=== PATIENT | female | born 1990 | race Caucasian/White ===

== ENCOUNTER 2016-07-27 17:57 | Emergency (ER) | payer MEDICARE, OTHER ==
[2016-07-27] MEDS ORDERED: SODIUM CHLORIDE 0.9% 1,000 ML IV STA (18:31)
[2016-07-27] MEDS ORDERED: ONDANSETRON 4 MG/2 ML VIAL IVP STA (18:31)
--- NOTE | 2016-07-27 18:39 | ED ---
General Adult HPI - General Chief complaint: Nausea/Vomiting/Diarrhea Stated complaint: CHEST CONGESTION, VOMITING, POSS UTI Time Seen by Provider: 07/27/16 18:16 Source: patient, RN notes reviewed Mode of arrival: wheelchair Limitations: physical limitation - History of Present Illness Initial comments: Patient is a 25 [place] presenting to emergency Department with chief complaint of chest congestion for the past 3 days, one episode of vomiting earlier this evening as well as urinary tract infection symptoms including frequency and foul odor for the past 2 days. Patient has a past medical history significant for spina bifida, renal stones and ovarian problems. She denies any vaginal discharge or specific abdominal pain or back pain. She reports that she does have a chest pain that is worse with cough, and she notices that she has chest pain while laying down. She reports it is mainly in the anterior chest towards the right side of her chest. She states that she does have a history of tachycardia states that that is normal for her. Patient reports that she's felt slightly chilled, but denies specific fever. Patient denies any lower extremity swelling, she does report that she has extremely limited movement of the lower extremities due to spina bifida. Denies any recent fever, back pain, abdominal pain, nausea vomiting, numbness or tingling , dysuria or hematuria, constipation or diarrhea, headaches or visual changes, or any other current symptoms. - Related Data Home Medications Medication Instructions Recorded Confirmed D-Methorphan/Acetamin/Doxylamn 10 ml PO Q6H PRN 07/27/16 07/27/16 [Vicks Nyquil Cold & Flu Liquid] Previous Rx's Medication Instructions Recorded Levofloxacin [Levaquin] 750 mg PO DAILY #5 tab 07/27/16 methylPREDNISolone Dose Pack 4 mg PO DIRECTED #21 package 07/27/16 [Medrol Dose Pack] Allergies Allergy/AdvReac Type Severity Reaction Status Date / Time Latex, Natural Rubber Allergy FEVER Verified 07/27/16 18:38 Review of Systems ROS Statement: Those systems with pertinent positive or pertinent negative responses have been documented in the HPI. ROS Other: All systems not noted in ROS Statement are negative. 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 LEAD RECREATION ASSISTANT shunt. Past Anesthesia/Blood Transfusion Reactions: No Reported Reaction Past Psychological History: No Psychological Hx Reported Additional Psychological History / Comment(s): Single has a boyfriend who helps her in the home setting. Relates her she's living right now there is no running water and she understands that is a significant problem. Currently trying to move into a new situation with her fianc so he can have a safer setting. Knows to use alcohol based hand hall cleaner. She of course does straight cath and hand hygiene is very important. no travel history. No animal exposures. No experience no current work history Smoking Status: Never smoker Past Alcohol Use History: None Reported Past Drug Use History: None Reported - Past Family History Mother Family Medical History: Cancer Additional Family Medical History / Comment(s): grandparents - lung General Exam - General Exam Comments Initial Comments: Patient is a pleasant 25-year-old female. She does not appear to be in any specific distress at this time. Limitations: physical limitation (Patient has history of spina bifida, she is unable to ambulate.) General appearance: alert, in no apparent distress Head exam: Present: atraumatic, normocephalic, normal inspection Eye exam: Present: normal appearance, PERRL, EOMI. Absent: scleral icterus, conjunctival injection, periorbital swelling ENT exam: Present: normal exam, normal oropharynx (Mildly erythematous oropharynx), mucous membranes moist, TM's normal bilaterally Neck exam: Present: normal inspection. Absent: tenderness, meningismus, lymphadenopathy Respiratory exam: Present: normal lung sounds bilaterally. Absent: respiratory distress, wheezes, rales, rhonchi, stridor Cardiovascular Exam: Present: regular rate, normal rhythm, normal heart sounds. Absent: systolic murmur, diastolic murmur, rubs, gallop, clicks GI/Abdominal exam: Present: soft, normal bowel sounds. Absent: distended, tenderness, guarding, rebound, rigid Extremities exam: Present: normal inspection, normal capillary refill, other ( Patient has limited range of motion of the bilateral lower extremities due to spina bifida.). Absent: tenderness, pedal edema, joint swelling, calf tenderness Back exam: Present: normal inspection Neurological exam: Present: alert, oriented X3, CN II-XII intact Psychiatric exam: Present: normal affect, normal mood Skin exam: Present: warm, dry, intact, normal color. Absent: rash Course Vital Signs 07/27/16 07/27/16 07/27/16 18:07 19:43 21:48 Temperature 97.5 F L 98.8 F 98.2 F Pulse Rate 120 H 133 H 122 H Respiratory 20 18 20 Rate Blood Pressure 129/87 143/72 132/78 O2 Sat by Pulse 100 98 98 Oximetry Medical Decision Making - Medical Decision Making She was 25-year-old female with chief complaint of chest congestion for the past 3 days urinary tract infection symptoms and one episode of nausea. She denies a specific abdominal or back pain. Initial labs were obtained and EKG was obtained due to patient's tachycardia. Patient's urinalysis is consistent with a urinary tract infection. Patient was given chest x-ray and KUB x-ray, which were negative for any acute process. Patient had an elevated D dimer of 3.4. At that point patient is given a CT angios the chest. CT MEIER was read to have no evidence of acute pulmonary embolism. There is evidence of infiltrates over the lingula consistent with a infectious process. Patient will be started on antibiotics to cover urinary tract as well as a upper respirator infection. Patient also be given a course of steroids due to her coughing and lung inflammation. Patient understands treatment plan and will comply. Return parameters were discussed. - Lab Data Result diagrams: 07/27/16 18:47 07/27/16 18:47 Lab Results 07/27/16 07/27/16 07/27/16 Range/Units 18:47 18:47 18:47 WBC 12.5 H (3.8-10.6) k/uL RBC 4.68 (3.80-5.40) m/uL Hgb 11.6 (11.4-16.0) gm/dL Hct 37.0 (34.0-46.0) % MCV 79.1 L (80.0-100.0) fL MCH 24.8 L (25.0-35.0) pg MCHC 31.3 (31.0-37.0) g/dL RDW 13.9 (11.5-15.5) % Plt Count 370 (150-450) k/uL Neutrophils % 74 % Lymphocytes % 20 % Monocytes % 4 % Eosinophils % 0 % Basophils % 0 % Neutrophils # 9.3 H (1.3-7.7) k/uL Lymphocytes # 2.5 (1.0-4.8) k/uL Monocytes # 0.5 (0-1.0) k/uL Eosinophils # 0.0 (0-0.7) k/uL Basophils # 0.0 (0-0.2) k/uL Hypochromasia Slight PT (9.0-12.0) sec INR (<1.1) APTT (22.0-30.0) sec D-Dimer (<0.60) mg/L FEU Sodium 139 (137-145) mmol/L Potassium 3.7 (3.5-5.1) mmol/L Chloride 102 (98-107) mmol/L Carbon Dioxide 25 (22-30) mmol/L Anion Gap 12 mmol/L BUN 18 H (7-17) mg/dL Creatinine 0.70 (0.52-1.04) mg/dL Est GFR (MDRD) Af Amer >60 (>60 ml/min/1.73 sqM) Est GFR (MDRD) Non-Af >60 (>60 ml/min/1.73 sqM) Glucose 90 (74-99) mg/dL Calcium 9.7 (8.4-10.2) mg/dL Magnesium 1.8 (1.6-2.3) mg/dL Total Bilirubin 0.4 (0.2-1.3) mg/dL AST 20 (14-36) U/L ALT 29 (9-52) U/L Alkaline Phosphatase 71 (38-126) U/L Total Creatine Kinase (30-135) U/L CK-MB (CK-2) (0.0-2.4) ng/mL CK-MB (CK-2) Rel Index Troponin I (0.000-0.034) ng/mL Total Protein 8.1 (6.3-8.2) g/dL Albumin 4.6 (3.5-5.0) g/dL Urine Color Yellow Urine Appearance Turbid H (Clear) Urine pH 5.5 (5.0-8.0) Ur Specific [place] 1.014 (1.001-1.035) Urine Protein 1+ H (Negative) Urine Glucose (UA) Negative (Negative) Urine Ketones Negative (Negative) Urine Blood Negative (Negative) Urine Nitrate Negative (Negative) Urine Bilirubin Negative (Negative) Urine Urobilinogen <2.0 (<2.0) mg/dL Ur Leukocyte Esterase Small H (Negative) Urine RBC 15 H (0-5) /hpf Urine WBC 86 H (0-5) /hpf Urine WBC Clumps Few H (None) /hpf Ur Squamous Epith Cells 9 H (0-4) /hpf Urine Bacteria Many H (None) /hpf Urine Mucus Occasional H (None) /hpf Urine HCG, Qual (Not Detectd) Group A Strep Rapid (Negative) 07/27/16 07/27/16 07/27/16 Range/Units 18:47 18:47 18:47 WBC (3.8-10.6) k/uL RBC (3.80-5.40) m/uL Hgb (11.4-16.0) gm/dL Hct (34.0-46.0) % MCV (80.0-100.0) fL MCH (25.0-35.0) pg MCHC (31.0-37.0) g/dL RDW (11.5-15.5) % Plt Count (150-450) k/uL Neutrophils % % Lymphocytes % % Monocytes % % Eosinophils % % Basophils % % Neutrophils # (1.3-7.7) k/uL Lymphocytes # (1.0-4.8) k/uL Monocytes # (0-1.0) k/uL Eosinophils # (0-0.7) k/uL Basophils # (0-0.2) k/uL Hypochromasia PT 10.5 (9.0-12.0) sec INR 1.0 (<1.1) APTT 24.3 (22.0-30.0) sec D-Dimer 3.40 H (<0.60) mg/L FEU Sodium (137-145) mmol/L Potassium (3.5-5.1) mmol/L Chloride (98-107) mmol/L Carbon Dioxide (22-30) mmol/L Anion Gap mmol/L BUN (7-17) mg/dL Creatinine (0.52-1.04) mg/dL Est GFR (MDRD) Af Amer (>60 ml/min/1.73 sqM) Est GFR (MDRD) Non-Af (>60 ml/min/1.73 sqM) Glucose (74-99) mg/dL Calcium (8.4-10.2) mg/dL Magnesium (1.6-2.3) mg/dL Total Bilirubin (0.2-1.3) mg/dL AST (14-36) U/L ALT (9-52) U/L Alkaline Phosphatase (38-126) U/L Total Creatine Kinase 167 H (30-135) U/L CK-MB (CK-2) 0.6 (0.0-2.4) ng/mL CK-MB (CK-2) Rel Index 0.4 Troponin I <0.012 (0.000-0.034) ng/mL Total Protein (6.3-8.2) g/dL Albumin (3.5-5.0) g/dL Urine Color Urine Appearance (Clear) Urine pH (5.0-8.0) Ur Specific [place] (1.001-1.035) Urine Protein (Negative) Urine Glucose (UA) (Negative) Urine Ketones (Negative) Urine Blood (Negative) Urine Nitrate (Negative) Urine Bilirubin (Negative) Urine Urobilinogen (<2.0) mg/dL Ur Leukocyte Esterase (Negative) Urine RBC (0-5) /hpf Urine WBC (0-5) /hpf Urine WBC Clumps (None) /hpf Ur Squamous Epith Cells (0-4) /hpf Urine Bacteria (None) /hpf Urine Mucus (None) /hpf Urine HCG, Qual (Not Detectd) Group A Strep Rapid Negative (Negative) 07/27/16 Range/Units 18:47 WBC (3.8-10.6) k/uL RBC (3.80-5.40) m/uL Hgb (11.4-16.0) gm/dL Hct (34.0-46.0) % MCV (80.0-100.0) fL MCH (25.0-35.0) pg MCHC (31.0-37.0) g/dL RDW (11.5-15.5) % Plt Count (150-450) k/uL Neutrophils % % Lymphocytes % % Monocytes % % Eosinophils % % Basophils % % Neutrophils # (1.3-7.7) k/uL Lymphocytes # (1.0-4.8) k/uL Monocytes # (0-1.0) k/uL Eosinophils # (0-0.7) k/uL Basophils # (0-0.2) k/uL Hypochromasia PT (9.0-12.0) sec INR (<1.1) APTT (22.0-30.0) sec D-Dimer (<0.60) mg/L FEU Sodium (137-145) mmol/L Potassium (3.5-5.1) mmol/L Chloride (98-107) mmol/L Carbon Dioxide (22-30) mmol/L Anion Gap mmol/L BUN (7-17) mg/dL Creatinine (0.52-1.04) mg/dL Est GFR (MDRD) Af Amer (>60 ml/min/1.73 sqM) Est GFR (MDRD) Non-Af (>60 ml/min/1.73 sqM) Glucose (74-99) mg/dL Calcium (8.4-10.2) mg/dL Magnesium (1.6-2.3) mg/dL Total Bilirubin (0.2-1.3) mg/dL AST (14-36) U/L ALT (9-52) U/L Alkaline Phosphatase (38-126) U/L Total Creatine Kinase (30-135) U/L CK-MB (CK-2) (0.0-2.4) ng/mL CK-MB (CK-2) Rel Index Troponin I (0.000-0.034) ng/mL Total Protein (6.3-8.2) g/dL Albumin (3.5-5.0) g/dL Urine Color Urine Appearance (Clear) Urine pH (5.0-8.0) Ur Specific [place] (1.001-1.035) Urine Protein (Negative) Urine Glucose (UA) (Negative) Urine Ketones (Negative) Urine Blood (Negative) Urine Nitrate (Negative) Urine Bilirubin (Negative) Urine Urobilinogen (<2.0) mg/dL Ur Leukocyte Esterase (Negative) Urine RBC (0-5) /hpf Urine WBC (0-5) /hpf Urine WBC Clumps (None) /hpf Ur Squamous Epith Cells (0-4) /hpf Urine Bacteria (None) /hpf Urine Mucus (None) /hpf Urine HCG, Qual Not Detected (Not Detectd) Group A Strep Rapid (Negative) 07/27/16 19:06 EKG shows sinus tachycardia with a ventricular rate of 107 beats per minute. SC interval 140 ms. QRS duration 70 ms. QT/QTc is 318/424 ms. No evidence of ST elevation or T-wave inversion. Patient reports that sinus tachycardia is a normal variant for her. - Radiology Data Radiology results: report reviewed CT angiogram chest reveals no evidence of acute pulmonary embolism. Patchy traits in the lingula and left upper lobe which indicates multifocal acute infectious process cannot be excluded. This was read by Dr. Clarke. KUB reveals no overall nonspecific bowel gas pattern. There is some possibility of bowel gas visualized and nondistended bowel loops. Gas and fecal matter is noticed in the nondistended colon. Rotary scoliosis 10 instructed. Surgical change of the left lower thoracic spine. 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 Surgical clips left and left upper pelvis area. No pneumoperitoneum. No suspicious constipation present. There is a right DP catheter terminates at the level of the liver margin. This is external to the intraoral pericardial cavity on prior CT. Chest x-ray shows no acute process. No significant change from prior. Disposition Clinical Impression: Urinary tract infection, Pneumonia, Cough Disposition: HOME SELF-CARE Condition: Good Instructions: Pneumonia (ED), Urinary Tract Infection in Women (ED) Additional Instructions: Patient started to rest, increase fluids and completely antibiotic and steroid prescription. Follow-up with primary care provider within the next 2-3 days. Return to the EC if any alarming signs or symptoms occur. Continue use over-the -counter remedies such as NyQuil, Motrin Tylenol for pain fevers. Prescriptions: Levofloxacin [Levaquin] 750 mg PO DAILY #5 tab methylPREDNISolone Dose Pack [Medrol Dose Pack] 4 mg PO DIRECTED #21 package Referrals: Erasmo Edward DO [Primary Care Provider] - 1-2 days Time of Disposition: 21:11
[2016-07-27 19:03] LABS: Basophils % (A) 0 %; CH 24.9; CHCM 31.5; Eosinophils % (A) 0 %; HDW 2.61; HGB 11.6 gm/dL (11.4-16.0); Hypochromasia Slight; Luc # (Auto) 0.17; Luc % (Auto) 1; Lymphocytes # (A) 2.5 k/uL (1.0-4.8); Lymphocytes % (A) 20 %; MCH 24.8 pg (25.0-35.0); MCHC 31.3 g/dL (31.0-37.0); MCV 79.1 fL (80.0-100.0); Mean Platelet Volume 5.9; Monocytes # (A) 0.5 k/uL (0-1.0); Monocytes % (A) 4 %; Neutrophils # (A) 9.3 k/uL (1.3-7.7); Neutrophils % (A) 74 %; RBC 4.68 m/uL (3.80-5.40); RDW 13.9 % (11.5-15.5); WBC 12.5 k/uL (3.8-10.6); WBC (Perox) 13.11
[2016-07-27 19:08] LABS: Appearance,Urine Turbid (Clear); Bacteria,Urine Many /hpf; Bilirubin,Urine Negative (Negative); Glucose,Urine (UA) Negative (Negative); Ketones,Urine Negative (Negative); Leukocyte Esterase,Urine Small (Negative); Mucus,Urine Occasional /hpf; Nitrite,Urine Negative (Negative); PH, Urine 5.5 (5.0-8.0); Particle Count 15413; Protein,Urine 1+ (Negative); RBC,Urine 15 /hpf (0-5); Specific Gravity,Urine 1.014 (1.001-1.035); Squamous Epithelial Cell,Urine 9 /hpf (0-4); UA Billing (MACRO vs. MICRO) MICRO; Urobilinogen,Urine <2.0 mg/dL (<2.0); WBC,Urine 86 /hpf (0-5)
[2016-07-27 19:17] LABS: ALT 29 U/L (9-52); AST 20 U/L (14-36); Alkaline Phosphatase 71 U/L (38-126); Anion Gap 12 mmol/L; Blood Urea Nitrogen 18 mg/dL (7-17); Calcium 9.7 mg/dL (8.4-10.2); Carbon Dioxide 25 mmol/L (22-30); Chloride 102 mmol/L (98-107); Glucose 90 mg/dL (74-99); Magnesium 1.8 mg/dL (1.6-2.3); Non-African American GFR(MDRD) >60 (>60 ml/min/1.73 sqM); Potassium 3.7 mmol/L (3.5-5.1); Sodium 139 mmol/L (137-145); Total Bilirubin 0.4 mg/dL (0.2-1.3); Total Protein 8.1 g/dL (6.3-8.2)
[2016-07-27 19:26] LABS: Creatine Kinase 167 U/L (30-135)
[2016-07-27 19:28] LABS: Partial Thromboplastin Time 24.3 sec (22.0-30.0); Prothrombin Time 10.5 sec (9.0-12.0)
[2016-07-27 19:39] LABS: Creatine Kinase MB 0.6 ng/mL (0.0-2.4); Troponin I <0.012 ng/mL (0.000-0.034)
[2016-07-27] MEDS ORDERED: RX INFO: IV CONTRAST WAS GIVEN 1 EACH MISC MISCELLANE PRN ×2 (19:41→19:51)
--- NOTE | 2016-07-27 19:46 | XR ---
EXAMINATION TYPE: XR chest 2V DATE OF EXAM: 07/27/2016 7:32 PM COMPARISON: Prior chest x-ray March 25, 2016. HISTORY: Vomiting and chest pain. History of paraplegia. TECHNIQUE: Frontal and lateral views of the chest are obtained. FINDINGS: Overlying right-sided BEHAVIOR CLINICIAN shunt catheter is redemonstrated. Low lung volumes are again seen . There is no focal air space opacity, pleural effusion, or pneumothorax seen. The cardiac silhouett e size is stable and within normal limits. Surgical change in lumbar spine is redemonstrated. Underly ing scoliosis is redemonstrated. IMPRESSION: No suspicious acute process. No significant change from prior.
--- NOTE | 2016-07-27 19:49 | XR ---
EXAMINATION TYPE: XR abdomen 2V DATE OF EXAM: 07/27/2016 7:33 PM CLINICAL HISTORY: Abdominal pain and vomiting. TECHNIQUE: Supine and upright views of the abdomen are obtained. COMPARISON: Abdominal x-ray series March 25, 2016. CT abdomen pelvis April 14, 2016. FINDINGS: Scattered gas is seen in non-distended stomach small. There is some paucity of small bowel gas with visualized gas noted in nondistended small bowel loops. Gas and fecal material is seen in n on-distended colon. There is marked rotary scoliosis redemonstrated. Surgical change left lateral low er thoracic spine is redemonstrated. There is chronic dysplasia and dislocation left hip. Surgical cl ips left upper pelvis are redemonstrated. No pneumoperitoneum or suspicious calcification is present. Right-sided CORE STRIPPER shunt catheter terminates at level of liver margin. This is external to interpericard ial cavity on prior CT. IMPRESSION: Overall nonspecific felt to be nonobstructive bowel gas pattern.
--- NOTE | 2016-07-27 20:37 | CT ---
EXAMINATION TYPE: CT angio chest DATE OF EXAM: 07/27/2016 8:23 PM COMPARISON: NONE HISTORY: Patient complains of chest congestion and cough. CT DLP: 422 mGycm Automated exposure control for dose reduction was used. CONTRAST: CTA scan of the thorax is performed with IV Contrast, patient injected with 100 mL of Omnipaque 350, pulmonary embolism protocol. MIP images are created and reviewed. FINDINGS: LUNGS: Low lung volumes are noted. Exam is slightly suboptimal due to motion artifact. There is some patchy infiltrate in the lingula near left heart border. There is some additional patchy groundglass opacity in the left upper lobe. There is no pleural effusion or pneumothorax seen bilaterally. The tracheobronchial tree is patent. MEDIASTINUM: There is satisfactory enhancement of the pulmonary artery and its branches, there is no CT evidence for pulmonary embolism. There are no greater than 1 cm hilar or mediastinal lymph nodes. No cardiomegaly or pericardial effusion is seen. Soft tissue density anterior superior mediastinum is felt to reflect residual normal thymus tissue OTHER: Right-sided PATENT LAWYER shunt catheter in the anterior thoracic wall is redemonstrated. There is under lying marked rotary scoliosis redemonstrated. IMPRESSION: 1. NO CT EVIDENCE FOR PULMONARY EMBOLISM. 2. PATCHY INFILTRATES IN THE [place]A AND LEFT UPPER LOBE IN WHICH MULTIFOCAL ACUTE INFECTIOUS PROCESS CANNOT BE EXCLUDED.
[2016-07-27 21:50] VITALS: BP 132/78; PULSE 122; RESP 20; TEMP 98.2
== END 2016-07-27 21:48 | disposition home or self-care (01) ==
LOC: EC 17:57
DX: J18.9 Pneumonia, unspecified organism (principal); N39.0 Urinary tract infection, site not specified; Q05.9 Spina bifida, unspecified; Z98.2 Presence of cerebrospinal fluid drainage device; Z91.040 Latex allergy status
CPT/HCPCS: 36415; 93005; 85379; 80053; 82550; 82553; 83735; 84484; 85025; 85610; 85730; 81001; 81025; 87086; 87081; 87430; 87077; 87186; 71020; 74020; 71275; 99284; 96374; 96361 ×3; Q9967; J2405

== ENCOUNTER 2016-07-31 15:42 | Emergency (ER) | payer MEDICARE, OTHER ==
[2016-07-31] MEDS ORDERED: ONDANSETRON 4 MG/2 ML VIAL IVP STA (16:46)
[2016-07-31] MEDS ORDERED: SODIUM CHLORIDE 0.9% 1,000 ML IV STA ×2 (16:46)
--- NOTE | 2016-07-31 16:48 | ED ---
General Adult HPI - General Chief complaint: Dizziness Stated complaint: Dizzy Time Seen by Provider: 07/31/16 16:39 Source: patient, RN notes reviewed, old records reviewed Mode of arrival: wheelchair Limitations: no limitations - History of Present Illness Initial comments: Patient is a 25-year-old female who presents emergency room today with a chief complaint of feeling lightheaded and dizzy. Patient does admit that she was seen here in the emergency room diagnosed recently with urinary tract infection and pneumonia. Patient has been on antibiotics of Levaquin over the last 3 days. She states she does not seem to be feeling much better. She states she still having some dysuria with burning on urination. Admits to a cough and congestion. Patient denies any other complaints or symptoms currently. Patient denies any recent fever, chills, shortness of breath, chest pain, back pain, vomiting, numbness or tingling, constipation or diarrhea, headaches or visual changes, or any other complaints. - Related Data Home Medications Medication Instructions Recorded Confirmed Levofloxacin [Levaquin] 750 mg PO DAILY 07/31/16 07/31/16 methylPREDNISolone Dose Pack See Taper PO DAILY 07/31/16 07/31/16 [Medrol Dose Pack] Previous Rx's Medication Instructions Recorded Metoclopramide HCl [Reglan] 10 mg PO Q6HR PRN #5 day 07/31/16 Allergies Allergy/AdvReac Type Severity Reaction Status Date / Time Latex, Natural Rubber Allergy FEVER Verified 07/31/16 17:03 Review of Systems ROS Statement: Those systems with pertinent positive or pertinent negative responses have been documented in the HPI. ROS Other: All systems not noted in ROS Statement are negative. 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 Past Anesthesia/Blood Transfusion Reactions: No Reported Reaction Past Psychological History: No Psychological Hx Reported Additional Psychological History / Comment(s): Single has a boyfriend who helps her in the home setting. Relates her she's living right now there is no running water and she understands that is a significant problem. Currently trying to move into a new situation with her fianc so he can have a safer setting. Knows to use alcohol based hand boat cleaner. She of course does straight cath and hand hygiene is very important. no travel history. No animal exposures. No experience no current work history Smoking Status: Never smoker Past Alcohol Use History: None Reported Past Drug Use History: None Reported - Past Family History Mother Family Medical History: Cancer Additional Family Medical History / Comment(s): grandparents - lung General Exam - General Exam Comments Initial Comments: General: The patient is awake and alert, in no distress, and does not appear acutely ill. Eye: Pupils are equal, round and reactive to light, extra-ocular movements are intact. No nystagmus. There is normal conjunctiva bilaterally. No signs of icterus. Ears, nose, mouth and throat: There are moist mucous membranes and no oral lesions. Neck: The neck is supple, there is no tenderness or JVD. Cardiovascular: There is a regular rate and rhythm. No murmur, rub or gallop is appreciated. Respiratory: Lungs are clear to auscultation, respirations are non-labored, breath sounds are equal. No wheezes, stridor, rales, or rhonchi. Gastrointestinal: Soft, non-distended, non-tender abdomen without masses or organomegaly noted. There is no rebound or guarding present. No CVA tenderness. Bowel sounds are unremarkable. Musculoskeletal: Normal ROM, no tenderness. Strength 5/5. Sensation intact. Pulses equal bilaterally 2+. Neurological: A&O x 3. CN II-XII intact, There are no obvious motor or sensory deficits. Coordination appears grossly intact. Speech is normal. Skin: Skin is warm and dry and no rashes or lesions are noted. Psychiatric: Cooperative, appropriate mood & affect, normal judgment. Limitations: no limitations Course Vital Signs 07/31/16 07/31/16 07/31/16 15:57 16:40 17:46 Temperature 98.3 F 98.1 F Pulse Rate 129 H 125 H 117 H Respiratory 20 16 16 Rate Blood Pressure 146/99 140/86 O2 Sat by Pulse 98 99 100 Oximetry 07/31/16 18:28 Temperature Pulse Rate 92 Respiratory 16 Rate Blood Pressure 126/73 O2 Sat by Pulse 100 Oximetry Medical Decision Making - Medical Decision Making The patient reexamined at this time shows no signs of distress. Patient's patient labs been reviewed. White count improved. Patient's urinalysis improving. Patient's chest x-ray shows no pneumonia today. Patient has been on Levaquin for 3 days. States she's been feeling lightheaded and dizzy. She is feeling better after fluids. Does admit that her appetite spelled decreased at home. Patient feeling better at this time. Was discussed about getting meclizine and Valium. She states that this time she does need to leave to go home because her ride needs to go to work. Patient advised follow family doctor return if symptoms increase worsen. Patient states understanding and is in agreement. - Lab Data Result diagrams: 07/31/16 18:00 07/31/16 18:00 Lab Results 07/31/16 07/31/16 07/31/16 Range/Units 18:00 18:00 18:30 WBC 9.9 (3.8-10.6) k/uL RBC 4.87 (3.80-5.40) m/uL Hgb 12.2 (11.4-16.0) gm/dL Hct 38.2 (34.0-46.0) % MCV 78.4 L (80.0-100.0) fL MCH 25.1 (25.0-35.0) pg MCHC 32.0 (31.0-37.0) g/dL RDW 14.3 (11.5-15.5) % Plt Count 416 (150-450) k/uL Neutrophils % 74 % Lymphocytes % 19 % Monocytes % 5 % Eosinophils % 0 % Basophils % 0 % Neutrophils # 7.3 (1.3-7.7) k/uL Lymphocytes # 1.9 (1.0-4.8) k/uL Monocytes # 0.5 (0-1.0) k/uL Eosinophils # 0.0 (0-0.7) k/uL Basophils # 0.0 (0-0.2) k/uL Sodium 143 (137-145) mmol/L Potassium 3.8 (3.5-5.1) mmol/L Chloride 104 (98-107) mmol/L Carbon Dioxide 23 (22-30) mmol/L Anion Gap 16 mmol/L BUN 18 H (7-17) mg/dL Creatinine 0.57 (0.52-1.04) mg/dL Est GFR (MDRD) Af Amer >60 (>60 ml/min/1.73 sqM) Est GFR (MDRD) Non-Af >60 (>60 ml/min/1.73 sqM) Glucose 101 H (74-99) mg/dL Calcium 10.1 (8.4-10.2) mg/dL Total Bilirubin 0.5 (0.2-1.3) mg/dL AST 16 (14-36) U/L ALT 26 (9-52) U/L Alkaline Phosphatase 71 (38-126) U/L Total Protein 8.7 H (6.3-8.2) g/dL Albumin 5.0 (3.5-5.0) g/dL Urine Color Urine Appearance (Clear) Urine pH (5.0-8.0) Ur Specific [place] (1.001-1.035) Urine Protein (Negative) Urine Glucose (UA) (Negative) Urine Ketones (Negative) Urine Blood (Negative) Urine Nitrate (Negative) Urine Bilirubin (Negative) Urine Urobilinogen (<2.0) mg/dL Ur Leukocyte Esterase (Negative) Urine RBC (0-5) /hpf Urine WBC (0-5) /hpf Ur Squamous Epith Cells (0-4) /hpf Urine Bacteria (None) /hpf Urine Mucus (None) /hpf Urine HCG, Qual Not Detected (Not Detectd) 07/31/16 Range/Units 18:30 WBC (3.8-10.6) k/uL RBC (3.80-5.40) m/uL Hgb (11.4-16.0) gm/dL Hct (34.0-46.0) % MCV (80.0-100.0) fL MCH (25.0-35.0) pg MCHC (31.0-37.0) g/dL RDW (11.5-15.5) % Plt Count (150-450) k/uL Neutrophils % % Lymphocytes % % Monocytes % % Eosinophils % % Basophils % % Neutrophils # (1.3-7.7) k/uL Lymphocytes # (1.0-4.8) k/uL Monocytes # (0-1.0) k/uL Eosinophils # (0-0.7) k/uL Basophils # (0-0.2) k/uL Sodium (137-145) mmol/L Potassium (3.5-5.1) mmol/L Chloride (98-107) mmol/L Carbon Dioxide (22-30) mmol/L Anion Gap mmol/L BUN (7-17) mg/dL Creatinine (0.52-1.04) mg/dL Est GFR (MDRD) Af Amer (>60 ml/min/1.73 sqM) Est GFR (MDRD) Non-Af (>60 ml/min/1.73 sqM) Glucose (74-99) mg/dL Calcium (8.4-10.2) mg/dL Total Bilirubin (0.2-1.3) mg/dL AST (14-36) U/L ALT (9-52) U/L Alkaline Phosphatase (38-126) U/L Total Protein (6.3-8.2) g/dL Albumin (3.5-5.0) g/dL Urine Color Yellow Urine Appearance Cloudy H (Clear) Urine pH 5.5 (5.0-8.0) Ur Specific [place] 1.016 (1.001-1.035) Urine Protein 1+ H (Negative) Urine Glucose (UA) Negative (Negative) Urine Ketones Negative (Negative) Urine Blood Trace H (Negative) Urine Nitrate Negative (Negative) Urine Bilirubin Negative (Negative) Urine Urobilinogen <2.0 (<2.0) mg/dL Ur Leukocyte Esterase Trace H (Negative) Urine RBC 13 H (0-5) /hpf Urine WBC 40 H (0-5) /hpf Ur Squamous Epith Cells 3 (0-4) /hpf Urine Bacteria Rare H (None) /hpf Urine Mucus Rare H (None) /hpf Urine HCG, Qual (Not Detectd) Disposition Clinical Impression: Community acquired pneumonia, UTI (urinary tract infection) Disposition: HOME SELF-CARE Condition: Good Instructions: Dizziness (ED) Additional Instructions: Please use medication as discussed. Please follow-up with family doctor in the next 2 days of symptoms have not improved. Please return to emergency room if the symptoms increase or worsen or for any other concerns. Prescriptions: Metoclopramide HCl [Reglan] 10 mg PO Q6HR PRN #5 day PRN Reason: Nausea Time of Disposition: 19:37
[2016-07-31 18:13] LABS: Basophils % (A) 0 %; CH 25.4; CHCM 32.5; Eosinophils % (A) 0 %; HCT 38.2 % (34.0-46.0); HGB 12.2 gm/dL (11.4-16.0); Luc # (Auto) 0.11; Luc % (Auto) 1; Lymphocytes # (A) 1.9 k/uL (1.0-4.8); Lymphocytes % (A) 19 %; MCH 25.1 pg (25.0-35.0); MCV 78.4 fL (80.0-100.0); Mean Platelet Volume 6.7; Monocytes # (A) 0.5 k/uL (0-1.0); Monocytes % (A) 5 %; Neutrophils # (A) 7.3 k/uL (1.3-7.7); Neutrophils % (A) 74 %; RBC 4.87 m/uL (3.80-5.40); RDW 14.3 % (11.5-15.5); WBC 9.9 k/uL (3.8-10.6); WBC (Perox) 9.97
[2016-07-31 18:27] LABS: ALT 26 U/L (9-52); AST 16 U/L (14-36); Alkaline Phosphatase 71 U/L (38-126); Anion Gap 16 mmol/L; Blood Urea Nitrogen 18 mg/dL (7-17); Calcium 10.1 mg/dL (8.4-10.2); Carbon Dioxide 23 mmol/L (22-30); Chloride 104 mmol/L (98-107); Glucose 101 mg/dL (74-99); Non-African American GFR(MDRD) >60 (>60 ml/min/1.73 sqM); Potassium 3.8 mmol/L (3.5-5.1); Sodium 143 mmol/L (137-145); Total Bilirubin 0.5 mg/dL (0.2-1.3); Total Protein 8.7 g/dL (6.3-8.2)
[2016-07-31 18:47] LABS: Appearance,Urine Cloudy (Clear); Bacteria,Urine Rare /hpf; Bilirubin,Urine Negative (Negative); Glucose,Urine (UA) Negative (Negative); Ketones,Urine Negative (Negative); Leukocyte Esterase,Urine Trace (Negative); Mucus,Urine Rare /hpf; Nitrite,Urine Negative (Negative); PH, Urine 5.5 (5.0-8.0); Particle Count 4191; Protein,Urine 1+ (Negative); RBC,Urine 13 /hpf (0-5); Specific Gravity,Urine 1.016 (1.001-1.035); Squamous Epithelial Cell,Urine 3 /hpf (0-4); UA Billing (MACRO vs. MICRO) MICRO; Urobilinogen,Urine <2.0 mg/dL (<2.0); WBC,Urine 40 /hpf (0-5)
--- NOTE | 2016-07-31 19:16 | XR ---
EXAMINATION TYPE: XR chest 2V DATE OF EXAM: 07/31/2016 7:02 PM COMPARISON: Prior chest x-ray 27 July 2016 HISTORY: Cough, chest pain TECHNIQUE: Frontal and lateral views of the chest are obtained. FINDINGS: There is no focal air space opacity, pleural effusion, or pneumothorax seen. The cardiac silhouette size is within normal limits. Scoliotic curvature is present with side fixation at the upp er lumbar region. There is a ventriculoperitoneal shunt tubing as on prior exam, there are overlying cardiac leads. The osseous structures are intact. IMPRESSION: No acute cardiopulmonary process.
[2016-07-31 19:56] VITALS: BP 152/91; PULSE 91; RESP 18; TEMP 98.5
== END 2016-07-31 19:56 | disposition home or self-care (01) ==
LOC: EC 15:42
DX: J18.9 Pneumonia, unspecified organism (principal); N39.0 Urinary tract infection, site not specified; R05 Cough
CPT/HCPCS: 99284; 96374; 96361; 36415; 93005; 80053; 85025; 81001; 81025; 87086; 71020; J2405

== ENCOUNTER 2016-09-10 13:10 | Emergency (ER) | payer MEDICARE, OTHER ==
--- NOTE | 2016-09-10 14:23 | ED ---
General Adult HPI - General Chief complaint: Recheck/Abnormal Lab/Rx Stated complaint: Difficulty lifting head, chest pain Time Seen by Provider: 09/10/16 13:15 Source: patient, RN notes reviewed Mode of arrival: ambulatory Limitations: physical limitation - History of Present Illness Initial comments: This is a 25-year-old female who presents to the emergency department complaining of some sharp chest pain. Patient states she had pneumonia about a month ago and she stopped taking the antibiotics a few weeks ago and now she is having some sharp chest pain and she is wondering if the pneumonia is back. Patient states she's not had any shortness of breath or difficulty breathing. Patient states she has felt warm she did take Tylenol couple hours prior to arrival. Patient denies any abdominal pain which she states she often gets urinary tract infections and occasionally with urinary tract infection she does get a little bit of sharp chest pain and she doesn't know why. Patient currently does not have any chest pain. Patient denies any vomiting or diarrhea. Patient denies any recent injury or trauma. - Related Data Home Medications Medication Instructions Recorded Confirmed Acetaminophen [Tylenol] 500 mg PO ONCE 09/10/16 09/10/16 Previous Rx's Medication Instructions Recorded Nitrofurantoin Monohyd/M-Cryst 100 mg PO Q12HR #14 cap 09/10/16 [Macrobid] Allergies Allergy/AdvReac Type Severity Reaction Status Date / Time Latex, Natural Rubber Allergy FEVER Verified 09/10/16 14:40 Review of Systems ROS Statement: Those systems with pertinent positive or pertinent negative responses have been documented in the HPI. ROS Other: All systems not noted in ROS Statement are negative. 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 Past Anesthesia/Blood Transfusion Reactions: No Reported Reaction Past Psychological History: No Psychological Hx Reported Additional Psychological History / Comment(s): Single has a boyfriend who helps her in the home setting. Relates her she's living right now there is no running water and she understands that is a significant problem. Currently trying to move into a new situation with her fianc so he can have a safer setting. Knows to use alcohol based hand assembly cleaner. She of course does straight cath and hand hygiene is very important. no travel history. No animal exposures. No experience no current work history Smoking Status: Never smoker Past Alcohol Use History: None Reported Past Drug Use History: None Reported - Past Family History Mother Family Medical History: Cancer Additional Family Medical History / Comment(s): grandparents - lung General Exam - General Exam Comments Initial Comments: GENERAL: Patient is well-developed and well-nourished. Patient is nontoxic and well- hydrated and is in mild distress. ENT: Neck is soft and supple. No significant lymphadenopathy is noted. Oropharynx is clear. Moist mucous membranes. Neck has full range of motion without eliciting any pain. EYES: The sclera were anicteric and conjunctiva were pink and moist. Extraocular movements were intact and pupils were equal round and reactive to light. Eyelids were unremarkable. PULMONARY: Unlabored respirations. Good breath sounds bilaterally. No audible rales rhonchi or wheezing was noted. CARDIOVASCULAR: There is a regular rate and rhythm without any murmurs gallops or rubs. ABDOMEN: Soft and nontender with normal bowel sounds. No palpable organomegaly was noted. There is no palpable pulsatile mass. SKIN: Skin is clear with no lesions or rashes and otherwise unremarkable. NEUROLOGIC: Patient is alert and oriented x3. Cranial nerves II through XII are grossly intact. Motor and sensory are also intact. Normal speech, volume and content. Symmetrical smile. MUSCULOSKELETAL: Normal extremities with adequate strength and full range of motion. No lower extremity swelling or edema. No calf tenderness. LYMPHATICS: No significant lymphadenopathy is noted PSYCHIATRIC: Normal psychiatric evaluation. Normal interpersonal interactions appears functionally intact in deals appropriately with others. No signs of depression. No signs of anxiety. Limitations: physical limitation Course Vital Signs 09/10/16 09/10/16 13:14 14:10 Temperature 98.8 F Pulse Rate 140 H 121 H Respiratory 20 22 Rate Blood Pressure 126/77 116/72 O2 Sat by Pulse 100 100 Oximetry Medical Decision Making - Medical Decision Making Chest x-ray shows no acute abnormality Patient has a urinary tract infection I gave him Rocephin - Lab Data Lab Results 09/10/16 09/10/16 Range/Units 14:39 14:39 Urine Color Yellow Urine Appearance Cloudy H (Clear) Urine pH 5.5 (5.0-8.0) Ur Specific [place] 1.011 (1.001-1.035) Urine Protein 1+ H (Negative) Urine Glucose (UA) Negative (Negative) Urine Ketones Negative (Negative) Urine Blood Trace H (Negative) Urine Nitrate Negative (Negative) Urine Bilirubin Negative (Negative) Urine Urobilinogen <2.0 (<2.0) mg/dL Ur Leukocyte Esterase Trace H (Negative) Urine RBC 8 H (0-5) /hpf Urine WBC 78 H (0-5) /hpf Urine WBC Clumps Few H (None) /hpf Ur Squamous Epith Cells 5 H (0-4) /hpf Urine Bacteria Occasional H (None) /hpf Urine Mucus Few H (None) /hpf Urine HCG, Qual Not Detected (Not Detectd) Disposition Clinical Impression: Urinary tract infection Disposition: HOME SELF-CARE Instructions: Urinary Tract Infection in Women (ED) Prescriptions: Nitrofurantoin Monohyd/M-Cryst [Macrobid] 100 mg PO Q12HR #14 cap Referrals: Erasmo Edward DO [Primary Care Provider] - 1-2 days Time of Disposition: 16:33
[2016-09-10 15:00] LABS: Appearance,Urine Cloudy (Clear); Bacteria,Urine Occasional /hpf; Bilirubin,Urine Negative (Negative); Glucose,Urine (UA) Negative (Negative); Ketones,Urine Negative (Negative); Leukocyte Esterase,Urine Trace (Negative); Mucus,Urine Few /hpf; Nitrite,Urine Negative (Negative); PH, Urine 5.5 (5.0-8.0); Particle Count 24014; Protein,Urine 1+ (Negative); RBC,Urine 8 /hpf (0-5); Specific Gravity,Urine 1.011 (1.001-1.035); Squamous Epithelial Cell,Urine 5 /hpf (0-4); UA Billing (MACRO vs. MICRO) MICRO; Urobilinogen,Urine <2.0 mg/dL (<2.0); WBC,Urine 78 /hpf (0-5)
[2016-09-10] MEDS ORDERED: cefTRIAXone 1,000 MG VIAL (IM USE) IM ONE (15:15)
--- NOTE | 2016-09-10 16:31 | XR ---
EXAMINATION TYPE: XR chest 2V DATE OF EXAM: 09/10/2016 4:18 PM COMPARISON: 07/31/2016 HISTORY: 25-year-old female difficulty breathing TECHNIQUE: Frontal and lateral views FINDINGS: Accentuated lordotic positioning and low lung volumes limits evaluation. Heart appears normal size. N o consolidation or pleural effusion seen. There is some left lateral fusion hardware at the thoracolu mbar junction and S-shaped scoliosis. DIRECTOR OF APPLICATION DEVELOPMENT shunt catheter courses along the right side of the anterior chest. IMPRESSION: Hypoventilatory changes. No acute process seen. There is prominent S-shaped scoliosis and retained DIRECTOR OF APPLICATION DEVELOPMENT shunt catheter tubing.
[2016-09-10] MEDS ORDERED: LIDOCAINE 1% INJ 10MG/ML (20 ML MDV) SQ ONE (16:44)
[2016-09-10 16:49] VITALS: BP 126/85; PULSE 122; RESP 20; TEMP 98
== END 2016-09-10 16:57 | disposition home or self-care (01) ==
LOC: EC 13:10
DX: N39.0 Urinary tract infection, site not specified (principal); R07.9 Chest pain, unspecified; R29.898 Other symptoms and signs involving the musculoskeletal system; Z87.442 Personal history of urinary calculi; Z79.891 Long term (current) use of opiate analgesic; Z91.040 Latex allergy status; Z87.01 Personal history of pneumonia (recurrent); Z98.2 Presence of cerebrospinal fluid drainage device
CPT/HCPCS: 81001; 81025; 71020; 99285; 96372; J2001; J0696

== ENCOUNTER 2016-10-08 13:26 | Emergency (ER) | payer MEDICARE, OTHER ==
[2016-10-08 13:32] VITALS: BP 131/69; PULSE 84; RESP 20; TEMP 98.4
--- NOTE | 2016-10-08 13:45 | ED ---
Skin/Abscess/FB HPI - General Chief complaint: Skin/Abscess/Foreign Body Stated complaint: back redness Time Seen by Provider: 10/08/16 13:32 Source: patient, RN notes reviewed Mode of arrival: wheelchair Limitations: no limitations - History of Present Illness Initial comments: 25-year-old female presents emergency Department chief complaint of left shoulder pain that wraps around the left back. Patient states at home she started having this burning type sensation to the left shoulder. It is little bit of redness that is now resolved. She states even sensitive to the lightest touch across the back. There is no streaking to the area. They deny any fever chills with this 90 cough cold runny. Concerned due to the pain. They should be evaluated. Patient denies any recent fever, chills, shortness of breath, chest pain, abdominal pain, nausea vomiting, numbness or tingling, dysuria or hematuria, constipation or diarrhea, headaches or visual changes, or any other current symptoms. - Related Data Home Medications Medication Instructions Recorded Confirmed Metoprolol Tartrate [Lopressor] 1 tab PO BID 10/08/16 10/08/16 Previous Rx's Medication Instructions Recorded Acyclovir [Zovirax] 800 mg PO QID 7 Days 10/08/16 Hydrocodone/Acetaminophen [[place] 1 each PO Q6HR PRN #20 tab 10/08/16 5-325] Allergies Allergy/AdvReac Type Severity Reaction Status Date / Time Latex, Natural Rubber Allergy FEVER Verified 10/08/16 13:29 Review of Systems ROS Statement: Those systems with pertinent positive or pertinent negative responses have been documented in the HPI. ROS Other: All systems not noted in ROS Statement are negative. 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 Past Anesthesia/Blood Transfusion Reactions: No Reported Reaction Past Psychological History: No Psychological Hx Reported Additional Psychological History / Comment(s): Single has a boyfriend who helps her in the home setting. Relates her she's living right now there is no running water and she understands that is a significant problem. Currently trying to move into a new situation with her fianc so he can have a safer setting. Knows to use alcohol based hand truck cleaner. She of course does straight cath and hand hygiene is very important. no travel history. No animal exposures. No experience no current work history Smoking Status: Never smoker Past Alcohol Use History: None Reported Past Drug Use History: None Reported - Past Family History Mother Family Medical History: Cancer Additional Family Medical History / Comment(s): grandparents - lung General Exam Limitations: no limitations General appearance: alert, in no apparent distress Head exam: Present: atraumatic, normocephalic, normal inspection ENT exam: Present: normal exam, mucous membranes moist Neck exam: Present: normal inspection. Absent: tenderness, meningismus, lymphadenopathy Respiratory exam: Present: normal lung sounds bilaterally. Absent: respiratory distress, wheezes, rales, rhonchi, stridor Cardiovascular Exam: Present: regular rate, normal rhythm, normal heart sounds. Absent: systolic murmur, diastolic murmur, rubs, gallop, clicks Extremities exam: Present: normal inspection, full ROM, normal capillary refill. Absent: tenderness, pedal edema, joint swelling, calf tenderness Back exam: Present: normal inspection, full ROM, tenderness (To the left upper shoulder to light,). Absent: CVA tenderness (R), CVA tenderness (L), muscle spasm, paraspinal tenderness, vertebral tenderness, rash noted Neurological exam: Present: alert, oriented X3, CN II-XII intact Psychiatric exam: Present: normal affect, normal mood Skin exam: Present: warm, dry, intact, normal color. Absent: rash Course Vital Signs 10/08/16 13:30 Temperature 98.4 F Pulse Rate 84 Respiratory 20 Rate Blood Pressure 131/69 O2 Sat by Pulse 97 Oximetry Medical Decision Making - Medical Decision Making 25-year-old female presents emergency Department chief complaint of left shoulder pain however it is more to the skin of the shoulder along the back. There is suspicion that it could possibly be herpes zoster. The patient pain medication we did give her prescription for antivirals if she develops blisters be informed her that she should start taking them. We discussed close follow- up with her doctor and return parameters. We discussed all the patient's questions. She stated that she understood the plan. Patient discharged home. Disposition Clinical Impression: Skin sensitivity Disposition: HOME SELF-CARE Condition: Stable Instructions: Shingles (ED) Additional Instructions: Please use medication as discussed. Please follow up with family doctor if symptoms have not improved over the next two days. Please return to the emergency room if your symptoms increase or worsen or for any other concerns. Take antiviral immediately if he develops any blistering. Prescriptions: Acyclovir [Zovirax] 800 mg PO QID 7 Days Hydrocodone/Acetaminophen [[place] 5-325] 1 each PO Q6HR PRN #20 tab PRN Reason: Pain Referrals: Erasmo Edward DO [Primary Care Provider] - 1-2 days Time of Disposition: 13:45
== END 2016-10-08 13:50 | disposition home or self-care (01) ==
LOC: EC 13:26
DX: M25.512 Pain in left shoulder (principal); R20.8 Other disturbances of skin sensation; Z79.899 Other long term (current) drug therapy; Z91.040 Latex allergy status; Z98.890 Other specified postprocedural states
CPT/HCPCS: 99283

== ENCOUNTER 2016-10-29 22:02 | Emergency (ER) | payer MEDICARE, OTHER ==
[2016-10-29 22:08] VITALS: RESP 18
--- NOTE | 2016-10-29 23:16 | ED ---
Chest Pain HPI - General Chief Complaint: Chest Pain Stated Complaint: Sinus/Chest Pain (Cardiac Pt) Time Seen by Provider: 10/29/16 22:42 Source: patient Mode of arrival: wheelchair Limitations: no limitations - History of Present Illness Initial Comments: This patient is 26-year-old woman with history of spina bifida, who presents here to be evaluated for substernal, burning type pain. Contra to the nurse's notes the pain has been going on for a couple of days but was mild she presents to be evaluated because it's more notable tonight and she was concerned that she may be coming down with pneumonia. She has had this a few times in the past. The patient states that the pain seemed to develop after she had had a day or 2 of congestion and a bit of coughing. The cough is nonproductive. She states feels like it's drainage from sinuses. Patient does not have dyspnea. The patient also complains of some burning perineal pain and states she has previously had this with urinary tract infection. She was concerned she may be developing UTI. The patient does perform intermittent self cath to urinate. The patient has not had fevers. She is not having any abdominal pain. No diaphoresis, vomiting or change in bowel movements. MD Complaint: chest pain -: days(s) Onset: during rest Pain Location: substernal Severity: mild Quality: other (Burning) Consistency: constant Improves With: nothing Worsens With: other (Cough) - Related Data Home Medications Medication Instructions Recorded Confirmed Metoprolol Tartrate [Lopressor] 12.5 mg PO BID 10/08/16 10/29/16 Acetaminophen [Tylenol] 325 mg PO Q4H PRN 10/29/16 10/29/16 Previous Rx's Medication Instructions Recorded Pseudoephedrine 12Hr [Sudafed 12 120 mg PO Q12H #14 tablet.er 10/30/16 Hour] Sulfamethox-Tmp 800-160Mg [Bactrim 1 each PO Q12HR #14 tab 10/30/16 Ds] Allergies Allergy/AdvReac Type Severity Reaction Status Date / Time Latex, Natural Rubber Allergy FEVER Verified 10/29/16 22:26 Review of Systems ROS Statement: Those systems with pertinent positive or pertinent negative responses have been documented in the HPI. ROS Other: All systems not noted in ROS Statement are negative. Constitutional: Denies: fever, chills ENT: Reports: congestion. Denies: ear pain, throat pain Respiratory: Reports: cough. Denies: dyspnea, wheezes, hemoptysis Cardiovascular: Reports: as per HPI, chest pain, other (Patient has history of tachycardia and takes metoprolol). Denies: orthopnea, edema Gastrointestinal: Denies: abdominal pain, nausea, vomiting, diarrhea, constipation Genitourinary: Reports: as per HPI. 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 [employer] shunt. Past Anesthesia/Blood Transfusion Reactions: No Reported Reaction Past Psychological History: No Psychological Hx Reported Additional Psychological History / Comment(s): Single has a boyfriend who helps her in the home setting. Relates her she's living right now there is no running water and she understands that is a significant problem. Currently trying to move into a new situation with her fianc so he can have a safer setting. Knows to use alcohol based hand cell cleaner. She of course does straight cath and hand hygiene is very important. no travel history. No animal exposures. No experience no current work history Smoking Status: Never smoker Past Alcohol Use History: None Reported Past Drug Use History: None Reported - Past Family History Mother Family Medical History: Cancer Additional Family Medical History / Comment(s): grandparents - lung General Exam Limitations: no limitations General appearance: alert, in no apparent distress, other (This patient is a pleasant young woman who is nontoxic and in no distress.) Head exam: Present: atraumatic, normocephalic Eye exam: Present: normal appearance ENT exam: Present: normal oropharynx Neck exam: Present: normal inspection, full ROM Respiratory exam: Present: normal lung sounds bilaterally. Absent: respiratory distress, wheezes, rales, rhonchi, stridor, chest wall tenderness Cardiovascular Exam: Present: regular rate, normal rhythm, normal heart sounds. Absent: systolic murmur, diastolic murmur, rubs, gallop GI/Abdominal exam: Present: soft. Absent: distended, tenderness, guarding, rebound, mass Extremities exam: Present: normal capillary refill. Absent: pedal edema, calf tenderness Back exam: Present: other (Healed surgical scar lumbar spine.) Neurological exam: Present: alert Skin exam: Present: warm, dry, intact, normal color. Absent: rash Course Vital Signs 10/29/16 10/30/16 22:07 00:53 Temperature 98.5 F 98.6 F Pulse Rate 74 85 Respiratory 18 18 Rate Blood Pressure 132/92 112/58 O2 Sat by Pulse 97 100 Oximetry Disposition Clinical Impression: UTI (urinary tract infection), Bronchitis Disposition: HOME SELF-CARE Condition: Good Instructions: Urinary Tract Infection in Women (ED) Prescriptions: Pseudoephedrine 12Hr [Sudafed 12 Hour] 120 mg PO Q12H #14 tablet.er Sulfamethox-Tmp 800-160Mg [Bactrim Ds] 1 each PO Q12HR #14 tab Referrals: Erasmo Edward DO [Primary Care Provider] - 1-2 days
[2016-10-29 23:50] LABS: Appearance,Urine Cloudy (Clear); Bacteria,Urine Rare /hpf; Bilirubin,Urine Negative (Negative); Glucose,Urine (UA) Negative (Negative); Ketones,Urine Negative (Negative); Leukocyte Esterase,Urine Large (Negative); Mucus,Urine Rare /hpf; Nitrite,Urine Positive (Negative); Particle Count 51423; Protein,Urine 1+ (Negative); RBC,Urine 7 /hpf (0-5); Specific Gravity,Urine 1.011 (1.001-1.035); Squamous Epithelial Cell,Urine 5 /hpf (0-4); UA Billing (MACRO vs. MICRO) MICRO; Urobilinogen,Urine <2.0 mg/dL (<2.0); WBC,Urine 160 /hpf (0-5)
--- NOTE | 2016-10-30 00:12 | XR ---
EXAM: XR Chest, 2 Views. CLINICAL HISTORY: Reason: Pain TECHNIQUE: Frontal and lateral views of the chest. COMPARISON: CXR 09/10/16 FINDINGS: Lungs: Unremarkable. No consolidation. Pleural space: Unremarkable. No pneumothorax. Heart: Unremarkable. No cardiomegaly. Mediastinum: Unremarkable. Bones/joints: S-shaped scoliosis is once again seen with fusion within the upper lumbar spine. Tubes, lines and devices: Partial visualization of the ventricular peritoneal catheter. IMPRESSION: No acute findings.
[2016-10-30] MEDS ORDERED: SULFAMETHOX-TMP 800-160MG 1 EACH TAB PO STA (01:17)
[2016-10-30 01:54] VITALS: BP 103/67; PULSE 96; TEMP 98.3
== END 2016-10-30 01:57 | disposition home or self-care (01) ==
LOC: EC 22:02
DX: N39.0 Urinary tract infection, site not specified (principal); J40 Bronchitis, not specified as acute or chronic; Z91.040 Latex allergy status; Z79.899 Other long term (current) drug therapy
CPT/HCPCS: 71020; 81001; 81025; 93005; 99285

== ENCOUNTER 2016-12-20 17:00 | Emergency (ER) | payer MEDICARE, OTHER ==
[2016-12-20] MEDS ORDERED: ONDANSETRON 4 MG/2 ML VIAL IVP STA (18:17)
[2016-12-20] MEDS ORDERED: HYDROmorphone 1 MG/ML 1 ML SYRINGE IVP STA ×2 (18:17→21:29)
[2016-12-20] MEDS ORDERED: SODIUM CHLORIDE 0.9% 1,000 ML IV STA (18:17)
--- NOTE | 2016-12-20 18:18 | ED ---
Abdominal Pain HPI - General Chief Complaint: Abdominal Pain Stated Complaint: Abd Pain, lower back pain Time Seen by Provider: 12/20/16 17:54 Source: patient, RN notes reviewed Mode of arrival: wheelchair Limitations: no limitations - History of Present Illness Initial Comments: 26-year-old female presents to the emergency department with a chief complaint of concern for UTI. Patient suffers from spina bifida and she gets frequent UTIs. Patient states she started noticing some burning today so she was concerned. Patient has CHRONIC hip pain and states that her pain is WELL. Patient states had nausea this is more abdominal pain. Patient denies any fever or chills. Patient denies any cough cold like symptoms. Patient was concerned due to her continued symptoms so she thought that she should be evaluated.Patient denies any recent fever, chills, shortness of breath, chest pain, back pain, vomiting, numbness or tingling, hematuria, constipation or diarrhea, headaches or visual changes, or any other current symptoms. - Related Data Home Medications Medication Instructions Recorded Confirmed Metoprolol Tartrate [Lopressor] 12.5 mg PO BID 12/20/16 12/20/16 Previous Rx's Medication Instructions Recorded Cephalexin [Keflex] 500 mg PO Q6HR #40 cap 12/20/16 Allergies Allergy/AdvReac Type Severity Reaction Status Date / Time latex Allergy Fever from Verified 12/20/16 18:27 cath Review of Systems ROS Statement: Those systems with pertinent positive or pertinent negative responses have been documented in the HPI. ROS Other: All systems not noted in ROS Statement are negative. 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 [employer] shunt. Past Anesthesia/Blood Transfusion Reactions: No Reported Reaction Past Psychological History: No Psychological Hx Reported Additional Psychological History / Comment(s): Single has a boyfriend who helps her in the home setting. Relates her she's living right now there is no running water and she understands that is a significant problem. Currently trying to move into a new situation with her fianc so he can have a safer setting. Knows to use alcohol based hand cleaners. She of course does straight cath and hand hygiene is very important. no travel history. No animal exposures. No experience no current work history Smoking Status: Never smoker Past Alcohol Use History: None Reported Past Drug Use History: None Reported - Past Family History Mother Family Medical History: Cancer Additional Family Medical History / Comment(s): grandparents - lung General Exam Limitations: no limitations General appearance: alert, in no apparent distress ENT exam: Present: normal exam, mucous membranes moist Neck exam: Present: normal inspection. Absent: tenderness, meningismus, lymphadenopathy Respiratory exam: Present: normal lung sounds bilaterally. Absent: respiratory distress, wheezes, rales, rhonchi, stridor Cardiovascular Exam: Present: regular rate, normal rhythm, normal heart sounds. Absent: systolic murmur, diastolic murmur, rubs, gallop, clicks GI/Abdominal exam: Present: soft, normal bowel sounds. Absent: distended, tenderness, guarding, rebound, rigid Neurological exam: Present: alert, oriented X3 Psychiatric exam: Present: normal affect, normal mood Skin exam: Present: warm, dry, intact, normal color. Absent: rash Course Vital Signs 12/20/16 17:23 Temperature 97.4 F L Pulse Rate 118 H Respiratory 16 Rate Blood Pressure 115/74 O2 Sat by Pulse 100 Oximetry Medical Decision Making - Medical Decision Making 26-year-old female presents for lower abdominal pain and burning with urination. This time patient does appear to have UTI. We'll start patient on Keflex for home. We discussed Motrin Tylenol for pain control. Discussed follow-up return parameters. Patient stated that she understood all questions were answered. She'll discharge. - Lab Data Result diagrams: 12/20/16 19:09 12/20/16 19:09 Lab Results 12/20/16 12/20/16 12/20/16 Range/Units 19:09 19:09 19:09 WBC 9.8 (3.8-10.6) k/uL RBC 4.64 (3.80-5.40) m/uL Hgb 11.8 (11.4-16.0) gm/dL Hct 37.6 (34.0-46.0) % MCV 81.2 (80.0-100.0) fL MCH 25.4 (25.0-35.0) pg MCHC 31.3 (31.0-37.0) g/dL RDW 14.3 (11.5-15.5) % Plt Count 382 (150-450) k/uL Neutrophils % 54 % Lymphocytes % 38 % Monocytes % 5 % Eosinophils % 0 % Basophils % 1 % Neutrophils # 5.3 (1.3-7.7) k/uL Lymphocytes # 3.7 (1.0-4.8) k/uL Monocytes # 0.5 (0-1.0) k/uL Eosinophils # 0.0 (0-0.7) k/uL Basophils # 0.1 (0-0.2) k/uL Hypochromasia Slight Sodium 143 (137-145) mmol/L Potassium 4.0 (3.5-5.1) mmol/L Chloride 105 (98-107) mmol/L Carbon Dioxide 26 (22-30) mmol/L Anion Gap 12 mmol/L BUN 18 H (7-17) mg/dL Creatinine 0.70 (0.52-1.04) mg/dL Est GFR (MDRD) Af Amer >60 (>60 ml/min/1.73 sqM) Est GFR (MDRD) Non-Af >60 (>60 ml/min/1.73 sqM) Glucose 93 (74-99) mg/dL Calcium 10.1 (8.4-10.2) mg/dL Total Bilirubin 0.4 (0.2-1.3) mg/dL AST 21 (14-36) U/L ALT 25 (9-52) U/L Alkaline Phosphatase 72 (38-126) U/L Total Protein 7.8 (6.3-8.2) g/dL Albumin 4.6 (3.5-5.0) g/dL Urine Color Yellow Urine Appearance Cloudy H (Clear) Urine pH 5.5 (5.0-8.0) Ur Specific [place] 1.015 (1.001-1.035) Urine Protein Trace H (Negative) Urine Glucose (UA) Negative (Negative) Urine Ketones Negative (Negative) Urine Blood Negative (Negative) Urine Nitrite Negative (Negative) Urine Bilirubin Negative (Negative) Urine Urobilinogen <2.0 (<2.0) mg/dL Ur Leukocyte Esterase Moderate H (Negative) Urine RBC 6 H (0-5) /hpf Urine WBC 55 H (0-5) /hpf Ur Squamous Epith Cells 1 (0-4) /hpf Urine Bacteria Moderate H (None) /hpf Urine Mucus Rare H (None) /hpf Disposition Clinical Impression: UTI (urinary tract infection) Disposition: TRANSFER TO PSYCH HOSP/UNIT Condition: Stable Instructions: Urinary Tract Infection in Women (ED) Additional Instructions: Please use medication as discussed. Please follow up with family doctor if symptoms have not improved over the next two days. Please return to the emergency room if your symptoms increase or worsen or for any other concerns. Prescriptions: Cephalexin [Keflex] 500 mg PO Q6HR #40 cap Referrals: Erasmo Edward DO [Primary Care Provider] - 1-2 days Time of Disposition: 19:59
[2016-12-20 19:22] LABS: Basophils # (A) 0.1 k/uL (0-0.2); Basophils % (A) 1 %; CH 25.2; CHCM 31.1; Eosinophils % (A) 0 %; HCT 37.6 % (34.0-46.0); HDW 2.58; HGB 11.8 gm/dL (11.4-16.0); Hypochromasia Slight; Luc # (Auto) 0.22; Luc % (Auto) 2; Lymphocytes # (A) 3.7 k/uL (1.0-4.8); Lymphocytes % (A) 38 %; MCH 25.4 pg (25.0-35.0); MCHC 31.3 g/dL (31.0-37.0); MCV 81.2 fL (80.0-100.0); Mean Platelet Volume 6.5; Monocytes # (A) 0.5 k/uL (0-1.0); Monocytes % (A) 5 %; Neutrophils # (A) 5.3 k/uL (1.3-7.7); Neutrophils % (A) 54 %; RBC 4.64 m/uL (3.80-5.40); RDW 14.3 % (11.5-15.5); WBC 9.8 k/uL (3.8-10.6); WBC (Perox) 10.36
[2016-12-20 19:25] LABS: Appearance,Urine Cloudy (Clear); Bacteria,Urine Moderate /hpf; Bilirubin,Urine Negative (Negative); Glucose,Urine (UA) Negative (Negative); Ketones,Urine Negative (Negative); Leukocyte Esterase,Urine Moderate (Negative); Mucus,Urine Rare /hpf; Nitrite,Urine Negative (Negative); PH, Urine 5.5 (5.0-8.0); Particle Count 5272; Protein,Urine Trace (Negative); RBC,Urine 6 /hpf (0-5); Specific Gravity,Urine 1.015 (1.001-1.035); Squamous Epithelial Cell,Urine 1 /hpf (0-4); UA Billing (MACRO vs. MICRO) MICRO; Urobilinogen,Urine <2.0 mg/dL (<2.0); WBC,Urine 55 /hpf (0-5)
[2016-12-20 19:34] LABS: ALT 25 U/L (9-52); AST 21 U/L (14-36); Alkaline Phosphatase 72 U/L (38-126); Anion Gap 12 mmol/L; Blood Urea Nitrogen 18 mg/dL (7-17); Calcium 10.1 mg/dL (8.4-10.2); Carbon Dioxide 26 mmol/L (22-30); Chloride 105 mmol/L (98-107); Glucose 93 mg/dL (74-99); Non-African American GFR(MDRD) >60 (>60 ml/min/1.73 sqM); Sodium 143 mmol/L (137-145); Total Bilirubin 0.4 mg/dL (0.2-1.3); Total Protein 7.8 g/dL (6.3-8.2)
[2016-12-20] MEDS ORDERED: METOCLOPRAMIDE 5 MG/ML 2 ML VIAL IVP STA (21:29)
[2016-12-20 21:55] VITALS: BP 100/56; PULSE 104; RESP 18; TEMP 97.9
== END 2016-12-20 21:55 ==
LOC: EC 17:00
DX: N39.0 Urinary tract infection, site not specified (principal); R11.0 Nausea; Z79.899 Other long term (current) drug therapy; Z91.040 Latex allergy status; Z98.890 Other specified postprocedural states
CPT/HCPCS: 99285; 96365; 96375 ×4; 96361 ×2; 36415; 80053; 83605; 85025; 81001; 87040; 87086; J2765; J2405; J0696; J1170

== ENCOUNTER 2016-12-28 15:27 | Emergency (ER) | payer MEDICARE, OTHER ==
[2016-12-28] MEDS ORDERED: ACETAMINOPHEN TAB 325 MG TAB PO STA (15:59)
[2016-12-28] MEDS ORDERED: SODIUM CHLORIDE 0.9% 500 ML IV STA (15:59)
[2016-12-28 16:18] LABS: Basophils % (A) 0 %; CH 25.2; CHCM 31.3; Eosinophils # (A) 0.1 k/uL (0-0.7); Eosinophils % (A) 1 %; HCT 36.6 % (34.0-46.0); HGB 11.6 gm/dL (11.4-16.0); Hypochromasia Slight; Luc # (Auto) 0.11; Luc % (Auto) 1; Lymphocytes # (A) 2.9 k/uL (1.0-4.8); Lymphocytes % (A) 32 %; MCH 25.4 pg (25.0-35.0); MCHC 31.6 g/dL (31.0-37.0); MCV 80.5 fL (80.0-100.0); Mean Platelet Volume 6.9; Monocytes # (A) 0.3 k/uL (0-1.0); Monocytes % (A) 4 %; Neutrophils # (A) 5.8 k/uL (1.3-7.7); Neutrophils % (A) 63 %; RBC 4.55 m/uL (3.80-5.40); RDW 14.2 % (11.5-15.5); WBC 9.2 k/uL (3.8-10.6); WBC (Perox) 9.81
[2016-12-28] MEDS ORDERED: ONDANSETRON 4 MG/2 ML VIAL IVP STA (16:24)
[2016-12-28 16:33] LABS: ALT 30 U/L (9-52); AST 19 U/L (14-36); Alkaline Phosphatase 61 U/L (38-126); Anion Gap 14 mmol/L; Blood Urea Nitrogen 16 mg/dL (7-17); Carbon Dioxide 19 mmol/L (22-30); Chloride 107 mmol/L (98-107); Glucose 107 mg/dL (74-99); Non-African American GFR(MDRD) >60 (>60 ml/min/1.73 sqM); Potassium 4.3 mmol/L (3.5-5.1); Sodium 140 mmol/L (137-145); Total Bilirubin 0.3 mg/dL (0.2-1.3); Total Protein 7.8 g/dL (6.3-8.2)
[2016-12-28 16:39] LABS: Appearance,Urine Cloudy (Clear); Bacteria,Urine Rare /hpf; Bilirubin,Urine Negative (Negative); Glucose,Urine (UA) Negative (Negative); Ketones,Urine Negative (Negative); Leukocyte Esterase,Urine Trace (Negative); Mucus,Urine Rare /hpf; Nitrite,Urine Negative (Negative); Particle Count 4644; Protein,Urine 1+ (Negative); Specific Gravity,Urine 1.014 (1.001-1.035); Squamous Epithelial Cell,Urine 2 /hpf (0-4); UA Billing (MACRO vs. MICRO) MICRO; Urobilinogen,Urine <2.0 mg/dL (<2.0); WBC,Urine 60 /hpf (0-5)
--- NOTE | 2016-12-28 17:28 | XR ---
EXAMINATION TYPE: XR chest 1V portable DATE OF EXAM: 12/28/2016 COMPARISON: Chest x-ray October 29, 2016. HISTORY: Fever. TECHNIQUE: Single AP portable frontal upright view of the chest is obtained. FINDINGS: Low lung volumes are redemonstrated. There is no focal air space opacity, pleural effusion, or pneumothorax seen. The cardiac silhouette size is within normal limits. Underlying scoliosis red emonstrated. Surgical change upper lumbar spine is again seen. Overlying right-sided HEMATOLOGY NURSE shunt cathete r redemonstrated. IMPRESSION: No suspicious acute pulmonary process. No significant change from prior.
[2016-12-28] MEDS ORDERED: LEVOFLOXACIN 750 MG TAB PO STA (17:30)
[2016-12-28] MEDS ORDERED: HYDROcodone/APAP 5-325MG 1 EACH TAB PO STA (17:33)
[2016-12-28 17:55] VITALS: RESP 16
--- NOTE | 2016-12-28 18:14 | ED ---
Abdominal Pain HPI - General Chief Complaint: Abdominal Pain Stated Complaint: Fever 102/Poss bladder infection Time Seen by Provider: 12/28/16 15:49 Source: patient Mode of arrival: wheelchair Limitations: physical limitation - History of Present Illness Initial Comments: This patient is a 26-year-old woman with history of spina bifida, who presents with complaint that she feels like her urinary tract infection is not improving. She states she was diagnosed with one and has been taking medication. She does continue to have some suprapubic discomfort and also a little bit of low back pain. She is denying change in bowel movements, nausea or vomiting. She does perform intermittent catheterization for urination. She notes that her urine smells different than it usually does MD Complaint: abdominal pain, flank pain -: days(s) Location: suprapubic, bilateral flank Radiation: none Migration to: no migration Severity: moderate Quality: fullness, burning Consistency: constant Improves With: nothing Worsens With: nothing Associated Symptoms: denies other symptoms - Related Data Home Medications Medication Instructions Recorded Confirmed Metoprolol Tartrate [Lopressor] 12.5 mg PO BID 01/02/17 01/02/17 Previous Rx's Medication Instructions Recorded Ciprofloxacin HCl [Cipro] 500 mg PO Q12HR #14 tablet 12/28/16 Sucralfate [Carafate] 1 gm PO BID #20 tablet 01/03/17 Allergies Allergy/AdvReac Type Severity Reaction Status Date / Time latex Allergy Fever from Verified 01/02/17 19:58 cath Review of Systems ROS Statement: Those systems with pertinent positive or pertinent negative responses have been documented in the HPI. ROS Other: All systems not noted in ROS Statement are negative. Constitutional: Denies: chills, weakness Respiratory: Denies: cough, dyspnea Cardiovascular: Denies: chest pain, palpitations, edema Gastrointestinal: Reports: as per HPI, abdominal pain. Denies: vomiting, diarrhea, constipation Genitourinary: Reports: as per HPI, other (Change in odor and cloudiness). 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 [employer] shunt. Past Anesthesia/Blood Transfusion Reactions: No Reported Reaction Past Psychological History: No Psychological Hx Reported Additional Psychological History / Comment(s): Single has a boyfriend who helps her in the home setting. Relates her she's living right now there is no running water and she understands that is a significant problem. Currently trying to move into a new situation with her fianc so he can have a safer setting. Knows to use alcohol based hand duct cleaner. She of course does straight cath and hand hygiene is very important. no travel history. No animal exposures. No experience no current work history Smoking Status: Never smoker Past Alcohol Use History: None Reported Past Drug Use History: None Reported - Past Family History Mother Family Medical History: Cancer Additional Family Medical History / Comment(s): grandparents - lung General Exam Limitations: physical limitation General appearance: alert, in no apparent distress Head exam: Present: atraumatic, normocephalic Eye exam: Present: normal appearance. Absent: scleral icterus, conjunctival injection Respiratory exam: Present: normal lung sounds bilaterally. Absent: respiratory distress, wheezes, rales, rhonchi, stridor Cardiovascular Exam: Present: regular rate, tachycardia, normal heart sounds. Absent: systolic murmur, diastolic murmur, rubs, gallop GI/Abdominal exam: Present: soft. Absent: distended, tenderness, guarding, rebound, mass Extremities exam: Present: normal inspection, normal capillary refill. Absent: pedal edema, calf tenderness Back exam: Absent: CVA tenderness (R), CVA tenderness (L) Neurological exam: Present: alert Skin exam: Present: warm, dry, intact, normal color. Absent: rash Course Vital Signs 12/28/16 12/28/16 12/28/16 15:30 16:40 17:54 Temperature 99.4 F 98.4 F 97.0 F L Pulse Rate 123 H 89 Respiratory 20 16 Rate Blood Pressure 134/84 115/66 O2 Sat by Pulse 99 100 Oximetry 12/28/16 18:41 Temperature 98.5 F Pulse Rate 88 Respiratory 16 Rate Blood Pressure 111/68 O2 Sat by Pulse 100 Oximetry Medical Decision Making - Medical Decision Making Patient is a 26-year-old woman with urinary tract infection that appears to not be responding to outpatient antibiotics. We have sent urine for culture and change the antibiotic coverage. I did offer to admit the patient but she is wanting to go home. Patient is feeling much better following the medication and fluids. We discussed additional signs and symptoms requiring her to immediately come back for further care, and she is going to have close follow- up with her physician to ensure that the culture and sensitivity shows good response. - Lab Data Result diagrams: 12/28/16 15:55 12/28/16 15:55 Lab Results 12/28/16 12/28/16 12/28/16 Range/Units 15:55 15:55 15:55 WBC 9.2 (3.8-10.6) k/uL RBC 4.55 (3.80-5.40) m/uL Hgb 11.6 (11.4-16.0) gm/dL Hct 36.6 (34.0-46.0) % MCV 80.5 (80.0-100.0) fL MCH 25.4 (25.0-35.0) pg MCHC 31.6 (31.0-37.0) g/dL RDW 14.2 (11.5-15.5) % Plt Count 371 (150-450) k/uL Neutrophils % 63 % Lymphocytes % 32 % Monocytes % 4 % Eosinophils % 1 % Basophils % 0 % Neutrophils # 5.8 (1.3-7.7) k/uL Lymphocytes # 2.9 (1.0-4.8) k/uL Monocytes # 0.3 (0-1.0) k/uL Eosinophils # 0.1 (0-0.7) k/uL Basophils # 0.0 (0-0.2) k/uL Hypochromasia Slight Sodium 140 (137-145) mmol/L Potassium 4.3 (3.5-5.1) mmol/L Chloride 107 (98-107) mmol/L Carbon Dioxide 19 L (22-30) mmol/L Anion Gap 14 mmol/L BUN 16 (7-17) mg/dL Creatinine 0.60 (0.52-1.04) mg/dL Est GFR (MDRD) Af Amer >60 (>60 ml/min/1.73 sqM) Est GFR (MDRD) Non-Af >60 (>60 ml/min/1.73 sqM) Glucose 107 H (74-99) mg/dL Plasma Lactic Acid [place] 1.3 (0.7-2.0) mmol/L Calcium 10.0 (8.4-10.2) mg/dL Total Bilirubin 0.3 (0.2-1.3) mg/dL AST 19 (14-36) U/L ALT 30 (9-52) U/L Alkaline Phosphatase 61 (38-126) U/L Total Protein 7.8 (6.3-8.2) g/dL Albumin 4.5 (3.5-5.0) g/dL Urine Color Urine Appearance (Clear) Urine pH (5.0-8.0) Ur Specific [place] (1.001-1.035) Urine Protein (Negative) Urine Glucose (UA) (Negative) Urine Ketones (Negative) Urine Blood (Negative) Urine Nitrite (Negative) Urine Bilirubin (Negative) Urine Urobilinogen (<2.0) mg/dL Ur Leukocyte Esterase (Negative) Urine WBC (0-5) /hpf Ur Squamous Epith Cells (0-4) /hpf Urine Bacteria (None) /hpf Urine Mucus (None) /hpf 12/28/16 Range/Units 16:15 WBC (3.8-10.6) k/uL RBC (3.80-5.40) m/uL Hgb (11.4-16.0) gm/dL Hct (34.0-46.0) % MCV (80.0-100.0) fL MCH (25.0-35.0) pg MCHC (31.0-37.0) g/dL RDW (11.5-15.5) % Plt Count (150-450) k/uL Neutrophils % % Lymphocytes % % Monocytes % % Eosinophils % % Basophils % % Neutrophils # (1.3-7.7) k/uL Lymphocytes # (1.0-4.8) k/uL Monocytes # (0-1.0) k/uL Eosinophils # (0-0.7) k/uL Basophils # (0-0.2) k/uL Hypochromasia Sodium (137-145) mmol/L Potassium (3.5-5.1) mmol/L Chloride (98-107) mmol/L Carbon Dioxide (22-30) mmol/L Anion Gap mmol/L BUN (7-17) mg/dL Creatinine (0.52-1.04) mg/dL Est GFR (MDRD) Af Amer (>60 ml/min/1.73 sqM) Est GFR (MDRD) Non-Af (>60 ml/min/1.73 sqM) Glucose (74-99) mg/dL Plasma Lactic Acid [place] (0.7-2.0) mmol/L Calcium (8.4-10.2) mg/dL Total Bilirubin (0.2-1.3) mg/dL AST (14-36) U/L ALT (9-52) U/L Alkaline Phosphatase (38-126) U/L Total Protein (6.3-8.2) g/dL Albumin (3.5-5.0) g/dL Urine Color Light Yellow Urine Appearance Cloudy H (Clear) Urine pH 6.0 (5.0-8.0) Ur Specific [place] 1.014 (1.001-1.035) Urine Protein 1+ H (Negative) Urine Glucose (UA) Negative (Negative) Urine Ketones Negative (Negative) Urine Blood Negative (Negative) Urine Nitrite Negative (Negative) Urine Bilirubin Negative (Negative) Urine Urobilinogen <2.0 (<2.0) mg/dL Ur Leukocyte Esterase Trace H (Negative) Urine WBC 60 H (0-5) /hpf Ur Squamous Epith Cells 2 (0-4) /hpf Urine Bacteria Rare H (None) /hpf Urine Mucus Rare H (None) /hpf Disposition Clinical Impression: UTI (urinary tract infection) Disposition: HOME SELF-CARE Condition: Fair Instructions: Urinary Tract Infection in Women (ED) Prescriptions: Ciprofloxacin HCl [Cipro] 500 mg PO Q12HR #14 tablet Referrals: Erasmo Edward DO [Primary Care Provider] - 1-2 days
[2016-12-28] MEDS ORDERED: MORPHINE SULFATE 4 MG/ML SYRINGE IV STA (18:16)
[2016-12-28 18:42] VITALS: BP 111/68; PULSE 88; TEMP 98.5
--- NOTE | 2016-12-31 03:47 | CDI ---
Documentation Clarification OP Dear Paresh Mar MD, Please do addendum to ED report for HPI and physical exam. Thank you, Kalpana Ayala Side Door Worker If you have any question, Please contact manager business management at [phone] [facility]
== END 2016-12-28 18:42 | disposition home or self-care (01) ==
LOC: EC 15:27
DX: N39.0 Urinary tract infection, site not specified (principal); Z79.899 Other long term (current) drug therapy; Z91.040 Latex allergy status; Z87.442 Personal history of urinary calculi; Z98.890 Other specified postprocedural states
CPT/HCPCS: 99284; 96374; 96375; 96361 ×2; 36415; 80053; 83605; 85025; 81001; 87040; 87086; 71010; J2270; J2405

== ENCOUNTER 2017-01-02 18:16 | Emergency (ER) | payer MEDICARE, OTHER ==
[2017-01-02] MEDS ORDERED: HYDROmorphone 1 MG/ML 1 ML SYRINGE IVP STA (19:10)
[2017-01-02] MEDS ORDERED: ONDANSETRON 4 MG/2 ML VIAL IVP STA (19:10)
[2017-01-02] MEDS ORDERED: SODIUM CHLORIDE 0.9% 1,000 ML IV STA (19:10)
--- NOTE | 2017-01-02 19:21 | ED ---
Abdominal Pain HPI - General Chief Complaint: Abdominal Pain Stated Complaint: ABDOMINAL PAIN Time Seen by Provider: 01/02/17 18:51 Source: patient, RN notes reviewed, old records reviewed Mode of arrival: wheelchair Limitations: no limitations - History of Present Illness Initial Comments: This is a 26-year-old female with chief complaint of increased epigastric and right upper quadrant abdominal pain for the past few days. Patient poor she was seen multiple times emergency department for the past week and received blood work and was told that she had a urinary tract infection. Patient reports she was taking Cipro and is completed taking it but is still having some pain. She does complain of some mild dysuria. Patient denies any distress discharge or concern for sexually transmitted infection. Patient states that she was followed with her primary care provider Dr. Edward who recommends that she has her gallbladder evaluated. Patient states that she has no fever or chills. She reports that she will double over in pain. A couple episodes of vomiting and feels nauseated. Denies any changes in bowel movements. Patient has a history of spina bifida, kidney stones and multiple urinary tract infections that she self caths herself. - Related Data Home Medications Medication Instructions Recorded Confirmed Metoprolol Tartrate [Lopressor] 12.5 mg PO BID 01/02/17 01/02/17 Previous Rx's Medication Instructions Recorded Ciprofloxacin HCl [Cipro] 500 mg PO Q12HR #14 tablet 12/28/16 Sucralfate [Carafate] 1 gm PO BID #20 tablet 01/03/17 Allergies Allergy/AdvReac Type Severity Reaction Status Date / Time latex Allergy Fever from Verified 01/02/17 19:58 cath Review of Systems ROS Statement: Those systems with pertinent positive or pertinent negative responses have been documented in the HPI. ROS Other: All systems not noted in ROS Statement are negative. 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 Past Anesthesia/Blood Transfusion Reactions: No Reported Reaction Past Psychological History: No Psychological Hx Reported Smoking Status: Never smoker Past Alcohol Use History: None Reported Past Drug Use History: None Reported - Past Family History Mother Family Medical History: Cancer Additional Family Medical History / Comment(s): grandparents - lung General Exam - General Exam Comments Initial Comments: Physical pleasant 26-year-old female. Patient has history of spina bifida. Patient does not appear to be in any acute distress. Limitations: no limitations General appearance: alert, in no apparent distress Head exam: Present: atraumatic, normocephalic, normal inspection Eye exam: Present: normal appearance, PERRL, EOMI. Absent: scleral icterus, conjunctival injection, periorbital swelling ENT exam: Present: normal exam, mucous membranes moist Neck exam: Present: normal inspection. Absent: tenderness, meningismus, lymphadenopathy Respiratory exam: Present: normal lung sounds bilaterally. Absent: respiratory distress, wheezes, rales, rhonchi, stridor Cardiovascular Exam: Present: regular rate, normal rhythm, normal heart sounds. Absent: systolic murmur, diastolic murmur, rubs, gallop, clicks GI/Abdominal exam: Present: soft, tenderness (Some right upper quadrant tenderness.), normal bowel sounds. Absent: distended, guarding, rebound, rigid Extremities exam: Present: normal inspection, full ROM, normal capillary refill. Absent: tenderness, pedal edema, joint swelling, calf tenderness Back exam: Present: normal inspection Neurological exam: Present: alert, oriented X3, CN II-XII intact Psychiatric exam: Present: normal affect, normal mood Course Vital Signs 01/02/17 01/02/17 01/02/17 18:37 20:34 21:11 Temperature 98.3 F 99.1 F Pulse Rate 108 H 108 H Respiratory 20 Rate Blood Pressure 124/74 120/75 O2 Sat by Pulse 99 99 Oximetry 01/02/17 01/03/17 22:30 00:06 Temperature 98.1 F Pulse Rate 110 H 105 H Respiratory 18 18 Rate Blood Pressure 125/78 115/85 O2 Sat by Pulse 100 98 Oximetry Medical Decision Making - Medical Decision Making This is a 26-year-old female with chief complaint of increased epigastric and right upper quadrant abdominal pain for the past few days. Patient poor she was seen multiple times emergency department for the past week and received blood work and was told that she had a urinary tract infection. Patient reports she was taking Cipro and is completed taking it but is still having some pain. She does complain of some mild dysuria. Patient denies any distress discharge or concern for sexually transmitted infection. Patient states that she was followed with her primary care provider Dr. Edward who recommends that she has her gallbladder evaluated. Patient states that she has no fever or chills. She reports that she will double over in pain. A couple episodes of vomiting and feels nauseated. Patient's lab work was reviewed negative for any acute process. Urine does not show any signs of significant infection. Patient was tender in the epigastric region, right upper quadrant ultrasound was ordered. Difficult to totally visualize the gallbladder there is evidence of free fluid. Patient was informed of the results. Given the free fluid noted in the abdomen CT abdomen and pelvis was ordered. CT abdomen and pelvis shows a 26 x 7 x 7 cm cystic pelvic mass which could be urinary or ovarian origin. I did compare this finding with previous computed tomography scan in 04/14/2016 and is unchanged. On further review patient's chart there is no mention of this finding in the old CAT scan, or any of her previous visits. Patient reports that many years ago she was told she had an ovarian cyst that a surgeon did not want to perform surgery on due to risks of her scar tissues. Patient CT recommendation was considering correlation with a nonemergent CT urogram. Discussed this case with Dr. Iniguez. He states that the pain could likely be related to a gastritis. Patient will be given a GI cocktail and Pepcid. Patient will be reevaluated. Patient reports some improvement after GI cocktail and Pepcid. Given patient's onset of pain seems to be more acute is likely related to gastritis. We emphasized the importance of following up with the urologist in regards to the large cystic abdominal mass. Patient agrees. Patient will agrees to follow-up with her urologist and a primary care provider. Return parameters were discussed. - Lab Data Result diagrams: 01/02/17 19:45 01/02/17 19:45 Lab Results 01/02/17 01/02/17 01/02/17 Range/Units 19:45 19:45 19:54 WBC 8.7 (3.8-10.6) k/uL RBC 4.43 (3.80-5.40) m/uL Hgb 11.5 (11.4-16.0) gm/dL Hct 35.0 (34.0-46.0) % MCV 79.2 L (80.0-100.0) fL MCH 26.0 (25.0-35.0) pg MCHC 32.8 (31.0-37.0) g/dL RDW 14.5 (11.5-15.5) % Plt Count 358 (150-450) k/uL Neutrophils % 60 % Lymphocytes % 32 % Monocytes % 5 % Eosinophils % 0 % Basophils % 1 % Neutrophils # 5.2 (1.3-7.7) k/uL Lymphocytes # 2.8 (1.0-4.8) k/uL Monocytes # 0.5 (0-1.0) k/uL Eosinophils # 0.0 (0-0.7) k/uL Basophils # 0.1 (0-0.2) k/uL Sodium 141 (137-145) mmol/L Potassium 4.3 (3.5-5.1) mmol/L Chloride 108 H (98-107) mmol/L Carbon Dioxide 20 L (22-30) mmol/L Anion Gap 13 mmol/L BUN 20 H (7-17) mg/dL Creatinine 0.69 (0.52-1.04) mg/dL Est GFR (MDRD) Af Amer >60 (>60 ml/min/1.73 sqM) Est GFR (MDRD) Non-Af >60 (>60 ml/min/1.73 sqM) Glucose 92 (74-99) mg/dL Calcium 9.9 (8.4-10.2) mg/dL Total Bilirubin 0.4 (0.2-1.3) mg/dL AST 17 (14-36) U/L ALT 23 (9-52) U/L Alkaline Phosphatase 64 (38-126) U/L Total Protein 7.8 (6.3-8.2) g/dL Albumin 4.5 (3.5-5.0) g/dL Amylase 71 (30-110) U/L Lipase 134 (23-300) U/L Urine Color Yellow Urine Appearance Cloudy H (Clear) Urine pH 5.5 (5.0-8.0) Ur Specific [place] 1.016 (1.001-1.035) Urine Protein Trace H (Negative) Urine Glucose (UA) Negative (Negative) Urine Ketones Negative (Negative) Urine Blood Negative (Negative) Urine Nitrite Negative (Negative) Urine Bilirubin Negative (Negative) Urine Urobilinogen <2.0 (<2.0) mg/dL Ur Leukocyte Esterase Negative (Negative) Urine RBC 5 (0-5) /hpf Urine WBC 15 H (0-5) /hpf Ur Squamous Epith Cells 1 (0-4) /hpf Urine Bacteria Rare H (None) /hpf - Radiology Data Radiology results: report reviewed CT abdomen and pelvis shows a 26 x 7 by centimeters cystic pelvic mass which could be ovarian or urinary in origin. Similar appearance to previous CT. Considering correlation for nonemergent CT urogram. Disposition Clinical Impression: Abdominal cyst, Gastritis Disposition: HOME SELF-CARE Condition: Good Instructions: Gastritis (ED) Additional Instructions: Patient must follow-up with Dr. Ordaz for the cystic mass. Take the Carafate as prescribed. Follow-up with your primary care provider as well. Return the emergency department if any alarming signs or symptoms occur. Prescriptions: Sucralfate [Carafate] 1 gm PO BID #20 tablet Referrals: Erasmo Edward DO [Primary Care Provider] - 1-2 days Time of Disposition: 00:04
[2017-01-02 20:02] LABS: Basophils # (A) 0.1 k/uL (0-0.2); Basophils % (A) 1 %; CH 25.4; CHCM 32.2; Eosinophils % (A) 0 %; HDW 2.68; HGB 11.5 gm/dL (11.4-16.0); Luc # (Auto) 0.14; Luc % (Auto) 2; Lymphocytes # (A) 2.8 k/uL (1.0-4.8); Lymphocytes % (A) 32 %; MCHC 32.8 g/dL (31.0-37.0); MCV 79.2 fL (80.0-100.0); Mean Platelet Volume 6.6; Monocytes # (A) 0.5 k/uL (0-1.0); Monocytes % (A) 5 %; Neutrophils # (A) 5.2 k/uL (1.3-7.7); Neutrophils % (A) 60 %; RBC 4.43 m/uL (3.80-5.40); RDW 14.5 % (11.5-15.5); WBC 8.7 k/uL (3.8-10.6); WBC (Perox) 8.68
[2017-01-02 20:13] LABS: ALT 23 U/L (9-52); AST 17 U/L (14-36); Alkaline Phosphatase 64 U/L (38-126); Amylase 71 U/L (30-110); Anion Gap 13 mmol/L; Blood Urea Nitrogen 20 mg/dL (7-17); Calcium 9.9 mg/dL (8.4-10.2); Carbon Dioxide 20 mmol/L (22-30); Chloride 108 mmol/L (98-107); Glucose 92 mg/dL (74-99); Non-African American GFR(MDRD) >60 (>60 ml/min/1.73 sqM); Sodium 141 mmol/L (137-145); Total Bilirubin 0.4 mg/dL (0.2-1.3); Total Protein 7.8 g/dL (6.3-8.2)
[2017-01-02 20:21] LABS: Appearance,Urine Cloudy (Clear); Bacteria,Urine Rare /hpf; Bilirubin,Urine Negative (Negative); Glucose,Urine (UA) Negative (Negative); Ketones,Urine Negative (Negative); Leukocyte Esterase,Urine Negative (Negative); Nitrite,Urine Negative (Negative); PH, Urine 5.5 (5.0-8.0); Particle Count 4828; Protein,Urine Trace (Negative); RBC,Urine 5 /hpf (0-5); Specific Gravity,Urine 1.016 (1.001-1.035); Squamous Epithelial Cell,Urine 1 /hpf (0-4); UA Billing (MACRO vs. MICRO) MICRO; Urobilinogen,Urine <2.0 mg/dL (<2.0); WBC,Urine 15 /hpf (0-5)
[2017-01-02 20:21] LABS: Potassium 4.3 mmol/L (3.5-5.1)
--- NOTE | 2017-01-02 21:15 | XR ---
Abdomen HISTORY: Abdominal pain Frontal view of the abdomen on 2 images correlated to prior abdomen 12/08/2015 The pelvis shows a stable appearance. Patient is markedly rotated to the scoliosis. Chronic hip dislo cation present on the left. Retained fecal debris present throughout the distribution of the colon. P ostop changes are noted to the lower thoracic spine. Shunt tubing thought present in the right upper quadrant as on prior. No pneumoperitoneum. IMPRESSION: Correlate for fecal stasis.
--- NOTE | 2017-01-02 21:19 | US ---
EXAMINATION TYPE: US gallbladder DATE OF EXAM: 01/02/2017 COMPARISON: CT abdomen pelvis 04/14/2016 CLINICAL HISTORY: Abd Pain, nausea. Extremely difficult and limited exam due to overlying bowel gas. Patient is a paraplegic. History of bladder surgery as a child EXAM MEASUREMENTS: Liver Length: 11.7 cm Gallbladder Wall: 0.2 cm CBD: 0.3 cm Right Kidney: Unable to measure with certainty Pancreas: Obscured by bowel gas Liver: Limited visualization. Echotexture somewhat coarse Gallbladder: No stones or sludge visualized Evidence for sonographic Smart's sign: No CBD: wnl as visualized, distal portion obscured by bowel gas Right Kidney: Limited visualization due to overlying bowel gas Incidental finding: Moderate amount of probable free fluid visualized within the pelvis, LLQ, and LUQ IMPRESSION: Exam is limited. Possible fatty infiltration of the liver versus hepatocellular disease. Fluid likely within the pelvis as on prior CT, incompletely evaluated.
[2017-01-02] MEDS ORDERED: RX INFO: IV CONTRAST WAS GIVEN 1 EACH MISC MISCELLANE PRN (21:42)
[2017-01-02 22:31] VITALS: RESP 18; TEMP 98.1
--- NOTE | 2017-01-02 22:40 | CT ---
EXAM: CT Abdomen and Pelvis With Intravenous Contrast CLINICAL HISTORY: Reason: pain TECHNIQUE: Axial computed tomography images of the abdomen and pelvis with intravenous contrast. CTDI is 17.4 mGy and DLP is 601.3 mGy-cm. This CT exam was performed using one or more of the following dose reduction techniques: automated exposure control, adjustment of the mA and/or kV according to patient size, and/or use of iterative reconstruction technique. COMPARISON: No relevant prior studies available. FINDINGS: The lung bases are clear. The liver, biliary tree, pancreas, spleen, and adrenal glands are within normal limits. Left kidney again demonstrates chronic obstruction and scarring/cortical thinning. There is no bowel obstruction or perforation. The appendix is not clearly identified. Large cystic pelvic mass measuring 26 x 7 x 7 cm. Unclear if this is ureteral/bladder or ovarian origin. A CT urogram might be helpful to determine whether this communicates with the ureter/kidney. Overall, findings are stable in the interval. Spina bifida and myelomeningocele and lumbar levocurvature with operative changes again noted. IMPRESSION: 26 x 7 x 7 cm cystic pelvic mass could be urinary or ovarian in origin. Similar appearance to prior. Consider correlation with nonemergent CT urogram.
[2017-01-02] MEDS ORDERED: FAMOTIDINE 20 MG/2 ML VIAL IV STA (23:05)
[2017-01-02] MEDS ORDERED: MAG HYDROX/AL HYDROX/SIMETH 30 ML, HYOSCYAMINE ELIXIR 10 ML, CIMETIDINE HCL 300 MG, LID... PO STA ×4 (23:05)
[2017-01-03 00:07] VITALS: BP 115/85; PULSE 105
== END 2017-01-03 00:17 | disposition home or self-care (01) ==
LOC: EC 18:16
DX: K29.70 Gastritis, unspecified, without bleeding (principal); R30.0 Dysuria; R11.2 Nausea with vomiting, unspecified; Z79.899 Other long term (current) drug therapy; Z91.040 Latex allergy status; Z87.440 Personal history of urinary (tract) infections; Z87.442 Personal history of urinary calculi; Z87.19 Personal history of other diseases of the digestive system; Z98.890 Other specified postprocedural states
CPT/HCPCS: 99284; 96374; 96375 ×2; 36415; 80053; 82150; 83690; 85025; 81001; 74000; 76705; 74177; J2405; J1170; Q9967

== ENCOUNTER 2017-01-07 19:16 | Emergency (ER) | payer MEDICARE, OTHER ==
--- NOTE | 2017-01-07 20:28 | XR ---
EXAMINATION TYPE: XR KUB DATE OF EXAM: 01/07/2017 COMPARISON: 01/02/2017 HISTORY: No urine output TECHNIQUE: Single view FINDINGS: There is no sign of intestinal obstruction or pneumoperitoneum. A catheter appears to be pr esent and the tip is in the pelvis. 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 There is thoracolumbar l evoscoliosis. There are no pathologic calcifications over the kidneys. There is a catheter over the r ight hemidiaphragm that could be a ventriculoperitoneal shunt catheter with the tip in the right uppe r quadrant. IMPRESSION: Nonacute abdomen. There is a lucency over the pelvis that could relate to the presence of a catheter which is not radiopaque. Clinical correlation is needed.
[2017-01-07] MEDS ORDERED: DOCUSATE 283 MG/5 ML ENEMA RECTAL STA (20:34)
--- NOTE | 2017-01-07 20:51 | ED ---
Female Urogenital HPI - General Chief complaint: Urogenital Stated complaint: blocked parisi Time Seen by Provider: 01/07/17 19:47 Source: patient, RN notes reviewed, old records reviewed Mode of arrival: wheelchair Limitations: no limitations - History of Present Illness Initial comments: 26-year-old female chief complaint of a blocked Parisi catheter. Patient reports that she saw Dr. Palomares who inserted the Parisi catheter cut she was retaining urine. Patient reports that it was inserted today and sensory o' clock she has not had much urine output. Patient reports that she's also been taking some constipation. 2 parts that she did have a bowel movement earlier today. Patient denies any recent fever or chills, chest pain, shortness of breath or severe abdominal pain. The patient was recently in the emergency department she was sinus with a cyst and has having that evaluated by a maintenance supervisor 2nd shift and her urologist Dr. severo knight. Last Menstrual Period: 01/18/17 - Related Data Home Medications Medication Instructions Recorded Confirmed Metoprolol Tartrate [Lopressor] 12.5 mg PO BID 01/02/17 01/07/17 Magnesium Citrate [Citrate of 20 ml PO DAILY PRN 01/07/17 01/07/17 Magnesia] Polyethylene Glycol 3350 [Miralax] 17 gm PO DAILY PRN 01/07/17 01/07/17 Previous Rx's Medication Instructions Recorded Sucralfate [Carafate] 1 gm PO BID #20 tablet 01/03/17 Bisacodyl [Dulcolax] 5 mg PO DAILY #20 tablet. 01/07/17 Allergies Allergy/AdvReac Type Severity Reaction Status Date / Time latex Allergy Fever from Verified 01/07/17 19:37 cath Review of Systems ROS Statement: Those systems with pertinent positive or pertinent negative responses have been documented in the HPI. ROS Other: All systems not noted in ROS Statement are negative. 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 Past Anesthesia/Blood Transfusion Reactions: No Reported Reaction Past Psychological History: No Psychological Hx Reported Smoking Status: Never smoker Past Alcohol Use History: None Reported Past Drug Use History: None Reported - Past Family History Mother Family Medical History: Cancer Additional Family Medical History / Comment(s): grandparents - lung General Exam - General Exam Comments Initial Comments: Lynnette 26-year-old female. No acute distress. Limitations: no limitations General appearance: alert, in no apparent distress Head exam: Present: atraumatic, normocephalic, normal inspection Eye exam: Present: normal appearance, PERRL, EOMI. Absent: scleral icterus, conjunctival injection, periorbital swelling ENT exam: Present: normal exam, mucous membranes moist Neck exam: Present: normal inspection. Absent: tenderness, meningismus, lymphadenopathy Respiratory exam: Present: normal lung sounds bilaterally. Absent: respiratory distress, wheezes, rales, rhonchi, stridor Cardiovascular Exam: Present: regular rate, normal rhythm, normal heart sounds. Absent: systolic murmur, diastolic murmur, rubs, gallop, clicks GI/Abdominal exam: Present: soft, normal bowel sounds. Absent: distended, tenderness, guarding, rebound, rigid Extremities exam: Present: normal inspection, full ROM, normal capillary refill. Absent: tenderness, pedal edema, joint swelling, calf tenderness Back exam: Present: normal inspection Neurological exam: Present: alert, oriented X3, CN II-XII intact Psychiatric exam: Present: normal affect, normal mood Skin exam: Present: warm, dry, intact, normal color. Absent: rash Course Vital Signs 01/07/17 19:33 Temperature 98.0 F Pulse Rate 110 H Respiratory 16 Rate Blood Pressure 129/86 O2 Sat by Pulse 97 Oximetry Medical Decision Making - Medical Decision Making Lynnette 26-year-old female chief complaint blocked Parisi catheter that was inserted today. Patient also reports that he is evidence of constipation. Patient's Parisi was flushed and 300 mL came out. Patient abdominal shows mild amount of stool.. Patient will be given therapeutic enema. Discussed close follow-up with her primary care provider and physician. Patient understands treatment plan and will comply. Return parameters were discussed. - Radiology Data Radiology results: report reviewed Nonacute abdomen. Lucency over the pelvis occur related to presence of a catheter which is not radiopaque. Clinical correlation needed. Disposition Clinical Impression: Complication, blocked Parisi catheter, Constipation Disposition: HOME SELF-CARE Condition: Good Additional Instructions: Patient denies follow-up with her primary care physician as well as her other specialists. Return to emergency department if any alarming signs or symptoms occur. Prescriptions: Bisacodyl [Dulcolax] 5 mg PO DAILY #20 tablet. Referrals: Erasmo Edward DO [Primary Care Provider] - 1-2 days Time of Disposition: 20:50
[2017-01-07 21:41] VITALS: BP 123/80; PULSE 77; RESP 18; TEMP 98.2
== END 2017-01-07 21:39 | disposition home or self-care (01) ==
LOC: EC 19:16
DX: T83.098A Other mechanical complication of other urinary catheter, initial encounter (principal); K59.00 Constipation, unspecified; Z91.040 Latex allergy status; Z79.899 Other long term (current) drug therapy
CPT/HCPCS: 51702; 74000; 99283

== ENCOUNTER 2017-01-08 06:25 | Emergency (ER) | payer MEDICARE, OTHER ==
[2017-01-08 06:31] VITALS: BP 121/85; PULSE 102; RESP 16; TEMP 97.2
--- NOTE | 2017-01-08 06:39 | ED ---
Female Urogenital HPI - General Chief complaint: Urogenital Stated complaint: Female Time Seen by Provider: 01/08/17 06:32 Source: patient, RN notes reviewed, old records reviewed Mode of arrival: wheelchair Limitations: no limitations - History of Present Illness Initial comments: This is a 26-year-old female with history of spina bifida who was here last evening and had a Liu catheter irrigated that she had expected it taken out. She normally self caths milligrams central catheterization. She denies edema sure how this way she did call her urologist who did recommend that she take the catheter out she states she cannot do herself. She denies any abdominal pain fevers chills nausea vomiting sweats or other symptoms. MD Complaint: other - Related Data Home Medications Medication Instructions Recorded Confirmed Metoprolol Tartrate [Lopressor] 12.5 mg PO BID 01/02/17 01/07/17 Magnesium Citrate [Citrate of 20 ml PO DAILY PRN 01/07/17 01/07/17 Magnesia] Polyethylene Glycol 3350 [Miralax] 17 gm PO DAILY PRN 01/07/17 01/07/17 Previous Rx's Medication Instructions Recorded Sucralfate [Carafate] 1 gm PO BID #20 tablet 01/03/17 Bisacodyl [Dulcolax] 5 mg PO DAILY #20 tablet. 01/07/17 Allergies Allergy/AdvReac Type Severity Reaction Status Date / Time latex Allergy Fever from Verified 01/08/17 06:31 cath Review of Systems ROS Statement: Those systems with pertinent positive or pertinent negative responses have been documented in the HPI. ROS Other: All systems not noted in ROS Statement are negative. 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 Past Anesthesia/Blood Transfusion Reactions: No Reported Reaction Past Psychological History: No Psychological Hx Reported Smoking Status: Never smoker Past Alcohol Use History: None Reported Past Drug Use History: None Reported - Past Family History Mother Family Medical History: Cancer Additional Family Medical History / Comment(s): grandparents - lung General Exam - General Exam Comments Initial Comments: This is a follow-up well-nourished awake alert oriented x 3 female Limitations: no limitations General appearance: alert, in no apparent distress Head exam: Present: atraumatic, normocephalic, normal inspection Eye exam: Present: normal appearance, PERRL, EOMI. Absent: scleral icterus, conjunctival injection, periorbital swelling ENT exam: Present: normal exam, mucous membranes moist Neck exam: Present: normal inspection. Absent: tenderness, meningismus, lymphadenopathy GI/Abdominal exam: Present: soft. Absent: tenderness, pulsatile mass, hernia Neurological exam: Present: alert, oriented X3, CN II-XII intact Psychiatric exam: Present: normal affect, normal mood Skin exam: Present: warm, dry, intact, normal color. Absent: rash Course Vital Signs 01/08/17 06:28 Temperature 97.2 F L Pulse Rate 102 H Respiratory 16 Rate Blood Pressure 121/85 O2 Sat by Pulse 100 Oximetry Medical Decision Making - Medical Decision Making The catheter will be removed in be discharged she will be sent home with a hat so she can measure her urine. She is follow-up with her urologist and return when necessary Disposition Clinical Impression: Liu catheter problem Disposition: HOME SELF-CARE Condition: Good Instructions: Chronic Urinary Retention in Women (ED) Referrals: Erasmo Edward DO [Primary Care Provider] - 1-2 days
== END 2017-01-08 06:52 | disposition home or self-care (01) ==
LOC: EC 06:25
DX: T83.9XXA Unspecified complication of genitourinary prosthetic device, implant and graft, initial encounter (principal); Q05.9 Spina bifida, unspecified; Z79.899 Other long term (current) drug therapy; Z91.040 Latex allergy status; Z98.890 Other specified postprocedural states; Z87.442 Personal history of urinary calculi; Z87.440 Personal history of urinary (tract) infections; Y84.9 Medical procedure, unspecified as the cause of abnormal reaction of the patient, or of later complication, without mention of misadventure at the time of the procedure
CPT/HCPCS: 99283

== ENCOUNTER 2017-01-29 16:27 | Observation (INO) | payer MEDICARE, OTHER ==
[2017-01-29] MEDS ORDERED: SODIUM CHLORIDE 0.9% 500 ML IV STA (17:12)
--- NOTE | 2017-01-29 17:16 | ED ---
Female Urogenital HPI - General Chief complaint: Urogenital Stated complaint: Poss Bladder Infection, chest pain Time Seen by Provider: 01/29/17 17:08 Source: patient, RN notes reviewed Mode of arrival: wheelchair Limitations: no limitations - History of Present Illness Initial comments: 26 yo female presents to the ER with cc of dysuria. Patient has a history of cerebral palsy and she self. Patient States She Was Seen by A few days ago they noticed her urine did have some blood in it however she states maxillary did not treat. He states she's now having some lower abdominal pain she is having some burning and vaginal bleeding. Patient also admits to chest pain with this no shortness of breath she states is typical for her UTIs. Patient states she hasn't noticed any fever chills at home. Patient states she was concerned due to her symptoms so she thought that she should be evaluated. Patient denies any recent fever, chills, shortness of breath, back pain, abdominal pain, nausea vomiting, numbness or tingling, hematuria, constipation or diarrhea, headaches or visual changes, or any other current symptoms. - Related Data Home Medications Medication Instructions Recorded Confirmed Metoprolol Tartrate [Lopressor] 12.5 mg PO BID 01/02/17 01/29/17 Acetaminophen [Tylenol] 325 mg PO HS PRN 01/29/17 01/29/17 Allergies Allergy/AdvReac Type Severity Reaction Status Date / Time latex Allergy Fever from Verified 01/29/17 17:15 cath Review of Systems ROS Statement: Those systems with pertinent positive or pertinent negative responses have been documented in the HPI. ROS Other: All systems not noted in ROS Statement are negative. 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 BOOSTER STATION OPERATOR shunt. Past Anesthesia/Blood Transfusion Reactions: No Reported Reaction Past Psychological History: No Psychological Hx Reported Smoking Status: Never smoker Past Alcohol Use History: None Reported Past Drug Use History: None Reported - Past Family History Mother Family Medical History: Cancer Additional Family Medical History / Comment(s): grandparents - lung General Exam - General Exam Comments Initial Comments: General: The patient is awake and alert, in no distress, and does not appear acutely ill. Eye: Pupils are equal, round and reactive to light, extra-ocular movements are intact; there is normal conjunctiva bilaterally. No signs of icterus. Ears, nose, mouth and throat: There are moist mucous membranes. Neck: The neck is supple, there is no tenderness. Cardiovascular: There is a regular rate and rhythm. No murmur, rub or gallop is appreciated. Respiratory: Lungs are clear to auscultation, respirations are non-labored, breath sounds are equal. No wheezes, stridor, rales, or rhonchi. Gastrointestinal: Soft, non-distended, non-tender abdomen without masses or organomegaly noted. There is no rebound or guarding present. No CVA tenderness. Bowel sounds are unremarkable. Back: There is no tenderness to palpation in the midline. There is no obvious deformity. No rashes noted. Musculoskeletal: Normal ROM, no tenderness, There is no pedal edema. There is no calf tenderness or swelling. Sensation intact. Pulses equal bilaterally 2+. Neurological: CN II-XII intact, There are no obvious motor or sensory deficits. Coordination appears grossly intact. Speech is normal. Skin: Skin is warm and dry and no rashes or lesions are noted. Psychiatric: Cooperative, appropriate mood & affect, normal judgment. Limitations: no limitations Course Vital Signs 01/29/17 01/29/17 16:55 18:00 Temperature 99.1 F 99.1 F Pulse Rate 114 H 110 H Respiratory 18 20 Rate Blood Pressure 136/78 121/83 O2 Sat by Pulse 99 100 Oximetry Medical Decision Making - Medical Decision Making 26-year-old female presents to the emergency Department chief complaint of dysuria. At this time patient's lab work is reviewed and does appear that the patient is positive for UTI. This time we did start Rocephin for the patient. Due to the patient's extensive history of UTIs and her continued symptoms and we will admit the patient overnight for IV antibiotics. The patient is in agreement this plan all questions have been answered. Dr. Moncada talk to Dr. Ames he does agree to the admission. - Lab Data Result diagrams: 01/29/17 18:06 01/29/17 18:06 Lab Results 07/07/0601/29/17 01/29/17 Range/Units 18:06 18:06 18:06 WBC 7.8 (3.8-10.6) k/uL RBC 4.54 (3.80-5.40) m/uL Hgb 11.9 (11.4-16.0) gm/dL Hct 34.8 (34.0-46.0) % MCV 76.6 L (80.0-100.0) fL MCH 26.1 (25.0-35.0) pg MCHC 34.1 (31.0-37.0) g/dL RDW 14.4 (11.5-15.5) % Plt Count 373 (150-450) k/uL Neutrophils % 59 % Lymphocytes % 35 % Monocytes % 4 % Eosinophils % 0 % Basophils % 0 % Neutrophils # 4.6 (1.3-7.7) k/uL Lymphocytes # 2.7 (1.0-4.8) k/uL Monocytes # 0.3 (0-1.0) k/uL Eosinophils # 0.0 (0-0.7) k/uL Basophils # 0.0 (0-0.2) k/uL Sodium 142 (137-145) mmol/L Potassium 4.3 (3.5-5.1) mmol/L Chloride 109 H (98-107) mmol/L Carbon Dioxide 21 L (22-30) mmol/L Anion Gap 12 mmol/L BUN 12 (7-17) mg/dL Creatinine 0.60 (0.52-1.04) mg/dL Est GFR (MDRD) Af Amer >60 (>60 ml/min/1.73 sqM) Est GFR (MDRD) Non-Af >60 (>60 ml/min/1.73 sqM) Glucose 84 (74-99) mg/dL Plasma Lactic Acid Mauro 0.9 (0.7-2.0) mmol/L Calcium 9.8 (8.4-10.2) mg/dL Total Bilirubin 0.4 (0.2-1.3) mg/dL AST 20 (14-36) U/L ALT 25 (9-52) U/L Alkaline Phosphatase 62 (38-126) U/L Total Protein 7.6 (6.3-8.2) g/dL Albumin 4.5 (3.5-5.0) g/dL Amylase 85 (30-110) U/L Lipase 138 (23-300) U/L Urine Color Urine Appearance (Clear) Urine pH (5.0-8.0) Ur Specific [place] (1.001-1.035) Urine Protein (Negative) Urine Glucose (UA) (Negative) Urine Ketones (Negative) Urine Blood (Negative) Urine Nitrite (Negative) Urine Bilirubin (Negative) Urine Urobilinogen (<2.0) mg/dL Ur Leukocyte Esterase (Negative) Urine RBC (0-5) /hpf Urine WBC (0-5) /hpf Urine WBC Clumps (None) /hpf Ur Squamous Epith Cells (0-4) /hpf Amorphous Sediment (None) /hpf Hyaline Casts (0-2) /lpf Urine Mucus (None) /hpf 01/29/17 Range/Units 18:15 WBC (3.8-10.6) k/uL RBC (3.80-5.40) m/uL Hgb (11.4-16.0) gm/dL Hct (34.0-46.0) % MCV (80.0-100.0) fL MCH (25.0-35.0) pg MCHC (31.0-37.0) g/dL RDW (11.5-15.5) % Plt Count (150-450) k/uL Neutrophils % % Lymphocytes % % Monocytes % % Eosinophils % % Basophils % % Neutrophils # (1.3-7.7) k/uL Lymphocytes # (1.0-4.8) k/uL Monocytes # (0-1.0) k/uL Eosinophils # (0-0.7) k/uL Basophils # (0-0.2) k/uL Sodium (137-145) mmol/L Potassium (3.5-5.1) mmol/L Chloride (98-107) mmol/L Carbon Dioxide (22-30) mmol/L Anion Gap mmol/L BUN (7-17) mg/dL Creatinine (0.52-1.04) mg/dL Est GFR (MDRD) Af Amer (>60 ml/min/1.73 sqM) Est GFR (MDRD) Non-Af (>60 ml/min/1.73 sqM) Glucose (74-99) mg/dL Plasma Lactic Acid Mauro (0.7-2.0) mmol/L Calcium (8.4-10.2) mg/dL Total Bilirubin (0.2-1.3) mg/dL AST (14-36) U/L ALT (9-52) U/L Alkaline Phosphatase (38-126) U/L Total Protein (6.3-8.2) g/dL Albumin (3.5-5.0) g/dL Amylase (30-110) U/L Lipase (23-300) U/L Urine Color Yellow Urine Appearance Cloudy H (Clear) Urine pH 6.0 (5.0-8.0) Ur Specific [place] 1.012 (1.001-1.035) Urine Protein Trace H (Negative) Urine Glucose (UA) Negative (Negative) Urine Ketones Negative (Negative) Urine Blood Negative (Negative) Urine Nitrite Negative (Negative) Urine Bilirubin Negative (Negative) Urine Urobilinogen <2.0 (<2.0) mg/dL Ur Leukocyte Esterase Large H (Negative) Urine RBC 5 (0-5) /hpf Urine WBC >182 H (0-5) /hpf Urine WBC Clumps Many H (None) /hpf Ur Squamous Epith Cells 5 H (0-4) /hpf Amorphous Sediment Rare H (None) /hpf Hyaline Casts 10 H (0-2) /lpf Urine Mucus Rare H (None) /hpf - EKG Data -: EKG Interpreted by Me 01/29/17 18:03 normal sinus rhythm 96 bpm, normal axis, no atopy, no S-T depressions or elevations, compared to EKG from 03/25/2016 with no noticed changes. - Radiology Data Radiology results: report reviewed, image reviewed Disposition Clinical Impression: Tachycardia, UTI (urinary tract infection) Disposition: ADMITTED IP TO THIS [facility] Condition: Stable Referrals: Erasmo Edward DO [Primary Care Provider] - 1-2 days Time of Disposition: 18:35 Decision Date: 01/29/17 Decision Time: 18:35
--- NOTE | 2017-01-29 18:00 | XR ---
EXAMINATION TYPE: XR chest 2V DATE OF EXAM: 01/29/2017 COMPARISON: 12/28/2016 HISTORY: Chest pain TECHNIQUE: Frontal and lateral views of the chest are obtained. FINDINGS: Increased density right medial lung base may reflect developing infiltrate. No evidence for pneumothorax. No pleural effusion. The cardiac silhouette size is within normal limits. The osseous structures are grossly intact. EDGER TAILER shunt noted. IMPRESSION: 1. Increased density right medial lung base may reflect developing infiltrate.
[2017-01-29 18:16] LABS: Basophils % (A) 0 %; CH 24.8; CHCM 32.5; Eosinophils % (A) 0 %; HCT 34.8 % (34.0-46.0); HDW 2.81; HGB 11.9 gm/dL (11.4-16.0); Luc % (Auto) 1; Lymphocytes # (A) 2.7 k/uL (1.0-4.8); Lymphocytes % (A) 35 %; MCH 26.1 pg (25.0-35.0); MCHC 34.1 g/dL (31.0-37.0); MCV 76.6 fL (80.0-100.0); Mean Platelet Volume 6.4; Monocytes # (A) 0.3 k/uL (0-1.0); Monocytes % (A) 4 %; Neutrophils # (A) 4.6 k/uL (1.3-7.7); Neutrophils % (A) 59 %; RBC 4.54 m/uL (3.80-5.40); RDW 14.4 % (11.5-15.5); WBC 7.8 k/uL (3.8-10.6); WBC (Perox) 7.62
[2017-01-29] MEDS ORDERED: ACETAMINOPHEN TAB 500 MG TAB PO STA (18:25)
[2017-01-29 18:28] LABS: ALT 25 U/L (9-52); AST 20 U/L (14-36); Alkaline Phosphatase 62 U/L (38-126); Amylase 85 U/L (30-110); Anion Gap 12 mmol/L; Blood Urea Nitrogen 12 mg/dL (7-17); Calcium 9.8 mg/dL (8.4-10.2); Carbon Dioxide 21 mmol/L (22-30); Chloride 109 mmol/L (98-107); Glucose 84 mg/dL (74-99); Non-African American GFR(MDRD) >60 (>60 ml/min/1.73 sqM); Potassium 4.3 mmol/L (3.5-5.1); Sodium 142 mmol/L (137-145); Total Bilirubin 0.4 mg/dL (0.2-1.3); Total Protein 7.6 g/dL (6.3-8.2)
[2017-01-29 18:28] LABS: Amorphous Sediment,Urine Rare /hpf; Appearance,Urine Cloudy (Clear); Bilirubin,Urine Negative (Negative); Glucose,Urine (UA) Negative (Negative); Ketones,Urine Negative (Negative); Leukocyte Esterase,Urine Large (Negative); Mucus,Urine Rare /hpf; Nitrite,Urine Negative (Negative); Particle Count 10561; Protein,Urine Trace (Negative); RBC,Urine 5 /hpf (0-5); Specific Gravity,Urine 1.012 (1.001-1.035); Squamous Epithelial Cell,Urine 5 /hpf (0-4); UA Billing (MACRO vs. MICRO) MICRO; Urobilinogen,Urine <2.0 mg/dL (<2.0); WBC,Urine >182 /hpf (0-5)
[2017-01-29] MEDS ORDERED: ONDANSETRON 4 MG/2 ML VIAL IVP PRN (18:35)
[2017-01-29] MEDS ORDERED: ACETAMINOPHEN TAB 325 MG TAB PO PRN (18:35)
[2017-01-29] MEDS ORDERED: NALOXONE 0.4 MG/ML 1 ML VIAL IV PRN (18:35)
[2017-01-29] MEDS: IBUPROFEN 400 MG TAB PO PRN (18:53)
[2017-01-29] MEDS: SODIUM CHLORIDE 0.9% 1,000 ML IV SCH (18:53)
[2017-01-29 20:32] VITALS: BMI 24.0
[2017-01-29] MEDS: METOPROLOL TARTRATE 12.5 MG TAB PO SCH (20:36)
--- NOTE | 2017-01-29 21:58 | P.HPIM ---
History of Present Illness H&P Date: 01/29/17 Chief Complaint: Burning in the urine This is a very pleasant 26-year-old patient of Dr. Edward. 4 history of cerebral palsy and spina bifida. Patient is good condition at the left hip dislocation. Patient does get recurrent UTIs. Patient urine with a significant other. Patient presents with one day of burning in the urine nausea and lower abdominal pain and admitted from the ER for the same. Patient needs help with ambulation. Patient does get recurrent wounds on the left medial ankle. Appetite is maintained. Not sure if she has a fever. Also complained of lower suprapubic/abdominal pain Significant past mental history: Cerebral palsy, spina bifida, is kidney stones, chronic left hip dislocation, multiple UTIs Review of Systems GEN.: Chills EYES: None HEENT: None NECK: None RESPIRATORY: None CARDIOVASCULAR: None GASTROINTESTINAL: None GENITOURINARY: Dysuria MUSCULOSKELETAL: None LYMPHATICS: None] HEMATOLOGICAL: [None] PSYCHIATRY: [None] NEUROLOGICAL: [Weakness in the lower extremities with some body in the right leg some sensation of the right leg DERMATOLOGICAL-wound on the left medial malleolus] Past Medical History Additional Past Medical History / Comment(s): spina bifida, kidney stones, " 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 GUM PULLER shunt. Past Anesthesia/Blood Transfusion Reactions: No Reported Reaction Past Psychological History: No Psychological Hx Reported Additional Psychological History / Comment(s): S Smoking Status: Never smoker Past Alcohol Use History: None Reported Past Drug Use History: None Reported Additional History: Lives with significant other - Past Family History Mother Family Medical History: Cancer Additional Family Medical History / Comment(s): grandparents - lung Medications and Allergies Home Medications Medication Instructions Recorded Confirmed Type Metoprolol Tartrate [Lopressor] 12.5 mg PO BID 01/02/17 01/29/17 History Acetaminophen [Tylenol] 325 mg PO HS PRN 01/29/17 01/29/17 History Allergies Allergy/AdvReac Type Severity Reaction Status Date / Time latex Allergy Fever from Verified 01/29/17 17:15 cath Physical Exam VITAL SIGNS: Afebrile, 110, 20, 121/83, 100% room air GENERAL: Average built, sitting up, comfortable. EYES: Pupils equal. Conjunctiva normal. HEENT: External appearance of nose and ears normal, oral cavity grossly normal. NECK: JVD not raised; masses not palpable. HEART: First and second heart sounds are normal; no edema. LUNGS: Respiratory rate normal; clear to auscultation. ABDOMEN: Soft, nontender, liver spleen not palpable, no masses palpable. LYMPHATICS: No lymph nodes palpable in the axilla and neck. PSYCH: Alert and oriented x3; mood and affect normal. NEUROLOGICAL: [Minimal body and sensation in the left leg, power 2 x 5 in the right leg with some sensation preserved Results CBC & Chem 7: 01/29/17 18:06 01/29/17 18:06 Labs: White count 7.8, hemoglobin 11.9, platelets 373, potassium 4.3,. Creatinine normal, UA positive Thrombosis Risk Factor Assmnt - Choose All That Apply Any of the Below Risk Factors Present?: No Assessment and Plan Plan: Assessment: -Chronic and UTI with cystitis, in a patient with known multiple recurrent UTIs from chronic underlying neurogenic bladder -Chronic spina bifida, causing paraplegia -Chronic left hydroureter and hydronephrosis Left medial malleolus wound possibly decub, present on admission, noninfected appearing Plan: Patient started on IV ceftriaxone, home medications are resumed, Lovenox for DVT prophylaxis, care was discussed with the patient's significant other questions were answered.
[2017-01-30] MEDS: ENOXAPARIN 40 MG/0.4 ML SYRINGE SQ SCH ×2 (00:25→09:12)
[2017-01-30] MEDS: SODIUM CHLORIDE 0.9% 1,000 ML IV SCH (05:02)
[2017-01-30] MEDS: IBUPROFEN 400 MG TAB PO PRN (06:23)
[2017-01-30 07:31] LABS: Basophils % (A) 1 %; CH 24.4; CHCM 30.6; Eosinophils % (A) 0 %; HCT 30.6 % (34.0-46.0); HDW 2.72; Hypochromasia Moderate; Luc % (Auto) 2; Lymphocytes # (A) 2.8 k/uL (1.0-4.8); Lymphocytes % (A) 48 %; MCH 25.8 pg (25.0-35.0); MCHC 32.2 g/dL (31.0-37.0); Mean Platelet Volume 6.4; Monocytes # (A) 0.3 k/uL (0-1.0); Monocytes % (A) 5 %; Neutrophils # (A) 2.7 k/uL (1.3-7.7); Neutrophils % (A) 46 %; RBC 3.82 m/uL (3.80-5.40); RDW 14.4 % (11.5-15.5); WBC 5.8 k/uL (3.8-10.6)
[2017-01-30 07:38] LABS: HGB 9.9 gm/dL (11.4-16.0)
[2017-01-30 08:08] LABS: ALT 19 U/L (9-52); AST 13 U/L (14-36); Alkaline Phosphatase 45 U/L (38-126); Anion Gap 8 mmol/L; Blood Urea Nitrogen 11 mg/dL (7-17); Calcium 8.3 mg/dL (8.4-10.2); Carbon Dioxide 17 mmol/L (22-30); Chloride 113 mmol/L (98-107); Glucose 82 mg/dL (74-99); Non-African American GFR(MDRD) >60 (>60 ml/min/1.73 sqM); Potassium 4.1 mmol/L (3.5-5.1); Sodium 138 mmol/L (137-145); Total Bilirubin 0.5 mg/dL (0.2-1.3); Total Protein 5.8 g/dL (6.3-8.2)
[2017-01-30 09:11] VITALS: BP 102/60; PULSE 80; RESP 18; TEMP 98.8
[2017-01-30] MEDS: METOPROLOL TARTRATE 12.5 MG TAB PO SCH (09:13)
--- NOTE | 2017-01-31 19:13 | P.DS ---
Providers Date of admission: 01/29/17 18:49 Expected date of discharge: 01/30/17 Attending physician: Forrest Ames Primary care physician: Erasmo Edward [facility] Course: This is a very pleasant 26-year-old patient of Dr. Edward. 4 history of cerebral palsy and spina bifida. Patient is good condition at the left hip dislocation. Patient does get recurrent UTIs. Patient urine with a significant other. Patient presents with one day of burning in the urine nausea and lower abdominal pain and admitted from the ER for the same. Patient needs help with ambulation. Patient does get recurrent wounds on the left medial ankle. Appetite is maintained. Not sure if she has a fever. Also complained of lower suprapubic/abdominal pain. By the time of discharge. His symptoms are greatly improved. No more abdominal pain, no dysuria, afebrile, tolerating a diet well. Very keen to go home. Care was discussed with the patient and her significant other at the bedside. On examination: Abdomen soft nontender, and wound on the left medial malleolus, weakness and lower extremity with some body in the right leg more than the left and some sensation in the right leg. Final diagnosis: -Acute UTI with cystitis, in a patient with known multiple recurrent UTIs from chronic underlying neurogenic bladder, with culture negative -Chronic spina bifida, causing paraplegia -Chronic left hydroureter and hydronephrosis Left medial malleolus wound possibly decub, present on admission, noninfected appearing, has a follow-up with the wound care doctor scheduled Patient Condition at Discharge: Stable Plan - Discharge Summary New Discharge Prescriptions: New Cefuroxime [Ceftin] 250 mg PO BID #6 tablet Continue Metoprolol Tartrate [Lopressor] 12.5 mg PO BID Acetaminophen [Tylenol] 325 mg PO HS PRN PRN Reason: Pain Discharge Medication List Metoprolol Tartrate [Lopressor] 12.5 mg PO BID 01/02/17 [History] Acetaminophen [Tylenol] 325 mg PO HS PRN 01/29/17 [History] Cefuroxime [Ceftin] 250 mg PO BID #6 tablet 01/30/17 [Rx] Follow up Appointment(s)/Referral(s): Erasmo Edward, [Primary Care Provider] - 1-2 days Patient Instructions/Handouts: Urinary Tract Infection in Women (DC), How to Catheterize Yourself (Woman) (GEN) Activity/Diet/Wound Care/Special Instructions: Increase your fluids, especially in this hot weather and because you have a urinary tract infection. Take tylenol or motrin as needed for pain. If worsening symptoms or fever contact your doctor. Please call for a follow up appointment with your primary doctor. Discharge Disposition: HOME SELF-CARE
== END 2017-01-30 13:03 | disposition home or self-care (01) ==
LOC: EC 16:27 → 6PED 18:49
PROVIDERS: ADMIT Hospitalist; ATTEND Hospitalist
DX: N30.00 Acute cystitis without hematuria (principal); G80.9 Cerebral palsy, unspecified; Q05.9 Spina bifida, unspecified; N31.9 Neuromuscular dysfunction of bladder, unspecified; N13.30 Unspecified hydronephrosis; R07.9 Chest pain, unspecified; Z79.899 Other long term (current) drug therapy; Z91.040 Latex allergy status; Z87.442 Personal history of urinary calculi; Z87.440 Personal history of urinary (tract) infections; Z98.2 Presence of cerebrospinal fluid drainage device
CPT/HCPCS: 96375 ×2; 99284 ×2; 96361 ×2; 96365; 96366; 96372; 36415; 93005; 80053 ×2; 82150; 83605; 83690; 85025 ×2; 81001; 87040; 87086; 71020; G0378 ×2; J2405; J1650; J0696 ×2

== ENCOUNTER 2017-01-31 20:21 | Emergency (ER) | payer MEDICARE, OTHER ==
[2017-01-31 20:26] VITALS: TEMP 98.1
[2017-01-31] MEDS ORDERED: ONDANSETRON 4 MG/2 ML VIAL IVP STA (22:34)
[2017-01-31 23:32] LABS: Basophils % (A) 0 %; CH 24.8; CHCM 31.9; Eosinophils # (A) 0.1 k/uL (0-0.7); Eosinophils % (A) 1 %; HDW 2.73; HGB 10.7 gm/dL (11.4-16.0); Hypochromasia Slight; Luc # (Auto) 0.13; Luc % (Auto) 1; Lymphocytes # (A) 3.4 k/uL (1.0-4.8); Lymphocytes % (A) 37 %; MCHC 33.4 g/dL (31.0-37.0); MCV 77.9 fL (80.0-100.0); Mean Platelet Volume 6.8; Monocytes # (A) 0.4 k/uL (0-1.0); Monocytes % (A) 4 %; Neutrophils # (A) 5.2 k/uL (1.3-7.7); Neutrophils % (A) 57 %; RDW 14.4 % (11.5-15.5); WBC 9.2 k/uL (3.8-10.6); WBC (Perox) 9.31
[2017-01-31 23:36] LABS: Appearance,Urine Cloudy (Clear); Bacteria,Urine Rare /hpf; Bilirubin,Urine Negative (Negative); Glucose,Urine (UA) Negative (Negative); Ketones,Urine Negative (Negative); Leukocyte Esterase,Urine Trace (Negative); Mucus,Urine Rare /hpf; Nitrite,Urine Negative (Negative); PH, Urine 5.5 (5.0-8.0); Particle Count 4538; Protein,Urine 1+ (Negative); RBC,Urine 5 /hpf (0-5); Specific Gravity,Urine 1.011 (1.001-1.035); Squamous Epithelial Cell,Urine 1 /hpf (0-4); UA Billing (MACRO vs. MICRO) MICRO; Urobilinogen,Urine <2.0 mg/dL (<2.0); WBC,Urine 91 /hpf (0-5)
[2017-01-31 23:58] LABS: Amylase 95 U/L (30-110); Anion Gap 12 mmol/L; Calcium 9.3 mg/dL (8.4-10.2); Carbon Dioxide 17 mmol/L (22-30); Chloride 110 mmol/L (98-107); Glucose 82 mg/dL (74-99); Non-African American GFR(MDRD) >60 (>60 ml/min/1.73 sqM); Sodium 139 mmol/L (137-145); Total Bilirubin 0.4 mg/dL (0.2-1.3)
[2017-02-01 00:03] LABS: ALT 25 U/L (9-52); AST 29 U/L (14-36); Alkaline Phosphatase 57 U/L (38-126); Blood Urea Nitrogen 11 mg/dL (7-17); Potassium 4.4 mmol/L (3.5-5.1)
--- NOTE | 2017-02-01 00:25 | ED ---
Abdominal Pain HPI - General Chief Complaint: Abdominal Pain Stated Complaint: bladder infection-revisit Time Seen by Provider: 01/31/17 21:58 Source: patient Mode of arrival: wheelchair Limitations: physical limitation - Related Data Home Medications Medication Instructions Recorded Confirmed Metoprolol Tartrate [Lopressor] 12.5 mg PO BID 01/31/17 01/31/17 Previous Rx's Medication Instructions Recorded Cefuroxime [Ceftin] 250 mg PO BID #6 tablet 01/30/17 Ondansetron Odt [Zofran Odt] 4 mg PO Q8HR PRN #12 tab 02/01/17 Phenazopyridine [Pyridium] 100 mg PO TID #9 tablet 02/01/17 Allergies Allergy/AdvReac Type Severity Reaction Status Date / Time latex Allergy Fever from Verified 01/31/17 20:26 cath Review of Systems ROS Statement: Those systems with pertinent positive or pertinent negative responses have been documented in the HPI. ROS Other: All systems not noted in ROS Statement are negative. 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 RAT BREEDER shunt. Past Anesthesia/Blood Transfusion Reactions: No Reported Reaction Past Psychological History: No Psychological Hx Reported Smoking Status: Never smoker Past Alcohol Use History: None Reported Past Drug Use History: None Reported - Past Family History Mother Family Medical History: Cancer Additional Family Medical History / Comment(s): grandparents - lung General Exam Limitations: physical limitation Course Vital Signs 01/31/17 20:23 Temperature 98.1 F Pulse Rate 108 H Respiratory 18 Rate Blood Pressure 131/90 O2 Sat by Pulse 100 Oximetry Medical Decision Making - Lab Data Result diagrams: 01/31/17 23:15 01/31/17 23:15 Lab Results 01/31/17 01/31/17 01/31/17 Range/Units 23:15 23:15 23:15 WBC 9.2 (3.8-10.6) k/uL RBC 4.10 (3.80-5.40) m/uL Hgb 10.7 L (11.4-16.0) gm/dL Hct 32.0 L (34.0-46.0) % MCV 77.9 L (80.0-100.0) fL MCH 26.0 (25.0-35.0) pg MCHC 33.4 (31.0-37.0) g/dL RDW 14.4 (11.5-15.5) % Plt Count 349 (150-450) k/uL Neutrophils % 57 % Lymphocytes % 37 % Monocytes % 4 % Eosinophils % 1 % Basophils % 0 % Neutrophils # 5.2 (1.3-7.7) k/uL Lymphocytes # 3.4 (1.0-4.8) k/uL Monocytes # 0.4 (0-1.0) k/uL Eosinophils # 0.1 (0-0.7) k/uL Basophils # 0.0 (0-0.2) k/uL Hypochromasia Slight Sodium 139 (137-145) mmol/L Potassium 4.4 (3.5-5.1) mmol/L Chloride 110 H (98-107) mmol/L Carbon Dioxide 17 L (22-30) mmol/L Anion Gap 12 mmol/L BUN 11 (7-17) mg/dL Creatinine 0.50 L (0.52-1.04) mg/dL Est GFR (MDRD) Af Amer >60 (>60 ml/min/1.73 sqM) Est GFR (MDRD) Non-Af >60 (>60 ml/min/1.73 sqM) Glucose 82 (74-99) mg/dL Calcium 9.3 (8.4-10.2) mg/dL Total Bilirubin 0.4 (0.2-1.3) mg/dL AST 29 (14-36) U/L ALT 25 (9-52) U/L Alkaline Phosphatase 57 (38-126) U/L Total Protein 7.0 (6.3-8.2) g/dL Albumin 4.2 (3.5-5.0) g/dL Amylase 95 (30-110) U/L Lipase 164 (23-300) U/L Urine Color Light Yellow Urine Appearance Cloudy H (Clear) Urine pH 5.5 (5.0-8.0) Ur Specific [place] 1.011 (1.001-1.035) Urine Protein 1+ H (Negative) Urine Glucose (UA) Negative (Negative) Urine Ketones Negative (Negative) Urine Blood Negative (Negative) Urine Nitrite Negative (Negative) Urine Bilirubin Negative (Negative) Urine Urobilinogen <2.0 (<2.0) mg/dL Ur Leukocyte Esterase Trace H (Negative) Urine RBC 5 (0-5) /hpf Urine WBC 91 H (0-5) /hpf Urine WBC Clumps Few H (None) /hpf Ur Squamous Epith Cells 1 (0-4) /hpf Urine Bacteria Rare H (None) /hpf Urine Mucus Rare H (None) /hpf Disposition Clinical Impression: UTI (urinary tract infection) Disposition: HOME SELF-CARE Condition: Good Instructions: Urinary Tract Infection in Women (ED) Additional Instructions: Patient is to rest, increase fluids. Take nausea medicine and continue her previously prescribed antibiotics. Return to the emergency department if any alarming signs or symptoms occur. Prescriptions: Ondansetron Odt [Zofran Odt] 4 mg PO Q8HR PRN #12 tab PRN Reason: Nausea Phenazopyridine [Pyridium] 100 mg PO TID #9 tablet Referrals: Erasmo Edward DO [Primary Care Provider] - 1-2 days Time of Disposition: 00:23
--- NOTE | 2017-02-01 00:28 | XR ---
EXAM: XR Abdomen, 1 View CLINICAL HISTORY: Reason: abdominal pain TECHNIQUE: Frontal supine view of the abdomen/pelvis. COMPARISON: 01/07/2017 FINDINGS: Gastrointestinal tract: A large amount of stool seen within the splenic flexure, likely representing constipation. No dilation. Bones/joints: Severe levoscoliosis of the lumbar spine is seen with left-sided screws and rods involving the probable T11-T12 vertebrae. No other significant change involving the osseous structures. IMPRESSION: Large amount of stool within the splenic flexure of the colon, likely represent constipation, more conspicuous on the study in the prior..
[2017-02-01] MEDS ORDERED: ONDANSETRON 4 MG ODT STARTER PACK 2 TAB BTL PO STA (00:33)
[2017-02-01 00:49] VITALS: BP 104/55; PULSE 78; RESP 16
== END 2017-02-01 00:51 | disposition home or self-care (01) ==
LOC: EC 20:21
DX: N39.0 Urinary tract infection, site not specified (principal); Z91.040 Latex allergy status; Z87.442 Personal history of urinary calculi; Z79.899 Other long term (current) drug therapy
CPT/HCPCS: 99284; 96374; 36415; 80053; 82150; 83690; 85025; 81001; 87086; 74000; J2405; S0119

== ENCOUNTER → 2017-02-04 | Outpatient (CLI) | payer MEDICARE, OTHER ==
--- NOTE | 2017-02-04 08:04 | US ---
EXAMINATION TYPE: US abdomen complete DATE OF EXAM: 02/04/2017 COMPARISON: Previous study dated 01/02/2017 CLINICAL HISTORY: Abd pain R10.13, R11.0 Nausea. Lower abd pain EXAM MEASUREMENTS: Liver Length: 11.7 cm Gallbladder Wall: 0.2 cm CBD: 0.3 cm Spleen: 8.7 cm Right Kidney: 7.2 x 5.3 x 4.4 cm Left Kidney: 6.4 x 3.9 x 4.1 cm Limited exam due to overlying bowel gas Pancreas: Obscured by bowel gas Liver: Left lobe not well seen due to overlying bowel gas. Portions seen appears course. Gallbladder: wnl Evidence for sonographic Smart's sign: neg. CBD: wnl Spleen: wnl Right Kidney: Suboptimal visualization due to bowel gas Left Kidney: Moderate hydronephrosis seen Upper IVC: not well visualized due to overlying bowel gas. Abd Aorta: Prox not seen due to overlying bowel gas Incidental finding: Large cystic appearing lesion seen in lower abd/pelvic = 20.7 x 12.6 x 9.2 cm, un able to determine origin. The pancreas is not visualized. The liver is normal in size. The left lobe incompletely visualized. The gallbladder is normal without evidence of cholelithiasis. The gallbladder wall measures 2 mm. Thi s common hepatic duct measures 3 mm. There is no sonographic Smart's sign. The spleen is normal in size. Limited views of the right kidney are unremarkable. There is moderate hydronephrosis on the left. Limited views of the aorta and IVC are unremarkable. IMPRESSION: 1. LIMITED EXAMINATION. 2. LEFT-SIDED HYDRONEPHROSIS.
== END | disposition home or self-care (01) ==
LOC: RADUSWWP 06:55
PROVIDERS: ATTEND Family Medicine
DX: N13.30 Unspecified hydronephrosis (principal)
CPT/HCPCS: 76700

== ENCOUNTER 2017-02-19 16:37 | Observation (INO) | payer MEDICARE, OTHER ==
[2017-02-19] MEDS ORDERED: SODIUM CHLORIDE 0.9% 1,000 ML IV STA (17:17)
[2017-02-19] MEDS ORDERED: MORPHINE SULFATE 2 MG/ML SYRINGE IVP ONE (17:20)
--- NOTE | 2017-02-19 17:23 | ED ---
Chest Pain HPI - General Chief Complaint: Chest Pain Stated Complaint: Chest Pain Time Seen by Provider: 02/19/17 17:08 Source: patient, RN notes reviewed Mode of arrival: wheelchair Limitations: physical limitation - History of Present Illness Initial Comments: Patient is a 26-year-old female presents to the emergency room for evaluation of chest pain. Patient states in having on and off chest pain for the past 2 months. Patient states the chest pains been worse. Patient states she's having a midsternal squeezing pain. Patient states she feels like she is short of breath. Patient states pain is worse and she takes a deep breath. Patient states she feels like her heart is racing of her chest. Patient states she has mentioned this chest pain to her primary care provider does not have an appointment with lighting specialist until 02/24/17. Patient states since chest pain worsened today she thought she should be evaluated right away. Patient denies fevers or chills. Patient states she feels nauseous. Patient denies vomiting. Patient denies abdominal pain. Patient denies headache. Patient states she feels slightly dizzy. Patient denies recent heavy lifting or changes in physical activity. - Related Data Home Medications Medication Instructions Recorded Confirmed Metoprolol Tartrate [Lopressor] 12.5 mg PO BID 01/31/17 02/19/17 Allergies Allergy/AdvReac Type Severity Reaction Status Date / Time latex Allergy Fever from Verified 02/19/17 16:45 cath Review of Systems ROS Statement: Those systems with pertinent positive or pertinent negative responses have been documented in the HPI. ROS Other: All systems not noted in ROS Statement are negative. EKG Findings - EKG Comments: EKG Findings:: EKG at 1648: Sinus tachycardia, ventricular rate 111 bpm, LA interval 146, QS duration 78, QT/QTC 340/462 ms. 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 Past Anesthesia/Blood Transfusion Reactions: No Reported Reaction Past Psychological History: No Psychological Hx Reported Smoking Status: Never smoker Past Alcohol Use History: None Reported Past Drug Use History: None Reported - Past Family History Mother Family Medical History: Cancer Additional Family Medical History / Comment(s): grandparents - lung General Exam - General Exam Comments Initial Comments: Sitting in exam room, no acute distress. Limitations: physical limitation General appearance: alert, in no apparent distress Head exam: Present: atraumatic, normocephalic, normal inspection Eye exam: Present: normal appearance ENT exam: Present: normal exam Neck exam: Present: normal inspection Respiratory exam: Present: normal lung sounds bilaterally, chest wall tenderness (Reproducible midsternal chest wall tenderness.). Absent: respiratory distress Cardiovascular Exam: Present: normal rhythm, tachycardia, normal heart sounds GI/Abdominal exam: Present: soft, normal bowel sounds. Absent: distended, tenderness, guarding, rebound, rigid Extremities exam: Present: normal inspection Back exam: Present: normal inspection Neurological exam: Present: alert, oriented X3, CN II-XII intact, normal gait Psychiatric exam: Present: normal affect, normal mood Skin exam: Present: warm, dry, intact, normal color. Absent: rash Course Vital Signs 02/19/17 02/19/17 16:43 18:44 Temperature 98.8 F Pulse Rate 118 H 109 H Respiratory 20 16 Rate Blood Pressure 140/85 123/69 O2 Sat by Pulse 99 98 Oximetry Chest Pain MDM - MDM Patient is a 26-year-old female presents to the emergency room for evaluation of chest pain. Patient had an EKG done on 01/29/17. Noted changes since then on today's EKG. Inverted T waves noted today on lead III. Patient will be admitted for further evaluation and a cardiogram. Patient will be consulted with cardiology. Patient also noted to have urinary tract infection. Patient has history of recurrent urinary tract infections. Patient started on antibiotics. Disposition Clinical Impression: Atypical chest pain, UTI (urinary tract infection) Disposition: ADMITTED IP TO THIS HOSP Condition: Stable Decision Date: 02/19/17
[2017-02-19 17:53] LABS: Basophils % (A) 0 %; CH 25.1; CHCM 31.9; Eosinophils % (A) 0 %; HCT 35.7 % (34.0-46.0); HDW 2.78; HGB 11.4 gm/dL (11.4-16.0); Hypochromasia Slight; Luc # (Auto) 0.15; Luc % (Auto) 2; Lymphocytes # (A) 2.4 k/uL (1.0-4.8); Lymphocytes % (A) 26 %; MCH 25.3 pg (25.0-35.0); Mean Platelet Volume 6.8; Monocytes # (A) 0.5 k/uL (0-1.0); Monocytes % (A) 5 %; Neutrophils # (A) 6.2 k/uL (1.3-7.7); Neutrophils % (A) 66 %; RBC 4.52 m/uL (3.80-5.40); WBC 9.3 k/uL (3.8-10.6); WBC (Perox) 9.57
[2017-02-19 17:54] LABS: ALT 28 U/L (9-52); AST 15 U/L (14-36); Alkaline Phosphatase 68 U/L (38-126); Anion Gap 11 mmol/L; Blood Urea Nitrogen 19 mg/dL (7-17); Calcium 9.4 mg/dL (8.4-10.2); Carbon Dioxide 24 mmol/L (22-30); Chloride 106 mmol/L (98-107); Glucose 86 mg/dL (74-99); Non-African American GFR(MDRD) >60 (>60 ml/min/1.73 sqM); Potassium 3.6 mmol/L (3.5-5.1); Sodium 141 mmol/L (137-145); Total Bilirubin 0.2 mg/dL (0.2-1.3); Total Protein 7.6 g/dL (6.3-8.2)
[2017-02-19 18:03] LABS: Prothrombin Time 10.1 sec (9.0-12.0)
[2017-02-19 18:06] LABS: Creatine Kinase 39 U/L (30-135)
[2017-02-19 18:08] LABS: Bacteria,Urine Occasional /hpf; Mucus,Urine Rare /hpf
--- NOTE | 2017-02-19 18:18 | XR ---
EXAMINATION TYPE: XR chest 2V DATE OF EXAM: 02/19/2017 COMPARISON: 01/29/2017 HISTORY: Chest pain TECHNIQUE: Frontal and lateral views of the chest are obtained. FINDINGS: Heart and mediastinum are normal. Lungs are clear. Diaphragm is normal. There are chest le ads. Bony thorax is intact. There is a thoracic scoliotic deformity noted. IMPRESSION: No active cardiopulmonary disease. Normal heart. Ventriculoperitoneal shunt catheter not ed. No change.
[2017-02-19 18:19] LABS: Creatine Kinase MB <0.2 ng/mL (0.0-2.4); Troponin I <0.012 ng/mL (0.000-0.034)
[2017-02-19 18:30] LABS: Appearance,Urine Cloudy (Clear); Bilirubin,Urine Negative (Negative); Glucose,Urine (UA) Negative (Negative); Ketones,Urine Negative (Negative); Leukocyte Esterase,Urine Large (Negative); Nitrite,Urine Positive (Negative); Particle Count 39446; Protein,Urine 1+ (Negative); RBC,Urine 1 /hpf (0-5); Specific Gravity,Urine 1.017 (1.001-1.035); Squamous Epithelial Cell,Urine 3 /hpf (0-4); UA Billing (MACRO vs. MICRO) MICRO; Urobilinogen,Urine <2.0 mg/dL (<2.0); WBC,Urine 160 /hpf (0-5)
[2017-02-19] MEDS ORDERED: CIPROFLOXACIN HCL 500 MG TAB PO STA (19:01)
[2017-02-19] MEDS ORDERED: ACETAMINOPHEN TAB 325 MG TAB PO PRN (19:13)
[2017-02-19] MEDS: SODIUM CHLORIDE 0.9% 1,000 ML IV SCH (19:25)
[2017-02-19 20:24] VITALS: BMI 24.9
[2017-02-19] MEDS: PHENAZOPYRIDINE 100 MG TAB PO SCH (21:15)
[2017-02-19] MEDS: METOPROLOL TARTRATE 12.5 MG TAB PO SCH (21:16)
--- NOTE | 2017-02-19 22:24 | P.HPIM ---
<Shanon Alcazar Maggy - Last Filed: 02/19/17 22:24> History of Present Illness H&P Date: 02/19/17 Chief Complaint: Chest pain/UTI This is a 26-year-old female patient of Dr. Edward with chronic stable medical conditions that include cerebral palsy, spina bifida. Patient presents to the emergency department with complaints of chest pain over the past 2 months. States chest pain relapses and remits and is characterized as a midsternal squeezing type pain, with shortness of breath and pain is worse when she takes a deep breath. Heart rate feels as though it's bracing out of her chest when this occurs. This complaint has been mentioned to her primary care physician and has an appointment with a whale fisherman on 02/24/2017. Additionally patient has a strong history of frequent UTIs and was found to have one on arrival . 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 Past Anesthesia/Blood Transfusion Reactions: No Reported Reaction Past Psychological History: No Psychological Hx Reported Smoking Status: Never smoker Past Alcohol Use History: None Reported Past Drug Use History: None Reported - Past Family History Mother Family Medical History: Cancer Additional Family Medical History / Comment(s): grandparents - lung Medications and Allergies Home Medications Medication Instructions Recorded Confirmed Type Metoprolol Tartrate [Lopressor] 12.5 mg PO BID 01/31/17 02/19/17 History Allergies Allergy/AdvReac Type Severity Reaction Status Date / Time latex Allergy Fever from Verified 02/19/17 16:45 cath Physical Exam Vitals: Vital Signs Temp Pulse Pulse Resp BP BP Pulse Ox 02/19/17 20:00 98.7 F 105 H 18 118/73 99 02/19/17 18:44 109 H 16 123/69 98 02/19/17 16:43 98.8 F 118 H 20 140/85 99 Intake and Output 02/19/17 02/19/17 02/19/17 06:59 14:59 22:59 Other: Voiding Method Self-Catheterization Weight 65.771 kg Patient Weight 02/20/17 06:59 Weight 65.771 kg VITAL SIGNS: [Reviewed. BMI noted] GENERAL: [Average built, sitting up, comfortable]. EYES: [Pupils equal. Conjunctiva delia]l. HEENT: [External appearance of nose and ears normal, oral cavity grossly normal] . NECK: [JVD not raised; masses not palpable]. HEART: [First and second heart sounds are normal; no edema]. LUNGS:[ Respiratory rate normal; clear to auscultation]. ABDOMEN: [Soft, nontender, liver spleen not palpable, no masses palpable]. GENITOURINARY: Suprapubic tenderness/pain LYMPHATICS: [No lymph nodes palpable in the axilla and neck]. PSYCH: [Alert and oriented x3; mood and affect delia]l. MUSCULOSKELETAL: Left medial malleolus wound NEUROLOGICAL: [Minimal sensation in the left leg, power 2/5 in the right leg there is some preserved sensation]. MECHANICAL DESIGN ENGINEER STATEMENT: Patient was seen and examined by nurse practitioner Shanon Alcazar in all elements of the case discussed with attending Dr. Ames. Results CBC & Chem 7: 02/19/17 17:33 02/19/17 17:33 Labs: Abnormal Lab Results - Last 24 Hours (Table) 02/19/17 02/19/17 02/19/17 Range/Units 17:33 17:33 17:50 MCV 79.0 L (80.0-100.0) fL BUN 19 H (7-17) mg/dL Urine Appearance Cloudy H (Clear) Urine Protein 1+ H (Negative) Urine Nitrite Positive H (Negative) Ur Leukocyte Esterase Large H (Negative) Urine WBC 160 H (0-5) /hpf Urine WBC Clumps Few H (None) /hpf Urine Bacteria Occasional H (None) /hpf Urine Mucus Rare H (None) /hpf Thrombosis Risk Factor Assmnt - Choose All That Apply Each Factor Represents 1 point: Medical pt on bed rest Thrombosis Risk Factor Assessment Total Risk Factor Score: 1 Thrombosis Risk Factor Assessment Level: Low Risk Assessment and Plan Plan: ASSESSMENT: -Acute atypical chest pain -Acute on chronic UTI with cystitis, in a patient with no multiple recurrent UTIs from chronic underlying neurogenic bladder -Chronic spina bifida, causing paraplegia -Chronic left hydroureter and hydronephrosis -Left medial malleolus wound possibly decubitus ulcer present on admission appears red and infected. PLAN: Home medications ordered, IV fluids and antibiotics started, cardiology consulted. Plan of care discussed with the patient and she is in agreement. We 'll follow closely. <Forrest Ames - Last Filed: 02/20/17 11:34> Physical Exam Vitals: Vital Signs Temp Pulse Pulse Resp BP BP Pulse Ox 02/20/17 07:20 98.1 F 85 16 102/65 98 02/20/17 04:00 97.9 F 89 18 104/65 99 02/20/17 00:00 81 18 109/64 97 02/19/17 20:00 98.7 F 105 H 18 118/73 99 02/19/17 18:44 109 H 16 123/69 98 02/19/17 16:43 98.8 F 118 H 20 140/85 99 Intake and Output 02/19/17 02/20/17 02/20/17 22:59 06:59 14:59 Output Total 700 Balance -700 Output: Urine 700 Other: Voiding Method Self-Catheterization Self-Catheterization Self-Catheterization Weight 65.771 kg Results CBC & Chem 7: 02/19/17 17:33 02/19/17 17:33 Labs: Abnormal Lab Results - Last 24 Hours (Table) 02/19/17 02/19/17 02/19/17 Range/Units 17:33 17:33 17:50 MCV 79.0 L (80.0-100.0) fL BUN 19 H (7-17) mg/dL Urine Appearance Cloudy H (Clear) Urine Protein 1+ H (Negative) Urine Nitrite Positive H (Negative) Ur Leukocyte Esterase Large H (Negative) Urine WBC 160 H (0-5) /hpf Urine WBC Clumps Few H (None) /hpf Urine Bacteria Occasional H (None) /hpf Urine Mucus Rare H (None) /hpf Assessment and Plan Plan: Attending note. Date of service-02/19/2017 This patient was seen and examined by me . I reviewed the note of my nurse practitioner, Ms. Alcazar. Discussed with her, additional findings as below. Patient well known to me. Admitted with sharp left sided chest pain. Pain was a bit worse with moving. Sometimes a deep breath. Sharp in nature no radiation. No dizziness and lightheadedness. On examination: Lungs are clear, cardiovascular first seconds are normal Investigations: Troponin 3 negative, normal white count, EKG sinus tachycardia, d-dimer normal Assessment and plan: Left anterior chest wall pain, likely musculoskeletal may be an element of pleurisy probably viral Left medial malleolus wound chronic unchanged from baseline Cardiology is consulted. We will await their opinion. Care was discussed with the patient
[2017-02-19 23:42] LABS: Creatine Kinase 34 U/L (30-135)
[2017-02-19 23:55] LABS: Creatine Kinase MB <0.2 ng/mL (0.0-2.4); Troponin I <0.012 ng/mL (0.000-0.034)
[2017-02-20] MEDS: MORPHINE SULFATE 2 MG/ML SYRINGE IVP PRN ×2 (00:09→06:14)
[2017-02-20 06:13] LABS: Cholesterol 125 mg/dL (<200); HDL Cholesterol 41 mg/dL (40-60)
[2017-02-20 06:18] LABS: Creatine Kinase 31 U/L (30-135)
[2017-02-20 06:30] LABS: Creatine Kinase MB <0.2 ng/mL (0.0-2.4); Troponin I <0.012 ng/mL (0.000-0.034)
[2017-02-20 07:21] VITALS: RESP 16
[2017-02-20] MEDS ORDERED: ASPIRIN 325 MG TAB PO SCH (09:00)
[2017-02-20] MEDS ORDERED: CIPROFLOXACIN HCL 500 MG TAB PO SCH (09:00)
[2017-02-20] MEDS: PHENAZOPYRIDINE 100 MG TAB PO SCH (10:59)
[2017-02-20] MEDS: METOPROLOL TARTRATE 12.5 MG TAB PO SCH (11:00)
[2017-02-20] MEDS: SODIUM CHLORIDE 0.9% 1,000 ML IV SCH (11:07)
--- NOTE | 2017-02-20 11:27 | ECHOF ---
Referral Reason:pain MEASUREMENTS -------- HEIGHT: 162.6 cm WEIGHT: 65.8 kg BP: 104/65 RVIDd: 2.7 cm (< 3.3) IVSd: 0.9 cm (0.6 - 1.1) LVIDd: 4.0 cm (3.9 - 5.3) LVPWd: 0.8 cm (0.6 - 1.1) IVSs: 1.3 cm LVIDs: 2.7 cm LVPWs: 1.2 cm LA Diam: 3.0 cm (2.7 - 3.8) LAESV Index (A-L): 16.92 ml/m Ao Diam: 2.7 cm (2.0 - 3.7) AV Cusp: 1.9 cm (1.5 - 2.6) MV EXCURSION: 8.850 mm (> 18.000) MV EF SLOPE: 85 mm/s (70 - 150) EPSS: 0.9 cm MV E Anibal: 1.18 m/s MV DecT: 171 ms MV A Anibal: 0.81 m/s MV E/A Ratio: 1.46 RAP: 5.00 mmHg RVSP: 20.05 mmHg FINDINGS -------- Sinus rhythm. This was a technically good study. The left ventricular size is normal. Left ventricular wall thickness is normal. Overall left ventricular systolic function is normal with, an EF between 60 - 65 %. The right ventricle is normal in size and function. Normal LA size by volume 22+/-6 ml/m2. The right atrium is normal in size. The aortic valve is trileaflet and appears structurally normal. There is trace mitral regurgitation. Trace tricuspid regurgitation present. Right ventricular systolic pressure is normal at < 35 mmHg. Trace/mild (physiologic) pulmonic regurgitation. The aortic root size is normal. IVC Not well visulized. There is no pericardial effusion. CONCLUSIONS -------- 1. Sinus rhythm. 2. There is trace mitral regurgitation. 3. Trace tricuspid regurgitation present. 4. Right ventricular systolic pressure is normal at < 35 mmHg. 5. Trace/mild (physiologic) pulmonic regurgitation. 6. The aortic root size is normal. 7. IVC Not well visulized. 8. There is no pericardial effusion. 9. This was a technically good study. 10. The left ventricular size is normal. 11. Left ventricular wall thickness is normal. 12. Overall left ventricular systolic function is normal with, an EF between 60 - 65 %. 13. The right ventricle is normal in size and function. 14. Normal LA size by volume 22+/-6 ml/m2. 15. The right atrium is normal in size. 16. The aortic valve is trileaflet and appears structurally normal. SALES PERFORMANCE ANALYST: Shania Youngblood RDCS
--- NOTE | 2017-02-20 11:58 | P.CRDCN ---
History of Present Illness Consult date: 02/20/17 Consult reason: chest pain History of present illness: This is a 26 year old female who c/o chest burning associated with shortness of breath. The pain is described as midsternal and burning. She states she has been having this pain off and on for the past 2 months. It is not associated with activity or eating. The pain is worse when she takes a deep breath. She also complains of palpitations intermittently. She states the pain seems to subside when she lays down. She follows with Dr. Rosario in the office and has an appointment coming up next week. She denies nausea, vomiting or diaphoresis. She states when she gets the palpitations she does feel slightly dizzy. She currently takes metoprolol 12.5 mg by mouth twice a day for heart rate control. That is her only home medication. She has a history of spina bifida and cerebral palsy. She is also being treated for urinary tract infection at this time with IV antibiotics. Review of Systems REVIEW OF SYSTEMS: Patient denies any chest discomfort at this time. No shortness of breath. No diaphoresis. He denies headache, dizziness, blurred vision, double vision. No dyspnea on exertion. Patient denies any stomach discomfort. No nausea, vomiting. No hematochezia. No hematemesis. Denies any black stools or blood in his stools. No syncope. No palpitations. No cough. No recent fever or chills. Denies dysuria or hematuria. No muscle weakness or numbness. 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 Past Anesthesia/Blood Transfusion Reactions: No Reported Reaction Past Psychological History: No Psychological Hx Reported Smoking Status: Never smoker Past Alcohol Use History: None Reported Past Drug Use History: None Reported - Past Family History Mother Family Medical History: Cancer Additional Family Medical History / Comment(s): grandparents - lung Medications and Allergies Home Medications Medication Instructions Recorded Confirmed Type Metoprolol Succinate (ER) [Toprol 50 mg PO DAILY 02/20/17 02/20/17 History Xl] Allergies Allergy/AdvReac Type Severity Reaction Status Date / Time latex Allergy Fever from Verified 02/19/17 16:45 cath Physical Exam Vitals: Vital Signs Temp Pulse Pulse Resp BP BP Pulse Ox 02/20/17 07:20 98.1 F 85 16 102/65 98 02/20/17 04:00 97.9 F 89 18 104/65 99 02/20/17 00:00 81 18 109/64 97 02/19/17 20:00 98.7 F 105 H 18 118/73 99 02/19/17 18:44 109 H 16 123/69 98 02/19/17 16:43 98.8 F 118 H 20 140/85 99 Intake and Output 02/19/17 02/20/17 02/20/17 22:59 06:59 14:59 Output Total 700 Balance -700 Output: Urine 700 Other: Voiding Method Self-Catheterization Self-Catheterization Weight 65.771 kg GENERAL: This is a 26-year-old email in no apparent distress at the time of my examination. HEENT: Head is atraumatic, normocephalic. Pupils are equal, round. Sclerae anicteric. Conjunctivae are clear. Mucous membranes of the mouth are moist. Neck is supple. There is no jugular venous distention. No carotid bruit is heard. LUNGS: Clear to auscultation no wheezes, rales or rhonchi. Diminished. Mild chest wall tenderness is noted on palpation and with deep breathing. HEART: Regular rate and rhythm without murmurs, rubs or gallops. S1 and S2 heard. ABDOMEN: Soft, nontender. Bowel sounds are heard. No organomegaly noted. EXTREMITIES: 2+ peripheral pulses with trace peripheral edema to the left lower extremity, patient states this to be chronic due to comorbid condition and poor circulation. No calf tenderness noted. NEUROLOGIC: Patient is awake, alert and oriented x3. Results 02/19/17 17:33 02/19/17 17:33 Cardiac Enzymes 02/19/17 02/19/17 02/19/17 Range/Units 17:33 17:33 23:13 AST 15 (14-36) U/L CK-MB (CK-2) <0.2 <0.2 (0.0-2.4) ng/mL Troponin I <0.012 <0.012 (0.000-0.034) ng/mL 02/20/17 Range/Units 05:15 AST (14-36) U/L CK-MB (CK-2) <0.2 (0.0-2.4) ng/mL Troponin I <0.012 (0.000-0.034) ng/mL Coagulation 02/19/17 Range/Units 17:33 PT 10.1 (9.0-12.0) sec APTT 24.0 (22.0-30.0) sec Lipids 02/20/17 Range/Units 05:15 Triglycerides 72 (<150) mg/dL Cholesterol 125 (<200) mg/dL HDL Cholesterol 41 (40-60) mg/dL CBC 02/19/17 Range/Units 17:33 WBC 9.3 (3.8-10.6) k/uL RBC 4.52 (3.80-5.40) m/uL Hgb 11.4 (11.4-16.0) gm/dL Hct 35.7 (34.0-46.0) % Plt Count 404 (150-450) k/uL Comprehensive Metabolic Panel 02/19/17 Range/Units 17:33 Sodium 141 (137-145) mmol/L Potassium 3.6 (3.5-5.1) mmol/L Chloride 106 (98-107) mmol/L Carbon Dioxide 24 (22-30) mmol/L BUN 19 H (7-17) mg/dL Creatinine 0.64 (0.52-1.04) mg/dL Glucose 86 (74-99) mg/dL Calcium 9.4 (8.4-10.2) mg/dL AST 15 (14-36) U/L ALT 28 (9-52) U/L Alkaline Phosphatase 68 (38-126) U/L Total Protein 7.6 (6.3-8.2) g/dL Albumin 4.4 (3.5-5.0) g/dL Current Medications Generic Name Dose Route Start Last Admin Trade Name Freq PRN Reason Stop Dose Admin Acetaminophen 650 mg 02/19/17 19:13 02/19/17 20:30 Tylenol Tab PO 650 mg Q4HR PRN Administration MILD Pain Aspirin 325 mg 02/20/17 09:00 Aspirin PO DAILY GAVIN Ciprofloxacin 500 mg 02/20/17 09:00 Cipro PO Q12HR GAVIN Sodium Chloride 1,000 mls @ 100 mls/hr 02/19/17 19:15 02/19/17 19:25 Saline 0.9% IV 100 mls/hr .Q10H GAVIN Administration Metoprolol Tartrate 12.5 mg 02/19/17 21:00 02/19/17 21:16 Lopressor PO 12.5 mg BID GAVIN Administration Morphine Sulfate 4 mg 02/19/17 19:13 02/20/17 06:14 Morphine Sulfate (Inj) IVP 4 mg Q4HR PRN Administration Chest Pain Phenazopyridine HCl 100 mg 02/19/17 22:00 02/19/17 21:15 Pyridium PO 100 mg TID GAVIN Administration Intake and Output 02/19/17 02/20/17 02/20/17 22:59 06:59 14:59 Output Total 700 Balance -700 Output: Urine 700 Other: Voiding Method Self-Catheterization Self-Catheterization Weight 65.771 kg 02/19/17 17:33 02/19/17 17:33 - Imaging and Cardiology Echo: report reviewed (Trace mitral regurgitation, trace tricuspid regurgitation , right ventricular systolic pressure less than 35 mmHg, trace pulmonic regurg, ejection fraction 60-65%.) - EKG Interpretation EKG: normal QRS (Transient T-wave inversions in lead 3), normal ST/T EKG shows: tachycardia Assessment and Plan Plan: ASSESSMENT 1. Chest pain, atypical and not suggestive of ACS 2. Sinus tachycardia 3. History of cerebral palsy and spina bifida PLAN We will repeat a 12-lead EKG, order an echocardiogram to assess LV function and we will adjust her dose of metoprolol. She currently takes metoprolol tartrate 12.5 mg by mouth twice a day we will change her to metoprolol succinate 50 mg by mouth daily. From a cardiac standpoint she can be discharged home to follow- up with Dr. Rosario at her next scheduled appointment on February 24. Nurse Practitioner note has been reviewed, I agree with a documented findings and plan of care. Patient was seen and examined.
[2017-02-20 12:18] VITALS: BP 110/67; PULSE 120; TEMP 98.3
[2017-02-20] MEDS ORDERED: METOPROLOL SUCCINATE (ER) 25 MG TAB.ER.24H PO ONE (13:00)
[2017-02-21] MEDS ORDERED: METOPROLOL SUCCINATE (ER) 50 MG TAB.ER.24H PO SCH (09:00)
--- NOTE | 2017-02-25 12:26 | DS ---
DATE OF ADMISSION: 02/19/2017 DATE OF DISCHARGE: 02/20/2017 FINAL DIAGNOSES: 1. Left anterior chest wall pain, likely musculoskeletal. 2. Chronic spina bifida causing paraplegia. 3. Chronic left hydroureter with hydronephrosis. 4. Chronic left medial malleolus wound, decubitus ulcer being followed as an outpatient. 5. Asymptomatic bacteruria. HOSPITAL COURSE: This patient presented with left anterior chest wall pain, felt to be musculoskeletal. Troponins were negative. Patient has had no urinary symptoms, hence the abnormal UA was not treated. Care was discussed with the patient. Patient does follow up with Dr. Edward for the left foot wound. DISCHARGE MEDICATIONS: 1. Toprol XL 50 mg p.o. daily. 2. Wound care to continue. Follow with Dr. Edward in [address] Rosario in 2 weeks. CONSULTATION: Dr. Rosario from Cardiology. Lungs are clear. CARDIOVASCULAR: First and second sounds are normal. [facility]
== END 2017-02-20 15:50 | disposition home or self-care (01) ==
LOC: EC 16:37 → 3OBS 19:09
PROVIDERS: ADMIT Hospitalist; ATTEND Hospitalist
DX: R07.89 Other chest pain (principal); N13.30 Unspecified hydronephrosis; R82.71 Bacteriuria; L89.529 Pressure ulcer of left ankle, unspecified stage; N31.9 Neuromuscular dysfunction of bladder, unspecified; R00.0 Tachycardia, unspecified; Q05.9 Spina bifida, unspecified; G80.9 Cerebral palsy, unspecified; Z87.440 Personal history of urinary (tract) infections; Z87.442 Personal history of urinary calculi; Z79.899 Other long term (current) drug therapy; Z98.2 Presence of cerebrospinal fluid drainage device; Z91.040 Latex allergy status
CPT/HCPCS: 96361 ×2; 96374 ×2; 99285 ×2; 93005; 96376; 36415; 93306; 85379; 80061; 80053; 82550 ×2; 82553 ×2; 83735; 84484 ×2; 85025; 85610; 85730; 81001; 81025; 87086; 87077; 87186; 71020; G0378 ×2; J2270 ×2

== ENCOUNTER 2017-07-09 22:13 | Emergency (ER) | payer MEDICARE, OTHER ==
[2017-07-09] MEDS ORDERED: SODIUM CHLORIDE 0.9% 1,000 ML IV STA (22:39)
--- NOTE | 2017-07-09 23:02 | ED ---
General Adult HPI - General Chief complaint: ENT Stated complaint: Chest Pain Time Seen by Provider: 07/09/17 22:26 Source: patient, family, RN notes reviewed Mode of arrival: ambulatory Limitations: no limitations - History of Present Illness Initial comments: This is a 26-year-old female who presents to the emergency department with chief complaint of sore throat and chest pain. Patient states that this afternoon her throat began to hurt. She states it felt like it was "on fire." Patient states that she has had a difficult time eating and drinking due to pain. She states that she has also been experiencing a sharp, stabbing chest pain located in the central chest. She states that it is worsened when she lays flat down and when she takes a deep breath. Patient states that she currently takes metoprolol 25 mg for tachycardia. Denies any associated nausea , vomiting, diaphoresis or dizziness. Denies fever, chills, chest pain, shortness of breath, abdominal pain, constipation or diarrhea, dysuria or hematuria, numbness or tingling, headache or vision changes. - Related Data Home Medications Medication Instructions Recorded Confirmed Metoprolol Tartrate [Lopressor] 25 mg PO BID 07/09/17 07/09/17 Allergies Allergy/AdvReac Type Severity Reaction Status Date / Time latex Allergy Fever from Verified 07/09/17 22:44 cath Review of Systems ROS Statement: Those systems with pertinent positive or pertinent negative responses have been documented in the HPI. ROS Other: All systems not noted in ROS Statement are negative. 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 Past Anesthesia/Blood Transfusion Reactions: No Reported Reaction Past Psychological History: No Psychological Hx Reported Smoking Status: Never smoker Past Alcohol Use History: None Reported Past Drug Use History: None Reported - Past Family History Mother Family Medical History: Cancer Additional Family Medical History / Comment(s): grandparents - lung General Exam - General Exam Comments Initial Comments: General: Awake and alert, well-developed; in no apparent distress. Pleasant and cooperative. HEENT: Head atraumatic, normocephalic. Pupils are equal, round and reactive to light. Extraocular movements intact. Oropharynx moist with mild erythema. No tonsillar enlargement or exudates. Neck: Supple. Normal ROM. Cardiovascular: Regular rhythm with elevated HR. No murmurs, rubs or gallops. Chest symmetrical. No tenderness on palpation of chest wall. Respiratory: Lungs clear to auscultation bilaterally. No wheezes, rales or rhonchi. Normal respiratory effort with no use of accessory muscles. Abdomen: Soft, non-tender, non-distended. No rigidity, rebound or guarding. Normal bowel sounds in all 4 quadrants. Skin: [place], warm and dry without rashes or lesions. Neurological: Alert and oriented x3. CN II-XII grossly intact. Speech is fluent and answers are appropriate. No focal neuro deficits. Psychiatric: Normal mood and affect. No overt signs of depression or anxiety noted. Limitations: no limitations Course Vital Signs 07/09/17 07/10/17 22:14 00:13 Temperature 98 F Pulse Rate 111 H 94 Respiratory 20 18 Rate Blood Pressure 131/92 108/68 O2 Sat by Pulse 99 100 Oximetry Medical Decision Making - Medical Decision Making this is a 26-year-old female who presented to the emergency department for evaluation of sore throat and chest pain. On reevaluation patient states that she is feeling better in regards to the chest pain but she still is experiencing a sore throat. EKG revealed a sinus tachycardia. Patient states that she does not have an elevated heart rate and takes metoprolol 25 mg daily for it. CBC and CMP were within normal limits however patient does have a microcytic anemia. Rapid strep was negative. D-dimer was 0.43. Patient will be discharged home with her condition follow up with her primary care provider. She is in agreement with plan and was in understanding. Questions were answered. - Lab Data Result diagrams: 07/09/17 23:04 07/09/17 23:04 Lab Results 07/09/17 07/09/17 07/09/17 Range/Units 23:04 23:04 23:04 WBC 10.0 (3.8-10.6) k/uL RBC 4.50 (3.80-5.40) m/uL Hgb 10.8 L (11.4-16.0) gm/dL Hct 34.5 (34.0-46.0) % MCV 76.6 L (80.0-100.0) fL MCH 24.0 L (25.0-35.0) pg MCHC 31.4 (31.0-37.0) g/dL RDW 16.4 H (11.5-15.5) % Plt Count 402 (150-450) k/uL Neutrophils % 54 % Lymphocytes % 39 % Monocytes % 5 % Eosinophils % 0 % Basophils % 1 % Neutrophils # 5.4 (1.3-7.7) k/uL Lymphocytes # 3.9 (1.0-4.8) k/uL Monocytes # 0.5 (0-1.0) k/uL Eosinophils # 0.0 (0-0.7) k/uL Basophils # 0.1 (0-0.2) k/uL Hypochromasia Slight Anisocytosis Slight Microcytosis Slight D-Dimer (<0.60) mg/L FEU Sodium 138 (137-145) mmol/L Potassium 3.8 (3.5-5.1) mmol/L Chloride 103 (98-107) mmol/L Carbon Dioxide 25 (22-30) mmol/L Anion Gap 10 mmol/L BUN 18 H (7-17) mg/dL Creatinine 0.72 (0.52-1.04) mg/dL Est GFR (MDRD) Af Amer >60 (>60 ml/min/1.73 sqM) Est GFR (MDRD) Non-Af >60 (>60 ml/min/1.73 sqM) Glucose 96 (74-99) mg/dL Calcium 9.6 (8.4-10.2) mg/dL Total Bilirubin 0.1 L (0.2-1.3) mg/dL AST 16 (14-36) U/L ALT 27 (9-52) U/L Alkaline Phosphatase 69 (38-126) U/L Total Protein 7.3 (6.3-8.2) g/dL Albumin 4.0 (3.5-5.0) g/dL Group A Strep Rapid Negative (Negative) 07/09/17 Range/Units 23:04 WBC (3.8-10.6) k/uL RBC (3.80-5.40) m/uL Hgb (11.4-16.0) gm/dL Hct (34.0-46.0) % MCV (80.0-100.0) fL MCH (25.0-35.0) pg MCHC (31.0-37.0) g/dL RDW (11.5-15.5) % Plt Count (150-450) k/uL Neutrophils % % Lymphocytes % % Monocytes % % Eosinophils % % Basophils % % Neutrophils # (1.3-7.7) k/uL Lymphocytes # (1.0-4.8) k/uL Monocytes # (0-1.0) k/uL Eosinophils # (0-0.7) k/uL Basophils # (0-0.2) k/uL Hypochromasia Anisocytosis Microcytosis D-Dimer 0.43 (<0.60) mg/L FEU Sodium (137-145) mmol/L Potassium (3.5-5.1) mmol/L Chloride (98-107) mmol/L Carbon Dioxide (22-30) mmol/L Anion Gap mmol/L BUN (7-17) mg/dL Creatinine (0.52-1.04) mg/dL Est GFR (MDRD) Af Amer (>60 ml/min/1.73 sqM) Est GFR (MDRD) Non-Af (>60 ml/min/1.73 sqM) Glucose (74-99) mg/dL Calcium (8.4-10.2) mg/dL Total Bilirubin (0.2-1.3) mg/dL AST (14-36) U/L ALT (9-52) U/L Alkaline Phosphatase (38-126) U/L Total Protein (6.3-8.2) g/dL Albumin (3.5-5.0) g/dL Group A Strep Rapid (Negative) Disposition Clinical Impression: Sore throat, Chest pain Disposition: HOME SELF-CARE Condition: Good Instructions: Pharyngitis (ED), Chest Pain (ED) Additional Instructions: Please follow up with primary care provider within 1-2 days. Return to emergency department if symptoms should worsen or any concerns arise. Referrals: Erasmo Edward DO [Primary Care Provider] - 1-2 days Time of Disposition: 00:29
[2017-07-09 23:18] LABS: Anisocytosis Slight; Basophils # (A) 0.1 k/uL (0-0.2); Basophils % (A) 1 %; CH 23.7; CHCM 31.1; Eosinophils % (A) 0 %; HCT 34.5 % (34.0-46.0); HDW 2.64; HGB 10.8 gm/dL (11.4-16.0); Hypochromasia Slight; Luc # (Auto) 0.16; Luc % (Auto) 2; Lymphocytes # (A) 3.9 k/uL (1.0-4.8); Lymphocytes % (A) 39 %; MCHC 31.4 g/dL (31.0-37.0); MCV 76.6 fL (80.0-100.0); Mean Platelet Volume 6.6; Microcytosis Slight; Monocytes # (A) 0.5 k/uL (0-1.0); Monocytes % (A) 5 %; Neutrophils # (A) 5.4 k/uL (1.3-7.7); Neutrophils % (A) 54 %; RDW 16.4 % (11.5-15.5); WBC (Perox) 10.16
--- NOTE | 2017-07-09 23:23 | XR ---
EXAM: XR Chest, 2 Views CLINICAL HISTORY: Reason: chest pain TECHNIQUE: Frontal and lateral views of the chest. COMPARISON: 02/19/17 two-view chest radiographs FINDINGS: Lungs: Stable, without new focal infiltrate. Pleural space: No pleural effusion or pneumothorax has developed. Heart: Stable and within normal limits. Mediastinum: Stable and within normal limits allowing for some distortion related to scoliosis. Bones/joints: S-shaped thoracic and upper lumbar scoliosis with previous upper lumbar fusion, stable. No acute displaced fracture. Tubes, lines and devices: Again present is a shunt catheter extending over the right lower neck, chest and right upper abdomen. IMPRESSION: No new acute intrathoracic abnormality is seen.
[2017-07-09 23:27] LABS: ALT 27 U/L (9-52); AST 16 U/L (14-36); Alkaline Phosphatase 69 U/L (38-126); Anion Gap 10 mmol/L; Blood Urea Nitrogen 18 mg/dL (7-17); Calcium 9.6 mg/dL (8.4-10.2); Carbon Dioxide 25 mmol/L (22-30); Chloride 103 mmol/L (98-107); Glucose 96 mg/dL (74-99); Non-African American GFR(MDRD) >60 (>60 ml/min/1.73 sqM); Potassium 3.8 mmol/L (3.5-5.1); Sodium 138 mmol/L (137-145); Total Bilirubin 0.1 mg/dL (0.2-1.3); Total Protein 7.3 g/dL (6.3-8.2)
[2017-07-10 00:14] VITALS: BP 108/68; PULSE 94; RESP 18
[2017-07-10] MEDS ORDERED: ACETAMINOPHEN TAB 500 MG TAB PO STA (00:16)
[2017-07-10 00:36] VITALS: TEMP 97.6
== END 2017-07-10 00:43 | disposition home or self-care (01) ==
LOC: EC 22:13
DX: J02.9 Acute pharyngitis, unspecified (principal); R07.9 Chest pain, unspecified; R00.0 Tachycardia, unspecified; Z79.899 Other long term (current) drug therapy; Z91.040 Latex allergy status
CPT/HCPCS: 36415; 71020; 80053; 85025; 85379; 87081; 87430; 93005; 96360; 96361; 99285

== ENCOUNTER 2017-08-28 20:06 | Emergency (ER) | payer MEDICARE, OTHER ==
[2017-08-28 20:10] VITALS: RESP 20; TEMP 98.1
[2017-08-28] MEDS ORDERED: SODIUM CHLORIDE 0.9% 1,000 ML IV ONE (22:13)
[2017-08-28] MEDS ORDERED: ONDANSETRON 4 MG/2 ML VIAL IVP STA (22:13)
--- NOTE | 2017-08-28 22:16 | ED ---
General Adult HPI - General Chief complaint: Nausea/Vomiting/Diarrhea Stated complaint: abdominal pain/poss pnueomina & uti Time Seen by Provider: 08/28/17 22:04 Source: patient Mode of arrival: wheelchair Limitations: no limitations - History of Present Illness Initial comments: Nedra is a 26-year-old female with past medical history spina bifida, she is wheelchair-bound she straight caths herself for urine multiple times daily. Patient presents to the emergency Department today with complaint of nausea, vomiting, abdominal pain and concern that she may have a urinary tract infection or pneumonia. Patient reports that she was in her usual state of health throughout the day. She ate a sandwich for dinner and straight cathed herself after eating. Patient reports that shortly afterward she developed nausea had waves of sweating followed by episodes of vomiting nonbloody nonbilious vomitus. Patient reports that after vomiting she had persistent nausea and didn't feel well. Patient reports she has had symptoms similar to this when she has had urinary tract infections and pneumonia in the past. She does report some lower abdominal discomfort is similar to previous urinary tract infections. Patient reports she has frequent urinary tract infections attributed to her self cathing. She reports that her most recent was 23 months ago and she was treated with oral antibiotics. - Related Data Home Medications Medication Instructions Recorded Confirmed Metoprolol Tartrate [Lopressor] 25 mg PO BID 07/09/17 08/28/17 Acetaminophen Tab [Tylenol Tab] 650 mg PO Q6H PRN 08/28/17 08/28/17 Docusate [Colace] 100 mg PO DAILY PRN 08/28/17 08/28/17 Previous Rx's Medication Instructions Recorded Sulfamethox-Tmp 800-160Mg [Bactrim 1 tab PO Q12HR #14 tab 08/29/17 DS 800-160 mg] Sulfamethox-Tmp 800-160Mg [Bactrim 1 tab PO Q12HR 7 Days #14 tab 08/29/17 DS 800-160 mg] Allergies Allergy/AdvReac Type Severity Reaction Status Date / Time latex Allergy Fever from Verified 08/28/17 22:44 cath Review of Systems ROS Statement: Those systems with pertinent positive or pertinent negative responses have been documented in the HPI. ROS Other: All systems not noted in ROS Statement are negative. Constitutional: Reports: chills ENT: Denies: throat pain Respiratory: Denies: cough, dyspnea Cardiovascular: Denies: chest pain, palpitations Endocrine: Reports: fatigue Gastrointestinal: Reports: abdominal pain, nausea, vomiting. 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 Past Anesthesia/Blood Transfusion Reactions: No Reported Reaction Past Psychological History: No Psychological Hx Reported Smoking Status: Never smoker Past Alcohol Use History: None Reported Past Drug Use History: None Reported - Past Family History Mother Family Medical History: Cancer Additional Family Medical History / Comment(s): grandparents - lung General Exam Limitations: no limitations General appearance: alert, in no apparent distress Head exam: Present: atraumatic, normocephalic Eye exam: Present: normal appearance ENT exam: Present: normal exam Neck exam: Present: normal inspection Respiratory exam: Present: normal lung sounds bilaterally. Absent: respiratory distress Cardiovascular Exam: Present: tachycardia GI/Abdominal exam: Present: soft, normal bowel sounds. Absent: distended, tenderness, guarding, rebound Rectal exam: Present: deferred Extremities exam: Present: normal inspection Back exam: Present: normal inspection Neurological exam: Present: alert, oriented X3, abnormal gait Psychiatric exam: Present: normal affect Skin exam: Present: warm, dry Course Vital Signs 08/28/17 08/28/17 08/29/17 20:08 23:01 00:01 Temperature 98.1 F Pulse Rate 108 H 106 H 112 H Respiratory 20 20 20 Rate Blood Pressure 133/90 131/88 127/81 O2 Sat by Pulse 98 99 100 Oximetry Medical Decision Making - Medical Decision Making patient was seen and evaluated History was obtained from the patient and medical record Labs and imaging were ordered Zofran was ordered for nausea patient with resolution of nausea after Zofran Urinalysis reveals UTI, review of previous urine cultures reveals staph epidermidis consistent with patient's self cathing. IV dose of Rocephin was ordered here as well as by mouth Bactrim for home. A urine culture was obtained for follow-up. Chest x-ray no acute findings Chest x-ray, lab and urinalysis findings were discussed with the patient. Patient agreeable to plan for treatment of UTI and discharge home All questions pertaining to care were answered to the best of my ability and the patient was discharged home in stable condition. - Lab Data Result diagrams: 08/28/17 22:25 08/28/17 22:25 Lab Results 08/28/17 08/28/17 08/28/17 Range/Units 21:05 21:05 22:25 WBC 9.1 (3.8-10.6) k/uL RBC 4.75 (3.80-5.40) m/uL Hgb 11.4 (11.4-16.0) gm/dL Hct 37.6 (34.0-46.0) % MCV 79.1 L (80.0-100.0) fL MCH 24.1 L (25.0-35.0) pg MCHC 30.4 L (31.0-37.0) g/dL RDW 15.3 (11.5-15.5) % Plt Count 458 H (150-450) k/uL Neutrophils % 54 % Lymphocytes % 40 % Monocytes % 4 % Eosinophils % 0 % Basophils % 1 % Neutrophils # 4.9 (1.3-7.7) k/uL Lymphocytes # 3.6 (1.0-4.8) k/uL Monocytes # 0.4 (0-1.0) k/uL Eosinophils # 0.0 (0-0.7) k/uL Basophils # 0.1 (0-0.2) k/uL Hypochromasia Marked Sodium (137-145) mmol/L Potassium (3.5-5.1) mmol/L Chloride (98-107) mmol/L Carbon Dioxide (22-30) mmol/L Anion Gap mmol/L BUN (7-17) mg/dL Creatinine (0.52-1.04) mg/dL Est GFR (MDRD) Af Amer (>60 ml/min/1.73 sqM) Est GFR (MDRD) Non-Af (>60 ml/min/1.73 sqM) Glucose (74-99) mg/dL Calcium (8.4-10.2) mg/dL Total Bilirubin (0.2-1.3) mg/dL AST (14-36) U/L ALT (9-52) U/L Alkaline Phosphatase (38-126) U/L Total Protein (6.3-8.2) g/dL Albumin (3.5-5.0) g/dL Urine Color Light Yellow Urine Appearance Cloudy H (Clear) Urine pH 6.0 (5.0-8.0) Ur Specific [place] 1.013 (1.001-1.035) Urine Protein 1+ H (Negative) Urine Glucose (UA) Negative (Negative) Urine Ketones Negative (Negative) Urine Blood Negative (Negative) Urine Nitrite Positive H (Negative) Urine Bilirubin Negative (Negative) Urine Urobilinogen <2.0 (<2.0) mg/dL Ur Leukocyte Esterase Large H (Negative) Urine RBC 7 H (0-5) /hpf Urine WBC 117 H (0-5) /hpf Urine WBC Clumps Many H (None) /hpf Ur Squamous Epith Cells 5 H (0-4) /hpf Amorphous Sediment Rare H (None) /hpf Urine Bacteria Occasional H (None) /hpf Urine HCG, Qual Not Detected (Not Detectd) 08/28/17 Range/Units 22:25 WBC (3.8-10.6) k/uL RBC (3.80-5.40) m/uL Hgb (11.4-16.0) gm/dL Hct (34.0-46.0) % MCV (80.0-100.0) fL MCH (25.0-35.0) pg MCHC (31.0-37.0) g/dL RDW (11.5-15.5) % Plt Count (150-450) k/uL Neutrophils % % Lymphocytes % % Monocytes % % Eosinophils % % Basophils % % Neutrophils # (1.3-7.7) k/uL Lymphocytes # (1.0-4.8) k/uL Monocytes # (0-1.0) k/uL Eosinophils # (0-0.7) k/uL Basophils # (0-0.2) k/uL Hypochromasia Sodium 143 (137-145) mmol/L Potassium 3.9 (3.5-5.1) mmol/L Chloride 105 (98-107) mmol/L Carbon Dioxide 28 (22-30) mmol/L Anion Gap 10 mmol/L BUN 16 (7-17) mg/dL Creatinine 0.70 (0.52-1.04) mg/dL Est GFR (MDRD) Af Amer >60 (>60 ml/min/1.73 sqM) Est GFR (MDRD) Non-Af >60 (>60 ml/min/1.73 sqM) Glucose 105 H (74-99) mg/dL Calcium 9.9 (8.4-10.2) mg/dL Total Bilirubin 0.1 L (0.2-1.3) mg/dL AST 16 (14-36) U/L ALT 23 (9-52) U/L Alkaline Phosphatase 71 (38-126) U/L Total Protein 7.6 (6.3-8.2) g/dL Albumin 4.3 (3.5-5.0) g/dL Urine Color Urine Appearance (Clear) Urine pH (5.0-8.0) Ur Specific [place] (1.001-1.035) Urine Protein (Negative) Urine Glucose (UA) (Negative) Urine Ketones (Negative) Urine Blood (Negative) Urine Nitrite (Negative) Urine Bilirubin (Negative) Urine Urobilinogen (<2.0) mg/dL Ur Leukocyte Esterase (Negative) Urine RBC (0-5) /hpf Urine WBC (0-5) /hpf Urine WBC Clumps (None) /hpf Ur Squamous Epith Cells (0-4) /hpf Amorphous Sediment (None) /hpf Urine Bacteria (None) /hpf Urine HCG, Qual (Not Detectd) Disposition Clinical Impression: UTI (urinary tract infection) Disposition: HOME SELF-CARE Condition: Good Instructions: Urinary Tract Infection in Women (ED), Kidney Infection (ED) Prescriptions: Sulfamethox-Tmp 800-160Mg [Bactrim DS 800-160 mg] 1 tab PO Q12HR 7 Days #14 tab Sulfamethox-Tmp 800-160Mg [Bactrim DS 800-160 mg] 1 tab PO Q12HR #14 tab Referrals: Erasmo Edward DO [Primary Care Provider] - 1-2 days
[2017-08-28 22:38] LABS: Basophils # (A) 0.1 k/uL (0-0.2); Basophils % (A) 1 %; Eosinophils % (A) 0 %; HCT 37.6 % (34.0-46.0); HGB 11.4 gm/dL (11.4-16.0); Hypochromasia Marked; Lymphocytes # (A) 3.6 k/uL (1.0-4.8); Lymphocytes % (A) 40 %; MCH 24.1 pg (25.0-35.0); MCHC 30.4 g/dL (31.0-37.0); MCV 79.1 fL (80.0-100.0); Mean Platelet Volume 6.4; Monocytes # (A) 0.4 k/uL (0-1.0); Monocytes % (A) 4 %; Neutrophils # (A) 4.9 k/uL (1.3-7.7); Neutrophils % (A) 54 %; Platelet Count 458 k/uL (150-450); RBC 4.75 m/uL (3.80-5.40); RDW 15.3 % (11.5-15.5); WBC 9.1 k/uL (3.8-10.6)
[2017-08-28 22:52] LABS: ALT 23 U/L (9-52); AST 16 U/L (14-36); Albumin 4.3 g/dL (3.5-5.0); Alkaline Phosphatase 71 U/L (38-126); Anion Gap 10 mmol/L; Blood Urea Nitrogen 16 mg/dL (7-17); Calcium 9.9 mg/dL (8.4-10.2); Carbon Dioxide 28 mmol/L (22-30); Chloride 105 mmol/L (98-107); Glucose 105 mg/dL (74-99); Potassium 3.9 mmol/L (3.5-5.1); Sodium 143 mmol/L (137-145); Total Bilirubin 0.1 mg/dL (0.2-1.3); Total Protein 7.6 g/dL (6.3-8.2)
[2017-08-28 22:53] LABS: Amorphous Sediment,Urine Rare /hpf; Appearance,Urine Cloudy (Clear); Bacteria,Urine Occasional /hpf; Bilirubin,Urine Negative (Negative); Blood,Urine Negative (Negative); Color,Urine Light Yellow; Glucose,Urine (UA) Negative (Negative); Ketones,Urine Negative (Negative); Leukocyte Esterase,Urine Large (Negative); Nitrite,Urine Positive (Negative); Protein,Urine 1+ (Negative); RBC,Urine 7 /hpf (0-5); Specific Gravity,Urine 1.013 (1.001-1.035); Squamous Epithelial Cell,Urine 5 /hpf (0-4); Urobilinogen,Urine <2.0 mg/dL (<2.0); WBC,Urine 117 /hpf (0-5)
[2017-08-28] MEDS ORDERED: cefTRIAXone IN SWFI 1,000 MG/10 ML SYRINGE IVP STA (23:37)
--- NOTE | 2017-08-28 23:58 | XR ---
EXAMINATION TYPE: XR chest 1V DATE OF EXAM: 08/28/2017 COMPARISON: 07/09/2017 HISTORY: Chest pain TECHNIQUE: Single frontal view of the chest is obtained. FINDINGS: There is no heart failure nor confluent pneumonic infiltrate. Ventriculoperitoneal shunt c atheter is noted. There is mild thoracic dextroscoliosis. Costophrenic angles are clear. IMPRESSION: No active cardiopulmonary disease. No change.
[2017-08-29 00:02] VITALS: BP 127/81; PULSE 112
== END 2017-08-29 00:25 | disposition home or self-care (01) ==
LOC: EC 20:06
DX: N39.0 Urinary tract infection, site not specified (principal); Z79.899 Other long term (current) drug therapy; Z91.040 Latex allergy status
CPT/HCPCS: 99284; 96374; 96375; 96361; 36415; 80053; 85025; 81001; 81025; 87086; 71045; J2405; J0696; 87077; 87186

== ENCOUNTER 2017-09-02 22:25 | Emergency (ER) | payer MEDICARE, OTHER ==
[2017-09-02] MEDS ORDERED: HYDROmorphone 2 MG/ML 1 ML SYRINGE IM STA (23:00)
--- NOTE | 2017-09-02 23:06 | ED ---
Extremity Problem HPI - General Chief complaint: Extremity Problem,Nontraumatic Stated complaint: Eval Left Hip Time Seen by Provider: 09/02/17 22:47 Source: patient, RN notes reviewed Mode of arrival: wheelchair Limitations: no limitations - History of Present Illness Initial comments: This is a 26-year-old female who presents to the emergency department with chief complaint of left hip pain. 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 She states that she deals with chronic pain of the left hip but that recently it has become worse. She states that tonight the pain was unbearable. She states that she contacted Dr. Edward who advised her to present to the emergency department for pain control. Patient denies any recent injuries. She states that she is having difficulty getting around and crawling due to the pain. Denies fever, chills, chest pain, shortness of breath, abdominal pain, nausea or vomiting, constipation or diarrhea, dysuria or hematuria, numbness or tingling or vision changes. - Related Data Home Medications Medication Instructions Recorded Confirmed Metoprolol Tartrate [Lopressor] 25 mg PO BID 07/09/17 08/28/17 Acetaminophen Tab [Tylenol Tab] 650 mg PO Q6H PRN 08/28/17 08/28/17 Docusate [Colace] 100 mg PO DAILY PRN 08/28/17 08/28/17 Previous Rx's Medication Instructions Recorded Sulfamethox-Tmp 800-160Mg [Bactrim 1 tab PO Q12HR #14 tab 08/29/17 DS 800-160 mg] Sulfamethox-Tmp 800-160Mg [Bactrim 1 tab PO Q12HR 7 Days #14 tab 08/29/17 DS 800-160 mg] Allergies Allergy/AdvReac Type Severity Reaction Status Date / Time latex Allergy Fever from Verified 09/02/17 22:29 cath Review of Systems ROS Statement: Those systems with pertinent positive or pertinent negative responses have been documented in the HPI. ROS Other: All systems not noted in ROS Statement are negative. 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 Past Anesthesia/Blood Transfusion Reactions: No Reported Reaction Past Psychological History: No Psychological Hx Reported Smoking Status: Never smoker Past Alcohol Use History: None Reported Past Drug Use History: None Reported - Past Family History Mother Family Medical History: Cancer Additional Family Medical History / Comment(s): grandparents - lung General Exam - General Exam Comments Initial Comments: General: Awake and alert, well-developed; in no apparent distress. HEENT: Head atraumatic, normocephalic. Pupils are equal, round and reactive to light. Extraocular movements intact. Oropharynx moist without erythema or exudate. Neck: Supple. Normal ROM. Cardiovascular: Regular rate and rhythm. No murmurs, rubs or gallops. Chest symmetrical. Respiratory: Lungs clear to auscultation bilaterally. No wheezes, rales or rhonchi. Normal respiratory effort with no use of accessory muscles. 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 Sensation is intact. Pulses are 2+ equal and palpable bilaterally. Skin: [place], warm and dry without rashes or lesions. Neurological: Alert and oriented x3. CN II-XII grossly intact. Speech is fluent and answers are appropriate. No focal neuro deficits. Psychiatric: Normal mood and affect. No overt signs of depression or anxiety noted. Limitations: no limitations Course Vital Signs 09/02/17 22:26 Temperature 98.0 F Pulse Rate 114 H Respiratory 20 Rate Blood Pressure 130/89 O2 Sat by Pulse 99 Oximetry Medical Decision Making - Medical Decision Making This is a 26-year-old female who presents to the emergency department with chief complaint of acute on chronic left hip pain. 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 Patient states that tonight her left hip pain became unbearable so she contacted Dr. Edward who advised her to present to the emergency department for pain control. Patient denies any injury, trauma or falls. Patient states that oral medications do not work well for her. She states that she has tried [place] and Tylenol with codeine in the past. Patient states that she does not have a local orthopedic doctor as they are unwilling to do her surgery. She states she will follow up with Dr. Edward tomorrow for follow-up. Patient given Dilaudid 1 mg in the emergency department. She is in no acute distress and vital signs are stable. She will be discharged home. She is in agreement with plan and voices understanding. All questions were answered. Disposition Clinical Impression: Left hip pain Disposition: HOME SELF-CARE Condition: Good Additional Instructions: Please follow up with primary care provider, Dr. Edward, tomorrow morning. May take Tylenol or Motrin as needed for returning pain. Return to emergency department if symptoms should worsen or any concerns arise. Referrals: Erasmo Edward DO [Primary Care Provider] - 1-2 days Time of Disposition: 23:05
[2017-09-02 23:40] VITALS: BP 105/82; PULSE 106; RESP 18; TEMP 98.2
== END 2017-09-02 23:40 | disposition home or self-care (01) ==
LOC: EC 22:25
DX: M25.552 Pain in left hip (principal); G89.29 Other chronic pain; Q68.8 Other specified congenital musculoskeletal deformities; Q05.9 Spina bifida, unspecified; Z79.899 Other long term (current) drug therapy; Z91.040 Latex allergy status; Z98.890 Other specified postprocedural states
CPT/HCPCS: 99283; 96372; J1170

== ENCOUNTER 2017-09-04 12:32 | Emergency (ER) | payer MEDICARE, OTHER ==
[2017-09-04 12:40] VITALS: RESP 16
--- NOTE | 2017-09-04 13:28 | ED ---
General Adult HPI - General Chief complaint: Extremity Problem,Nontraumatic Stated complaint: Chest Pain Time Seen by Provider: 09/04/17 13:06 Source: patient, RN notes reviewed, old records reviewed Mode of arrival: wheelchair Limitations: physical limitation - History of Present Illness Initial comments: Patient 26-year-old female significant past medical history for spinal bifida, tachycardia, who presents emergency room today with a chief complaint of increased left hip pain. 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 Does admit to chronic pain to this area. She seems to be getting worse this last week. She states that she has had pain that shoots from the left hip into the chest. She states this sharp stabbing type pain that comes and goes. Currently no chest pain at this time. States that the pain is worse with certain movements. She states she has to crawl around on the floor and this is when she usually feels the pain radiating up. Patient states she's had this before in the past with his chronic hip pain. Patient denies any new injury or trauma. She does not that she's been orthopedics in the past. She states that no one wanted to do anything because it was deteriorating. She does not that she was seen here in the emergency room for this such as 2 days ago. She states she was given a pain shot. She states she did well yesterday. She states the pain increased once again this morning. Patient also admits to history of urinary tract infection. She states she's currently on Bactrim. Patient denies any other complaints or symptoms. Patient denies any recent shortness of breath, back pain, abdominal pain, nausea or vomiting, numbness or tingling, headaches or visual changes, or any other complaints. - Related Data Home Medications Medication Instructions Recorded Confirmed Metoprolol Tartrate [Lopressor] 12.5 mg PO BID 07/09/17 09/04/17 Acetaminophen Tab [Tylenol Tab] 650 mg PO Q6H PRN 08/28/17 09/04/17 Docusate [Colace] 100 mg PO DAILY@1800 08/28/17 09/04/17 Sulfamethox-Tmp 800-160Mg [Bactrim 1 tab PO BID 09/02/17 09/04/17 DS 800-160 mg] Previous Rx's Medication Instructions Recorded Nitrofurantoin Monohyd/M-Cryst 100 mg PO Q12HR #14 cap 09/04/17 [Macrobid] Allergies Allergy/AdvReac Type Severity Reaction Status Date / Time latex Allergy Fever from Verified 09/04/17 13:10 cath Review of Systems ROS Statement: Those systems with pertinent positive or pertinent negative responses have been documented in the HPI. ROS Other: All systems not noted in ROS Statement are negative. 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 RESPIRATORY COORDINATOR shunt. Past Anesthesia/Blood Transfusion Reactions: No Reported Reaction Past Psychological History: No Psychological Hx Reported Smoking Status: Never smoker Past Alcohol Use History: None Reported Past Drug Use History: None Reported - Past Family History Mother Family Medical History: Cancer Additional Family Medical History / Comment(s): grandparents - lung General Exam - General Exam Comments Initial Comments: General: The patient is awake and alert, in no distress, and does not appear acutely ill. Eye: Pupils are equal, round and reactive to light, extra-ocular movements are intact. No nystagmus. There is normal conjunctiva bilaterally. No signs of icterus. Ears, nose, mouth and throat: There are moist mucous membranes and no oral lesions. Neck: The neck is supple, there is no tenderness or JVD. Cardiovascular: There is a regular rate and rhythm. No murmur, rub or gallop is appreciated. Respiratory: Lungs are clear to auscultation, respirations are non-labored, breath sounds are equal. No wheezes, stridor, rales, or rhonchi. Gastrointestinal: Soft, non-distended, non-tender abdomen without masses or organomegaly noted. There is no rebound or guarding present. No CVA tenderness. Bowel sounds are unremarkable. Musculoskeletal: Good range motion. Mild tenderness over the lateral aspect of left hip worse with movement. Sensation intact. Pulses equal bilaterally 2+. Neurological: A&O x 3. CN II-XII intact, There are no obvious motor or sensory deficits. Coordination appears grossly intact. Speech is normal. Skin: Skin is warm and dry and no rashes or lesions are noted. Psychiatric: Cooperative, appropriate mood & affect, normal judgment. Limitations: physical limitation Course Vital Signs 09/04/17 12:38 Temperature 99.3 F Pulse Rate 108 H Respiratory 16 Rate Blood Pressure 123/76 O2 Sat by Pulse 99 Oximetry EKG Findings - EKG Comments: EKG Findings:: EKG performed at 1343: Shows normal sinus rhythm at beats per minute. FL interval 138. QRS is 80. QT/QTc is 348/448. EKG compared to previous EKG on 07/09/2017 showing no acute changes. Medical Decision Making - Medical Decision Making Patient's urinalysis review does show evidence for urinary tract infection. Recent culture from August 28 was reviewed does show that is susceptible to Bactrim. She will be given dose of Rocephin here in the emergency room also double covered with Macrobid. Culture is pending on this urinalysis as well. Her chest pain is consistent with pain that she's had in the past with his chronic hip pain. She is feeling better after dose of Toradol here in emergency room. Patient advised that she needs follow-up family doctor for further pain medication other than Tylenol or ibuprofen. Patient also advised follow-up in orthopedic doctor for these symptoms. Patient to return for any other concerns. - Lab Data Lab Results 09/04/17 09/04/17 Range/Units 13:25 13:25 Urine Color Yellow Urine Appearance Turbid H (Clear) Urine pH 5.5 (5.0-8.0) Ur Specific [place] 1.011 (1.001-1.035) Urine Protein 1+ H (Negative) Urine Glucose (UA) Negative (Negative) Urine Ketones Negative (Negative) Urine Blood Negative (Negative) Urine Nitrite Negative (Negative) Urine Bilirubin Negative (Negative) Urine Urobilinogen <2.0 (<2.0) mg/dL Ur Leukocyte Esterase Small H (Negative) Urine RBC 13 H (0-5) /hpf Urine WBC 113 H (0-5) /hpf Urine WBC Clumps Few H (None) /hpf Ur Squamous Epith Cells 8 H (0-4) /hpf Urine Bacteria Occasional H (None) /hpf Urine Mucus Occasional H (None) /hpf Urine HCG, Qual Not Detected (Not Detectd) Disposition Clinical Impression: Chronic hip pain, UTI (urinary tract infection) Disposition: HOME SELF-CARE Condition: Good Instructions: Urinary Tract Infection in Women (ED) Additional Instructions: Please follow-up with the family doctor and orthopedic doctors as discussed. Please use antibiotics as prescribed and return to emergency room symptoms increase worsen. Prescriptions: Nitrofurantoin Monohyd/M-Cryst [Macrobid] 100 mg PO Q12HR #14 cap Referrals: Erasmo Edward DO [Primary Care Provider] - 1-2 days Time of Disposition: 14:54
[2017-09-04] MEDS ORDERED: KETOROLAC 60 MG/2 ML VIAL IM STA (13:29)
[2017-09-04 13:58] LABS: Appearance,Urine Turbid (Clear); Bacteria,Urine Occasional /hpf; Bilirubin,Urine Negative (Negative); Blood,Urine Negative (Negative); Color,Urine Yellow; Glucose,Urine (UA) Negative (Negative); Ketones,Urine Negative (Negative); Leukocyte Esterase,Urine Small (Negative); Mucus,Urine Occasional /hpf; Nitrite,Urine Negative (Negative); PH, Urine 5.5 (5.0-8.0); Protein,Urine 1+ (Negative); RBC,Urine 13 /hpf (0-5); Specific Gravity,Urine 1.011 (1.001-1.035); Squamous Epithelial Cell,Urine 8 /hpf (0-4); Urobilinogen,Urine <2.0 mg/dL (<2.0); WBC,Urine 113 /hpf (0-5)
--- NOTE | 2017-09-04 14:40 | XR ---
EXAMINATION TYPE: XR chest 2V DATE OF EXAM: 09/04/2017 COMPARISON: 08/28/2017 TECHNIQUE: PA and lateral views submitted. HISTORY: Chest pain FINDINGS: Postsurgical change involving the vertebral column. LINE CLEARANCE FOREMAN shunt catheter noted. Tip of the catheter appe ars to end in the right upper quadrant. There is limited inspiration and scoliosis of the spine. No pneumothorax or pleural effusion. No focal pneumonia. No overt congestion. Heart size stable.
[2017-09-04 14:57] VITALS: BP 101/61; PULSE 94; TEMP 98
== END 2017-09-04 15:03 | disposition home or self-care (01) ==
LOC: EC 12:32
DX: M25.552 Pain in left hip (principal); G89.29 Other chronic pain; N39.0 Urinary tract infection, site not specified; R07.9 Chest pain, unspecified; Z79.899 Other long term (current) drug therapy; Z91.040 Latex allergy status; Z98.2 Presence of cerebrospinal fluid drainage device; Z98.890 Other specified postprocedural states
CPT/HCPCS: 93005; 81001; 81025; 87086; 71046; 99284; 96372; J1885

== ENCOUNTER 2017-09-12 19:49 | Inpatient (IN) | payer MEDICARE, OTHER ==
[2017-09-12] MEDS ORDERED: SODIUM CHLORIDE 0.9% 1,000 ML IV STA ×3 (21:46→22:59)
[2017-09-12] MEDS ORDERED: cefTRIAXone IN SWFI 1,000 MG/10 ML SYRINGE IVP STA (21:46)
[2017-09-12] MEDS ORDERED: ACETAMINOPHEN IV (For NPO) 1,000 MG in EMPTY BAG 1 BAG IVPB STA (21:46)
[2017-09-12] MEDS ORDERED: ONDANSETRON 4 MG/2 ML VIAL IVP STA (21:49)
[2017-09-12 22:25] LABS: Anisocytosis Slight; Basophils % (A) 0 %; Eosinophils % (A) 0 %; HGB 10.2 gm/dL (11.4-16.0); Hypochromasia Slight; Lymphocytes # (A) 0.8 k/uL (1.0-4.8); Lymphocytes % (A) 15 %; MCH 24.1 pg (25.0-35.0); MCV 77.8 fL (80.0-100.0); Mean Platelet Volume 6.6; Microcytosis Slight; Monocytes # (A) 0.5 k/uL (0-1.0); Monocytes % (A) 9 %; Neutrophils # (A) 3.7 k/uL (1.3-7.7); Neutrophils % (A) 74 %; Platelet Count 335 k/uL (150-450); RBC 4.24 m/uL (3.80-5.40); RDW 16.1 % (11.5-15.5)
[2017-09-12 22:39] LABS: ALT 23 U/L (9-52); AST 22 U/L (14-36); Albumin 4.3 g/dL (3.5-5.0); Alkaline Phosphatase 66 U/L (38-126); Anion Gap 14 mmol/L; Blood Urea Nitrogen 14 mg/dL (7-17); Calcium 9.4 mg/dL (8.4-10.2); Carbon Dioxide 22 mmol/L (22-30); Chloride 106 mmol/L (98-107); Glucose 93 mg/dL (74-99); Magnesium 2.1 mg/dL (1.6-2.3); Phosphorus 3.4 mg/dL (2.5-4.5); Potassium 4.5 mmol/L (3.5-5.1); Sodium 142 mmol/L (137-145); Total Bilirubin 0.2 mg/dL (0.2-1.3); Total Protein 7.6 g/dL (6.3-8.2)
[2017-09-12 22:44] LABS: Appearance,Urine Cloudy (Clear); Bacteria,Urine Rare /hpf; Bilirubin,Urine Negative (Negative); Blood,Urine Negative (Negative); Color,Urine Yellow; Glucose,Urine (UA) Negative (Negative); Ketones,Urine Negative (Negative); Leukocyte Esterase,Urine Negative (Negative); Mucus,Urine Rare /hpf; Nitrite,Urine Negative (Negative); PH, Urine 6.5 (5.0-8.0); Protein,Urine Trace (Negative); RBC,Urine 7 /hpf (0-5); Specific Gravity,Urine 1.014 (1.001-1.035); Squamous Epithelial Cell,Urine 1 /hpf (0-4); WBC,Urine 49 /hpf (0-5)
--- NOTE | 2017-09-12 22:51 | XR ---
EXAMINATION TYPE: XR chest 2V DATE OF EXAM: 09/12/2017 COMPARISON: 09/04/2017 HISTORY: Weakness and fever TECHNIQUE: Frontal and lateral views of the chest are obtained. FINDINGS: There is no heart failure nor confluent pneumonic infiltrate. Costophrenic angles are aaron r. Heart size is normal. There are chest leads. Bony thorax is intact. Right side ventricular shunt c atheter is noted. IMPRESSION: No active cardiopulmonary disease. No change. Normal heart.
[2017-09-12] MEDS ORDERED: OSELTAMIVIR 75 MG CAP PO STA (22:56)
[2017-09-12] MEDS ORDERED: SODIUM CHLORIDE 0.9% 1,000 ML IV ONE (22:59)
--- NOTE | 2017-09-12 22:59 | ED ---
General Adult HPI - General Chief complaint: Nausea/Vomiting/Diarrhea Stated complaint: Vomiting Time Seen by Provider: 09/12/17 21:17 Source: patient, RN notes reviewed, old records reviewed Mode of arrival: wheelchair Limitations: no limitations - History of Present Illness Initial comments: This is a 26-year-old female to ER for evaluation. Patient presents with significant medical history. Patient is visits to the ER this week for multiple complaints. Patient has positive fever positive bowel pain and generalized weakness and not feeling well. Patient denies recent sick contacts aside from multiple ER visits. Patient does straight cath secondary to spina bifida, does have history of chronic urinary tract infections has been on Bactrim which she has been taking as directed. Patient denies any headache, no rash, and she does have occasional cough and sore throat - Related Data Home Medications Medication Instructions Recorded Confirmed Metoprolol Tartrate [Lopressor] 12.5 mg PO BID 07/09/17 09/12/17 Acetaminophen Tab [Tylenol Tab] 650 mg PO Q6H PRN 08/28/17 09/12/17 Docusate [Colace] 100 mg PO DAILY@1800 08/28/17 09/12/17 Sulfamethox-Tmp 800-160Mg [Bactrim 1 tab PO BID 09/02/17 09/12/17 DS 800-160 mg] Multivitamins, Thera [Multivitamin 1 tab PO DAILY 09/12/17 09/12/17 (formulary)] Allergies Allergy/AdvReac Type Severity Reaction Status Date / Time latex Allergy Fever from Verified 09/12/17 21:57 cath Review of Systems ROS Statement: Those systems with pertinent positive or pertinent negative responses have been documented in the HPI. ROS Other: All systems not noted in ROS Statement are negative. 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 Past Anesthesia/Blood Transfusion Reactions: No Reported Reaction Past Psychological History: No Psychological Hx Reported Smoking Status: Never smoker Past Alcohol Use History: None Reported Past Drug Use History: None Reported - Past Family History Mother Family Medical History: Cancer Additional Family Medical History / Comment(s): grandparents - lung General Exam Limitations: no limitations General appearance: alert, in no apparent distress Head exam: Present: atraumatic, normocephalic, normal inspection Eye exam: Present: normal appearance, PERRL, EOMI. Absent: scleral icterus, conjunctival injection, periorbital swelling ENT exam: Present: normal exam, mucous membranes moist Neck exam: Present: normal inspection. Absent: tenderness, meningismus, lymphadenopathy Respiratory exam: Present: normal lung sounds bilaterally. Absent: respiratory distress, wheezes, rales, rhonchi, stridor Cardiovascular Exam: Present: normal rhythm, tachycardia, normal heart sounds. Absent: systolic murmur, diastolic murmur, rubs, gallop, clicks GI/Abdominal exam: Present: soft, normal bowel sounds. Absent: distended, tenderness, guarding, rebound, rigid Extremities exam: Present: normal inspection, full ROM, normal capillary refill. Absent: tenderness, pedal edema, joint swelling, calf tenderness Back exam: Present: normal inspection Neurological exam: Present: alert, oriented X3, CN II-XII intact Psychiatric exam: Present: normal affect, normal mood Skin exam: Present: warm, dry, intact, normal color. Absent: rash Course Vital Signs 09/12/17 20:12 Temperature 100.6 F H Pulse Rate 134 H Respiratory 18 Rate Blood Pressure 127/76 O2 Sat by Pulse 100 Oximetry - Reevaluation(s) Reevaluation #1: 09/12/17 22:58 Patient is mildly improved with fever control and hydration Medical Decision Making - Medical Decision Making 26 female the ER for evaluation of fever, influenza, urinary tract infection is felt outpatient treatment, patient be admitted for IV antibiotics and monitoring of cardiopulmonary state - Lab Data Result diagrams: 09/12/17 22:07 09/12/17 22:07 Lab Results 09/12/17 09/12/17 09/12/17 Range/Units 22:07 22:07 22:07 WBC 5.0 (3.8-10.6) k/uL RBC 4.24 (3.80-5.40) m/uL Hgb 10.2 L (11.4-16.0) gm/dL Hct 33.0 L (34.0-46.0) % MCV 77.8 L (80.0-100.0) fL MCH 24.1 L (25.0-35.0) pg MCHC 31.0 (31.0-37.0) g/dL RDW 16.1 H (11.5-15.5) % Plt Count 335 (150-450) k/uL Neutrophils % 74 % Lymphocytes % 15 % Monocytes % 9 % Eosinophils % 0 % Basophils % 0 % Neutrophils # 3.7 (1.3-7.7) k/uL Lymphocytes # 0.8 L (1.0-4.8) k/uL Monocytes # 0.5 (0-1.0) k/uL Eosinophils # 0.0 (0-0.7) k/uL Basophils # 0.0 (0-0.2) k/uL Hypochromasia Slight Anisocytosis Slight Microcytosis Slight Sodium 142 (137-145) mmol/L Potassium 4.5 (3.5-5.1) mmol/L Chloride 106 (98-107) mmol/L Carbon Dioxide 22 (22-30) mmol/L Anion Gap 14 mmol/L BUN 14 (7-17) mg/dL Creatinine 0.60 (0.52-1.04) mg/dL Est GFR (MDRD) Af Amer >60 (>60 ml/min/1.73 sqM) Est GFR (MDRD) Non-Af >60 (>60 ml/min/1.73 sqM) Glucose 93 (74-99) mg/dL Plasma Lactic Acid Mauro 1.7 (0.7-2.0) mmol/L Calcium 9.4 (8.4-10.2) mg/dL Phosphorus 3.4 (2.5-4.5) mg/dL Magnesium 2.1 (1.6-2.3) mg/dL Total Bilirubin 0.2 (0.2-1.3) mg/dL AST 22 (14-36) U/L ALT 23 (9-52) U/L Alkaline Phosphatase 66 (38-126) U/L Total Protein 7.6 (6.3-8.2) g/dL Albumin 4.3 (3.5-5.0) g/dL Urine Color Urine Appearance (Clear) Urine pH (5.0-8.0) Ur Specific [place] (1.001-1.035) Urine Protein (Negative) Urine Glucose (UA) (Negative) Urine Ketones (Negative) Urine Blood (Negative) Urine Nitrite (Negative) Urine Bilirubin (Negative) Urine Urobilinogen (<2.0) mg/dL Ur Leukocyte Esterase (Negative) Urine RBC (0-5) /hpf Urine WBC (0-5) /hpf Ur Squamous Epith Cells (0-4) /hpf Urine Bacteria (None) /hpf Urine Mucus (None) /hpf Influenza Type A RNA (Not Detectd) Influenza Type B (PCR) (Not Detectd) 09/12/17 09/12/17 Range/Units 22:18 22:18 WBC (3.8-10.6) k/uL RBC (3.80-5.40) m/uL Hgb (11.4-16.0) gm/dL Hct (34.0-46.0) % MCV (80.0-100.0) fL MCH (25.0-35.0) pg MCHC (31.0-37.0) g/dL RDW (11.5-15.5) % Plt Count (150-450) k/uL Neutrophils % % Lymphocytes % % Monocytes % % Eosinophils % % Basophils % % Neutrophils # (1.3-7.7) k/uL Lymphocytes # (1.0-4.8) k/uL Monocytes # (0-1.0) k/uL Eosinophils # (0-0.7) k/uL Basophils # (0-0.2) k/uL Hypochromasia Anisocytosis Microcytosis Sodium (137-145) mmol/L Potassium (3.5-5.1) mmol/L Chloride (98-107) mmol/L Carbon Dioxide (22-30) mmol/L Anion Gap mmol/L BUN (7-17) mg/dL Creatinine (0.52-1.04) mg/dL Est GFR (MDRD) Af Amer (>60 ml/min/1.73 sqM) Est GFR (MDRD) Non-Af (>60 ml/min/1.73 sqM) Glucose (74-99) mg/dL Plasma Lactic Acid Mauro (0.7-2.0) mmol/L Calcium (8.4-10.2) mg/dL Phosphorus (2.5-4.5) mg/dL Magnesium (1.6-2.3) mg/dL Total Bilirubin (0.2-1.3) mg/dL AST (14-36) U/L ALT (9-52) U/L Alkaline Phosphatase (38-126) U/L Total Protein (6.3-8.2) g/dL Albumin (3.5-5.0) g/dL Urine Color Yellow Urine Appearance Cloudy H (Clear) Urine pH 6.5 (5.0-8.0) Ur Specific [place] 1.014 (1.001-1.035) Urine Protein Trace H (Negative) Urine Glucose (UA) Negative (Negative) Urine Ketones Negative (Negative) Urine Blood Negative (Negative) Urine Nitrite Negative (Negative) Urine Bilirubin Negative (Negative) Urine Urobilinogen 2.0 (<2.0) mg/dL Ur Leukocyte Esterase Negative (Negative) Urine RBC 7 H (0-5) /hpf Urine WBC 49 H (0-5) /hpf Ur Squamous Epith Cells 1 (0-4) /hpf Urine Bacteria Rare H (None) /hpf Urine Mucus Rare H (None) /hpf Influenza Type A RNA Detected H (Not Detectd) Influenza Type B (PCR) Not Detected (Not Detectd) - Radiology Data Radiology results: report reviewed (Chest x-rays negative for acute disease), image reviewed Disposition Clinical Impression: Fever, Failure of outpatient treatment, UTI (urinary tract infection), Influenza Disposition: ADMITTED IP TO THIS [facility] Condition: Fair Referrals: Erasmo Edward DO [Primary Care Provider] - 1-2 days
[2017-09-13] MEDS: ACETAMINOPHEN TAB 325 MG TAB PO PRN ×3 (01:31→18:26)
[2017-09-13] MEDS ORDERED: ONDANSETRON 4 MG/2 ML VIAL IVP PRN (09:22)
[2017-09-13] MEDS: cefTRIAXone IN SWFI 1,000 MG/10 ML SYRINGE IVP SCH ×2 (09:34→21:31)
[2017-09-13] MEDS: OSELTAMIVIR 75 MG CAP PO SCH ×2 (09:48→21:31)
[2017-09-13] MEDS: METOPROLOL TARTRATE 12.5 MG TAB PO SCH ×2 (09:48→21:31)
[2017-09-13] MEDS: MULTIVITAMINS, THERA 1 EACH TAB PO SCH (12:15)
[2017-09-13] MEDS ORDERED: DOCUSATE 100 MG CAP PO SCH (18:00)
[2017-09-13] MEDS ORDERED: IBUPROFEN 400 MG TAB PO PRN (20:20)
--- NOTE | 2017-09-13 22:44 | P.HPIM ---
History of Present Illness H&P Date: 09/13/17 Chief Complaint: fever Date of service-09/13/2017 History of presenting complaint: This is a pleasant [address] Edward was chronic stable medical conditions include chronic spina bifida causing paraplegia. Chronic neurogenic bladder causing recurrent UTIs and patient does self-catheterization, GERD, chronic left hydroureter and hydronephrosis. Patient presents to the ER with 1 day history of having fever chills sore throat some abdominal discomfort. Having some nausea vomiting. Patient's at the bedside. Feeling weak and tired. Patient got chronic paraplegia. Recently from the ER being treated for UTI with Bactrim. Appetite is gone down. Feeling tired and achy. Slight headache. No neck stiffness. No photophobia. GEN.: Tired and weak fever chills EYES: None HEENT: Sore throat NECK: None RESPIRATORY: None CARDIOVASCULAR: None GASTROINTESTINAL: As above GENITOURINARY: As above MUSCULOSKELETAL: None LYMPHATICS: None HEMATOLOGICAL: None PSYCHIATRY: None NEUROLOGICAL: Chronic paraplegia Past medical history: Spina bifida causing chronic paraplegia, chronic neurogenic bladder patient does self-catheterization multiple UTIs, GERD, chronic left hydroureter and hydronephrosis. [place] with left hip out of socket. 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 Does not smoke or drink alcohol. Family history: Grandparents had history of lung cancer VITAL SIGNS: 101.6, 118, 20, 101/51, 98% on 2 L GENERAL: Average built, laying in bed tired appearing. EYES: Pupils equal. Conjunctiva normal. HEENT: External appearance of nose and ears normal, oral cavity dry mucous membrane. NECK: JVD not raised; masses not palpable. HEART: First and second heart sounds are normal; no edema. LUNGS: Respiratory rate normal; mild crackles. ABDOMEN: Soft, nontender, liver spleen not palpable, no masses palpable. Patient currently has a Liu catheter LYMPHATICS: No lymph nodes palpable in the axilla and neck. PSYCH: Alert and oriented x3; mood and affect tired appearingl. NEUROLOGICAL: [Cranial nerves grossly intact; no facial asymmetry, paraplegia Investigations: White count 5, hemoglobin 10.2 with low MCV BMP normal Influenza a positive Checks [id number] normal Assessment: -Acute influenza A infection, causing sepsis, present on admission -Spina bifida causing chronic neurogenic bladder, requiring self-catheterization , and causing chronic paraplegia -Chronic left hydroureter and hydronephrosis -Chronic medical debility from above -Clinically dehydrated with persistent nausea vomiting not able to keep anything down. -Chronic recurrent UTIs from neurogenic bladder and self-catheterization Plan: Patient will be put on IV fluids, Tamiflu, diet as tolerated. Empirical antibiotic. Liu catheter for eyes and nose. Care was discussed with the patient and her at the bedside. Questions were answered. 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 Past Anesthesia/Blood Transfusion Reactions: No Reported Reaction Past Psychological History: No Psychological Hx Reported Additional Psychological History / Comment(s): S Smoking Status: Never smoker Past Alcohol Use History: None Reported Past Drug Use History: None Reported - Past Family History Mother Family Medical History: Cancer Additional Family Medical History / Comment(s): grandparents - lung Medications and Allergies Home Medications Medication Instructions Recorded Confirmed Type Metoprolol Tartrate [Lopressor] 12.5 mg PO BID 07/09/17 09/12/17 History Acetaminophen Tab [Tylenol Tab] 650 mg PO Q6H PRN 08/28/17 09/12/17 History Docusate [Colace] 100 mg PO DAILY@1800 08/28/17 09/12/17 History Sulfamethox-Tmp 800-160Mg [Bactrim 1 tab PO BID 09/02/17 09/12/17 History DS 800-160 mg] Multivitamins, Thera [Multivitamin 1 tab PO DAILY 09/12/17 09/12/17 History (formulary)] Allergies Allergy/AdvReac Type Severity Reaction Status Date / Time latex Allergy Fever from Verified 09/12/17 21:57 cath Results CBC & Chem 7: 09/12/17 22:07 09/12/17 22:07
[2017-09-13] MEDS: LACTATED RINGERS 1,000 ML IV SCH (23:36)
[2017-09-14] MEDS: OSELTAMIVIR 75 MG CAP PO SCH ×2 (07:37→21:54)
[2017-09-14] MEDS: METOPROLOL TARTRATE 12.5 MG TAB PO SCH ×2 (07:37→21:54)
[2017-09-14] MEDS: LACTATED RINGERS 1,000 ML IV SCH ×3 (07:38→23:55)
[2017-09-14 08:28] LABS: Anisocytosis Slight; Basophils % (A) 1 %; Eosinophils % (A) 0 %; HCT 32.1 % (34.0-46.0); HGB 9.4 gm/dL (11.4-16.0); Hypochromasia Marked; Lymphocytes # (A) 1.2 k/uL (1.0-4.8); Lymphocytes % (A) 43 %; MCH 23.6 pg (25.0-35.0); MCHC 29.2 g/dL (31.0-37.0); MCV 80.8 fL (80.0-100.0); Mean Platelet Volume 6.3; Monocytes # (A) 0.2 k/uL (0-1.0); Monocytes % (A) 9 %; Neutrophils # (A) 1.2 k/uL (1.3-7.7); Neutrophils % (A) 45 %; Platelet Count 241 k/uL (150-450); RBC 3.97 m/uL (3.80-5.40); RDW 16.3 % (11.5-15.5); WBC 2.7 k/uL (3.8-10.6)
[2017-09-14 08:41] LABS: Anion Gap 9 mmol/L; Blood Urea Nitrogen 6 mg/dL (7-17); Calcium 8.5 mg/dL (8.4-10.2); Carbon Dioxide 23 mmol/L (22-30); Chloride 107 mmol/L (98-107); Glucose 82 mg/dL (74-99); Sodium 139 mmol/L (137-145)
[2017-09-14] MEDS: MULTIVITAMINS, THERA 1 EACH TAB PO SCH (12:33)
--- NOTE | 2017-09-14 19:46 | P.PN ---
Progress Note - Text Progress Note Date: 09/14/17 Presenting complaint: Tired Interval history: This is a pleasant [address] Edward was chronic stable medical conditions include chronic spina bifida causing paraplegia. Chronic neurogenic bladder causing recurrent UTIs and patient does self-catheterization, GERD, chronic left hydroureter and hydronephrosis. Admitted with acute influenza A. Today-feels a bit better. Did tolerate a liquid diet. Feels a bit stronger. The sore throat is a bit improved Review of systems: Was done for constitutional, cardiovascular, GI, pulmonary. relevant finding as above Current medications are reviewed and include: IV ceftriaxone and Tamiflu, IV LR VITAL SIGNS: T-max 102.5 last night, afebrile today, 97, 18, 117/66, 99% room air GENERAL: Laying in bed more awake. EYES: Pupils equal. Conjunctiva normal. HEENT: External appearance of nose and ears normal, oral cavity dry mucous membrane. NECK: JVD not raised; masses not palpable. HEART: First and second heart sounds are normal; no edema. LUNGS: Respiratory rate normal; mild crackles. ABDOMEN: Soft, nontender, liver spleen not palpable, no masses palpable. Patient currently has a Liu catheter PSYCH: Alert and oriented x3; mood and affect tired appearingl. NEUROLOGICAL: [Cranial nerves grossly intact; no facial asymmetry, paraplegia Investigations: White count 2.7, hemoglobin 9.4, potassium 4 Influenza a positive Checks [id number] normal Assessment: -Acute influenza A infection, causing sepsis, present on admission, patient also on antibiotics to cover any bacterial component. Patient is improving slowly getting better -Spina bifida causing chronic neurogenic bladder, requiring self-catheterization , and causing chronic paraplegia -Chronic left hydroureter and hydronephrosis -Chronic medical debility from above -Clinically dehydrated with persistent nausea vomiting not able to keep anything down. -Chronic recurrent UTIs from neurogenic bladder and self-catheterization Plan: Continue current medication treatment plan. We'll keep the patient faces another 24 hours. Advance diet
[2017-09-14] MEDS ORDERED: cefTRIAXone IN SWFI 1,000 MG/10 ML SYRINGE IVP SCH (21:00)
[2017-09-15 07:24] VITALS: BP 115/78; PULSE 124; TEMP 99
[2017-09-15] MEDS: METOPROLOL TARTRATE 12.5 MG TAB PO SCH (07:59)
[2017-09-15] MEDS: LACTATED RINGERS 1,000 ML IV SCH (07:59)
[2017-09-15] MEDS: OSELTAMIVIR 75 MG CAP PO SCH (07:59)
[2017-09-15 08:51] LABS: Basophils % (A) 1 %; Eosinophils % (A) 0 %; HGB 10.5 gm/dL (11.4-16.0); Hypochromasia Moderate; Lymphocytes # (A) 1.8 k/uL (1.0-4.8); Lymphocytes % (A) 41 %; MCH 23.6 pg (25.0-35.0); MCHC 30.1 g/dL (31.0-37.0); MCV 78.3 fL (80.0-100.0); Mean Platelet Volume 6.6; Monocytes # (A) 0.2 k/uL (0-1.0); Monocytes % (A) 6 %; Neutrophils # (A) 2.2 k/uL (1.3-7.7); Neutrophils % (A) 51 %; Platelet Count 321 k/uL (150-450); RBC 4.47 m/uL (3.80-5.40); RDW 15.6 % (11.5-15.5); WBC 4.2 k/uL (3.8-10.6)
[2017-09-15 08:57] LABS: Anion Gap 11 mmol/L; Blood Urea Nitrogen 5 mg/dL (7-17); Calcium 8.6 mg/dL (8.4-10.2); Carbon Dioxide 28 mmol/L (22-30); Chloride 101 mmol/L (98-107); Glucose 98 mg/dL (74-99); Potassium 3.8 mmol/L (3.5-5.1); Sodium 140 mmol/L (137-145)
[2017-09-15 10:41] VITALS: RESP 18
[2017-09-15] MEDS: MULTIVITAMINS, THERA 1 EACH TAB PO SCH (12:59)
--- NOTE | 2017-09-16 19:25 | P.DS ---
Providers Date of admission: 09/12/17 22:59 Expected date of discharge: 09/15/17 Attending physician: Forrest Ames Primary care physician: Erasmo Edward [facility] Course: -Acute influenza A infection, causing sepsis, present on admission, patient also on antibiotics to cover any bacterial component. Patient is improving slowly getting better -Spina bifida causing chronic neurogenic bladder, requiring self-catheterization , and causing chronic paraplegia -Chronic left hydroureter and hydronephrosis -Chronic medical debility from above -Clinically dehydrated with persistent nausea vomiting not able to keep anything down. -Chronic recurrent UTIs from neurogenic bladder and self-catheterization Hospital course: Patient presented with acute influenza a causing sepsis improved well with IV fluids Tamiflu. Doing much better by the time of discharge. Tolerating a diet.. Afebrile.. On examination: Lungs-clear Abdomen soft nontender Psych AAO 3 Disposition home Patient Condition at Discharge: Fair Plan - Discharge Summary Discharge Rx Participant: No New Discharge Prescriptions: New Oseltamivir [Tamiflu] 75 mg PO Q12HR #10 cap Polyethylene Glycol 3350 [Miralax] 17 gm PO MOWEFR #1 packet Continue Metoprolol Tartrate [Lopressor] 12.5 mg PO BID Acetaminophen Tab [Tylenol] 650 mg PO Q6H PRN PRN Reason: Pain Sulfamethox-Tmp 800-160Mg [Bactrim DS 800-160 mg] 1 tab PO BID Multivitamins, Thera [Multivitamin (formulary)] 1 tab PO DAILY Discontinued Docusate [Colace] 100 mg PO DAILY@1800 Discharge Medication List Metoprolol Tartrate [Lopressor] 12.5 mg PO BID 07/09/17 [History] Acetaminophen Tab [Tylenol] 650 mg PO Q6H PRN 08/28/17 [History] Sulfamethox-Tmp 800-160Mg [Bactrim DS 800-160 mg] 1 tab PO BID 09/02/17 [History ] Multivitamins, Thera [Multivitamin (formulary)] 1 tab PO DAILY 09/12/17 [History ] Oseltamivir [Tamiflu] 75 mg PO Q12HR #10 cap 09/15/17 [Rx] Polyethylene Glycol 3350 [Miralax] 17 gm PO MOWEFR #1 packet 09/15/17 [Rx] Follow up Appointment(s)/Referral(s): Erasmo Edward DO [Primary Care Provider] - 09/23/17 10:00 am Patient Instructions/Handouts: Influenza (DC) Discharge Disposition: HOME SELF-CARE
== END 2017-09-15 13:40 | disposition home or self-care (01) | DRG 872 ==
LOC: EC 19:49 → 4MS4W 22:59
PROVIDERS: ADMIT Hospitalist; ATTEND Hospitalist
DX: A41.89 Other specified sepsis (principal); G82.20 Paraplegia, unspecified; N13.30 Unspecified hydronephrosis; N39.0 Urinary tract infection, site not specified; E86.0 Dehydration; Q05.9 Spina bifida, unspecified; J10.1 Influenza due to other identified influenza virus with other respiratory manifestations; K21.9 Gastro-esophageal reflux disease without esophagitis; N31.9 Neuromuscular dysfunction of bladder, unspecified; Z87.440 Personal history of urinary (tract) infections; Z87.442 Personal history of urinary calculi; Z98.2 Presence of cerebrospinal fluid drainage device; Z91.040 Latex allergy status; Z79.899 Other long term (current) drug therapy
CPT/HCPCS: 36415; 71046; 80048; 80053; 81001; 83605; 83735; 84100; 85025; 87040; 87086; 87502; 93005; 96361; 96365; 96375; 99285

== ENCOUNTER 2017-11-02 14:54 | Emergency (ER) | payer MEDICARE, OTHER ==
[2017-11-02] MEDS ORDERED: SODIUM CHLORIDE 0.9% 1,000 ML IV STA (15:25)
[2017-11-02] MEDS ORDERED: SODIUM CHLORIDE 0.9% 500 ML IV STA (15:25)
[2017-11-02] MEDS ORDERED: IPRATROPIUM-ALBUTEROL 3 ML NEB INHALATION STA (15:26)
[2017-11-02] MEDS ORDERED: MORPHINE SULFATE 4MG/4ML SYRG IVP STA (15:28)
[2017-11-02] MEDS ORDERED: METOPROLOL TARTRATE 5 MG/5 ML VIAL IVP STA (15:28)
[2017-11-02] MEDS ORDERED: methylPREDNISolone SOD SUCCI 125 MG/2 ML VIAL IV STA (15:29)
--- NOTE | 2017-11-02 15:32 | ED ---
General Adult HPI - General Chief complaint: Chest Pain Stated complaint: chest pain Time Seen by Provider: 11/02/17 15:01 Source: patient, RN notes reviewed, old records reviewed Mode of arrival: wheelchair Limitations: physical limitation - History of Present Illness Initial comments: This is a 19-year-old male to the female to the ER for evaluation of tachycardia. Patient was exposed to smoke earlier today, this was related to cigars that her neighbor was smoking. She states began to give her anxiety and rapid heart rate. Still continuing with rapid heart rate not significant shortness breath. Patient denying any chest pain. No other complaints - Related Data Home Medications Medication Instructions Recorded Confirmed Metoprolol Tartrate [Lopressor] 12.5 mg PO BID 07/09/17 09/12/17 Acetaminophen Tab [Tylenol] 650 mg PO Q6H PRN 08/28/17 09/12/17 Sulfamethox-Tmp 800-160Mg [Bactrim 1 tab PO BID 09/02/17 09/12/17 DS 800-160 mg] Multivitamins, Thera [Multivitamin 1 tab PO DAILY 09/12/17 09/12/17 (formulary)] Previous Rx's Medication Instructions Recorded Oseltamivir [Tamiflu] 75 mg PO Q12HR #10 cap 09/15/17 Polyethylene Glycol 3350 [Miralax] 17 gm PO MOWEFR #1 packet 09/15/17 Allergies Allergy/AdvReac Type Severity Reaction Status Date / Time latex Allergy Fever from Verified 11/02/17 14:58 cath Review of Systems ROS Statement: Those systems with pertinent positive or pertinent negative responses have been documented in the HPI. ROS Other: All systems not noted in ROS Statement are negative. 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 Past Anesthesia/Blood Transfusion Reactions: No Reported Reaction Past Psychological History: No Psychological Hx Reported Smoking Status: Never smoker Past Alcohol Use History: None Reported Past Drug Use History: None Reported - Past Family History Mother Family Medical History: Cancer Additional Family Medical History / Comment(s): grandparents - lung General Exam Limitations: physical limitation General appearance: alert, in no apparent distress Head exam: Present: atraumatic, normocephalic, normal inspection Eye exam: Present: normal appearance, PERRL, EOMI. Absent: scleral icterus, conjunctival injection, periorbital swelling ENT exam: Present: normal exam, mucous membranes moist Neck exam: Present: normal inspection. Absent: tenderness, meningismus, lymphadenopathy Respiratory exam: Present: normal lung sounds bilaterally. Absent: respiratory distress, wheezes, rales, rhonchi, stridor Cardiovascular Exam: Present: normal rhythm, tachycardia, normal heart sounds. Absent: systolic murmur, diastolic murmur, rubs, gallop, clicks GI/Abdominal exam: Present: soft, normal bowel sounds. Absent: distended, tenderness, guarding, rebound, rigid Extremities exam: Present: normal inspection, full ROM, normal capillary refill. Absent: tenderness, pedal edema, joint swelling, calf tenderness Back exam: Present: normal inspection Neurological exam: Present: alert, oriented X3, CN II-XII intact Psychiatric exam: Present: normal affect, normal mood Skin exam: Present: warm, dry, intact, normal color. Absent: rash Course Vital Signs 11/02/17 11/02/17 14:56 15:59 Temperature 99.5 F Pulse Rate 138 H 104 H Respiratory 24 16 Rate Blood Pressure 133/91 127/91 O2 Sat by Pulse 96 97 Oximetry - Reevaluation(s) Reevaluation #1: 11/02/17 16:42 Patient is feeling better currently heart rate is much improved EKG Findings - EKG Comments: EKG Findings:: EKG shows sinus tachycardia rate 123, PA 144, QRS 74, QTC 420 Medical Decision Making - Medical Decision Making 19 female the ER for evaluation tachycardia and difficulty breathing secondary to smoke exposure. Symptoms resolved. This time, patient also with positive UTI. We'll discharge home on antibiotics - Lab Data Result diagrams: 11/02/17 15:56 11/02/17 15:56 Lab Results 11/02/17 11/02/17 11/02/17 Range/Units 15:56 15:56 15:56 WBC 9.3 (3.8-10.6) k/uL RBC 5.21 (3.80-5.40) m/uL Hgb 13.6 D (11.4-16.0) gm/dL Hct 41.8 (34.0-46.0) % MCV 80.3 (80.0-100.0) fL MCH 26.1 (25.0-35.0) pg MCHC 32.5 (31.0-37.0) g/dL RDW 17.7 H (11.5-15.5) % Plt Count 392 (150-450) k/uL Neutrophils % 66 % Lymphocytes % 28 % Monocytes % 5 % Eosinophils % 0 % Basophils % 0 % Neutrophils # 6.1 (1.3-7.7) k/uL Lymphocytes # 2.6 (1.0-4.8) k/uL Monocytes # 0.4 (0-1.0) k/uL Eosinophils # 0.0 (0-0.7) k/uL Basophils # 0.0 (0-0.2) k/uL Anisocytosis Slight Microcytosis Slight Sodium 145 (137-145) mmol/L Potassium 3.9 (3.5-5.1) mmol/L Chloride 106 (98-107) mmol/L Carbon Dioxide 24 (22-30) mmol/L Anion Gap 15 mmol/L BUN 18 H (7-17) mg/dL Creatinine 0.70 (0.52-1.04) mg/dL Est GFR (CKD-EPI)AfAm >90 (>60 ml/min/1.73 sqM) Est GFR (CKD-EPI)NonAf >90 (>60 ml/min/1.73 sqM) Glucose 88 (74-99) mg/dL Calcium 10.3 H (8.4-10.2) mg/dL Phosphorus 3.9 (2.5-4.5) mg/dL Magnesium 1.9 (1.6-2.3) mg/dL Total Bilirubin 0.2 (0.2-1.3) mg/dL AST 17 (14-36) U/L ALT 20 (9-52) U/L Alkaline Phosphatase 69 (38-126) U/L Total Creatine Kinase 38 (30-135) U/L CK-MB (CK-2) 0.3 (0.0-2.4) ng/mL CK-MB (CK-2) Rel Index 0.8 Troponin I <0.012 (0.000-0.034) ng/mL Total Protein 8.2 (6.3-8.2) g/dL Albumin 4.6 (3.5-5.0) g/dL Urine Color Urine Appearance (Clear) Urine pH (5.0-8.0) Ur Specific [place] (1.001-1.035) Urine Protein (Negative) Urine Glucose (UA) (Negative) Urine Ketones (Negative) Urine Blood (Negative) Urine Nitrite (Negative) Urine Bilirubin (Negative) Urine Urobilinogen (<2.0) mg/dL Ur Leukocyte Esterase (Negative) Urine RBC (0-5) /hpf Urine WBC (0-5) /hpf Urine WBC Clumps (None) /hpf Ur Squamous Epith Cells (0-4) /hpf Amorphous Sediment (None) /hpf Urine Bacteria (None) /hpf 11/02/17 Range/Units 15:56 WBC (3.8-10.6) k/uL RBC (3.80-5.40) m/uL Hgb (11.4-16.0) gm/dL Hct (34.0-46.0) % MCV (80.0-100.0) fL MCH (25.0-35.0) pg MCHC (31.0-37.0) g/dL RDW (11.5-15.5) % Plt Count (150-450) k/uL Neutrophils % % Lymphocytes % % Monocytes % % Eosinophils % % Basophils % % Neutrophils # (1.3-7.7) k/uL Lymphocytes # (1.0-4.8) k/uL Monocytes # (0-1.0) k/uL Eosinophils # (0-0.7) k/uL Basophils # (0-0.2) k/uL Anisocytosis Microcytosis Sodium (137-145) mmol/L Potassium (3.5-5.1) mmol/L Chloride (98-107) mmol/L Carbon Dioxide (22-30) mmol/L Anion Gap mmol/L BUN (7-17) mg/dL Creatinine (0.52-1.04) mg/dL Est GFR (CKD-EPI)AfAm (>60 ml/min/1.73 sqM) Est GFR (CKD-EPI)NonAf (>60 ml/min/1.73 sqM) Glucose (74-99) mg/dL Calcium (8.4-10.2) mg/dL Phosphorus (2.5-4.5) mg/dL Magnesium (1.6-2.3) mg/dL Total Bilirubin (0.2-1.3) mg/dL AST (14-36) U/L ALT (9-52) U/L Alkaline Phosphatase (38-126) U/L Total Creatine Kinase (30-135) U/L CK-MB (CK-2) (0.0-2.4) ng/mL CK-MB (CK-2) Rel Index Troponin I (0.000-0.034) ng/mL Total Protein (6.3-8.2) g/dL Albumin (3.5-5.0) g/dL Urine Color Yellow Urine Appearance Cloudy H (Clear) Urine pH 6.5 (5.0-8.0) Ur Specific [place] 1.012 (1.001-1.035) Urine Protein 1+ H (Negative) Urine Glucose (UA) Negative (Negative) Urine Ketones Negative (Negative) Urine Blood Trace H (Negative) Urine Nitrite Positive H (Negative) Urine Bilirubin Negative (Negative) Urine Urobilinogen <2.0 (<2.0) mg/dL Ur Leukocyte Esterase Large H (Negative) Urine RBC 7 H (0-5) /hpf Urine WBC 171 H (0-5) /hpf Urine WBC Clumps Rare H (None) /hpf Ur Squamous Epith Cells 1 (0-4) /hpf Amorphous Sediment Occasional H (None) /hpf Urine Bacteria Rare H (None) /hpf - Radiology Data Radiology results: report reviewed (Chest x-rays negative for acute disease), image reviewed Disposition Clinical Impression: UTI (urinary tract infection), Bronchospasm, Tachycardia Disposition: HOME SELF-CARE Condition: Good Instructions: Bronchospasm (ED), Tachycardia (ED) Referrals: Erasmo Edward DO [Primary Care Provider] - 1-2 days
[2017-11-02 16:00] VITALS: RESP 16
[2017-11-02 16:09] LABS: Anisocytosis Slight; Basophils % (A) 0 %; Eosinophils % (A) 0 %; HCT 41.8 % (34.0-46.0); Lymphocytes # (A) 2.6 k/uL (1.0-4.8); Lymphocytes % (A) 28 %; MCH 26.1 pg (25.0-35.0); MCHC 32.5 g/dL (31.0-37.0); MCV 80.3 fL (80.0-100.0); Mean Platelet Volume 6.5; Microcytosis Slight; Monocytes # (A) 0.4 k/uL (0-1.0); Monocytes % (A) 5 %; Neutrophils # (A) 6.1 k/uL (1.3-7.7); Neutrophils % (A) 66 %; Platelet Count 392 k/uL (150-450); RBC 5.21 m/uL (3.80-5.40); RDW 17.7 % (11.5-15.5); WBC 9.3 k/uL (3.8-10.6)
[2017-11-02 16:15] LABS: HGB 13.6 gm/dL (11.4-16.0)
[2017-11-02 16:16] LABS: Amorphous Sediment,Urine Occasional /hpf; Appearance,Urine Cloudy (Clear); Bacteria,Urine Rare /hpf; Bilirubin,Urine Negative (Negative); Blood,Urine Trace (Negative); Color,Urine Yellow; Glucose,Urine (UA) Negative (Negative); Ketones,Urine Negative (Negative); Leukocyte Esterase,Urine Large (Negative); Nitrite,Urine Positive (Negative); PH, Urine 6.5 (5.0-8.0); Protein,Urine 1+ (Negative); RBC,Urine 7 /hpf (0-5); Specific Gravity,Urine 1.012 (1.001-1.035); Squamous Epithelial Cell,Urine 1 /hpf (0-4); Urobilinogen,Urine <2.0 mg/dL (<2.0); WBC,Urine 171 /hpf (0-5)
[2017-11-02 16:26] LABS: Creatine Kinase 38 U/L (30-135)
[2017-11-02 16:27] LABS: ALT 20 U/L (9-52); AST 17 U/L (14-36); Albumin 4.6 g/dL (3.5-5.0); Alkaline Phosphatase 69 U/L (38-126); Anion Gap 15 mmol/L; Blood Urea Nitrogen 18 mg/dL (7-17); Calcium 10.3 mg/dL (8.4-10.2); Carbon Dioxide 24 mmol/L (22-30); Chloride 106 mmol/L (98-107); Glucose 88 mg/dL (74-99); Magnesium 1.9 mg/dL (1.6-2.3); Phosphorus 3.9 mg/dL (2.5-4.5); Potassium 3.9 mmol/L (3.5-5.1); Sodium 145 mmol/L (137-145); Total Bilirubin 0.2 mg/dL (0.2-1.3); Total Protein 8.2 g/dL (6.3-8.2)
--- NOTE | 2017-11-02 16:27 | XR ---
EXAMINATION TYPE: XR chest 2V DATE OF EXAM: 11/02/2017 COMPARISON: 09/12/2017 HISTORY: 27-year-old female with weakness TECHNIQUE: Frontal and lateral views FINDINGS: Scoliotic deformity with left lateral fusion at the thoracolumbar junction. Low lung volumes. Right-s ided CERTIFIED DIETARY MANAGER shunt catheter is seen. Heart normal size. Mild diffuse interstitial prominence. No consolida tion or pleural effusion. IMPRESSION: Hypoventilatory changes. No acute process seen. Right-sided CERTIFIED DIETARY MANAGER shunt catheter, scoliosis, and thoracolumbar fusion hardware.
[2017-11-02 16:39] LABS: Creatine Kinase MB 0.3 ng/mL (0.0-2.4); Troponin I <0.012 ng/mL (0.000-0.034)
[2017-11-02] MEDS ORDERED: cefTRIAXone IN SWFI 2,000 MG/20 ML SYRINGE IVP STA (16:40)
[2017-11-02 17:32] VITALS: BP 133/86; PULSE 106; TEMP 98.3
== END 2017-11-02 17:40 | disposition home or self-care (01) ==
LOC: EC 14:54
DX: N39.0 Urinary tract infection, site not specified (principal); J98.01 Acute bronchospasm; R00.0 Tachycardia, unspecified; Z91.040 Latex allergy status; Z77.22 Contact with and (suspected) exposure to environmental tobacco smoke (acute) (chronic); Z79.899 Other long term (current) drug therapy
CPT/HCPCS: 36415; 93005; 80053; 82550; 82553; 83735; 84100; 84484; 85025; 81001; 71046; 99285; 96374; 96375 ×3; 96361; J2930; J0696; J2270

== ENCOUNTER 2017-11-10 17:04 | Inpatient (IN) | payer MEDICARE, OTHER ==
[2017-11-10] MEDS ORDERED: SODIUM CHLORIDE 0.9% 1,000 ML IV STA (17:38)
[2017-11-10] MEDS ORDERED: MORPHINE SULFATE 4 MG/0.8 ML SYRINGE (INJ) IVP STA ×2 (17:38→17:43)
[2017-11-10] MEDS ORDERED: KETOROLAC 30 MG/ML 1 ML VIAL IVP STA (17:38)
--- NOTE | 2017-11-10 17:48 | ED ---
Female Urogenital HPI - General Chief complaint: Urogenital Stated complaint: hip pain Time Seen by Provider: 11/10/17 17:16 Source: patient, RN notes reviewed, old records reviewed Mode of arrival: ambulatory Limitations: no limitations - History of Present Illness Initial comments: Patient is a 27-year-old female with history of spina bifida, kidney stones, and a left hip dysplasia presents emergency department today to point of UTI and left hip pain. Patient reports she's had no trauma to cause left hip pain. She reports she does not have a hip socket. Patient has had urinary symptoms for the past 2 weeks. She is treated with Macrobid by her primary care provider. She straight cath. Patient reports that she's not getting better with antibiotic. Patient denies any fever or chills. She reports she's been feeling nauseated and dizzy. Patient states that she's had no chest pain or shortness of breath. Normal bowel movements. Last Menstrual Period: 09/18/17 - Related Data Home Medications Medication Instructions Recorded Confirmed Metoprolol Tartrate [Lopressor] 12.5 mg PO BID 07/09/17 11/10/17 Multivitamins, Thera [Multivitamin 1 tab PO DAILY 09/12/17 11/10/17 (formulary)] Acetaminophen Tab [Tylenol Tab] 500 mg PO Q6H PRN 11/10/17 11/10/17 Previous Rx's Medication Instructions Recorded Nitrofurantoin Monohyd/M-Cryst 100 mg PO Q12HR #14 cap 11/02/17 [Macrobid] Allergies Allergy/AdvReac Type Severity Reaction Status Date / Time latex Allergy Fever from Verified 11/10/17 17:32 cath Review of Systems ROS Statement: Those systems with pertinent positive or pertinent negative responses have been documented in the HPI. ROS Other: All systems not noted in ROS Statement are negative. 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 COLLETER shunt. Past Anesthesia/Blood Transfusion Reactions: No Reported Reaction Past Psychological History: No Psychological Hx Reported Smoking Status: Never smoker Past Alcohol Use History: None Reported Past Drug Use History: None Reported - Past Family History Mother Family Medical History: Cancer Additional Family Medical History / Comment(s): grandparents - lung General Exam - General Exam Comments Initial Comments: 19-year-old female. Alert and oriented. No distress. Limitations: no limitations General appearance: alert, in no apparent distress Head exam: Present: atraumatic, normocephalic, normal inspection Eye exam: Present: normal appearance, PERRL, EOMI. Absent: scleral icterus, conjunctival injection, periorbital swelling ENT exam: Present: normal exam, mucous membranes moist Neck exam: Present: normal inspection. Absent: tenderness, meningismus, lymphadenopathy Respiratory exam: Present: normal lung sounds bilaterally. Absent: respiratory distress, wheezes, rales, rhonchi, stridor Cardiovascular Exam: Present: regular rate, normal rhythm, normal heart sounds. Absent: systolic murmur, diastolic murmur, rubs, gallop, clicks GI/Abdominal exam: Present: soft, tenderness (Suprapubic tenderness), normal bowel sounds. Absent: distended, guarding, rebound, rigid Extremities exam: Present: normal inspection, full ROM, normal capillary refill. Absent: tenderness, pedal edema, joint swelling, calf tenderness Left Hip exam: Present: normal inspection. Absent: full ROM (Is limited range of motion due to cerebral palsy.) Upper Leg exam: Present: normal inspection. Absent: full ROM Knee exam: Absent: normal inspection, full ROM Lower Leg exam: Present: normal inspection Ankle exam: Absent: normal inspection (Patient has a chronic wound over the left ankle. She has this managed by a microwave engineer.) Back exam: Present: normal inspection, other (Evidence of scars of her lumbar spine.) Neurological exam: Present: alert, oriented X3, CN II-XII intact Psychiatric exam: Present: normal affect, normal mood Course Vital Signs 11/10/17 11/10/17 17:11 19:11 Temperature 98.0 F 99.3 F Pulse Rate 87 116 H Respiratory 18 24 Rate Blood Pressure 128/80 134/76 O2 Sat by Pulse 98 99 Oximetry - Reevaluation(s) Reevaluation #1: 11/10/17 19:51 Exam he starts have a fever 100.0. Bili tachycardic at 110 bpm. We'll start a second liter bolus. Patient was started on IV Levaquin. Medical Decision Making - Medical Decision Making 19-year-old female history spina bifida and frequent urinary tract infections due to self cathing presents emergency Department chief complaint of urinary pain and left hip pain. Patient has been on Macrobid for the past week. She reports stocking any better. Patient's urinalysis is positive for infection at this time. Discussed with Justin outpatient treatment and evidence of fever at this time and vomiting episodes and like to keep the patient in the hospital for observation. Started on IV Levaquin. Patient is agreeable to this plan. Was also noted at the position of the cerebral shunt removed within the KUB x- ray. Patient reports that she has had no significant complaints related to shunt moving such as severe headache or any other symptoms. I reviewed the x- rays myself and I do not see a significant change noted in the position of the shunt. Left hip x-ray did show evidence of the hip dysplasia. No evidence of osteomyelitis. 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 T - Lab Data Result diagrams: 11/10/17 18:07 11/10/17 18:07 Lab Results 11/10/17 11/10/17 11/10/17 Range/Units 18:07 18:07 19:00 WBC 11.6 H (3.8-10.6) k/uL RBC 5.13 (3.80-5.40) m/uL Hgb 13.4 (11.4-16.0) gm/dL Hct 41.7 (34.0-46.0) % MCV 81.2 (80.0-100.0) fL MCH 26.2 (25.0-35.0) pg MCHC 32.2 (31.0-37.0) g/dL RDW 17.5 H (11.5-15.5) % Plt Count 429 (150-450) k/uL Neutrophils % 54 % Lymphocytes % 38 % Monocytes % 5 % Eosinophils % 1 % Basophils % 0 % Neutrophils # 6.3 (1.3-7.7) k/uL Lymphocytes # 4.4 (1.0-4.8) k/uL Monocytes # 0.6 (0-1.0) k/uL Eosinophils # 0.1 (0-0.7) k/uL Basophils # 0.0 (0-0.2) k/uL Anisocytosis Slight Microcytosis Slight Sodium 147 H (137-145) mmol/L Potassium 3.9 (3.5-5.1) mmol/L Chloride 107 (98-107) mmol/L Carbon Dioxide 23 (22-30) mmol/L Anion Gap 17 mmol/L BUN 16 (7-17) mg/dL Creatinine 0.50 L (0.52-1.04) mg/dL Est GFR (CKD-EPI)AfAm >90 (>60 ml/min/1.73 sqM) Est GFR (CKD-EPI)NonAf >90 (>60 ml/min/1.73 sqM) Glucose 86 (74-99) mg/dL Calcium 10.1 (8.4-10.2) mg/dL Total Bilirubin 0.2 (0.2-1.3) mg/dL AST 22 (14-36) U/L ALT 21 (9-52) U/L Alkaline Phosphatase 68 (38-126) U/L Total Protein 7.8 (6.3-8.2) g/dL Albumin 4.7 (3.5-5.0) g/dL Amylase 90 (30-110) U/L Lipase 146 (23-300) U/L Urine Color Yellow Urine Appearance Cloudy H (Clear) Urine pH 5.5 (5.0-8.0) Ur Specific [place] 1.020 (1.001-1.035) Urine Protein Trace H (Negative) Urine Glucose (UA) Negative (Negative) Urine Ketones Negative (Negative) Urine Blood Negative (Negative) Urine Nitrite Negative (Negative) Urine Bilirubin Negative (Negative) Urine Urobilinogen <2.0 (<2.0) mg/dL Ur Leukocyte Esterase Negative (Negative) Urine RBC 6 H (0-5) /hpf Urine WBC 58 H (0-5) /hpf Ur Squamous Epith Cells 3 (0-4) /hpf Urine Bacteria Rare H (None) /hpf Urine Mucus Rare H (None) /hpf 11/10/17 17:53 Patient's EKG performed at 1749 shows normal sinus rhythm with sinus arrhythmia. Cannot rule out anterior infarct. He determined. MA interval is 120 ms. Ventricular rate bpm. She christian 70 ms. QT QTc is 354/433 ms. - Radiology Data Radiology results: report reviewed X-ray of the hip shows no fractures. Dysplasia similar to previous x-rays in . No evidence of ST myelitis. Chronic left hip dislocation. KUB shows a nonacute him. The shunt catheters a fairly high position over the liver this is a change compared to old exam. Catheter could be malposition. Disposition Clinical Impression: Failure of outpatient treatment, UTI (urinary tract infection), Neurogenic bladder Disposition: ADMITTED IP TO THIS HOSP Condition: Stable Is patient prescribed a controlled substance at d/c from ED?: No If prescribed controlled substance>3 days was MAPS reviewed?: No When asked, does pt state using other controlled substances?: No Referrals: Erasmo Edward DO [Primary Care Provider] - 1-2 days Time of Disposition: 19:55
[2017-11-10 18:18] LABS: Anisocytosis Slight; Basophils % (A) 0 %; Eosinophils # (A) 0.1 k/uL (0-0.7); Eosinophils % (A) 1 %; HCT 41.7 % (34.0-46.0); HGB 13.4 gm/dL (11.4-16.0); Lymphocytes # (A) 4.4 k/uL (1.0-4.8); Lymphocytes % (A) 38 %; MCH 26.2 pg (25.0-35.0); MCHC 32.2 g/dL (31.0-37.0); MCV 81.2 fL (80.0-100.0); Microcytosis Slight; Monocytes # (A) 0.6 k/uL (0-1.0); Monocytes % (A) 5 %; Neutrophils # (A) 6.3 k/uL (1.3-7.7); Neutrophils % (A) 54 %; Platelet Count 429 k/uL (150-450); RBC 5.13 m/uL (3.80-5.40); RDW 17.5 % (11.5-15.5); WBC 11.6 k/uL (3.8-10.6)
[2017-11-10 18:37] LABS: ALT 21 U/L (9-52); AST 22 U/L (14-36); Albumin 4.7 g/dL (3.5-5.0); Alkaline Phosphatase 68 U/L (38-126); Amylase 90 U/L (30-110); Anion Gap 17 mmol/L; Blood Urea Nitrogen 16 mg/dL (7-17); Calcium 10.1 mg/dL (8.4-10.2); Carbon Dioxide 23 mmol/L (22-30); Chloride 107 mmol/L (98-107); Glucose 86 mg/dL (74-99); Lipase 146 U/L (23-300); Potassium 3.9 mmol/L (3.5-5.1); Sodium 147 mmol/L (137-145); Total Bilirubin 0.2 mg/dL (0.2-1.3); Total Protein 7.8 g/dL (6.3-8.2)
--- NOTE | 2017-11-10 18:59 | XR ---
EXAMINATION TYPE: XR Hip LT and AP Pelvis DATE OF EXAM: 11/10/2017 COMPARISON: Abdomen x-ray 01/31/2017 HISTORY: Left hip pain TECHNIQUE: 3 views FINDINGS: There is a lateral superior dislocation of the femoral head. There is hip dysplasia with malformed ac etabulum and femoral head. The pelvic ring is intact. There is apparent multilevel spina bifida in th e visualized lower lumbar spine and sacrum. The right proximal femur and hip joint are intact. CONCLUSION: No fracture seen. Left hip dysplasia similar to the abdomen x-ray of 01/31/2017. No evidence of osteom yelitis. Chronic left hip dislocation.
--- NOTE | 2017-11-10 19:01 | XR ---
EXAMINATION TYPE: XR KUB DATE OF EXAM: 11/10/2017 COMPARISON: 07/27/2016 HISTORY: Abdominal pain TECHNIQUE: 2 views FINDINGS: There is no sign of intestinal obstruction or pneumoperitoneum. Fecal pattern is normal. Th ere is multilevel spina bifida. There is moderate lumbar levoscoliosis. There is thoracic dextroscoli osis. There are no pathologic ossifications over the kidneys. There is left hip dysplasia with latera l superior dislocation. I see no sign of a mass. There is a ventriculoperitoneal shunt catheter with the tip over the upper part of the liver. IMPRESSION: Nonacute abdomen. The shunt catheter is in the fairly high position over the liver and th is is a change compared to old exam. Catheter could be malpositioned.
[2017-11-10 19:19] LABS: Appearance,Urine Cloudy (Clear); Bacteria,Urine Rare /hpf; Bilirubin,Urine Negative (Negative); Blood,Urine Negative (Negative); Color,Urine Yellow; Glucose,Urine (UA) Negative (Negative); Ketones,Urine Negative (Negative); Leukocyte Esterase,Urine Negative (Negative); Mucus,Urine Rare /hpf; Nitrite,Urine Negative (Negative); PH, Urine 5.5 (5.0-8.0); Protein,Urine Trace (Negative); RBC,Urine 6 /hpf (0-5); Squamous Epithelial Cell,Urine 3 /hpf (0-4); Urobilinogen,Urine <2.0 mg/dL (<2.0); WBC,Urine 58 /hpf (0-5)
[2017-11-10] MEDS ORDERED: LEVOFLOXACIN 750MG-D5W PMX 750 MG in DEXTROSE/WATER 1 150ML.BAG IVPB STA (19:38)
[2017-11-10] MEDS ORDERED: SODIUM CHLORIDE 0.9% 1,000 ML IV ONE (19:55)
[2017-11-10] MEDS ORDERED: NALOXONE 0.4 MG/ML 1 ML VIAL IV PRN (19:57)
[2017-11-10] MEDS ORDERED: KETOROLAC 30 MG/ML 1 ML VIAL IVP PRN (19:57)
[2017-11-10] MEDS ORDERED: IBUPROFEN 400 MG TAB PO PRN (19:57)
[2017-11-10] MEDS ORDERED: MORPHINE SULFATE 4 MG/0.8 ML SYRINGE (INJ) IV PRN (19:57)
[2017-11-10] MEDS ORDERED: ONDANSETRON 4 MG/2 ML VIAL IVP PRN (19:57)
[2017-11-10] MEDS: SODIUM CHLORIDE 0.9% 1,000 ML IV SCH (20:30)
[2017-11-10] MEDS: METOPROLOL TARTRATE 12.5 MG TAB PO SCH (22:22)
[2017-11-10 23:21] LABS: Glucose,Whole Blood 85 mg/dL (75-99)
[2017-11-10] MEDS: ACETAMINOPHEN TAB 325 MG TAB PO PRN (23:39)
[2017-11-11] MEDS: SODIUM CHLORIDE 0.9% 1,000 ML IV SCH ×2 (05:49→15:25)
[2017-11-11] MEDS ORDERED: MORPHINE ORAL SOLN 10 MG/5 ML CUP PO PRN (08:26)
[2017-11-11] MEDS ORDERED: PANTOPRAZOLE 40 MG/10 ML VIAL IV SCH (09:00)
[2017-11-11] MEDS: METOPROLOL TARTRATE 12.5 MG TAB PO SCH ×2 (09:34→20:55)
[2017-11-11] MEDS: MULTIVITAMINS, THERA 1 EACH TAB PO SCH (09:34)
[2017-11-11] MEDS: ACETAMINOPHEN TAB 325 MG TAB PO PRN ×2 (10:53→16:28)
[2017-11-11 15:55] VITALS: RESP 16
[2017-11-11] MEDS ORDERED: LORazepam 0.5 MG TAB PO PRN (17:14)
[2017-11-11] MEDS ORDERED: LACTULOSE 20 GM/30 ML CUP PO PRN (17:14)
[2017-11-11] MEDS ORDERED: MAGNESIUM HYDROXIDE 2,400 MG/10 ML CUP PO PRN (17:14)
[2017-11-11] MEDS ORDERED: NALOXONE 0.4 MG/ML 1 ML VIAL IV PRN (17:14)
[2017-11-11] MEDS ORDERED: MELATONIN 3 MG TABLET PO PRN (17:14)
[2017-11-11] MEDS: NAPROXEN 250 MG TAB PO SCH ×2 (17:23→20:55)
[2017-11-11] MEDS: ceFAZolin 1,000 MG in DEXTROSE/WATER 1 50ML.BAG IVPB SCH ×2 (18:18→23:50)
--- NOTE | 2017-11-11 18:41 | HP ---
HISTORY AND PHYSICAL DATE OF SERVICE: 11/11/2017 PRESENTING COMPLAINT: Hip pain. HISTORY OF PRESENTING COMPLAINT: This is a very pleasant 27-year-old patient of Dr. Edward whose chronic stable medical conditions include chronic spina bifida causing paraplegia, chronic neurogenic bladder causing recurrent UTIs, GERD, chronic left hydroureter and hydronephrosis. The patient is here with her . Patient is complaining of pain flareup in both the hips, which she has had for a while. Patient recently just finished a course of antibiotic for a UTI, having some dysuria. Denies any fever. Appetite is fair. Feeling tired. Has some headache. No photophobia. No nausea, vomiting. Has been tolerating a diet. REVIEW OF SYSTEMS: CONSTITUTIONAL: Tired. No fevers. HEENT: As above. RESPIRATORY: None. CARDIOVASCULAR: None. GASTROINTESTINAL: None. GENITOURINARY: As above. MUSCULOSKELETAL: Pain in both hips. DERMATOLOGICAL: Chronic wound on the left ankle. HEMATOLOGICAL: None. LYMPHATICS: None. PSYCHIATRY: None. NEUROLOGICAL: Chronic paraplegia. PAST MEDICAL HISTORY: 1. Spina bifida causing chronic paraplegia. 2. Chronic neurogenic bladder. Patient does self-catheterization. 3. Multiple UTIs. 4. GERD. 5. Chronic left hydroureter and hydronephrosis. 6. Chronic left hip dislocation. PAST SURGICAL HISTORY: SAND MIXER shunt. SOCIAL HISTORY: . Does not smoke or drink alcohol. Uses a wheelchair to get about. FAMILY HISTORY: Grandparents had lung cancer. HOME MEDICATIONS: 1. Macrobid 100 mg p.o. q.12. 2. Tylenol 500 mg q.6 p.r.n. 3. Multivitamin 1 tablet p.o. daily. 4. Lopressor 12.5 p.o. b.i.d. ALLERGIES: LATEX. PHYSICAL EXAMINATION: VITAL SIGNS ON PRESENTATION: Temperature 99.3, pulse 116, respiration 24, blood pressure 134/76, pulse 99% on room air. GENERAL APPEARANCE: Average build. BMI 25. Sitting up, comfortable. EYES: Pupils equal. Conjunctivae normal. HEENT: External appearance of nose and ears normal. Oral cavity normal. NECK: JVD not raised. Mass not palpable. RESPIRATORY: Effort normal. Lungs are clear. CARDIOVASCULAR: First and second sounds normal. No edema. ABDOMEN: Soft, nontender. Liver and spleen not palpable. LYMPHATIC: No lymph node palpable in neck or axillae. PSYCHIATRY: Alert and oriented x3. Mood and affect normal. NEUROLOGICAL: Bilateral lower extremity paraplegia. DERMATOLOGICAL: Patient has a wound on the medial malleolus which is rather dry. INVESTIGATIONS: White count 11.6, hemoglobin 13.4, potassium 3.9, BUN 16, creatinine 0.50. UA showing 58 WBCs, no leukocyte esterase. ASSESSMENT: 1. Urinary tract infection secondary to recurrent self-catheterization in a patient who gets recurrent urinary tract infection. Patient's associated white count 11.6. 2. Chronic left hip dislocation. 3. 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 4. Spina bifida causing chronic neurogenic bladder. Patient does regular self- catheterization. 5. Chronic left hydroureter and hydronephrosis. 6. Chronic medical debility from above. Uses a wheelchair. 7. Chronic wound on the left medial malleolus, being followed by as an outpatient. 8. Hypernatremia secondary to dehydration from decreased oral intake. PLAN: Patient will be continued on her home medications. Will add IV Ancef. Urine cultures are pending. Will also give IV fluids. For pain control we will use NSAIDs. Told the importance of not taking narcotics and staying with simple medications like NSAIDs and Tylenol. MMODL / IJN: [id number] /
[2017-11-12] MEDS: SODIUM CHLORIDE 0.9% 1,000 ML IV SCH ×2 (07:21→11:38)
[2017-11-12] MEDS ORDERED: PANTOPRAZOLE 40 MG TABLET PO SCH (07:30)
[2017-11-12] MEDS: NAPROXEN 250 MG TAB PO SCH ×2 (08:57→15:41)
[2017-11-12] MEDS: ceFAZolin 1,000 MG in DEXTROSE/WATER 1 50ML.BAG IVPB SCH ×2 (09:00→15:41)
[2017-11-12] MEDS: METOPROLOL TARTRATE 12.5 MG TAB PO SCH (09:00)
[2017-11-12] MEDS: MULTIVITAMINS, THERA 1 EACH TAB PO SCH (09:01)
[2017-11-12 14:30] VITALS: BP 105/57; PULSE 87; TEMP 98.3
--- NOTE | 2017-11-12 19:12 | DS ---
DISCHARGE SUMMARY DATE OF ADMISSION: 11/10/17 DATE OF DISCHARGE: November 12, 2017. FINAL DIAGNOSES: 1. Possible urinary tract infection secondary to recurrent self catheterization from a Liu catheter. 2. Chronic left hip dislocation. 3. 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 4. Spina bifida causing chronic neurogenic bladder, patient does regular self catheterization. 5. Chronic left hydroureter hydronephrosis. 6. Chronic medical debility from above. Uses a wheelchair. 7. Chronic wound on the left medial malleolus from the boot. Follows with Dr. Wiggins. 8. Hyponatremia secondary to dehydration from decreased oral intake, present on admission. HOSPITAL COURSE: The patient presented with a questionable UTI, also pain in the right hip, felt to be secondary osteoarthritis, also hyponatremia. The patient is given a short burst of antibiotics doing much better. The patient told to use a heating pad in addition to ice pack for pain control. EXAM: Lungs are clear. Cardiovascular 1st and 2nd sounds normal. DISCHARGE MEDICATIONS: 1. Lopressor 12.5 p.o. b.i.d. 2. Multivitamin 1 tab p.o. daily. 3. Tylenol 500 mg q.6h p.r.n. 4. Naproxen 250 mg p.o. b.i.d. p.r.n. FOLLOWUP: Follow up with Dr. Edward on November 27, 2017. MMODL / IJN: [id number] /
== END 2017-11-12 16:55 | disposition home or self-care (01) | DRG 690 ==
LOC: EC 17:04 → 5MS5E 20:31
PROVIDERS: ADMIT Hospitalist; ATTEND Hospitalist
DX: N39.0 Urinary tract infection, site not specified (principal); E87.0 Hyperosmolality and hypernatremia; G82.20 Paraplegia, unspecified; N13.30 Unspecified hydronephrosis; E86.0 Dehydration; K21.9 Gastro-esophageal reflux disease without esophagitis; M17.11 Unilateral primary osteoarthritis, right knee; M24.452 Recurrent dislocation, left hip; N31.9 Neuromuscular dysfunction of bladder, unspecified; Q05.9 Spina bifida, unspecified; Z80.1 Family history of malignant neoplasm of trachea, bronchus and lung; Z87.440 Personal history of urinary (tract) infections; Z87.442 Personal history of urinary calculi; Z98.2 Presence of cerebrospinal fluid drainage device; Z79.2 Long term (current) use of antibiotics; Z79.899 Other long term (current) drug therapy; S91.002D Unspecified open wound, left ankle, subsequent encounter
CPT/HCPCS: 36415; 51701; 73502; 74018; 80053; 81001; 82150; 83605; 83690; 85025; 87040; 87086; 93005; 96361; 96365; 96375; 96376; 99285

== ENCOUNTER 2017-12-06 20:04 | Emergency (ER) | payer MEDICARE, OTHER ==
[2017-12-06] MEDS ORDERED: KETOROLAC 30 MG/ML 1 ML VIAL IVP STA (21:49)
[2017-12-06] MEDS ORDERED: ONDANSETRON 4 MG/2 ML VIAL IVP STA (21:49)
[2017-12-06] MEDS ORDERED: SODIUM CHLORIDE 0.9% 1,000 ML IV ONE (21:49)
--- NOTE | 2017-12-06 23:32 | ED ---
Headache HPI - General Chief Complaint: Headache Stated Complaint: needs urine checked/head problems/hip pain Time Seen by Provider: 12/06/17 21:24 Mode of arrival: wheelchair Limitations: no limitations - History of Present Illness Initial Comments: 27-year-old female patient presents to the emergency department today for evaluation of headache that started this morning. Patient is also reporting nausea and left hip pain. Patient states that the headache has been persistent throughout the day despite use of Aleve. States that she started becoming nauseated. 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 States that her home pain medications aren't working for her chronic pain. The patient states that she does have a history of frequent urinary tract infections without the usual symptoms. Patient states that she does get headaches and nausea when she has an infection. She denies any known fevers or chills. Denies any constipation or diarrhea. She denies any hematuria, dysuria, urinary frequency, urinary urgency. Patient denies any recent rash, shortness breath, chest pain, abdominal pain, back pain, numbness, tingling, dizziness, weakness, visual changes, or any other complaints. - Related Data Home Medications Medication Instructions Recorded Confirmed Metoprolol Tartrate [Lopressor] 12.5 mg PO BID 07/09/17 12/06/17 Multivitamins, Thera [Multivitamin 1 tab PO DAILY 09/12/17 12/06/17 (formulary)] Acetaminophen Tab [Tylenol] 500 mg PO Q6H PRN 11/10/17 12/06/17 Previous Rx's Medication Instructions Recorded Naproxen [Naprosyn] 250 mg PO BID #30 tab 11/12/17 Sulfamethoxazole/Trimethoprim 1 each PO BID #14 tablet 12/07/17 [Bactrim DS 800-160 mg] Allergies Allergy/AdvReac Type Severity Reaction Status Date / Time latex Allergy Fever from Verified 12/06/17 20:43 cath Review of Systems ROS Statement: Those systems with pertinent positive or pertinent negative responses have been documented in the HPI. ROS Other: All systems not noted in ROS Statement are negative. 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 UC ARCHITECT shunt. Past Anesthesia/Blood Transfusion Reactions: No Reported Reaction Past Psychological History: No Psychological Hx Reported Smoking Status: Never smoker Past Alcohol Use History: None Reported Past Drug Use History: None Reported - Past Family History Mother Family Medical History: Cancer Additional Family Medical History / Comment(s): grandparents - lung Father History Unknown: Yes General Exam Limitations: no limitations General appearance: alert, in no apparent distress, other (Vital signs upon presentation were temperature 99.6F, pulse 129, respirations 18, blood pressure 126/75, pulse ox 99% on room air.) Eye exam: Present: normal appearance, PERRL, EOMI. Absent: scleral icterus, conjunctival injection, periorbital swelling ENT exam: Present: normal exam, normal oropharynx, mucous membranes moist Respiratory exam: Present: normal lung sounds bilaterally. Absent: respiratory distress, wheezes, rales, rhonchi, stridor Cardiovascular Exam: Present: normal rhythm, tachycardia, normal heart sounds. Absent: systolic murmur, diastolic murmur, rubs, gallop, clicks GI/Abdominal exam: Present: soft, normal bowel sounds. Absent: distended, tenderness, guarding, rebound, rigid Back exam: Present: normal inspection. Absent: CVA tenderness (R), CVA tenderness (L) Neurological exam: Present: alert, oriented X3, CN II-XII intact Psychiatric exam: Present: normal affect, normal mood Skin exam: Present: warm, dry, intact, normal color. Absent: rash Course Vital Signs 12/06/17 12/06/17 12/07/17 20:41 23:41 00:48 Temperature 98.6 F 99.0 F Pulse Rate 129 H 92 82 Respiratory 18 20 20 Rate Blood Pressure 126/75 130/78 130/79 O2 Sat by Pulse 99 95 100 Oximetry Medical Decision Making - Medical Decision Making 27-year-old female patient presents to the emergency department today with complaints of headache, left hip pain, nausea, and possible urinary tract infection. Patient states that she has this general symptoms whenever she gets urinary tract infections. Labs reviewed and are unremarkable. Patient's urinalysis was positive for urinary tract infection. We will treat her with Bactrim for this. She was given IV dose of Rocephin prior to discharge. Patient is reporting a mild improvement in her symptoms. We will have her follow-up with her primary care physician for recheck in 1-2 days. Return parameters discussed in detail. She verbalizes understanding and agrees with this plan. - Lab Data Result diagrams: 12/06/17 23:25 12/06/17 23:25 Lab Results 12/06/17 12/06/17 12/06/17 Range/Units 23:12 23:12 23:25 WBC 10.1 (3.8-10.6) k/uL RBC 4.56 (3.80-5.40) m/uL Hgb 12.2 (11.4-16.0) gm/dL Hct 36.9 (34.0-46.0) % MCV 81.0 (80.0-100.0) fL MCH 26.8 (25.0-35.0) pg MCHC 33.1 (31.0-37.0) g/dL RDW 15.9 H (11.5-15.5) % Plt Count 381 (150-450) k/uL Neutrophils % 61 % Lymphocytes % 34 % Monocytes % 4 % Eosinophils % 0 % Basophils % 0 % Neutrophils # 6.1 (1.3-7.7) k/uL Lymphocytes # 3.4 (1.0-4.8) k/uL Monocytes # 0.4 (0-1.0) k/uL Eosinophils # 0.0 (0-0.7) k/uL Basophils # 0.0 (0-0.2) k/uL Microcytosis Slight Sodium (137-145) mmol/L Potassium (3.5-5.1) mmol/L Chloride (98-107) mmol/L Carbon Dioxide (22-30) mmol/L Anion Gap mmol/L BUN (7-17) mg/dL Creatinine (0.52-1.04) mg/dL Est GFR (CKD-EPI)AfAm (>60 ml/min/1.73 sqM) Est GFR (CKD-EPI)NonAf (>60 ml/min/1.73 sqM) Glucose (74-99) mg/dL Calcium (8.4-10.2) mg/dL Total Bilirubin (0.2-1.3) mg/dL AST (14-36) U/L ALT (9-52) U/L Alkaline Phosphatase (38-126) U/L Total Protein (6.3-8.2) g/dL Albumin (3.5-5.0) g/dL Urine Color Yellow Urine Appearance Cloudy H (Clear) Urine pH 6.0 (5.0-8.0) Ur Specific [place] 1.017 (1.001-1.035) Urine Protein Trace H (Negative) Urine Glucose (UA) Negative (Negative) Urine Ketones Negative (Negative) Urine Blood Negative (Negative) Urine Nitrite Negative (Negative) Urine Bilirubin Negative (Negative) Urine Urobilinogen <2.0 (<2.0) mg/dL Ur Leukocyte Esterase Moderate H (Negative) Urine RBC 5 (0-5) /hpf Urine WBC 140 H (0-5) /hpf Urine WBC Clumps Occasional H (None) /hpf Ur Squamous Epith Cells 4 (0-4) /hpf Urine Bacteria Few H (None) /hpf Urine Mucus Rare H (None) /hpf Urine HCG, Qual Not Detected (Not Detectd) 12/06/17 Range/Units 23:25 WBC (3.8-10.6) k/uL RBC (3.80-5.40) m/uL Hgb (11.4-16.0) gm/dL Hct (34.0-46.0) % MCV (80.0-100.0) fL MCH (25.0-35.0) pg MCHC (31.0-37.0) g/dL RDW (11.5-15.5) % Plt Count (150-450) k/uL Neutrophils % % Lymphocytes % % Monocytes % % Eosinophils % % Basophils % % Neutrophils # (1.3-7.7) k/uL Lymphocytes # (1.0-4.8) k/uL Monocytes # (0-1.0) k/uL Eosinophils # (0-0.7) k/uL Basophils # (0-0.2) k/uL Microcytosis Sodium 141 (137-145) mmol/L Potassium 3.9 (3.5-5.1) mmol/L Chloride 105 (98-107) mmol/L Carbon Dioxide 22 (22-30) mmol/L Anion Gap 14 mmol/L BUN 17 (7-17) mg/dL Creatinine 0.60 (0.52-1.04) mg/dL Est GFR (CKD-EPI)AfAm >90 (>60 ml/min/1.73 sqM) Est GFR (CKD-EPI)NonAf >90 (>60 ml/min/1.73 sqM) Glucose 99 (74-99) mg/dL Calcium 9.5 (8.4-10.2) mg/dL Total Bilirubin 0.1 L (0.2-1.3) mg/dL AST 20 (14-36) U/L ALT 30 (9-52) U/L Alkaline Phosphatase 60 (38-126) U/L Total Protein 6.9 (6.3-8.2) g/dL Albumin 4.0 (3.5-5.0) g/dL Urine Color Urine Appearance (Clear) Urine pH (5.0-8.0) Ur Specific [place] (1.001-1.035) Urine Protein (Negative) Urine Glucose (UA) (Negative) Urine Ketones (Negative) Urine Blood (Negative) Urine Nitrite (Negative) Urine Bilirubin (Negative) Urine Urobilinogen (<2.0) mg/dL Ur Leukocyte Esterase (Negative) Urine RBC (0-5) /hpf Urine WBC (0-5) /hpf Urine WBC Clumps (None) /hpf Ur Squamous Epith Cells (0-4) /hpf Urine Bacteria (None) /hpf Urine Mucus (None) /hpf Urine HCG, Qual (Not Detectd) Disposition Clinical Impression: Urinary tract infection, Headache Disposition: HOME SELF-CARE Condition: Good Instructions: Urinary Tract Infection in Women (ED), Acute Headache (ED) Additional Instructions: Take medications as directed. Follow-up with the primary care physician for recheck in 1-2 days. Return here immediately for any new, worsening, or concerning symptoms. Prescriptions: Sulfamethoxazole/Trimethoprim [Bactrim DS 800-160 mg] 1 each PO BID #14 tablet Is patient prescribed a controlled substance at d/c from ED?: No Referrals: Erasmo Edward DO [Primary Care Provider] - 1-2 days Time of Disposition: 00:25
[2017-12-06 23:42] VITALS: RESP 20
[2017-12-06 23:44] LABS: Appearance,Urine Cloudy (Clear); Bacteria,Urine Few /hpf; Bilirubin,Urine Negative (Negative); Blood,Urine Negative (Negative); Color,Urine Yellow; Glucose,Urine (UA) Negative (Negative); Ketones,Urine Negative (Negative); Leukocyte Esterase,Urine Moderate (Negative); Mucus,Urine Rare /hpf; Nitrite,Urine Negative (Negative); Protein,Urine Trace (Negative); RBC,Urine 5 /hpf (0-5); Specific Gravity,Urine 1.017 (1.001-1.035); Squamous Epithelial Cell,Urine 4 /hpf (0-4); Urobilinogen,Urine <2.0 mg/dL (<2.0); WBC,Urine 140 /hpf (0-5)
[2017-12-06 23:50] LABS: Basophils % (A) 0 %; Eosinophils % (A) 0 %; HCT 36.9 % (34.0-46.0); HGB 12.2 gm/dL (11.4-16.0); Lymphocytes # (A) 3.4 k/uL (1.0-4.8); Lymphocytes % (A) 34 %; MCH 26.8 pg (25.0-35.0); MCHC 33.1 g/dL (31.0-37.0); Mean Platelet Volume 6.3; Microcytosis Slight; Monocytes # (A) 0.4 k/uL (0-1.0); Monocytes % (A) 4 %; Neutrophils # (A) 6.1 k/uL (1.3-7.7); Neutrophils % (A) 61 %; Platelet Count 381 k/uL (150-450); RBC 4.56 m/uL (3.80-5.40); RDW 15.9 % (11.5-15.5); WBC 10.1 k/uL (3.8-10.6)
[2017-12-07] MEDS ORDERED: cefTRIAXone IN SWFI 1,000 MG/10 ML SYRINGE IVP STA
[2017-12-07 00:02] LABS: ALT 30 U/L (9-52); AST 20 U/L (14-36); Alkaline Phosphatase 60 U/L (38-126); Anion Gap 14 mmol/L; Blood Urea Nitrogen 17 mg/dL (7-17); Calcium 9.5 mg/dL (8.4-10.2); Carbon Dioxide 22 mmol/L (22-30); Chloride 105 mmol/L (98-107); Glucose 99 mg/dL (74-99); Potassium 3.9 mmol/L (3.5-5.1); Sodium 141 mmol/L (137-145); Total Bilirubin 0.1 mg/dL (0.2-1.3); Total Protein 6.9 g/dL (6.3-8.2)
[2017-12-07] MEDS ORDERED: HYDROcodone/APAP 5-325MG 1 EACH TAB PO STA (00:25)
[2017-12-07 00:50] VITALS: BP 130/79; PULSE 82; TEMP 99
== END 2017-12-07 00:50 | disposition home or self-care (01) ==
LOC: EC 20:04
DX: N39.0 Urinary tract infection, site not specified (principal); R00.0 Tachycardia, unspecified; Q05.9 Spina bifida, unspecified; Q65.02 Congenital dislocation of left hip, unilateral; G89.29 Other chronic pain; R51 Headache; R11.0 Nausea; Z79.899 Other long term (current) drug therapy; Z91.040 Latex allergy status; Z98.890 Other specified postprocedural states; Z98.2 Presence of cerebrospinal fluid drainage device
CPT/HCPCS: 99284; 96374; 96375 ×2; 96361; 36415; 80053; 85025; 81001; 81025; J2405; J0696; J1885

== ENCOUNTER 2017-12-13 00:15 | Emergency (ER) | payer MEDICARE, OTHER ==
[2017-12-13 00:23] VITALS: RESP 16
[2017-12-13] MEDS ORDERED: ONDANSETRON ODT 4 MG TAB PO STA (00:35)
--- NOTE | 2017-12-13 00:39 | ED ---
Female Urogenital HPI - General Chief complaint: Urogenital Stated complaint: Possible UTI Time Seen by Provider: 12/13/17 00:18 Source: EMS Mode of arrival: EMS Limitations: no limitations - History of Present Illness Initial comments: This patient is a 27-year-old woman with history of spina bifida who states that she is not feeling better despite taking 2 days of Bactrim for a diagnosed urinary tract infection. The patient states that she is having burning suprapubic discomfort following the usual intermittent straight cath that she does. She also has been feeling warm and cold. She had some nausea today. She relates that the nausea may be related to secondhand marijuana smoke exposure. She states they have a problem and that the upstairs neighbors have been smoking quite a bit and it filters down to their apartment. MD Complaint: dysuria -: days(s) Location: suprapubic Radiation: non-radiating Severity: moderate Quality: dull Consistency: constant Improves with: none Worsens with: none Patient : No - Related Data Home Medications Medication Instructions Recorded Confirmed Metoprolol Tartrate [Lopressor] 12.5 mg PO BID 07/09/17 12/06/17 Multivitamins, Thera [Multivitamin 1 tab PO DAILY 09/12/17 12/06/17 (formulary)] Acetaminophen Tab [Tylenol] 500 mg PO Q6H PRN 11/10/17 12/06/17 Previous Rx's Medication Instructions Recorded Naproxen [Naprosyn] 250 mg PO BID #30 tab 11/12/17 Sulfamethoxazole/Trimethoprim 1 each PO BID #14 tablet 12/07/17 [Bactrim DS 800-160 mg] Cephalexin [Keflex] 500 mg PO Q6HR #28 cap 12/13/17 Allergies Allergy/AdvReac Type Severity Reaction Status Date / Time latex Allergy Fever from Verified 12/13/17 00:23 cath Review of Systems ROS Statement: Those systems with pertinent positive or pertinent negative responses have been documented in the HPI. ROS Other: All systems not noted in ROS Statement are negative. Constitutional: Reports: chills Respiratory: Denies: cough, dyspnea, wheezes Cardiovascular: Denies: chest pain, palpitations, orthopnea, edema, syncope Gastrointestinal: Reports: abdominal pain, nausea. Denies: vomiting, diarrhea, constipation Genitourinary: Reports: dysuria. 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 X RAY PHYSICIAN shunt. Past Anesthesia/Blood Transfusion Reactions: No Reported Reaction Past Psychological History: No Psychological Hx Reported Smoking Status: Never smoker Past Alcohol Use History: None Reported Past Drug Use History: None Reported - Past Family History Mother Family Medical History: Cancer Additional Family Medical History / Comment(s): grandparents - lung Father History Unknown: Yes General Exam Limitations: no limitations General appearance: alert, in no apparent distress Head exam: Present: atraumatic, normocephalic Respiratory exam: Present: normal lung sounds bilaterally. Absent: respiratory distress, wheezes, rales, rhonchi, stridor Cardiovascular Exam: Present: normal rhythm, tachycardia, normal heart sounds. Absent: systolic murmur, diastolic murmur, rubs, gallop GI/Abdominal exam: Present: soft. Absent: distended, tenderness, guarding, rebound, mass Extremities exam: Present: normal inspection, normal capillary refill Back exam: Present: normal inspection. Absent: CVA tenderness (R), CVA tenderness (L) Skin exam: Present: warm, dry, intact, normal color. Absent: rash Course Vital Signs 12/13/17 00:20 Temperature 99.2 F Pulse Rate 110 H Respiratory 16 Rate Blood Pressure 128/80 O2 Sat by Pulse 98 Oximetry Medical Decision Making - Lab Data Lab Results 12/13/17 12/13/17 Range/Units 00:45 00:45 Urine Color Yellow Urine Appearance Cloudy H (Clear) Urine pH 6.0 (5.0-8.0) Ur Specific [place] 1.015 (1.001-1.035) Urine Protein Trace H (Negative) Urine Glucose (UA) Negative (Negative) Urine Ketones Negative (Negative) Urine Blood Negative (Negative) Urine Nitrite Negative (Negative) Urine Bilirubin Negative (Negative) Urine Urobilinogen <2.0 (<2.0) mg/dL Ur Leukocyte Esterase Negative (Negative) Urine RBC 4 (0-5) /hpf Urine WBC 37 H (0-5) /hpf Ur Squamous Epith Cells 2 (0-4) /hpf Urine Mucus Rare H (None) /hpf Urine HCG, Qual Not Detected (Not Detectd) Disposition Clinical Impression: Urinary tract infection Disposition: HOME SELF-CARE Condition: Good Instructions: Urinary Tract Infection in Women (ED) Prescriptions: Cephalexin [Keflex] 500 mg PO Q6HR #28 cap Is patient prescribed a controlled substance at d/c from ED?: No Referrals: Erasmo Edward DO [Primary Care Provider] - 1-2 days
[2017-12-13 01:06] LABS: Appearance,Urine Cloudy (Clear); Bilirubin,Urine Negative (Negative); Blood,Urine Negative (Negative); Color,Urine Yellow; Glucose,Urine (UA) Negative (Negative); Ketones,Urine Negative (Negative); Leukocyte Esterase,Urine Negative (Negative); Mucus,Urine Rare /hpf; Nitrite,Urine Negative (Negative); Protein,Urine Trace (Negative); RBC,Urine 4 /hpf (0-5); Specific Gravity,Urine 1.015 (1.001-1.035); Squamous Epithelial Cell,Urine 2 /hpf (0-4); Urobilinogen,Urine <2.0 mg/dL (<2.0); WBC,Urine 37 /hpf (0-5)
[2017-12-13] MEDS ORDERED: cefTRIAXone IN SWFI 1,000 MG/10 ML SYRINGE IVP STA (01:29)
[2017-12-13 03:34] VITALS: BP 113/62; PULSE 88; TEMP 97.3
== END 2017-12-13 03:32 | disposition home or self-care (01) ==
LOC: EC 00:15
DX: N39.0 Urinary tract infection, site not specified (principal); R11.0 Nausea; Z79.899 Other long term (current) drug therapy; Z91.040 Latex allergy status
CPT/HCPCS: 81001; 81025; 87086; 99284; 96374; J0696

== ENCOUNTER 2018-02-04 17:45 | Emergency (ER) | payer MEDICARE, OTHER ==
[2018-02-04 17:52] VITALS: RESP 18
[2018-02-04] MEDS ORDERED: ONDANSETRON ODT 4 MG TAB PO STA (18:34)
--- NOTE | 2018-02-04 18:43 | ED ---
Female Urogenital HPI - General Chief complaint: Urogenital Stated complaint: poss bladder infection Time Seen by Provider: 02/04/18 18:18 Source: patient, RN notes reviewed Mode of arrival: wheelchair Limitations: no limitations - History of Present Illness Initial comments: This is a 27-year-old female who presents to the emergency department with chief complaint of possible urinary tract infection. Patient is well-known to the emergency department. She reports a history of frequent urinary tract infections. Patient states that she has been experiencing dysuria and nausea today. She states that her bowels have been loose and believes this has led to urinary tract infection. Denies any fevers or chills, significant abdominal pain, chest pain, shortness of breath, vomiting. Patient requests to have a urinalysis. Recommended line and labs, however patient refuses. Last Menstrual Period: 01/23/18 - Related Data Home Medications Medication Instructions Recorded Confirmed Metoprolol Tartrate [Lopressor] 12.5 mg PO BID 07/09/17 02/04/18 Multivitamins, Thera [Multivitamin 1 tab PO DAILY 09/12/17 02/04/18 (formulary)] Previous Rx's Medication Instructions Recorded Sulfamethox-Tmp 800-160Mg [Bactrim 1 tab PO Q12HR #6 tab 02/04/18 DS 800-160 mg] Allergies Allergy/AdvReac Type Severity Reaction Status Date / Time latex Allergy Fever from Verified 02/04/18 18:21 cath Review of Systems ROS Statement: Those systems with pertinent positive or pertinent negative responses have been documented in the HPI. ROS Other: All systems not noted in ROS Statement are negative. 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 SPECTROSCOPIST shunt. Past Anesthesia/Blood Transfusion Reactions: No Reported Reaction Past Psychological History: No Psychological Hx Reported Smoking Status: Never smoker Past Alcohol Use History: None Reported Past Drug Use History: None Reported - Past Family History Mother Family Medical History: Cancer Additional Family Medical History / Comment(s): grandparents - lung Father History Unknown: Yes General Exam - General Exam Comments Initial Comments: General: Awake and alert, well-developed; in no apparent distress. HEENT: Head atraumatic, normocephalic. Pupils are equal, round and reactive to light. Extraocular movements intact. Oropharynx moist without erythema or exudate. Neck: Supple. Normal ROM. Cardiovascular: Regular rate and rhythm. No murmurs, rubs or gallops. Chest symmetrical. Respiratory: Lungs clear to auscultation bilaterally. No wheezes, rales or rhonchi. Normal respiratory effort with no use of accessory muscles. Abdomen: Soft, non-distended. Mild epigastric tenderness on palpation. No rigidity, rebound or guarding. Normal bowel sounds in all 4 quadrants. Musculoskeletal: Normal ROM, no tenderness bilateral upper and lower extremities. Skin: [place], warm and dry without rashes or lesions. Neurological: Alert and oriented x3. CN II-XII grossly intact. Speech is fluent and answers are appropriate. No focal neuro deficits. Psychiatric: Normal mood and affect. No overt signs of depression or anxiety noted. Limitations: no limitations Course Vital Signs 02/04/18 02/04/18 17:50 19:19 Temperature 98.5 F Pulse Rate 107 H 100 Respiratory 18 18 Rate Blood Pressure 136/91 133/92 O2 Sat by Pulse 99 100 Oximetry Medical Decision Making - Medical Decision Making This is a 27-year-old female who presents to the emergency department with chief complaint of possible urinary tract infection. Patient reports a history of frequent UTIs. She requests to have a urinalysis. UA did reveal evidence for infection with large leukocyte esterase, white blood cells with white blood cell clumps. Patient states that Cipro or Bactrim works well to treat her urinary tract infections, however last medication to be used was Cipro. She will be started on Bactrim for UTI. Vitals are stable and patient is in no acute distress. She will be discharged home at this time. All questions answered. - Lab Data Lab Results 02/04/18 Range/Units 19:16 Urine Color Yellow Urine Appearance Turbid H (Clear) Urine pH 6.5 (5.0-8.0) Ur Specific [place] 1.014 (1.001-1.035) Urine Protein 1+ H (Negative) Urine Glucose (UA) Negative (Negative) Urine Ketones Negative (Negative) Urine Blood Small H (Negative) Urine Nitrite Negative (Negative) Urine Bilirubin Negative (Negative) Urine Urobilinogen <2.0 (<2.0) mg/dL Ur Leukocyte Esterase Large H (Negative) Urine RBC 25 H (0-5) /hpf Urine WBC >182 H (0-5) /hpf Urine WBC Clumps Many H (None) /hpf Urine Bacteria Rare H (None) /hpf - EKG Data EKG Comments: Patient complaint of central chest pain to the nurse. She stated that she sometimes experiences this periodically and has had it with UTIs. She states she is unconcerned. However, nurse did order an EKG. 19:21:46. Normal sinus rhythm. Ventricular rate 88 bpm, SD interval 146, QRS duration 80, QT/QTC 362/438. T-wave inversion noted in leads V1 through V3 with flattening of the T wave in V4. When compared to previous EKG in October of this year, these findings were also present. No ST segment elevation or depression. Disposition Clinical Impression: Urinary tract infection Disposition: HOME SELF-CARE Condition: Good Instructions: Urinary Tract Infection in Women (ED) Additional Instructions: Please take medications as prescribed. Please follow up with primary care provider within 1-2 days. Return to emergency department if symptoms should worsen or any concerns arise. Prescriptions: Sulfamethox-Tmp 800-160Mg [Bactrim DS 800-160 mg] 1 tab PO Q12HR #6 tab Is patient prescribed a controlled substance at d/c from ED?: No Referrals: Erasmo Edward DO [Primary Care Provider] - 1-2 days Time of Disposition: 20:24
[2018-02-04 19:20] VITALS: PULSE 100
[2018-02-04 19:45] LABS: Appearance,Urine Turbid (Clear); Bacteria,Urine Rare /hpf; Bilirubin,Urine Negative (Negative); Blood,Urine Small (Negative); Color,Urine Yellow; Glucose,Urine (UA) Negative (Negative); Ketones,Urine Negative (Negative); Leukocyte Esterase,Urine Large (Negative); Nitrite,Urine Negative (Negative); PH, Urine 6.5 (5.0-8.0); Protein,Urine 1+ (Negative); RBC,Urine 25 /hpf (0-5); Specific Gravity,Urine 1.014 (1.001-1.035); Urobilinogen,Urine <2.0 mg/dL (<2.0); WBC,Urine >182 /hpf (0-5)
[2018-02-04] MEDS ORDERED: CIPROFLOXACIN HCL 500 MG TAB PO STA (20:18)
[2018-02-04] MEDS ORDERED: SULFAMETHOX-TMP 800-160MG 1 EACH TAB PO STA (20:22)
[2018-02-04 20:36] VITALS: BP 119/84; TEMP 97.8
== END 2018-02-04 20:42 | disposition home or self-care (01) ==
LOC: EC 17:45
DX: N39.0 Urinary tract infection, site not specified (principal); R11.0 Nausea; R07.89 Other chest pain; Q05.9 Spina bifida, unspecified; Q65.02 Congenital dislocation of left hip, unilateral; Z79.899 Other long term (current) drug therapy; Z91.040 Latex allergy status; Z99.3 Dependence on wheelchair; Z98.890 Other specified postprocedural states
CPT/HCPCS: 81001; 93005; 99283

== ENCOUNTER 2018-02-06 13:10 | Emergency (ER) | payer MEDICARE, OTHER ==
[2018-02-06] MEDS ORDERED: SODIUM CHLORIDE 0.9% 1,000 ML IV STA (13:25)
[2018-02-06] MEDS ORDERED: ONDANSETRON 4 MG/2 ML VIAL IVP STA (13:25)
--- NOTE | 2018-02-06 13:31 | ED ---
General Adult HPI - General Chief complaint: Nausea/Vomiting/Diarrhea Stated complaint: bladder infection Time Seen by Provider: 02/06/18 13:10 Source: patient, RN notes reviewed Mode of arrival: wheelchair Limitations: physical limitation - History of Present Illness Initial comments: This is a 27-year-old female presents emergency Department with a past medical history significant for spina bifida. Patient states she self caths every 4 hours. Patient states she was diagnosed with urinary tract infection 2 days ago but since she seems to be getting a little worse and now is vomiting. Patient states she also feels warm but does not have a temperature. Patient states she has a little suprapubic discomfort. Patient denies any urinary frequency. Patient states she is still nauseated. Patient states she has a history of urinary tract infections. Patient also states she's had her surgery times one - Related Data Home Medications Medication Instructions Recorded Confirmed Metoprolol Tartrate [Lopressor] 12.5 mg PO BID 07/09/17 02/06/18 Multivitamins, Thera [Multivitamin 1 tab PO DAILY 09/12/17 02/06/18 (formulary)] Previous Rx's Medication Instructions Recorded Sulfamethox-Tmp 800-160Mg [Bactrim 1 tab PO Q12HR #6 tab 02/04/18 DS 800-160 mg] Nitrofurantoin Monohyd/M-Cryst 100 mg PO Q12HR #14 cap 02/06/18 [Macrobid] Phenazopyridine [Pyridium] 200 mg PO TID #9 tablet 02/06/18 Allergies Allergy/AdvReac Type Severity Reaction Status Date / Time latex Allergy Fever from Verified 02/06/18 13:21 cath Review of Systems ROS Statement: Those systems with pertinent positive or pertinent negative responses have been documented in the HPI. ROS Other: All systems not noted in ROS Statement are negative. 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 [employer] shunt. Past Anesthesia/Blood Transfusion Reactions: No Reported Reaction Past Psychological History: No Psychological Hx Reported Smoking Status: Never smoker Past Alcohol Use History: None Reported Past Drug Use History: None Reported - Past Family History Mother Family Medical History: Cancer Additional Family Medical History / Comment(s): grandparents - lung Father History Unknown: Yes General Exam - General Exam Comments Initial Comments: GENERAL: Patient is well-developed and well-nourished. Patient is nontoxic and well- hydrated and is in mild distress. ENT: Neck is soft and supple. No significant lymphadenopathy is noted. Oropharynx is clear. Moist mucous membranes. EYES: The sclera were anicteric and conjunctiva were pink and moist. Extraocular movements were intact and pupils were equal round and reactive to light. Eyelids were unremarkable. PULMONARY: Unlabored respirations. Good breath sounds bilaterally. No audible rales rhonchi or wheezing was noted. CARDIOVASCULAR: There is a regular rate and rhythm without any murmurs gallops or rubs ABDOMEN: Patient has some minimal suprapubic abdominal pain. SKIN: Skin is clear with no lesions or rashes and otherwise unremarkable. NEUROLOGIC: Patient is alert and oriented x3. Cranial nerves II through XII are grossly intact. MUSCULOSKELETAL: Normal extremities with adequate strength and full range of motion. No lower extremity swelling or edema. No calf tenderness. LYMPHATICS: No significant lymphadenopathy is noted PSYCHIATRIC: Normal psychiatric evaluation. Limitations: physical limitation Course Vital Signs 02/06/18 02/06/18 13:14 15:18 Temperature 99.2 F Pulse Rate 123 H 86 Respiratory 20 18 Rate Blood Pressure 122/82 122/79 O2 Sat by Pulse 95 98 Oximetry Medical Decision Making - Medical Decision Making Patient was given 2 g Rocephin emergency department as well as Zofran and Reglan for her nausea. Patient will be sent home on antibiotic and Pyridium and given some Zofran to take at home for nausea - Lab Data Result diagrams: 02/06/18 14:00 02/06/18 14:00 Lab Results 02/06/18 02/06/18 02/06/18 Range/Units 14:00 14:00 14:00 WBC 7.6 (3.8-10.6) k/uL RBC 4.27 (3.80-5.40) m/uL Hgb 11.5 (11.4-16.0) gm/dL Hct 35.0 (34.0-46.0) % MCV 82.0 (80.0-100.0) fL MCH 27.0 (25.0-35.0) pg MCHC 32.9 (31.0-37.0) g/dL RDW 13.7 (11.5-15.5) % Plt Count 376 (150-450) k/uL Neutrophils % 60 % Lymphocytes % 32 % Monocytes % 6 % Eosinophils % 0 % Basophils % 0 % Neutrophils # 4.6 (1.3-7.7) k/uL Lymphocytes # 2.5 (1.0-4.8) k/uL Monocytes # 0.4 (0-1.0) k/uL Eosinophils # 0.0 (0-0.7) k/uL Basophils # 0.0 (0-0.2) k/uL Sodium 141 (137-145) mmol/L Potassium 3.6 (3.5-5.1) mmol/L Chloride 111 H (98-107) mmol/L Carbon Dioxide 21 L (22-30) mmol/L Anion Gap 9 mmol/L BUN 13 (7-17) mg/dL Creatinine 0.60 (0.52-1.04) mg/dL Est GFR (CKD-EPI)AfAm >90 (>60 ml/min/1.73 sqM) Est GFR (CKD-EPI)NonAf >90 (>60 ml/min/1.73 sqM) Glucose 85 (74-99) mg/dL Plasma Lactic Acid [place] 1.0 (0.7-2.0) mmol/L Calcium 9.0 (8.4-10.2) mg/dL Total Bilirubin 0.2 (0.2-1.3) mg/dL AST 20 (14-36) U/L ALT 31 (9-52) U/L Alkaline Phosphatase 73 (38-126) U/L Total Protein 6.9 (6.3-8.2) g/dL Albumin 3.9 (3.5-5.0) g/dL Urine Color Urine Appearance (Clear) Urine pH (5.0-8.0) Ur Specific [place] (1.001-1.035) Urine Protein (Negative) Urine Glucose (UA) (Negative) Urine Ketones (Negative) Urine Blood (Negative) Urine Nitrite (Negative) Urine Bilirubin (Negative) Urine Urobilinogen (<2.0) mg/dL Ur Leukocyte Esterase (Negative) Urine RBC (0-5) /hpf Urine WBC (0-5) /hpf Urine WBC Clumps (None) /hpf Ur Squamous Epith Cells (0-4) /hpf 02/06/18 Range/Units 15:17 WBC (3.8-10.6) k/uL RBC (3.80-5.40) m/uL Hgb (11.4-16.0) gm/dL Hct (34.0-46.0) % MCV (80.0-100.0) fL MCH (25.0-35.0) pg MCHC (31.0-37.0) g/dL RDW (11.5-15.5) % Plt Count (150-450) k/uL Neutrophils % % Lymphocytes % % Monocytes % % Eosinophils % % Basophils % % Neutrophils # (1.3-7.7) k/uL Lymphocytes # (1.0-4.8) k/uL Monocytes # (0-1.0) k/uL Eosinophils # (0-0.7) k/uL Basophils # (0-0.2) k/uL Sodium (137-145) mmol/L Potassium (3.5-5.1) mmol/L Chloride (98-107) mmol/L Carbon Dioxide (22-30) mmol/L Anion Gap mmol/L BUN (7-17) mg/dL Creatinine (0.52-1.04) mg/dL Est GFR (CKD-EPI)AfAm (>60 ml/min/1.73 sqM) Est GFR (CKD-EPI)NonAf (>60 ml/min/1.73 sqM) Glucose (74-99) mg/dL Plasma Lactic Acid [place] (0.7-2.0) mmol/L Calcium (8.4-10.2) mg/dL Total Bilirubin (0.2-1.3) mg/dL AST (14-36) U/L ALT (9-52) U/L Alkaline Phosphatase (38-126) U/L Total Protein (6.3-8.2) g/dL Albumin (3.5-5.0) g/dL Urine Color Yellow Urine Appearance Cloudy H (Clear) Urine pH 6.5 (5.0-8.0) Ur Specific [place] 1.012 (1.001-1.035) Urine Protein Trace H (Negative) Urine Glucose (UA) Negative (Negative) Urine Ketones Negative (Negative) Urine Blood Negative (Negative) Urine Nitrite Negative (Negative) Urine Bilirubin Negative (Negative) Urine Urobilinogen <2.0 (<2.0) mg/dL Ur Leukocyte Esterase Large H (Negative) Urine RBC 11 H (0-5) /hpf Urine WBC >182 H (0-5) /hpf Urine WBC Clumps Moderate H (None) /hpf Ur Squamous Epith Cells 1 (0-4) /hpf Disposition Clinical Impression: Urinary tract infection Disposition: HOME SELF-CARE Instructions: Urinary Tract Infection in Women (ED) Prescriptions: Nitrofurantoin Monohyd/M-Cryst [Macrobid] 100 mg PO Q12HR #14 cap Phenazopyridine [Pyridium] 200 mg PO TID #9 tablet Is patient prescribed a controlled substance at d/c from ED?: No Referrals: Erasmo Edward DO [Primary Care Provider] - 1-2 days Time of Disposition: 15:53
[2018-02-06] MEDS ORDERED: cefTRIAXone 2,000 MG in SODIUM CHLORIDE 0.9% 100 ML IVPB STA (13:35)
[2018-02-06] MEDS ORDERED: cefTRIAXone IN SWFI 2,000 MG/20 ML SYRINGE IVP STA (13:36)
[2018-02-06 14:10] LABS: Basophils % (A) 0 %; Eosinophils % (A) 0 %; HGB 11.5 gm/dL (11.4-16.0); Lymphocytes # (A) 2.5 k/uL (1.0-4.8); Lymphocytes % (A) 32 %; MCHC 32.9 g/dL (31.0-37.0); Mean Platelet Volume 6.4; Monocytes # (A) 0.4 k/uL (0-1.0); Monocytes % (A) 6 %; Neutrophils # (A) 4.6 k/uL (1.3-7.7); Neutrophils % (A) 60 %; Platelet Count 376 k/uL (150-450); RBC 4.27 m/uL (3.80-5.40); RDW 13.7 % (11.5-15.5); WBC 7.6 k/uL (3.8-10.6)
[2018-02-06 14:21] LABS: ALT 31 U/L (9-52); AST 20 U/L (14-36); Albumin 3.9 g/dL (3.5-5.0); Alkaline Phosphatase 73 U/L (38-126); Anion Gap 9 mmol/L; Blood Urea Nitrogen 13 mg/dL (7-17); Carbon Dioxide 21 mmol/L (22-30); Chloride 111 mmol/L (98-107); Glucose 85 mg/dL (74-99); Potassium 3.6 mmol/L (3.5-5.1); Sodium 141 mmol/L (137-145); Total Bilirubin 0.2 mg/dL (0.2-1.3); Total Protein 6.9 g/dL (6.3-8.2)
[2018-02-06 15:23] VITALS: RESP 18
[2018-02-06] MEDS ORDERED: KETOROLAC 60 MG/2 ML VIAL IVP STA (15:28)
[2018-02-06] MEDS ORDERED: METOCLOPRAMIDE 5 MG/ML 2 ML VIAL IVP STA (15:28)
[2018-02-06 15:40] LABS: Appearance,Urine Cloudy (Clear); Bilirubin,Urine Negative (Negative); Blood,Urine Negative (Negative); Color,Urine Yellow; Glucose,Urine (UA) Negative (Negative); Ketones,Urine Negative (Negative); Leukocyte Esterase,Urine Large (Negative); Nitrite,Urine Negative (Negative); PH, Urine 6.5 (5.0-8.0); Protein,Urine Trace (Negative); RBC,Urine 11 /hpf (0-5); Specific Gravity,Urine 1.012 (1.001-1.035); Squamous Epithelial Cell,Urine 1 /hpf (0-4); Urobilinogen,Urine <2.0 mg/dL (<2.0); WBC,Urine >182 /hpf (0-5)
[2018-02-06] MEDS ORDERED: ONDANSETRON 4 MG ODT STARTER PACK 2 TAB BTL PO STA (15:50)
[2018-02-06 16:10] VITALS: BP 126/80; PULSE 93; TEMP 98.2
== END 2018-02-06 16:33 | disposition home or self-care (01) ==
LOC: EC 13:10
DX: N39.0 Urinary tract infection, site not specified (principal); R11.2 Nausea with vomiting, unspecified; R19.7 Diarrhea, unspecified; Z79.899 Other long term (current) drug therapy; Z91.040 Latex allergy status; Z87.442 Personal history of urinary calculi; Z98.890 Other specified postprocedural states
CPT/HCPCS: 36415; 80053; 83605; 85025; 81001; 87040; 87086; 99284; 96374; 96375 ×3; 96361 ×2; J2765; J2405; J0696; J1885

== ENCOUNTER 2018-03-10 23:31 | Emergency (ER) | payer MEDICARE, OTHER ==
--- NOTE | 2018-03-11 00:59 | ED ---
General Adult HPI - General Chief complaint: Urogenital Stated complaint: Bladder infection Time Seen by Provider: 03/11/18 00:50 Source: patient Mode of arrival: wheelchair Limitations: no limitations - History of Present Illness Initial comments: Nedra is a 27-year-old female with a history of spina bifida and neurogenic bladder who straight caths herself, she has a history of recurrent urinary tract infections in the past most recently was 2-3 months ago. Patient since to the emergency department today via private vehicle for evaluation of dysuria and foul-smelling urine, urine cloudiness and nausea. Patient reports that the symptoms are similar to previous episodes of urinary tract infection. Patient reports that she has had some burning with urination for 2-3 days, however today she noticed that her urine seemed cloudy and she had associated nausea. This prompted her to come to the ER for further evaluation. She denies any concern for sexual transmitted infection or . Patient does have a history of tachycardia and is currently on medications for tachycardia, however does state that her rate of 117 is slightly faster than usual for her. She has had subjective fevers at home but no documented fevers. - Related Data Home Medications Medication Instructions Recorded Confirmed Metoprolol Tartrate [Lopressor] 12.5 mg PO BID 07/09/17 02/06/18 Multivitamins, Thera [Multivitamin 1 tab PO DAILY 09/12/17 02/06/18 (formulary)] Previous Rx's Medication Instructions Recorded Sulfamethox-Tmp 800-160Mg [Bactrim 1 tab PO Q12HR #6 tab 02/04/18 DS 800-160 mg] Nitrofurantoin Monohyd/M-Cryst 100 mg PO Q12HR #14 cap 02/06/18 [Macrobid] Phenazopyridine [Pyridium] 200 mg PO TID #9 tablet 02/06/18 Sulfamethox-Tmp 800-160Mg [Bactrim 1 tab PO Q12HR #14 tab 03/11/18 DS 800-160 mg] Allergies Allergy/AdvReac Type Severity Reaction Status Date / Time latex Allergy Fever from Verified 03/10/18 23:41 cath Review of Systems ROS Statement: Those systems with pertinent positive or pertinent negative responses have been documented in the HPI. ROS Other: All systems not noted in ROS Statement are negative. 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 Past Anesthesia/Blood Transfusion Reactions: No Reported Reaction Past Psychological History: No Psychological Hx Reported Smoking Status: Never smoker Past Alcohol Use History: None Reported Past Drug Use History: None Reported - Past Family History Mother Family Medical History: Cancer Additional Family Medical History / Comment(s): grandparents - lung Father History Unknown: Yes General Exam Limitations: no limitations General appearance: alert, in no apparent distress Head exam: Present: atraumatic Eye exam: Present: PERRL ENT exam: Present: normal exam Respiratory exam: Absent: respiratory distress Cardiovascular Exam: Present: normal rhythm, tachycardia GI/Abdominal exam: Present: soft, tenderness (to palpation of suprapubic area). Absent: guarding, rebound, rigid Rectal exam: Present: deferred Extremities exam: Present: other (chronic changes consistent with history and multiple orthopedic surgeries, no acute findings). Absent: normal inspection, full ROM Back exam: Present: other (post surgical changes) Neurological exam: Present: alert, oriented X3 Psychiatric exam: Present: normal affect, normal mood Skin exam: Present: warm, dry Course Vital Signs 03/10/18 03/11/18 23:39 03:21 Temperature 98.3 F 97.6 F Pulse Rate 117 H 83 Respiratory 18 20 Rate Blood Pressure 118/76 107/66 O2 Sat by Pulse 99 100 Oximetry - Reevaluation(s) Reevaluation #1: Patient was updated on urinalysis findings, I offered by mouth antibiotics versus IV, because of patient's nausea she would prefer IV antibiotics to start. I think this is a reasonable plan, we'll give IV antibiotics and fluid bolus. 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 03/11/18 01:38 Medical Decision Making - Medical Decision Making The patient was seen and evaluated, patient was mildly tachycardic, afebrile History of recurrent urinary tract actions in the past likely related to self cathing, no infections in the past 2 months Urinalysis, urine culture were ordered She was able to straight cath herself to provide a urine sample which was sent to lab and was consistent with urinary tract infection IV bolus, Rocephin and morphine were ordered Landed discharge patient home on by mouth Bactrim - Lab Data Lab Results 03/11/18 03/11/18 Range/Units 01:02 01:02 Urine Color Yellow Urine Appearance Turbid H (Clear) Urine pH 6.5 (5.0-8.0) Ur Specific [place] 1.015 (1.001-1.035) Urine Protein 1+ H (Negative) Urine Glucose (UA) Negative (Negative) Urine Ketones Negative (Negative) Urine Blood Small H (Negative) Urine Nitrite Positive H (Negative) Urine Bilirubin Negative (Negative) Urine Urobilinogen <2.0 (<2.0) mg/dL Ur Leukocyte Esterase Large H (Negative) Urine RBC 43 H (0-5) /hpf Urine WBC >182 H (0-5) /hpf Urine WBC Clumps Many H (None) /hpf Ur Squamous Epith Cells 1 (0-4) /hpf Urine Bacteria Many H (None) /hpf Urine HCG, Qual Not Detected (Not Detectd) Disposition Clinical Impression: UTI (urinary tract infection) Disposition: HOME SELF-CARE Condition: Good Instructions: Urinary Tract Infection in Women (ED) Prescriptions: Sulfamethox-Tmp 800-160Mg [Bactrim DS 800-160 mg] 1 tab PO Q12HR #14 tab Is patient prescribed a controlled substance at d/c from ED?: No Referrals: Erasmo Edward DO [Primary Care Provider] - 1-2 days Time of Disposition: 03:23
[2018-03-11 01:22] LABS: Appearance,Urine Turbid (Clear); Bacteria,Urine Many /hpf; Bilirubin,Urine Negative (Negative); Blood,Urine Small (Negative); Color,Urine Yellow; Glucose,Urine (UA) Negative (Negative); Ketones,Urine Negative (Negative); Leukocyte Esterase,Urine Large (Negative); Nitrite,Urine Positive (Negative); PH, Urine 6.5 (5.0-8.0); Protein,Urine 1+ (Negative); RBC,Urine 43 /hpf (0-5); Specific Gravity,Urine 1.015 (1.001-1.035); Squamous Epithelial Cell,Urine 1 /hpf (0-4); Urobilinogen,Urine <2.0 mg/dL (<2.0); WBC,Urine >182 /hpf (0-5)
[2018-03-11] MEDS ORDERED: cefTRIAXone IN SWFI 1,000 MG/10 ML SYRINGE IVP STA (01:38)
[2018-03-11] MEDS ORDERED: SODIUM CHLORIDE 0.9% 1,000 ML IV ONE (01:38)
[2018-03-11] MEDS ORDERED: MORPHINE SULFATE 4 MG/ML SYRINGE IVP STA (01:39)
[2018-03-11] MEDS ORDERED: ONDANSETRON 4 MG/2 ML VIAL IVP STA (01:59)
[2018-03-11 03:22] VITALS: BP 107/66; PULSE 83; RESP 20; TEMP 97.6
== END 2018-03-11 03:26 | disposition home or self-care (01) ==
LOC: EC 23:31
DX: N39.0 Urinary tract infection, site not specified (principal); Z98.890 Other specified postprocedural states; Z87.442 Personal history of urinary calculi; Z79.899 Other long term (current) drug therapy; Z91.040 Latex allergy status
CPT/HCPCS: 99283; 81001; 81025; 87086; 87077; 87186; J2270; J2405; J0696

== ENCOUNTER 2018-03-19 02:06 | Observation (INO) | payer MEDICARE, OTHER ==
[2018-03-19] MEDS ORDERED: SODIUM CHLORIDE 0.9% 1,000 ML IV STA (02:47)
[2018-03-19 03:31] LABS: Appearance,Urine Cloudy (Clear); Bilirubin,Urine Negative (Negative); Blood,Urine Negative (Negative); Color,Urine Yellow; Glucose,Urine (UA) Negative (Negative); Ketones,Urine Negative (Negative); Leukocyte Esterase,Urine Small (Negative); Mucus,Urine Rare /hpf; Nitrite,Urine Negative (Negative); Protein,Urine 1+ (Negative); RBC,Urine 4 /hpf (0-5); Specific Gravity,Urine 1.018 (1.001-1.035); Squamous Epithelial Cell,Urine 10 /hpf (0-4); WBC,Urine >182 /hpf (0-5)
[2018-03-19 03:49] LABS: Basophils % (A) 0 %; Eosinophils % (A) 0 %; HCT 38.5 % (34.0-46.0); HGB 12.2 gm/dL (11.4-16.0); Lymphocytes # (A) 2.7 k/uL (1.0-4.8); Lymphocytes % (A) 29 %; MCH 26.7 pg (25.0-35.0); MCHC 31.6 g/dL (31.0-37.0); MCV 84.4 fL (80.0-100.0); Monocytes # (A) 0.5 k/uL (0-1.0); Monocytes % (A) 6 %; Neutrophils % (A) 64 %; Platelet Count 370 k/uL (150-450); RBC 4.56 m/uL (3.80-5.40); RDW 14.5 % (11.5-15.5); WBC 9.4 k/uL (3.8-10.6)
[2018-03-19 03:58] LABS: ALT 22 U/L (9-52); AST 17 U/L (14-36); Albumin 4.4 g/dL (3.5-5.0); Alkaline Phosphatase 68 U/L (38-126); Amylase 75 U/L (30-110); Anion Gap 12 mmol/L; Blood Urea Nitrogen 20 mg/dL (7-17); Calcium 9.4 mg/dL (8.4-10.2); Carbon Dioxide 22 mmol/L (22-30); Chloride 105 mmol/L (98-107); Glucose 90 mg/dL (74-99); Lipase 110 U/L (23-300); Potassium 3.5 mmol/L (3.5-5.1); Sodium 139 mmol/L (137-145); Total Bilirubin 0.2 mg/dL (0.2-1.3); Total Protein 7.9 g/dL (6.3-8.2)
[2018-03-19] MEDS ORDERED: NALOXONE 0.4 MG/ML 1 ML VIAL IV PRN (04:25)
[2018-03-19] MEDS ORDERED: ONDANSETRON 4 MG/2 ML VIAL IVP PRN (04:25)
[2018-03-19] MEDS ORDERED: cefTRIAXone IN SWFI 1,000 MG/10 ML SYRINGE IVP STA (04:26)
--- NOTE | 2018-03-19 04:28 | ED ---
Nausea/Vomiting/Diarrhea HPI - General Source: patient, family Mode of arrival: wheelchair Limitations: no limitations <Radha Hughes - Last Filed: 03/19/18 04:28> <Paresh Mar - Last Filed: 03/19/18 10:26> - General Chief complaint: Nausea/Vomiting/Diarrhea Stated complaint: Bladder infection,vomiting Time Seen by Provider: 03/19/18 02:31 - History of Present Illness Initial comments: 27-year-old female patient with past medical history significant for spina bifida and neurogenic bladder requiring self-catheterization 4 times daily, presents to the emergency department today for evaluation of vomiting, back pain , and dark colored urine. Patient states she has been taking Bactrim for urinary tract infection for the last week. Patient states that she has been nauseated throughout the day and did start to vomit this evening. Patient states that she is having some increased low back pain. States that her urine is dark colored, cloudy, and odorous. States she has been chilled, but has not checked her temperature. She is reporting sharp stabbing suprapubic pain. Patient denies any recent rash, shortness breath, chest pain, diarrhea, constipation, back pain, numbness, tingling, dizziness, weakness, headache, visual changes, or any other complaints. (Radha Hughes) - Related Data Home Medications Medication Instructions Recorded Confirmed Metoprolol Tartrate [Lopressor] 12.5 mg PO BID 07/09/17 03/19/18 Multivitamins, Thera [Multivitamin 1 tab PO DAILY 09/12/17 03/19/18 (formulary)] Docusate [Colace] 100 mg PO DAILY 03/19/18 03/19/18 Previous Rx's Medication Instructions Recorded Sulfamethox-Tmp 800-160Mg [Bactrim 1 tab PO Q12HR #14 tab 03/11/18 DS 800-160 mg] Allergies Allergy/AdvReac Type Severity Reaction Status Date / Time latex Allergy Fever from Verified 03/19/18 09:30 cath Review of Systems ROS Other: All systems not noted in ROS Statement are negative. <Radha Hughes - Last Filed: 03/19/18 04:28> ROS Other: All systems not noted in ROS Statement are negative. <Paresh Mar - Last Filed: 03/19/18 10:26> ROS Statement: Those systems with pertinent positive or pertinent negative responses have been documented in the HPI. 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 Past Anesthesia/Blood Transfusion Reactions: No Reported Reaction Past Psychological History: No Psychological Hx Reported Smoking Status: Never smoker Past Alcohol Use History: None Reported Past Drug Use History: None Reported - Past Family History Mother Family Medical History: Cancer Additional Family Medical History / Comment(s): grandparents - lung Father History Unknown: Yes <Radha Hughes - Last Filed: 03/19/18 04:28> General Exam Limitations: no limitations General appearance: alert, in no apparent distress, other (Patient is in no acute distress. Vital signs upon presentation are temperature 98.5F, pulse 102 , respirations 20, blood pressure 127/81, pulse ox 97% on room air.) Eye exam: Present: normal appearance, PERRL, EOMI. Absent: scleral icterus, conjunctival injection, periorbital swelling ENT exam: Present: normal exam, normal oropharynx, mucous membranes moist Respiratory exam: Present: normal lung sounds bilaterally. Absent: respiratory distress, wheezes, rales, rhonchi, stridor Cardiovascular Exam: Present: regular rate, normal rhythm, normal heart sounds. Absent: systolic murmur, diastolic murmur, rubs, gallop, clicks GI/Abdominal exam: Present: soft, normal bowel sounds. Absent: distended, tenderness, guarding, rebound, rigid Back exam: Present: normal inspection, CVA tenderness (R), CVA tenderness (L) Neurological exam: Present: alert, oriented X3, CN II-XII intact Psychiatric exam: Present: normal affect, normal mood Skin exam: Present: warm, dry, intact, normal color. Absent: rash <Radha Hughes - Last Filed: 03/19/18 04:28> Vital Signs 03/19/18 03/19/18 02:17 05:02 Temperature 98.5 F 98.2 F Pulse Rate 102 H 88 Respiratory 20 17 Rate Blood Pressure 127/81 110/76 O2 Sat by Pulse 97 98 Oximetry Medical Decision Making - Lab Data Result diagrams: 03/19/18 03:30 03/19/18 03:30 <Radha Hughes - Last Filed: 03/19/18 04:28> - Lab Data Result diagrams: 03/19/18 03:30 03/19/18 03:30 <Paresh Mar - Last Filed: 03/19/18 10:26> - Medical Decision Making 27-year-old female patient presented to the emergency department today for evaluation of vomiting, increased low back pain, and suprapubic abdominal cramping. Physical examination did reveal bilateral CVA tenderness. Labs reviewed and did reveal an elevated BUN at 20. Urinalysis showed cloudy appearance with 1+ protein, small leukocyte esterase, greater than 182 white blood cells, moderate white blood cell clumps, 10 squamous epithelial cells, and rare mucous. HCG was negative. As patient has been taking Bactrim for one week with worsening symptoms and his urine still positive for urinary tract infection will keep patient in the hospital for IV antibiotics and further evaluation. Patient was informed of all results and is agreeable with this plan. (Radha Hughes) I saw this patient in conjunction with the physician social science research assistant. I performed independent history and physical exam. Agree with case management. (Paresh Mar) - Lab Data Lab Results 03/19/18 03/19/18 03/19/18 Range/Units 03:15 03:15 03:30 WBC (3.8-10.6) k/uL RBC (3.80-5.40) m/uL Hgb (11.4-16.0) gm/dL Hct (34.0-46.0) % MCV (80.0-100.0) fL MCH (25.0-35.0) pg MCHC (31.0-37.0) g/dL RDW (11.5-15.5) % Plt Count (150-450) k/uL Neutrophils % % Lymphocytes % % Monocytes % % Eosinophils % % Basophils % % Neutrophils # (1.3-7.7) k/uL Lymphocytes # (1.0-4.8) k/uL Monocytes # (0-1.0) k/uL Eosinophils # (0-0.7) k/uL Basophils # (0-0.2) k/uL Sodium 139 (137-145) mmol/L Potassium 3.5 (3.5-5.1) mmol/L Chloride 105 (98-107) mmol/L Carbon Dioxide 22 (22-30) mmol/L Anion Gap 12 mmol/L BUN 20 H (7-17) mg/dL Creatinine 0.70 (0.52-1.04) mg/dL Est GFR (CKD-EPI)AfAm >90 (>60 ml/min/1.73 sqM) Est GFR (CKD-EPI)NonAf >90 (>60 ml/min/1.73 sqM) Glucose 90 (74-99) mg/dL Plasma Lactic Acid Mauro (0.7-2.0) mmol/L Calcium 9.4 (8.4-10.2) mg/dL Total Bilirubin 0.2 (0.2-1.3) mg/dL AST 17 (14-36) U/L ALT 22 (9-52) U/L Alkaline Phosphatase 68 (38-126) U/L Total Protein 7.9 (6.3-8.2) g/dL Albumin 4.4 (3.5-5.0) g/dL Amylase 75 (30-110) U/L Lipase 110 (23-300) U/L Urine Color Yellow Urine Appearance Cloudy H (Clear) Urine pH 6.0 (5.0-8.0) Ur Specific [place] 1.018 (1.001-1.035) Urine Protein 1+ H (Negative) Urine Glucose (UA) Negative (Negative) Urine Ketones Negative (Negative) Urine Blood Negative (Negative) Urine Nitrite Negative (Negative) Urine Bilirubin Negative (Negative) Urine Urobilinogen 2.0 (<2.0) mg/dL Ur Leukocyte Esterase Small H (Negative) Urine RBC 4 (0-5) /hpf Urine WBC >182 H (0-5) /hpf Urine WBC Clumps Moderate H (None) /hpf Ur Squamous Epith Cells 10 H (0-4) /hpf Urine Mucus Rare H (None) /hpf Urine HCG, Qual Not Detected (Not Detectd) 03/19/18 03/19/18 Range/Units 03:30 03:30 WBC 9.4 (3.8-10.6) k/uL RBC 4.56 (3.80-5.40) m/uL Hgb 12.2 (11.4-16.0) gm/dL Hct 38.5 (34.0-46.0) % MCV 84.4 (80.0-100.0) fL MCH 26.7 (25.0-35.0) pg MCHC 31.6 (31.0-37.0) g/dL RDW 14.5 (11.5-15.5) % Plt Count 370 (150-450) k/uL Neutrophils % 64 % Lymphocytes % 29 % Monocytes % 6 % Eosinophils % 0 % Basophils % 0 % Neutrophils # 6.0 (1.3-7.7) k/uL Lymphocytes # 2.7 (1.0-4.8) k/uL Monocytes # 0.5 (0-1.0) k/uL Eosinophils # 0.0 (0-0.7) k/uL Basophils # 0.0 (0-0.2) k/uL Sodium (137-145) mmol/L Potassium (3.5-5.1) mmol/L Chloride (98-107) mmol/L Carbon Dioxide (22-30) mmol/L Anion Gap mmol/L BUN (7-17) mg/dL Creatinine (0.52-1.04) mg/dL Est GFR (CKD-EPI)AfAm (>60 ml/min/1.73 sqM) Est GFR (CKD-EPI)NonAf (>60 ml/min/1.73 sqM) Glucose (74-99) mg/dL Plasma Lactic Acid Mauro 0.8 (0.7-2.0) mmol/L Calcium (8.4-10.2) mg/dL Total Bilirubin (0.2-1.3) mg/dL AST (14-36) U/L ALT (9-52) U/L Alkaline Phosphatase (38-126) U/L Total Protein (6.3-8.2) g/dL Albumin (3.5-5.0) g/dL Amylase (30-110) U/L Lipase (23-300) U/L Urine Color Urine Appearance (Clear) Urine pH (5.0-8.0) Ur Specific [place] (1.001-1.035) Urine Protein (Negative) Urine Glucose (UA) (Negative) Urine Ketones (Negative) Urine Blood (Negative) Urine Nitrite (Negative) Urine Bilirubin (Negative) Urine Urobilinogen (<2.0) mg/dL Ur Leukocyte Esterase (Negative) Urine RBC (0-5) /hpf Urine WBC (0-5) /hpf Urine WBC Clumps (None) /hpf Ur Squamous Epith Cells (0-4) /hpf Urine Mucus (None) /hpf Urine HCG, Qual (Not Detectd) Disposition Decision to Admit Reason: Admit from EC Decision Date: 03/19/18 Decision Time: 04:34 <Radha Hughes - Last Filed: 03/19/18 04:28> <Paresh Mar - Last Filed: 03/19/18 10:26> Clinical Impression: Urinary tract infection Narrative: Failed outpatient treatment (Radha Hughes) Disposition: ADMITTED IP TO THIS HOSP Condition: Serious
[2018-03-19] MEDS: SODIUM CHLORIDE 0.9% 1,000 ML IV SCH (04:56)
[2018-03-19] MEDS: ACETAMINOPHEN TAB 325 MG TAB PO PRN ×2 (04:57→10:34)
[2018-03-19] MEDS: METOPROLOL TARTRATE 12.5 MG TAB PO SCH ×2 (07:51→20:56)
[2018-03-19] MEDS: MULTIVITAMINS, THERA 1 EACH TAB PO SCH (07:53)
--- NOTE | 2018-03-19 20:30 | P.HPIM ---
History of Present Illness H&P Date: 03/19/18 Chief Complaint: Abdominal pain nausea vomiting Date of service 03/19/2018 History of present token: This is a pleasant [address] Edward. Chronic stable medical conditions include chronic spina bifida causing paraplegia, chronic neurogenic bladder causing recurrent frequent UTIs patient does self-catheterization, GERD , chronic left hydroureter and hydronephrosis. Patient gets about with a wheelchair. Presently the . Patient got a chronic paraplegia. Patient presents with 2-3 days increasing abdominal pain more so in the lower abdomen. Nausea. Low-grade fever. Some chills. Patient urine became very dark and concentrated. Patient ER was started on IV antibiotics. IV fluids. Feeling very tired and rundown. 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 Does not smoke or drink alcohol. Family history: Grandparents had history of lung cancer VITAL SIGNS: 98.5, 102, 20, 127/81, 97% GENERAL: Average built, laying in bed, tired appearing. EYES: Pupils equal. Conjunctiva normal. HEENT: External appearance of nose and ears normal, oral cavity dry. NECK: JVD not raised; masses not palpable. HEART: First and second heart sounds are normal; no edema. LUNGS: Respiratory rate normal; clear to auscultation. ABDOMEN: Soft, mild mid abdomen tenderness, no guarding or rigidity, liver spleen not palpable, no masses palpable, Liu catheter in place. LYMPHATICS: No lymph nodes palpable in the axilla and neck. PSYCH: Alert and oriented x3; mood and affect normal. NEUROLOGICAL: Cranial nerves grossly intact; no facial asymmetry, power and sensation decreased in lower extremity. Investigations: Reviewed in context of the clinical picture and assessment and plan White count 9.4, hemoglobin 12.2, potassium 3.5, BNP 20, creatinine 0.70 UA-wbc's more than 182, WBC clumps moderate Urine hCG negative EKG-tracing interpreted showing sinus tachycardia Chest [id number] no obvious infiltrate Assessment and plan: -Acute complicated cystitis, secondary to self-catheterization, resulting in acute.abdomen with nausea vomiting or hydration -Acute dehydration from nausea vomiting -Chronic spina bifida causing chronic paraplegia -Chronic neurogenic bladder requiring self-catheterization -Chronic medical debility patient is wheelchair bound. Plan: Patient started on IV ceftriaxone. Home medications are resumed. We'll start the patient on lactated Ringer's 1 25 mL an hour. Care was discussed with the patient and at the bedside. Questions answered. 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 Past Anesthesia/Blood Transfusion Reactions: No Reported Reaction Past Psychological History: No Psychological Hx Reported Smoking Status: Never smoker Past Alcohol Use History: None Reported Past Drug Use History: None Reported - Past Family History Mother Family Medical History: Cancer Additional Family Medical History / Comment(s): grandparents - lung Father History Unknown: Yes Medications and Allergies Home Medications Medication Instructions Recorded Confirmed Type Metoprolol Tartrate [Lopressor] 12.5 mg PO BID 07/09/17 03/19/18 History Multivitamins, Thera [Multivitamin 1 tab PO DAILY 09/12/17 03/19/18 History (formulary)] Sulfamethox-Tmp 800-160Mg [Bactrim 1 tab PO Q12HR #14 tab 03/11/18 03/19/18 Rx DS 800-160 mg] Docusate [Colace] 100 mg PO DAILY 03/19/18 03/19/18 History Allergies Allergy/AdvReac Type Severity Reaction Status Date / Time latex Allergy Fever from Verified 03/19/18 09:30 cath Physical Exam Vitals: Vital Signs Temp Pulse Pulse Resp BP BP Pulse Ox 03/19/18 15:20 98.8 F 91 16 95/58 98 03/19/18 07:51 97.8 F 98 16 103/64 98 03/19/18 05:02 98.2 F 88 17 110/76 98 03/19/18 02:17 98.5 F 102 H 20 127/81 97 Intake and Output 03/19/18 03/19/18 03/19/18 06:59 14:59 22:59 Intake Total 600 Output Total 250 250 Balance 350 -250 Intake: Oral 600 Output: Urine 250 250 Straight 250 Other: Voiding Method Self-Catheterization Self-Catheterization Indwelling Catheter Weight 56.699 kg Results CBC & Chem 7: 03/19/18 03:30 03/19/18 03:30 Labs: Abnormal Lab Results - Last 24 Hours (Table) 03/19/18 03/19/18 Range/Units 03:15 03:30 BUN 20 H (7-17) mg/dL Urine Appearance Cloudy H (Clear) Urine Protein 1+ H (Negative) Ur Leukocyte Esterase Small H (Negative) Urine WBC >182 H (0-5) /hpf Urine WBC Clumps Moderate H (None) /hpf Ur Squamous Epith Cells 10 H (0-4) /hpf Urine Mucus Rare H (None) /hpf Microbiology - Last 24 Hours (Table) 03/19/18 03:15 Urine Culture - Preliminary Urine,Voided Thrombosis Risk Factor Assmnt - Choose All That Apply Any of the Below Risk Factors Present?: No Other Risk Factors: No Thrombosis Risk Factor Assessment Level: Very Low Risk
[2018-03-20] MEDS: SODIUM CHLORIDE 0.9% 1,000 ML IV SCH ×2 (01:57→20:26)
[2018-03-20] MEDS: cefTRIAXone IN SWFI 1,000 MG/10 ML SYRINGE IVP SCH (06:34)
[2018-03-20 07:51] LABS: Basophils % (A) 0 %; Eosinophils % (A) 0 %; HCT 36.5 % (34.0-46.0); HGB 11.3 gm/dL (11.4-16.0); Hypochromasia Slight; Lymphocytes # (A) 2.7 k/uL (1.0-4.8); Lymphocytes % (A) 36 %; MCH 27.2 pg (25.0-35.0); Mean Platelet Volume 6.7; Monocytes # (A) 0.4 k/uL (0-1.0); Monocytes % (A) 5 %; Neutrophils # (A) 4.3 k/uL (1.3-7.7); Neutrophils % (A) 57 %; Platelet Count 335 k/uL (150-450); RBC 4.15 m/uL (3.80-5.40); RDW 14.8 % (11.5-15.5); WBC 7.5 k/uL (3.8-10.6)
[2018-03-20 08:00] LABS: Chloride 113 mmol/L (98-107); Glucose 89 mg/dL (74-99); Potassium 4.4 mmol/L (3.5-5.1); Sodium 140 mmol/L (137-145)
[2018-03-20 08:01] LABS: Anion Gap 9 mmol/L; Blood Urea Nitrogen 12 mg/dL (7-17); Calcium 8.6 mg/dL (8.4-10.2); Carbon Dioxide 18 mmol/L (22-30)
[2018-03-20] MEDS: METOPROLOL TARTRATE 12.5 MG TAB PO SCH ×2 (08:03→21:34)
[2018-03-20] MEDS: MULTIVITAMINS, THERA 1 EACH TAB PO SCH (11:44)
[2018-03-20] MEDS: ACETAMINOPHEN TAB 325 MG TAB PO PRN (20:24)
[2018-03-20] MEDS ORDERED: SENNOSIDES-DOCUSATE SODIUM 1 EACH TAB PO STA (21:32)
--- NOTE | 2018-03-20 23:44 | P.PN ---
Progress Note - Text Progress Note Date: 03/20/18 Presenting complaint: Concentrated urine Interval history: This is a pleasant [address] Edward. Chronic stable medical conditions include chronic spina bifida causing paraplegia, chronic neurogenic bladder causing recurrent frequent UTIs patient does self-catheterization, GERD , chronic left hydroureter and hydronephrosis. Patient gets about with a wheelchair. Presently the . Patient got a chronic paraplegia. Patient presents with 2-3 days increasing abdominal pain more so in the lower abdomen. Nausea. Low-grade fever. Some chills. Patient urine became very dark and concentrated. Patient ER was started on IV antibiotics. IV fluids. Patient diagnosed with acute complicated cystitis. Today-feels better. Nausea is gone down. Did tolerate her meals. Catheter was flushed. There urine output. Laying in bed. Her at the bedside. Review of systems: Was done for constitutional, cardiovascular, GI, pulmonary. relevant finding as above Current medications reviewed that included: IV ceftriaxone, IV fluids On examination: VITAL SIGNS: [98.1, 104, 17, 95/64, 92% on room air] GENERAL APPEARANCE: Laying in bed comfortable HEENT: Normal external appearance of nose and ear. Oral cavity normal EYES: Pupils equal. Conjunctiva normal. NECK: JVD not raised. Mass not palpable. RESPIRATORY: Respiratory effort normal. Lungs clear to auscultation. CARDIOVASCULAR: First and second sounds normal. No edema. ABDOMEN: Soft. Liver and spleen not palpable. No tenderness. No mass palpable. Liu catheter in place PSYCHIATRY: Alert and oriented x3. Mood and affect normal. Neurological-paraplegia Investigations: White count 7.5, hemoglobin 11.3, potassium 4.4, BUN 12, creatinine 0.6 Urine culture-negative Assessment: -Acute complicated cystitis, secondary to self-catheterization, resulting in acute.abdomen with nausea vomiting or hydration -Acute dehydration from nausea vomiting -Chronic spina bifida causing chronic paraplegia -Chronic neurogenic bladder requiring self-catheterization -Chronic medical debility patient is wheelchair bound. Plan: Q the patient on IV ceftriaxone. Continue with IV fluids. Keep the Liu catheter overnight. Care was discussed with the patient and . Questions were answered.
[2018-03-21] MEDS: cefTRIAXone IN SWFI 1,000 MG/10 ML SYRINGE IVP SCH (06:09)
[2018-03-21 07:42] VITALS: RESP 16
[2018-03-21 07:52] LABS: Basophils % (A) 0 %; Eosinophils % (A) 0 %; HCT 37.2 % (34.0-46.0); Hypochromasia Slight; Lymphocytes # (A) 2.9 k/uL (1.0-4.8); Lymphocytes % (A) 43 %; MCH 27.5 pg (25.0-35.0); MCHC 32.1 g/dL (31.0-37.0); MCV 85.6 fL (80.0-100.0); Mean Platelet Volume 6.3; Monocytes # (A) 0.3 k/uL (0-1.0); Monocytes % (A) 4 %; Neutrophils # (A) 3.3 k/uL (1.3-7.7); Neutrophils % (A) 50 %; Platelet Count 325 k/uL (150-450); RBC 4.35 m/uL (3.80-5.40); RDW 14.7 % (11.5-15.5); WBC 6.7 k/uL (3.8-10.6)
[2018-03-21 08:19] LABS: Anion Gap 8 mmol/L; Blood Urea Nitrogen 6 mg/dL (7-17); Calcium 8.6 mg/dL (8.4-10.2); Carbon Dioxide 20 mmol/L (22-30); Chloride 110 mmol/L (98-107); Glucose 81 mg/dL (74-99); Potassium 4.3 mmol/L (3.5-5.1); Sodium 138 mmol/L (137-145)
[2018-03-21] MEDS ORDERED: SENNOSIDES-DOCUSATE SODIUM 1 EACH TAB PO SCH (09:00)
[2018-03-21] MEDS: METOPROLOL TARTRATE 12.5 MG TAB PO SCH (09:36)
[2018-03-21] MEDS: MULTIVITAMINS, THERA 1 EACH TAB PO SCH (09:36)
--- NOTE | 2018-03-21 14:50 | P.DS ---
Providers Date of admission: 03/19/18 04:28 Expected date of discharge: 03/21/18 Attending physician: Forrest Ames Primary care physician: Erasmo Edward [facility] Course: Final diagnosis: -Acute complicated cystitis, secondary to self-catheterization, resulting in acute.abdomen with nausea vomiting or hydration -Acute dehydration from nausea vomiting -Chronic spina bifida causing chronic paraplegia -Chronic neurogenic bladder requiring self-catheterization -Chronic medical debility patient is wheelchair bound. Hospital course: This is a pleasant [address] Edward. Chronic stable medical conditions include chronic spina bifida causing paraplegia, chronic neurogenic bladder causing recurrent frequent UTIs patient does self-catheterization, GERD , chronic left hydroureter and hydronephrosis. Patient gets about with a wheelchair. Presently the . Patient got a chronic paraplegia. Patient presents with 2-3 days increasing abdominal pain more so in the lower abdomen. Nausea. Low-grade fever. Some chills. Patient urine became very dark and concentrated. Patient ER was started on IV antibiotics. IV fluids. Patient diagnosed with acute complicated cystitis. Patient now feeling much better. Tolerating a diet. Urine output much improved. No abdominal pain. Care was discussed with the patient and questions were answered. Patient cultures were negative On examination: 97.6-94-16-118/77, and 97% Abdomen soft nontender Paraplegia Labs: Normal white count, hemoglobin 12 Patient Condition at Discharge: Stable Plan - Discharge Summary New Discharge Prescriptions: New Sennosides-Docusate Sodium [Senokot-S] 1 tab PO DAILY #30 tablet Cefuroxime [Ceftin] 250 mg PO DAILY #6 tab Continue Metoprolol Tartrate [Lopressor] 12.5 mg PO BID Multivitamins, Thera [Multivitamin (formulary)] 1 tab PO DAILY Discontinued Sulfamethox-Tmp 800-160Mg [Bactrim DS 800-160 mg] 1 tab PO Q12HR #14 tab Docusate [Colace] 100 mg PO DAILY Discharge Medication List Metoprolol Tartrate [Lopressor] 12.5 mg PO BID 07/09/17 [History] Multivitamins, Thera [Multivitamin (formulary)] 1 tab PO DAILY 09/12/17 [History ] Cefuroxime [Ceftin] 250 mg PO DAILY #6 tab 03/21/18 [Rx] Sennosides-Docusate Sodium [Senokot-S] 1 tab PO DAILY #30 tablet 03/21/18 [Rx] Follow up Appointment(s)/Referral(s): Erasmo Edward DO [Primary Care Provider] - 3 Days Patient Instructions/Handouts: Urinary Tract Infection in Women (DC), How to Catheterize Yourself (Woman) (GEN) Activity/Diet/Wound Care/Special Instructions: Regular diet. Activity as tolerated, change positions every couple hours.
[2018-03-21 15:42] VITALS: BP 114/71; PULSE 121; TEMP 98.4
== END 2018-03-21 15:41 | disposition home or self-care (01) ==
LOC: EC 02:06 → 4MS4W 04:28
PROVIDERS: ADMIT Hospitalist; ATTEND Hospitalist
DX: N30.00 Acute cystitis without hematuria (principal); N13.6 Pyonephrosis; E86.0 Dehydration; R11.2 Nausea with vomiting, unspecified; G82.20 Paraplegia, unspecified; Q05.9 Spina bifida, unspecified; N31.9 Neuromuscular dysfunction of bladder, unspecified; R94.4 Abnormal results of kidney function studies; Z99.3 Dependence on wheelchair; K21.9 Gastro-esophageal reflux disease without esophagitis; Z87.440 Personal history of urinary (tract) infections; Z79.899 Other long term (current) drug therapy; Z91.040 Latex allergy status; Z87.442 Personal history of urinary calculi; Z98.2 Presence of cerebrospinal fluid drainage device; Z80.1 Family history of malignant neoplasm of trachea, bronchus and lung
CPT/HCPCS: 36415; 80048; 80053; 81001; 81025; 82150; 83605; 83690; 85025; 87040; 87086; 96361; 96374; 96375; 96376; 99284

== ENCOUNTER → 2018-04-23 | Outpatient (CLI) | payer MEDICARE, OTHER | END | disposition home or self-care (01) | LOC: RADUSWWP 09:52 | PROVIDERS: ATTEND Podiatrist Foot & Ankle Surgery | DX: I73.9 Peripheral vascular disease, unspecified (principal) | CPT/HCPCS: 93923 ==

== ENCOUNTER 2018-05-01 19:31 | Emergency (ER) | payer MEDICARE, OTHER ==
[2018-05-01 19:39] VITALS: TEMP 99
[2018-05-01] MEDS ORDERED: PSEUDOEPHEDRINE 30 MG TAB PO STA (20:09)
--- NOTE | 2018-05-01 20:46 | XR ---
EXAMINATION TYPE: XR chest 2V DATE OF EXAM: 05/01/2018 COMPARISON: 11/02/2017 HISTORY: Cough TECHNIQUE: Frontal and lateral views of the chest are obtained. FINDINGS: Heart and mediastinum are normal. Lungs are clear. Diaphragm is normal. There is ventricul operitoneal shunt catheter. There is thoracic dextroscoliosis. IMPRESSION: No active cardiopulmonary disease. No change.
[2018-05-01 21:00] LABS: Appearance,Urine Cloudy (Clear); Bacteria,Urine Rare /hpf; Bilirubin,Urine Negative (Negative); Blood,Urine Negative (Negative); Color,Urine Yellow; Glucose,Urine (UA) Negative (Negative); Ketones,Urine Negative (Negative); Leukocyte Esterase,Urine Moderate (Negative); Nitrite,Urine Negative (Negative); PH, Urine 6.5 (5.0-8.0); Protein,Urine Trace (Negative); RBC,Urine 6 /hpf (0-5); Specific Gravity,Urine 1.013 (1.001-1.035); Squamous Epithelial Cell,Urine 1 /hpf (0-4); Urobilinogen,Urine <2.0 mg/dL (<2.0); WBC,Urine 46 /hpf (0-5)
[2018-05-01] MEDS ORDERED: HYDROcodone/APAP 5-325MG 1 EACH TAB PO STA (22:05)
[2018-05-01] MEDS ORDERED: CEFDINIR 300 MG CAP PO STA (22:32)
--- NOTE | 2018-05-01 22:36 | ED ---
URI HPI - General Source: patient Mode of arrival: wheelchair Limitations: no limitations <Radha Hughes - Last Filed: 05/02/18 00:50> <Daniella Harrison - Last Filed: 05/02/18 02:09> - General Chief Complaint: Upper Respiratory Infection Stated Complaint: congestion Time Seen by Provider: 05/01/18 19:55 - History of Present Illness Initial Comments: 27-year-old female patient with past medical history significant for spina bifida, wheelchair bound, frequent urinary tract infections, self- catheterization due to neurogenic bladder, presents to the emergency department today for evaluation of upper respiratory symptoms and one episode of vomiting. She states also have a little congestion and cough for the last 3-4 days. Patient states that her nasal congestion makes it difficult for her to sleep. States she has associated sore throat. She denies any fevers or chills. Denies any sputum production. Denies any shortness of breath. Sates that she did have one episode of vomiting today. She is concerned she may have urinary tract infection as she does get this frequently with little or no symptoms. Patient denies any recent rash, abdominal pain, nausea, vomiting, diarrhea, constipation, back pain, numbness, tingling, dizziness, weakness, hematuria, dysuria, urinary urgency, urinary frequency, headache, visual changes, or any other complaints. (Radha Hughes) - Related Data Home Medications Medication Instructions Recorded Confirmed Metoprolol Tartrate [Lopressor] 12.5 mg PO BID 07/09/17 05/01/18 Multivitamins, Thera [Multivitamin 1 tab PO DAILY 09/12/17 05/01/18 (formulary)] HYDROcodone/APAP 5-325MG [[place] 1 tab PO DAILY PRN 05/01/18 05/01/18 5-325] Previous Rx's Medication Instructions Recorded Sennosides-Docusate Sodium 1 tab PO DAILY #30 tablet 03/21/18 [Senokot-S] Cefuroxime [Ceftin] 250 mg PO BID #20 tab 05/01/18 Allergies Allergy/AdvReac Type Severity Reaction Status Date / Time latex Allergy Fever from Verified 05/01/18 20:06 cath Review of Systems ROS Other: All systems not noted in ROS Statement are negative. <Radha Hughes - Last Filed: 05/02/18 00:50> ROS Other: All systems not noted in ROS Statement are negative. <Daniella Harrison P - Last Filed: 05/02/18 02:09> ROS Statement: Those systems with pertinent positive or pertinent negative responses have been documented in the HPI. 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 [employer] shunt. Past Anesthesia/Blood Transfusion Reactions: No Reported Reaction Past Psychological History: No Psychological Hx Reported Smoking Status: Never smoker Past Alcohol Use History: None Reported Past Drug Use History: None Reported - Past Family History Mother Family Medical History: Cancer Additional Family Medical History / Comment(s): grandparents - lung Father History Unknown: Yes <Radha Hughes M - Last Filed: 05/02/18 00:50> General Exam Limitations: no limitations General appearance: alert, in no apparent distress Eye exam: Present: normal appearance, PERRL, EOMI. Absent: scleral icterus, conjunctival injection, periorbital swelling ENT exam: Present: mucous membranes moist, TM's normal bilaterally. Absent: normal exam, normal oropharynx (Mild pharyngeal erythema with no tonsillar exudate or hypertrophy.) Neck exam: Present: normal inspection. Absent: tenderness, meningismus, lymphadenopathy Respiratory exam: Present: normal lung sounds bilaterally. Absent: respiratory distress, wheezes, rales, rhonchi, stridor Cardiovascular Exam: Present: regular rate, normal rhythm, normal heart sounds. Absent: systolic murmur, diastolic murmur, rubs, gallop, clicks GI/Abdominal exam: Present: soft, normal bowel sounds. Absent: distended, tenderness, guarding, rebound, rigid Neurological exam: Present: alert, oriented X3, CN II-XII intact Psychiatric exam: Present: normal affect, normal mood Skin exam: Present: warm, dry, intact, normal color. Absent: rash <Radha Hughes - Last Filed: 05/02/18 00:50> Vital Signs 05/01/18 05/01/18 19:37 22:56 Temperature 99 F Pulse Rate 109 H 101 H Respiratory 16 18 Rate Blood Pressure 135/82 120/73 O2 Sat by Pulse 98 100 Oximetry Medical Decision Making - Radiology Data Radiology results: report reviewed, image reviewed <Radha Hughes - Last Filed: 05/02/18 00:50> <Daniella Harrison - Last Filed: 05/02/18 02:09> - Medical Decision Making 27-year-old female patient presented to the emergency department today for evaluation of upper respiratory symptoms and one episode of vomiting. Physical examination was relatively unremarkable. Lungs are clear to auscultation with good air movement. There was evidence of pharyngeal erythema with no tonsillar exudate or hypertrophy. No lymphadenopathy. Abdomen was soft and nontender. Chest x-ray showed no acute cardiopulmonary process. Urinalysis did show evidence for urinary tract infection with moderate leukocyte esterase and 46 white blood cells. We will treat patient for urinary tract infection. Did discuss that her symptoms are most likely related to viral upper respiratory infection. She is instructed take [id number] nasal decongestants, increase fluids, and rest. She is instructed to follow-up with her primary care physician for recheck in 1-2 days. Return parameters discussed in detail. She verbalizes understanding and agrees with this plan. (Radha Hughes) I was available for consultation in the emergency department. The history and physical exam were done by the midlevel provider. I was consulted for this patient's care. I reviewed the case with the midlevel provider and based on their presentation of the patient, I agree with the assessment, medical decision making and plan of care as documented. (Daniella Harrison) - Lab Data Lab Results 05/01/18 Range/Units 20:10 Urine Color Yellow Urine Appearance Cloudy H (Clear) Urine pH 6.5 (5.0-8.0) Ur Specific [place] 1.013 (1.001-1.035) Urine Protein Trace H (Negative) Urine Glucose (UA) Negative (Negative) Urine Ketones Negative (Negative) Urine Blood Negative (Negative) Urine Nitrite Negative (Negative) Urine Bilirubin Negative (Negative) Urine Urobilinogen <2.0 (<2.0) mg/dL Ur Leukocyte Esterase Moderate H (Negative) Urine RBC 6 H (0-5) /hpf Urine WBC 46 H (0-5) /hpf Ur Squamous Epith Cells 1 (0-4) /hpf Urine Bacteria Rare H (None) /hpf - Radiology Data Two-view x-ray of the chest was obtained. Heart media's enema normal. Lungs are clear. Diaphragm is normal. There is a ventriculoperitoneal shunt catheter. There is thoracic dextroscoliosis. Impression by Dr. Robledo shows no active cardiopulmonary disease. No change. (Radha Hughes) Disposition Is patient prescribed a controlled substance at d/c from ED?: No Time of Disposition: 22:35 <Radha Hughes - Last Filed: 05/02/18 00:50> <Daniella Harrison - Last Filed: 05/02/18 02:09> Clinical Impression: Viral upper respiratory illness, Urinary tract infection Disposition: HOME SELF-CARE Condition: Good Instructions: Urinary Tract Infection in Women (ED), Upper Respiratory Infection (ED) Additional Instructions: Increase fluids. Complete antibiotics as prescribed. Follow-up with your primary care physician for recheck in 1-2 days. Return here immediately for any new, worsening, or concerning symptoms. Prescriptions: Cefuroxime [Ceftin] 250 mg PO BID #20 tab Referrals: Erasmo Edward DO [Primary Care Provider] - 1-2 days
[2018-05-01 22:58] VITALS: BP 120/73; PULSE 101; RESP 18
== END 2018-05-01 23:05 | disposition home or self-care (01) ==
LOC: EC 19:31
DX: J06.9 Acute upper respiratory infection, unspecified (principal); N39.0 Urinary tract infection, site not specified; Z79.899 Other long term (current) drug therapy; Z91.040 Latex allergy status; Z98.2 Presence of cerebrospinal fluid drainage device; Z99.3 Dependence on wheelchair
CPT/HCPCS: 71046; 81001; 87086; 99283

== ENCOUNTER 2018-05-10 16:00 | Emergency (ER) | payer MEDICARE, OTHER ==
[2018-05-10] MEDS ORDERED: SODIUM CHLORIDE 0.9% 2,000 ML IV STA (16:12)
[2018-05-10] MEDS ORDERED: ONDANSETRON 4 MG/2 ML VIAL IVP STA (16:12)
--- NOTE | 2018-05-10 16:24 | ED ---
General Adult HPI - General Chief complaint: Nausea/Vomiting/Diarrhea Stated complaint: Vomiting Time Seen by Provider: 05/10/18 16:07 Source: patient, RN notes reviewed Mode of arrival: wheelchair Limitations: no limitations - History of Present Illness Initial comments: This is a pleasant 27-year-old female with a history of spina bifida who presents to the emergency department today complaining of nausea and vomiting. Patient states she has been treated for urinary tract infection which started on May 04. She was seen here and has been on cefuroxime 250 mg twice daily. Patient states that she is still having some problems with urination as far as frequency. Patient states she has mild left lower back pain. Patient complaining of an upset stomach but really no significant abdominal pain although she is having some cramping around her umbilicus. Patient states that this is been going on since the UTI started. Patient denies any shortness of breath or chest pain. No sore throat. No earache. No skin rashes or lesions. No vaginal discharge. Patient is currently on her menses. No recent travel. No other contacts. No constant abdominal pain. No known fever. - Related Data Home Medications Medication Instructions Recorded Confirmed Metoprolol Tartrate [Lopressor] 12.5 mg PO BID 07/09/17 05/01/18 Multivitamins, Thera [Multivitamin 1 tab PO DAILY 09/12/17 05/01/18 (formulary)] HYDROcodone/APAP 5-325MG [[place] 1 tab PO DAILY PRN 05/01/18 05/01/18 5-325] Previous Rx's Medication Instructions Recorded Sennosides-Docusate Sodium 1 tab PO DAILY #30 tablet 03/21/18 [Senokot-S] Cefuroxime [Ceftin] 250 mg PO BID #20 tab 05/01/18 Doxycycline Monohydrate [Monodox] 100 mg PO Q12HR #20 cap 05/10/18 Ondansetron Odt [Zofran Odt] 4 mg PO Q6HR PRN #10 tab 05/10/18 Allergies Allergy/AdvReac Type Severity Reaction Status Date / Time latex Allergy Fever from Verified 05/10/18 16:05 cath Review of Systems ROS Statement: Those systems with pertinent positive or pertinent negative responses have been documented in the HPI. ROS Other: All systems not noted in ROS Statement are negative. 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 [employer] shunt. Past Anesthesia/Blood Transfusion Reactions: No Reported Reaction Past Psychological History: No Psychological Hx Reported Smoking Status: Never smoker Past Alcohol Use History: None Reported Past Drug Use History: None Reported - Past Family History Mother Family Medical History: Cancer Additional Family Medical History / Comment(s): grandparents - lung Father History Unknown: Yes General Exam - General Exam Comments Initial Comments: This is a pleasant 27-year-old female of short stature who does not appear to be in any significant distress at this point. Peripheral perfusion appears adequate. Capillary refills less than 2 seconds. Limitations: no limitations General appearance: alert, in no apparent distress Head exam: Present: atraumatic, normocephalic, normal inspection Eye exam: Present: normal appearance, PERRL, EOMI. Absent: scleral icterus, conjunctival injection, periorbital swelling ENT exam: Present: normal exam, normal oropharynx, mucous membranes moist Neck exam: Present: normal inspection. Absent: tenderness, meningismus, lymphadenopathy Respiratory exam: Present: normal lung sounds bilaterally. Absent: respiratory distress, wheezes, rales, rhonchi, stridor Cardiovascular Exam: Present: normal rhythm, tachycardia, normal heart sounds. Absent: systolic murmur, diastolic murmur, rubs, gallop, clicks GI/Abdominal exam: Present: soft, tenderness (Patient has mild, generalized tenderness around the umbilicus.), hyperactive bowel sounds. Absent: distended , guarding, rebound, rigid Extremities exam: Present: normal inspection, full ROM, normal capillary refill. Absent: tenderness, pedal edema, joint swelling, calf tenderness Back exam: Present: normal inspection. Absent: CVA tenderness (R), CVA tenderness (L), rash noted Neurological exam: Present: alert, oriented X3, CN II-XII intact Psychiatric exam: Present: normal affect, normal mood Skin exam: Present: warm, dry, intact, normal color. Absent: rash Course Vital Signs 05/10/18 05/10/18 05/10/18 16:04 17:48 17:50 Temperature 98.1 F Pulse Rate 118 H 102 H Respiratory 16 18 Rate Blood Pressure 131/83 121/88 O2 Sat by Pulse 98 100 96 Oximetry 05/10/18 05/10/18 05/10/18 18:00 18:30 19:19 Temperature Pulse Rate 96 101 H 106 H Respiratory 18 18 18 Rate Blood Pressure 121/88 118/85 133/93 O2 Sat by Pulse 98 97 99 Oximetry - Reevaluation(s) Reevaluation #1: 05/10/18 19:58 Patient was reevaluated and is improved. We did finally get blood work done with the aid of ultrasound and femoral vein access. Procedures - Procedures Initial comment: Femoral venipuncture was performed with the aid of ultrasound by me. Patient tolerated well. Medical Decision Making - Medical Decision Making Patient was initially put on Bactrim and ciprofloxacin, subsequently put on cefuroxime. However, we do have a urine culture from the previous visit which shows staph epidermidis with multi agent resistance. However, it is susceptible to doxycycline and Macrobid. It is also susceptible to gentamicin. I'm going to give her one time dose here. We did have trouble given the patient's blood work initially. A femoral venous stick had to be done. Patient is feeling better after fluid resuscitation and Zofran. Patient does not appear to be ill or toxic. Patient is afebrile. I will await laboratory investigations to make a decision on admission or not. Of course the patient has been on antibiotics all of which the staph epidermidis was resistant to. 8:50 PM. Patient feeling much better. Patient able to hold down by mouth fluids. Lactic acid was 0.9. Patient had normal white blood cell count. I'm going to treat the patient with doxycycline per the urine culture report. I will give her first dose here. We will also give the patient a prescription for Zofran. However we'll have her follow-up within the next 48 hours with her regular physician. I did tell her to return to the ER immediately if fever develops vomiting recurs, abdominal pain develops, or any other problems arise. Patient understands the plan. Patient concurs with the treatment plan. Return and follow-up parameters discussed. Patient's vital signs have improved - Lab Data Result diagrams: 05/10/18 19:53 Lab Results 05/10/18 05/10/18 05/10/18 Range/Units 17:00 17:00 19:53 WBC 8.7 (3.8-10.6) k/uL RBC 4.07 (3.80-5.40) m/uL Hgb 10.7 L (11.4-16.0) gm/dL Hct 33.9 L (34.0-46.0) % MCV 83.3 (80.0-100.0) fL MCH 26.4 (25.0-35.0) pg MCHC 31.7 (31.0-37.0) g/dL RDW 13.6 (11.5-15.5) % Plt Count 383 (150-450) k/uL Neutrophils % 56 % Lymphocytes % 37 % Monocytes % 5 % Eosinophils % 0 % Basophils % 1 % Neutrophils # 4.8 (1.3-7.7) k/uL Lymphocytes # 3.2 (1.0-4.8) k/uL Monocytes # 0.4 (0-1.0) k/uL Eosinophils # 0.0 (0-0.7) k/uL Basophils # 0.0 (0-0.2) k/uL Hypochromasia Slight Plasma Lactic Acid [place] (0.7-2.0) mmol/L Urine Color Yellow Urine Appearance Turbid H (Clear) Urine pH 6.0 (5.0-8.0) Ur Specific [place] 1.016 (1.001-1.035) Urine Protein 1+ H (Negative) Urine Glucose (UA) Negative (Negative) Urine Ketones Negative (Negative) Urine Blood Small H (Negative) Urine Nitrite Positive H (Negative) Urine Bilirubin Negative (Negative) Urine Urobilinogen <2.0 (<2.0) mg/dL Ur Leukocyte Esterase Large H (Negative) Urine RBC 37 H (0-5) /hpf Urine WBC >182 H (0-5) /hpf Urine WBC Clumps Many H (None) /hpf Ur Squamous Epith Cells 5 H (0-4) /hpf Urine Bacteria Many H (None) /hpf Urine Mucus Rare H (None) /hpf Urine HCG, Qual Not Detected (Not Detectd) Heterophile Antibody (Negative) 05/10/18 05/10/18 Range/Units 19:53 19:53 WBC (3.8-10.6) k/uL RBC (3.80-5.40) m/uL Hgb (11.4-16.0) gm/dL Hct (34.0-46.0) % MCV (80.0-100.0) fL MCH (25.0-35.0) pg MCHC (31.0-37.0) g/dL RDW (11.5-15.5) % Plt Count (150-450) k/uL Neutrophils % % Lymphocytes % % Monocytes % % Eosinophils % % Basophils % % Neutrophils # (1.3-7.7) k/uL Lymphocytes # (1.0-4.8) k/uL Monocytes # (0-1.0) k/uL Eosinophils # (0-0.7) k/uL Basophils # (0-0.2) k/uL Hypochromasia Plasma Lactic Acid [place] 0.9 (0.7-2.0) mmol/L Urine Color Urine Appearance (Clear) Urine pH (5.0-8.0) Ur Specific [place] (1.001-1.035) Urine Protein (Negative) Urine Glucose (UA) (Negative) Urine Ketones (Negative) Urine Blood (Negative) Urine Nitrite (Negative) Urine Bilirubin (Negative) Urine Urobilinogen (<2.0) mg/dL Ur Leukocyte Esterase (Negative) Urine RBC (0-5) /hpf Urine WBC (0-5) /hpf Urine WBC Clumps (None) /hpf Ur Squamous Epith Cells (0-4) /hpf Urine Bacteria (None) /hpf Urine Mucus (None) /hpf Urine HCG, Qual (Not Detectd) Heterophile Antibody Negative (Negative) Disposition Clinical Impression: Urinary tract infection, Vomiting Disposition: HOME SELF-CARE Condition: Good Instructions: Acute Nausea and Vomiting (ED), Urinary Tract Infection in Women (ED) Additional Instructions: Take the antibiotics as directed until it is gone. Follow-up with your regular physician within the next 2 days for reevaluation. Call the morning for an appointment. If symptoms worsen or any other problems arise return to the ER immediately. Prescriptions: Doxycycline Monohydrate [Monodox] 100 mg PO Q12HR #20 cap Ondansetron Odt [Zofran Odt] 4 mg PO Q6HR PRN #10 tab PRN Reason: Nausea Is patient prescribed a controlled substance at d/c from ED?: No Referrals: Erasmo Edward DO [Primary Care Provider] - 1-2 days
[2018-05-10 17:33] LABS: Appearance,Urine Turbid (Clear); Bacteria,Urine Many /hpf; Bilirubin,Urine Negative (Negative); Blood,Urine Small (Negative); Color,Urine Yellow; Glucose,Urine (UA) Negative (Negative); Ketones,Urine Negative (Negative); Leukocyte Esterase,Urine Large (Negative); Mucus,Urine Rare /hpf; Nitrite,Urine Positive (Negative); Protein,Urine 1+ (Negative); RBC,Urine 37 /hpf (0-5); Specific Gravity,Urine 1.016 (1.001-1.035); Squamous Epithelial Cell,Urine 5 /hpf (0-4); Urobilinogen,Urine <2.0 mg/dL (<2.0); WBC,Urine >182 /hpf (0-5)
[2018-05-10 18:12] VITALS: RESP 18
[2018-05-10] MEDS ORDERED: LEVOFLOXACIN 500MG-D5W PMX 500 MG in DEXTROSE/WATER 1 100ML.BAG IVPB STA (19:36)
[2018-05-10] MEDS ORDERED: GENTAMICIN 280 MG in SODIUM CHLORIDE 0.9% 100 ML IVPB ONE (20:00)
[2018-05-10 20:24] LABS: Basophils % (A) 1 %; Eosinophils % (A) 0 %; HCT 33.9 % (34.0-46.0); HGB 10.7 gm/dL (11.4-16.0); Hypochromasia Slight; Lymphocytes # (A) 3.2 k/uL (1.0-4.8); Lymphocytes % (A) 37 %; MCH 26.4 pg (25.0-35.0); MCHC 31.7 g/dL (31.0-37.0); MCV 83.3 fL (80.0-100.0); Mean Platelet Volume 6.4; Monocytes # (A) 0.4 k/uL (0-1.0); Monocytes % (A) 5 %; Neutrophils # (A) 4.8 k/uL (1.3-7.7); Neutrophils % (A) 56 %; Platelet Count 383 k/uL (150-450); RBC 4.07 m/uL (3.80-5.40); RDW 13.6 % (11.5-15.5); WBC 8.7 k/uL (3.8-10.6)
[2018-05-10 20:51] LABS: ALT 28 U/L (9-52); AST 19 U/L (14-36); Albumin 3.4 g/dL (3.5-5.0); Alkaline Phosphatase 58 U/L (38-126); Anion Gap 4 mmol/L; Blood Urea Nitrogen 14 mg/dL (7-17); C Reactive Protein 5.6 mg/L (<10.0); Calcium 8.6 mg/dL (8.4-10.2); Carbon Dioxide 21 mmol/L (22-30); Chloride 114 mmol/L (98-107); Glucose 93 mg/dL (74-99); Lipase 151 U/L (23-300); Magnesium 1.9 mg/dL (1.6-2.3); Potassium 4.4 mmol/L (3.5-5.1); Sodium 139 mmol/L (137-145); Total Bilirubin 0.2 mg/dL (0.2-1.3); Total Protein 6.5 g/dL (6.3-8.2)
[2018-05-10] MEDS ORDERED: DOXYCYCLINE 100 MG CAP PO STA (20:51)
[2018-05-10 22:06] VITALS: BP 120/82; PULSE 94; TEMP 99.1
== END 2018-05-10 22:10 | disposition home or self-care (01) ==
LOC: EC 16:00
DX: N39.0 Urinary tract infection, site not specified (principal); R11.2 Nausea with vomiting, unspecified; R00.0 Tachycardia, unspecified; R19.12 Hyperactive bowel sounds; Q05.9 Spina bifida, unspecified; Q65.02 Congenital dislocation of left hip, unilateral; Z91.040 Latex allergy status; Z79.899 Other long term (current) drug therapy; Z99.3 Dependence on wheelchair; Z98.890 Other specified postprocedural states; Z53.8 Procedure and treatment not carried out for other reasons
CPT/HCPCS: 36415; 80053; 83605; 83690; 83735; 85025; 86140; 86308; 81001; 81025; 87086; 99284; 96365; 96375; 96361 ×3; J2405; J1580; 87077; 87186

== ENCOUNTER 2018-05-27 16:22 | Emergency (ER) | payer MEDICARE, OTHER ==
[2018-05-27] MEDS ORDERED: ACETAMINOPHEN TAB 500 MG TAB PO STA (16:47)
[2018-05-27] MEDS ORDERED: ONDANSETRON ODT 4 MG TAB PO STA (16:47)
--- NOTE | 2018-05-27 16:50 | ED ---
General Adult HPI - General Chief complaint: Upper Respiratory Infection Stated complaint: Congested, [place] Time Seen by Provider: 05/27/18 16:29 Source: patient, RN notes reviewed, old records reviewed Mode of arrival: ambulatory Limitations: no limitations - History of Present Illness Initial comments: Patient's 27-year-old female presents emergency room today with chief complaint of cough congestion over last 3 days. Patient does not that she's had white sputum production. Patient states that she has felt hot and cold. She states that she's had increased cough congestion feels short of breath when she gets coughing that she cannot clearance.. Patient does admit that boyfriend has had some similar symptoms at home. Patient denies any other complaints or symptoms. Patient denies any recent fever, chills, shortness of breath, chest pain, back pain, abdominal pain, numbness or tingling, dysuria or hematuria, constipation or diarrhea, headaches or visual changes, or any other complaints. - Related Data Home Medications Medication Instructions Recorded Confirmed Metoprolol Tartrate [Lopressor] 12.5 mg PO BID 07/09/17 05/27/18 Multivitamins, Thera [Multivitamin 1 tab PO DAILY 09/12/17 05/27/18 (formulary)] Acetaminophen Tab [Tylenol] 1,000 mg PO Q6HR 05/27/18 05/27/18 Previous Rx's Medication Instructions Recorded Sennosides-Docusate Sodium 1 tab PO DAILY #30 tablet 03/21/18 [Senokot-S] Allergies Allergy/AdvReac Type Severity Reaction Status Date / Time latex Allergy Fever from Verified 05/27/18 17:44 cath Review of Systems ROS Statement: Those systems with pertinent positive or pertinent negative responses have been documented in the HPI. ROS Other: All systems not noted in ROS Statement are negative. 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 [employer] shunt. Past Anesthesia/Blood Transfusion Reactions: No Reported Reaction Past Psychological History: No Psychological Hx Reported Smoking Status: Never smoker Past Alcohol Use History: None Reported Past Drug Use History: None Reported - Past Family History Mother Family Medical History: Cancer Additional Family Medical History / Comment(s): grandparents - lung Father History Unknown: Yes General Exam - General Exam Comments Initial Comments: General: The patient is awake and alert, in no distress, and does not appear acutely ill. Eye: Pupils are equal, round and reactive to light. Extra-ocular movements are intact. No nystagmus. There is normal conjunctiva bilaterally. No signs of icterus. Ears, nose, mouth and throat: There are moist mucous membranes and no oral lesions. Mild tenderness over the frontal sinuses. Neck: The neck is supple, there is no tenderness or JVD. Cardiovascular: There is a regular rate and rhythm. No murmur, rub or gallop is appreciated. Respiratory: Lungs are clear to auscultation, respirations are non-labored, breath sounds are equal. No wheezes, stridor, rales, or rhonchi. Musculoskeletal: Normal ROM, no tenderness. Sensation intact. Strength 5/5. Pulses equal bilaterally 2+. Neurological: A&O x 3. CN II-XII intact, There are no obvious motor or sensory deficits. Coordination appears grossly intact. Speech is normal. Skin: Skin is warm and dry and no rashes or lesions are noted. Psychiatric: Cooperative, appropriate mood & affect, normal judgment. Limitations: no limitations Course Vital Signs 05/27/18 05/27/18 05/27/18 16:23 16:41 16:59 Temperature 98.7 F 100 F H Pulse Rate 120 H Respiratory 18 Rate Blood Pressure 122/84 121/98 O2 Sat by Pulse 97 96 Oximetry 05/27/18 05/27/18 05/27/18 17:00 18:00 18:32 Temperature 99.4 F Pulse Rate 130 H 122 H Respiratory 22 18 Rate Blood Pressure 121/98 119/75 132/85 O2 Sat by Pulse 96 97 98 Oximetry - Reevaluation(s) Reevaluation #1: 05/27/18 16:50: Was discussed with patient about doing IV checking labs. Patient does admit that she is a difficult IV start and has declined. She states that she would like to start chest x-ray she feels that this is just an upper respiratory infection. She is tachycardic at triage. Has a history of tachycardia takes metoprolol which he has not been able to take due to some nausea and vomiting. She does have nausea medication at the pharmacy but has not been able to get up. Patient does have low-grade fever of 100F patient was given Tylenol for fever given Zofran ODT will have chest x-ray performed. EKG Findings - EKG Comments: EKG Findings:: EKG performed at 1654: Shows sinus tachycardia 144 bpm. FL interval 132. QRS 76. QT/QTC 320/459. EKG compared to previous EKG on 2013 and shows no acute changes. Medical Decision Making - Medical Decision Making Patient reexamined at this time shows no signs of distress. Patient's resting comfortably. Patient did have low-grade fever at presentation. Patient was given Tylenol. She was able tolerate by mouth liquids urine emergency room. Patient is a difficult IV access. She's needed multiple attempts in the past and would like to avoid today. It was discussed about doing IV with fluids and checking further labs she has declined. Chest x-ray is unremarkable showing no acute abdomen. She has a time tenderness over the sinuses. She has increased drainage. She states that she feels that she has declined time breathing when she is laying down. As she is sitting up she is clear. Her lung sounds are clear. She does admit to increased rhinorrhea. She states she is able to cough some of this mucus up she does feel much better. Patient had chronic urinary tract infections in the past and was worried about possible beginnings of UTIs she's had some difficulty with nausea over the last few days. Her urinalysis does show UTI. Patient will be started on antibiotics will be started on Augmentin to cover both for sinus infection along with UTI at this time his cultures pending. His EKG shows sinus tachycardia. Patient has a history of tachycardia takes metoprolol and has not been able to take this the last 2 days due to her nausea vomiting. Patient also had fever. Case discussed in detail with attending physician Dr. Bhatia. Patient is advised that she should follow-up the family doctor in the next 2 days. She is advised that she should return here to emergency room if any symptoms increase worsen. - Lab Data Lab Results 05/27/18 05/27/18 Range/Units 18:30 18:30 Urine Color Yellow Urine Appearance Cloudy H (Clear) Urine pH 6.0 (5.0-8.0) Ur Specific [place] 1.013 (1.001-1.035) Urine Protein Trace H (Negative) Urine Glucose (UA) Negative (Negative) Urine Ketones Negative (Negative) Urine Blood Negative (Negative) Urine Nitrite Negative (Negative) Urine Bilirubin Negative (Negative) Urine Urobilinogen <2.0 (<2.0) mg/dL Ur Leukocyte Esterase Negative (Negative) Urine RBC 7 H (0-5) /hpf Urine WBC 63 H (0-5) /hpf Ur Squamous Epith Cells 2 (0-4) /hpf Urine Bacteria Rare H (None) /hpf Urine Mucus Occasional H (None) /hpf Urine HCG, Qual Not Detected (Not Detectd) Disposition Clinical Impression: UTI (urinary tract infection), Acute sinusitis Disposition: HOME SELF-CARE Condition: Good Instructions: Sinusitis (ED) Additional Instructions: Please use medication as discussed. Please follow-up with family doctor in the next 2 days. Please return to emergency room if the symptoms increase or worsen or for any other concerns. Is patient prescribed a controlled substance at d/c from ED?: No Referrals: Erasmo Edward DO [Primary Care Provider] - 1-2 days Time of Disposition: 19:23
--- NOTE | 2018-05-27 17:58 | XR ---
EXAMINATION TYPE: XR chest 2V DATE OF EXAM: 05/27/2018 COMPARISON: 05/01/2018 HISTORY: Cough short of breath TECHNIQUE: Frontal and lateral views of the chest are obtained. FINDINGS: There is no heart failure nor confluent pneumonic infiltrate. There is ventricular periton eal shunt catheter noted. There is no pleural effusion. Heart size is normal. IMPRESSION: No active cardiopulmonary disease. Normal heart. No change.
[2018-05-27 18:33] VITALS: TEMP 99.4
[2018-05-27 18:59] LABS: Appearance,Urine Cloudy (Clear); Bacteria,Urine Rare /hpf; Bilirubin,Urine Negative (Negative); Blood,Urine Negative (Negative); Color,Urine Yellow; Glucose,Urine (UA) Negative (Negative); Ketones,Urine Negative (Negative); Leukocyte Esterase,Urine Negative (Negative); Mucus,Urine Occasional /hpf; Nitrite,Urine Negative (Negative); Protein,Urine Trace (Negative); RBC,Urine 7 /hpf (0-5); Specific Gravity,Urine 1.013 (1.001-1.035); Squamous Epithelial Cell,Urine 2 /hpf (0-4); Urobilinogen,Urine <2.0 mg/dL (<2.0)
[2018-05-27] MEDS ORDERED: ONDANSETRON 4 MG ODT STARTER PACK 2 TAB BTL PO STA (19:11)
[2018-05-27] MEDS ORDERED: AMOXIC-POT CLAV 875MG STARTER 2 EACH TABLET PO STA (19:12)
[2018-05-27] MEDS ORDERED: FLUTICASONE 50MCG/SPRAY NASAL 16GM EA NOSTRIL STA (19:22)
[2018-05-27 19:41] VITALS: BP 119/88; PULSE 111; RESP 16
== END 2018-05-27 19:34 | disposition home or self-care (01) ==
LOC: EC 16:22
DX: J01.90 Acute sinusitis, unspecified (principal); N39.0 Urinary tract infection, site not specified; Z79.899 Other long term (current) drug therapy; Z91.040 Latex allergy status; Z98.2 Presence of cerebrospinal fluid drainage device
CPT/HCPCS: 93005; 81001; 81025; 87086; 71046; 99284; S0119

== ENCOUNTER 2018-06-26 23:45 | Emergency (ER) | payer MEDICARE, OTHER ==
[2018-06-26 23:57] VITALS: BP 135/77; PULSE 122; RESP 20; TEMP 98.3
[2018-06-27 00:37] LABS: Appearance,Urine Turbid (Clear); Bacteria,Urine Occasional /hpf; Bilirubin,Urine Negative (Negative); Blood,Urine Small (Negative); Color,Urine Yellow; Glucose,Urine (UA) Negative (Negative); Ketones,Urine Negative (Negative); Leukocyte Esterase,Urine Large (Negative); Mucus,Urine Rare /hpf; Nitrite,Urine Positive (Negative); PH, Urine 5.5 (5.0-8.0); Protein,Urine 2+ (Negative); RBC,Urine 26 /hpf (0-5); Specific Gravity,Urine 1.016 (1.001-1.035); Urobilinogen,Urine <2.0 mg/dL (<2.0); WBC,Urine >182 /hpf (0-5)
[2018-06-27] MEDS ORDERED: LEVOFLOXACIN 500 MG TAB PO STA (02:07)
--- NOTE | 2018-06-27 02:10 | ED ---
General Adult HPI - General Chief complaint: Extremity Injury, Lower Stated complaint: Hip Pain/Urine Check Time Seen by Provider: 06/27/18 00:29 Source: patient, family Mode of arrival: ambulatory Limitations: no limitations - History of Present Illness Initial comments: This patient is a 27-year-old woman who presents to have evaluation because she believes she is having urinary tract infection. She states she has history of recurring urinary tract infections. She began noting that her urine was swelling different and was darker within the past day. The patient also has some hip pain that she states is sometimes associated with urinary tract infection. She is tolerating oral intake. No fever or chills. -: hour(s) - Related Data Home Medications Medication Instructions Recorded Confirmed Metoprolol Tartrate [Lopressor] 12.5 mg PO BID 07/09/17 06/26/18 Multivitamins, Thera [Multivitamin 1 tab PO DAILY 09/12/17 06/26/18 (formulary)] Acetaminophen Tab [Tylenol] 1,000 mg PO Q6HR 05/27/18 06/26/18 Previous Rx's Medication Instructions Recorded Sennosides-Docusate Sodium 1 tab PO DAILY #30 tablet 03/21/18 [Senokot-S] Amoxicillin/Potassium Clav 1 each PO Q12HR #20 tab 05/27/18 [Augmentin 875-125 Tablet] Fluticasone Propionate [Flonase 1 - 2 spray EA NOSTRIL DAILY 5 05/27/18 Allergy Relief] Days ml Ondansetron Odt [Zofran ODT] 4 mg PO Q8HR PRN #20 tab 05/27/18 Ciprofloxacin HCl [Cipro] 500 mg PO BID 3 Days #6 tab 06/27/18 Allergies Allergy/AdvReac Type Severity Reaction Status Date / Time latex Allergy Fever from Verified 06/26/18 23:57 cath Review of Systems ROS Statement: Those systems with pertinent positive or pertinent negative responses have been documented in the HPI. ROS Other: All systems not noted in ROS Statement are negative. Constitutional: Denies: fever, chills, weakness Respiratory: Denies: cough, dyspnea Cardiovascular: Denies: chest pain, palpitations Gastrointestinal: Denies: abdominal pain, nausea, vomiting, diarrhea, constipation Genitourinary: Denies: dysuria, hematuria Musculoskeletal: Reports: as per HPI, arthralgia. 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 [employer] shunt. Past Anesthesia/Blood Transfusion Reactions: No Reported Reaction Past Psychological History: No Psychological Hx Reported Smoking Status: Never smoker Past Alcohol Use History: None Reported Past Drug Use History: None Reported - Past Family History Mother Family Medical History: Cancer Additional Family Medical History / Comment(s): grandparents - lung Father History Unknown: Yes General Exam Limitations: no limitations General appearance: alert, in no apparent distress Head exam: Present: atraumatic, normocephalic Eye exam: Present: normal appearance. Absent: scleral icterus, conjunctival injection ENT exam: Present: normal oropharynx Respiratory exam: Present: normal lung sounds bilaterally. Absent: respiratory distress, wheezes, rales, rhonchi, stridor Cardiovascular Exam: Present: normal rhythm, tachycardia, normal heart sounds. Absent: systolic murmur, diastolic murmur, rubs, gallop GI/Abdominal exam: Present: soft. Absent: distended, tenderness, guarding, rebound, rigid Extremities exam: Present: normal capillary refill. Absent: calf tenderness Back exam: Present: normal inspection. Absent: CVA tenderness (R), CVA tenderness (L) Skin exam: Present: warm, dry, intact, normal color. Absent: rash Course Vital Signs 06/26/18 23:53 Temperature 98.3 F Pulse Rate 122 H Respiratory 20 Rate Blood Pressure 135/77 O2 Sat by Pulse 100 Oximetry Medical Decision Making - Medical Decision Making Patient is 27-year-old woman with history of recurring urinary tract infections. She is found to have another UTI. Discussed with the patient admission for further antibiotic treatment but she states she would like to attempt a course of outpatient medication area she realizes she is at risk for worsening and she will definitely return if she is not having prompt improvement or if there is any worsening in anyway. - Lab Data Lab Results 06/27/18 06/27/18 Range/Units 00:06 00:06 Urine Color Yellow Urine Appearance Turbid H (Clear) Urine pH 5.5 (5.0-8.0) Ur Specific [place] 1.016 (1.001-1.035) Urine Protein 2+ H (Negative) Urine Glucose (UA) Negative (Negative) Urine Ketones Negative (Negative) Urine Blood Small H (Negative) Urine Nitrite Positive H (Negative) Urine Bilirubin Negative (Negative) Urine Urobilinogen <2.0 (<2.0) mg/dL Ur Leukocyte Esterase Large H (Negative) Urine RBC 26 H (0-5) /hpf Urine WBC >182 H (0-5) /hpf Urine WBC Clumps Many H (None) /hpf Urine Bacteria Occasional H (None) /hpf Urine Mucus Rare H (None) /hpf Urine HCG, Qual Not Detected (Not Detectd) Disposition Clinical Impression: UTI (urinary tract infection) Disposition: HOME SELF-CARE Condition: Good Instructions: Urinary Tract Infection in Women (ED) Prescriptions: Ciprofloxacin HCl [Cipro] 500 mg PO BID 3 Days #6 tab Is patient prescribed a controlled substance at d/c from ED?: No Referrals: Erasmo Edward DO [Primary Care Provider] - 1-2 days
--- NOTE | 2018-06-29 04:50 | CDI ---
Documentation Clarification OP Dear Dr. Zaid Yoder Please do addendum to ED report for missing HPI and Physical examination. Thank you, Juan M Qureshi Financial Service Rep If you have any questions, please contact [employer] at [phone] [facility], [place]
== END 2018-06-27 02:24 | disposition home or self-care (01) ==
LOC: EC 23:45
DX: N39.0 Urinary tract infection, site not specified (principal); M25.552 Pain in left hip; Q65.02 Congenital dislocation of left hip, unilateral; Z98.2 Presence of cerebrospinal fluid drainage device; Z79.899 Other long term (current) drug therapy; Z91.040 Latex allergy status
CPT/HCPCS: 81001; 81025; 87077; 87086; 87186; 99283

== ENCOUNTER → 2018-07-16 | Outpatient (CLI) | payer MEDICARE, OTHER ==
--- NOTE | 2018-07-17 02:47 | MR ---
EXAMINATION TYPE: MR hip LT wo con DATE OF EXAM: 07/16/2018 COMPARISON: HISTORY: Standard multiplanar, multisequence MRI departmental protocol Multiplanar, multisequence images of the left hip were acquired. FINDINGS: There is flattening of the left femoral head with deformity consistent with old hip dysplas ia. There is slight deformity of the acetabulum. I see no acute fracture nor dislocation. There is no evidence of avascular necrosis. There is no evidence of any significant hip joint effusion. There is a large fluid collection in the pelvis. There is no evidence of a soft tissue mass. 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 No fracture seen. No evidence of a vascular necrosis. Large amount of fluid in the pelvis is also present on the old CT scan of 6.
== END ==
LOC: RADMRIMAIN 16:36
PROVIDERS: ATTEND Family Medicine
DX: M21.952 Unspecified acquired deformity of left thigh (principal)

== ENCOUNTER 2018-10-30 01:01 | Emergency (ER) | payer MEDICARE, OTHER ==
[2018-10-30 01:24] VITALS: RESP 18
[2018-10-30] MEDS ORDERED: ONDANSETRON 4 MG/2 ML VIAL IVP STA (02:13)
[2018-10-30] MEDS ORDERED: SODIUM CHLORIDE 0.9% 1,000 ML IV STA (02:13)
[2018-10-30 02:53] LABS: Basophils % (A) 0 %; Eosinophils # (A) 0.2 k/uL (0-0.7); Eosinophils % (A) 1 %; HCT 40.8 % (34.0-46.0); HGB 13.1 gm/dL (11.4-16.0); Lymphocytes % (A) 6 %; MCH 27.1 pg (25.0-35.0); MCHC 32.1 g/dL (31.0-37.0); MCV 84.4 fL (80.0-100.0); Mean Platelet Volume 6.2; Monocytes # (A) 0.5 k/uL (0-1.0); Monocytes % (A) 3 %; Neutrophils # (A) 14.6 k/uL (1.3-7.7); Neutrophils % (A) 90 %; Platelet Count 372 k/uL (150-450); RBC 4.84 m/uL (3.80-5.40); RDW 14.9 % (11.5-15.5); WBC 16.3 k/uL (3.8-10.6)
[2018-10-30 02:59] LABS: Appearance,Urine Cloudy (Clear); Bacteria,Urine Occasional /hpf; Bilirubin,Urine Negative (Negative); Blood,Urine Negative (Negative); Color,Urine Yellow; Glucose,Urine (UA) Negative (Negative); Ketones,Urine Negative (Negative); Leukocyte Esterase,Urine Large (Negative); Mucus,Urine Moderate /hpf; Nitrite,Urine Negative (Negative); Protein,Urine 1+ (Negative); RBC,Urine 13 /hpf (0-5); Specific Gravity,Urine 1.017 (1.001-1.035); Squamous Epithelial Cell,Urine 1 /hpf (0-4); Urobilinogen,Urine <2.0 mg/dL (<2.0); WBC,Urine >182 /hpf (0-5)
[2018-10-30 03:01] LABS: ALT 28 U/L (9-52); AST 21 U/L (14-36); Albumin 4.6 g/dL (3.5-5.0); Alkaline Phosphatase 78 U/L (38-126); Amylase 66 U/L (30-110); Anion Gap 12 mmol/L; Blood Urea Nitrogen 18 mg/dL (7-17); Calcium 9.8 mg/dL (8.4-10.2); Carbon Dioxide 22 mmol/L (22-30); Chloride 105 mmol/L (98-107); Glucose 118 mg/dL (74-99); Lipase 108 U/L (23-300); Potassium 3.7 mmol/L (3.5-5.1); Sodium 139 mmol/L (137-145); Total Bilirubin 0.5 mg/dL (0.2-1.3); Total Protein 7.9 g/dL (6.3-8.2)
[2018-10-30] MEDS ORDERED: cefTRIAXone IN SWFI 1,000 MG/10 ML SYRINGE IVP STA (03:02)
--- NOTE | 2018-10-30 03:23 | XR ---
EXAM: XR Abdomen, 1 View CLINICAL HISTORY: ITS.REASON XR Reason: pain TECHNIQUE: Frontal supine view of the abdomen/pelvis. COMPARISON: Abdominal radiographs on 11/10/2017 FINDINGS: Hardware: Stable catheter projected over the right upper quadrant. Abdomen: Nonobstructive bowel gas pattern. No free air. Moderate stool in the left colon. Surgical clips again noted projected over the left iliac bone. Postsurgical changes near the left in the region. Bones: Severe left convex scoliosis of the thoracolumbar spine. Fusion changes at T11-12. 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 Soft tissues: Normal. Lower chest: Normal. IMPRESSION: Nonobstructive bowel gas pattern.
[2018-10-30] MEDS ORDERED: diphenhydrAMINE 50 MG/ML 1 ML VIAL IVP STA (04:03)
[2018-10-30] MEDS ORDERED: FAMOTIDINE 20 MG/2 ML VIAL IV STA (04:04)
--- NOTE | 2018-10-30 05:02 | ED ---
Nausea/Vomiting/Diarrhea HPI - General Source: patient Mode of arrival: wheelchair Limitations: no limitations <Radha Hughes - Last Filed: 10/30/18 12:30> <Daniella Harrison - Last Filed: 10/30/18 22:00> - General Chief complaint: Nausea/Vomiting/Diarrhea Stated complaint: Nausea Recent Dx Bladder Infection Time Seen by Provider: 10/30/18 02:02 - History of Present Illness Initial comments: 28-year-old female patient with past medical history significant for spina bifida, scoliosis, and neurogenic bladder presents to the emergency department today for evaluation of vomiting. Patient states she was recent diagnosed with urinary tract infection. States she did take 1 dose of Bactrim this morning and has been nauseated throughout the day. Patient states that she did start vomiting this evening. States she has vomited twice since symptom onset. Denies any diarrhea. States she is having lower abdominal burning and discomfort. Patient does self cath. She denies any fever or chills. Denies an y back or kidney pain. Patient denies any recent rash, shortness breath, chest pain, diarrhea, constipation, numbness, tingling, dizziness, weakness, headache, visual changes, or any other complaints. (Radha Hughes) - Related Data Home Medications Medication Instructions Recorded Confirmed Metoprolol Tartrate [Lopressor] 12.5 mg PO BID 07/09/17 06/26/18 Multivitamins, Thera [Multivitamin 1 tab PO DAILY 09/12/17 06/26/18 (formulary)] Acetaminophen Tab [Tylenol] 1,000 mg PO Q6HR 05/27/18 06/26/18 Previous Rx's Medication Instructions Recorded Sennosides-Docusate Sodium 1 tab PO DAILY #30 tablet 03/21/18 [Senokot-S] Amoxicillin/Potassium Clav 1 each PO Q12HR #20 tab 05/27/18 [Augmentin 875-125 Tablet] Fluticasone Propionate [Flonase 1 - 2 spray EA NOSTRIL DAILY 5 05/27/18 Allergy Relief] Days ml Ondansetron Odt [Zofran ODT] 4 mg PO Q8HR PRN #20 tab 05/27/18 Ciprofloxacin HCl [Cipro] 500 mg PO BID 3 Days #6 tab 12/08/18 Allergies Allergy/AdvReac Type Severity Reaction Status Date / Time latex Allergy Fever from Verified 10/30/18 01:24 cath Review of Systems ROS Other: All systems not noted in ROS Statement are negative. <Radha Hughes - Last Filed: 10/30/18 12:30> ROS Other: All systems not noted in ROS Statement are negative. <HunterDaniella P - Last Filed: 10/30/18 22:00> ROS Statement: Those systems with pertinent positive or pertinent negative responses have been documented in the HPI. 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 Past Anesthesia/Blood Transfusion Reactions: No Reported Reaction Past Psychological History: No Psychological Hx Reported Smoking Status: Never smoker Past Alcohol Use History: None Reported Past Drug Use History: None Reported - Past Family History Mother Family Medical History: Cancer Additional Family Medical History / Comment(s): grandparents - lung Father History Unknown: Yes <Radha Hughes - Last Filed: 10/30/18 12:30> General Exam Limitations: no limitations General appearance: alert, in no apparent distress, other (This is a well- developed, well-nourished adult female patient in no acute distress. Vital signs upon presentation are temperature 98.6F, pulse 120, respirations 18, blood pressure 117/79, pulse ox 100% on room air.) Eye exam: Present: normal appearance, PERRL, EOMI. Absent: scleral icterus, conjunctival injection, periorbital swelling ENT exam: Present: normal exam, normal oropharynx, mucous membranes moist Respiratory exam: Present: normal lung sounds bilaterally. Absent: respiratory distress, wheezes, rales, rhonchi, stridor Cardiovascular Exam: Present: regular rate, normal rhythm, normal heart sounds. Absent: systolic murmur, diastolic murmur, rubs, gallop, clicks GI/Abdominal exam: Present: soft, tenderness (Suprapubic tenderness), normal bow el sounds. Absent: distended, guarding, rebound, rigid Neurological exam: Present: alert, oriented X3, CN II-XII intact Psychiatric exam: Present: normal affect, normal mood Skin exam: Present: warm, dry, intact, normal color. Absent: rash <Radha Hughes - Last Filed: 10/30/18 12:30> Course Vital Signs 10/30/18 10/30/18 01:22 06:39 Temperature 98.6 F 98.8 F Pulse Rate 120 H 102 H Respiratory 18 18 Rate Blood Pressure 117/79 112/70 O2 Sat by Pulse 100 98 Oximetry Medical Decision Making - Lab Data Result diagrams: 10/30/18 02:45 10/30/18 02:45 - Radiology Data Radiology results: report reviewed, image reviewed <Radha Hughes - Last Filed: 10/30/18 12:30> - Lab Data Result diagrams: 10/30/18 02:45 10/30/18 02:45 <Daniella Harrison - Last Filed: 10/30/18 22:00> - Medical Decision Making 28 year-old female patient presents to emergency department today for evaluation of nausea and vomiting with lower abdominal pain. Physical examination did reveal suprapubic abdominal tenderness. Labs reviewed and did reveal elevated white blood cell count at 16,000. His urine was positive for urinary tract infection, this is not sent for culture. Patient did take one dose of Bactrim. She'll be given an IV dose of Rocephin here in the emergency department. Patient was also found to be retaining urine with a level of 800 mL via bladder scan. We did insert Liu catheter. Patient also had a short episode where she became tingly, felt her skin was hot and flushed, and felt very tired. There was some concern for ALLERGIC reaction so we did administer Benadryl and Pepcid. Patient did have complete resolution of symptoms. Patient was instructed to continue taking Bactrim. She is instructed to follow up with her primary care physician for further evaluation of urinary retention after Liu catheter removal. Return parameters were discussed in detail. Dr. Harrison my attending managed patient after 05 and did plan discharge. (Radha Hughes) Patient was reevaluated after Liu catheter was placed she reported significant improvement in discomfort she remained hemodynamically stable. I suspect that the urinary retention is secondary to the severe urinary tract infection. Patient did receive Rocephin in the emergency department and was prescribed oral antibiotics earlier in the day which she hasn't yet begun. I advised her to continue her Bactrim. All questions pertaining care were answered return parameters were discussed patient was discharged home in stable condition. (Daniella Harrison) - Lab Data Lab Results 10/30/18 10/30/18 10/30/18 Range/Units 02:45 02:45 02:45 WBC 16.3 H (3.8-10.6) k/uL RBC 4.84 (3.80-5.40) m/uL Hgb 13.1 (11.4-16.0) gm/dL Hct 40.8 (34.0-46.0) % MCV 84.4 (80.0-100.0) fL MCH 27.1 (25.0-35.0) pg MCHC 32.1 (31.0-37.0) g/dL RDW 14.9 (11.5-15.5) % Plt Count 372 (150-450) k/uL Neutrophils % 90 % Lymphocytes % 6 % Monocytes % 3 % Eosinophils % 1 % Basophils % 0 % Neutrophils # 14.6 H (1.3-7.7) k/uL Lymphocytes # 1.0 (1.0-4.8) k/uL Monocytes # 0.5 (0-1.0) k/uL Eosinophils # 0.2 (0-0.7) k/uL Basophils # 0.0 (0-0.2) k/uL Sodium 139 (137-145) mmol/L Potassium 3.7 (3.5-5.1) mmol/L Chloride 105 (98-107) mmol/L Carbon Dioxide 22 (22-30) mmol/L Anion Gap 12 mmol/L BUN 18 H (7-17) mg/dL Creatinine 0.68 (0.52-1.04) mg/dL Est GFR (CKD-EPI)AfAm >90 (>60 ml/min/1.73 sqM) Est GFR (CKD-EPI)NonAf >90 (>60 ml/min/1.73 sqM) Glucose 118 H (74-99) mg/dL Calcium 9.8 (8.4-10.2) mg/dL Total Bilirubin 0.5 (0.2-1.3) mg/dL AST 21 (14-36) U/L ALT 28 (9-52) U/L Alkaline Phosphatase 78 (38-126) U/L Total Protein 7.9 (6.3-8.2) g/dL Albumin 4.6 (3.5-5.0) g/dL Amylase 66 (30-110) U/L Lipase 108 (23-300) U/L Urine Color Urine Appearance (Clear) Urine pH (5.0-8.0) Ur Specific [place] (1.001-1.035) Urine Protein (Negative) Urine Glucose (UA) (Negative) Urine Ketones (Negative) Urine Blood (Negative) Urine Nitrite (Negative) Urine Bilirubin (Negative) Urine Urobilinogen (<2.0) mg/dL Ur Leukocyte Esterase (Negative) Urine RBC (0-5) /hpf Urine WBC (0-5) /hpf Ur Squamous Epith Cells (0-4) /hpf Urine Bacteria (None) /hpf Urine Mucus (None) /hpf Urine HCG, Qual Not Detected (Not Detectd) 10/30/18 Range/Units 02:45 WBC (3.8-10.6) k/uL RBC (3.80-5.40) m/uL Hgb (11.4-16.0) gm/dL Hct (34.0-46.0) % MCV (80.0-100.0) fL MCH (25.0-35.0) pg MCHC (31.0-37.0) g/dL RDW (11.5-15.5) % Plt Count (150-450) k/uL Neutrophils % % Lymphocytes % % Monocytes % % Eosinophils % % Basophils % % Neutrophils # (1.3-7.7) k/uL Lymphocytes # (1.0-4.8) k/uL Monocytes # (0-1.0) k/uL Eosinophils # (0-0.7) k/uL Basophils # (0-0.2) k/uL Sodium (137-145) mmol/L Potassium (3.5-5.1) mmol/L Chloride (98-107) mmol/L Carbon Dioxide (22-30) mmol/L Anion Gap mmol/L BUN (7-17) mg/dL Creatinine (0.52-1.04) mg/dL Est GFR (CKD-EPI)AfAm (>60 ml/min/1.73 sqM) Est GFR (CKD-EPI)NonAf (>60 ml/min/1.73 sqM) Glucose (74-99) mg/dL Calcium (8.4-10.2) mg/dL Total Bilirubin (0.2-1.3) mg/dL AST (14-36) U/L ALT (9-52) U/L Alkaline Phosphatase (38-126) U/L Total Protein (6.3-8.2) g/dL Albumin (3.5-5.0) g/dL Amylase (30-110) U/L Lipase (23-300) U/L Urine Color Yellow Urine Appearance Cloudy H (Clear) Urine pH 6.0 (5.0-8.0) Ur Specific [place] 1.017 (1.001-1.035) Urine Protein 1+ H (Negative) Urine Glucose (UA) Negative (Negative) Urine Ketones Negative (Negative) Urine Blood Negative (Negative) Urine Nitrite Negative (Negative) Urine Bilirubin Negative (Negative) Urine Urobilinogen <2.0 (<2.0) mg/dL Ur Leukocyte Esterase Large H (Negative) Urine RBC 13 H (0-5) /hpf Urine WBC >182 H (0-5) /hpf Ur Squamous Epith Cells 1 (0-4) /hpf Urine Bacteria Occasional H (None) /hpf Urine Mucus Moderate H (None) /hpf Urine HCG, Qual (Not Detectd) - Radiology Data KUB x-ray of the abdomen was obtained. Report was reviewed in its entirety. Impression by Dr. Salamanca shows nonobstructive bowel gas pattern. (Radha Hughes) Disposition <Radha Hughes - Last Filed: 10/30/18 12:30> Is patient prescribed a controlled substance at d/c from ED?: No <Daniella Harrison - Last Filed: 10/30/18 22:00> Clinical Impression: UTI (urinary tract infection), Urinary retention Disposition: HOME SELF-CARE Instructions (If sedation given, give patient instructions): Liu Catheter Placement and Care (ED), Chronic Urinary Retention in Women (ED) Additional Instructions: Any new taking the Bactrim for urinary tract infection. Follow-up with her primary care provider for reevaluation and removal of the Liu catheter. Return to the ER for any acute worsening of your condition. Referrals: Erasmo Edward DO [Primary Care Provider] - 1-2 days
[2018-10-30 06:41] VITALS: BP 112/70; PULSE 102; TEMP 98.8
== END 2018-10-30 06:41 | disposition home or self-care (01) ==
LOC: EC 01:01
DX: N39.0 Urinary tract infection, site not specified (principal); R33.9 Retention of urine, unspecified; R11.2 Nausea with vomiting, unspecified; R19.8 Other specified symptoms and signs involving the digestive system and abdomen; Q05.9 Spina bifida, unspecified; Z98.2 Presence of cerebrospinal fluid drainage device; Z79.899 Other long term (current) drug therapy; Z91.040 Latex allergy status
CPT/HCPCS: 36415; 80053; 82150; 83690; 85025; 81001; 81025; 87086; 74018; 99284; 51702; 96374; 96375 ×3; 96361; J1200; J2405; J0696

== ENCOUNTER → 2018-11-10 | Outpatient (CLI) | payer MEDICARE, OTHER ==
--- NOTE | 2018-11-11 07:20 | US ---
EXAMINATION TYPE: US kidneys/renal and bladder DATE OF EXAM: 11/10/2018 COMPARISON: CT dated 01/02/2017 CLINICAL HISTORY: R93.4 Abnormal findings. History of hydronephrosis EXAM MEASUREMENTS: Right Kidney: 9.6 x 6.0 x 5.0 cm Left Kidney: 7.9 x 3.5 x 3.9 cm Right Kidney: limited visualization due to overlying bowel gas Left Kidney: measures small in size, moderate hydronephrosis, cortical renal thinning and diminished cortical medullary differentiation. Bladder: wnl Bilateral Jets seen: no Large cystic appearing lesion seen in lower abdomen/pelvis measuring at least 17.6 x 9.2 x 8.3cm, u nable to determine origin. No nephrolithiasis is seen. No renal masses are identified. The urinary bladder is anechoic. IMPRESSION: 1. Sequela of chronic left hydronephrosis with diminished cortical medullary differentiation and vonnie ical renal thinning. Moderate hydronephrosis remains. 2. Large left hemipelvic cystic lesion measuring at least 17.6 cm (although not able to be entirely i ncluded in the [id number]) that on the prior CT of 01/02/2018 is closely associated with the left u reter and could be the source of the chronic hydronephrosis from extrinsic compression (left adnexal mass). CT urogram could further delineate the relationship of the left ureter with this mass and bett er assess measurements for stability. Other considerations are for a large mesenteric cyst or pelvic inclusion cyst.
== END | disposition home or self-care (01) ==
LOC: RADUSWWP 15:50
PROVIDERS: ATTEND Urology
DX: N13.30 Unspecified hydronephrosis (principal); N94.89 Other specified conditions associated with female genital organs and menstrual cycle
CPT/HCPCS: 76770

== ENCOUNTER 2018-12-05 20:24 | Emergency (ER) | payer MEDICARE, OTHER ==
[2018-12-05 20:29] VITALS: RESP 18
--- NOTE | 2018-12-05 21:25 | ED ---
Skin/Abscess/FB HPI - General Chief complaint: Skin/Abscess/Foreign Body Stated complaint: Leg wound Time Seen by Provider: 12/05/18 20:35 Source: patient Mode of arrival: wheelchair Limitations: physical limitation - History of Present Illness Initial comments: 28-year-old female patient presented to the emergency department today for evaluation of wound to the left ankle. Patient has spina bifida and does not feel her lower extremities. States she has a chronic wound to the left medial ankle. States that over the last few hours the area has become more red and swollen. She feels like it needs to be drained. Patient does not feel any pain to the area due to being insensate. She denies any fever or chills. Denies any nausea or vomiting. States otherwise she feels well. Patient denies any recent rash, shortness breath, chest pain, abdominal pain, diarrhea, constipation, back pain, numbness, tingling, dizziness, weakness, hematuria, dysuria, urinary urgency, urinary frequency, headache, visual changes, or any other complaints. - Related Data Home Medications Medication Instructions Recorded Confirmed Metoprolol Tartrate [Lopressor] 12.5 mg PO BID 07/09/17 06/26/18 Multivitamins, Thera [Multivitamin 1 tab PO DAILY 09/12/17 06/26/18 (formulary)] Acetaminophen Tab [Tylenol] 1,000 mg PO Q6HR 05/27/18 06/26/18 Previous Rx's Medication Instructions Recorded Sennosides-Docusate Sodium 1 tab PO DAILY #30 tablet 03/21/18 [Senokot-S] Amoxicillin/Potassium Clav 1 each PO Q12HR #20 tab 05/27/18 [Augmentin 875-125 Tablet] Fluticasone Propionate [Flonase 1 - 2 spray EA NOSTRIL DAILY 5 05/27/18 Allergy Relief] Days ml Ondansetron Odt [Zofran ODT] 4 mg PO Q8HR PRN #20 tab 05/27/18 Ciprofloxacin HCl [Cipro] 500 mg PO BID 3 Days #6 tab 06/27/18 Cephalexin [Keflex] 500 mg PO Q6HR #40 cap 12/05/18 Allergies Allergy/AdvReac Type Severity Reaction Status Date / Time latex Allergy Fever from Verified 12/05/18 20:29 cath Review of Systems ROS Statement: Those systems with pertinent positive or pertinent negative responses have been documented in the HPI. ROS Other: All systems not noted in ROS Statement are negative. 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 DIVISION CHAIR shunt. Past Anesthesia/Blood Transfusion Reactions: No Reported Reaction Past Psychological History: No Psychological Hx Reported Smoking Status: Never smoker Past Alcohol Use History: None Reported Past Drug Use History: None Reported - Past Family History Mother Family Medical History: Cancer Additional Family Medical History / Comment(s): grandparents - lung Father History Unknown: Yes General Exam Limitations: physical limitation General appearance: alert, in no apparent distress, other (Physical well- nourished adult female patient in no acute distress. Vital signs upon presentation are temperature 98.6F, pulse 111, respirations 18, blood pressure 134/74, pulse ox 100% on room air per) Eye exam: Present: normal appearance, PERRL, EOMI. Absent: scleral icterus, conjunctival injection, periorbital swelling ENT exam: Present: normal exam, normal oropharynx, mucous membranes moist Respiratory exam: Present: normal lung sounds bilaterally. Absent: respiratory distress, wheezes, rales, rhonchi, stridor Cardiovascular Exam: Present: regular rate, normal rhythm, normal heart sounds. Absent: systolic murmur, diastolic murmur, rubs, gallop, clicks Extremities exam: Present: full ROM, normal capillary refill, other (Abscess noted to the left medial ankle, mild surrounding erythema, area is fluctuant. Skin is otherwise pink, warm, and dry. Cap refills less than 3 seconds. Pedal pulses 2+ and equal bilaterally). Absent: normal inspection, tenderness, pedal edema, joint swelling, calf tenderness Neurological exam: Present: alert, oriented X3, CN II-XII intact Psychiatric exam: Present: normal affect, normal mood Skin exam: Present: warm, dry, intact, normal color. Absent: rash Course Vital Signs 05/18/19 05/18/19 20:26 21:57 Temperature 98.6 F 99.8 F H Pulse Rate 111 H 89 Respiratory 18 18 Rate Blood Pressure 134/74 120/83 O2 Sat by Pulse 100 98 Oximetry Procedures - Incision & Drainage Consent Obtained: verbal consent Indication: Abscess Site: lower extremity (Left medial ankle) Size (cm): 3 I&D Cleaning Method: Chloroprep Scalpel Used: #11 I&D Drainage Obtained: Blood Culture Obtained?: Yes Patient Tolerated Procedure: well, no complications Medical Decision Making - Medical Decision Making 28-year-old female patient has a chronic wound to the left medial ankle presented today for increased swelling and redness to the area. Physical examination reveals 3 cm abscess noted to the left ankle. Did obtain an x-ray which showed no evidence for subcutaneous air or osteomyelitis. Did perform incision and drainage, had only bloody drainage from the area this was cultured. She was started on Keflex for increased redness. She is instructed to follow- up with her physician Dr. Wiggins who usually manages thsi wound for her. Return parameters were discussed in detail. She verbalizes understanding and agrees with this plan. - Radiology Data Radiology results: report reviewed, image reviewed Left ankle x-rays are obtained. Report was reviewed in its entirety. Impression by Dr. Gar shows large tibiotalar joint effusion, soft tissue deformity and swelling overlying the medial malleolus without any radiographic sequela of osteomyelitis. Disposition Clinical Impression: Abscess of left leg Disposition: HOME SELF-CARE Condition: Good Instructions (If sedation given, give patient instructions): Abscess Incision and Drainage (ED) Additional Instructions: Keep dressing in place, change twice daily unless saturated. Complete antibiotic prescription in full. Follow up with Dr. Wiggins Friday if possible. Return to the emergency department immediately for any new, worsening or concerning symptoms. Prescriptions: Cephalexin [Keflex] 500 mg PO Q6HR #40 cap Is patient prescribed a controlled substance at d/c from ED?: No Referrals: Erasmo Edward DO [Primary Care Provider] - 1-2 days Time of Disposition: 22:22
--- NOTE | 2018-12-05 21:26 | XR ---
EXAMINATION TYPE: XR ankle complete LT DATE OF EXAM: 12/05/2018 CLINICAL HISTORY: Left ankle wound, concern for osteomyelitis TECHNIQUE: Frontal, lateral and oblique images of the left ankle are obtained. COMPARISON: 12/04/2014 FINDINGS: There is no acute fracture/dislocation evident in the left ankle. There is a tibiotalar jani int effusion with buckling of the joint capsule on the lateral view and fat stranding in the anterior tibiotalar recess and posterior tibiotalar recess. Probable calcaneal bone island is noted. Possible old fracture of the calcaneus is seen with abnormal contour of the posterior calcaneus. Marked overl leticia soft tissue swelling and soft tissue bulbous deformity is seen of the medial malleolus correspon ding to the patient's known visual abnormality. No osseous erosions or periosteal reaction are seen. Findings are similar to exam of 2014. IMPRESSION: Large tibiotalar joint effusion, soft tissue deformity and swelling overlying the medial malleolus without radiographic sequela of osteomyelitis.
[2018-12-05] MEDS ORDERED: CEPHALEXIN 500MG STARTER PACK 4 CAP BTL PO STA (21:47)
[2018-12-05] MEDS ORDERED: LIDOCAINE 1% INJ 10MG/ML (20 ML MDV) SQ ONE (21:47)
[2018-12-05 21:58] VITALS: BP 120/83; PULSE 89; TEMP 99.8
== END 2018-12-05 22:33 | disposition home or self-care (01) ==
LOC: EC 20:24
DX: L02.416 Cutaneous abscess of left lower limb (principal); Q05.9 Spina bifida, unspecified; Z79.899 Other long term (current) drug therapy; Z91.040 Latex allergy status; Z98.2 Presence of cerebrospinal fluid drainage device
CPT/HCPCS: 87070; 87205; 73610; 99284; 10060; J2001

== ENCOUNTER 2019-08-18 18:43 | Emergency (ER) | payer MEDICARE, OTHER ==
[2019-08-18 19:33] VITALS: TEMP 98.3
[2019-08-18] MEDS ORDERED: SODIUM CHLORIDE 0.9% 1,000 ML IV STA (20:58)
[2019-08-18 21:09] LABS: Basophils # (A) 0.1 k/uL (0-0.2); Basophils % (A) 1 %; Eosinophils # (A) 0.1 k/uL (0-0.7); Eosinophils % (A) 1 %; HGB 14.5 gm/dL (11.4-16.0); Lymphocytes # (A) 2.1 k/uL (1.0-4.8); Lymphocytes % (A) 11 %; MCH 29.1 pg (25.0-35.0); MCHC 32.9 g/dL (31.0-37.0); MCV 88.7 fL (80.0-100.0); Monocytes # (A) 0.5 k/uL (0-1.0); Monocytes % (A) 3 %; Neutrophils # (A) 16.7 k/uL (1.3-7.7); Neutrophils % (A) 85 %; Platelet Count 512 k/uL (150-450); RBC 4.97 m/uL (3.80-5.40); RDW 12.3 % (11.5-15.5); WBC 19.6 k/uL (3.8-10.6)
[2019-08-18 21:18] LABS: Appearance,Urine Cloudy (Clear); Bilirubin,Urine Negative (Negative); Blood,Urine Moderate (Negative); Color,Urine Yellow; Glucose,Urine (UA) Negative (Negative); Ketones,Urine Negative (Negative); Leukocyte Esterase,Urine Large (Negative); Mucus,Urine Rare /hpf; Nitrite,Urine Positive (Negative); PH, Urine 5.5 (5.0-8.0); Protein,Urine 2+ (Negative); RBC,Urine 25 /hpf (0-5); Specific Gravity,Urine 1.015 (1.001-1.035); Squamous Epithelial Cell,Urine 2 /hpf (0-4); Urobilinogen,Urine <2.0 mg/dL (<2.0); WBC,Urine >182 /hpf (0-5)
[2019-08-18 21:19] LABS: ALT 20 U/L (4-34); AST 28 U/L (14-36); African American GFR (CKD) >90 (>60 ml/min/1.73 sqM); Albumin 4.6 g/dL (3.5-5.0); Alkaline Phosphatase 83 U/L (38-126); Anion Gap 14 mmol/L; Blood Urea Nitrogen 24 mg/dL (7-17); Calcium 10.3 mg/dL (8.4-10.2); Carbon Dioxide 23 mmol/L (22-30); Chloride 102 mmol/L (98-107); Glucose 119 mg/dL (74-99); Non-African American GFR(CKD) >90 (>60 ml/min/1.73 sqM); Potassium 4.1 mmol/L (3.5-5.1); Sodium 139 mmol/L (137-145); Total Bilirubin 0.6 mg/dL (0.2-1.3); Total Protein 8.2 g/dL (6.3-8.2)
[2019-08-18] MEDS ORDERED: GENTAMICIN 320 MG in SODIUM CHLORIDE 0.9% 100 ML IVPB ONE (22:30)
[2019-08-18] MEDS ORDERED: SULFAMETH-TMP DS STARTER PACK 2 TAB BTL PO STA (23:20)
--- NOTE | 2019-08-18 23:21 | ED ---
General Adult HPI - General Chief complaint: Recheck/Abnormal Lab/Rx Stated complaint: UTI Time Seen by Provider: 08/18/19 19:34 Source: patient, RN notes reviewed, old records reviewed Mode of arrival: wheelchair Limitations: physical limitation - History of Present Illness Initial comments: 28-year-old female patient past history of spina bifida, self catheterizes presents to ED for chief complaint of 2 days of dysuria, patient reports she has had some nausea without emesis. Reports some lower back pain. Denies any document any fevers at home. Does report some subjective fevers and chills. Denies any other complaints. Patient was seen in urgent care earlier today where she was diagnosed urinary tract infection initiated on a Rocephin shot and had an box called in which she has not noted they are. Patient presents to emergency department because she was feeling warm at home. Denies any other complaints at this time. Systemic: Pt denies fatigue, fever/chills, rash. Pt denies weakness, night sweats, weight loss. Neuro: Pt denies headache, visual disturbances, syncope or pre-syncope. HEENT: Pt denies ocular discharge or irritation, otalgia, rhinorrhea, pharyngitis or notable lymphadenopathy. Cardiopulmonary: Pt denies chest pain, SOB, heart palpitations, dyspnea on exertion. Abdominal/GI: Pt denies abdominal pain, n/v/d. : Pt denies Denies new onset urinary or bowel incontinence. MSK: Pt denies myalgia, loss of strength or function in extremities. Neuro: Pt denies new onset weakness, paresthesias. - Related Data Home Medications Medication Instructions Recorded Confirmed Metoprolol Tartrate [Lopressor] 12.5 mg PO BID 07/09/17 06/26/18 Multivitamins, Thera [Multivitamin 1 tab PO DAILY 09/12/17 06/26/18 (formulary)] Acetaminophen Tab [Tylenol] 1,000 mg PO Q6HR 05/27/18 06/26/18 Previous Rx's Medication Instructions Recorded Sennosides-Docusate Sodium 1 tab PO DAILY #30 tablet 03/21/18 [Senokot-S] Amoxicillin/Potassium Clav 1 each PO Q12HR #20 tab 05/27/18 [Augmentin 875-125 Tablet] Fluticasone Propionate [Flonase 1 - 2 spray EA NOSTRIL DAILY 5 05/27/18 Allergy Relief] Days ml Ondansetron Odt [Zofran ODT] 4 mg PO Q8HR PRN #20 tab 05/27/18 Ciprofloxacin HCl [Cipro] 500 mg PO BID 3 Days #6 tab 06/27/18 Cephalexin [Keflex] 500 mg PO Q6HR #40 cap 12/05/18 Sulfamethox-Tmp 800-160Mg [Bactrim 1 tab PO Q12HR #20 tab 08/18/19 DS 800-160 mg] Allergies Allergy/AdvReac Type Severity Reaction Status Date / Time latex Allergy Fever from Verified 08/18/19 19:33 cath Review of Systems ROS Statement: Those systems with pertinent positive or pertinent negative responses have been documented in the HPI. ROS Other: All systems not noted in ROS Statement are negative. 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 CONTINUITY COORDINATOR shunt. Past Anesthesia/Blood Transfusion Reactions: No Reported Reaction Past Psychological History: No Psychological Hx Reported Smoking Status: Never smoker Past Alcohol Use History: None Reported Past Drug Use History: None Reported - Past Family History Mother Family Medical History: Cancer Additional Family Medical History / Comment(s): grandparents - lung Father History Unknown: Yes General Exam - General Exam Comments Initial Comments: Constitutional: NAD, AOX3, Pt has pleasant affect. HEENT: NC/AT, trachea midline, neck supple, no lymphadenopathy. Posterior pharynx non erythematous, without exudates. External ears appear normal, without discharge. Mucous membranes moist. Eyes PERRLA, EOM intact. There is no scleral icterus. No pallor noted. Cardiopulmonary: RRR, no murmurs, rubs or gallops, no JVD noted. Lungs CTAB in anterior and posterior roman. No peripheral edema. Abdominal exam: Abdomen soft and non-distended. Abdomen non-tender to palpation in all 4 quadrants. Bowel sounds active in LLQ. No hepatosplenomegaly. No ecch ymosis. CVA tenderness is negative. Neuro: CN II-XII grossly intact. No nuchal rigidity. No raccon eyes, no thrasher sign, no hemotympanum. No cervical spinal tenderness. MSK: No posterior calf tenderness bilaterally, homans sign negative bilaterally. Posterior tibialis and radial pulse +2 bilaterally. Sensation intact in upper and lower extremities. Full active ROM in upper and lower extremities, 5/5 stregnth. Limitations: physical limitation Course Vital Signs 08/18/19 08/18/19 19:30 21:49 Temperature 98.3 F Pulse Rate 130 H 105 H Respiratory 22 19 Rate Blood Pressure 110/76 109/72 O2 Sat by Pulse 98 98 Oximetry Medical Decision Making - Medical Decision Making 28-year-old female patient presented emergency department for 2 days of dysuria, urinary tract infection. Patient vital signs the displayed an initial tachycardia, afebrile. Patient is or fluid bolus. Patient appears initiated and Rocephin emergency department. Laboratory investigations were obtained, leukocytosis of 19.6. CMP noncompressive. UA displayed nitrate positive urinary tract infection. Physical exam did not display acute pathology. Most recent urine culture did grow MRSA which was sensitive to gentamicin and Bactri m. Patient was offered admission to hospital, patient declined rather attempt outpatient antibiotics. Patient discharged one dose of gentamicin in ED discharged with Bactrim. Discharged with strict precautions and follow-up with primary care provider tomorrow. Case discussed with Dr. Harrison. - Lab Data Result diagrams: 08/18/19 20:49 08/18/19 20:49 Lab Results 08/18/19 08/18/19 08/18/19 Range/Units 20:49 20:49 20:49 WBC 19.6 H (3.8-10.6) k/uL RBC 4.97 (3.80-5.40) m/uL Hgb 14.5 (11.4-16.0) gm/dL Hct 44.0 (34.0-46.0) % MCV 88.7 (80.0-100.0) fL MCH 29.1 (25.0-35.0) pg MCHC 32.9 (31.0-37.0) g/dL RDW 12.3 (11.5-15.5) % Plt Count 512 H (150-450) k/uL Neutrophils % 85 % Lymphocytes % 11 % Monocytes % 3 % Eosinophils % 1 % Basophils % 1 % Neutrophils # 16.7 H (1.3-7.7) k/uL Lymphocytes # 2.1 (1.0-4.8) k/uL Monocytes # 0.5 (0-1.0) k/uL Eosinophils # 0.1 (0-0.7) k/uL Basophils # 0.1 (0-0.2) k/uL Sodium 139 (137-145) mmol/L Potassium 4.1 (3.5-5.1) mmol/L Chloride 102 (98-107) mmol/L Carbon Dioxide 23 (22-30) mmol/L Anion Gap 14 mmol/L BUN 24 H (7-17) mg/dL Creatinine 0.71 (0.52-1.04) mg/dL Est GFR (CKD-EPI)AfAm >90 (>60 ml/min/1.73 sqM) Est GFR (CKD-EPI)NonAf >90 (>60 ml/min/1.73 sqM) Glucose 119 H (74-99) mg/dL Plasma Lactic Acid Mauro (0.7-2.0) mmol/L Calcium 10.3 H (8.4-10.2) mg/dL Total Bilirubin 0.6 (0.2-1.3) mg/dL AST 28 (14-36) U/L ALT 20 (4-34) U/L Alkaline Phosphatase 83 (38-126) U/L Total Protein 8.2 (6.3-8.2) g/dL Albumin 4.6 (3.5-5.0) g/dL Lipase 118 (23-300) U/L Urine Color Urine Appearance (Clear) Urine pH (5.0-8.0) Ur Specific [place] (1.001-1.035) Urine Protein (Negative) Urine Glucose (UA) (Negative) Urine Ketones (Negative) Urine Blood (Negative) Urine Nitrite (Negative) Urine Bilirubin (Negative) Urine Urobilinogen (<2.0) mg/dL Ur Leukocyte Esterase (Negative) Urine RBC (0-5) /hpf Urine WBC (0-5) /hpf Urine WBC Clumps (None) /hpf Ur Squamous Epith Cells (0-4) /hpf Urine Mucus (None) /hpf Urine HCG, Qual Not Detected (Not Detectd) 08/18/19 08/18/19 Range/Units 20:49 20:49 WBC (3.8-10.6) k/uL RBC (3.80-5.40) m/uL Hgb (11.4-16.0) gm/dL Hct (34.0-46.0) % MCV (80.0-100.0) fL MCH (25.0-35.0) pg MCHC (31.0-37.0) g/dL RDW (11.5-15.5) % Plt Count (150-450) k/uL Neutrophils % % Lymphocytes % % Monocytes % % Eosinophils % % Basophils % % Neutrophils # (1.3-7.7) k/uL Lymphocytes # (1.0-4.8) k/uL Monocytes # (0-1.0) k/uL Eosinophils # (0-0.7) k/uL Basophils # (0-0.2) k/uL Sodium (137-145) mmol/L Potassium (3.5-5.1) mmol/L Chloride (98-107) mmol/L Carbon Dioxide (22-30) mmol/L Anion Gap mmol/L BUN (7-17) mg/dL Creatinine (0.52-1.04) mg/dL Est GFR (CKD-EPI)AfAm (>60 ml/min/1.73 sqM) Est GFR (CKD-EPI)NonAf (>60 ml/min/1.73 sqM) Glucose (74-99) mg/dL Plasma Lactic Acid Mauro 1.5 (0.7-2.0) mmol/L Calcium (8.4-10.2) mg/dL Total Bilirubin (0.2-1.3) mg/dL AST (14-36) U/L ALT (4-34) U/L Alkaline Phosphatase (38-126) U/L Total Protein (6.3-8.2) g/dL Albumin (3.5-5.0) g/dL Lipase (23-300) U/L Urine Color Yellow Urine Appearance Cloudy H (Clear) Urine pH 5.5 (5.0-8.0) Ur Specific [place] 1.015 (1.001-1.035) Urine Protein 2+ H (Negative) Urine Glucose (UA) Negative (Negative) Urine Ketones Negative (Negative) Urine Blood Moderate H (Negative) Urine Nitrite Positive H (Negative) Urine Bilirubin Negative (Negative) Urine Urobilinogen <2.0 (<2.0) mg/dL Ur Leukocyte Esterase Large H (Negative) Urine RBC 25 H (0-5) /hpf Urine WBC >182 H (0-5) /hpf Urine WBC Clumps Many H (None) /hpf Ur Squamous Epith Cells 2 (0-4) /hpf Urine Mucus Rare H (None) /hpf Urine HCG, Qual (Not Detectd) Disposition Clinical Impression: UTI (urinary tract infection) Disposition: HOME SELF-CARE Condition: Stable Instructions (If sedation given, give patient instructions): Urinary Tract Infection in Women (ED) Additional Instructions: Take antibiotics as directed, follow up with PCP tomorrow. Return to ER if condition worsens. Prescriptions: Sulfamethox-Tmp 800-160Mg [Bactrim DS 800-160 mg] 1 tab PO Q12HR #20 tab Is patient prescribed a controlled substance at d/c from ED?: No Referrals: Erasmo Edward DO [Primary Care Provider] - 1-2 days
[2019-08-18 23:53] VITALS: BP 100/70; PULSE 98; RESP 18
== END 2019-08-18 23:53 | disposition home or self-care (01) ==
LOC: EC 18:43
DX: N39.0 Urinary tract infection, site not specified (principal); Q05.9 Spina bifida, unspecified; Z79.899 Other long term (current) drug therapy; Z91.040 Latex allergy status; Z98.2 Presence of cerebrospinal fluid drainage device
CPT/HCPCS: 36415; 80053; 83605; 83690; 85025; 81001; 81025; 87086; 99284; 96365; 96361; J1580

== ENCOUNTER → 2020-01-12 | Outpatient (CLI) | payer MEDICARE, OTHER ==
--- NOTE | 2020-01-12 15:58 | US ---
EXAMINATION TYPE: US kidneys/renal and bladder DATE OF EXAM: 01/12/2020 COMPARISON: US 11/10/2018, CT 01/02/2017 CLINICAL HISTORY: N13.30 HYDRONEPHROSIS. Difficult and limited exam due to overlying bowel gas and pa tient body habitus EXAM MEASUREMENTS: Right Kidney: 8.8 x 5.4 x 5.3 cm Left Kidney: 7.3 x 4.1 x 4.0 cm Right Kidney: Hydronephrosis visualized. No masses visualized Left Kidney: Hydronephrosis visualized. Lobular contour. Measuring small Bladder: wnl as visualized Large left sided pelvic mass again noted, unable to image in entirety. IMPRESSION: 1 bilateral hydronephrosis of uncertain etiology considered severe on the left and moderate on the ri ght.
== END | disposition home or self-care (01) ==
LOC: RADUSWWP 14:45
PROVIDERS: ATTEND Urology
DX: N13.30 Unspecified hydronephrosis (principal)
CPT/HCPCS: 76770

== ENCOUNTER 2020-01-17 16:17 | Inpatient (IN) | payer MEDICARE, OTHER ==
[2020-01-17] MEDS ORDERED: cefTRIAXone IN SWFI 1,000 MG/10 ML SYRINGE IVP STA (16:29)
[2020-01-17] MEDS ORDERED: SODIUM CHLORIDE 0.9% 1,000 ML IV STA (16:29)
[2020-01-17] MEDS ORDERED: KETOROLAC 30 MG/ML 1 ML VIAL IVP STA (16:30)
[2020-01-17 16:38] LABS: Basophils % (A) 0 %; Eosinophils # (A) 0.2 k/uL (0-0.7); Eosinophils % (A) 1 %; HCT 37.8 % (34.0-46.0); HGB 12.6 gm/dL (11.4-16.0); Lymphocytes # (A) 1.3 k/uL (1.0-4.8); Lymphocytes % (A) 12 %; MCHC 33.2 g/dL (31.0-37.0); MCV 87.3 fL (80.0-100.0); Mean Platelet Volume 6.8; Monocytes # (A) 0.4 k/uL (0-1.0); Monocytes % (A) 4 %; Neutrophils # (A) 8.9 k/uL (1.3-7.7); Neutrophils % (A) 82 %; Platelet Count 314 k/uL (150-450); RBC 4.33 m/uL (3.80-5.40); RDW 13.1 % (11.5-15.5); WBC 10.9 k/uL (3.8-10.6)
[2020-01-17 16:58] LABS: ALT 15 U/L (4-34); AST 28 U/L (14-36); African American GFR (CKD) >90 (>60 ml/min/1.73 sqM); Albumin 4.2 g/dL (3.5-5.0); Alkaline Phosphatase 65 U/L (38-126); Anion Gap 10 mmol/L; Blood Urea Nitrogen 12 mg/dL (7-17); Calcium 9.2 mg/dL (8.4-10.2); Carbon Dioxide 21 mmol/L (22-30); Chloride 102 mmol/L (98-107); Creatine Kinase 71 U/L (30-135); Glucose 109 mg/dL (74-99); Non-African American GFR(CKD) >90 (>60 ml/min/1.73 sqM); Sodium 133 mmol/L (137-145); Total Bilirubin 0.6 mg/dL (0.2-1.3); Total Protein 7.5 g/dL (6.3-8.2)
--- NOTE | 2020-01-17 17:01 | ED ---
General Adult HPI - General Chief complaint: Recheck/Abnormal Lab/Rx Stated complaint: Fever Time Seen by Provider: 01/17/20 16:17 Source: patient, EMS, RN notes reviewed Mode of arrival: EMS Limitations: no limitations - History of Present Illness Initial comments: This is a 29-year-old female who was diagnosed with a UTI today she started having dysuria also had a fever who took one dose around antibiotics today but she continued to feel badly. Elevate temperature elevated heart rate she does have a history of tachycardia. He does take metoprolol for this. She did take her medication this morning. She was brought in by EMS temperature 103.1. She did take Tylenol at about 2:30 this afternoon. No chest pain no nausea vomiting no chills or sweats she did have dysuria. No other complaints or modifying factors - Related Data Home Medications Medication Instructions Recorded Confirmed Metoprolol Tartrate [Lopressor] 25 mg PO BID 07/09/17 01/17/20 Multivitamins, Thera [Multivitamin 1 tab PO DAILY@1800 09/12/17 01/17/20 (formulary)] Ibuprofen [Motrin Ib] 600 mg PO Q8H PRN 01/17/20 01/17/20 Sennosides-Docusate Sodium 1 tab PO SUWE 01/17/20 01/17/20 [Senokot-S] Sulfamethox-Tmp 800-160Mg [Bactrim 1 tab PO Q12HR 01/17/20 01/17/20 DS 800-160 mg] Allergies Allergy/AdvReac Type Severity Reaction Status Date / Time latex Allergy Fever from Verified 01/17/20 17:53 cath Review of Systems ROS Statement: Those systems with pertinent positive or pertinent negative responses have been documented in the HPI. ROS Other: All systems not noted in ROS Statement are negative. 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 Past Anesthesia/Blood Transfusion Reactions: No Reported Reaction Past Psychological History: No Psychological Hx Reported Smoking Status: Never smoker Past Alcohol Use History: None Reported Past Drug Use History: None Reported - Past Family History Mother Family Medical History: Cancer Additional Family Medical History / Comment(s): grandparents - lung Father History Unknown: Yes General Exam - General Exam Comments Initial Comments: This is a well-developed female with exception of atrophy to the lower extremities which is chronic was awake alert oriented 3 Limitations: no limitations General appearance: alert, lethargic Head exam: Present: atraumatic, normocephalic, normal inspection Eye exam: Present: normal appearance, PERRL, EOMI. Absent: scleral icterus, conjunctival injection, periorbital swelling ENT exam: Present: normal exam, mucous membranes moist Neck exam: Present: normal inspection. Absent: tenderness, meningismus, lymphadenopathy Respiratory exam: Present: normal lung sounds bilaterally. Absent: respiratory distress, wheezes, rales, rhonchi, stridor Cardiovascular Exam: Present: normal rhythm, tachycardia, normal heart sounds. Absent: systolic murmur, diastolic murmur, rubs, gallop, clicks GI/Abdominal exam: Present: soft, tenderness (Mild suprapubic discomfort palpation), normal bowel sounds. Absent: distended, guarding, rebound, rigid Extremities exam: Present: normal capillary refill, other (Atrophy is noted). Absent: tenderness, pedal edema, joint swelling, calf tenderness Back exam: Present: normal inspection Neurological exam: Present: alert, oriented X3, CN II-XII intact Psychiatric exam: Present: normal affect, normal mood Skin exam: Present: warm, dry, intact, normal color. Absent: rash Course Vital Signs 01/17/20 01/17/20 16:18 17:13 Temperature 103.1 F H Pulse Rate 156 H 156 H Respiratory 18 22 Rate Blood Pressure 129/84 120/84 O2 Sat by Pulse 95 99 Oximetry - Reevaluation(s) Reevaluation #1: 01/17/20 18:11 Reevaluation patient finds her heart rate has dropped down into the 130s she is responding to fluids she is feeling somewhat better. EKG Findings - EKG Results: EKG: interpreted by MARTY, sinus rhythm (Sinus tachycardia rate of 153 SC int erval 1:30 QRS duration 74 QT since QTC to 46/392 right word axis rule out anterior infarct age indeterminate) Medical Decision Making - Medical Decision Making I did discuss findings with patient family or present as well as with Dr. Ames patient will be admitted to be continue with IV fluids and IV antibiotics. - Lab Data Result diagrams: 01/17/20 16:29 01/17/20 16:29 Lab Results 01/17/20 01/17/20 01/17/20 Range/Units 16:29 16: 17:10 WBC 10.9 H (3.8-10.6) k/uL RBC 4.33 (3.80-5.40) m/uL Hgb 12.6 (11.4-16.0) gm/dL Hct 37.8 (34.0-46.0) % MCV 87.3 (80.0-100.0) fL MCH 29.0 (25.0-35.0) pg MCHC 33.2 (31.0-37.0) g/dL RDW 13.1 (11.5-15.5) % Plt Count 314 (150-450) k/uL Neutrophils % 82 % Lymphocytes % 12 % Monocytes % 4 % Eosinophils % 1 % Basophils % 0 % Neutrophils # 8.9 H (1.3-7.7) k/uL Lymphocytes # 1.3 (1.0-4.8) k/uL Monocytes # 0.4 (0-1.0) k/uL Eosinophils # 0.2 (0-0.7) k/uL Basophils # 0.0 (0-0.2) k/uL Sodium 133 L (137-145) mmol/L Potassium 3.6 (3.5-5.1) mmol/L Chloride 102 (98-107) mmol/L Carbon Dioxide 21 L (22-30) mmol/L Anion Gap 10 mmol/L BUN 12 (7-17) mg/dL Creatinine 0.58 (0.52-1.04) mg/dL Est GFR (CKD-EPI)AfAm >90 (>60 ml/min/1.73 sqM) Est GFR (CKD-EPI)NonAf >90 (>60 ml/min/1.73 sqM) Glucose 109 H (74-99) mg/dL Calcium 9.2 (8.4-10.2) mg/dL Magnesium 1.8 (1.6-2.3) mg/dL Total Bilirubin 0.6 (0.2-1.3) mg/dL AST 28 (14-36) U/L ALT 15 (4-34) U/L Alkaline Phosphatase 65 (38-126) U/L Creatine Kinase 71 (30-135) U/L Total Protein 7.5 (6.3-8.2) g/dL Albumin 4.2 (3.5-5.0) g/dL Urine Color Yellow Urine Appearance Clear (Clear) Urine pH 6.5 (5.0-8.0) Ur Specific [place] 1.013 (1.001-1.035) Urine Protein 1+ H (Negative) Urine Glucose (UA) Negative (Negative) Urine Ketones 2+ H (Negative) Urine Blood Trace H (Negative) Urine Nitrite Positive H (Negative) Urine Bilirubin Negative (Negative) Urine Urobilinogen <2.0 (<2.0) mg/dL Ur Leukocyte Esterase Large H (Negative) Urine RBC 8 H (0-5) /hpf Urine WBC 77 H (0-5) /hpf Amorphous Sediment Rare H (None) /hpf Urine Bacteria Rare H (None) /hpf Urine Mucus Rare H (None) /hpf - Radiology Data Radiology results: report reviewed (I did review the imaging and report no acute findings.), image reviewed Disposition Clinical Impression: Urinary tract infection, Febrile illness, Dehydration, Failure of outpatient treatment Disposition: ADMITTED IP TO THIS [facility] Condition: Fair Referrals: Erasmo Edward DO [Primary Care Provider] - 1-2 days
[2020-01-17 17:10] LABS: Magnesium 1.8 mg/dL (1.6-2.3); Potassium 3.6 mmol/L (3.5-5.1)
[2020-01-17 17:21] LABS: Amorphous Sediment,Urine Rare /hpf; Appearance,Urine Clear (Clear); Bacteria,Urine Rare /hpf; Bilirubin,Urine Negative (Negative); Blood,Urine Trace (Negative); Color,Urine Yellow; Glucose,Urine (UA) Negative (Negative); Ketones,Urine 2+ (Negative); Leukocyte Esterase,Urine Large (Negative); Mucus,Urine Rare /hpf; Nitrite,Urine Positive (Negative); PH, Urine 6.5 (5.0-8.0); Protein,Urine 1+ (Negative); RBC,Urine 8 /hpf (0-5); Specific Gravity,Urine 1.013 (1.001-1.035); Urobilinogen,Urine <2.0 mg/dL (<2.0); WBC,Urine 77 /hpf (0-5)
--- NOTE | 2020-01-17 17:47 | XR ---
EXAMINATION TYPE: XR chest 2V DATE OF EXAM: 01/17/2020 COMPARISON: NONE HISTORY: 05/27/2018 TECHNIQUE: FINDINGS: There is poor inspiration. There is no heart failure. Lungs are clear of consolidation. The re are chest leads. There is mild thoracic dextroscoliosis. IMPRESSION: No active cardiopulmonary disease. No change.
[2020-01-17] MEDS ORDERED: ONDANSETRON 4 MG/2 ML VIAL IVP PRN (18:13)
[2020-01-17] MEDS ORDERED: NALOXONE 0.4 MG/ML 1 ML VIAL IV PRN (18:13)
[2020-01-17] MEDS ORDERED: IBUPROFEN 600 MG TAB PO PRN (18:15)
[2020-01-17] MEDS: SODIUM CHLORIDE 0.9% 1,000 ML IV SCH (18:33)
--- NOTE | 2020-01-17 21:52 | P.HPIM ---
History of Present Illness H&P Date: 01/17/20 Chief Complaint: Burning with urination History of present token: This is a pleasant [address] Edward. Chronic stable medical conditions include chronic spina bifida causing paraplegia, chronic neurogenic bladder causing recurrent frequent UTIs patient does self-catheterization, GERD, chronic left hydroureter and hydronephrosis. Patient gets about with a wheel chair. chronic paraplegia. Patient now presents with increasing dysuria. Had a fever of 103 in the ER.. Tachycardic. No nausea. Some decreased appetite. Tired rundown. Given IV ceftriaxone in the ER IV fluids and admitted for the same. 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 Does not smoke or drink alcohol. Family history: Grandparents had history of lung cancer VITAL SIGNS: 103.1, 150, 18, heart and 29/84, 95% on room air GENERAL: Average built, laying in bed, tired appearing. EYES: Pupils equal. Conjunctiva normal. HEENT: External appearance of nose and ears normal, oral cavity dry. NECK: JVD not raised; masses not palpable. HEART: First and second heart sounds are normal; no edema. LUNGS: Respiratory rate normal; clear to auscultation. ABDOMEN: Soft, mild mid abdomen tenderness, no guarding or rigidity, liver spleen not palpable, no masses palpable, Liu catheter in place. LYMPHATICS: No lymph nodes palpable in the axilla and neck. PSYCH: Alert and oriented x3; mood and affect normal. NEUROLOGICAL: Cranial nerves grossly intact; no facial asymmetry, power and sensation decreased in lower extremity. Investigations: Reviewed in context of the clinical picture and assessment and plan White count 10.9 hemoglobin 12.6 potassium 3.6 creatinine 0.58 UA positive for leukoesterase, WBC Assessment: -Acute complicated cystitis, secondary to self-catheterization, resulting in sepsis, POA -Chronic spina bifida causing chronic paraplegia -Chronic neurogenic bladder requiring self-catheterization -Chronic medical debility patient is wheelchair bound. Plan: Start an IV ceftriaxone, IV fluids. Home medications resumed. Culture was sent off. Lovenox for DVT prophylaxis. Care was discussed with the patient. Questions answered. 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 Past Anesthesia/Blood Transfusion Reactions: No Reported Reaction Past Psychological History: No Psychological Hx Reported Smoking Status: Never smoker Past Alcohol Use History: None Reported Past Drug Use History: None Reported - Past Family History Mother Family Medical History: Cancer Additional Family Medical History / Comment(s): grandparents - lung Father History Unknown: Yes Medications and Allergies Home Medications Medication Instructions Recorded Confirmed Type Metoprolol Tartrate [Lopressor] 25 mg PO BID 07/09/17 01/17/20 History Multivitamins, Thera [Multivitamin 1 tab PO DAILY@1800 09/12/17 01/17/20 History (formulary)] Ibuprofen [Motrin Ib] 600 mg PO Q8H PRN 01/17/20 01/17/20 History Sennosides-Docusate Sodium 1 tab PO SUWE 01/17/20 01/17/20 History [Senokot-S] Sulfamethox-Tmp 800-160Mg [Bactrim 1 tab PO Q12HR 01/17/20 01/17/20 History DS 800-160 mg] Allergies Allergy/AdvReac Type Severity Reaction Status Date / Time latex Allergy Fever from Verified 01/17/20 17:53 cath Physical Exam Vitals: Vital Signs Temp Pulse Resp BP Pulse Ox 01/17/20 21:34 102 H 16 102/70 99 01/17/20 19:47 98.8 F 120 H 18 102/68 99 01/17/20 18:34 122 H 18 100/74 98 01/17/20 17:13 156 H 22 120/84 99 01/17/20 16:18 103.1 F H 156 H 18 129/84 95 Intake and Output 01/17/20 01/17/20 01/17/20 06:59 14:59 22:59 Other: Weight 63.503 kg Results CBC & Chem 7: 01/17/20 16:29 01/17/20 16:29 Labs: Abnormal Lab Results - Last 24 Hours (Table) 01/17/20 01/17/20 01/17/20 Range/Units 16:29 16:29 17:10 WBC 10.9 H (3.8-10.6) k/uL Neutrophils # 8.9 H (1.3-7.7) k/uL Sodium 133 L (137-145) mmol/L Carbon Dioxide 21 L (22-30) mmol/L Glucose 109 H (74-99) mg/dL Urine Protein 1+ H (Negative) Urine Ketones 2+ H (Negative) Urine Blood Trace H (Negative) Urine Nitrite Positive H (Negative) Ur Leukocyte Esterase Large H (Negative) Urine RBC 8 H (0-5) /hpf Urine WBC 77 H (0-5) /hpf Amorphous Sediment Rare H (None) /hpf Urine Bacteria Rare H (None) /hpf Urine Mucus Rare H (None) /hpf
[2020-01-17] MEDS: METOPROLOL TARTRATE 25 MG TAB PO SCH (22:17)
[2020-01-17] MEDS: ENOXAPARIN 40 MG/0.4 ML SYRINGE SQ SCH (22:18)
[2020-01-18] MEDS: SODIUM CHLORIDE 0.9% 1,000 ML IV SCH ×3 (06:37→16:16)
[2020-01-18] MEDS: METOPROLOL TARTRATE 25 MG TAB PO SCH ×2 (09:12→20:46)
[2020-01-18] MEDS: ENOXAPARIN 40 MG/0.4 ML SYRINGE SQ SCH (09:12)
[2020-01-18 13:12] LABS: HCT 37.1 % (34.0-46.0); HGB 12.3 gm/dL (11.4-16.0); MCH 30.3 pg (25.0-35.0); MCHC 33.2 g/dL (31.0-37.0); MCV 91.3 fL (80.0-100.0); Platelet Count 274 k/uL (150-450); RBC 4.07 m/uL (3.80-5.40); RDW 13.3 % (11.5-15.5); WBC 10.2 k/uL (3.8-10.6)
[2020-01-18] MEDS: MULTIVITAMINS, THERA 1 EACH TAB PO SCH (16:15)
[2020-01-18] MEDS: ACETAMINOPHEN TAB 325 MG TAB PO PRN (16:15)
--- NOTE | 2020-01-18 19:31 | P.PN ---
Progress Note - Text Progress Note Date: 01/18/20 Chief Complaint: Burning with urination History of present token: This is a pleasant [address] Edward. Chronic stable medical conditions include chronic spina bifida causing paraplegia, chronic neurogenic bladder causing recurrent frequent UTIs patient does self-catheterization, GERD, chronic left hydroureter and hydronephrosis. Patient gets about with a wheelchair. chronic paraplegia. Patient now presents with increasing dysuria. Had a fever of 103 in the ER.. Tachycardic. No nausea. Some decreased appetite. Tired rundown. Given IV ceftriaxone in the ER IV fluids and admitted for the same. Admitted with-acute UTI with sepsis Today-laying in bed. Did tolerate some breakfast. Feels a bit better. Getting IV fluids and antibiotics. Late in the day started of with fever and chills. Review of systems: Was done for constitutional, cardiovascular, GI, pulmonary. relevant finding as above Active Medications Acetaminophen (Tylenol Tab) 650 mg PO Q6HR PRN PRN Reason: Mild Pain or Fever > 100.5 Last Admin: 01/18/20 16:15 Dose: 650 mg Documented by: Enoxaparin Sodium (Lovenox) 40 mg SQ DAILY [facility] Last Admin: 01/18/20 09:12 Dose: 40 mg Documented by: Sodium Chloride (Saline 0.9%) 1,000 mls @ 130 mls/hr IV .Q7H42M [facility] Last Admin: 01/18/20 16:16 Dose: 130 mls/hr Documented by: Ceftriaxone Sodium 1 gm/ (Sodium Chloride) 50 mls @ 100 mls/hr IVPB Q24HR [facility] Last Admin: 01/18/20 10:47 Dose: 100 mls/hr Documented by: Ibuprofen (Motrin) 600 mg PO Q8H PRN PRN Reason: Pain or Fever > 100.5 Last Admin: 01/18/20 16:15 Dose: 600 mg Documented by: Metoprolol Tartrate (Lopressor) 25 mg PO BID [facility] Last Admin: 01/18/20 09:12 Dose: 25 mg Documented by: Multivitamins (Theragran) 1 each PO DAILY@1800 [facility] Last Admin: 01/18/20 16:15 Dose: 1 each Documented by: Naloxone HCl (Narcan) 0.2 mg IV Q2M PRN PRN Reason: Opioid Reversal Ondansetron HCl (Zofran) 4 mg IVP Q8HR PRN PRN Reason: Nausea And Vomiting Senna/Docusate Sodium (Senokot-S) 1 each PO SUWE [facility] VITAL SIGNS: 103.4, 106, 16, 108/70, 96% room air GENERAL: Average built, laying in bed, awake EYES: Pupils equal. Conjunctiva normal. HEENT: External appearance of nose and ears normal, oral cavity dry. NECK: JVD not raised; masses not palpable. HEART: First and second heart sounds are normal; no edema. LUNGS: Respiratory rate normal; clear to auscultation. ABDOMEN: Soft, mild mid abdomen tenderness, no guarding or rigidity, liver spleen not palpable, no masses palpable, Liu catheter in place. PSYCH: Alert and oriented x3; mood and affect normal. NEUROLOGICAL: Cranial nerves grossly intact; no facial asymmetry, power and sensation decreased in lower extremity. Investigations: Reviewed in context of the clinical picture and assessment and plan White count 10.2 hemoglobin 12.3 Previous testing White count 10.9 hemoglobin 12.6 potassium 3.6 creatinine 0.58 UA positive for leukoesterase, WBC COVID-19 PCR-not detected Assessment: -Acute complicated cystitis, secondary to self-catheterization, resulting in sepsis, POA, slow to respond but still spiking fever -Chronic spina bifida causing chronic paraplegia -Chronic neurogenic bladder requiring self-catheterization -Chronic medical debility patient is wheelchair bound. Plan: Neuro patient is clinically feeling better later this afternoon patient started spiking fever again. We'll switch the antibiotic to cefepime. Urine cultures are pending. Discussed with the patient. Repeat labs in the morning.
[2020-01-18] MEDS: LACTATED RINGERS 1,000 ML IV SCH (20:46)
[2020-01-18] MEDS: CEFEPIME 1 GM in SODIUM CHLORIDE 0.9% 50 ML IVPB SCH (20:46)
[2020-01-19] MEDS: LACTATED RINGERS 1,000 ML IV SCH ×3 (03:30→20:07)
[2020-01-19 06:43] VITALS: RESP 16
[2020-01-19 06:57] LABS: HCT 34.5 % (34.0-46.0); HGB 11.5 gm/dL (11.4-16.0); MCH 30.2 pg (25.0-35.0); MCHC 33.3 g/dL (31.0-37.0); MCV 90.7 fL (80.0-100.0); Mean Platelet Volume 6.5; Platelet Count 253 k/uL (150-450); RDW 13.2 % (11.5-15.5); WBC 6.5 k/uL (3.8-10.6)
[2020-01-19 07:06] LABS: African American GFR (CKD) >90 (>60 ml/min/1.73 sqM); Anion Gap 3 mmol/L; Blood Urea Nitrogen 7 mg/dL (7-17); Calcium 7.9 mg/dL (8.4-10.2); Carbon Dioxide 23 mmol/L (22-30); Chloride 112 mmol/L (98-107); Glucose 88 mg/dL (74-99); Non-African American GFR(CKD) >90 (>60 ml/min/1.73 sqM); Potassium 3.8 mmol/L (3.5-5.1); Sodium 138 mmol/L (137-145)
[2020-01-19] MEDS: ENOXAPARIN 40 MG/0.4 ML SYRINGE SQ SCH (08:50)
[2020-01-19] MEDS: METOPROLOL TARTRATE 25 MG TAB PO SCH ×2 (08:50→20:06)
[2020-01-19] MEDS ORDERED: SENNOSIDES-DOCUSATE SODIUM 1 EACH TAB PO SCH (09:00)
[2020-01-19] MEDS: CEFEPIME 1 GM in SODIUM CHLORIDE 0.9% 50 ML IVPB SCH ×2 (09:49→20:06)
[2020-01-19] MEDS: MULTIVITAMINS, THERA 1 EACH TAB PO SCH (17:23)
[2020-01-19] MEDS: ACETAMINOPHEN TAB 325 MG TAB PO PRN (17:23)
--- NOTE | 2020-01-19 17:59 | P.PN ---
Progress Note - Text Progress Note Date: 01/19/20 Chief Complaint: Burning with urination History of present token: This is a pleasant [address] Edward. Chronic stable medical conditions include chronic spina bifida causing paraplegia, chronic neurogenic bladder causing recurrent frequent UTIs patient does self-catheterization, GERD, chronic left hydroureter and hydronephrosis. Patient gets about with a wheelchair. chronic paraplegia. Patient now presents with increasing dysuria. Had a fever of 103 in the ER.. Tachycardic. No nausea. Some decreased appetite. Tired rundown. Given IV ceftriaxone in the ER IV fluids and admitted for the same. Admitted with-acute UTI with sepsis. Initially started and IV ceftriaxone. Because of persistent fevers which toward IV cefepime. Given IV fluids. Today-patient's spiking fever yesterday. Antibiotics switched from ceftriaxone to cefepime. He was of come down today. Urine cultures are pending.. Did tolerate her diet. Review of systems: Was done for constitutional, cardiovascular, GI, pulmonary. relevant finding as above Active Medications Acetaminophen (Tylenol Tab) 650 mg PO Q6HR PRN PRN Reason: Mild Pain or Fever > 100.5 Last Admin: 01/19/20 17:23 Dose: 650 mg Documented by: Enoxaparin Sodium (Lovenox) 40 mg SQ DAILY [facility] Last Admin: 01/19/20 08:50 Dose: 40 mg Documented by: Lactated Ringer's (Lactated Ringers) 1,000 mls @ 125 mls/hr IV .Q8H [facility] Last Admin: 01/19/20 16:23 Dose: 125 mls/hr Documented by: Cefepime HCl 1 gm/ Sodium (Chloride) 50 mls @ 100 mls/hr IVPB Q12HR [facility] Last Admin: 01/19/20 09:49 Dose: 100 mls/hr Documented by: Ibuprofen (Motrin) 600 mg PO Q8H PRN PRN Reason: Pain or Fever > 100.5 Last Admin: 01/18/20 16:15 Dose: 600 mg Documented by: Metoprolol Tartrate (Lopressor) 25 mg PO BID [facility] Last Admin: 01/19/20 08:50 Dose: 25 mg Documented by: Multivitamins (Theragran) 1 each PO DAILY@1800 [facility] Last Admin: 01/19/20 17:23 Dose: 1 each Documented by: Naloxone HCl (Narcan) 0.2 mg IV Q2M PRN PRN Reason: Opioid Reversal Ondansetron HCl (Zofran) 4 mg IVP Q8HR PRN PRN Reason: Nausea And Vomiting Senna/Docusate Sodium (Senokot-S) 1 each PO SUWE [facility] Last Admin: 01/19/20 08:50 Dose: 1 each Documented by: VITAL SIGNS: Afebrile, 108, 16, 110/69, 96% room air GENERAL: Laying in bed, comfortable EYES: Pupils equal. Conjunctiva normal. HEENT: External appearance of nose and ears normal, oral cavity dry. NECK: JVD not raised; masses not palpable. HEART: First and second heart sounds are normal; no edema. LUNGS: Respiratory rate normal; clear to auscultation. ABDOMEN: Soft, mild mid abdomen tenderness, no guarding or rigidity, liver s pleen not palpable, no masses palpable, Liu catheter in place. PSYCH: Alert and oriented x3; mood and affect normal. NEUROLOGICAL: Cranial nerves grossly intact; no facial asymmetry, power and sensation decreased in lower extremity. Investigations: Reviewed in context of the clinical picture and assessment and plan White count 6.5 hemoglobin 11.5 potassium 3.8 crit 0.5 to Urine culture-E. coli Previous testing White count 10.9 hemoglobin 12.6 potassium 3.6 creatinine 0.58 UA positive for leukoesterase, WBC COVID-19 PCR-not detected Assessment: -Acute complicated cystitis, secondary to self-catheterization, resulting in sepsis, POA,-clinically improving. Cultures positive for E. coli -Chronic spina bifida causing chronic paraplegia -Chronic neurogenic bladder requiring self-catheterization -Chronic medical debility patient is wheelchair bound. Plan: -Patient is clinically doing much better. Discussed with the patient. Give another 24 hours of IV current antibiotics. Should be renewed to be discharged tomorrow. White count is also coming on.
[2020-01-20] MEDS: LACTATED RINGERS 1,000 ML IV SCH ×2 (00:48→08:41)
[2020-01-20 06:07] VITALS: BP 119/79; PULSE 93; TEMP 98.8
[2020-01-20] MEDS: ENOXAPARIN 40 MG/0.4 ML SYRINGE SQ SCH (08:41)
[2020-01-20] MEDS: METOPROLOL TARTRATE 25 MG TAB PO SCH (08:41)
[2020-01-20] MEDS: CEFEPIME 1 GM in SODIUM CHLORIDE 0.9% 50 ML IVPB SCH (10:15)
--- NOTE | 2020-01-20 22:59 | P.DS ---
Providers Date of admission: 01/17/20 18:13 Expected date of discharge: 01/20/20 Attending physician: Forrest Ames Primary care physician: Erasmo Edward [facility] Course: Chief Complaint: Burning with urination History of present token: This is a pleasant [address] Edward. Chronic stable medical conditions include chronic spina bifida causing paraplegia, chronic neurogenic bladder causing recurrent frequent UTIs patient does self-catheterization, GERD, chronic left hydroureter and hydronephrosis. Patient gets about with a wheelchair. chronic paraplegia. Patient now presents with increasing dysuria. Had a fever of 103 in the ER.. Tachycardic. No nausea. Some decreased appetite. Tired rundown. Given IV ceftriaxone in the ER IV fluids and admitted for the same. Admitted with-acute UTI with sepsis. Initially started and IV ceftriaxone. Because of persistent fevers which toward IV cefepime. Given IV fluids. Cultures came back positive for E. coli. Today-doing well. No fever. Tolerating a diet. No urinary symptoms. Discussed with the patient. Liu catheter be discontinued. VITAL SIGNS: 98.8, 93, 16, 119/79, 88% on room air GENERAL: Laying in bed, comfortable EYES: Pupils equal. Conjunctiva normal. HEENT: External appearance of nose and ears normal, oral cavity dry. NECK: JVD not raised; masses not palpable. HEART: First and second heart sounds are normal; no edema. LUNGS: Respiratory rate normal; clear to auscultation. ABDOMEN: Soft, mild mid abdomen tenderness, no guarding or rigidity, liver spleen not palpable, no masses palpable, Liu catheter in place. PSYCH: Alert and oriented x3; mood and affect normal. NEUROLOGICAL: Cranial nerves grossly intact; no facial asymmetry, power and sensation decreased in lower extremity. Investigations: Reviewed in context of the clinical picture and assessment and plan White count 6.5 hemoglobin 11.5 potassium 3.8 crit 0.5 to Urine culture-E. coli Previous testing White count 10.9 hemoglobin 12.6 potassium 3.6 creatinine 0.58 UA positive for leukoesterase, WBC COVID-19 PCR-not detected Assessment: -Acute complicated cystitis, secondary to self-catheterization, resulting in sepsis, POA, from E. coli -Chronic spina bifida causing chronic paraplegia -Chronic neurogenic bladder requiring self-catheterization -Chronic medical debility patient is wheelchair bound. Disposition: Home Patient Condition at Discharge: Stable Plan - Discharge Summary Discharge Rx Participant: No New Discharge Prescriptions: New Cephalexin [Keflex] 250 mg PO Q6HR #28 cap Continue Metoprolol Tartrate [Lopressor] 25 mg PO BID Multivitamins, Thera [Multivitamin (formulary)] 1 tab PO DAILY@1800 Sennosides-Docusate Sodium [Senokot-S] 1 tab PO SUWE Ibuprofen [Motrin Ib] 600 mg PO Q8H PRN PRN Reason: Pain Or Fever > 100.5 Discontinued Sulfamethox-Tmp 800-160Mg [Bactrim DS 800-160 mg] 1 tab PO Q12HR Discharge Medication List Metoprolol Tartrate [Lopressor] 25 mg PO BID 07/09/17 [History] Multivitamins, Thera [Multivitamin (formulary)] 1 tab PO DAILY@1800 09/12/17 [History] Ibuprofen [Motrin Ib] 600 mg PO Q8H PRN 01/17/20 [History] Sennosides-Docusate Sodium [Senokot-S] 1 tab PO SUWE 01/17/20 [History] Cephalexin [Keflex] 250 mg PO Q6HR #28 cap 01/20/20 [Rx] Follow up Appointment(s)/Referral(s): Erasmo Edward DO [Primary Care Provider] - 01/26/20 2:00 pm Patient Instructions/Handouts: Urinary Tract Infection in Women (DC) Discharge Disposition: HOME SELF-CARE
== END 2020-01-20 12:02 | disposition home or self-care (01) | DRG 698 ==
LOC: EC 16:17 → 3SCARD 18:13 → OBSVTOIN 18:13 → 3SCARD 01-18 01:22
PROVIDERS: ADMIT Hospitalist; ATTEND Hospitalist
DX: T83.518A Infection and inflammatory reaction due to other urinary catheter, initial encounter (principal); A41.51 Sepsis due to Escherichia coli [E. coli]; G82.20 Paraplegia, unspecified; N13.6 Pyonephrosis; Z11.59 Encounter for screening for other viral diseases; Q05.9 Spina bifida, unspecified; E86.0 Dehydration; N31.9 Neuromuscular dysfunction of bladder, unspecified; K21.9 Gastro-esophageal reflux disease without esophagitis; Z99.3 Dependence on wheelchair; Z79.899 Other long term (current) drug therapy; Z87.442 Personal history of urinary calculi; Z87.440 Personal history of urinary (tract) infections; Z86.14 Personal history of Methicillin resistant Staphylococcus aureus infection; Z98.2 Presence of cerebrospinal fluid drainage device; Z98.890 Other specified postprocedural states; Z91.040 Latex allergy status
CPT/HCPCS: 36415; 71046; 80048; 80053; 81001; 82550; 83735; 85025; 85027; 87040; 87077; 87086; 87186; 93005; 96361; 96365; 96372; 96375; 96376; 99285

== ENCOUNTER 2020-02-05 20:17 | Emergency (ER) | payer MEDICARE, OTHER ==
[2020-02-05] MEDS ORDERED: ACETAMINOPHEN TAB 500 MG TAB PO STA (20:55)
[2020-02-05] MEDS ORDERED: SODIUM CHLORIDE 0.9% 1,000 ML IV STA (20:55)
--- NOTE | 2020-02-05 21:14 | ED ---
General Adult HPI - General Chief complaint: Shortness of Breath Stated complaint: shortness of breath Time Seen by Provider: 02/05/20 20:55 Source: patient, family Mode of arrival: wheelchair Limitations: no limitations - History of Present Illness Initial comments: Dictation was produced using [employer] dictation software. please excuse any grammatical, word or spelling errors. This patient was cared for during a federal and state declared state of emergency secondary to Covid 19 Chief Complaint: 29 yo female with past medical history of bronchitis and spina bifida presents with fever, shortness of breath History of Present Illness: This 29-year-old female who last several days she's been having worsening shortness of breath, productive cough. She has history of spina bifida. She also states history of bronchitis. Patient claims of fevers. She however reports that prior to coming to the emergency department she was walking around outside. She believes that her high temperatures from being outside. Patient also has some urinary complaints. Denies any sore throat. She does have mild runny nose. Denies any loss of taste or smell The ROS documented in this emergency department record has been reviewed and confirmed by me. Those systems with pertinent positive or negative responses have been documented in the HPI. All other systems are other negative and/or noncontributory. PHYSICAL EXAM: General Impression: Alert and oriented x3, not in acute distress HEENT: Normocephalic atraumatic, extra-ocular movements intact, pupils equal and reactive to light bilaterally, mucous membranes moist. Cardiovascular: Heart regular rate and rhythm Chest: Able to complete full sentences, no retractions, no tachypnea Abdomen: abdomen soft, non-tender, non-distended, no organomegaly Musculoskeletal: Pulses present and equal in all extremities, no peripheral edema Motor: no focal deficits noted Neurological: CN II-XII grossly intact, no focal motor or sensory deficits noted Skin: Intact with no visualized rashes Psych: Normal affect and mood ED course: 29-year-old female presents with cough. Vital signs upon arrival shows temperature 12.2, heart rate 133, respiratory rate of 26. Patient 95 percent room air. Laboratory evaluation obtained. Mild leukocytosis of 12.3 with 9.5 no chills. Coag panel is unremarkable. Metabolic panel shows 40.8 C-reactive protein. Rest of metabolic panel is negative. Urinalysis consistent with urinary tract infection with 8 white blood cells. Chest x-ray is nonacute. KUB is nonacute. Clinical presentation likely second to urinary tract infection. Patient does no t have any flank pain. Highly doubt that patient's clinical presentation is consistent with pyelonephritis however given that she has fever and UTI there is possibility. Nonetheless, patient is treated with 1 g of ceftriaxone. Patient offered disposition options. She is offered inpatient observation for medical monitoring however she feels that she can manage this at home. Patient clinically stable patient does not have any signs of sepsis at this time. Patient told to take Tylenol for her fevers. She given prescription for antibiotics. Patient told to follow-up with her cultures. Advised to follow-up with her primary care physician as soon as possible. Vision told to return to the emergency department especially with worsening fevers, chills or malaise. EKG interpretation: Ventricular rate 119, sinus tachycardia,. Interval 140, QRS 74, QTC 450. No TX prolongation, no QTC prolongation, no ST or T-wave changes noted.. Overall, this EKG is unremarkable - Related Data Home Medications Medication Instructions Recorded Confirmed Metoprolol Tartrate [Lopressor] 25 mg PO BID 07/09/17 01/17/20 Multivitamins, Thera [Multivitamin 1 tab PO DAILY@1800 09/12/17 01/17/20 (formulary)] Ibuprofen [Motrin Ib] 600 mg PO Q8H PRN 01/17/20 01/17/20 Sennosides-Docusate Sodium 1 tab PO SUWE 01/17/20 01/17/20 [Senokot-S] Previous Rx's Medication Instructions Recorded Cephalexin [Keflex] 250 mg PO Q6HR #28 cap 01/20/20 Cephalexin [Keflex] 500 mg PO Q6HR 7 Days #28 cap 02/06/20 Allergies Allergy/AdvReac Type Severity Reaction Status Date / Time latex Allergy Fever from Verified 02/05/20 20:39 cath Review of Systems ROS Statement: Those systems with pertinent positive or pertinent negative responses have been documented in the HPI. ROS Other: All systems not noted in ROS Statement are negative. 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 [employer] shunt. Past Anesthesia/Blood Transfusion Reactions: No Reported Reaction Past Psychological History: No Psychological Hx Reported Smoking Status: Never smoker Past Alcohol Use History: None Reported Past Drug Use History: None Reported - Past Family History Mother Family Medical History: Cancer Additional Family Medical History / Comment(s): grandparents - lung Father History Unknown: Yes General Exam Limitations: no limitations Course Vital Signs 02/05/20 02/05/20 02/05/20 20:36 20:55 22:07 Temperature 102.2 F H 100.8 F H Pulse Rate 133 H 114 H Respiratory 26 H 18 19 Rate Blood Pressure 122/69 125/83 O2 Sat by Pulse 95 97 Oximetry 02/05/20 02/05/20 23:19 23:52 Temperature 98.8 F Pulse Rate 108 H 98 Respiratory 17 Rate Blood Pressure 120/75 O2 Sat by Pulse 98 Oximetry Medical Decision Making - Lab Data Result diagrams: 02/05/20 21:25 02/05/20 21:37 Lab Results 02/05/20 02/05/20 02/05/20 Range/Units 21:11 21:11 21:25 WBC 12.3 H (3.8-10.6) k/uL RBC 4.62 (3.80-5.40) m/uL Hgb 13.3 (11.4-16.0) gm/dL Hct 40.5 (34.0-46.0) % MCV 87.7 (80.0-100.0) fL MCH 28.9 (25.0-35.0) pg MCHC 32.9 (31.0-37.0) g/dL RDW 13.8 (11.5-15.5) % Plt Count 319 (150-450) k/uL Neutrophils % 77 % Lymphocytes % 15 % Monocytes % 6 % Eosinophils % 0 % Basophils % 0 % Neutrophils # 9.5 H (1.3-7.7) k/uL Lymphocytes # 1.9 (1.0-4.8) k/uL Monocytes # 0.7 (0-1.0) k/uL Eosinophils # 0.0 (0-0.7) k/uL Basophils # 0.0 (0-0.2) k/uL PT (9.0-12.0) sec INR (<1.2) APTT (22.0-30.0) sec Sodium (137-145) mmol/L Potassium (3.5-5.1) mmol/L Chloride (98-107) mmol/L Carbon Dioxide (22-30) mmol/L Anion Gap mmol/L BUN (7-17) mg/dL Creatinine (0.52-1.04) mg/dL Est GFR (CKD-EPI)AfAm (>60 ml/min/1.73 sqM) Est GFR (CKD-EPI)NonAf (>60 ml/min/1.73 sqM) Glucose (74-99) mg/dL Plasma Lactic Acid Mauro (0.7-2.0) mmol/L Calcium (8.4-10.2) mg/dL Magnesium (1.6-2.3) mg/dL C-Reactive Protein (<10.0) mg/L Urine Color Yellow Urine Appearance Cloudy H (Clear) Urine pH 7.0 (5.0-8.0) Ur Specific [place] 1.009 (1.001-1.035) Urine Protein Negative (Negative) Urine Glucose (UA) Negative (Negative) Urine Ketones Negative (Negative) Urine Blood Trace H (Negative) Urine Nitrite Negative (Negative) Urine Bilirubin Negative (Negative) Urine Urobilinogen <2.0 (<2.0) mg/dL Ur Leukocyte Esterase Large H (Negative) Urine RBC 8 H (0-5) /hpf Urine WBC 80 H (0-5) /hpf Ur Squamous Epith Cells 1 (0-4) /hpf Urine Bacteria Rare H (None) /hpf Urine Mucus Rare H (None) /hpf Urine HCG, Qual Not Detected (Not Detectd) 02/05/20 02/05/20 02/05/20 Range/Units 21:37 21:37 21:37 WBC (3.8-10.6) k/uL RBC (3.80-5.40) m/uL Hgb (11.4-16.0) gm/dL Hct (34.0-46.0) % MCV (80.0-100.0) fL MCH (25.0-35.0) pg MCHC (31.0-37.0) g/dL RDW (11.5-15.5) % Plt Count (150-450) k/uL Neutrophils % % Lymphocytes % % Monocytes % % Eosinophils % % Basophils % % Neutrophils # (1.3-7.7) k/uL Lymphocytes # (1.0-4.8) k/uL Monocytes # (0-1.0) k/uL Eosinophils # (0-0.7) k/uL Basophils # (0-0.2) k/uL PT 10.0 (9.0-12.0) sec INR 1.0 (<1.2) APTT 25.0 (22.0-30.0) sec Sodium 133 L (137-145) mmol/L Potassium 3.7 (3.5-5.1) mmol/L Chloride 98 (98-107) mmol/L Carbon Dioxide 22 (22-30) mmol/L Anion Gap 13 mmol/L BUN 10 (7-17) mg/dL Creatinine 0.82 (0.52-1.04) mg/dL Est GFR (CKD-EPI)AfAm >90 (>60 ml/min/1.73 sqM) Est GFR (CKD-EPI)NonAf >90 (>60 ml/min/1.73 sqM) Glucose 105 H (74-99) mg/dL Plasma Lactic Acid Mauro 0.9 (0.7-2.0) mmol/L Calcium 10.2 (8.4-10.2) mg/dL Magnesium 2.0 (1.6-2.3) mg/dL C-Reactive Protein 48.8 H (<10.0) mg/L Urine Color Urine Appearance (Clear) Urine pH (5.0-8.0) Ur Specific [place] (1.001-1.035) Urine Protein (Negative) Urine Glucose (UA) (Negative) Urine Ketones (Negative) Urine Blood (Negative) Urine Nitrite (Negative) Urine Bilirubin (Negative) Urine Urobilinogen (<2.0) mg/dL Ur Leukocyte Esterase (Negative) Urine RBC (0-5) /hpf Urine WBC (0-5) /hpf Ur Squamous Epith Cells (0-4) /hpf Urine Bacteria (None) /hpf Urine Mucus (None) /hpf Urine HCG, Qual (Not Detectd) Disposition Clinical Impression: UTI (urinary tract infection) Disposition: HOME SELF-CARE Condition: Good Instructions (If sedation given, give patient instructions): Urinary Tract Infection in Women (ED) Prescriptions: Cephalexin [Keflex] 500 mg PO Q6HR 7 Days #28 cap Is patient prescribed a controlled substance at d/c from ED?: No Referrals: Erasmo Edward DO [Primary Care Provider] - 1-2 days Time of Disposition: 00:00
[2020-02-05 21:41] LABS: Basophils % (A) 0 %; Eosinophils % (A) 0 %; HCT 40.5 % (34.0-46.0); HGB 13.3 gm/dL (11.4-16.0); Lymphocytes # (A) 1.9 k/uL (1.0-4.8); Lymphocytes % (A) 15 %; MCH 28.9 pg (25.0-35.0); MCHC 32.9 g/dL (31.0-37.0); MCV 87.7 fL (80.0-100.0); Mean Platelet Volume 6.7; Monocytes # (A) 0.7 k/uL (0-1.0); Monocytes % (A) 6 %; Neutrophils # (A) 9.5 k/uL (1.3-7.7); Neutrophils % (A) 77 %; Platelet Count 319 k/uL (150-450); RBC 4.62 m/uL (3.80-5.40); RDW 13.8 % (11.5-15.5); WBC 12.3 k/uL (3.8-10.6)
[2020-02-05 21:55] LABS: Appearance,Urine Cloudy (Clear); Bacteria,Urine Rare /hpf; Bilirubin,Urine Negative (Negative); Blood,Urine Trace (Negative); Color,Urine Yellow; Glucose,Urine (UA) Negative (Negative); Ketones,Urine Negative (Negative); Leukocyte Esterase,Urine Large (Negative); Mucus,Urine Rare /hpf; Nitrite,Urine Negative (Negative); Protein,Urine Negative (Negative); RBC,Urine 8 /hpf (0-5); Specific Gravity,Urine 1.009 (1.001-1.035); Squamous Epithelial Cell,Urine 1 /hpf (0-4); Urobilinogen,Urine <2.0 mg/dL (<2.0); WBC,Urine 80 /hpf (0-5)
[2020-02-05 21:56] LABS: African American GFR (CKD) >90 (>60 ml/min/1.73 sqM); Anion Gap 13 mmol/L; Blood Urea Nitrogen 10 mg/dL (7-17); C Reactive Protein 48.8 mg/L (<10.0); Calcium 10.2 mg/dL (8.4-10.2); Carbon Dioxide 22 mmol/L (22-30); Chloride 98 mmol/L (98-107); Glucose 105 mg/dL (74-99); Non-African American GFR(CKD) >90 (>60 ml/min/1.73 sqM); Potassium 3.7 mmol/L (3.5-5.1); Sodium 133 mmol/L (137-145)
--- NOTE | 2020-02-05 22:11 | XR ---
EXAMINATION TYPE: XR chest 1V portable DATE OF EXAM: 02/05/2020 COMPARISON: 01/17/2020 HISTORY: Cough and fever TECHNIQUE: FINDINGS: Heart size is normal. Lungs appear clear of consolidation. There is ventriculoperitoneal sh unt catheter noted. There is no heart failure. There is no pleural effusion. IMPRESSION: No active cardiopulmonary disease. No change.
--- NOTE | 2020-02-05 22:13 | XR ---
EXAMINATION TYPE: XR KUB portable DATE OF EXAM: 02/05/2020 COMPARISON: 10/30/2018 HISTORY: Constipation TECHNIQUE: 2 views supine FINDINGS: There is no sign of intestinal obstruction or pneumoperitoneum. There is mild retained feca l material in the large bowel. There is ventriculoperitoneal shunt catheter over the right upper quad rant. There is lumbar thoracic levo scoliotic deformity. There are no pathologic calcifications over the kidneys. There is no sign of a mass. 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 IMPRESSION: Nonacute abdomen. No significant change compared to old exam.
[2020-02-05] MEDS ORDERED: cefTRIAXone IN SWFI 1,000 MG/10 ML SYRINGE IVP STA (23:03)
[2020-02-05 23:22] VITALS: BP 120/75; RESP 17; TEMP 98.8
[2020-02-05 23:52] VITALS: PULSE 98
== END 2020-02-06 00:19 | disposition home or self-care (01) ==
LOC: EC 20:17
DX: N39.0 Urinary tract infection, site not specified (principal); R00.0 Tachycardia, unspecified; D72.829 Elevated white blood cell count, unspecified; R05 Cough; R06.02 Shortness of breath; R50.9 Fever, unspecified; R09.89 Other specified symptoms and signs involving the circulatory and respiratory systems; Z91.040 Latex allergy status; Z98.890 Other specified postprocedural states; Z87.798 Personal history of other (corrected) congenital malformations; Z98.2 Presence of cerebrospinal fluid drainage device; Z87.442 Personal history of urinary calculi; Z86.14 Personal history of Methicillin resistant Staphylococcus aureus infection; Z20.828 Contact with and (suspected) exposure to other viral communicable diseases
CPT/HCPCS: 36415; 80048; 83605; 83735; 85025; 85610; 85730; 86140; 81001; 81025; 87040; 87086; 71045; 74018; 99285; 96374; 96361 ×2; U0003; J0696; 87077; 87186

== ENCOUNTER 2020-08-01 08:58 | Emergency (ER) | payer MEDICARE, OTHER ==
[2020-08-01 09:04] VITALS: BP 120/84; PULSE 99; RESP 18; TEMP 98.8
--- NOTE | 2020-08-01 10:06 | XR ---
EXAMINATION TYPE: XR ankle limited LT DATE OF EXAM: 08/01/2020 COMPARISON: 12/05/2018 HISTORY: 29-year-old female abscess overlying the medial malleolus. TECHNIQUE: 2 views FINDINGS: Severe focal soft tissue protuberance measuring up to 5.7 cm overlying the medial malleolus. No under lying osteomyelitis is seen. Patient may be nonweightbearing given diffuse muscle atrophy and some apparent forefoot varus and med ial deviation of the toes. No acute fracture seen. Stable bone island within the calcaneal body. IMPRESSION: Large soft tissue protuberance measuring up to nearly 6 cm overlying the medial malleolus. No underly ing acute osseous abnormality seen.
--- NOTE | 2020-08-01 10:47 | ED ---
Skin/Abscess/FB HPI - General Chief complaint: Skin/Abscess/Foreign Body Stated complaint: Ankle wound Time Seen by Provider: 08/01/20 09:07 Source: patient Mode of arrival: ambulatory Limitations: no limitations - History of Present Illness Initial comments: Patient is a 29-year-old female presenting to emergency Department with complaints of a wound on her left ankle. Patient states she has had chronic wound on her left medial ankle for the past 5-6 years but over the past 12 hours she's noticed the wound has increased in size and noticed a little bit of drainage from it this morning. She states the drainage looked yellowish to clear but did have a smell to it. She denies any fever or chills, no nausea or vomiting. Patient is a paraplegic and has no feeling from the waist down. Patient states she normally sees Dr. Wiggins for this wound. Patient states she does have an appointment on the to see him. Patient has no further compla ints at this time. Upon arrival to the ER, her vitals are stable. - Related Data Home Medications Medication Instructions Recorded Confirmed Metoprolol Tartrate [Lopressor] 25 mg PO BID@0600,1800 07/09/17 08/01/20 Multivitamins, Thera [Multivitamin 1 tab PO HS@1800 09/12/17 08/01/20 (formulary)] Sennosides-Docusate Sodium 1 tab PO INIGUEZ 01/17/20 08/01/20 [Senokot-S] Previous Rx's Medication Instructions Recorded Cephalexin [Keflex] 500 mg PO Q6HR 10 Days #40 cap 08/01/20 Sulfamethox-Tmp 800-160Mg [Bactrim 1 each PO Q12HR 10 Days #20 tab 08/01/20 Ds] Allergies Allergy/AdvReac Type Severity Reaction Status Date / Time latex AdvReac Fever from Verified 08/01/20 10:09 cath Review of Systems ROS Statement: Those systems with pertinent positive or pertinent negative responses have been documented in the HPI. ROS Other: All systems not noted in ROS Statement are negative. 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 GLUER shunt. Past Anesthesia/Blood Transfusion Reactions: No Reported Reaction Past Psychological History: No Psychological Hx Reported Smoking Status: Never smoker Past Alcohol Use History: None Reported Past Drug Use History: None Reported - Past Family History Mother Family Medical History: Cancer Additional Family Medical History / Comment(s): grandparents - lung Father History Unknown: Yes General Exam - General Exam Comments Initial Comments: GENERAL: Patient is well-developed and well-nourished. Patient is nontoxic and in no acute distress. HEAD: Atraumatic, normocephalic. EYES: Pupils equal round and reactive to light, extraocular movements intact, sclera anicteric, conjunctiva are normal. Eyelids were unremarkable. ENT: TMs normal, nares patent, oropharynx clear without exudates. Moist mucous membranes. NECK: Normal range of motion, supple without lymphadenopathy or JVD. LUNGS: Unlabored respirations. Breath sounds clear to auscultation bilaterally and equal. No wheezes rales or rhonchi. HEART: Regular rate and rhythm without murmurs, rubs or gallops. ABDOMEN: Soft, nontender, normoactive bowel sounds. No guarding, no rebound. No masses appreciated. : Deferred MUSCULOSKELETAL: Patient is a paraplegic, no sensation from the waist down, no obvious swelling of bilateral lower extremities. NEUROLOGICAL: Patient is alert and oriented x 3. Cranial nerves II through XII grossly intact. Symmetrical smile. Normal speech. PSYCH: Normal mood, normal affect. SKIN: Warm, Dry, normal turgor, no rashes. Patient has a 3 cm in diameter abscess over the medial malleolus, this is fluctuant to touch, some very mild erythema, no spreading erythema. Limitations: no limitations Course Vital Signs 08/01/20 09:01 Temperature 98.8 F Pulse Rate 99 Respiratory 18 Rate Blood Pressure 120/84 O2 Sat by Pulse 97 Oximetry Procedures - Ione Protocol (Time Out) Procedure Performed:: Incision and drainage Performing Provider: Alfred Sapp Nurse: Lisbet Kennedy Patient Identification (2 identifiers required): Chart, Verbal, Arm Band, Name, Birthdate, Medical Record Number Patient/Legal Nurse Anesthesia Program Director has Confirmed: Identity, Site, Procedure, Consent Site: left ankle Site Marked: Yes Site Verified With Patient/Guardian: Yes - Incision & Drainage Consent Obtained: verbal consent, written consent Indication: Abscess Site: lower extremity (Left medial ankle) Size (cm): 3 I&D Cleaning Method: Chloroprep Sterile Field Used?: Yes Scalpel Used: #11 I&D Drainage Obtained: Blood Culture Obtained?: No Patient Tolerated Procedure: well Medical Decision Making - Medical Decision Making Patient is a 29-year-old female here with a 3 cm abscess over the left medial malleolus. X-rays revealed no bony abnormalities. No fevers or chills, no others systemic symptoms. We did attempt an I&D of an abscess, however we'll only able to obtain blood from the site. Patient's wound was covered with a bandage. We will start patient on Bactrim and Keflex for possible abscess. She will follow-up with her regular doctor on the . Strict return parameters were discussed with the patient and she verbalized understanding. Case discussed with Dr. Sapp. Disposition Clinical Impression: Abscess of skin of left ankle Disposition: HOME SELF-CARE Condition: Stable Instructions (If sedation given, give patient instructions): Abscess (ED) Additional Instructions: Please return to the Emergency Department if symptoms worsen or any other concerns. Take both antibiotics as prescribed. Follow-up with your doctor, Dr. Wiggins, as discussed on the . Prescriptions: Sulfamethox-Tmp 800-160Mg [Bactrim Ds] 1 each PO Q12HR 10 Days #20 tab Cephalexin [Keflex] 500 mg PO Q6HR 10 Days #40 cap Is patient prescribed a controlled substance at d/c from ED?: No Referrals: Erasmo Edward DO [Primary Care Provider] - 1-2 days
== END 2020-08-01 10:59 | disposition home or self-care (01) ==
LOC: EC 08:58
DX: L02.416 Cutaneous abscess of left lower limb (principal); G82.20 Paraplegia, unspecified; Z91.040 Latex allergy status; Z86.14 Personal history of Methicillin resistant Staphylococcus aureus infection
CPT/HCPCS: 10060; 99283

== ENCOUNTER 2020-10-22 09:19 | Emergency (ER) | payer MEDICARE, OTHER ==
[2020-10-22 09:25] VITALS: RESP 18
[2020-10-22] MEDS ORDERED: SODIUM CHLORIDE 0.9% 1,000 ML IV STA (09:37)
[2020-10-22] MEDS ORDERED: ACETAMINOPHEN TAB 500 MG TAB PO STA (09:37)
--- NOTE | 2020-10-22 09:53 | ED ---
Female Urogenital HPI - General Chief complaint: Urogenital Stated complaint: Stomach pain Time Seen by Provider: 10/22/20 09:28 Source: patient Mode of arrival: wheelchair Limitations: physical limitation - History of Present Illness Initial comments: Patient is a 30-year-old female, with history of spina bifida, multiple UTIs, presenting to the emergency department with concerns of lower abdominal pain that started this morning. She is concerned she has a UTI. She states she felt like she had a fever today but did not check it. She's also been really thirsty and low appetite. She did not take any Tylenol or Motrin today. She denies chest pain or shortness of breath, no cough, no nausea or vomiting, no diarrhea. She has no further complaints. Upon arrival to the ER, her temperature is 100.4, rest of vitals normal. Last Menstrual Period: 10/19/20 - Related Data Home Medications Medication Instructions Recorded Confirmed Metoprolol Tartrate [Lopressor] 25 mg PO BID@0600,1800 07/09/17 08/01/20 Multivitamins, Thera [Multivitamin 1 tab PO HS@1800 09/12/17 08/01/20 (formulary)] Sennosides-Docusate Sodium 1 tab PO INIGUEZ 01/17/20 08/01/20 [Senokot-S] Previous Rx's Medication Instructions Recorded Cephalexin [Keflex] 500 mg PO Q6HR 10 Days #40 cap 08/01/20 Sulfamethox-Tmp 800-160Mg [Bactrim 1 each PO Q12HR 10 Days #20 tab 08/01/20 Ds] Cephalexin [Keflex] 500 mg PO BID 5 Days #10 cap 10/22/20 Allergies Allergy/AdvReac Type Severity Reaction Status Date / Time latex AdvReac Fever from Verified 10/22/20 09:25 cath Review of Systems ROS Statement: Those systems with pertinent positive or pertinent negative responses have been documented in the HPI. ROS Other: All systems not noted in ROS Statement are negative. 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 Past Anesthesia/Blood Transfusion Reactions: No Reported Reaction Past Psychological History: No Psychological Hx Reported Smoking Status: Never smoker Past Alcohol Use History: None Reported Past Drug Use History: None Reported - Past Family History Mother Family Medical History: Cancer Additional Family Medical History / Comment(s): grandparents - lung Father History Unknown: Yes General Exam - General Exam Comments Initial Comments: GENERAL: Patient is well-developed and well-nourished. Patient is nontoxic and in no acute distress. HEAD: Atraumatic, normocephalic. EYES: Pupils equal round and reactive to light, extraocular movements intact, sclera anicteric, conjunctiva are normal. Eyelids were unremarkable. ENT: TMs normal, nares patent, oropharynx clear without exudates. Moist mucous membranes. NECK: Normal range of motion, supple without lymphadenopathy or JVD. LUNGS: Unlabored respirations. Breath sounds clear to auscultation bilaterally and equal. No wheezes rales or rhonchi. HEART: Regular rate and rhythm without murmurs, rubs or gallops. ABDOMEN: Soft, nontender, normoactive bowel sounds. No guarding, no rebound. No masses appreciated. : Deferred MUSCULOSKELETAL: History of spina bifida, decreased motion of the lower extremities and strength. no pitting or edema. No clubbing or cyanosis. NEUROLOGICAL: Patient is alert and oriented x 3. Motor and sensory are also intact. Cranial nerves II through XII grossly intact. Symmetrical smile. Normal speech. PSYCH: Normal mood, normal affect. SKIN: Warm, Dry, normal turgor, no rashes or lesions noted. Limitations: physical limitation Course Vital Signs 10/22/20 10/22/20 10/22/20 09:23 11:42 12:39 Temperature 100.4 F H 99.2 F 99.2 F Pulse Rate 62 102 H 102 H Respiratory 18 18 18 Rate Blood Pressure 113/77 108/71 108/71 O2 Sat by Pulse 100 97 97 Oximetry Medical Decision Making - Medical Decision Making Patient is a 30-year-old female, history of spina bifida here for lower abdominal pain, concerns for UTI. She did arrive several afebrile, rest of vitals normal. Patient's white count is normal, sodium potassium is slightly low at 133, 3.3 respectively. Urine shows large amount leukocyte esterase and WBCs, bacteria present. Urine culture is pending. Patient be given 1 g Rocephin here in the ER as well as some fluids and Tylenol. She feels improvement in her symptoms. Vital signs are improved as well. Patient is stable for discharge. She will increase her fluid intake, take antibiotics as directed. Also continue Tylenol as needed for any fevers. Strict return parameters were discussed with the patient and she verbalized understanding. Case discussed with Dr. Mcqueen. - Lab Data Result diagrams: 10/22/20 09:48 10/22/20 11:40 Lab Results 10/22/20 10/22/20 10/22/20 Range/Units 09:48 09:48 09:48 WBC 6.5 (3.8-10.6) k/uL RBC 4.60 (3.80-5.40) m/uL Hgb 13.9 (11.4-16.0) gm/dL Hct 39.7 (34.0-46.0) % MCV 86.3 (80.0-100.0) fL MCH 30.3 (25.0-35.0) pg MCHC 35.2 (31.0-37.0) g/dL RDW 13.6 (11.5-15.5) % Plt Count (150-450) k/uL MPV 10.1 Lymphocytes % 26 % Monocytes % 10 % Eosinophils % 0 % Basophils % 1 % Neutrophils # 3.9 (1.3-7.7) k/uL Lymphocytes # 1.7 (1.0-4.8) k/uL Monocytes # 0.6 (0-1.0) k/uL Eosinophils # 0.0 (0-0.7) k/uL Basophils # 0.1 (0-0.2) k/uL Manual Slide Review Performed RBC Morphology Normal Sodium (137-145) mmol/L Potassium (3.5-5.1) mmol/L Chloride (98-107) mmol/L Carbon Dioxide (22-30) mmol/L Anion Gap mmol/L BUN (7-17) mg/dL Creatinine (0.52-1.04) mg/dL Est GFR (CKD-EPI)AfAm (>60 ml/min/1.73 sqM) Est GFR (CKD-EPI)NonAf (>60 ml/min/1.73 sqM) Glucose (74-99) mg/dL Calcium (8.4-10.2) mg/dL Total Bilirubin (0.2-1.3) mg/dL AST (14-36) U/L ALT (4-34) U/L Alkaline Phosphatase (38-126) U/L Total Protein (6.3-8.2) g/dL Albumin (3.5-5.0) g/dL Urine Color Yellow Urine Appearance Turbid H (Clear) Urine pH 5.5 (5.0-8.0) Ur Specific [place] 1.018 (1.001-1.035) Urine Protein 1+ H (Negative) Urine Glucose (UA) Negative (Negative) Urine Ketones 2+ H (Negative) Urine Blood Negative (Negative) Urine Nitrite Negative (Negative) Urine Bilirubin Negative (Negative) Urine Urobilinogen <2.0 (<2.0) mg/dL Ur Leukocyte Esterase Large H (Negative) Urine RBC 9 H (0-5) /hpf Urine WBC 131 H (0-5) /hpf Ur Squamous Epith Cells 2 (0-4) /hpf Urine Bacteria Rare H (None) /hpf Urine Mucus Rare H (None) /hpf Urine HCG, Qual Not Detected (Not Detectd) 10/22/20 Range/Units 11:40 WBC (3.8-10.6) k/uL RBC (3.80-5.40) m/uL Hgb (11.4-16.0) gm/dL Hct (34.0-46.0) % MCV (80.0-100.0) fL MCH (25.0-35.0) pg MCHC (31.0-37.0) g/dL RDW (11.5-15.5) % Plt Count (150-450) k/uL MPV Lymphocytes % % Monocytes % % Eosinophils % % Basophils % % Neutrophils # (1.3-7.7) k/uL Lymphocytes # (1.0-4.8) k/uL Monocytes # (0-1.0) k/uL Eosinophils # (0-0.7) k/uL Basophils # (0-0.2) k/uL Manual Slide Review RBC Morphology Sodium 133 L (137-145) mmol/L Potassium 3.3 L (3.5-5.1) mmol/L Chloride 106 (98-107) mmol/L Carbon Dioxide 17 L (22-30) mmol/L Anion Gap 10 mmol/L BUN 13 (7-17) mg/dL Creatinine 0.68 (0.52-1.04) mg/dL Est GFR (CKD-EPI)AfAm >90 (>60 ml/min/1.73 sqM) Est GFR (CKD-EPI)NonAf >90 (>60 ml/min/1.73 sqM) Glucose 84 (74-99) mg/dL Calcium 8.2 L (8.4-10.2) mg/dL Total Bilirubin 0.4 (0.2-1.3) mg/dL AST 25 (14-36) U/L ALT 15 (4-34) U/L Alkaline Phosphatase 50 (38-126) U/L Total Protein 6.1 L (6.3-8.2) g/dL Albumin 3.4 L (3.5-5.0) g/dL Urine Color Urine Appearance (Clear) Urine pH (5.0-8.0) Ur Specific [place] (1.001-1.035) Urine Protein (Negative) Urine Glucose (UA) (Negative) Urine Ketones (Negative) Urine Blood (Negative) Urine Nitrite (Negative) Urine Bilirubin (Negative) Urine Urobilinogen (<2.0) mg/dL Ur Leukocyte Esterase (Negative) Urine RBC (0-5) /hpf Urine WBC (0-5) /hpf Ur Squamous Epith Cells (0-4) /hpf Urine Bacteria (None) /hpf Urine Mucus (None) /hpf Urine HCG, Qual (Not Detectd) Disposition Clinical Impression: Dehydration, UTI (urinary tract infection) Disposition: HOME SELF-CARE Condition: Stable Instructions (If sedation given, give patient instructions): Urinary Tract Infection in Women (ED) Additional Instructions: Please return to the Emergency Department if symptoms worsen or any other concerns. Increase fluid intake. Take antibiotic as prescribed, finish entire course. Follow-up with your regular family doctor. Prescriptions: Cephalexin [Keflex] 500 mg PO BID 5 Days #10 cap Is patient prescribed a controlled substance at d/c from ED?: No Referrals: Erasmo Edward DO [Primary Care Provider] - 1-2 days Time of Disposition: 12:14
[2020-10-22 10:31] LABS: Appearance,Urine Turbid (Clear); Bacteria,Urine Rare /hpf; Bilirubin,Urine Negative (Negative); Blood,Urine Negative (Negative); Color,Urine Yellow; Glucose,Urine (UA) Negative (Negative); Ketones,Urine 2+ (Negative); Leukocyte Esterase,Urine Large (Negative); Mucus,Urine Rare /hpf; Nitrite,Urine Negative (Negative); PH, Urine 5.5 (5.0-8.0); Protein,Urine 1+ (Negative); RBC,Urine 9 /hpf (0-5); Specific Gravity,Urine 1.018 (1.001-1.035); Squamous Epithelial Cell,Urine 2 /hpf (0-4); Urobilinogen,Urine <2.0 mg/dL (<2.0); WBC,Urine 131 /hpf (0-5)
[2020-10-22 10:52] LABS: Basophils # (A) 0.1 k/uL (0-0.2); Basophils % (A) 1 %; Eosinophils % (A) 0 %; HCT 39.7 % (34.0-46.0); HGB 13.9 gm/dL (11.4-16.0); Lymphocytes # (A) 1.7 k/uL (1.0-4.8); Lymphocytes % (A) 26 %; MCH 30.3 pg (25.0-35.0); MCHC 35.2 g/dL (31.0-37.0); MCV 86.3 fL (80.0-100.0); Mean Platelet Volume 10.1; Monocytes # (A) 0.6 k/uL (0-1.0); Monocytes % (A) 10 %; Neutrophils # (A) 3.9 k/uL (1.3-7.7); RDW 13.6 % (11.5-15.5); WBC 6.5 k/uL (3.8-10.6)
[2020-10-22 11:43] VITALS: BP 108/71; PULSE 102; TEMP 99.2
[2020-10-22] MEDS ORDERED: cefTRIAXone IN SWFI 1,000 MG/10 ML SYRINGE IVP STA (12:07)
[2020-10-22 12:09] LABS: ALT 15 U/L (4-34); AST 25 U/L (14-36); African American GFR (CKD) >90 (>60 ml/min/1.73 sqM); Albumin 3.4 g/dL (3.5-5.0); Alkaline Phosphatase 50 U/L (38-126); Anion Gap 10 mmol/L; Blood Urea Nitrogen 13 mg/dL (7-17); Calcium 8.2 mg/dL (8.4-10.2); Carbon Dioxide 17 mmol/L (22-30); Chloride 106 mmol/L (98-107); Glucose 84 mg/dL (74-99); Non-African American GFR(CKD) >90 (>60 ml/min/1.73 sqM); Potassium 3.3 mmol/L (3.5-5.1); Sodium 133 mmol/L (137-145); Total Bilirubin 0.4 mg/dL (0.2-1.3); Total Protein 6.1 g/dL (6.3-8.2)
== END 2020-10-22 12:41 | disposition home or self-care (01) ==
LOC: EC 09:19
DX: N39.0 Urinary tract infection, site not specified (principal); E86.0 Dehydration
CPT/HCPCS: 36415; 80053; 85025; 81001; 81025; 87086; 99284; 96374; J0696

== ENCOUNTER 2020-10-24 17:22 | Emergency (ER) | payer OTHER ==
--- NOTE | 2020-10-24 19:39 | ED ---
General Adult HPI - General Stated complaint: possible covid - History of Present Illness Initial comments: 30-year-old male presents to emergency department with a chief complaint of a UTI and a cough. States she was diagnosed with urinary tract infection and started on Keflex 2 days ago. States the inner buttocks or not alleviate his symptoms. Does report dysuria or increased urgency or frequency. Denies any flank pain or abdominal pain. Patient is also reporting a nonproductive cough the last several days along with chills and fevers. Once gets tested for comfort. Patient is also taking 25 mg of metoprolol for tachycardia but has not been able to take an due to being nauseous. Denies any abdominal flank pain. - Related Data Home Medications Medication Instructions Recorded Confirmed Metoprolol Tartrate [Lopressor] 25 mg PO BID@0600,1800 07/09/17 08/01/20 Multivitamins, Thera [Multivitamin 1 tab PO HS@1800 09/12/17 08/01/20 (formulary)] Sennosides-Docusate Sodium 1 tab PO INIGUEZ 01/17/20 08/01/20 [Senokot-S] Previous Rx's Medication Instructions Recorded Cephalexin [Keflex] 500 mg PO Q6HR 10 Days #40 cap 08/01/20 Sulfamethox-Tmp 800-160Mg [Bactrim 1 each PO Q12HR 10 Days #20 tab 08/01/20 Ds] Cephalexin [Keflex] 500 mg PO BID 5 Days #10 cap 10/22/20 Ondansetron Odt [Zofran Odt] 4 mg PO Q8HR PRN #14 tab 10/24/20 Sulfamethox-Tmp 800-160Mg [Bactrim 1 each PO Q12HR #14 tab 10/24/20 Ds] Allergies Allergy/AdvReac Type Severity Reaction Status Date / Time latex AdvReac Fever from Verified 10/24/20 19:40 cath Review of Systems ROS Statement: Those systems with pertinent positive or pertinent negative responses have been documented in the HPI. ROS Other: All systems not noted in ROS Statement are negative. 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 Past Anesthesia/Blood Transfusion Reactions: No Reported Reaction Past Psychological History: No Psychological Hx Reported Smoking Status: Never smoker Past Alcohol Use History: None Reported Past Drug Use History: None Reported - Past Family History Mother Family Medical History: Cancer Additional Family Medical History / Comment(s): grandparents - lung Father History Unknown: Yes General Exam Limitations: no limitations General appearance: alert, in no apparent distress Head exam: Present: atraumatic, normocephalic, normal inspection Eye exam: Present: normal appearance, PERRL, EOMI Pupils: Present: normal accommodation ENT exam: Present: normal exam, normal oropharynx, mucous membranes moist Neck exam: Present: normal inspection, full ROM. Absent: tenderness Respiratory exam: Present: normal lung sounds bilaterally. Absent: respiratory distress Cardiovascular Exam: Present: regular rate, normal rhythm, normal heart sounds GI/Abdominal exam: Present: soft. Absent: distended, tenderness (No abdominal tenderness), guarding, rebound Extremities exam: Present: normal inspection, full ROM, normal capillary refill. Absent: tenderness Back exam: Present: normal inspection, full ROM. Absent: tenderness, CVA te nderness (R), CVA tenderness (L) Neurological exam: Present: alert, oriented X3 Psychiatric exam: Present: normal affect, normal mood Skin exam: Present: warm, dry, intact, normal color Course Vital Signs 10/24/20 10/24/20 19:39 21:29 Temperature 103 F H 101 F H Pulse Rate 140 H 100 Respiratory 18 20 Rate Blood Pressure 112/78 107/61 O2 Sat by Pulse 94 L 95 Oximetry Medical Decision Making - Medical Decision Making 30-year-old male presents to emergency Department with a chief complaint of fever and a UTI. On physical examination, patient is febrile but there is no abdominal or CVA tenderness. Urine culture from 2 days ago revealed positive for Klebsiella and she is sensitive to first generation several sports. However, she is requesting Bactrim. I will prescribe Bactrim. Also give her a starter pack of the medication. Patient was also given 25 mg metoprolol and Zofran. Will give for a starter pack of Zofran and a prescription of it. Initially she was febrile and tachycardic. On reevaluation, her fever and heart rate improved. Patient advised to quarantine. Take Tylenol for the fever. Drink plenty of fluids. Return to emergency department if symptoms worsen. - Lab Data Lab Results 10/24/20 10/24/20 10/24/20 Range/Units 19:43 19:43 19:43 Urine Color Yellow Urine Appearance Cloudy H (Clear) Urine pH 6.0 (5.0-8.0) Ur Specific [place] 1.014 (1.001-1.035) Urine Protein 1+ H (Negative) Urine Glucose (UA) Negative (Negative) Urine Ketones 3+ H (Negative) Urine Blood Negative (Negative) Urine Nitrite Negative (Negative) Urine Bilirubin Negative (Negative) Urine Urobilinogen <2.0 (<2.0) mg/dL Ur Leukocyte Esterase Negative (Negative) Urine RBC 3 (0-5) /hpf Urine WBC 58 H (0-5) /hpf Ur Squamous Epith Cells 1 (0-4) /hpf Urine Mucus Rare H (None) /hpf Urine HCG, Qual Not Detected (Not Detectd) Coronavirus (PCR) Detected A (Not Detectd) Disposition Clinical Impression: COVID-19, UTI (urinary tract infection) Disposition: HOME SELF-CARE Condition: Stable Instructions (If sedation given, give patient instructions): Urinary Tract Infection in Children (ED) Additional Instructions: Stop taking the Keflex and start taking the Bactrim. Please return to the Emergency Department if symptoms worsen or any other concerns. Prescriptions: Sulfamethox-Tmp 800-160Mg [Bactrim Ds] 1 each PO Q12HR #14 tab Is patient prescribed a controlled substance at d/c from ED?: No Referrals: Erasmo Edward DO [Primary Care Provider] - 1-2 days Time of Disposition: 21:36
[2020-10-24 19:54] LABS: Appearance,Urine Cloudy (Clear); Bilirubin,Urine Negative (Negative); Blood,Urine Negative (Negative); Color,Urine Yellow; Glucose,Urine (UA) Negative (Negative); Ketones,Urine 3+ (Negative); Leukocyte Esterase,Urine Negative (Negative); Mucus,Urine Rare /hpf; Nitrite,Urine Negative (Negative); Protein,Urine 1+ (Negative); RBC,Urine 3 /hpf (0-5); Specific Gravity,Urine 1.014 (1.001-1.035); Squamous Epithelial Cell,Urine 1 /hpf (0-4); Urobilinogen,Urine <2.0 mg/dL (<2.0); WBC,Urine 58 /hpf (0-5)
[2020-10-24] MEDS ORDERED: ACETAMINOPHEN TAB 500 MG TAB PO STA (20:31)
[2020-10-24] MEDS ORDERED: METOPROLOL TARTRATE 25 MG TAB PO STA (20:40)
[2020-10-24] MEDS ORDERED: ONDANSETRON ODT 4 MG TAB PO STA (20:40)
[2020-10-24 21:30] VITALS: BP 107/61; PULSE 100; RESP 20; TEMP 101
[2020-10-24] MEDS ORDERED: SULFAMETH-TMP DS STARTER PACK 2 TAB BTL PO STA (21:30)
[2020-10-24] MEDS ORDERED: ONDANSETRON 4 MG ODT STARTER PACK 2 TAB BTL PO STA (21:30)
== END 2020-10-24 21:41 | disposition home or self-care (01) ==
LOC: EC 17:22
DX: U07.1 COVID-19 (principal); N39.0 Urinary tract infection, site not specified; Z79.899 Other long term (current) drug therapy
CPT/HCPCS: 81001; 81025; 87086; 87635; 99283; S0119

== ENCOUNTER 2020-10-29 23:35 | Inpatient (IN) | payer OTHER ==
[2020-10-29] MEDS ORDERED: ACETAMINOPHEN TAB 325 MG TAB PO STA (23:50)
[2020-10-29] MEDS ORDERED: DEXAMETHASONE SOD PHOSPHATE 4 MG/ML 1 ML VIAL IV STA (23:54)
[2020-10-30] MEDS ORDERED: SODIUM CHLORIDE 0.9% 500 ML 500 ML IV STA (00:06)
[2020-10-30] MEDS ORDERED: SODIUM CHLORIDE 0.9% 1,000 ML IV STA (00:06)
--- NOTE | 2020-10-30 00:47 | ED ---
SOB HPI - General Chief Complaint: Shortness of Breath Stated Complaint: Weakness, Covid+ Time Seen by Provider: 10/29/20 23:49 Source: patient Mode of arrival: ambulatory Limitations: physical limitation - History of Present Illness Initial Comments: This patient is a 30-year-old woman who presents to be evaluated for shortness of breath, cough, fevers. She was diagnosed with coving 19 infection. Patient states that over the past couple of days she has been feeling worse, mainly with increasing myalgias and now feeling dyspneic as well. MD Complaint: shortness of breath, cough -: days(s) Severity: moderate Quality: aching Consistency: constant Improves With: nothing Worsens With: nothing Associated Symptoms: fever, cough Treatments Prior to Arrival: none - Related Data Home Oxygen Therapy: No Home Medications Medication Instructions Recorded Confirmed Metoprolol Tartrate [Lopressor] 25 mg PO BID@0600,1800 07/09/17 10/30/20 Multivitamins, Thera [Multivitamin 1 tab PO HS@1800 09/12/17 10/30/20 (formulary)] Sulfamethox-Tmp 800-160Mg [Bactrim 1 tab PO Q12HR 10/30/20 10/30/20 Ds] Previous Rx's Medication Instructions Recorded Ondansetron Odt [Zofran Odt] 4 mg PO Q8HR PRN #14 tab 10/24/20 Allergies Allergy/AdvReac Type Severity Reaction Status Date / Time latex AdvReac Fever from Verified 10/30/20 08:15 cath Review of Systems ROS Statement: Those systems with pertinent positive or pertinent negative responses have been documented in the HPI. ROS Other: All systems not noted in ROS Statement are negative. 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 covid 11/08 History of Any Multi-Drug Resistant Organisms: MRSA Date of last positivie culture/infection: 12/05/18 MDRO Source:: Left Ankle Past Surgical History: Back Surgery, Bladder Surgery, Hernia Repair, Orthopedic Surgery Additional Past Surgical History / Comment(s): Multi orthopedic surgeries since childhood. 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 Past Anesthesia/Blood Transfusion Reactions: No Reported Reaction Past Psychological History: No Psychological Hx Reported Smoking Status: Never smoker Past Alcohol Use History: None Reported Past Drug Use History: None Reported - Past Family History Mother Family Medical History: Cancer Additional Family Medical History / Comment(s): grandparents - lung Father History Unknown: Yes General Exam Limitations: physical limitation General appearance: alert, in no apparent distress Head exam: Present: atraumatic, normocephalic Eye exam: Present: normal appearance. Absent: scleral icterus, conjunctival injection Neck exam: Present: normal inspection, full ROM Respiratory exam: Present: respiratory distress, rales (Bilateral bases). Absent: wheezes, rhonchi, stridor, accessory muscle use, decreased breath sounds Cardiovascular Exam: Present: normal rhythm, tachycardia, normal heart sounds. Absent: systolic murmur, diastolic murmur, rubs, gallop GI/Abdominal exam: Present: soft. Absent: distended, tenderness, guarding, rebound Extremities exam: Present: normal capillary refill. Absent: pedal edema, calf tenderness Back exam: Present: normal inspection. Absent: CVA tenderness (R), CVA tenderness (L) Neurological exam: Present: alert Skin exam: Present: warm, dry, intact, normal color. Absent: rash Course Vital Signs 10/29/20 10/30/20 10/30/20 23:41 00:20 01:30 Temperature 101.2 F H Pulse Rate 139 H 114 H 105 H Respiratory 26 H 20 Rate Blood Pressure 109/60 112/72 O2 Sat by Pulse 75 L 89 L 89 L Oximetry 10/30/20 10/30/20 10/30/20 02:13 04:05 06:36 Temperature 99 F 97.7 F Pulse Rate 112 H 96 84 Respiratory 20 24 20 Rate Blood Pressure 116/80 107/72 98/64 O2 Sat by Pulse 90 L 89 L 91 L Oximetry 10/30/20 08:07 Temperature Pulse Rate 77 Respiratory 22 Rate Blood Pressure 100/67 O2 Sat by Pulse 89 L Oximetry Medical Decision Making - Lab Data Result diagrams: 10/30/20 00:51 10/30/20 00:51 Lab Results 10/30/20 10/30/20 10/30/20 Range/Units 00:51 00:51 00:51 WBC 7.0 (3.8-10.6) k/uL RBC 4.48 (3.80-5.40) m/uL Hgb 13.0 (11.4-16.0) gm/dL Hct 37.7 (34.0-46.0) % MCV 84.1 (80.0-100.0) fL MCH 29.1 (25.0-35.0) pg MCHC 34.6 (31.0-37.0) g/dL RDW 13.6 (11.5-15.5) % Plt Count 317 (150-450) k/uL MPV 7.1 Neutrophils % 78 % Lymphocytes % 13 % Monocytes % 5 % Eosinophils % 0 % Basophils % 1 % Neutrophils # 5.4 (1.3-7.7) k/uL Lymphocytes # 0.9 L (1.0-4.8) k/uL Monocytes # 0.3 (0-1.0) k/uL Eosinophils # 0.0 (0-0.7) k/uL Basophils # 0.0 (0-0.2) k/uL PT 10.7 (9.0-12.0) sec INR 1.0 (<1.2) APTT 24.1 (22.0-30.0) sec D-Dimer 1.29 H (<0.60) mg/L FEU Sodium 137 (137-145) mmol/L Potassium 4.0 (3.5-5.1) mmol/L Chloride 102 (98-107) mmol/L Carbon Dioxide 19 L (22-30) mmol/L Anion Gap 16 mmol/L BUN 25 H (7-17) mg/dL Creatinine 1.08 H (0.52-1.04) mg/dL Est GFR (CKD-EPI)AfAm 79 (>60 ml/min/1.73 sqM) Est GFR (CKD-EPI)NonAf 69 (>60 ml/min/1.73 sqM) Glucose 101 H (74-99) mg/dL Plasma Lactic Acid Mauro (0.7-2.0) mmol/L Calcium 9.0 (8.4-10.2) mg/dL Magnesium 2.7 H (1.6-2.3) mg/dL Total Bilirubin 0.7 (0.2-1.3) mg/dL AST 92 H (14-36) U/L ALT 23 (4-34) U/L Alkaline Phosphatase 58 (38-126) U/L Lactate Dehydrogenase 3112 H (313-618) U/L C-Reactive Protein 81.5 H (<10.0) mg/L Total Protein 7.3 (6.3-8.2) g/dL Albumin 4.0 (3.5-5.0) g/dL 10/30/20 Range/Units 00:51 WBC (3.8-10.6) k/uL RBC (3.80-5.40) m/uL Hgb (11.4-16.0) gm/dL Hct (34.0-46.0) % MCV (80.0-100.0) fL MCH (25.0-35.0) pg MCHC (31.0-37.0) g/dL RDW (11.5-15.5) % Plt Count (150-450) k/uL MPV Neutrophils % % Lymphocytes % % Monocytes % % Eosinophils % % Basophils % % Neutrophils # (1.3-7.7) k/uL Lymphocytes # (1.0-4.8) k/uL Monocytes # (0-1.0) k/uL Eosinophils # (0-0.7) k/uL Basophils # (0-0.2) k/uL PT (9.0-12.0) sec INR (<1.2) APTT (22.0-30.0) sec D-Dimer (<0.60) mg/L FEU Sodium (137-145) mmol/L Potassium (3.5-5.1) mmol/L Chloride (98-107) mmol/L Carbon Dioxide (22-30) mmol/L Anion Gap mmol/L BUN (7-17) mg/dL Creatinine (0.52-1.04) mg/dL Est GFR (CKD-EPI)AfAm (>60 ml/min/1.73 sqM) Est GFR (CKD-EPI)NonAf (>60 ml/min/1.73 sqM) Glucose (74-99) mg/dL Plasma Lactic Acid Mauro 1.0 (0.7-2.0) mmol/L Calcium (8.4-10.2) mg/dL Magnesium (1.6-2.3) mg/dL Total Bilirubin (0.2-1.3) mg/dL AST (14-36) U/L ALT (4-34) U/L Alkaline Phosphatase (38-126) U/L Lactate Dehydrogenase (313-618) U/L C-Reactive Protein (<10.0) mg/L Total Protein (6.3-8.2) g/dL Albumin (3.5-5.0) g/dL - EKG Data -: EKG Interpreted by Me EKG shows normal: sinus rhythm, axis (Normal), intervals (Normal), QRS complexes (Possible old inferior infarct.), ST-T waves (Normal) Rate: tachycardia (Rate 114 bpm) Disposition Clinical Impression: Pneumonia due to COVID-19 virus Disposition: ADMITTED IP TO THIS HOSP Condition: Serious Is patient prescribed a controlled substance at d/c from ED?: No
[2020-10-30 01:07] LABS: Basophils % (A) 1 %; Eosinophils % (A) 0 %; HCT 37.7 % (34.0-46.0); Lymphocytes # (A) 0.9 k/uL (1.0-4.8); Lymphocytes % (A) 13 %; MCH 29.1 pg (25.0-35.0); MCHC 34.6 g/dL (31.0-37.0); MCV 84.1 fL (80.0-100.0); Mean Platelet Volume 7.1; Monocytes # (A) 0.3 k/uL (0-1.0); Monocytes % (A) 5 %; Neutrophils # (A) 5.4 k/uL (1.3-7.7); Neutrophils % (A) 78 %; Platelet Count 317 k/uL (150-450); RBC 4.48 m/uL (3.80-5.40); RDW 13.6 % (11.5-15.5)
[2020-10-30 01:21] LABS: C Reactive Protein 81.5 mg/L (<10.0); Magnesium 2.7 mg/dL (1.6-2.3); Total Bilirubin 0.7 mg/dL (0.2-1.3); Total Protein 7.3 g/dL (6.3-8.2)
[2020-10-30 01:26] LABS: Partial Thromboplastin Time 24.1 sec (22.0-30.0); Prothrombin Time 10.7 sec (9.0-12.0)
--- NOTE | 2020-10-30 01:33 | XR ---
EXAM: XR Chest, 1 View CLINICAL HISTORY: ITS.REASON XR Reason: Suspected COVID-19 pneumonia TECHNIQUE: Frontal view of the chest. COMPARISON: 02/05/2020 FINDINGS: Lungs: Very low lung volumes, limiting evaluation. Patchy bilateral opacities, especially in the lower lungs, new since prior. Pleural space: Unremarkable. No pneumothorax. Heart: Unremarkable. No cardiomegaly. Mediastinum: Unremarkable. Bones/joints: Unremarkable. Tubes, lines and devices: Stable right-sided LUMBER STACKER DRIVER shunt catheter. IMPRESSION: Very low lung volumes, limiting evaluation. Patchy bilateral opacities, especially in the lower lungs, new since prior. May represent infectious/inflammatory process.
[2020-10-30 01:36] LABS: D-Dimer 1.29 mg/L FEU (<0.60)
[2020-10-30] MEDS ORDERED: NALOXONE 0.4 MG/ML 1 ML VIAL IV PRN (03:20)
--- NOTE | 2020-10-30 03:47 | CT ---
EXAM: CT Angiography Chest With Intravenous Contrast CLINICAL HISTORY: ITS.REASON CT Reason: possible PE r/o PE, elevatedd-dimer, TECHNIQUE: Axial computed tomographic angiography images of the chest with intravenous contrast. CTDI is 14.67 mGy and DLP is 305.4 mGy-cm. This CT exam was performed using one or more of the following dose reduction techniques: automated exposure control, adjustment of the mA and/or kV according to patient size, and/or use of iterative reconstruction technique. MIP reconstructed images were created and reviewed. CONTRAST: [id number]/40ml given and 60ml wasted COMPARISON: Chest x-ray today. FINDINGS: Pulmonary arteries: Breathing motion artifact somewhat limits evaluation of peripheral arteries. No pulmonary embolism visualized. Aorta: No acute findings. No thoracic aortic aneurysm. Lungs: Areas of consolidation and groundglass opacities bilaterally throughout the lungs. Pleural space: Unremarkable. No significant effusion. No pneumothorax. Heart: Unremarkable. No cardiomegaly. No significant pericardial effusion. No evidence of RV dysfunction. Bones/joints: Thoracolumbar scoliosis. Segmentation anomalies in the upper thoracic spine. Partially visualized hardware in the lower thoracic spine. No acute fracture. No dislocation. Soft tissues: Unremarkable. Lymph nodes: Unremarkable. No enlarged lymph nodes. Tubes, lines and devices: Catheter noted in the right anterior chest wall. Appears to terminate in the upper abdominal wall. IMPRESSION: Areas of consolidation and groundglass opacities bilaterally throughout the lungs. May represent infectious/inflammatory process including Covid 19.
[2020-10-30] MEDS: METOPROLOL TARTRATE 25 MG TAB PO SCH ×2 (06:58→18:03)
[2020-10-30] MEDS: SODIUM CHLORIDE 0.9% 1,000 ML IV SCH (06:58)
[2020-10-30] MEDS: DEXAMETHASONE SOD PHOSPHATE 10 MG/ML 1 ML VIAL IV SCH (08:34)
[2020-10-30] MEDS: SULFAMETHOX-TMP 800-160MG 1 EACH TAB PO SCH ×2 (08:35→20:16)
[2020-10-30] MEDS: FAMOTIDINE 20 MG TAB PO SCH ×2 (08:35→20:16)
[2020-10-30 09:46] LABS: Ferritin 648.4 ng/mL (10.0-291.0)
--- NOTE | 2020-10-30 16:36 | P.CNPUL ---
History of Present Illness Consult date: 10/30/20 Reason for consult: dyspnea, cough Chief complaint: Shortness of breath History of present illness: Patient came into the hospital with progressive shortness of breath cough patient is currently on nonrebreather mask symptoms started about 2 days ago with progressive malaise and myalgia, prior medical history significant for a spina bifid a as well as renal calculi has history of multiple UTIs, on arrival noted to have fever of 101, her oxygen saturation was just 75% however improved to 89-90% on nonrebreather mask, her inflammatory parameters were elevated including LDH C-reactive protein, chest x-ray showed bilateral interstitial opacities consistent with Coban 19 pneumonia, computed tomography scan negative for pulmonary embolism, however confirm the findings on the x-ray, currently patient is being treated with IV Decadron, Review of Systems All systems: negative Past Medical History Past Medical History: No Reported History Additional Past Medical History / Comment(s): spina bifida - uses w/c,wears briefs; kidney stones, "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 covid 11/08 History of Any Multi-Drug Resistant Organisms: MRSA Date of last positivie culture/infection: 12/05/18 MDRO Source:: Left Ankle Past Surgical History: Back Surgery, Bladder Surgery, Hernia Repair, Orthopedic Surgery Additional Past Surgical History / Comment(s): Multi orthopedic surgeries since childhood. 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 Past Anesthesia/Blood Transfusion Reactions: No Reported Reaction Past Psychological History: No Psychological Hx Reported Additional Psychological History / Comment(s): S Smoking Status: Never smoker Past Alcohol Use History: None Reported Past Drug Use History: None Reported - Past Family History Mother Family Medical History: Cancer Additional Family Medical History / Comment(s): grandparents - lung Father History Unknown: Yes Medications and Allergies Home Medications Medication Instructions Recorded Confirmed Type Metoprolol Tartrate [Lopressor] 25 mg PO BID@0600,1800 07/09/17 10/30/20 History Multivitamins, Thera [Multivitamin 1 tab PO HS@1800 09/12/17 10/30/20 History (formulary)] Ondansetron Odt [Zofran Odt] 4 mg PO Q8HR PRN #14 tab 10/24/20 10/30/20 Rx Sulfamethox-Tmp 800-160Mg [Bactrim 1 tab PO Q12HR 10/30/20 10/30/20 History Ds] Allergies Allergy/AdvReac Type Severity Reaction Status Date / Time latex AdvReac Fever from Verified 10/30/20 08:15 cath Physical Exam Vitals: Vital Signs Temp Pulse Pulse Resp BP BP Pulse Ox 10/30/20 14:00 96.9 F L 79 16 95/63 90 L 10/30/20 13:30 97.9 F 80 20 102/73 88 L 10/30/20 08:07 77 22 100/67 89 L 10/30/20 06:36 97.7 F 84 20 98/64 91 L 10/30/20 04:05 99 F 96 24 107/72 89 L 10/30/20 02:13 112 H 20 116/80 90 L 10/30/20 01:30 105 H 20 112/72 89 L 10/30/20 00:20 114 H 89 L 10/29/20 23:41 101.2 F H 139 H 26 H 109/60 75 L Intake and Output 10/30/20 10/30/20 10/30/20 06:59 14:59 22:59 Other: Weight 68.039 kg 68.039 kg - Constitutional General appearance: average body habitus, cooperative, disheveled - EENT Eyes: PERRLA Ears: bilateral: normal - Neck Carotids: bilateral: upstroke normal - Respiratory Respiratory: bilateral: diminished, wheezing - Cardiovascular Rhythm: regular Heart sounds: normal: S1, S2 - Gastrointestinal General gastrointestinal: distended, soft - Neurologic Neurologic: CNII-XII intact - Musculoskeletal Musculoskeletal: gait normal, generalized weakness, strength equal bilaterally - Psychiatric Psychiatric: A&O x's 3, appropriate affect, intact judgment & insight Results - Laboratory Findings CBC and BMP: 10/30/20 00:51 10/30/20 00:51 PT/INR, D-dimer PT 10.7 sec (9.0-12.0) 10/30/20 00:51 INR 1.0 (<1.2) 10/30/20 00:51 D-Dimer 1.29 mg/L FEU (<0.60) H 10/30/20 00:51 Abnormal lab findings: Abnormal Labs 10/30/20 10/30/20 10/30/20 00:51 00:51 00:51 Lymphocytes # 0.9 L D-Dimer 1.29 H Carbon Dioxide 19 L BUN 25 H Creatinine 1.08 H Glucose 101 H Magnesium 2.7 H Ferritin 648.4 H AST 92 H Lactate Dehydrogenase 3112 H C-Reactive Protein 81.5 H Procalcitonin 10/30/20 00:51 Lymphocytes # D-Dimer Carbon Dioxide BUN Creatinine Glucose Magnesium Ferritin AST Lactate Dehydrogenase C-Reactive Protein Procalcitonin 0.14 H - Diagnostic Findings Chest x-ray: report reviewed, image reviewed CT scan - chest: report reviewed, image reviewed (Finding as noted above) Assessment and Plan Assessment: Acute hypoxic respiratory failure Bilateral covid 19 pneumonia Sepsis Baseline condition of spina bifid a with recurrent chronic urinary tract infection Plan: Supplemental oxygen Deep breathing exercises incentive spirometry Prone positioning of possible IV steroids in the form of Decadron IV REMdesivi Lovenox Further plan of care as per clinical response of the patient Time with Patient: Greater than 30
[2020-10-30] MEDS ORDERED: ENOXAPARIN 40 MG/0.4 ML SYRINGE SQ SCH (16:45)
[2020-10-30] MEDS ORDERED: REMDESIVIR 200 MG in SODIUM CHLORIDE 0.9% 250 ML IVPB ONE (17:30)
[2020-10-30] MEDS: ONDANSETRON ODT 4 MG TAB PO PRN (17:34)
[2020-10-30] MEDS: MULTIVITAMINS, THERA 1 EACH TAB PO SCH (18:05)
[2020-10-30] MEDS ORDERED: BENZONATATE 100 MG CAP PO PRN (18:12)
--- NOTE | 2020-10-30 19:58 | P.HPIM ---
History of Present Illness H&P Date: 10/30/20 Chief Complaint: Shortness of breath History of present token: This is a pleasant [address] Edward. Chronic stable medical conditions include chronic spina bifida causing paraplegia, chronic neurogenic bladder causing recurrent frequent UTIs patient does self-catheterization, GERD, chronic left hydroureter and hydronephrosis. Patient gets about with a wheelcha ir. chronic paraplegia. This is a patient started of with respiratory symptoms she states around November 23. Had some cough. Some chills and fevers. She also was in the ER because of her UTI. She then tested positive for COVID 19. She was then in the ER with a temperature 100.3 and a heart rate of 140. Pulse ox was 94% on room air. She was given Bactrim for a UTI and discharge. Progressively arrest. He symptoms have been getting worse. Has been febrile. Tachycardic. Tachypneic. Cough short of breath. Had a pulse ox of 75% on room air on presentation last night. Placed on high flow oxygen. Started on IV Decadron. This morning short of breath. Started and IV Remdesivir. He was on high flow oxygen. Body aches. Febrile. Pulmonary consulted. Review of systems: GEN.: tired, fever EYES: None HEENT: None NECK: None RESPIRATORY: Short of breath cough CARDIOVASCULAR: None GASTROINTESTINAL: As above GENITOURINARY: As above MUSCULOSKELETAL: Contracted lower extremity. Body aches LYMPHATICS: None HEMATOLOGICAL: None PSYCHIATRY: None NEUROLOGICAL: Paraplegia Past medical history: Spina bifida causing chronic paraplegia, chronic neurogenic bladder-patient does self-catheterization, multiple UTIs, GERD, chronic left hydroureter and hydronephrosis, left hip dislocated Past surgical history: See electronic chart from this admission including SKEIN TIER shunt Social history: . Does not smoke or drink alcohol. Family history: Grandparents had history of lung cancer VITAL SIGNS: 101.2, 139, 26, 109/60, 75% room air upon presentation GENERAL: BMI 25.7, laying in bed, short of breath and his cannula EYES: Pupils equal. Conjunctiva normal. HEENT: External appearance of nose and ears normal, oral cavity dry. NECK: JVD not raised; masses not palpable. HEART: First and second heart sounds are normal; no edema. LUNGS: Respiratory rate increased, accessory muscles working, not able to speak in full sentences. ABDOMEN: Soft, no tenderness, no guarding or rigidity, liver spleen not palpable, no masses palpable, Liu catheter in place. LYMPHATICS: No lymph nodes palpable in the axilla and neck. PSYCH: Alert and oriented x3; mood and affect anxious NEUROLOGICAL: Cranial nerves grossly intact; no facial asymmetry, power and sensation decreased in lower extremity. Investigations: Reviewed in context of the clinical picture and assessment and plan WBC 7 hemoglobin 13 platelets 13.6 lymphocytes 0.9 d-dimer 1.29 potassium 4 bun 25 creatinine 1.08 CRP 81.5 pro-calcitonin 0.14 EKG tracing personally reviewed by me-normal sinus rhythm with some abnormal T waves Chest x-ray film personally reviewed by me-, portable/bilateral infiltrates with some consolidation Chest CTA: 80s of consolidation and groundglass opacities bilateral throughout Assessment and plan: -Acute severe bilateral COVID 19 pneumonitis, with symptoms starting about 8 days before presentation here Patient placed on IV Decadron, Pepcid, IV Remdesivir, vitamin C vitamin D. Love nox -Possible secondary bacterial infection/pneumonia Started on ceftriaxone Acute severe hypoxic respiratory failure due to COVID 19 pneumonitis Patient requiring high flow 15 L oxygen -Chronic spina bifida causing chronic paraplegia Follow clinically -Chronic neurogenic bladder requiring self-catheterization -Chronic medical debility patient is wheelchair bound. Prognosis guarded. Pulmonary consulted. 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 covid 11/08 History of Any Multi-Drug Resistant Organisms: MRSA Date of last positivie culture/infection: 12/05/18 MDRO Source:: Left Ankle Past Surgical History: Back Surgery, Bladder Surgery, Hernia Repair, Orthopedic Surgery Additional Past Surgical History / Comment(s): Multi orthopedic surgeries since childhood. SKEIN TIER shunt. Past Anesthesia/Blood Transfusion Reactions: No Reported Reaction Past Psychological History: No Psychological Hx Reported Smoking Status: Never smoker Past Alcohol Use History: None Reported Past Drug Use History: None Reported - Past Family History Mother Family Medical History: Cancer Additional Family Medical History / Comment(s): grandparents - lung Father History Unknown: Yes Medications and Allergies Home Medications Medication Instructions Recorded Confirmed Type Metoprolol Tartrate [Lopressor] 25 mg PO BID@0600,1800 07/09/17 10/30/20 History Multivitamins, Thera [Multivitamin 1 tab PO HS@1800 09/12/17 10/30/20 History (formulary)] Ondansetron Odt [Zofran Odt] 4 mg PO Q8HR PRN #14 tab 10/24/20 10/30/20 Rx Sulfamethox-Tmp 800-160Mg [Bactrim 1 tab PO Q12HR 10/30/20 10/30/20 History Ds] Allergies Allergy/AdvReac Type Severity Reaction Status Date / Time latex AdvReac Fever from Verified 10/30/20 08:15 cath Physical Exam Vitals: Vital Signs Temp Pulse Resp BP Pulse Ox 10/30/20 08:07 77 22 100/67 89 L 10/30/20 06:36 97.7 F 84 20 98/64 91 L 10/30/20 04:05 99 F 96 24 107/72 89 L 10/30/20 02:13 112 H 20 116/80 90 L 10/30/20 01:30 105 H 20 112/72 89 L 10/30/20 00:20 114 H 89 L 10/29/20 23:41 101.2 F H 139 H 26 H 109/60 75 L Intake and Output 10/29/20 10/30/20 10/30/20 22:59 06:59 14:59 Other: Weight 68.039 kg Results CBC & Chem 7: 10/30/20 00:51 10/30/20 00:51 Labs: Abnormal Lab Results - Last 24 Hours (Table) 10/30/20 10/30/20 10/30/20 Range/Units 00:51 00:51 00:51 Lymphocytes # 0.9 L (1.0-4.8) k/uL D-Dimer 1.29 H (<0.60) mg/L FEU Carbon Dioxide 19 L (22-30) mmol/L BUN 25 H (7-17) mg/dL Creatinine 1.08 H (0.52-1.04) mg/dL Glucose 101 H (74-99) mg/dL Magnesium 2.7 H (1.6-2.3) mg/dL Ferritin 648.4 H (10.0-291.0) ng/mL AST 92 H (14-36) U/L Lactate Dehydrogenase 3112 H (313-618) U/L C-Reactive Protein 81.5 H (<10.0) mg/L Procalcitonin (0.02-0.09) ng/mL 10/30/20 Range/Units 00:51 Lymphocytes # (1.0-4.8) k/uL D-Dimer (<0.60) mg/L FEU Carbon Dioxide (22-30) mmol/L BUN (7-17) mg/dL Creatinine (0.52-1.04) mg/dL Glucose (74-99) mg/dL Magnesium (1.6-2.3) mg/dL Ferritin (10.0-291.0) ng/mL AST (14-36) U/L Lactate Dehydrogenase (313-618) U/L C-Reactive Protein (<10.0) mg/L Procalcitonin 0.14 H (0.02-0.09) ng/mL
[2020-10-30] MEDS: ASCORBIC ACID 500 MG TAB PO SCH (20:16)
[2020-10-30] MEDS: CHOLECALCIFEROL 25 MCG (1000 IU) TABLET PO SCH (20:16)
[2020-10-30] MEDS: ZINC SULFATE 220 MG CAP PO SCH (20:16)
[2020-10-31] MEDS: SODIUM CHLORIDE 0.9% 1,000 ML IV SCH ×2 (03:07→23:53)
[2020-10-31] MEDS: METOPROLOL TARTRATE 25 MG TAB PO SCH ×2 (05:24→16:36)
[2020-10-31] MEDS: FAMOTIDINE 20 MG TAB PO SCH ×2 (07:53→20:25)
[2020-10-31] MEDS: CHOLECALCIFEROL 25 MCG (1000 IU) TABLET PO SCH (07:53)
[2020-10-31] MEDS: ASCORBIC ACID 500 MG TAB PO SCH (07:53)
[2020-10-31] MEDS: ZINC SULFATE 220 MG CAP PO SCH (07:53)
[2020-10-31] MEDS: SULFAMETHOX-TMP 800-160MG 1 EACH TAB PO SCH ×2 (07:53→20:25)
[2020-10-31] MEDS: DEXAMETHASONE SOD PHOSPHATE 10 MG/ML 1 ML VIAL IV SCH (07:53)
[2020-10-31] MEDS: ENOXAPARIN 40 MG/0.4 ML SYRINGE SQ SCH ×2 (07:54→20:25)
--- NOTE | 2020-10-31 11:49 | P.PN ---
Subjective Progress Note Date: 10/31/20 Principal diagnosis: Acute hypoxic respiratory failure Bilateral covid 19 pneumonia Sepsis Baseline condition of spina bifid a with recurrent chronic urinary tract infection 10/31/2020, patient seen eval examined during the rounds very short of breath on activity and exertion, address saturation is 87 to 90% on high flow oxygen with nonrebreather mask, denies any cough or sputum production patient has been instructed to prone as much as possible Patient came into the hospital with progressive shortness of breath cough patient is currently on nonrebreather mask symptoms started about 2 days ago with progressive malaise and myalgia, prior medical history significant for a spina bifid a as well as renal calculi has history of multiple UTIs, on arrival noted to have fever of 101, her oxygen saturation was just 75% however improved to 89-90% on nonrebreather mask, her inflammatory parameters were elevated including LDH C-reactive protein, chest x-ray showed bilateral interstitial opacities consistent with Coban 19 pneumonia, computed tomography scan negative for pulmonary embolism, however confirm the findings on the x-ray, currently patient is being treated with IV Decadron, Objective - Vital Signs Vital signs: Vital Signs Temp 98.1 F 10/31/20 10:00 Pulse 94 10/31/20 10:00 Resp 16 10/31/20 10:00 BP 97/66 10/31/20 10:00 Pulse Ox 87 L 10/31/20 10:00 Intake & Output 10/30/20 10/31/20 10/31/20 18:59 06:59 18:59 Intake Total 300 Output Total 600 Balance -600 300 Weight 68.039 kg Intake: IV 300 Remdesivir 100 mg In 250 Sodium Chloride 0.9% 250 ml @ 250 mls/hr IVPB Q24H [facility] Rx#:[id number] cefTRIAXone 1 gm In 50 Sodium Chloride 0.9% 50 ml @ 100 mls/hr IVPB Q24HR [facility] Rx#:[id number] Output: Urine 600 Other: Voiding Method Indwelling Catheter Indwelling Catheter # Voids 3 # Bowel Movements 1 - Exam - Constitutional General appearance: average body habitus, cooperative, disheveled - EENT Eyes: PERRLA Ears: bilateral: normal - Neck Carotids: bilateral: upstroke normal - Respiratory Respiratory: bilateral: diminished, wheezing - Cardiovascular Rhythm: regular Heart sounds: normal: S1, S2 - Gastrointestinal General gastrointestinal: distended, soft - Neurologic Neurologic: CNII-XII intact - Musculoskeletal Musculoskeletal: gait normal, generalized weakness, strength equal bilaterally - Psychiatric Psychiatric: A&O x's 3, appropriate affect, intact judgment & insight - Labs CBC & Chem 7: 10/30/20 00:51 10/30/20 00:51 Labs: Abnormal Lab Results - Last 24 Hours (Table) 10/31/20 10/31/20 Range/Units 05:26 05:26 D-Dimer 1.30 H (<0.60) mg/L FEU C-Reactive Protein 55.9 H (<10.0) mg/L Microbiology - Last 24 Hours (Table) 10/30/20 03:44 Blood Culture - Preliminary Blood No Growth after 24 hours 10/30/20 03:44 Blood Culture - Preliminary Blood No Growth after 24 hours Assessment and Plan Assessment: Acute hypoxic respiratory failure Bilateral covid 19 pneumonia Sepsis Baseline condition of spina bifid a with recurrent chronic urinary tract infection Plan: Supplemental oxygen Deep breathing exercises incentive spirometry Prone positioning of possible IV steroids in the form of Decadron IV REMdesivi Lovenox Further plan of care as per clinical response of the patient Time with Patient: Greater than 30
[2020-10-31] MEDS: MULTIVITAMINS, THERA 1 EACH TAB PO SCH (16:33)
[2020-10-31] MEDS: REMDESIVIR 100 MG in SODIUM CHLORIDE 0.9% 250 ML IVPB SCH (16:33)
--- NOTE | 2020-10-31 22:54 | P.PN ---
Progress Note - Text Progress Note Date: 10/31/20 Chief Complaint: Shortness of breath History of present token: This is a pleasant [address] Edward. Chronic stable medical conditions include chronic spina bifida causing paraplegia, chronic neurogenic bladder causing recurrent frequent UTIs patient does self-catheterization, GERD, chronic left hydroureter and hydronephrosis. Patient gets about with a wheelchair. chronic paraplegia. This is a patient started of with respiratory symptoms she states around November 23. Had some cough. Some chills and fevers. She also was in the ER because of her UTI. She then tested positive for COVID 19. She was then in the ER with a temperature 100.3 and a heart rate of 140. Pulse ox was 94% on room air. She was given Bactrim for a UTI and discharge. Progressively arrest. He symptoms have been getting worse. Has been febrile. Tachycardic. Tachypneic. Cough short of breath. Had a pulse ox of 75% on room air on presentation last night. Placed on high flow oxygen. Started on IV Decadron. IV Remdesivir. Today: Remains on high flow nasal cannula. With Ventimask. Tired, short of breath. Laying in bed Review of systems: Was done for constitutional, cardiovascular, GI, pulmonary. relevant finding as above Active Medications Acetaminophen (Acetaminophen Tab 325 Mg Tab) 650 mg PO Q6HR PRN PRN Reason: Mild Pain or Fever > 100.5 Ascorbic Acid (Ascorbic Acid 500 Mg Tab) 1,000 mg PO DAILY [facility] Last Admin: 10/31/20 07:53 Dose: 1,000 mg Documented by: Benzonatate (Benzonatate 100 Mg Cap) 100 mg PO TID PRN PRN Reason: Cough Last Admin: 10/30/20 18:15 Dose: 100 mg Documented by: Cholecalciferol (Cholecalciferol 25 Mcg (1000 Iu) Tablet) 100 mcg PO DAILY [facility] Last Admin: 10/31/20 07:53 Dose: 100 mcg Documented by: Dexamethasone Sodium Phosphate (Dexamethasone Sod Phosphate 10 Mg/Ml 1 Ml Vial) 6 mg IV DAILY [facility] Last Admin: 10/31/20 07:53 Dose: 6 mg Documented by: Enoxaparin Sodium (Enoxaparin 40 Mg/0.4 Ml Syringe) 40 mg SQ BID [facility] Last Admin: 10/31/20 20:25 Dose: 40 mg Documented by: Famotidine (Famotidine 20 Mg Tab) 20 mg PO BID [facility] Last Admin: 10/31/20 20:25 Dose: 20 mg Documented by: Sodium Chloride (Saline 0.9%) 1,000 mls @ 20 mls/hr IV .Q24H [facility] Last Admin: 10/31/20 03:07 Dose: Not Given Documented by: Ceftriaxone Sodium 1 gm/ (Sodium Chloride) 50 mls @ 100 mls/hr IVPB Q24HR [facility] Last Admin: 10/31/20 07:54 Dose: 100 mls/hr Documented by: Remdesivir 100 mg/ Sodium (Chloride) 250 mls @ 250 mls/hr IVPB Q24H [facility] Stop: 11/03/20 17:59 Last Admin: 10/31/20 16:33 Dose: 250 mls/hr Documented by: Metoprolol Tartrate (Metoprolol Tartrate 25 Mg Tab) 25 mg PO BID@0600,1800 [facility] Last Admin: 10/31/20 16:36 Dose: Not Given Documented by: Multivitamins (Multivitamins, Thera 1 Each Tab) 1 each PO HS@1800 [facility] Last Admin: 10/31/20 16:33 Dose: 1 each Documented by: Naloxone HCl (Naloxone 0.4 Mg/Ml 1 Ml Vial) 0.2 mg IV Q2M PRN PRN Reason: Opioid Reversal Ondansetron HCl (Ondansetron Odt 4 Mg Tab) 4 mg PO Q8HR PRN PRN Reason: Nausea Last Admin: 10/30/20 17:34 Dose: 4 mg Documented by: Senna/Docusate Sodium (Sennosides-Docusate Sodium 1 Each Tab) 1 each PO INIGUEZ [facility] Trimethoprim/Sulfamethoxazole (Sulfamethox-Tmp 800-160mg 1 Each Tab) 1 each PO Q12HR [facility] Last Admin: 10/31/20 20:25 Dose: 1 each Documented by: Zinc Sulfate (Zinc Sulfate 220 Mg Cap) 220 mg PO DAILY [facility] Last Admin: 10/31/20 07:53 Dose: 220 mg Documented by: Past medical history: Spina bifida causing chronic paraplegia, chronic neurogenic bladder-patient does self-catheterization, multiple UTIs, GERD, chronic left hydroureter and hydronephrosis, left hip dislocated Past surgical history: See electronic chart from this admission including 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 Does not smoke or drink alcohol. Family history: Grandparents had history of lung cancer VITAL SIGNS: 98.1, 94, 16, 97/66, 87% on 15 L high flow GENERAL: Laying in bed, short of breath awake LUNGS: Respiratory rate increased, accessory muscles working, not able to speak in full sentences. PSYCH: Alert and oriented x3; mood and affect anxious NEUROLOGICAL: Cranial nerves grossly intact; no facial asymmetry, moving all 4 limbs Rest of the exam per pulmonary and nursing Investigations: Reviewed in context of the clinical picture and assessment and plan October 31: D-dimer 1.3 CRP 55.9 WBC 7 hemoglobin 13 platelets 13.6 lymphocytes 0.9 d-dimer 1.29 potassium 4 bun 25 creatinine 1.08 CRP 81.5 pro-calcitonin 0.14 EKG tracing personally reviewed by me-normal sinus rhythm with some abnormal T waves Chest x-ray film personally reviewed by me-, portable/bilateral infiltrates with some consolidation Chest CTA: 80s of consolidation and groundglass opacities bilateral throughout Assessment and plan: -Acute severe bilateral COVID 19 pneumonitis, with symptoms starting about 8 days before presentation here-not improving Patient placed on IV Decadron, Pepcid, IV Remdesivir, vitamin C vitamin D. Lovenox -Possible secondary bacterial infection/pneumonia on ceftriaxone Acute severe hypoxic respiratory failure due to COVID 19 pneumonitis-not improving Patient requiring high flow 15 L oxygen -Chronic spina bifida causing chronic paraplegia Follow clinically -Chronic neurogenic bladder requiring self-catheterization -Chronic medical debility patient is wheelchair bound. Discussed with the patient. Continue current medication. Follow with pulmonary
[2020-11-01] MEDS: METOPROLOL TARTRATE 25 MG TAB PO SCH ×2 (05:56→16:49)
[2020-11-01] MEDS: CHOLECALCIFEROL 25 MCG (1000 IU) TABLET PO SCH (07:19)
[2020-11-01] MEDS: ALPRAZolam 0.25 MG TAB PO PRN ×3 (07:19→21:03)
[2020-11-01] MEDS: ASCORBIC ACID 500 MG TAB PO SCH (07:19)
[2020-11-01] MEDS: SULFAMETHOX-TMP 800-160MG 1 EACH TAB PO SCH ×2 (07:19→19:24)
[2020-11-01] MEDS: DEXAMETHASONE SOD PHOSPHATE 10 MG/ML 1 ML VIAL IV SCH ×2 (07:19→19:24)
[2020-11-01] MEDS: FAMOTIDINE 20 MG TAB PO SCH ×2 (07:19→19:24)
[2020-11-01] MEDS: ENOXAPARIN 40 MG/0.4 ML SYRINGE SQ SCH ×2 (07:20→19:23)
[2020-11-01] MEDS: ZINC SULFATE 220 MG CAP PO SCH (07:20)
--- NOTE | 2020-11-01 11:28 | P.PN ---
Subjective Progress Note Date: 11/01/20 Principal diagnosis: Acute hypoxic respiratory failure Bilateral covid 19 pneumonia Sepsis Baseline condition of spina bifid a with recurrent chronic urinary tract infection 11/01/2020, patient seen eval examined during the rounds labs reviewed medications reviewed care plan discussed, oxygen saturation continue to drop down in last 12-48 hours has been on high flow oxygen and mask, desaturate up to 70-80%, has been placed on BiPAP 04/05 with that oxygen saturation improved to 85%, we will consult infectious disease for trial of Actemra given that patient most likely having cytokine ana luisa 10/31/2020, patient seen eval examined during the rounds very short of breath on activity and exertion, address saturation is 87 to 90% on high flow oxygen with nonrebreather mask, denies any cough or sputum production patient has been instructed to prone as much as possible Patient came into the hospital with progressive shortness of breath cough patient is currently on nonrebreather mask symptoms started about 2 days ago with progressive malaise and myalgia, prior medical history significant for a spina bifid a as well as renal calculi has history of multiple UTIs, on arrival noted to have fever of 101, her oxygen saturation was just 75% however improved to 89-90% on nonrebreather mask, her inflammatory parameters were elevated including LDH C-reactive protein, chest x-ray showed bilateral interstitial opacities consistent with Coban 19 pneumonia, computed tomography scan negative for pulmonary embolism, however confirm the findings on the x-ray, currently patient is being treated with IV Decadron, Objective - Vital Signs Vital signs: Vital Signs Temp 98.8 F 11/01/20 09:40 Pulse 85 11/01/20 09:40 Resp 29 H 11/01/20 09:40 BP 102/68 11/01/20 09:40 Pulse Ox 85 L 11/01/20 09:55 Intake & Output 10/31/20 11/01/20 11/01/20 18:59 06:59 18:59 Intake Total 300 680 300 Output Total 800 Balance 300 680 -500 Intake: IV 300 300 Remdesivir 100 mg In 250 250 Sodium Chloride 0.9% 250 ml @ 250 mls/hr IVPB Q24H [facility] Rx#:[id number] cefTRIAXone 1 gm In 50 50 Sodium Chloride 0.9% 50 ml @ 100 mls/hr IVPB Q24HR [facility] Rx#:[id number] Intake, IV Titration 280 Amount Sodium Chloride 0.9% 1, 280 000 ml @ 20 mls/hr IV . Q24H [facility] Rx#:[id number] Oral 400 Output: Urine 800 Other: Voiding Method Indwelling Catheter Indwelling Catheter Indwelling Catheter - Exam - Constitutional General appearance: average body habitus, cooperative, disheveled - EENT Eyes: PERRLA Ears: bilateral: normal - Neck Carotids: bilateral: upstroke normal - Respiratory Respiratory: bilateral: diminished, wheezing - Cardiovascular Rhythm: regular Heart sounds: normal: S1, S2 - Gastrointestinal General gastrointestinal: distended, soft - Neurologic Neurologic: CNII-XII intact - Musculoskeletal Musculoskeletal: gait normal, generalized weakness, strength equal bilaterally - Psychiatric Psychiatric: A&O x's 3, appropriate affect, intact judgment & insight - Labs CBC & Chem 7: 10/30/20 00:51 10/30/20 00:51 Labs: Abnormal Lab Results - Last 24 Hours (Table) 11/01/20 11/01/20 11/01/20 Range/Units 06:47 06:47 06:47 D-Dimer 0.99 H (<0.60) mg/L FEU Lactate Dehydrogenase 2715 H (313-618) U/L C-Reactive Protein 28.4 H (<10.0) mg/L Microbiology - Last 24 Hours (Table) 10/30/20 03:44 Blood Culture - Preliminary Blood No Growth after 48 hours 10/30/20 03:44 Blood Culture - Preliminary Blood No Growth after 48 hours Assessment and Plan Assessment: Acute hypoxic respiratory failure Likely developing cytokine ana luisa Bilateral covid 19 pneumonia Sepsis Baseline condition of spina bifid a with recurrent chronic urinary tract infection Plan: Supplemental oxygen with BiPAP Deep breathing exercises incentive spirometry Prone positioning of possible IV steroids in the form of Decadron IV REMdesivi Lovenox Repeat chest x-ray Actemra Consult infectious disease Further plan of care as per clinical response of the patient Time with Patient: Greater than 30
[2020-11-01] MEDS: ACETAMINOPHEN TAB 325 MG TAB PO PRN (12:21)
--- NOTE | 2020-11-01 14:36 | XR ---
EXAMINATION TYPE: XR chest 1V portable DATE OF EXAM: 11/01/2020 COMPARISON: Chest x-ray dated 10/29/2020 HISTORY: Hypoxia TECHNIQUE: Single frontal view of the chest is obtained. FINDINGS: Findings are similar to prior exam, there is bilateral airspace disease. There is a scolio tic curvature noted, ventriculoperitoneal shunt tubing again noted. Heart is obscured. No evident pne umothorax. Lung volumes are low. No sizable effusion evident. There are overlying artifacts. IMPRESSION: Correlate for pneumonia.
--- NOTE | 2020-11-01 15:44 | CDI ---
Documentation Clarification Form Date: 11/01/2020 03:00:55 PM From: Kristen Gonzales RN, CCDS Admit Date: 10/30/2020 03:02:00 AM Patient Name: Jolynn Gonzales Visit Number: [id number] Discharge Date: ATTENTION: The Clinical Documentation Specialists (CDI) and [facility] Coding Staff appreciate your assistance in clarifying documentation. Please respond to the clarification below the line at the bottom and electronically sign. The CDI & [facility] Coding staff will review the response and follow-up if needed. Please note: Queries are made part of the Legal Health Record. If you have any questions, please contact the author of this message via ITS. Dr. Forrest Ames Sepsis is documented in the pulmonary consult and subsequent progress notes. Please render your opinion on the sepsis diagnosis if ruled in or out. History/Risk Factors: Spinal bifida, Clinical Indicators: 30-year-old female present to ED on 10/29/20, after testing positive for COVID-19. She reports fever, chill, weakness. Respiratory exam in ED notes cough, dyspnea 10/30 WBC: 7.0, BUN 25, Creatinine 1.08 10/29 Vital signs: 109/60 139 26 101.2 75 % RA; 89 % on 15 L Non-Rebreather 10/30 Lactic acid: 1.0 10/29 EKG sinus rhythm, rate tachycardia 114 bpm 10/30 Blood cultures: Pending (no growth after 48 hrs.) Treatment: Rocephin 1 GM IVPB Q 24 HRS Decadron 5 MG IV BID .9NS 1,000 ML Bolus Remdesivir 100MG IVPB Q 24 HRS X4 BAGS Monitor 2 Sat's (Titrate) In your professional opinion, please clarify if these findings signify one of the following conditions: [ ] Sepsis POA [ ] Sepsis ruled out [ ] SIRS, without Sepsis [ ] Other, please specify [ ] Unable to determine SIRS Criteria: 2 or more of the following may indicate SIRS -Temperature < 96.8F (36C) or > 101.0F (38.3C) -Heart Rate > 90 bpm -Respiratory Rate > 20 breaths/min or PaCO2 < 32 mmHg -White Blood Cell Count > 12,000 or < 4,000 cells/mm3 or > 10% bands Sepsis from: 19, POA (Template Last Reviewed: August 2020) MTDD
[2020-11-01] MEDS ORDERED: TOCILIZUMAB 560 MG in SODIUM CHLORIDE 0.9% 72 ML IV ONE (16:15)
[2020-11-01] MEDS: REMDESIVIR 100 MG in SODIUM CHLORIDE 0.9% 250 ML IVPB SCH (17:04)
[2020-11-01] MEDS: MULTIVITAMINS, THERA 1 EACH TAB PO SCH (17:05)
[2020-11-01] MEDS: ONDANSETRON ODT 4 MG TAB PO PRN (19:23)
--- NOTE | 2020-11-01 21:12 | P.PN ---
Progress Note - Text Progress Note Date: 11/01/20 Chief Complaint: Shortness of breath History of present token: This is a pleasant [address] Edward. Chronic stable medical conditions include chronic spina bifida causing paraplegia, chronic neurogenic bladder causing recurrent frequent UTIs patient does self-catheterization, GERD, chronic left hydroureter and hydronephrosis. Patient gets about with a wheelchair. chronic paraplegia. This is a patient started of with respiratory symptoms she states around November 23. Had some cough. Some chills and fevers. She also was in the ER because of her UTI. She then tested positive for COVID 19. She was then in the ER with a temperature 100.3 and a heart rate of 140. Pulse ox was 94% on room air. She was given Bactrim for a UTI and discharge. Progressively arrest. He symptoms have been getting worse. Has been febrile. Tachycardic. Tachypneic. Cough short of breath. Had a pulse ox of 75% on room air on presentation last night. Placed on high flow oxygen. Started on IV Decadron. IV Remdesivir. Patient was requiring high flow nasal cannula. Today: Patient is swished over to BiPAP. Patient's oral color is better. A bit more restful. 8 better for lunch. Review of systems: Was done for constitutional, cardiovascular, GI, pulmonary. relevant finding as above Active Medications Acetaminophen (Acetaminophen Tab 325 Mg Tab) 650 mg PO Q6HR PRN PRN Reason: Mild Pain or Fever > 100.5 Last Admin: 11/01/20 12:21 Dose: 650 mg Documented by: Alprazolam (Alprazolam 0.25 Mg Tab) 0.25 mg PO TID PRN PRN Reason: Anxiety Last Admin: 11/01/20 21:03 Dose: 0.25 mg Documented by: Ascorbic Acid (Ascorbic Acid 500 Mg Tab) 1,000 mg PO DAILY [facility] Last Admin: 11/01/20 07:19 Dose: 1,000 mg Documented by: Benzonatate (Benzonatate 100 Mg Cap) 100 mg PO TID PRN PRN Reason: Cough Last Admin: 10/30/20 18:15 Dose: 100 mg Documented by: Cholecalciferol (Cholecalciferol 25 Mcg (1000 Iu) Tablet) 100 mcg PO DAILY [facility] Last Admin: 11/01/20 07:19 Dose: 100 mcg Documented by: Dexamethasone Sodium Phosphate (Dexamethasone Sod Phosphate 10 Mg/Ml 1 Ml Vial) 6 mg IV BID [facility] Last Admin: 11/01/20 19:24 Dose: 6 mg Documented by: Enoxaparin Sodium (Enoxaparin 40 Mg/0.4 Ml Syringe) 40 mg SQ BID [facility] Last Admin: 11/01/20 19:23 Dose: 40 mg Documented by: Famotidine (Famotidine 20 Mg Tab) 20 mg PO BID [facility] Last Admin: 11/01/20 19:24 Dose: 20 mg Documented by: Sodium Chloride (Saline 0.9%) 1,000 mls @ 20 mls/hr IV .Q24H [facility] Last Admin: 10/31/20 23:53 Dose: Not Given Documented by: Ceftriaxone Sodium 1 gm/ (Sodium Chloride) 50 mls @ 100 mls/hr IVPB Q24HR [facility] Last Admin: 11/01/20 07:20 Dose: 100 mls/hr Documented by: Remdesivir 100 mg/ Sodium (Chloride) 250 mls @ 250 mls/hr IVPB Q24H [facility] Stop: 11/03/20 17:59 Last Admin: 11/01/20 17:04 Dose: 250 mls/hr Documented by: Metoprolol Tartrate (Metoprolol Tartrate 25 Mg Tab) 25 mg PO BID@0600,1800 [facility] Last Admin: 11/01/20 16:49 Dose: Not Given Documented by: Multivitamins (Multivitamins, Thera 1 Each Tab) 1 each PO HS@1800 [facility] Last Admin: 11/01/20 17:05 Dose: Not Given Documented by: Naloxone HCl (Naloxone 0.4 Mg/Ml 1 Ml Vial) 0.2 mg IV Q2M PRN PRN Reason: Opioid Reversal Ondansetron HCl (Ondansetron Odt 4 Mg Tab) 4 mg PO Q8HR PRN PRN Reason: Nausea Last Admin: 11/01/20 19:23 Dose: 4 mg Documented by: Senna/Docusate Sodium (Sennosides-Docusate Sodium 1 Each Tab) 1 each PO INIGUEZ [facility] Trimethoprim/Sulfamethoxazole (Sulfamethox-Tmp 800-160mg 1 Each Tab) 1 each PO Q12HR [facility] Last Admin: 11/01/20 19:24 Dose: 1 each Documented by: Zinc Sulfate (Zinc Sulfate 220 Mg Cap) 220 mg PO DAILY [facility] Last Admin: 11/01/20 07:20 Dose: 220 mg Documented by: Past medical history: Spina bifida causing chronic paraplegia, chronic neurogenic bladder-patient does self-catheterization, multiple UTIs, GERD, chronic left hydroureter and hydronephrosis, left hip dislocated Past surgical history: See electronic chart from this admission 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 Does not smoke or drink alcohol. Family history: Grandparents had history of lung cancer VITAL SIGNS: GENERAL: Laying in bed, short of breath awake LUNGS: Respiratory rate increased, accessory muscles working, not able to speak in full sentences. PSYCH: Alert and oriented x3; mood and affect anxious NEUROLOGICAL: Cranial nerves grossly intact; no facial asymmetry, moving all 4 limbs Rest of the exam per pulmonary and nursing Investigations: Reviewed in context of the clinical picture and assessment and plan October 31: D-dimer 1.3 CRP 55.9 WBC 7 hemoglobin 13 platelets 13.6 lymphocytes 0.9 d-dimer 1.29 potassium 4 bun 25 creatinine 1.08 CRP 81.5 pro-calcitonin 0.14 EKG tracing personally reviewed by me-normal sinus rhythm with some abnormal T waves Chest x-ray film personally reviewed by me-, portable/bilateral infiltrates with some consolidation Chest CTA: 80s of consolidation and groundglass opacities bilateral throughout Assessment and plan: -Acute severe bilateral COVID 19 pneumonitis, with symptoms starting about 8 days before presentation here-not improving Patient placed on IV Decadron, Pepcid, IV Remdesivir, vitamin C vitamin D. Lovenox -Possible secondary bacterial infection/pneumonia on ceftriaxone Acute severe hypoxic respiratory failure due to COVID 19 pneumonitis-not improving requiring high flow 15 L oxygen-swished over to BiPAP today -Chronic spina bifida causing chronic paraplegia Follow clinically -Chronic neurogenic bladder requiring self-catheterization -Chronic medical debility patient is wheelchair bound. Discussed with the patient. Continue current medication. Follow with pulmonary
--- NOTE | 2020-11-01 23:32 | CONS ---
CONSULTATION DATE OF SERVICE: 11/01/2020 REASON FOR CONSULTATION: COVID-19 infection. HISTORY OF PRESENT ILLNESS: The patient is a 30-year-old female with a past medical history significant for spina bifida, history of recurrent UTI in this patient who presented to the ER at [facility] on 10/30/2020 for evaluation of increasing shortness of breath that had been progressively getting worse for the last few days before presentation to the hospital. The patient denies having any chest pain. The patient did have a cough, moderate in intensity, mostly dry in nature. The patient did have some nausea and decreased oral intake, but no vomiting. No abdominal pain. Did have some diarrhea. With these symptoms, the patient was evaluated by the ER physician. On arrival in the ER the patient did have a fever of 101.2 degrees Fahrenheit. The patient was mildly tachycardic and hypoxic with saturations of 75% on presentation. The patient was started initially on nasal cannula oxygen. However, the patient did have progressive worsening of her respiratory status and now is requiring a non-rebreather, BiPAP, with concern for underlying cytokine storm. I was asked to see the patient regarding further management. The patient is already being treated with dexamethasone, Lovenox and remdesivir; today is day number 3 out of 4. The patient did have a chest x- ray followed by CT angiogram of the chest showing areas of consolidation, ground-glass opacities bilaterally throughout the lungs. The patient did have a normal white count, lymphopenia. D-dimer elevated at 1.29, though trending down. Creatinine was mildly elevated at 1.08. Procalcitonin 0.14. REVIEW OF SYSTEMS: Positive points have been mentioned in the HPI. Rest of the systems are negative. PAST MEDICAL HISTORY: Spina bifida, history of renal stone, recurrent UTI, left ankle infection. PAST SURGICAL HISTORY: Back surgery, bladder surgery, hernia repair. SOCIAL HISTORY: No history of smoking, drinking or drug use. FAMILY HISTORY: Mother with history of lung cancer. ALLERGIES: LATEX. MEDICATIONS: The patient is currently on Tylenol, Xanax, vitamin C, Tessalon Perles, vitamin D3, dexamethasone, Lovenox, Pepcid, Lopressor, Theragran, Narcan, Zofran, remdesivir, Senokot, . PHYSICAL EXAMINATION: Blood pressure 100/73 with a pulse of 91, temperature 98.2. She is 95% on BiPAP. General description is a middle-aged female lying in bed in no distress. HEENT: Examination shows no pallor or scleral icterus. Oral mucous membrane is dry. NECK: Trachea is central. No thyromegaly. LUNGS: Unlabored breathing. Coarse breath sounds bilaterally. No wheeze. HEART: S1, S2. Regular rate and rhythm. ABDOMEN: Soft. No tenderness. No guarding or rigidity. EXTREMITIES: No edema of the feet. SKIN EXAMINATION: No rash or mass palpable. Neurologically the patient is awake, alert, oriented x3. Mood and affect normal. LABS: BUN of 25, creatinine 1.08. AST 92, LDH 3112. CRP 81.5. DIAGNOSTIC IMPRESSION AND PLAN: Patient admitted to hospital with a fever, hypoxemia. This patient did have evidence of multifocal infiltrate suggestive of COVID-19 pneumonia. The patient has not responded to initial treatment of steroids, Lovenox and the remdesivir. There is concern for possible cytokine storm with elevated LDH. PLAN: 1. Patient will be given a dose of Actemra mg/kg. This was discussed with the pharmacy and being dispensed. 2. Patient to continue with dexamethasone, Lovenox, zinc and ascorbic acid. 3. Droplet isolation and respiratory support. 4. Will follow clinical condition and further adjust medication if needed. Thank you for this consultation. Will follow this patient along with you. MMCELSAL / CARLIEN: [id number] /
[2020-11-02] MEDS: SODIUM CHLORIDE 0.9% 1,000 ML IV SCH (00:07)
[2020-11-02] MEDS: METOPROLOL TARTRATE 25 MG TAB PO SCH ×2 (05:56→17:33)
[2020-11-02] MEDS: ALPRAZolam 0.25 MG TAB PO PRN ×2 (05:56→17:33)
[2020-11-02] MEDS: ZINC SULFATE 220 MG CAP PO SCH (07:29)
[2020-11-02] MEDS: ENOXAPARIN 40 MG/0.4 ML SYRINGE SQ SCH ×2 (07:29→21:46)
[2020-11-02] MEDS: SULFAMETHOX-TMP 800-160MG 1 EACH TAB PO SCH ×2 (07:29→21:46)
[2020-11-02] MEDS: CHOLECALCIFEROL 25 MCG (1000 IU) TABLET PO SCH (07:29)
[2020-11-02] MEDS: FAMOTIDINE 20 MG TAB PO SCH ×2 (07:29→21:46)
[2020-11-02] MEDS: DEXAMETHASONE SOD PHOSPHATE 10 MG/ML 1 ML VIAL IV SCH ×2 (07:29→21:46)
[2020-11-02] MEDS: ASCORBIC ACID 500 MG TAB PO SCH (07:29)
--- NOTE | 2020-11-02 14:45 | CDI ---
Documentation Clarification Form Date: 11/02/2020 01:53:44 PM From: Kristen Gonzales RN, CCDS Admit Date: 10/30/2020 03:02:00 AM Patient Name: Jolynn Gonzales Visit Number: [id number] Discharge Date: ATTENTION: The Clinical Documentation Specialists (CDI) and [facility] Coding Staff appreciate your assistance in clarifying documentation. Please respond to the clarification below the line at the bottom and electronically sign. The CDI & [facility] Coding staff will review the response and follow-up if needed. Please note: Queries are made part of the Legal Health Record. If you have any questions, please contact the author of this message via ITS. Dr. Marilynn Russell Cytokine storm syndrome (CRS) is documented 11/01. Additional clarification regarding the stage of CRS is requested. History/Risk Factors: Spina bifida, UTI, Covid-19 infection Clinical Indicators: 30-year-old female present to ED on 10/30 with complaints of cough, shortness of breath progressively getting worse and fever. She had progressive worsening of her respiratory status requiring a non-rebreather, BiPAP. ON 11/01 ID consult: concern for underlying cytokine storm. 11/01 @ 17:46 Vital signs: 106/61 91 30 98.7 90 % BIPAP 10/30 Labs: WBC 7.0, D-Dimer 1.29, Lactic acid 1.0, Ferritin 648.4 KDH 3112, C- reactive protein 81.5 11/01 Labs: LDH 2511, 2715 Treatment: Telemetry monitoring Rocephin 1GM IVPB Q Daily Dexamethasone 6 MG IV BID Lovenox 4MG SQ BID Remdesivir 100 MG IVPB Q 24 HRS (11/01 day 3 out of 4) Tocilizumab 560 MG IV X1 Zinc Sulfate 220MG PO Daily Droplet isolation Monitor O2 Sat's (titrate per pulmonary) Please clarify the Grade of the Cytokine storm Syndrome (CRS): [ ] Grade 1 CRS includes low grade fever with or without constitutional symptoms (e.g., nausea, headache and myalgia). [ ] Grade 2 CRS is a moderate reaction that includes fever with hypotension not requiring vasopressors and/or hypoxia requiring the use of oxygen delivered by low-flow nasal cannula (=6 L/minute) or blow-by. [ ] Grade 3 CRS includes fever with hypotension requiring one vasopressor with or without vasopressin and/or hypoxia requiring high-flow nasal cannula (>6 L/minute), facemask, nonrebreather mask, or venti mask not attributable to any other cause. [ ] Grade 4 CRS includes fever with hypotension requiring multiple vasopressors (excluding vasopressin) and/or hypoxia requiring positive pressure (e.g., CPAP, bilevel positive airway pressure, intubation, mechanical ventilation) not attributable to any other cause. [ ] Grade 5 CRS is defined as due to CRS. [ ] Other, please specify [ ] Unable to determine [ ] Cytokine storm syndrome Ruled out (Template Last Revised: September 2020) ____Grade 1 CRS MTDD
--- NOTE | 2020-11-02 15:18 | P.PN ---
Subjective Progress Note Date: 11/02/20 Principal diagnosis: Acute hypoxic respiratory failure Bilateral covid 19 pneumonia Sepsis Baseline condition of spina bifid a with recurrent chronic urinary tract infection 11/02/2020, patient seen eval reexamined during the rounds labs reviewed medications reviewed care plan discussed, denies any chest pain shortness of breath is present denies any cough or sputum production, due to constant desaturation and low oxygenation patient has been moved from fourth floor to thi rd floor on a telemetry bed, patient has been placed on BiPAP, BiPAP setting is 15/10 with 100% oxygen, feels slightly less short of breath on that setting able to tolerate BiPAP fairly well hemodynamic status stable saturations 90%, 11/01/2020, patient seen eval examined during the rounds labs reviewed medications reviewed care plan discussed, oxygen saturation continue to drop down in last 12-48 hours has been on high flow oxygen and mask, desaturate up to 70-80%, has been placed on BiPAP 15/10 with that oxygen saturation improved to 85%, we will consult infectious disease for trial of Actemra given that patient most likely having cytokine ana luisa 10/31/2020, patient seen eval examined during the rounds very short of breath on activity and exertion, address saturation is 87 to 90% on high flow oxygen with nonrebreather mask, denies any cough or sputum production patient has been instructed to prone as much as possible Patient came into the hospital with progressive shortness of breath cough patient is currently on nonrebreather mask symptoms started about 2 days ago with progressive malaise and myalgia, prior medical history significant for a spina bifid a as well as renal calculi has history of multiple UTIs, on arrival noted to have fever of 101, her oxygen saturation was just 75% however improved to 89-90% on nonrebreather mask, her inflammatory parameters were elevated i ncluding LDH C-reactive protein, chest x-ray showed bilateral interstitial opacities consistent with Coban 19 pneumonia, computed tomography scan negative for pulmonary embolism, however confirm the findings on the x-ray, currently patient is being treated with IV Decadron, Objective - Vital Signs Vital signs: Vital Signs Temp 98.5 F 11/02/20 09:30 Pulse 74 11/02/20 11:30 Resp 26 H 11/02/20 11:30 BP 110/84 11/02/20 11:30 Pulse Ox 90 L 11/02/20 11:30 Intake & Output 11/01/20 11/02/20 11/02/20 18:59 06:59 18:59 Intake Total 300 400 Output Total 1600 1300 Balance -1300 -900 Intake: IV 300 Remdesivir 100 mg In 250 Sodium Chloride 0.9% 250 ml @ 250 mls/hr IVPB Q24H [facility] Rx#:[id number] cefTRIAXone 1 gm In 50 Sodium Chloride 0.9% 50 ml @ 100 mls/hr IVPB Q24HR [facility] Rx#:[id number] Oral 400 Output: Urine 1600 1300 Other: Voiding Method Indwelling Catheter Indwelling Catheter Indwelling Catheter # Voids 1 - Exam - Constitutional General appearance: average body habitus, cooperative, disheveled - EENT Eyes: PERRLA Ears: bilateral: normal - Neck Carotids: bilateral: upstroke normal - Respiratory Respiratory: bilateral: diminished, wheezing - Cardiovascular Rhythm: regular Heart sounds: normal: S1, S2 - Gastrointestinal General gastrointestinal: distended, soft - Neurologic Neurologic: CNII-XII intact - Musculoskeletal Musculoskeletal: gait normal, generalized weakness, strength equal bilaterally - Psychiatric Psychiatric: A&O x's 3, appropriate affect, intact judgment & insight - Labs CBC & Chem 7: 10/30/20 00:51 10/30/20 00:51 Labs: Abnormal Lab Results - Last 24 Hours (Table) 11/01/20 11/02/20 11/02/20 Range/Units 00:03 08:36 10:08 D-Dimer 1.30 H (<0.60) mg/L FEU Lactate Dehydrogenase 2511 H (313-618) U/L C-Reactive Protein 24.5 H (<10.0) mg/L Microbiology - Last 24 Hours (Table) 10/30/20 03:44 Blood Culture - Preliminary Blood No Growth after 72 hours 10/30/20 03:44 Blood Culture - Preliminary Blood No Growth after 72 hours Assessment and Plan Assessment: Acute hypoxic respiratory failure Likely developing cytokine ana luisa Bilateral covid 19 pneumonia Sepsis Baseline condition of spina bifid a with recurrent chronic urinary tract infection Plan: Supplemental oxygen with BiPAP Deep breathing exercises incentive spirometry Prone positioning of possible IV steroids in the form of Decadron IV REMdesivi Lovenox Repeat chest x-ray Status post Actemra Consult infectious disease Further plan of care as per clinical response of the patient Time with Patient: Greater than 30
[2020-11-02] MEDS: MULTIVITAMINS, THERA 1 EACH TAB PO SCH (17:33)
[2020-11-02] MEDS: REMDESIVIR 100 MG in SODIUM CHLORIDE 0.9% 250 ML IVPB SCH (17:33)
--- NOTE | 2020-11-02 17:59 | PN ---
PROGRESS NOTE DATE OF SERVICE: 11/02/2020 REASON FOR FOLLOWUP: COVID-19 pneumonia. INTERVAL HISTORY: The remains afebrile. The patient remains on BiPAP; however, when asked specifically, she is breathing more comfortably, able to take a deep breath. No chest pain. Cough but no worsening. No vomiting or diarrhea. PHYSICAL EXAMINATION: Blood pressure 107/75, pulse of 63, temperature 98.2. She is 94% on BiPAP. General description is a middle-aged female lying in bed in no distress. RESPIRATORY SYSTEM: Unlabored breathing. Clear to auscultation anteriorly. HEART: S1, S2. Regular rate and rhythm. ABDOMEN: Soft. No tenderness. LABS: CRP down to 24.5. D-dimer mildly elevated at 1.30. DIAGNOSTIC IMPRESSION AND PLAN: Patient with acute COVID-19 pneumonia with concern for cytokine storm, and this patient did receive a dose of Actemra. Patient is currently covered with dexamethasone, Lovenox, zinc and ascorbic acid; to continue along with respiratory support and monitor clinical course closely. MMODL / IJN: [id number] /
--- NOTE | 2020-11-02 21:42 | P.PN ---
Progress Note - Text Progress Note Date: 11/02/20 Chief Complaint: Shortness of breath History of present token: This is a pleasant [address] Edward. Chronic stable medical conditions include chronic spina bifida causing paraplegia, chronic neurogenic bladder causing recurrent frequent UTIs patient does self-catheterization, GERD, chronic left hydroureter and hydronephrosis. Patient gets about with a wheelchair. chronic paraplegia. This is a patient started of with respiratory symptoms she states around November 23. Had some cough. Some chills and fevers. She also was in the ER because of her UTI. She then tested positive for COVID 19. She was then in the ER with a temperature 100.3 and a heart rate of 140. Pulse ox was 94% on room air. She was given Bactrim for a UTI and discharge. Progressively arrest. He symptoms have been getting worse. Has been febrile. Tachycardic. Tachypneic. Cough short of breath. Had a pulse ox of 75% on room air on presentation last night. Placed on high flow oxygen. Started on IV Decadron. IV Remdesivir. Patient was requiring high flow nasal cannula. Patient swished and to BiPAP. Today: Remains on BiPAP. Short of breath. Awake. Following commands. Tired. Oral intake limited Review of systems: Attempted for constitutional, cardiovascular, GI, pulmonary. relevant finding as above Active Medications Acetaminophen (Acetaminophen Tab 325 Mg Tab) 650 mg PO Q6HR PRN PRN Reason: Mild Pain or Fever > 100.5 Last Admin: 11/01/20 12:21 Dose: 650 mg Documented by: Alprazolam (Alprazolam 0.25 Mg Tab) 0.25 mg PO TID PRN PRN Reason: Anxiety Last Admin: 11/02/20 17:33 Dose: 0.25 mg Documented by: Ascorbic Acid (Ascorbic Acid 500 Mg Tab) 1,000 mg PO DAILY GAVIN Last Admin: 11/02/20 07:29 Dose: 1,000 mg Documented by: Benzonatate (Benzonatate 100 Mg Cap) 100 mg PO TID PRN PRN Reason: Cough Last Admin: 10/30/20 18:15 Dose: 100 mg Documented by: Cholecalciferol (Cholecalciferol 25 Mcg (1000 Iu) Tablet) 100 mcg PO DAILY [facility] Last Admin: 11/02/20 07:29 Dose: 100 mcg Documented by: Dexamethasone Sodium Phosphate (Dexamethasone Sod Phosphate 10 Mg/Ml 1 Ml Vial) 6 mg IV BID [facility] Last Admin: 11/02/20 07:29 Dose: 6 mg Documented by: Enoxaparin Sodium (Enoxaparin 40 Mg/0.4 Ml Syringe) 40 mg SQ BID [facility] Last Admin: 11/02/20 07:29 Dose: 40 mg Documented by: Famotidine (Famotidine 20 Mg Tab) 20 mg PO BID [facility] Last Admin: 11/02/20 07:29 Dose: 20 mg Documented by: Sodium Chloride (Saline 0.9%) 1,000 mls @ 20 mls/hr IV .Q24H [facility] Last Admin: 11/02/20 00:07 Dose: 20 mls/hr Documented by: Ceftriaxone Sodium 1 gm/ (Sodium Chloride) 50 mls @ 100 mls/hr IVPB Q24HR [facility] Last Admin: 11/02/20 07:29 Dose: 100 mls/hr Documented by: Remdesivir 100 mg/ Sodium (Chloride) 250 mls @ 250 mls/hr IVPB Q24H [facility] Stop: 11/03/20 17:59 Last Admin: 11/02/20 17:33 Dose: 250 mls/hr Documented by: Metoprolol Tartrate (Metoprolol Tartrate 25 Mg Tab) 25 mg PO BID@0600,1800 [facility] Last Admin: 11/02/20 17:33 Dose: 25 mg Documented by: Multivitamins (Multivitamins, Thera 1 Each Tab) 1 each PO HS@1800 [facility] Last Admin: 11/02/20 17:33 Dose: 1 each Documented by: Naloxone HCl (Naloxone 0.4 Mg/Ml 1 Ml Vial) 0.2 mg IV Q2M PRN PRN Reason: Opioid Reversal Ondansetron HCl (Ondansetron Odt 4 Mg Tab) 4 mg PO Q8HR PRN PRN Reason: Nausea Last Admin: 11/01/20 19:23 Dose: 4 mg Documented by: Senna/Docusate Sodium (Sennosides-Docusate Sodium 1 Each Tab) 1 each PO INIGUEZ [facility] Trimethoprim/Sulfamethoxazole (Sulfamethox-Tmp 800-160mg 1 Each Tab) 1 each PO Q12HR [facility] Last Admin: 11/02/20 07:29 Dose: 1 each Documented by: Zinc Sulfate (Zinc Sulfate 220 Mg Cap) 220 mg PO DAILY GAVIN Last Admin: 11/02/20 07:29 Dose: 220 mg Documented by: Past medical history: Spina bifida causing chronic paraplegia, chronic neurogenic bladder-patient does self-catheterization, multiple UTIs, GERD, chronic left hydroureter and hydronephrosis, left hip dislocated Past surgical history: See electronic chart from this admission including [employer] shunt Social history: . Does not smoke or drink alcohol. Family history: Grandparents had history of lung cancer VITAL SIGNS: GENERAL: 98.2, 63, 29, 107/75, 94% on BiPAP at 100% LUNGS: Respiratory rate increased, accessory muscles working, PSYCH: Alert and oriented x3; mood and affect anxious NEUROLOGICAL: Cranial nerves grossly intact; no facial asymmetry, moving upper extremity Rest of the exam per pulmonary and nursing Investigations: Reviewed in context of the clinical picture and assessment and plan November 02: D-dimer 1.3 CRP 24.5 October 31: D-dimer 1.3 CRP 55.9 WBC 7 hemoglobin 13 platelets 13.6 lymphocytes 0.9 d-dimer 1.29 potassium 4 bun 25 creatinine 1.08 CRP 81.5 pro-calcitonin 0.14 EKG tracing personally reviewed by me-normal sinus rhythm with some abnormal T waves Chest x-ray film personally reviewed by me-, portable/bilateral infiltrates with some consolidation Chest CTA: 80s of consolidation and groundglass opacities bilateral throughout Assessment and plan: -Acute severe bilateral COVID 19 pneumonitis, with symptoms starting about 8 days before presentation here-not improving Patient placed on IV Decadron, Pepcid, IV Remdesivir, vitamin C vitamin D. Lovenox -Possible secondary bacterial infection/pneumonia on ceftriaxone Acute severe hypoxic respiratory failure due to COVID 19 pneumonitis-not improving requiring high flow 15 L -currently on BiPAP -Chronic spina bifida causing chronic paraplegia Follow clinically -Chronic neurogenic bladder requiring self-catheterization -Chronic medical debility patient is wheelchair bound. Discussed with the patient. Continue current medication. Follow with pulmonary
[2020-11-03] MEDS: METOPROLOL TARTRATE 25 MG TAB PO SCH ×2 (05:14→17:28)
[2020-11-03] MEDS: SODIUM CHLORIDE 0.9% 1,000 ML IV SCH (05:18)
[2020-11-03] MEDS: CHOLECALCIFEROL 25 MCG (1000 IU) TABLET PO SCH (08:54)
[2020-11-03] MEDS: ASCORBIC ACID 500 MG TAB PO SCH (08:54)
[2020-11-03] MEDS: FAMOTIDINE 20 MG TAB PO SCH ×2 (08:54→20:15)
[2020-11-03] MEDS: ZINC SULFATE 220 MG CAP PO SCH (08:54)
[2020-11-03] MEDS: ENOXAPARIN 40 MG/0.4 ML SYRINGE SQ SCH ×2 (08:54→20:15)
[2020-11-03] MEDS: DEXAMETHASONE SOD PHOSPHATE 10 MG/ML 1 ML VIAL IV SCH ×2 (08:54→20:15)
[2020-11-03] MEDS: SULFAMETHOX-TMP 800-160MG 1 EACH TAB PO SCH ×2 (09:06→20:15)
[2020-11-03] MEDS: REMDESIVIR 100 MG in SODIUM CHLORIDE 0.9% 250 ML IVPB SCH (16:30)
[2020-11-03] MEDS: MULTIVITAMINS, THERA 1 EACH TAB PO SCH (17:28)
--- NOTE | 2020-11-03 19:29 | PN ---
PROGRESS NOTE DATE OF SERVICE: 11/03/2020 REASON FOR FOLLOWUP: COVID-19 pneumonia. INTERVAL HISTORY: The patient is afebrile. The patient overall is feeling better. She is breathing comfortably. Denies having any chest pain or worsening cough. No abdominal pain or diarrhea. PHYSICAL EXAMINATION: Her blood pressure is 108/71 with a pulse of 67, temperature 97.4. She is 97% on BiPAP. General description is a middle-aged female lying in bed in no distress. RESPIRATORY SYSTEM: Unlabored breathing. Clear to auscultation anteriorly. HEART: S1, S2. Regular rate and rhythm. ABDOMEN: Soft. No tenderness. LABS: Inflammatory markers are showing a downward trend. DIAGNOSTIC IMPRESSION AND PLAN: Patient with acute COVID-19 pneumonia with overall clinical improvement. The patient is currently on dexamethasone, Lovenox, zinc, ascorbic acid. She has received a dose of Actemra and has completed her course of remdesivir with no evidence of any secondary bacterial pneumonia. Antibiotic will be discontinued and the patient will be monitored closely. MMODL / IJN: [id number] /
--- NOTE | 2020-11-03 22:48 | P.PN ---
Progress Note - Text Progress Note Date: 11/03/20 Chief Complaint: Shortness of breath History of present token: This is a pleasant [address] Edward. Chronic stable medical conditions include chronic spina bifida causing paraplegia, chronic neurogenic bladder causing recurrent frequent UTIs patient does self-catheterization, GERD, chronic left hydroureter and hydronephrosis. Patient gets about with a wheelchair. chronic paraplegia. This is a patient started of with respiratory symptoms she states around November 23. Had some cough. Some chills and fevers. She also was in the ER because of her UTI. She then tested positive for COVID 19. She was then in the ER with a temperature 100.3 and a heart rate of 140. Pulse ox was 94% on room air. She was given Bactrim for a UTI and discharge. Progressively arrest. He symptoms have been getting worse. Has been febrile. Tachycardic. Tachypneic. Cough short of breath. Had a pulse ox of 75% on room air on presentation last night. Placed on high flow oxygen. Started on IV Decadron. IV Remdesivir. Patient was requiring high flow nasal cannula. Patient swished and to BiPAP. Today: Remains on BiPAP. Less Short of breath. Awake. Following commands/communicating. Review of systems: Attempted for constitutional, cardiovascular, GI, pulmonary. relevant finding as above Active Medications Acetaminophen (Acetaminophen Tab 325 Mg Tab) 650 mg PO Q6HR PRN PRN Reason: Mild Pain or Fever > 100.5 Last Admin: 11/01/20 12:21 Dose: 650 mg Documented by: Alprazolam (Alprazolam 0.25 Mg Tab) 0.25 mg PO TID PRN PRN Reason: Anxiety Last Admin: 11/02/20 17:33 Dose: 0.25 mg Documented by: Ascorbic Acid (Ascorbic Acid 500 Mg Tab) 1,000 mg PO DAILY [facility] Last Admin: 11/03/20 08:54 Dose: 1,000 mg Documented by: Benzonatate (Benzonatate 100 Mg Cap) 100 mg PO TID PRN PRN Reason: Cough Last Admin: 10/30/20 18:15 Dose: 100 mg Documented by: Cholecalciferol (Cholecalciferol 25 Mcg (1000 Iu) Tablet) 100 mcg PO DAILY [facility] Last Admin: 11/03/20 08:54 Dose: 100 mcg Documented by: Dexamethasone Sodium Phosphate (Dexamethasone Sod Phosphate 10 Mg/Ml 1 Ml Vial) 6 mg IV BID [facility] Last Admin: 11/03/20 20:15 Dose: 6 mg Documented by: Enoxaparin Sodium (Enoxaparin 40 Mg/0.4 Ml Syringe) 40 mg SQ BID [facility] Last Admin: 11/03/20 20:15 Dose: 40 mg Documented by: Famotidine (Famotidine 20 Mg Tab) 20 mg PO BID [facility] Last Admin: 11/03/20 20:15 Dose: 20 mg Documented by: Sodium Chloride (Saline 0.9%) 1,000 mls @ 20 mls/hr IV .Q24H [facility] Last Admin: 11/03/20 05:18 Dose: 20 mls/hr Documented by: Metoprolol Tartrate (Metoprolol Tartrate 25 Mg Tab) 25 mg PO BID@0600,1800 [facility] Last Admin: 11/03/20 17:28 Dose: 25 mg Documented by: Multivitamins (Multivitamins, Thera 1 Each Tab) 1 each PO HS@1800 [facility] Last Admin: 11/03/20 17:28 Dose: 1 each Documented by: Naloxone HCl (Naloxone 0.4 Mg/Ml 1 Ml Vial) 0.2 mg IV Q2M PRN PRN Reason: Opioid Reversal Ondansetron HCl (Ondansetron Odt 4 Mg Tab) 4 mg PO Q8HR PRN PRN Reason: Nausea Last Admin: 11/01/20 19:23 Dose: 4 mg Documented by: Senna/Docusate Sodium (Sennosides-Docusate Sodium 1 Each Tab) 1 each PO INIGUEZ [facility] Trimethoprim/Sulfamethoxazole (Sulfamethox-Tmp 800-160mg 1 Each Tab) 1 each PO Q12HR [facility] Last Admin: 11/03/20 20:15 Dose: 1 each Documented by: Zinc Sulfate (Zinc Sulfate 220 Mg Cap) 220 mg PO DAILY [facility] Last Admin: 11/03/20 08:54 Dose: 220 mg Documented by: Past medical history: Spina bifida causing chronic paraplegia, chronic neurogenic bladder-patient does self-catheterization, multiple UTIs, GERD, chronic left hydroureter and hydronephrosis, left hip dislocated Past surgical history: See electronic chart from this admission including [employer] shunt Social history: . Does not smoke or drink alcohol. Family history: Grandparents had history of lung cancer VITAL SIGNS: GENERAL: 97.4, 67, 28, 108/71, 97% on BiPAP at 100% LUNGS: Respiratory rate increased, breathing better, PSYCH: Alert and oriented x3; mood and affect anxious NEUROLOGICAL: Cranial nerves grossly intact; no facial asymmetry, moving upper extremity Rest of the exam per pulmonary and nursing Investigations: Reviewed in context of the clinical picture and assessment and plan November 03: D-dimer 1.03 LDH 2531 CRP 16.3 November 02: D-dimer 1.3 CRP 24.5 October 31: D-dimer 1.3 CRP 55.9 WBC 7 hemoglobin 13 platelets 13.6 lymphocytes 0.9 d-dimer 1.29 potassium 4 bun 25 creatinine 1.08 CRP 81.5 pro-calcitonin 0.14 EKG tracing personally reviewed by me-normal sinus rhythm with some abnormal T waves Chest x-ray film personally reviewed by me-, portable/bilateral infiltrates with some consolidation Chest CTA: 80s of consolidation and groundglass opacities bilateral throughout Assessment and plan: -Acute severe bilateral COVID 19 pneumonitis, with symptoms starting about 8 days before presentation here-not improving on IV Decadron, Pepcid, IV Remdesivir, vitamin C vitamin D. Lovenox -Possible secondary bacterial infection/pneumonia on ceftriaxone Acute severe hypoxic respiratory failure due to COVID 19 pneumonitis-not improving Initially high flow 15 L -currently on BiPAP/100%. Try to decrease FiO2 -Chronic spina bifida causing chronic paraplegia Follow clinically -Chronic neurogenic bladder requiring self-catheterization -Chronic medical debility patient is wheelchair bound. Discussed with the patient. Continue current medication. Follow with pulmonary
[2020-11-03] MEDS: DEXTROSE 5%-0.9% NACL 1,000 ML IV SCH (23:55)
[2020-11-04] MEDS: METOPROLOL TARTRATE 25 MG TAB PO SCH ×2 (06:33→18:17)
[2020-11-04] MEDS: CHOLECALCIFEROL 25 MCG (1000 IU) TABLET PO SCH (10:16)
[2020-11-04] MEDS: DEXAMETHASONE SOD PHOSPHATE 10 MG/ML 1 ML VIAL IV SCH ×2 (10:17→21:16)
[2020-11-04] MEDS: FAMOTIDINE 20 MG TAB PO SCH ×2 (10:17→21:16)
[2020-11-04] MEDS: ZINC SULFATE 220 MG CAP PO SCH (10:17)
[2020-11-04] MEDS: ASCORBIC ACID 500 MG TAB PO SCH (10:17)
[2020-11-04] MEDS: SULFAMETHOX-TMP 800-160MG 1 EACH TAB PO SCH ×2 (10:17→21:16)
[2020-11-04] MEDS: ENOXAPARIN 40 MG/0.4 ML SYRINGE SQ SCH ×2 (10:18→21:16)
--- NOTE | 2020-11-04 11:10 | P.PN ---
Subjective Progress Note Date: 11/03/20 Principal diagnosis: Acute hypoxic respiratory failure Bilateral covid 19 pneumonia Sepsis Baseline condition of spina bifid a with recurrent chronic urinary tract infection 11/03/2020, patient seen eval examined during rounds labs reviewed, status post a Actemera effusion respiratory status slightly better but however continued to require BiPAP machine, includes 15/10 with 80% oxygen sats are 95%, patient feels relatively better breathing has been easier, Luis on other therapies for COVID-19 pneumonia 11/02/2020, patient seen eval reexamined during the rounds labs reviewed medications reviewed care plan discussed, denies any chest pain shortness of breath is present denies any cough or sputum production, due to constant desaturation and low oxygenation patient has been moved from fourth floor to third floor on a telemetry bed, patient has been placed on BiPAP, BiPAP setting is 15/10 with 100% oxygen, feels slightly less short of breath on that setting able to tolerate BiPAP fairly well hemodynamic status stable saturations 90%, 11/01/2020, patient seen eval examined during the rounds labs reviewed medications reviewed care plan discussed, oxygen saturation continue to drop down in last 12-48 hours has been on high flow oxygen and mask, desaturate up to 70-80%, has been placed on BiPAP 15/10 with that oxygen saturation improved to 85%, we will consult infectious disease for trial of Actemra given that patient most likely having cytokine ana luisa 10/31/2020, patient seen eval examined during the rounds very short of breath on activity and exertion, address saturation is 87 to 90% on high flow oxygen with nonrebreather mask, denies any cough or sputum production patient has been instructed to prone as much as possible Patient came into the hospital with progressive shortness of breath cough patient is currently on nonrebreather mask symptoms started about 2 days ago with progressive malaise and myalgia, prior medical history significant for a spina bifid a as well as renal calculi has history of multiple UTIs, on arrival noted to have fever of 101, her oxygen saturation was just 75% however improved to 89-90% on nonrebreather mask, her inflammatory parameters were elevated including LDH C-reactive protein, chest x-ray showed bilateral interstitial opacities consistent with Coban 19 pneumonia, computed tomography scan negative for pulmonary embolism, however confirm the findings on the x-ray, currently patient is being treated with IV Decadron, Objective - Vital Signs Vital signs: Vital Signs Temp 97.4 F L 11/03/20 12:00 Pulse 76 11/03/20 14:00 Resp 24 11/03/20 14:00 BP 102/67 11/03/20 12:00 Pulse Ox 96 11/03/20 15:39 Intake & Output 11/02/20 11/03/20 11/03/20 18:59 06:59 18:59 Intake Total 120 Output Total 275 Balance 120 -275 Intake: Oral 120 Output: Urine 275 Other: Voiding Method Indwelling Catheter Indwelling Catheter Indwelling Catheter - Exam - Constitutional General appearance: average body habitus, cooperative, disheveled - EENT Eyes: PERRLA Ears: bilateral: normal - Neck Carotids: bilateral: upstroke normal - Respiratory Respiratory: bilateral: diminished, wheezing - Cardiovascular Rhythm: regular Heart sounds: normal: S1, S2 - Gastrointestinal General gastrointestinal: distended, soft - Neurologic Neurologic: CNII-XII intact - Musculoskeletal Musculoskeletal: gait normal, generalized weakness, strength equal bilaterally - Psychiatric Psychiatric: A&O x's 3, appropriate affect, intact judgment & insight - Labs CBC & Chem 7: 10/30/20 00:51 10/30/20 00:51 Labs: Abnormal Lab Results - Last 24 Hours (Table) 11/03/20 11/03/20 11/03/20 Range/Units 07:20 07:20 07:20 D-Dimer 1.03 H (<0.60) mg/L FEU Lactate Dehydrogenase 2531 H (313-618) U/L C-Reactive Protein 16.3 H (<10.0) mg/L Microbiology - Last 24 Hours (Table) 10/30/20 03:44 Blood Culture - Preliminary Blood No Growth after 96 hours 10/30/20 03:44 Blood Culture - Preliminary Blood No Growth after 96 hours Assessment and Plan Assessment: Acute hypoxic respiratory failure Likely developing cytokine ana luisa Bilateral covid 19 pneumonia Sepsis Baseline condition of spina bifid a with recurrent chronic urinary tract infection, will DC Bactrim monitor off of Bactrim Plan: patientis status post Actemera Supplemental oxygen with BiPAP Deep breathing exercises incentive spirometry Prone positioning of possible IV steroids in the form of Decadron IV REMdesivir 45 days Lovenox Further plan of care as per clinical response of the patient Time with Patient: Greater than 30
--- NOTE | 2020-11-04 11:11 | P.PN ---
Subjective Progress Note Date: 11/04/20 Principal diagnosis: Acute hypoxic respiratory failure Bilateral covid 19 pneumonia Sepsis Baseline condition of spina bifid a with recurrent chronic urinary tract infection 11/04/2020, patient seen eval examined during the rounds each and for breakfast and oral care has been switched from BiPAP 15/10 and 80% oxygen on with saturation was 95% to 6 L nasal cannula oxygen saturation remains stable 89% during evening, will continue BiPAP each night and when necessary during the day and high flow oxygen in between 11/03/2020, patient seen eval examined during rounds labs reviewed, status post a Actemera effusion respiratory status slightly better but however continued to require BiPAP machine, includes 15/10 with 80% oxygen sats are 95%, patient feels relatively better breathing has been easier, Luis on other therapies for COVID-19 pneumonia 11/02/2020, patient seen eval reexamined during the rounds labs reviewed medications reviewed care plan discussed, denies any chest pain shortness of breath is present denies any cough or sputum production, due to constant desaturation and low oxygenation patient has been moved from fourth floor to third floor on a telemetry bed, patient has been placed on BiPAP, BiPAP setting is 15/10 with 100% oxygen, feels slightly less short of breath on that setting able to tolerate BiPAP fairly well hemodynamic status stable saturations 90%, 11/01/2020, patient seen eval examined during the rounds labs reviewed medications reviewed care plan discussed, oxygen saturation continue to drop down in last 12-48 hours has been on high flow oxygen and mask, desaturate up to 70-80%, has been placed on BiPAP 15/10 with that oxygen saturation improved to 85%, we will consult infectious disease for trial of Actemra given that patient most likely having cytokine ana luisa 10/31/2020, patient seen eval examined during the rounds very short of breath on activity and exertion, address saturation is 87 to 90% on high flow oxygen with nonrebreather mask, denies any cough or sputum production patient has been instructed to prone as much as possible Patient came into the hospital with progressive shortness of breath cough patient is currently on nonrebreather mask symptoms started about 2 days ago with progressive malaise and myalgia, prior medical history significant for a spina bifid a as well as renal calculi has history of multiple UTIs, on arrival noted to have fever of 101, her oxygen saturation was just 75% however improved to 89-90% on nonrebreather mask, her inflammatory parameters were elevated including LDH C-reactive protein, chest x-ray showed bilateral interstitial opacities consistent with Coban 19 pneumonia, computed tomography scan negative for pulmonary embolism, however confirm the findings on the x-ray, currently patient is being treated with IV Decadron, Objective - Vital Signs Vital signs: Vital Signs Temp 98.1 F 11/04/20 04:25 Pulse 66 11/04/20 04:25 Resp 23 11/04/20 06:30 BP 93/66 11/04/20 06:30 Pulse Ox 95 11/04/20 06:30 Intake & Output 11/03/20 11/04/20 11/04/20 18:59 06:59 18:59 Intake Total 500 Output Total 1000 350 Balance -500 -350 Weight 74.4 kg Intake: Oral 500 Output: Urine 1000 350 Other: Voiding Method Indwelling Catheter Indwelling Catheter - Exam - Constitutional General appearance: average body habitus, cooperative, disheveled - EENT Eyes: PERRLA Ears: bilateral: normal - Neck Carotids: bilateral: upstroke normal - Respiratory Respiratory: bilateral: diminished, wheezing - Cardiovascular Rhythm: regular Heart sounds: normal: S1, S2 - Gastrointestinal General gastrointestinal: distended, soft - Neurologic Neurologic: CNII-XII intact - Musculoskeletal Musculoskeletal: gait normal, generalized weakness, strength equal bilaterally - Psychiatric Psychiatric: A&O x's 3, appropriate affect, intact judgment & insight - Labs CBC & Chem 7: 10/30/20 00:51 10/30/20 00:51 Labs: Microbiology - Last 24 Hours (Table) 10/30/20 03:44 Blood Culture - Preliminary Blood No Growth after 120 hours 10/30/20 03:44 Blood Culture - Preliminary Blood No Growth after 120 hours Assessment and Plan Assessment: Acute hypoxic respiratory failure Likely developing cytokine ana luisa Bilateral covid 19 pneumonia Sepsis Baseline condition of spina bifid a with recurrent chronic urinary tract infection, will DC Bactrim monitor off of Bactrim Plan: patientis status post Actemera Supplemental oxygen with BiPAP Deep breathing exercises incentive spirometry Prone positioning of possible IV steroids in the form of Decadron IV REMdesivir 45 days Lovenox Further plan of care as per clinical response of the patient Time with Patient: Greater than 30
[2020-11-04 12:46] LABS: African American GFR (CKD) >90 (>60 ml/min/1.73 sqM); Anion Gap 10 mmol/L; Blood Urea Nitrogen 17 mg/dL (7-17); C Reactive Protein 1.1 mg/dL (<1.0); Calcium 8.6 mg/dL (8.4-10.2); Carbon Dioxide 22 mmol/L (22-30); Chloride 103 mmol/L (98-107); Glucose 159 mg/dL (74-99); Non-African American GFR(CKD) >90 (>60 ml/min/1.73 sqM); Potassium 4.2 mmol/L (3.5-5.1); Sodium 135 mmol/L (137-145)
[2020-11-04] MEDS: DEXTROSE 5%-0.9% NACL 1,000 ML IV SCH ×2 (13:03→21:21)
--- NOTE | 2020-11-04 17:57 | PN ---
PROGRESS NOTE DATE OF SERVICE: 11/04/2020 REASON FOR FOLLOWUP: COVID-19 infection. INTERVAL HISTORY: Patient is afebrile. The patient is feeling better. She is breathing more comfortably, however, still requiring BiPAP. The patient denies having any chest pain or cough. No nausea. No vomiting. No abdominal pain or diarrhea. PHYSICAL EXAMINATION: Blood pressure was 102/69, pulse of 75, temperature 98.1. She is 99% on BiPAP. General description is a middle-aged female lying in bed in no distress. Respiratory system: Unlabored breathing, clear to auscultation anteriorly. Heart S1, S2. Regular rate and rhythm. ABDOMEN: Soft, no tenderness. LABS: BUN of 17, creatinine 0.56. CRP is 1.1. D-dimer is slightly up at 1.11. DIAGNOSTIC IMPRESSION AND PLAN: Patient with acute COVID-19 infection in this patient who has completed Remdesivir and received a dose of Actemra. The patient is currently on dexamethasone, Lovenox, zinc and ascorbic acid to continue while monitoring clinical course closely. Continue supportive care. MMODL / IJN: [id number] /
[2020-11-04] MEDS: MULTIVITAMINS, THERA 1 EACH TAB PO SCH (18:17)
--- NOTE | 2020-11-04 22:08 | P.PN ---
Progress Note - Text Progress Note Date: 11/04/20 Chief Complaint: Shortness of breath History of present token: This is a pleasant [address] Edward. Chronic stable medical conditions include chronic spina bifida causing paraplegia, chronic neurogenic bladder causing recurrent frequent UTIs patient does self-catheterization, GERD, chronic left hydroureter and hydronephrosis. Patient gets about with a wheelchair. chronic paraplegia. This is a patient started of with respiratory symptoms she states around November 23. Had some cough. Some chills and fevers. She also was in the ER because of her UTI. She then tested positive for COVID 19. She was then in the ER with a temperature 100.3 and a heart rate of 140. Pulse ox was 94% on room air. She was given Bactrim for a UTI and discharge. Progressively arrest. He symptoms have been getting worse. Has been febrile. Tachycardic. Tachypneic. Cough short of breath. Had a pulse ox of 75% on room air on presentation last night. Placed on high flow oxygen. Started on IV Decadron. IV Remdesivir. Patient was requiring high flow nasal cannula. Patient swished and to BiPAP. Today: Remains on BiPAP. Breathing is better today. More restful. Was able to eat some. FiO2 been decreased Review of systems: Attempted for constitutional, cardiovascular, GI, pulmonary. relevant finding as above Active Medications Acetaminophen (Acetaminophen Tab 325 Mg Tab) 650 mg PO Q6HR PRN PRN Reason: Mild Pain or Fever > 100.5 Last Admin: 11/01/20 12:21 Dose: 650 mg Documented by: Alprazolam (Alprazolam 0.25 Mg Tab) 0.25 mg PO TID PRN PRN Reason: Anxiety Last Admin: 11/02/20 17:33 Dose: 0.25 mg Documented by: Ascorbic Acid (Ascorbic Acid 500 Mg Tab) 1,000 mg PO DAILY [facility] Last Admin: 11/04/20 10:17 Dose: 1,000 mg Documented by: Benzonatate (Benzonatate 100 Mg Cap) 100 mg PO TID PRN PRN Reason: Cough Last Admin: 10/30/20 18:15 Dose: 100 mg Documented by: Cholecalciferol (Cholecalciferol 25 Mcg (1000 Iu) Tablet) 100 mcg PO DAILY [facility] Last Admin: 11/04/20 10:16 Dose: 100 mcg Documented by: Dexamethasone Sodium Phosphate (Dexamethasone Sod Phosphate 10 Mg/Ml 1 Ml Vial) 6 mg IV BID [facility] Last Admin: 11/04/20 21:16 Dose: 6 mg Documented by: Enoxaparin Sodium (Enoxaparin 40 Mg/0.4 Ml Syringe) 40 mg SQ BID [facility] Last Admin: 11/04/20 21:16 Dose: 40 mg Documented by: Famotidine (Famotidine 20 Mg Tab) 20 mg PO BID [facility] Last Admin: 11/04/20 21:16 Dose: 20 mg Documented by: Dextrose/Sodium Chloride (Dextrose 5%-Ns Iv Soln) 1,000 mls @ 100 mls/hr IV .Q10H [facility] Last Admin: 11/04/20 21:21 Dose: 100 mls/hr Documented by: Metoprolol Tartrate (Metoprolol Tartrate 25 Mg Tab) 25 mg PO BID@0600,1800 [facility] Last Admin: 11/04/20 18:17 Dose: 25 mg Documented by: Multivitamins (Multivitamins, Thera 1 Each Tab) 1 each PO HS@1800 [facility] Last Admin: 11/04/20 18:17 Dose: 1 each Documented by: Naloxone HCl (Naloxone 0.4 Mg/Ml 1 Ml Vial) 0.2 mg IV Q2M PRN PRN Reason: Opioid Reversal Ondansetron HCl (Ondansetron Odt 4 Mg Tab) 4 mg PO Q8HR PRN PRN Reason: Nausea Last Admin: 11/01/20 19:23 Dose: 4 mg Documented by: Senna/Docusate Sodium (Sennosides-Docusate Sodium 1 Each Tab) 1 each PO INIGUEZ [facility] Trimethoprim/Sulfamethoxazole (Sulfamethox-Tmp 800-160mg 1 Each Tab) 1 each PO Q12HR [facility] Last Admin: 11/04/20 21:16 Dose: 1 each Documented by: Zinc Sulfate (Zinc Sulfate 220 Mg Cap) 220 mg PO DAILY [facility] Last Admin: 11/04/20 10:17 Dose: 220 mg Documented by: Past medical history: Spina bifida causing chronic paraplegia, chronic neurogenic bladder-patient does self-catheterization, multiple UTIs, GERD, chronic left hydroureter and hydronephrosis, left hip dislocated Past surgical history: See electronic chart from this admission including [employer] shunt Social history: . Does not smoke or drink alcohol. Family history: Grandparents had history of lung cancer VITAL SIGNS: GENERAL: 98.1, 75, 25, 102.69, 99% on BiPAP at 75% LUNGS: Respiratory rate increased, breathing improving PSYCH: Alert and oriented x3; mood and affect normal NEUROLOGICAL: Cranial nerves grossly intact; no facial asymmetry, moving upper extremity Rest of the exam per pulmonary and nursing Investigations: Reviewed in context of the clinical picture and assessment and plan November 04: D-dimer on 0.11 potassium 4.2 CRP 1.1 November 03: D-dimer 1.03 LDH 2531 CRP 16.3 November 02: D-dimer 1.3 CRP 24.5 October 31: D-dimer 1.3 CRP 55.9 WBC 7 hemoglobin 13 platelets 13.6 lymphocytes 0.9 d-dimer 1.29 potassium 4 bun 25 creatinine 1.08 CRP 81.5 pro-calcitonin 0.14 EKG tracing personally reviewed by me-normal sinus rhythm with some abnormal T waves Chest x-ray film personally reviewed by me-, portable/bilateral infiltrates with some consolidation Chest CTA: 80s of consolidation and groundglass opacities bilateral throughout Assessment and plan: -Acute severe bilateral COVID 19 pneumonitis, with symptoms starting about 8 days before presentation slow to respond on IV Decadron, Pepcid, IV Remdesivir, vitamin C vitamin D. Lovenox -Possible secondary bacterial infection/pneumonia on ceftriaxone Acute severe hypoxic respiratory failure due to COVID 19 slow to respond Initially high flow 15 L -currently on BiPAP/FiO2 decreased to 75% -Chronic spina bifida causing chronic paraplegia Follow clinically -Chronic paraplegia from spina bifida -Chronic neurogenic bladder, and a baseline patient straight caths 4 times a day Currently Liu catheter -Chronic neurogenic bladder requiring self-catheterization -Chronic medical debility patient is wheelchair bound. Discussed with the patient. Decrease FiO2 as tolerated
[2020-11-04] MEDS: OXYMETAZOLINE 0.05% NASL SPRAY 1 SPRAY BOTTLE NASAL SCH (22:30)
[2020-11-05] MEDS: DEXTROSE 5%-0.9% NACL 1,000 ML IV SCH ×2 (06:20→16:21)
[2020-11-05] MEDS: SENNOSIDES-DOCUSATE SODIUM 1 EACH TAB PO SCH (06:20)
[2020-11-05] MEDS: METOPROLOL TARTRATE 25 MG TAB PO SCH ×2 (06:20→18:23)
[2020-11-05] MEDS: FAMOTIDINE 20 MG TAB PO SCH ×2 (10:04→20:01)
[2020-11-05] MEDS: ZINC SULFATE 220 MG CAP PO SCH (10:04)
[2020-11-05] MEDS: ASCORBIC ACID 500 MG TAB PO SCH (10:04)
[2020-11-05] MEDS: CHOLECALCIFEROL 25 MCG (1000 IU) TABLET PO SCH (10:04)
[2020-11-05] MEDS: DEXAMETHASONE SOD PHOSPHATE 10 MG/ML 1 ML VIAL IV SCH ×2 (10:05→20:01)
[2020-11-05] MEDS: ENOXAPARIN 40 MG/0.4 ML SYRINGE SQ SCH ×2 (10:05→20:00)
[2020-11-05] MEDS: SULFAMETHOX-TMP 800-160MG 1 EACH TAB PO SCH ×2 (10:05→20:00)
[2020-11-05] MEDS: OXYMETAZOLINE 0.05% NASL SPRAY 1 SPRAY BOTTLE NASAL SCH ×2 (10:08→20:03)
--- NOTE | 2020-11-05 10:35 | P.PN ---
Subjective Progress Note Date: 11/05/20 Principal diagnosis: Acute hypoxic respiratory failure Bilateral covid 19 pneumonia Sepsis Baseline condition of spina bifid a with recurrent chronic urinary tract infection 11/05/2020, patient seen and evaluated examined labs reviewed medications reviewed overall respiratory status slightly better able to tolerate oxygen nasal cannula for short period time but most of time however still require BiPAP support, current BiPAP support include IPAP of 15 and EPAP of 5 with 60% oxygen, oxygenation is gradually being tapered down, patient remains on her usual therapy for COVID-19 pneumonia also status post Actemra, 11/04/2020, patient seen eval examined during the rounds each and for breakfast and oral care has been switched from BiPAP 15/10 and 80% oxygen on with saturat ion was 95% to 6 L nasal cannula oxygen saturation remains stable 89% during evening, will continue BiPAP each night and when necessary during the day and high flow oxygen in between 11/03/2020, patient seen eval examined during rounds labs reviewed, status post a Actemera effusion respiratory status slightly better but however continued to require BiPAP machine, includes 15/10 with 80% oxygen sats are 95%, patient feels relatively better breathing has been easier, Luis on other therapies for COVID-19 pneumonia 11/02/2020, patient seen eval reexamined during the rounds labs reviewed medica tions reviewed care plan discussed, denies any chest pain shortness of breath is present denies any cough or sputum production, due to constant desaturation and low oxygenation patient has been moved from fourth floor to third floor on a telemetry bed, patient has been placed on BiPAP, BiPAP setting is 15/10 with 100% oxygen, feels slightly less short of breath on that setting able to tolerate BiPAP fairly well hemodynamic status stable saturations 90%, 11/01/2020, patient seen eval examined during the rounds labs reviewed medications reviewed care plan discussed, oxygen saturation continue to drop down in last 12-48 hours has been on high flow oxygen and mask, desaturate up to 70-80%, has been placed on BiPAP 15/10 with that oxygen saturation improved to 85%, we will consult infectious disease for trial of Actemra given that patient most likely having cytokine ana luisa 10/31/2020, patient seen eval examined during the rounds very short of breath on activity and exertion, address saturation is 87 to 90% on high flow oxygen with nonrebreather mask, denies any cough or sputum production patient has been instructed to prone as much as possible Patient came into the hospital with progressive shortness of breath cough patient is currently on nonrebreather mask symptoms started about 2 days ago with progressive malaise and myalgia, prior medical history significant for a spina bifid a as well as renal calculi has history of multiple UTIs, on arrival noted to have fever of 101, her oxygen saturation was just 75% however improved to 89-90% on nonrebreather mask, her inflammatory parameters were elevated including LDH C-reactive protein, chest x-ray showed bilateral interstitial o pacities consistent with Coban 19 pneumonia, computed tomography scan negative for pulmonary embolism, however confirm the findings on the x-ray, currently patient is being treated with IV Decadron, Objective - Vital Signs Vital signs: Vital Signs Temp 98.2 F 11/05/20 05:00 Pulse 86 11/05/20 05:00 Resp 25 H 11/05/20 05:00 BP 99/66 11/05/20 05:00 Pulse Ox 90 L 11/05/20 05:00 Intake & Output 11/04/20 11/05/20 11/05/20 18:59 06:59 18:59 Intake Total 480 240 Output Total 600 1000 Balance -120 -1000 240 Weight 78 kg Intake: Oral 480 240 Output: Urine 600 1000 Other: Voiding Method Indwelling Catheter Indwelling Catheter - Exam - Constitutional General appearance: average body habitus, cooperative, disheveled - EENT Eyes: PERRLA Ears: bilateral: normal - Neck Carotids: bilateral: upstroke normal - Respiratory Respiratory: bilateral: diminished, wheezing - Cardiovascular Rhythm: regular Heart sounds: normal: S1, S2 - Gastrointestinal General gastrointestinal: distended, soft - Neurologic Neurologic: CNII-XII intact - Musculoskeletal Musculoskeletal: gait normal, generalized weakness, strength equal bilaterally - Psychiatric Psychiatric: A&O x's 3, appropriate affect, intact judgment & insight - Labs CBC & Chem 7: 10/30/20 00:51 11/04/20 11:34 Labs: Abnormal Lab Results - Last 24 Hours (Table) 11/04/20 11/04/20 Range/Units 11:34 11:34 D-Dimer 1.11 H (<0.60) mg/L FEU Sodium 135 L (137-145) mmol/L Glucose 159 H (74-99) mg/dL C-Reactive Protein 1.1 H (<1.0) mg/dL Microbiology - Last 24 Hours (Table) 10/30/20 03:44 Blood Culture - Final Blood No Growth after 144 hours 10/30/20 03:44 Blood Culture - Final Blood No Growth after 144 hours Assessment and Plan Assessment: Acute hypoxic respiratory failure Sepsis due to COVID-19 pneumonia Bilateral covid 19 pneumonia Baseline condition of spina bifid a with recurrent chronic urinary tract in fection, off of Bactrim Plan: patientis status post Actemera Supplemental oxygen with BiPAP alternating with the nasal cannula for meals and for break with BiPAP Deep breathing exercises incentive spirometry Prone positioning of possible IV steroids in the form of Decadron IV REMdesivir for 5 days Lovenox Further plan of care as per clinical response of the patient Time with Patient: Greater than 30
--- NOTE | 2020-11-05 17:18 | PN ---
PROGRESS NOTE DATE OF SERVICE: 11/05/2020. REASON FOR FOLLOW UP: COVID-19 infection. INTERVAL HISTORY: Patient is currently afebrile. Patient is breathing comfortably on BiPAP. The patient denies any chest pain or any worsening cough. No abdominal pain or diarrhea. PHYSICAL EXAMINATION: Blood pressure 101/74, pulse of 73, temperature 98.2. She is 93% on BiPAP, FiO2 is down to 60%. General description is a middle-aged female lying in bed in no distress. Respiratory system: Unlabored breathing, clear to auscultation anteriorly. Heart S1, S2. Regular rate and rhythm. Abdomen: Soft, no tenderness. LABS: BUN of 72, creatinine 0.56, and no new labs have been obtained today. DIAGNOSTIC IMPRESSION AND PLAN: Patient with acute COVID-19 pneumonia. Patient has completed her Remdesivir therapy, also received a dose of Actemra. Currently on dexamethasone, Zinc, Lovenox and ascorbic acid to continue along with respiratory support and monitor clinical course closely. MMODL / IJN: [id number] /
[2020-11-05] MEDS ORDERED: ARTIFICIAL TEARS-HYPROMELLOSE DROPS 15 ML BTL BOTH EYES PRN (18:17)
[2020-11-05] MEDS: MULTIVITAMINS, THERA 1 EACH TAB PO SCH (18:23)
--- NOTE | 2020-11-05 20:58 | P.PN ---
Progress Note - Text Progress Note Date: 11/05/20 Chief Complaint: Shortness of breath History of present token: This is a pleasant [address] Edward. Chronic stable medical conditions include chronic spina bifida causing paraplegia, chronic neurogenic bladder causing recurrent frequent UTIs patient does self-catheterization, GERD, chronic left hydroureter and hydronephrosis. Patient gets about with a wheelchair. chronic paraplegia. This is a patient started of with respiratory symptoms she states around November 23. Had some cough. Some chills and fevers. She also was in the ER because of her UTI. She then tested positive for COVID 19. She was then in the ER with a temperature 100.3 and a heart rate of 140. Pulse ox was 94% on room air. She was given Bactrim for a UTI and discharge. Progressively arrest. He symptoms have been getting worse. Has been febrile. Tachycardic. Tachypneic. Cough short of breath. Had a pulse ox of 75% on room air on presentation last night. Placed on high flow oxygen. Started on IV Decadron. IV Remdesivir. Patient was requiring high flow nasal cannula. Changed to BiPAP. Today: Remains on BiPAP. Breathing is better. Did eat some breakfast this morning. On 60% FiO2. Oral intake about 50% Review of systems: Was done for constitutional, cardiovascular, GI, pulmonary. relevant finding as above Active Medications Acetaminophen (Acetaminophen Tab 325 Mg Tab) 650 mg PO Q6HR PRN PRN Reason: Mild Pain or Fever > 100.5 Last Admin: 11/01/20 12:21 Dose: 650 mg Documented by: Alprazolam (Alprazolam 0.25 Mg Tab) 0.25 mg PO TID PRN PRN Reason: Anxiety Last Admin: 11/02/20 17:33 Dose: 0.25 mg Documented by: Artificial Tears (Artificial Tears-Hypromellose Drops 15 Ml Btl) 2 drops BOTH EYES QID PRN PRN Reason: Dry Eye(s) Last Admin: 11/05/20 18:48 Dose: 2 drops Documented by: Ascorbic Acid (Ascorbic Acid 500 Mg Tab) 1,000 mg PO DAILY [facility] Last Admin: 11/05/20 10:04 Dose: 1,000 mg Documented by: Benzonatate (Benzonatate 100 Mg Cap) 100 mg PO TID PRN PRN Reason: Cough Last Admin: 10/30/20 18:15 Dose: 100 mg Documented by: Cholecalciferol (Cholecalciferol 25 Mcg (1000 Iu) Tablet) 100 mcg PO DAILY [facility] Last Admin: 11/05/20 10:04 Dose: 100 mcg Documented by: Dexamethasone Sodium Phosphate (Dexamethasone Sod Phosphate 10 Mg/Ml 1 Ml Vial) 6 mg IV BID [facility] Last Admin: 11/05/20 20:01 Dose: 6 mg Documented by: Enoxaparin Sodium (Enoxaparin 40 Mg/0.4 Ml Syringe) 40 mg SQ BID [facility] Last Admin: 11/05/20 20:00 Dose: 40 mg Documented by: Famotidine (Famotidine 20 Mg Tab) 20 mg PO BID [facility] Last Admin: 11/05/20 20:01 Dose: 20 mg Documented by: Dextrose/Sodium Chloride (Dextrose 5%-Ns Iv Soln) 1,000 mls @ 100 mls/hr IV .Q10H [facility] Last Admin: 11/05/20 16:21 Dose: 100 mls/hr Documented by: Metoprolol Tartrate (Metoprolol Tartrate 25 Mg Tab) 25 mg PO BID@0600,1800 [facility] Last Admin: 11/05/20 18:23 Dose: 25 mg Documented by: Multivitamins (Multivitamins, Thera 1 Each Tab) 1 each PO HS@1800 [facility] Last Admin: 11/05/20 18:23 Dose: 1 each Documented by: Naloxone HCl (Naloxone 0.4 Mg/Ml 1 Ml Vial) 0.2 mg IV Q2M PRN PRN Reason: Opioid Reversal Ondansetron HCl (Ondansetron Odt 4 Mg Tab) 4 mg PO Q8HR PRN PRN Reason: Nausea Last Admin: 11/01/20 19:23 Dose: 4 mg Documented by: Oxymetazoline HCl (Oxymetazoline 0.05% Nasl [place] 1 [place] Bottle) 2 spray NASAL BID [facility] Last Admin: 11/05/20 20:03 Dose: Not Given Documented by: Senna/Docusate Sodium (Sennosides-Docusate Sodium 1 Each Tab) 1 each PO INIGUEZ [facility] Last Admin: 11/05/20 06:20 Dose: 1 each Documented by: Trimethoprim/Sulfamethoxazole (Sulfamethox-Tmp 800-160mg 1 Each Tab) 1 each PO Q12HR [facility] Last Admin: 11/05/20 20:00 Dose: 1 each Documented by: Zinc Sulfate (Zinc Sulfate 220 Mg Cap) 220 mg PO DAILY [facility] Last Admin: 11/05/20 10:04 Dose: 220 mg Documented by: Past medical history: Spina bifida causing chronic paraplegia, chronic neurogenic bladder-patient does self-catheterization, multiple UTIs, GERD, chronic left hydroureter and hydronephrosis, left hip dislocated Past surgical history: See electronic chart from this admission including ALL ROUND LOGGER shunt Social history: . Does not smoke or drink alcohol. Family history: Grandparents had history of lung cancer VITAL SIGNS: GENERAL: 98.2, 72, 28, 100/82, 91% on BiPAP at 60% LUNGS: Respiratory rate increased, PSYCH: Alert and oriented x3; mood and affect normal NEUROLOGICAL: Cranial nerves grossly intact; no facial asymmetry, moving upper extremity Rest of the exam per pulmonary and nursing Investigations: Reviewed in context of the clinical picture and assessment and plan November 05: D-dimer 1.11 CRP 1.1 November 04: D-dimer on 0.11 potassium 4.2 CRP 1.1 November 03: D-dimer 1.03 LDH 2531 CRP 16.3 November 02: D-dimer 1.3 CRP 24.5 October 31: D-dimer 1.3 CRP 55.9 WBC 7 hemoglobin 13 platelets 13.6 lymphocytes 0.9 d-dimer 1.29 potassium 4 bun 25 creatinine 1.08 CRP 81.5 pro-calcitonin 0.14 EKG tracing personally reviewed by me-normal sinus rhythm with some abnormal T waves Chest x-ray film personally reviewed by me-, portable/bilateral infiltrates with some consolidation Chest CTA: 80s of consolidation and groundglass opacities bilateral throughout Assessment and plan: -Acute severe bilateral COVID 19 pneumonitis, with symptoms starting about 8 days before presentation- slow to respond on IV Decadron, Pepcid, IV Remdesivir, vitamin C vitamin D. Lovenox -Possible secondary bacterial infection/pneumonia on ceftriaxone Acute severe hypoxic respiratory failure due to COVID 19 slow to respond Initially high flow 15 L -currently on BiPAP/FiO2 decreased to 60% -Chronic spina bifida causing chronic paraplegia Follow clinically -Chronic paraplegia from spina bifida -Chronic neurogenic bladder, and a baseline patient straight caths 4 times a day Currently Liu catheter -Chronic neurogenic bladder requiring self-catheterization -Chronic medical debility patient is wheelchair bound. Discussed with the patient. Titrate down FiO2 as tolerated. Encourage oral intake
[2020-11-06] MEDS: METOPROLOL TARTRATE 25 MG TAB PO SCH ×2 (05:31→17:33)
[2020-11-06] MEDS: DEXTROSE 5%-0.9% NACL 1,000 ML IV SCH ×3 (06:02→15:21)
[2020-11-06] MEDS: FAMOTIDINE 20 MG TAB PO SCH ×2 (08:44→19:42)
[2020-11-06] MEDS: CHOLECALCIFEROL 25 MCG (1000 IU) TABLET PO SCH (08:44)
[2020-11-06] MEDS: ASCORBIC ACID 500 MG TAB PO SCH (08:44)
[2020-11-06] MEDS: ENOXAPARIN 40 MG/0.4 ML SYRINGE SQ SCH ×2 (08:44→19:42)
[2020-11-06] MEDS: SULFAMETHOX-TMP 800-160MG 1 EACH TAB PO SCH (08:44)
[2020-11-06] MEDS: ZINC SULFATE 220 MG CAP PO SCH (08:44)
[2020-11-06] MEDS: DEXAMETHASONE SOD PHOSPHATE 10 MG/ML 1 ML VIAL IV SCH ×2 (08:45→19:42)
[2020-11-06] MEDS: OXYMETAZOLINE 0.05% NASL SPRAY 1 SPRAY BOTTLE NASAL SCH ×2 (08:45→19:43)
--- NOTE | 2020-11-06 11:19 | P.PN ---
Subjective Progress Note Date: 11/06/20 Principal diagnosis: Acute hypoxic respiratory failure Bilateral covid 19 pneumonia Sepsis Baseline condition of spina bifid a with recurrent chronic urinary tract infection 11/06/2020, patient seen eval examined during the rounds she is in good spirits breathing comfortably denies any chest pain however hypoxia is still there be saturated on 6 L nasal cannulae into high 70s and low 80s, has been on BiPAP currently IPAP of 10:15 and EPAP of 10 with 60% oxygen, will attempt high flow oxygen aerosolysedfor oral care eating and for taking a break from BiPAP machine 11/05/2020, patient seen and evaluated examined labs reviewed medications reviewed overall respiratory status slightly better able to tolerate oxygen nasal cannula for short period time but most of time however still require BiPAP support, current BiPAP support include IPAP of 15 and EPAP of 5 with 60% oxygen, oxygenation is gradually being tapered down, patient remains on her usual therapy for COVID-19 pneumonia also status post Actemra, 11/04/2020, patient seen eval examined during the rounds each and for breakfast and oral care has been switched from BiPAP 15/10 and 80% oxygen on with saturation was 95% to 6 L nasal cannula oxygen saturation remains stable 89% during evening, will continue BiPAP each night and when necessary during the day and high flow oxygen in between 11/03/2020, patient seen eval examined during rounds labs reviewed, status post a Actemera effusion respiratory status slightly better but however continued to require BiPAP machine, includes 15/10 with 80% oxygen sats are 95%, patient feels relatively better breathing has been easier, Luis on other therapies for COVID-19 pneumonia 11/02/2020, patient seen eval reexamined during the rounds labs reviewed medications reviewed care plan discussed, denies any chest pain shortness of breath is present denies any cough or sputum production, due to constant desaturation and low oxygenation patient has been moved from fourth floor to third floor on a telemetry bed, patient has been placed on BiPAP, BiPAP setting is 15/10 with 100% oxygen, feels slightly less short of breath on that setting able to tolerate BiPAP fairly well hemodynamic status stable saturations 90%, 11/01/2020, patient seen eval examined during the rounds labs reviewed medications reviewed care plan discussed, oxygen saturation continue to drop down in last 12-48 hours has been on high flow oxygen and mask, desaturate up to 70-80%, has been placed on BiPAP 04/05 with that oxygen saturation improved to 85%, we will consult infectious disease for trial of Actemra given that patient most likely having cytokine ana luisa 10/31/2020, patient seen eval examined during the rounds very short of breath on activity and exertion, address saturation is 87 to 90% on high flow oxygen with nonrebreather mask, denies any cough or sputum production patient has been instructed to prone as much as possible Patient came into the hospital with progressive shortness of breath cough patient is currently on nonrebreather mask symptoms started about 2 days ago with progressive malaise and myalgia, prior medical history significant for a spina bifid a as well as renal calculi has history of multiple UTIs, on arrival noted to have fever of 101, her oxygen saturation was just 75% however improved to 89-90% on nonrebreather mask, her inflammatory parameters were elevated including LDH C-reactive protein, chest x-ray showed bilateral interstitial opacities consistent with Coban 19 pneumonia, computed tomography scan negative for pulmonary embolism, however confirm the findings on the x-ray, currently patient is being treated with IV Decadron, Objective - Vital Signs Vital signs: Vital Signs Temp 98.4 F 11/06/20 08:41 Pulse 82 11/06/20 08:41 Resp 20 11/06/20 08:41 BP 95/63 11/06/20 08:41 Pulse Ox 95 11/06/20 08:41 Intake & Output 11/05/20 11/06/20 11/06/20 18:59 06:59 18:59 Intake Total 460 220 240 Output Total 200 1600 Balance 260 -1380 240 Weight 77 kg 77 kg Intake: Oral 460 220 240 Output: Urine 200 1600 Other: Voiding Method Indwelling Catheter Indwelling Catheter Indwelling Catheter - Exam - Constitutional General appearance: average body habitus, cooperative, disheveled - EENT Eyes: PERRLA Ears: bilateral: normal - Neck Carotids: bilateral: upstroke normal - Respiratory Respiratory: bilateral: diminished, wheezing - Cardiovascular Rhythm: regular Heart sounds: normal: S1, S2 - Gastrointestinal General gastrointestinal: distended, soft - Neurologic Neurologic: CNII-XII intact - Musculoskeletal Musculoskeletal: gait normal, generalized weakness, strength equal bilaterally - Psychiatric Psychiatric: A&O x's 3, appropriate affect, intact judgment & insight - Labs CBC & Chem 7: 10/30/20 00:51 11/04/20 11:34 Assessment and Plan Assessment: Acute hypoxic respiratory failure Sepsis due to COVID-19 pneumonia Bilateral covid 19 pneumonia Baseline condition of spina bifid a with recurrent chronic urinary tract infection, off of Bactrim Plan: patientis status post Actemera Supplemental oxygen with BiPAP alternating with the nasal cannula for meals and for break with BiPAP Deep breathing exercises incentive spirometry Prone positioning of possible IV steroids in the form of Decadron IV REMdesivir for 5 days Lovenox Further plan of care as per clinical response of the patient Time with Patient: Greater than 30
--- NOTE | 2020-11-06 15:47 | PN ---
PROGRESS NOTE DATE OF SERVICE: 11/06/2020 REASON FOR FOLLOWUP: COVID-19 pneumonia. INTERVAL HISTORY: The patient is currently afebrile. Patient is breathing comfortably. Still requiring a BiPAP though. Denies having any chest pain. Occasional cough. No abdominal pain or diarrhea. PHYSICAL EXAMINATION: Blood pressure 109/77, pulse of 80, temperature of 98.4. She is currently 92% on BiPAP. General description is a middle-aged female lying in bed in no distress. RESPIRATORY SYSTEM: Unlabored breathing, clear to auscultation anteriorly. HEART: S1, S2. Regular rate and rhythm. ABDOMEN: Soft, no tenderness. LABS: No new labs have been obtained today. DIAGNOSTIC IMPRESSION AND PLAN: Patient with acute COVID-19 pneumonia. Patient has completed her remdesivir therapy as well as received Actemra. Currently on Lovenox, Bactrim, zinc, ascorbic acid to continue along with respiratory support and monitor clinical course closely. MMODL / IJN: [id number] /
[2020-11-06] MEDS: MULTIVITAMINS, THERA 1 EACH TAB PO SCH (17:33)
--- NOTE | 2020-11-06 21:51 | P.PN ---
Progress Note - Text Progress Note Date: 11/06/20 Chief Complaint: Shortness of breath History of present token: This is a pleasant [address] Edward. Chronic stable medical conditions include chronic spina bifida causing paraplegia, chronic neurogenic bladder causing recurrent frequent UTIs patient does self-catheterization, GERD, chronic left hydroureter and hydronephrosis. Patient gets about with a wheelchair. chronic paraplegia. This is a patient started of with respiratory symptoms she states around November 23. Had some cough. Some chills and fevers. She also was in the ER because of her UTI. She then tested positive for COVID 19. She was then in the ER with a temperature 100.3 and a heart rate of 140. Pulse ox was 94% on room air. She was given Bactrim for a UTI and discharge. Progressively arrest. He symptoms have been getting worse. Has been febrile. Tachycardic. Tachypneic. Cough short of breath. Had a pulse ox of 75% on room air on presentation last night. Placed on high flow oxygen. Started on IV Decadron. IV Remdesivir. Patient was requiring high flow nasal cannula. Changed to BiPAP. Today: Patient this morning was changeover from BiPAP to 15 L high flow nasal cannula. Feeling better. Oral intake fairly good. Laying in bed. Some shortness of breath Review of systems: Was done for constitutional, cardiovascular, GI, pulmonary. relevant finding as above Active Medications Acetaminophen (Acetaminophen Tab 325 Mg Tab) 650 mg PO Q6HR PRN PRN Reason: Mild Pain or Fever > 100.5 Last Admin: 11/01/20 12:21 Dose: 650 mg Documented by: Alprazolam (Alprazolam 0.25 Mg Tab) 0.25 mg PO TID PRN PRN Reason: Anxiety Last Admin: 11/02/20 17:33 Dose: 0.25 mg Documented by: Artificial Tears (Artificial Tears-Hypromellose Drops 15 Ml Btl) 2 drops BOTH EYES QID PRN PRN Reason: Dry Eye(s) Last Admin: 11/05/20 18:48 Dose: 2 drops Documented by: Ascorbic Acid (Ascorbic Acid 500 Mg Tab) 1,000 mg PO DAILY [facility] Last Admin: 11/06/20 08:44 Dose: 1,000 mg Documented by: Benzonatate (Benzonatate 100 Mg Cap) 100 mg PO TID PRN PRN Reason: Cough Last Admin: 10/30/20 18:15 Dose: 100 mg Documented by: Cholecalciferol (Cholecalciferol 25 Mcg (1000 Iu) Tablet) 100 mcg PO DAILY [facility] Last Admin: 11/06/20 08:44 Dose: 100 mcg Documented by: Dexamethasone Sodium Phosphate (Dexamethasone Sod Phosphate 10 Mg/Ml 1 Ml Vial) 6 mg IV BID [facility] Last Admin: 11/06/20 19:42 Dose: 6 mg Documented by: Enoxaparin Sodium (Enoxaparin 40 Mg/0.4 Ml Syringe) 40 mg SQ BID [facility] Last Admin: 11/06/20 19:42 Dose: 40 mg Documented by: Famotidine (Famotidine 20 Mg Tab) 20 mg PO BID [facility] Last Admin: 11/06/20 19:42 Dose: 20 mg Documented by: Dextrose/Sodium Chloride (Dextrose 5%-Ns Iv Soln) 1,000 mls @ 100 mls/hr IV .Q10H [facility] Last Admin: 11/06/20 15:21 Dose: 100 mls/hr Documented by: Metoprolol Tartrate (Metoprolol Tartrate 25 Mg Tab) 25 mg PO BID@0600,1800 [facility] Last Admin: 11/06/20 17:33 Dose: 25 mg Documented by: Multivitamins (Multivitamins, Thera 1 Each Tab) 1 each PO HS@1800 [facility] Last Admin: 11/06/20 17:33 Dose: 1 each Documented by: Naloxone HCl (Naloxone 0.4 Mg/Ml 1 Ml Vial) 0.2 mg IV Q2M PRN PRN Reason: Opioid Reversal Ondansetron HCl (Ondansetron Odt 4 Mg Tab) 4 mg PO Q8HR PRN PRN Reason: Nausea Last Admin: 11/01/20 19:23 Dose: 4 mg Documented by: Oxymetazoline HCl (Oxymetazoline 0.05% Nasl [place] 1 [place]oo Bottle) 2 spray NASAL BID [facility] Last Admin: 11/06/20 19:43 Dose: 2 spray Documented by: Senna/Docusate Sodium (Sennosides-Docusate Sodium 1 Each Tab) 1 each PO INIGUEZ [facility] Last Admin: 11/05/20 06:20 Dose: 1 each Documented by: Zinc Sulfate (Zinc Sulfate 220 Mg Cap) 220 mg PO DAILY [facility] Last Admin: 11/06/20 08:44 Dose: 220 mg Documented by: Past medical history: Spina bifida causing chronic paraplegia, chronic neurogenic bladder-patient does self-catheterization, multiple UTIs, GERD, chronic left hydroureter and hydronephrosis, left hip dislocated Past surgical history: See electronic chart from this admission including CPA TAX shunt Social history: . Does not smoke or drink alcohol. Family history: Grandparents had history of lung cancer VITAL SIGNS: GENERAL: Afebrile, 80, 20, 109/77, 91% on 15 L LUNGS: Respiratory rate increased, PSYCH: Alert and oriented x3; mood and affect normal NEUROLOGICAL: Cranial nerves grossly intact; no facial asymmetry, moving upper extremity Rest of the exam per pulmonary and nursing Investigations: Reviewed in context of the clinical picture and assessment and plan November 05: D-dimer 1.11 CRP 1.1 November 04: D-dimer on 0.11 potassium 4.2 CRP 1.1 November 03: D-dimer 1.03 LDH 2531 CRP 16.3 November 02: D-dimer 1.3 CRP 24.5 October 31: D-dimer 1.3 CRP 55.9 WBC 7 hemoglobin 13 platelets 13.6 lymphocytes 0.9 d-dimer 1.29 potassium 4 bun 25 creatinine 1.08 CRP 81.5 pro-calcitonin 0.14 EKG tracing personally reviewed by me-normal sinus rhythm with some abnormal T waves Chest x-ray film personally reviewed by me-, portable/bilateral infiltrates with some consolidation Chest CTA: 80s of consolidation and groundglass opacities bilateral throughout Assessment and plan: -Acute severe bilateral COVID 19 pneumonitis, with symptoms starting about 8 days before presentation- slow to respond on IV Decadron, Pepcid, IV Remdesivir/done, vitamin C vitamin D. Lovenox -Possible secondary bacterial infection/pneumonia on ceftriaxone-done Acute severe hypoxic respiratory failure due to COVID 19 slow to respond Initially high flow 15 L -currently on BiPAP/FiO2 decreased to 60%-back to 50 L today -Chronic spina bifida causing chronic paraplegia Follow clinically -Chronic paraplegia from spina bifida -Chronic neurogenic bladder, and a baseline patient straight caths 4 times a day Currently Liu catheter -Chronic neurogenic bladder requiring self-catheterization -Chronic medical debility patient is wheelchair bound. Discussed with the patient. Titrate down FiO2 as tolerated. Follow with pulmonary
[2020-11-07] MEDS: METOPROLOL TARTRATE 25 MG TAB PO SCH ×2 (06:39→17:28)
[2020-11-07] MEDS: DEXTROSE 5%-0.9% NACL 1,000 ML IV SCH (06:39)
--- NOTE | 2020-11-07 08:05 | XR ---
EXAMINATION TYPE: XR chest 1V portable DATE OF EXAM: 11/07/2020 COMPARISON: Chest x-ray 11/01/2020 HISTORY: Covid 19, shortness of breath TECHNIQUE: Single frontal view of the chest is obtained. FINDINGS: Bilateral airspace disease persists. Ventriculoperitoneal shunt tubing, postop changes, lo w lung volumes persist. There are overlying artifacts. Cardiac mediastinal silhouette unchanged, scol iotic curvature again seen. No pneumothorax or pleural effusion evident. IMPRESSION: Correlate for pneumonia, edema
[2020-11-07] MEDS: ASCORBIC ACID 500 MG TAB PO SCH (08:47)
[2020-11-07] MEDS: DEXAMETHASONE SOD PHOSPHATE 10 MG/ML 1 ML VIAL IV SCH ×2 (08:47→20:04)
[2020-11-07] MEDS: CHOLECALCIFEROL 25 MCG (1000 IU) TABLET PO SCH (08:47)
[2020-11-07] MEDS: ZINC SULFATE 220 MG CAP PO SCH (08:48)
[2020-11-07] MEDS: FAMOTIDINE 20 MG TAB PO SCH ×2 (08:49→20:03)
[2020-11-07] MEDS: OXYMETAZOLINE 0.05% NASL SPRAY 1 SPRAY BOTTLE NASAL SCH ×2 (08:49→20:04)
[2020-11-07] MEDS: ENOXAPARIN 40 MG/0.4 ML SYRINGE SQ SCH ×2 (08:49→20:03)
[2020-11-07 08:59] LABS: African American GFR (CKD) >90 (>60 ml/min/1.73 sqM); Anion Gap 4 mmol/L; Blood Urea Nitrogen 12 mg/dL (7-17); C Reactive Protein 0.5 mg/dL (<1.0); Carbon Dioxide 23 mmol/L (22-30); Chloride 105 mmol/L (98-107); Glucose 92 mg/dL (74-99); Non-African American GFR(CKD) >90 (>60 ml/min/1.73 sqM); Potassium 4.5 mmol/L (3.5-5.1); Sodium 132 mmol/L (137-145)
[2020-11-07] MEDS ORDERED: FUROSEMIDE 10 MG/ML 2 ML VIAL IV ONE (13:16)
--- NOTE | 2020-11-07 13:25 | P.PN ---
Subjective From records: This is a pleasant [address] Edward. Chronic stable medical conditions include chronic spina bifida causing paraplegia, chronic neurogenic bladder causing recurrent frequent UTIs patient does self-catheterization, GERD, chronic left hydroureter and hydronephrosis. Patient gets about with a wheelchair. chronic paraplegia. This is a patient started of with respiratory symptoms she states around November 23. Had some cough. Some chills and fevers. She also was in the ER because of her UTI. She then tested positive for COVID 19. She was then in the ER with a temperature 100.3 and a heart rate of 140. Pulse ox was 94% on room air. She was given Bactrim for a UTI and discharge. Progressively arrest. He symptoms have been getting worse. Has been febrile. Tachycardic. Tachypneic. Cough short of breath. Had a pulse ox of 75% on room air on presentation last night. Placed on high flow oxygen. Started on IV Decadron. IV Remdesivir. Patient was requiring high flow nasal cannula. Changed to BiPAP. Today: Patient this morning was changeover from BiPAP to 15 L high flow nasal cannula. Feeling better. Oral intake fairly good. Laying in bed. Some shortness of breath Subjective: 11/07/2020 This is a pleasant 51 days old female who presents with Covid pneumonia. Pulmonary team on the case. Patient breathing quietly and states that her shortness of breath is improving with little cuff and she denies chest pain or dyspnea. Labs from today shows slightly improved d-dimer to 0.9, still elevated lactate dehydrogenase at 2004 but C-reactive protein came back to normal. Discontinue IV fluids, keep the patient on dexamethasone 6 mg twice daily, Lovenox 40 mg twice daily, She is a status post remdesivir and actemra Objective - Vital Signs Vital signs: Vital Signs Temp 99.6 F 11/07/20 12:00 Pulse 91 11/07/20 12:00 Resp 20 11/07/20 12:00 BP 106/74 11/07/20 12:00 Pulse Ox 90 L 11/07/20 12:00 Intake & Output 11/06/20 11/07/20 11/07/20 18:59 06:59 18:59 Intake Total 240 180 Output Total 500 2500 Balance -260 -2500 180 Weight 77 kg 76.5 kg Intake: Oral 240 180 Output: Urine 500 2500 Other: Voiding Method Indwelling Catheter Indwelling Catheter Indwelling Catheter - Exam GENERAL: The patient is alert and oriented x3, not in any acute distress. Well developed, well nourished. HEENT: Pupils are round and equally reacting to light. EOMI. No scleral icterus. No conjunctival pallor. Normocephalic, atraumatic. No pharyngeal erythema. No thyromegaly. CARDIOVASCULAR: S1 and S2 present. No murmurs, rubs, or gallops. PULMONARY: Chest is clear to auscultation, no wheezing or crackles. ABDOMEN: Soft, nontender, nondistended, normoactive bowel sounds. No palpable organomegaly. MUSCULOSKELETAL: No joint swelling or deformity. EXTREMITIES: No cyanosis, clubbing, or pedal edema. NEUROLOGICAL: Gross neurological examination did not reveal any focal deficits. SKIN: No rashes. no petechiae. - Labs CBC & Chem 7: 10/30/20 00:51 11/07/20 08:22 Labs: Abnormal Lab Results - Last 24 Hours (Table) 11/07/20 11/07/20 11/07/20 Range/Units 08:22 08:22 08:22 D-Dimer 0.93 H (<0.60) mg/L FEU Sodium 132 L (137-145) mmol/L Creatinine 0.42 L (0.52-1.04) mg/dL Lactate Dehydrogenase 2004 H (313-618) U/L Assessment and Plan Assessment: -Acute severe bilateral COVID 19 pneumonitis, with symptoms starting about 8 days before presentation- slow to respond -Acute hypoxic respiratory failure due to COVID 19 slow to respond -Increased inflammatory markers -Chronic spina bifida causing chronic paraplegia -Chronic paraplegia from spina bifida -Chronic neurogenic bladder, and a baseline patient straight caths 4 times a day -Chronic neurogenic bladder requiring self-catheterization -Chronic medical debility patient is wheelchair bound. Plan: This is a pleasant 30 years old female who presents with Covid pneumonia and hypoxia. Continue with steroids, vitamin C, D and zinc, Lovenox. She is a status post remdesivir and actmra. Pulmonary team on the case Discontinue IV fluid. Labs and medication were reviewed.. Continue same treatment. Continue with symptomatic treatment. Resume home medication. Monitor lytes and vitals. DVT and GI prophylaxis. Further recommendationsas per clinical course of the patient DVT prophylaxis: Subcutaneous Lovenox GI Prophylaxis: Pepcid Prognosis is guarded
--- NOTE | 2020-11-07 16:32 | P.PN ---
Subjective Progress Note Date: 11/07/20 Principal diagnosis: Acute hypoxic respiratory failure Bilateral covid 19 pneumonia Sepsis Baseline condition of spina bifid a with recurrent chronic urinary tract infection 11/07/2020, patient seen eval examined during the rounds labs reviewed medications reviewed as per his status continued to improve, less cough and congestion patient breathing more easily, has been on 15 L high flow oxygen, off of BiPAP, however would recommend to continue to use BiPAP at nighttime during the day 5 L oxygen with titration as tolerated 11/06/2020, patient seen eval examined during the rounds she is in good spirits breathing comfortably denies any chest pain however hypoxia is still there be saturated on 6 L nasal cannulae into high 70s and low 80s, has been on BiPAP currently IPAP of 10:15 and EPAP of 10 with 60% oxygen, will attempt high flow oxygen aerosolysedfor oral care eating and for taking a break from BiPAP machine 11/05/2020, patient seen and evaluated examined labs reviewed medications reviewed overall respiratory status slightly better able to tolerate oxygen na irene cannula for short period time but most of time however still require BiPAP support, current BiPAP support include IPAP of 15 and EPAP of 5 with 60% oxygen, oxygenation is gradually being tapered down, patient remains on her usual therapy for COVID-19 pneumonia also status post Actemra, 11/04/2020, patient seen evflor examined during the rounds each and for breakfast and oral care has been switched from BiPAP 15/10 and 80% oxygen on with saturation was 95% to 6 L nasal cannula oxygen saturation remains stable 89% during evening, will continue BiPAP each night and when necessary during the day and high flow oxygen in between 11/03/2020, patient seen eval examined during rounds labs reviewed, status post a Actemera effusion respiratory status slightly better but however continued to require BiPAP machine, includes 15/10 with 80% oxygen sats are 95%, patient feels relatively better breathing has been easier, Luis on other therapies for COVID-19 pneumonia 11/02/2020, patient seen evflor reexamined during the rounds labs reviewed medications reviewed care plan discussed, denies any chest pain shortness of breath is present denies any cough or sputum production, due to constant desat uration and low oxygenation patient has been moved from fourth floor to third floor on a telemetry bed, patient has been placed on BiPAP, BiPAP setting is 15/10 with 100% oxygen, feels slightly less short of breath on that setting able to tolerate BiPAP fairly well hemodynamic status stable saturations 90%, 11/01/2020, patient seen eval examined during the rounds labs reviewed medications reviewed care plan discussed, oxygen saturation continue to drop down in last 12-48 hours has been on high flow oxygen and mask, desaturate up to 70-80%, has been placed on BiPAP 15/10 with that oxygen saturation improved to 85%, we will consult infectious disease for trial of Actemra given that patient most likely having cytokine ana luisa 10/31/2020, patient seen eval examined during the rounds very short of breath on activity and exertion, address saturation is 87 to 90% on high flow oxygen with nonrebreather mask, denies any cough or sputum production patient has been instructed to prone as much as possible Patient came into the hospital with progressive shortness of breath cough patient is currently on nonrebreather mask symptoms started about 2 days ago with progressive malaise and myalgia, prior medical history significant for a spina bifid a as well as renal calculi has history of multiple UTIs, on arrival noted to have fever of 101, her oxygen saturation was just 75% however improved to 89-90% on nonrebreather mask, her inflammatory parameters were elevated including LDH C-reactive protein, chest x-ray showed bilateral interstitial opacities consistent with [place] 19 pneumonia, computed tomography scan negative for pulmonary embolism, however confirm the findings on the x-ray, currently patient is being treated with IV Decadron, Objective - Vital Signs Vital signs: Vital Signs Temp 99.7 F H 11/07/20 15:17 Pulse 88 11/07/20 15:17 Resp 18 11/07/20 15:17 BP 108/64 11/07/20 15:17 Pulse Ox 93 L 11/07/20 15:17 Intake & Output 11/06/20 11/07/20 11/07/20 18:59 06:59 18:59 Intake Total 240 658 Output Total 500 2500 1500 Balance -840 -8164 -526 Weight 77 kg 76.5 kg Intake: Oral 240 658 Output: Urine 500 2500 1500 Other: Voiding Method Indwelling Catheter Indwelling Catheter Indwelling Catheter - Exam - Constitutional General appearance: average body habitus, cooperative, disheveled - EENT Eyes: PERRLA Ears: bilateral: normal - Neck Carotids: bilateral: upstroke normal - Respiratory Respiratory: bilateral: diminished, wheezing - Cardiovascular Rhythm: regular Heart sounds: normal: S1, S2 - Gastrointestinal General gastrointestinal: distended, soft - Neurologic Neurologic: CNII-XII intact - Musculoskeletal Musculoskeletal: gait normal, generalized weakness, strength equal bilaterally - Psychiatric Psychiatric: A&O x's 3, appropriate affect, intact judgment & insight - Labs CBC & Chem 7: 10/30/20 00:51 11/07/20 08:22 Labs: Abnormal Lab Results - Last 24 Hours (Table) 11/07/20 11/07/20 11/07/20 Range/Units 08:22 08:22 08:22 D-Dimer 0.93 H (<0.60) mg/L FEU Sodium 132 L (137-145) mmol/L Creatinine 0.42 L (0.52-1.04) mg/dL Lactate Dehydrogenase 2004 H (313-618) U/L Assessment and Plan Assessment: Acute hypoxic respiratory failure Sepsis due to COVID-19 pneumonia Bilateral covid 19 pneumonia Baseline condition of spina bifid a with recurrent chronic urinary tract inf ection, off of Bactrim Plan: patientis status post Actemera Supplemental oxygen with BiPAP alternating with the nasal cannula for meals and for break with BiPAP Deep breathing exercises incentive spirometry Prone positioning of possible IV steroids in the form of Decadron IV REMdesivir for 5 days Lovenox Further plan of care as per clinical response of the patient Time with Patient: Greater than 30
[2020-11-07] MEDS: MULTIVITAMINS, THERA 1 EACH TAB PO SCH (17:28)
--- NOTE | 2020-11-08 01:30 | PN ---
PROGRESS NOTE DATE OF SERVICE: 11/07/2020. REASON FOR FOLLOW UP: Covid 19 pneumonia. INTERVAL HISTORY: Patient is currently afebrile. The patient is breathing comfortably. However, the patient remains to be BIPAP dependent. The patient denies any chest pain. No worsening cough, abdominal pain. No diarrhea. PHYSICAL EXAMINATION: Blood pressure 108/64, pulse of 80, temperature 99.7, she is 93% on high-flow nasal cannula oxygen. General description: The patient is a young lying in bed in no distress. RESPIRATORY SYSTEM: Unlabored breathing, clear to auscultation anteriorly. HEART: S1, S2. Regular rate and rhythm. ABDOMEN soft, no tenderness. LABS: D. dimer is down to 0.93. CRP has normalized. DIAGNOSTIC IMPRESSION AND PLAN: Patient with acute COVID-19 pneumonia and respiratory failure in this patient with slow clinical response. The patient has completed Remdesivir and received Actemra, is currently on Dexamethasone, Lovenox, zinc, ascorbic acid to continue while monitoring clinical course closely. MMODL / IJN: [id number] /
[2020-11-08 06:24] LABS: Glucose,Whole Blood 91 mg/dL (75-99)
[2020-11-08] MEDS: METOPROLOL TARTRATE 25 MG TAB PO SCH ×2 (06:39→18:00)
[2020-11-08] MEDS: ASCORBIC ACID 500 MG TAB PO SCH (09:14)
[2020-11-08] MEDS: CHOLECALCIFEROL 25 MCG (1000 IU) TABLET PO SCH (09:14)
[2020-11-08] MEDS: FAMOTIDINE 20 MG TAB PO SCH ×2 (09:14→20:39)
[2020-11-08] MEDS: OXYMETAZOLINE 0.05% NASL SPRAY 1 SPRAY BOTTLE NASAL SCH ×2 (09:15→20:39)
[2020-11-08] MEDS: DEXAMETHASONE SOD PHOSPHATE 10 MG/ML 1 ML VIAL IV SCH ×2 (09:15→20:39)
[2020-11-08] MEDS: ZINC SULFATE 220 MG CAP PO SCH (09:15)
[2020-11-08] MEDS: ENOXAPARIN 40 MG/0.4 ML SYRINGE SQ SCH ×2 (09:16→20:39)
[2020-11-08 10:07] LABS: Basophils # (A) 0.1 k/uL (0-0.2); Basophils % (A) 0 %; Eosinophils % (A) 0 %; HCT 41.8 % (34.0-46.0); HGB 13.8 gm/dL (11.4-16.0); Lymphocytes # (A) 1.9 k/uL (1.0-4.8); Lymphocytes % (A) 12 %; MCH 29.1 pg (25.0-35.0); MCHC 33.1 g/dL (31.0-37.0); MCV 87.7 fL (80.0-100.0); Mean Platelet Volume 7.5; Monocytes # (A) 0.6 k/uL (0-1.0); Monocytes % (A) 4 %; Neutrophils # (A) 13.4 k/uL (1.3-7.7); Neutrophils % (A) 83 %; Platelet Count 499 k/uL (150-450); RBC 4.76 m/uL (3.80-5.40); RDW 14.7 % (11.5-15.5); WBC 16.2 k/uL (3.8-10.6)
[2020-11-08 10:25] LABS: African American GFR (CKD) >90 (>60 ml/min/1.73 sqM); Anion Gap 11 mmol/L; Blood Urea Nitrogen 29 mg/dL (7-17); Calcium 9.3 mg/dL (8.4-10.2); Carbon Dioxide 24 mmol/L (22-30); Chloride 99 mmol/L (98-107); Glucose 125 mg/dL (74-99); Non-African American GFR(CKD) >90 (>60 ml/min/1.73 sqM); Potassium 4.2 mmol/L (3.5-5.1); Sodium 134 mmol/L (137-145)
[2020-11-08 11:33] LABS: Glucose,Whole Blood 139 mg/dL (75-99)
--- NOTE | 2020-11-08 12:51 | P.PN ---
Subjective Progress Note Date: 11/08/20 Principal diagnosis: Acute hypoxic respiratory failure Bilateral covid 19 pneumonia Sepsis Baseline condition of spina bifid a with recurrent chronic urinary tract infection 11/08/2020, patient seen eval examined during the rounds labs reviewed medications reviewed care plan discussed, patient is on 15 L oxygen at night time goes on BiPAP, respiratory status stable patient however desaturate on lower FiO2 will follow clinical course closely continue current plan of care and treatment 11/07/2020, patient seen eval examined during the rounds labs reviewed medications reviewed as per his status continued to improve, less cough and congestion patient breathing more easily, has been on 15 L high flow oxygen, off of BiPAP, however would recommend to continue to use BiPAP at nighttime during the day 5 L oxygen with titration as tolerated 11/06/2020, patient seen eval examined during the rounds she is in good spirits breathing comfortably denies any chest pain however hypoxia is still there be saturated on 6 L nasal cannulae into high 70s and low 80s, has been on BiPAP currently IPAP of 10:15 and EPAP of 10 with 60% oxygen, will attempt high flow oxygen aerosolysedfor oral care eating and for taking a break from BiPAP machine 11/05/2020, patient seen and evaluated examined labs reviewed medications reviewed overall respiratory status slightly better able to tolerate oxygen nasal cannula for short period time but most of time however still require BiPAP support, current BiPAP support include IPAP of 15 and EPAP of 5 with 60% oxygen, oxygenation is gradually being tapered down, patient remains on her usual therapy for COVID-19 pneumonia also status post Actemra, 11/04/2020, patient seen eval examined during the rounds each and for breakfast and oral care has been switched from BiPAP 15/10 and 80% oxygen on with saturation was 95% to 6 L nasal cannula oxygen saturation remains stable 89% during evening, will continue BiPAP each night and when necessary during the day and high flow oxygen in between 11/03/2020, patient seen eval examined during rounds labs reviewed, status post a Actemera effusion respiratory status slightly better but however continued to require BiPAP machine, includes 15/10 with 80% oxygen sats are 95%, patient feels relatively better breathing has been easier, Luis on other therapies for COVID-19 pneumonia 11/02/2020, patient seen eval reexamined during the rounds labs reviewed medications reviewed care plan discussed, denies any chest pain shortness of breath is present denies any cough or sputum production, due to constant desaturation and low oxygenation patient has been moved from fourth floor to third floor on a telemetry bed, patient has been placed on BiPAP, BiPAP setting is 15/10 with 100% oxygen, feels slightly less short of breath on that setting able to tolerate BiPAP fairly well hemodynamic status stable saturations 90%, 11/01/2020, patient seen eval examined during the rounds labs reviewed med ications reviewed care plan discussed, oxygen saturation continue to drop down in last 12-48 hours has been on high flow oxygen and mask, desaturate up to 70- 80%, has been placed on BiPAP 15/10 with that oxygen saturation improved to 85%, we will consult infectious disease for trial of Actemra given that patient most likely having cytokine ana luisa 10/31/2020, patient seen eval examined during the rounds very short of breath on activity and exertion, address saturation is 87 to 90% on high flow oxygen with nonrebreather mask, denies any cough or sputum production patient has been instructed to prone as much as possible Patient came into the hospital with progressive shortness of breath cough patient is currently on nonrebreather mask symptoms started about 2 days ago with progressive malaise and myalgia, prior medical history significant for a spina bifid a as well as renal calculi has history of multiple UTIs, on arrival noted to have fever of 101, her oxygen saturation was just 75% however improved to 89-90% on nonrebreather mask, her inflammatory parameters were elevated including LDH C-reactive protein, chest x-ray showed bilateral interstitial opacities consistent with [place]an 19 pneumonia, computed tomography scan negative for pulmonary embolism, however confirm the findings on the x-ray, currently patient is being treated with IV Decadron, Objective - Vital Signs Vital signs: Vital Signs Temp 97.9 F 11/08/20 09:10 Pulse 103 H 11/08/20 11:46 Resp 20 11/08/20 12:32 BP 103/72 11/08/20 11:46 Pulse Ox 89 L 11/08/20 12:32 Intake & Output 11/07/20 11/08/20 11/08/20 18:59 06:59 18:59 Intake Total 898 240 Output Total 1950 100 Balance -1052 -100 240 Weight 77 kg Intake: Oral 898 240 Output: Urine 1950 100 Other: Voiding Method Indwelling Catheter Indwelling Catheter Indwelling Catheter - Exam - Constitutional General appearance: average body habitus, cooperative, disheveled - EENT Eyes: PERRLA Ears: bilateral: normal - Neck Carotids: bilateral: upstroke normal - Respiratory Respiratory: bilateral: diminished, wheezing - Cardiovascular Rhythm: regular Heart sounds: normal: S1, S2 - Gastrointestinal General gastrointestinal: distended, soft - Neurologic Neurologic: CNII-XII intact - Musculoskeletal Musculoskeletal: gait normal, generalized weakness, strength equal bilaterally - Psychiatric Psychiatric: A&O x's 3, appropriate affect, intact judgment & insight - Labs CBC & Chem 7: 11/08/20 08:20 11/08/20 08:20 Labs: Abnormal Lab Results - Last 24 Hours (Table) 11/08/20 11/08/20 11/08/20 Range/Units 08:20 08:20 11:32 WBC 16.2 H (3.8-10.6) k/uL Plt Count 499 H (150-450) k/uL Neutrophils # 13.4 H (1.3-7.7) k/uL Sodium 134 L (137-145) mmol/L BUN 29 H (7-17) mg/dL Glucose 125 H (74-99) mg/dL POC Glucose (mg/dL) 139 H (75-99) mg/dL Assessment and Plan Assessment: Acute hypoxic respiratory failure Sepsis due to COVID-19 pneumonia Bilateral covid 19 pneumonia Baseline condition of spina bifid a with recurrent chronic urinary tract infection, off of Bactrim Plan: patientis status post Actemera Supplemental oxygen with BiPAP alternating with the nasal cannula for meals and for break with BiPAP Deep breathing exercises incentive spirometry Prone positioning of possible IV steroids in the form of Decadron IV REMdesivir for 5 days Lovenox Further plan of care as per clinical response of the patient Time with Patient: Greater than 30
--- NOTE | 2020-11-08 14:39 | P.PN ---
Subjective From records: This is a pleasant [address] Edward. Chronic stable medical conditions include chronic spina bifida causing paraplegia, chronic neurogenic bladder causing recurrent frequent UTIs patient does self-catheterization, GERD, chronic left hydroureter and hydronephrosis. Patient gets about with a wheelchair. chronic paraplegia. This is a patient started of with respiratory symptoms she states around November 23. Had some cough. Some chills and fevers. She also was in the ER because of her UTI. She then tested positive for COVID 19. She was then in the ER with a temperature 100.3 and a heart rate of 140. Pulse ox was 94% on room air. She was given Bactrim for a UTI and discharge. Progressively arrest. He symptoms have been getting worse. Has been febrile. Tachycardic. Tachypneic. Cough short of breath. Had a pulse ox of 75% on room air on presentation last night. Placed on high flow oxygen. Started on IV Decadron. IV Remdesivir. Patient was requiring high flow nasal cannula. Changed to BiPAP. Today: Patient this morning was changeover from BiPAP to 15 L high flow nasal cannula. Feeling better. Oral intake fairly good. Laying in bed. Some shortness of breath Subjective: 11/07/2020 This is a pleasant 51 days old female who presents with Covid pneumonia. Pulmonary team on the case. Patient breathing quietly and states that her shortness of breath is improving with little cuff and she denies chest pain or dyspnea. Labs from today shows slightly improved d-dimer to 0.9, still elevated lactate dehydrogenase at 2004 but C-reactive protein came back to normal. Discontinue IV fluids, keep the patient on dexamethasone 6 mg twice daily, Lovenox 40 mg twice daily, She is a status post remdesivir and actemra 11/08/2020 11/08/2020 Patient is breathing at the same tachypnea/dyspnea with no worsening no improvement either. Patient is not in respiratory base and is with little cough. No chest pain or diarrhea. She still needs to 50 L/m of oxygen via nasal cannula, she wasn't sure if she wa s her BiPAP last night. Pulmonary on the case She remains on Lovenox 40 mg twice daily, multiple vitamins and dexamethasone 6 mg twice daily.Patient is status post remdesivir and tocizilumab . No change in medication Objective - Vital Signs Vital signs: Vital Signs Temp 97.9 F 11/08/20 09:10 Pulse 103 H 11/08/20 12:45 Resp 20 11/08/20 12:45 BP 103/72 11/08/20 11:46 Pulse Ox 89 L 11/08/20 12:32 Intake & Output 11/07/20 11/08/20 11/08/20 18:59 06:59 18:59 Intake Total 898 640 Output Total 1950 100 Balance -1052 -100 640 Weight 77 kg Intake: Oral 898 640 Output: Urine 1950 100 Other: Voiding Method Indwelling Catheter Indwelling Catheter Indwelling Catheter - Exam GENERAL: The patient is alert and oriented x3, not in any acute distress. Well developed, well nourished. HEENT: Pupils are round and equally reacting to light. EOMI. No scleral icterus. No conjunctival pallor. Normocephalic, atraumatic. No pharyngeal erythema. No thyromegaly. CARDIOVASCULAR: S1 and S2 present. No murmurs, rubs, or gallops. PULMONARY: Chest is clear to auscultation, no wheezing or crackles. ABDOMEN: Soft, nontender, nondistended, normoactive bowel sounds. No palpable organomegaly. MUSCULOSKELETAL: No joint swelling or deformity. EXTREMITIES: No cyanosis, clubbing, or pedal edema. NEUROLOGICAL: Gross neurological examination did not reveal any focal deficits. SKIN: No rashes. no petechiae. - Labs CBC & Chem 7: 11/08/20 08:20 11/08/20 08:20 Labs: Abnormal Lab Results - Last 24 Hours (Table) 11/08/20 11/08/20 11/08/20 Range/Units 08:20 08:20 11:32 WBC 16.2 H (3.8-10.6) k/uL Plt Count 499 H (150-450) k/uL Neutrophils # 13.4 H (1.3-7.7) k/uL Sodium 134 L (137-145) mmol/L BUN 29 H (7-17) mg/dL Glucose 125 H (74-99) mg/dL POC Glucose (mg/dL) 139 H (75-99) mg/dL Assessment and Plan Assessment: -Acute severe bilateral COVID 19 pneumonitis, with symptoms starting about 8 days before presentation- slow to respond -Acute hypoxic respiratory failure due to COVID 19 slow to respond -Increased inflammatory markers -Chronic spina bifida causing chronic paraplegia -Chronic paraplegia from spina bifida -Chronic neurogenic bladder, and a baseline patient straight caths 4 times a day -Chronic neurogenic bladder requiring self-catheterization -Chronic medical debility patient is wheelchair bound. Plan: This is a pleasant 30 years old female who presents with Covid pneumonia and hypoxia. Continue with steroids, vitamin C, D and zinc, Lovenox. She is a status post remdesivir and actmra. Pulmonary team on the case Discontinue IV fluid. Labs and medication were reviewed.. Continue same treatment. Continue with sym ptomatic treatment. Resume home medication. Monitor lytes and vitals. DVT and GI prophylaxis. Further recommendationsas per clinical course of the patient DVT prophylaxis: Subcutaneous Lovenox GI Prophylaxis: Pepcid Prognosis is guarded
[2020-11-08 16:46] LABS: Glucose,Whole Blood 151 mg/dL (75-99)
[2020-11-08] MEDS: MULTIVITAMINS, THERA 1 EACH TAB PO SCH (18:00)
[2020-11-08 20:30] LABS: Glucose,Whole Blood 93 mg/dL (75-99)
--- NOTE | 2020-11-08 23:58 | PN ---
PROGRESS NOTE DATE OF SERVICE: 11/08/2020 REASON FOR FOLLOWUP: COVID-19 pneumonia. INTERVAL HISTORY: Patient is currently afebrile. Patient has been off the BiPAP and is currently on nasal cannula oxygen. The patient denies having any chest pain, shortness of breath or cough. No abdominal pain or diarrhea. PHYSICAL EXAMINATION: Blood pressure 106/77 with a pulse of 96, temperature 97.9. She is 93% on 10 L nasal cannula. General description is a middle-aged female lying in bed in no distress. Respiratory system: Unlabored breathing. Clear to auscultation anteriorly. Heart S1, S2. Regular rate and rhythm. Abdomen soft. No tenderness. LABS: Hemoglobin is 13.1, white count 16.8. BUN of 29, creatinine 0.57. DIAGNOSTIC IMPRESSION/PLAN: 1. Patient with COVID-19 pneumonia in this patient who has shown overall clinical improvement. Currently being weaned off the oxygen. X-ray from yesterday did not show any worsening. The patient has completed her Remdesivir and has received Actemra. To continue with dexamethasone, Lovenox, zinc and ascorbic acid. 2. Patient elevated white count more likely steroid effect and we will monitor closely. 3. Continue supportive care. MMODL / IJN: [id number] /
[2020-11-09] MEDS: METOPROLOL TARTRATE 25 MG TAB PO SCH ×2 (05:40→19:06)
[2020-11-09 06:09] LABS: Glucose,Whole Blood 133 mg/dL (75-99)
[2020-11-09] MEDS: ASCORBIC ACID 500 MG TAB PO SCH (10:19)
[2020-11-09] MEDS: FAMOTIDINE 20 MG TAB PO SCH ×2 (10:19→20:28)
[2020-11-09] MEDS: DEXAMETHASONE SOD PHOSPHATE 10 MG/ML 1 ML VIAL IV SCH ×2 (10:19→20:28)
[2020-11-09] MEDS: ZINC SULFATE 220 MG CAP PO SCH (10:19)
[2020-11-09] MEDS: CHOLECALCIFEROL 25 MCG (1000 IU) TABLET PO SCH (10:19)
[2020-11-09] MEDS: ENOXAPARIN 40 MG/0.4 ML SYRINGE SQ SCH ×2 (10:19→20:28)
[2020-11-09] MEDS: OXYMETAZOLINE 0.05% NASL SPRAY 1 SPRAY BOTTLE NASAL SCH ×2 (11:41→20:29)
[2020-11-09 11:56] LABS: Glucose,Whole Blood 120 mg/dL (75-99)
--- NOTE | 2020-11-09 12:10 | P.PN ---
Subjective From records: This is a pleasant [address] Edward. Chronic stable medical conditions include chronic spina bifida causing paraplegia, chronic neurogenic bladder causing recurrent frequent UTIs patient does self-catheterization, GERD, chronic left hydroureter and hydronephrosis. Patient gets about with a wheelchair. chronic paraplegia. This is a patient started of with respiratory symptoms she states around November 23. Had some cough. Some chills and fevers. She also was in the ER because of her UTI. She then tested positive for COVID 19. She was then in the ER with a temperature 100.3 and a heart rate of 140. Pulse ox was 94% on room air. She was given Bactrim for a UTI and discharge. Progressively arrest. He symptoms have been getting worse. Has been febrile. Tachycardic. Tachypneic. Cough short of breath. Had a pulse ox of 75% on room air on presentation last night. Placed on high flow oxygen. Started on IV Decadron. IV Remdesivir. Patient was requiring high flow nasal cannula. Changed to BiPAP. Today: Patient this morning was changeover from BiPAP to 15 L high flow nasal cannula. Feeling better. Oral intake fairly good. Laying in bed. Some shortness of breath Subjective: 11/07/2020 This is a pleasant 51 days old female who presents with Covid pneumonia. Pulmonary team on the case. Patient breathing quietly and states that her shortness of breath is improving with little cuff and she denies chest pain or dyspnea. Labs from today shows slightly improved d-dimer to 0.9, still elevated lactate dehydrogenase at 2004 but C-reactive protein came back to normal. Discontinue IV fluids, keep the patient on dexamethasone 6 mg twice daily, Lovenox 40 mg twice daily, She is a status post remdesivir and actemra 11/08/2020 Patient is breathing at the same tachypnea/dyspnea with no worsening no i mprovement either. Patient is not in respiratory base and is with little cough. No chest pain or diarrhea. She still needs to 50 L/m of oxygen via nasal cannula, she wasn't sure if she was her BiPAP last night. Pulmonary on the case She remains on Lovenox 40 mg twice daily, multiple vitamins and dexamethasone 6 mg twice daily.Patient is status post remdesivir and tocizilumab . No change in medication 11/09/2020 Patient is awake and alert, she is breathing easier today. Her oxygen requirements dropped significantly from 15 L/m yesterday down to 10 L/m today, her oxygen saturation is 90% and slightly above. No labs from today, we will check her CBC which is elevated mostly due to steroid effect. She remains on Lovenox 40 mg twice daily, dexamethasone 6 mg twice daily and multiple vitamins. Objective - Vital Signs Vital signs: Vital Signs Temp 97.7 F 11/09/20 08:00 Pulse 79 11/09/20 08:00 Resp 20 11/09/20 08:00 BP 128/74 11/09/20 08:00 Pulse Ox 90 L 11/09/20 08:00 Intake & Output 11/08/20 11/09/20 11/09/20 18:59 06:59 18:59 Intake Total 640 100 250 Output Total 675 600 Balance -35 -500 250 Weight 79.5 kg Intake: IV 10 Invasive Line 3 10 Oral 640 100 240 Output: Urine 675 600 Other: Voiding Method Indwelling Catheter Indwelling Catheter Indwelling Catheter - Exam GENERAL: The patient is alert and oriented x3, not in any acute distress. Well developed, well nourished. HEENT: Pupils are round and equally reacting to light. EOMI. No scleral icterus. No conjunctival pallor. Normocephalic, atraumatic. No pharyngeal erythema. No thyromegaly. CARDIOVASCULAR: S1 and S2 present. No murmurs, rubs, or gallops. PULMONARY: Chest is clear to auscultation, no wheezing or crackles. ABDOMEN: Soft, nontender, nondistended, normoactive bowel sounds. No palpable organomegaly. MUSCULOSKELETAL: No joint swelling or deformity. EXTREMITIES: No cyanosis, clubbing, or pedal edema. NEUROLOGICAL: Gross neurological examination did not reveal any focal deficits. SKIN: No rashes. no petechiae. - Labs CBC & Chem 7: 11/08/20 08:20 11/08/20 08:20 Labs: Abnormal Lab Results - Last 24 Hours (Table) 11/08/20 11/09/20 11/09/20 Range/Units 16:45 06:07 11:54 POC Glucose (mg/dL) 151 H 133 H 120 H (75-99) mg/dL Assessment and Plan Assessment: -Acute severe bilateral COVID 19 pneumonitis, with symptoms starting about 8 days before presentation- slow to respond -Acute hypoxic respiratory failure due to COVID 19 slow to respond -Increased inflammatory markers -Chronic spina bifida causing chronic paraplegia -Chronic paraplegia from spina bifida -Chronic neurogenic bladder, and a baseline patient straight caths 4 times a day -Chronic neurogenic bladder requiring self-catheterization -Chronic medical debility patient is wheelchair bound. Plan: This is a pleasant 30 years old female who presents with Covid pneumonia and hypoxia. Continue with steroids, vitamin C, D and zinc, Lovenox. She is a status post remdesivir and actmra. Pulmonary team on the case Discontinue IV fluid. Labs and medication were reviewed.. Continue same treatment. Continue with symptomatic treatment. Resume home medication. Monitor lytes and vitals. DVT and GI prophylaxis. Further recommendationsas per clinical course of the patient DVT prophylaxis: Subcutaneous Lovenox GI Prophylaxis: Pepcid Prognosis is guarded
[2020-11-09 12:53] LABS: Basophils # (A) 0.1 k/uL (0-0.2); Basophils % (A) 0 %; Eosinophils # (A) 0.2 k/uL (0-0.7); Eosinophils % (A) 1 %; HCT 38.1 % (34.0-46.0); Lymphocytes # (A) 1.3 k/uL (1.0-4.8); Lymphocytes % (A) 10 %; MCH 30.5 pg (25.0-35.0); MCHC 34.2 g/dL (31.0-37.0); Mean Platelet Volume 7.1; Monocytes # (A) 0.5 k/uL (0-1.0); Monocytes % (A) 3 %; Neutrophils # (A) 11.4 k/uL (1.3-7.7); Neutrophils % (A) 84 %; Platelet Count 392 k/uL (150-450); RBC 4.28 m/uL (3.80-5.40); RDW 14.8 % (11.5-15.5); WBC 13.6 k/uL (3.8-10.6)
--- NOTE | 2020-11-09 15:54 | PN ---
PROGRESS NOTE DATE OF SERVICE: 11/09/2020 REASON FOR FOLLOWUP: COVID-19 pneumonia. INTERVAL HISTORY: The patient is currently afebrile. The patient is currently on nasal cannula oxygen. Denies having any chest pain or shortness of breath. Occasional cough. No nausea, no vomiting, no abdominal pain or diarrhea. PHYSICAL EXAMINATION: Blood pressure 128/74, pulse of 79, temperature 97.7. She is 98% on 10 L high-flow oxygen. General description is a middle-aged female lying in bed in no distress. RESPIRATORY SYSTEM: Unlabored breathing. Clear to auscultation anteriorly. HEART: S1, S2. Regular rate and rhythm. ABDOMEN: Soft. No tenderness. LABS: White count has come down to 13.6. DIAGNOSTIC IMPRESSION AND PLAN: 1. Patient with acute COVID-19 pneumonia in this patient who has completed her remdesivir and Actemra, currently on dexamethasone, Lovenox, zinc and ascorbic acid and slowly weaning her oxygen. 2. Elevated white count, more likely steroid effect. We will monitor closely. MMODL / IJN: [id number] /
--- NOTE | 2020-11-09 16:10 | P.PN ---
Subjective Progress Note Date: 11/09/20 Principal diagnosis: Acute hypoxic respiratory failure Bilateral covid 19 pneumonia Sepsis Baseline condition of spina bifid a with recurrent chronic urinary tract infection 11/09/2020, patient seen eval examined slowly FiO2 is being tapered down, remains short of breath on activity and exertion, able to bring it down to 10 L now since saturation is 90%, lowering further causes desaturation significant, patient has been BiPAP at nighttime, 11/08/2020, patient seen eval examined during the rounds labs reviewed medications reviewed care plan discussed, patient is on 15 L oxygen at night time goes on BiPAP, respiratory status stable patient however desaturate on lower FiO2 will follow clinical course closely continue current plan of care and treatment 11/07/2020, patient seen eval examined during the rounds labs reviewed medications reviewed as per his status continued to improve, less cough and congestion patient breathing more easily, has been on 15 L high flow oxygen, off of BiPAP, however would recommend to continue to use BiPAP at nighttime during the day 5 L oxygen with titration as tolerated 11/06/2020, patient seen eval examined during the rounds she is in good spirits breathing comfortably denies any chest pain however hypoxia is still there be saturated on 6 L nasal cannulae into high 70s and low 80s, has been on BiPAP currently IPAP of 10:15 and EPAP of 10 with 60% oxygen, will attempt high flow oxygen aerosolysedfor oral care eating and for taking a break from BiPAP machine 11/05/2020, patient seen and evaluated examined labs reviewed medications reviewed overall respiratory status slightly better able to tolerate oxygen nasal cannula for short period time but most of time however still require BiPAP support, current BiPAP support include IPAP of 15 and EPAP of 5 with 60% oxygen, oxygenation is gradually being tapered down, patient remains on her usual therapy for COVID-19 pneumonia also status post Actemra, 11/04/2020, patient seen eval examined during the rounds each and for breakfast and oral care has been switched from BiPAP 15/10 and 80% oxygen on with saturation was 95% to 6 L nasal cannula oxygen saturation remains stable 89% during evening, will continue BiPAP each night and when necessary during the day and high flow oxygen in between 11/03/2020, patient seen eval examined during rounds labs reviewed, status post a Actemera effusion respiratory status slightly better but however continued to require BiPAP machine, includes 15/10 with 80% oxygen sats are 95%, patient feels relatively better breathing has been easier, Luis on other therapies for COVID-19 pneumonia 11/02/2020, patient seen eval reexamined during the rounds labs reviewed medications reviewed care plan discussed, denies any chest pain shortness of breath is present denies any cough or sputum production, due to constant desaturation and low oxygenation patient has been moved from fourth floor to third floor on a telemetry bed, patient has been placed on BiPAP, BiPAP setting is 15/10 with 100% oxygen, feels slightly less short of breath on that setting able to tolerate BiPAP fairly well hemodynamic status stable saturations 90%, 11/01/2020, patient seen eval examined during the rounds labs reviewed medications reviewed care plan discussed, oxygen saturation continue to drop down in last 12-48 hours has been on high flow oxygen and mask, desaturate up to 70-80%, has been placed on BiPAP / with that oxygen saturation improved to 85%, we will consult infectious disease for trial of Actemra given that patient most likely having cytokine ana luisa 10/31/2020, patient seen eval examined during the rounds very short of breath on activity and exertion, address saturation is 87 to 90% on high flow oxygen with nonrebreather mask, denies any cough or sputum production patient has been instructed to prone as much as possible Patient came into the hospital with progressive shortness of breath cough patient is currently on nonrebreather mask symptoms started about 2 days ago with progressive malaise and myalgia, prior medical history significant for a spina bifid a as well as renal calculi has history of multiple UTIs, on arrival noted to have fever of 101, her oxygen saturation was just 75% however improved to 89-90% on nonrebreather mask, her inflammatory parameters were elevated including LDH C-reactive protein, chest x-ray showed bilateral interstitial opacities consistent with Coban 19 pneumonia, computed tomography scan negative for pulmonary embolism, however confirm the findings on the x-ray, currently patient is being treated with IV Decadron, Objective - Vital Signs Vital signs: Vital Signs Temp 97.7 F 11/09/20 08:00 Pulse 79 11/09/20 08:00 Resp 20 11/09/20 08:00 BP 128/74 11/09/20 08:00 Pulse Ox 90 L 11/09/20 08:00 Intake & Output 11/08/20 11/09/20 11/09/20 18:59 06:59 18:59 Intake Total 640 100 970 Output Total 675 600 350 Balance -35 -500 620 Weight 79.5 kg 79.5 kg Intake: IV 10 Invasive Line 3 10 Oral 640 100 960 Output: Urine 675 600 350 Other: Voiding Method Indwelling Catheter Indwelling Catheter Indwelling Catheter # Bowel Movements 1 - Exam - Constitutional General appearance: average body habitus, cooperative, disheveled - EENT Eyes: PERRLA Ears: bilateral: normal - Neck Carotids: bilateral: upstroke normal - Respiratory Respiratory: bilateral: diminished, wheezing - Cardiovascular Rhythm: regular Heart sounds: normal: S1, S2 - Gastrointestinal General gastrointestinal: distended, soft - Neurologic Neurologic: CNII-XII intact - Musculoskeletal Musculoskeletal: gait normal, generalized weakness, strength equal bilaterally - Psychiatric Psychiatric: A&O x's 3, appropriate affect, intact judgment & insight - Labs CBC & Chem 7: 11/09/20 12:15 11/08/20 08:20 Labs: Abnormal Lab Results - Last 24 Hours (Table) 11/08/20 11/09/20 11/09/20 Range/Units 16:45 06:07 11:54 WBC (3.8-10.6) k/uL Neutrophils # (1.3-7.7) k/uL POC Glucose (mg/dL) 151 H 133 H 120 H (75-99) mg/dL 11/09/20 Range/Units 12:15 WBC 13.6 H (3.8-10.6) k/uL Neutrophils # 11.4 H (1.3-7.7) k/uL POC Glucose (mg/dL) (75-99) mg/dL Assessment and Plan Assessment: Acute hypoxic respiratory failure Sepsis due to COVID-19 pneumonia Bilateral covid 19 pneumonia Baseline condition of spina bifid a with recurrent chronic urinary tract infection, off of Bactrim Plan: patientis status post Actemera Supplemental oxygen titrated down slowly as tolerated Deep breathing exercises incentive spirometry Prone positioning of possible IV steroids in the form of Decadron IV REMdesivir for 5 days Lovenox Further plan of care as per clinical response of the patient Time with Patient: Greater than 30
[2020-11-09 16:50] LABS: Glucose,Whole Blood 129 mg/dL (75-99)
[2020-11-09] MEDS: MULTIVITAMINS, THERA 1 EACH TAB PO SCH (19:06)
[2020-11-09 20:14] LABS: Glucose,Whole Blood 194 mg/dL (75-99)
[2020-11-10] MEDS: METOPROLOL TARTRATE 25 MG TAB PO SCH ×2 (05:17→17:46)
[2020-11-10 06:06] LABS: Glucose,Whole Blood 119 mg/dL (75-99)
[2020-11-10] MEDS: ASCORBIC ACID 500 MG TAB PO SCH (10:00)
[2020-11-10] MEDS: DEXAMETHASONE SOD PHOSPHATE 10 MG/ML 1 ML VIAL IV SCH ×2 (10:01→20:14)
[2020-11-10] MEDS: CHOLECALCIFEROL 25 MCG (1000 IU) TABLET PO SCH (10:01)
[2020-11-10] MEDS: FAMOTIDINE 20 MG TAB PO SCH ×2 (10:01→20:14)
[2020-11-10] MEDS: ENOXAPARIN 40 MG/0.4 ML SYRINGE SQ SCH ×2 (10:01→20:14)
[2020-11-10] MEDS: ZINC SULFATE 220 MG CAP PO SCH (10:02)
[2020-11-10] MEDS: OXYMETAZOLINE 0.05% NASL SPRAY 1 SPRAY BOTTLE NASAL SCH ×2 (10:02→20:15)
--- NOTE | 2020-11-10 11:53 | P.PN ---
Subjective Progress Note Date: 11/10/20 Principal diagnosis: Acute hypoxic respiratory failure Bilateral covid 19 pneumonia Sepsis Baseline condition of spina bifid a with recurrent chronic urinary tract infection 11/10/2020, patient seen eval examined during the rounds labs reviewed medications reviewed care plan discussed, respiratory status slightly better now, patient remains on supplemental oxygen was 6 L, tapering oxygen further causes desaturation, patient is still short of breath unable to complete full sentences however, 11/09/2020, patient seen eval examined slowly FiO2 is being tapered down, remain s short of breath on activity and exertion, able to bring it down to 10 L now since saturation is 90%, lowering further causes desaturation significant, patient has been BiPAP at nighttime, 11/08/2020, patient seen eval examined during the rounds labs reviewed medications reviewed care plan discussed, patient is on 15 L oxygen at night time goes on BiPAP, respiratory status stable patient however desaturate on lower FiO2 will follow clinical course closely continue current plan of care and treatment 11/07/2020, patient seen eval examined during the rounds labs reviewed medications reviewed as per his status continued to improve, less cough and congestion patient breathing more easily, has been on 15 L high flow oxygen, off of BiPAP, however would recommend to continue to use BiPAP at nighttime during the day 5 L oxygen with titration as tolerated 11/06/2020, patient seen eval examined during the rounds she is in good spirits breathing comfortably denies any chest pain however hypoxia is still there be saturated on 6 L nasal cannulae into high 70s and low 80s, has been on BiPAP cur rently IPAP of 10:15 and EPAP of 10 with 60% oxygen, will attempt high flow oxygen aerosolysedfor oral care eating and for taking a break from BiPAP machine 11/05/2020, patient seen and evaluated examined labs reviewed medications reviewed overall respiratory status slightly better able to tolerate oxygen nasal cannula for short period time but most of time however still require BiPAP support, current BiPAP support include IPAP of 15 and EPAP of 5 with 60% oxygen, oxygenation is gradually being tapered down, patient remains on her usual therapy for COVID-19 pneumonia also status post Actemra, 11/04/2020, patient seen eval examined during the rounds each and for breakfast and oral care has been switched from BiPAP 15/10 and 80% oxygen on with saturation was 95% to 6 L nasal cannula oxygen saturation remains stable 89% during evening, will continue BiPAP each night and when necessary during the day and high flow oxygen in between 11/03/2020, patient seen eval examined during rounds labs reviewed, status post a Actemera effusion respiratory status slightly better but however continued to require BiPAP machine, includes 15/10 with 80% oxygen sats are 95%, patient feels relatively better breathing has been easier, Luis on other therapies for COVID-19 pneumonia 11/02/2020, patient seen eval reexamined during the rounds labs reviewed medications reviewed care plan discussed, denies any chest pain shortness of breath is present denies any cough or sputum production, due to constant desaturation and low oxygenation patient has been moved from fourth floor to third floor on a telemetry bed, patient has been placed on BiPAP, BiPAP setting is 15/10 with 100% oxygen, feels slightly less short of breath on that setting able to tolerate BiPAP fairly well hemodynamic status stable saturations 90%, 11/01/2020, patient seen eval examined during the rounds labs reviewed medicatio ns reviewed care plan discussed, oxygen saturation continue to drop down in last 12-48 hours has been on high flow oxygen and mask, desaturate up to 70-80%, has been placed on BiPAP 15/10 with that oxygen saturation improved to 85%, we will consult infectious disease for trial of Actemra given that patient most likely having cytokine ana luisa 10/31/2020, patient seen eval examined during the rounds very short of breath on activity and exertion, address saturation is 87 to 90% on high flow oxygen with nonrebreather mask, denies any cough or sputum production patient has been instructed to prone as much as possible Patient came into the hospital with progressive shortness of breath cough deanne solorzano is currently on nonrebreather mask symptoms started about 2 days ago with progressive malaise and myalgia, prior medical history significant for a spina bifid a as well as renal calculi has history of multiple UTIs, on arrival noted to have fever of 101, her oxygen saturation was just 75% however improved to 89- 90% on nonrebreather mask, her inflammatory parameters were elevated including LDH C-reactive protein, chest x-ray showed bilateral interstitial opacities consistent with Coban 19 pneumonia, computed tomography scan negative for pulmonary embolism, however confirm the findings on the x-ray, currently patient is being treated with IV Decadron, Objective - Vital Signs Vital signs: Vital Signs Temp 98.1 F 11/10/20 05:18 Pulse 91 11/10/20 05:18 Resp 19 11/10/20 05:18 BP 113/79 11/10/20 05:18 Pulse Ox 90 L 11/10/20 05:18 Intake & Output 11/09/20 11/10/20 11/10/20 18:59 06:59 18:59 Intake Total 1457 20 220 Output Total 626 300 Balance 831 -280 220 Weight 79.5 kg 81 kg Intake: IV 20 20 Invasive Line 3 20 20 Oral 1437 220 Output: Urine 625 300 Stool 1 Other: Voiding Method Indwelling Catheter Indwelling Catheter # Bowel Movements 1 1 - Exam - Constitutional General appearance: average body habitus, cooperative, disheveled - EENT Eyes: PERRLA Ears: bilateral: normal - Neck Carotids: bilateral: upstroke normal - Respiratory Respiratory: bilateral: diminished, wheezing - Cardiovascular Rhythm: regular Heart sounds: normal: S1, S2 - Gastrointestinal General gastrointestinal: distended, soft - Neurologic Neurologic: CNII-XII intact - Musculoskeletal Musculoskeletal: gait normal, generalized weakness, strength equal bilaterally - Psychiatric Psychiatric: A&O x's 3, appropriate affect, intact judgment & insight - Labs CBC & Chem 7: 11/09/20 12:15 11/08/20 08:20 Labs: Abnormal Lab Results - Last 24 Hours (Table) 11/09/20 11/09/20 11/09/20 Range/Units 11:54 12:15 16:49 WBC 13.6 H (3.8-10.6) k/uL Neutrophils # 11.4 H (1.3-7.7) k/uL POC Glucose (mg/dL) 120 H 129 H (75-99) mg/dL 11/09/20 11/10/20 Range/Units 20:11 06:04 WBC (3.8-10.6) k/uL Neutrophils # (1.3-7.7) k/uL POC Glucose (mg/dL) 194 H 119 H (75-99) mg/dL Assessment and Plan Assessment: Acute hypoxic respiratory failure Sepsis due to COVID-19 pneumonia Bilateral covid 19 pneumonia Baseline condition of spina bifid a with recurrent chronic urinary tract infection, off of Bactrim Plan: patientis status post Actemera Supplemental oxygen titrated down slowly as tolerated Deep breathing exercises incentive spirometry Prone positioning of possible IV steroids in the form of Decadron IV REMdesivir for 5 days Lovenox Further plan of care as per clinical response of the patient Time with Patient: Greater than 30
[2020-11-10 11:58] LABS: Glucose,Whole Blood 94 mg/dL (75-99)
--- NOTE | 2020-11-10 12:16 | P.PN ---
Subjective From records: This is a pleasant [address] Edward. Chronic stable medical conditions include chronic spina bifida causing paraplegia, chronic neurogenic bladder causing recurrent frequent UTIs patient does self-catheterization, GERD, chronic left hydroureter and hydronephrosis. Patient gets about with a wheelchair. chronic paraplegia. This is a patient started of with respiratory symptoms she states around November 23. Had some cough. Some chills and fevers. She also was in the ER because of her UTI. She then tested positive for COVID 19. She was then in the ER with a temperature 100.3 and a heart rate of 140. Pulse ox was 94% on room air. She was given Bactrim for a UTI and discharge. Progressively arrest. He symptoms have been getting worse. Has been febrile. Tachycardic. Tachypneic. Cough short of breath. Had a pulse ox of 75% on room air on presentation last night. Placed on high flow oxygen. Started on IV Decadron. IV Remdesivir. Patient was requiring high flow nasal cannula. Changed to BiPAP. Today: Patient this morning was changeover from BiPAP to 15 L high flow nasal cannula. Feeling better. Oral intake fairly good. Laying in bed. Some shortness of breath Subjective: 11/07/2020 This is a pleasant 51 days old female who presents with Covid pneumonia. Pulmonary team on the case. Patient breathing quietly and states that her shortness of breath is improving with little cuff and she denies chest pain or dyspnea. Labs from today shows slightly improved d-dimer to 0.9, still elevated lactate dehydrogenase at 2004 but C-reactive protein came back to normal. Discontinue IV fluids, keep the patient on dexamethasone 6 mg twice daily, Lovenox 40 mg twice daily, She is a status post remdesivir and actemra 11/08/2020 Patient is breathing at the same tachypnea/dyspnea with no worsening no i mprovement either. Patient is not in respiratory base and is with little cough. No chest pain or diarrhea. She still needs to 50 L/m of oxygen via nasal cannula, she wasn't sure if she was her BiPAP last night. Pulmonary on the case She remains on Lovenox 40 mg twice daily, multiple vitamins and dexamethasone 6 mg twice daily.Patient is status post remdesivir and tocizilumab . No change in medication 11/09/2020 Patient is awake and alert, she is breathing easier today. Her oxygen requirements dropped significantly from 15 L/m yesterday down to 10 L/m today, her oxygen saturation is 90% and slightly above. No labs from today, we will check her CBC which is elevated mostly due to steroid effect. She remains on Lovenox 40 mg twice daily, dexamethasone 6 mg twice daily and multiple vitamins. 11/10/2020 patient reports improvement in her breathing pattern, no significant coughing. No chest pain or abdominal pain. No diarrhea. Patient is asking when she can go home soon. Patient still needs follow-up to 6 L of oxygen per minute to keep her oxygen saturation low 97. Melatonin for now with the same treatment. No labs for today. She is continued to be on Lovenox 40 mg twice daily, multiple vitamins, dexamethasone 6 mg twice daily.Patient is status post remdesivir and tocizilumab . Objective - Vital Signs Vital signs: Vital Signs Temp 97.6 F 11/10/20 12:00 Pulse 75 11/10/20 12:00 Resp 18 11/10/20 12:00 BP 115/81 11/10/20 12:00 Pulse Ox 93 L 11/10/20 12:00 Intake & Output 11/09/20 11/10/20 11/10/20 18:59 06:59 18:59 Intake Total 1457 20 1067 Output Total 542 298 5953 Balance 831 -280 -85 Weight 79.5 kg 81 kg Intake: IV 20 20 10 Invasive Line 3 20 20 10 Oral 1437 1057 Output: Urine 141 389 2397 Uretheral (Liu) 1152 Stool 1 Other: Voiding Method Indwelling Catheter Indwelling Catheter Indwelling Catheter # Bowel Movements 1 1 - Exam GENERAL: The patient is alert and oriented x3, not in any acute distress. Well developed, well nourished. HEENT: Pupils are round and equally reacting to light. EOMI. No scleral icterus. No conjunctival pallor. Normocephalic, atraumatic. No pharyngeal erythema. No thyromegaly. CARDIOVASCULAR: S1 and S2 present. No murmurs, rubs, or gallops. PULMONARY: Chest is clear to auscultation, no wheezing or crackles. ABDOMEN: Soft, nontender, nondistended, normoactive bowel sounds. No palpable organomegaly. MUSCULOSKELETAL: No joint swelling or deformity. EXTREMITIES: No cyanosis, clubbing, or pedal edema. NEUROLOGICAL: Gross neurological examination did not reveal any focal deficits. SKIN: No rashes. no petechiae. - Labs CBC & Chem 7: 11/09/20 12:15 11/08/20 08:20 Labs: Abnormal Lab Results - Last 24 Hours (Table) 11/09/20 11/09/20 11/09/20 Range/Units 12:15 16:49 20:11 WBC 13.6 H (3.8-10.6) k/uL Neutrophils # 11.4 H (1.3-7.7) k/uL POC Glucose (mg/dL) 129 H 194 H (75-99) mg/dL 11/10/20 Range/Units 06:04 WBC (3.8-10.6) k/uL Neutrophils # (1.3-7.7) k/uL POC Glucose (mg/dL) 119 H (75-99) mg/dL Assessment and Plan Assessment: -Acute severe bilateral COVID 19 pneumonitis, with symptoms starting about 8 days before presentation- slow to respond -Acute hypoxic respiratory failure due to COVID 19 slow to respond -Increased inflammatory markers -Chronic spina bifida causing chronic paraplegia -Chronic paraplegia from spina bifida -Chronic neurogenic bladder, and a baseline patient straight caths 4 times a day -Chronic neurogenic bladder requiring self-catheterization -Chronic medical debility patient is wheelchair bound. Plan: This is a pleasant 30 years old female who presents with Covid pneumonia and hypoxia. Continue with steroids, vitamin C, D and zinc, Lovenox. She is a status post remdesivir and actmra. Pulmonary team on the case Discontinue IV fluid. Labs and medication were reviewed.. Continue same treatment. Continue with symptomatic treatment. Resume home medication. Monitor lytes and vitals. DVT and GI prophylaxis. Further recommendationsas per clinical course of the patient DVT prophylaxis: Subcutaneous Lovenox GI Prophylaxis: Pepcid Prognosis is guarded
[2020-11-10 16:53] LABS: Glucose,Whole Blood 116 mg/dL (75-99)
[2020-11-10] MEDS: MULTIVITAMINS, THERA 1 EACH TAB PO SCH (17:46)
[2020-11-10 20:02] LABS: Glucose,Whole Blood 105 mg/dL (75-99)
[2020-11-11] MEDS: METOPROLOL TARTRATE 25 MG TAB PO SCH ×2 (05:58→17:27)
--- NOTE | 2020-11-11 06:03 | PN ---
PROGRESS NOTE DATE OF SERVICE: 11/10/2020 REASON FOR FOLLOWUP: COVID-19 pneumonia. INTERVAL HISTORY: Patient remains to be afebrile. The patient is breathing more comfortably. The patient denies having any chest pain, shortness of breath. Minimal cough. No nausea, no vomiting. No abdominal pain. No diarrhea. PHYSICAL EXAMINATION: VITAL SIGNS: Blood pressure 109/74 with a pulse of 100, temperature 98.1, she is 92% on 4 L nasal cannula. GENERAL DESCRIPTION: Patient is a middle-aged female lying in bed in no distress. LUNGS: Unlabored breathing, decreased intensity of breath sounds. No wheeze. HEART: S1-S2, regular rate and rhythm. ABDOMEN: Soft, no tenderness. LABS: No new labs have been obtained today. DIAGNOSTIC IMPRESSION AND PLAN: Patient with acute COVID-19 pneumonia in this patient who has completed her remdesivir therapy and also received Actemra. Patient is covered with Decadron, Lovenox, zinc and ascorbic acid, to continue. Will monitor clinical course closely. Continue supportive care. MMODL / IJN: [id number] /
[2020-11-11 06:18] LABS: Glucose,Whole Blood 92 mg/dL (75-99)
--- NOTE | 2020-11-11 08:47 | P.PN ---
Subjective Progress Note Date: 11/11/20 Principal diagnosis: Acute hypoxic respiratory failure Bilateral covid 19 pneumonia Sepsis Baseline condition of spina bifid a with recurrent chronic urinary tract infection 11/10/2020, patient seen and evaluated examined her respiratory status slowly improving, does not however tapered down to less than 5 L, sats are in low 90s, ongoing shortness of breath on exertion is present denies any chest pain, 11/10/2020, patient seen eval examined during the rounds labs reviewed medications reviewed care plan discussed, respiratory status slightly better now, patient remains on supplemental oxygen was 6 L, tapering oxygen further causes desaturation, patient is still short of breath unable to complete full sentences however, 11/09/2020, patient seen eval examined slowly FiO2 is being tapered down, remains short of breath on activity and exertion, able to bring it down to 10 L now since saturation is 90%, lowering further causes desaturation significant, patient has been BiPAP at nighttime, 11/08/2020, patient seen eval examined during the rounds labs reviewed medic ations reviewed care plan discussed, patient is on 15 L oxygen at night time goes on BiPAP, respiratory status stable patient however desaturate on lower FiO2 will follow clinical course closely continue current plan of care and treatment 11/07/2020, patient seen eval examined during the rounds labs reviewed medications reviewed as per his status continued to improve, less cough and congestion patient breathing more easily, has been on 15 L high flow oxygen, off of BiPAP, however would recommend to continue to use BiPAP at nighttime during the day 5 L oxygen with titration as tolerated 11/06/2020, patient seen eval examined during the rounds she is in good spirits breathing comfortably denies any chest pain however hypoxia is still there be saturated on 6 L nasal cannulae into high 70s and low 80s, has been on BiPAP currently IPAP of 10:15 and EPAP of 10 with 60% oxygen, will attempt high flow oxygen aerosolysedfor oral care eating and for taking a break from BiPAP machine 11/05/2020, patient seen and evaluated examined labs reviewed medications reviewed overall respiratory status slightly better able to tolerate oxygen nasal cannula for short period time but most of time however still require BiPAP support, current BiPAP support include IPAP of 15 and EPAP of 5 with 60% oxygen, oxygenation is gradually being tapered down, patient remains on her usual therapy for COVID-19 pneumonia also status post Actemra, 11/04/2020, patient seen eval examined during the rounds each and for breakfast and oral care has been switched from BiPAP 15/10 and 80% oxygen on with saturation was 95% to 6 L nasal cannula oxygen saturation remains stable 89% during evening, will continue BiPAP each night and when necessary during the day and high flow oxygen in between 11/03/2020, patient seen eval examined during rounds labs reviewed, status post a Actemera effusion respiratory status slightly better but however continued to require BiPAP machine, includes 15/10 with 80% oxygen sats are 95%, patient feels relatively better breathing has been easier, Luis on other therapies for COVID-19 pneumonia 11/02/2020, patient seen eval reexamined during the rounds labs reviewed medications reviewed care plan discussed, denies any chest pain shortness of breath is present denies any cough or sputum production, due to constant desaturation and low oxygenation patient has been moved from fourth floor to third floor on a telemetry bed, patient has been placed on BiPAP, BiPAP setting is 15/10 with 100% oxygen, feels slightly less short of breath on that setting able to tolerate BiPAP fairly well hemodynamic status stable saturations 90%, 11/01/2020, patient seen eval examined during the rounds labs reviewed medications reviewed care plan discussed, oxygen saturation continue to drop down in last 12-48 hours has been on high flow oxygen and mask, desaturate up to 70-80%, has been placed on BiPAP 15/10 with that oxygen saturation improved to 85%, we will consult infectious disease for trial of Actemra given that patient most likely having cytokine ana luisa 10/31/2020, patient seen eval examined during the rounds very short of breath on activity and exertion, address saturation is 87 to 90% on high flow oxygen with nonrebreather mask, denies any cough or sputum production patient has been instructed to prone as much as possible Patient came into the hospital with progressive shortness of breath cough patient is currently on nonrebreather mask symptoms started about 2 days ago with progressive malaise and myalgia, prior medical history significant for a spina bifid a as well as renal calculi has history of multiple UTIs, on arrival noted to have fever of 101, her oxygen saturation was just 75% however improved to 89-90% on nonrebreather mask, her inflammatory parameters were elevated including LDH C-reactive protein, chest x-ray showed bilateral interstitial opacities consistent with Coban 19 pneumonia, computed tomography scan negative for pulmonary embolism, however confirm the findings on the x-ray, currently patient is being treated with IV Decadron, Objective - Vital Signs Vital signs: Vital Signs Temp 98.1 F 11/11/20 05:57 Pulse 91 11/11/20 05:57 Resp 17 11/11/20 05:57 BP 120/70 11/11/20 05:57 Pulse Ox 91 L 11/11/20 05:57 Intake & Output 11/10/20 11/11/20 11/11/20 18:59 06:59 18:59 Intake Total 2451 20 360 Output Total 1652 750 Balance 799 -730 360 Weight 64 kg Intake: IV 20 20 Invasive Line 3 20 20 Oral 2431 360 Output: Urine 1652 750 Uretheral (Liu) 1152 Other: Voiding Method Indwelling Catheter Indwelling Catheter # Bowel Movements 1 - Exam - Constitutional General appearance: average body habitus, cooperative, disheveled - EENT Eyes: PERRLA Ears: bilateral: normal - Neck Carotids: bilateral: upstroke normal - Respiratory Respiratory: bilateral: diminished, wheezing - Cardiovascular Rhythm: regular Heart sounds: normal: S1, S2 - Gastrointestinal General gastrointestinal: distended, soft - Neurologic Neurologic: CNII-XII intact - Musculoskeletal Musculoskeletal: gait normal, generalized weakness, strength equal bilaterally - Psychiatric Psychiatric: A&O x's 3, appropriate affect, intact judgment & insight - Labs CBC & Chem 7: 11/09/20 12:15 11/08/20 08:20 Labs: Abnormal Lab Results - Last 24 Hours (Table) 11/10/20 11/10/20 Range/Units 16:50 20:00 POC Glucose (mg/dL) 116 H 105 H (75-99) mg/dL Assessment and Plan Assessment: Acute hypoxic respiratory failure Sepsis due to COVID-19 pneumonia Bilateral covid 19 pneumonia Baseline condition of spina bifid a with recurrent chronic urinary tract infection, off of Bactrim Plan: patientis status post Actemera Supplemental oxygen titrated down slowly as tolerated Deep breathing exercises incentive spirometry Prone positioning of possible IV steroids in the form of Decadron IV REMdesivir for 5 days Lovenox Further plan of care as per clinical response of the patient Time with Patient: Greater than 30
[2020-11-11] MEDS: ENOXAPARIN 40 MG/0.4 ML SYRINGE SQ SCH ×2 (10:36→20:32)
[2020-11-11] MEDS: CHOLECALCIFEROL 25 MCG (1000 IU) TABLET PO SCH (10:36)
[2020-11-11] MEDS: OXYMETAZOLINE 0.05% NASL SPRAY 1 SPRAY BOTTLE NASAL SCH ×2 (10:37→20:32)
[2020-11-11] MEDS: ASCORBIC ACID 500 MG TAB PO SCH (10:37)
[2020-11-11] MEDS: FAMOTIDINE 20 MG TAB PO SCH ×2 (10:37→20:31)
[2020-11-11] MEDS: DEXAMETHASONE SOD PHOSPHATE 10 MG/ML 1 ML VIAL IV SCH ×2 (10:37→20:31)
[2020-11-11] MEDS: ZINC SULFATE 220 MG CAP PO SCH (10:37)
[2020-11-11 11:34] LABS: Glucose,Whole Blood 116 mg/dL (75-99)
--- NOTE | 2020-11-11 15:13 | P.CON ---
Consult Note - . Consult date: 11/11/20 Assessment/Plan:: This is a 30-year-old female 0 last period 3 weeks ago who presented to the hospital 12 days ago with symptomatic coated. She was admitted to the hospital and remains here. She has a history of paraplegia secondary to myelomeningocele. She has straight cathed since age 4. On the floor, nursing team noticed abdominal distention. Bedside urine scan was done and it was suggested that the patient had 1000 mL of urine despite an indwelling Liu catheter. I was called for consultation to rule out what was thought to be a uterine prolapse. 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 Patient is , she states she is sexually active and using nothing for contraception. A is not desired at this time. Past medical history is significant for spina bifida at , myelomeningocele corrected with multiple surgeries. Patient also has a history of MRSA of the left ankle. Past surgical history includes multiple surgeries, please see chart for details. ALLERGIES include latex to which reports a fever. Current medications multiple, please see the chart. On examination patient is 5 foot 4 inches, 150 pounds, she is lying comfortably in the bed with habitus consistent with myelomeningocele. The abdomen is softly distended, there is no rigidity, no rebound, no guarding, no pain. On pelvic examination there is a minimal amount of cervical prolapse, the cervix is approximately 1.5 cm up the vaginal vault. Uterus is small, mobile, anteverted, nontender. Adnexa are negative bilaterally. Rectal examination is negative, no rectocele is noted and no cystocele. There is soft brown stool noted in the undergarment. Dr. Cruz is also at the bedside, irrigation of the Liu is performed. There appears to be no blockage. Impression 30-year-old with a long-standing history of myelomeningocele and paraplegia. There appears to be an ileus which likely is distending the abdominal wall and distorting the image on uro-scan at the bedside. No obvious urinary retention is noted. P Plan: Patient is not a candidate for vaginal surgery, there is no uterine prolapse. She is not in need of a pessary. Liu catheter irrigation will be performed. Please see Dr. Cruz's dictated consultation for further detail. Thank you for the consultation. The side. I am not recommending in this clinical scenario. Patient states she has discussed this with her other medical providers and is following with him. I am recommending minimal condom use at this time is sexual activity is desired. Time with patient at the bedside 15 minutes, total time of consultation 30 minutes.
--- NOTE | 2020-11-11 15:20 | P.GSCN ---
History of Present Illness Consult date: 11/11/20 History of present illness: I was asked to see this 30-year-old female for urine retention. She is in the hospital with abdominal pain coronavirus pneumonia.. The patient has myelomeningocele. She has been on intermittent catheterization since age 4. She has had 2 bladder augmentations in the past. The nursing staff place a catheter and stated it was not draining. The bladder scanner for what was described as 1000 mL. They stated that she had vaginal prolapse. For this reason we are asked see the patient and make sure the catheters in place, irrigating as well as having prosecuting attorney see her for vaginal prolapse. has evaluated the patient and her note has been dictated. There is not vaginal prolapse. Upon arrival to the patient's room there is urine in the catheter that is clear. Her abdomen is distended. Her habitus is quite typical for myelomeningocele. It is more distended than average. 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 covid 11/08 History of Any Multi-Drug Resistant Organisms: MRSA Year Discovered:: 12/05/18 MDRO Source:: Left Ankle Past Surgical History: Back Surgery, Bladder Surgery, Hernia Repair, Orthopedic Surgery Additional Past Surgical History / Comment(s): Multi orthopedic surgeries since childhood. 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 Past Anesthesia/Blood Transfusion Reactions: No Reported Reaction Past Psychological History: No Psychological Hx Reported Smoking Status: Never smoker Past Alcohol Use History: None Reported Past Drug Use History: None Reported - Past Family History Mother Family Medical History: Cancer Additional Family Medical History / Comment(s): grandparents - lung Father History Unknown: Yes Medications and Allergies Home Medications Medication Instructions Recorded Confirmed Type Metoprolol Tartrate [Lopressor] 25 mg PO BID@0600,1800 07/09/17 10/30/20 History Multivitamins, Thera [Multivitamin 1 tab PO HS@1800 09/12/17 10/30/20 History (formulary)] Ondansetron Odt [Zofran Odt] 4 mg PO Q8HR PRN #14 tab 10/24/20 10/30/20 Rx Sulfamethox-Tmp 800-160Mg [Bactrim 1 tab PO Q12HR 10/30/20 10/30/20 History Ds] Allergies Allergy/AdvReac Type Severity Reaction Status Date / Time latex AdvReac Fever from Verified 10/30/20 08:15 cath Surgical - Exam Vital Signs Temp Pulse Resp BP Pulse Ox 101.2 F H 139 H 26 H 109/60 75 L 10/29/20 23:41 10/29/20 23:41 10/29/20 23:41 10/29/20 23:41 10/29/20 23:41 - General well developed, well nourished, no distress - Eyes PERRL, normal ocular movement - ENT no hearing loss - Neck trachea midline - Respiratory normal expansion, normal respiratory effort - Cardiovascular Rhythm: regular - Abdomen The abdomen is distended. It is soft. It is more distended than usual. She has a typical abdominal appearance of a myelomeningocele. She has multiple scars on her lower abdomen. - Genitourinary She has normal extremities. The cervix has descended. There is a Liu catheter in place. Bimanual exam shows catheter is in the bladder. Irrigate freely. Some mucosal debris is noted. - Integumentary no rash, no growths - Neurologic The patient has diminished lower extremity sensation and movement as typical with myelomeningocele. - Psychiatric oriented to time, oriented to person, oriented to place, speech is normal, memory intact Results - Labs 11/09/20 12:15 11/08/20 08:20 Abnormal Lab Results - Last 24 Hours (Table) 11/10/20 11/10/20 11/11/20 Range/Units 16:50 20:00 11:31 POC Glucose (mg/dL) 116 H 105 H 116 H (75-99) mg/dL Assessment and Plan Assessment: Impression: Neurogenic bladder on intermittent catheterization. Bilateral pneumonia due to coronavirus. Questionable urine retention versus abdominal ileus. Recommendations: It is uncertain to me whether the patient is actually in urine retention or whether the perceived urine retention is due to an ileus from the pneumonia. Bladder scans can be mistaken as a full bladder when the patient has a notable ileus. The patient could be in retention due to mucosal debris in the catheter. The catheter can be irrigated as needed. If necessary a larger catheter should be placed. The catheters appropriately placed in the bladder. I irrigated the catheter freely. I'll be glad to see the patient is indicated. She can resume self-catheterization when medically able to. Time with Patient: Greater than 30
--- NOTE | 2020-11-11 15:21 | P.PCN ---
Date of Procedure: 11/11/20 Preoperative Diagnosis: Urine retention, neurogenic bladder, pneumonia secondary to coronavirus Postoperative Diagnosis: Same Procedure(s) Performed: Bladder irrigation Pathology: none sent Condition: stable Indications for Procedure: Questionable urine retention. The patient is in the hospital scrotum virus pneumonia. There is a question of urine retention. We're asked see the patient. Description of Procedure: A bimanual examination identifies a catheter to be in the bladder. I disconnected the catheter and irrigate it with a 60 mL Arlen syringe and it appears to irrigate freely. There is some mucosal debris in the bladder which is consistent with a bladder augmentation that she received as an due to her myelomeningocele. The catheter can be changed at any time and a 20-Greenlandic catheter meet irrigate more freely than a 16-Greenlandic catheter necessary. This is been discussed with the nursing staff.
[2020-11-11 16:29] LABS: Glucose,Whole Blood 140 mg/dL (75-99)
--- NOTE | 2020-11-11 17:12 | US ---
EXAMINATION TYPE: US bladder DATE OF EXAM: 11/11/2020 COMPARISON: EXAMINATION TYPE: US bladder Exam done portable. DATE OF EXAM: 11/11/2020 COMPARISON: NONE CLINICAL HISTORY: r/o retention. Patient states she is having pelvic pressure, states it feels like h er bladder is extremely full, patient has parisi catheter. Scanned midline pelvis: 17.7 x 9.0 x 11.4cm anechoic area seen, unable to definitively confirm this a s the patient's bladder(possible fluid collection, possible bowel), no bladder jets seen, catheter se en anterior to anechoic area. IMPRESSION: There is Parisi catheter. No fluid seen around the Parisi catheter balloon. There is large fluid collection in the pelvis that appears to be free fluid in the pelvis or cystic pelvic mass. CLINICAL HISTORY: r/o retention. EXAM MEASUREMENTS: Post Void Residual Volume: mL Color Doppler performed to assess ureteral jets. Bilateral Jets seen: Normal Post Void Residual (less than 50ml): IMPRESSION:
[2020-11-11] MEDS: MULTIVITAMINS, THERA 1 EACH TAB PO SCH (17:27)
--- NOTE | 2020-11-11 17:28 | XR ---
EXAMINATION TYPE: XR abdomen 2V DATE OF EXAM: 11/11/2020 COMPARISON: 02/05/2020 HISTORY: Abdominal pain TECHNIQUE: 4 views supine and upright FINDINGS: There is retained fecal material in the large bowel. There is no evidence of free air. Ther e is lumbar levoscoliosis deformity. 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 Th ere are no pathologic calcifications over the kidneys. I see no definite pleural effusion. IMPRESSION: There is evidence for some constipation. No free air.
--- NOTE | 2020-11-11 17:44 | P.PN ---
Subjective Progress Note Date: 11/11/20 Principal diagnosis: Acute severe bilateral COVID 19 pneumonitis Mrs. Gonzales is a 30-year-old female with a past medical history of meningomyelocele, chronic neurogenic bladder, recurrent UTIs, self- catheterization of bladder, GERD, chronic left hydroureter and hydronephrosis a dmitted to the hospital for symptoms of UTI. She was tested positive for COVID- 19. Eventually the patient had acute hypoxic respiratory failure, was started on REM deciliter and Decadron and required high flow nasal cannula. Later on changed to BiPAP and currently she is on 5 L of nasal cannula. Patient is comfortably lying in bed appears to be no acute distress. She states that her difficulty in breathing is improving. She denies having any chest pain or palpitations. No fever or chills or rigors. No abdominal pain nausea vomiting or diarrhea. As per discussion with nursing staff, they placed a catheter and it was not draining. So bladder scan was obtained showing 1 L of urine. I was at the bedside, when the nurse tried to put in a Liu's catheter. But he failed to have any urinary output so urology will be consulted. On reviewing her vitals T-max of 97.6, heart rate 80 and, as stated 18, blood pressure 120/77, saturating at 92% on 5 L of oxygen. No new labs from this m orning blood sugars ranging between 100-140. Active Medications Acetaminophen (Acetaminophen Tab 325 Mg Tab) 650 mg PO Q6HR PRN PRN Reason: Mild Pain or Fever > 100.5 Last Admin: 11/01/20 12:21 Dose: 650 mg Documented by: Alprazolam (Alprazolam 0.25 Mg Tab) 0.25 mg PO TID PRN PRN Reason: Anxiety Last Admin: 11/02/20 17:33 Dose: 0.25 mg Documented by: Artificial Tears (Artificial Tears-Hypromellose Drops 15 Ml Btl) 2 drops BOTH EYES QID PRN PRN Reason: Dry Eye(s) Last Admin: 11/05/20 18:48 Dose: 2 drops Documented by: Ascorbic Acid (Ascorbic Acid 500 Mg Tab) 1,000 mg PO DAILY GAVIN Last Admin: 11/11/20 10:37 Dose: 1,000 mg Documented by: Benzonatate (Benzonatate 100 Mg Cap) 100 mg PO TID PRN PRN Reason: Cough Last Admin: 10/30/20 18:15 Dose: 100 mg Documented by: Cholecalciferol (Cholecalciferol 25 Mcg (1000 Iu) Tablet) 100 mcg PO DAILY [facility] Last Admin: 11/11/20 10:36 Dose: 100 mcg Documented by: Dexamethasone Sodium Phosphate (Dexamethasone Sod Phosphate 10 Mg/Ml 1 Ml Vial) 6 mg IV BID [facility] Last Admin: 11/11/20 10:37 Dose: 6 mg Documented by: Enoxaparin Sodium (Enoxaparin 40 Mg/0.4 Ml Syringe) 40 mg SQ BID [facility] Last Admin: 11/11/20 10:36 Dose: 40 mg Documented by: Famotidine (Famotidine 20 Mg Tab) 20 mg PO BID [facility] Last Admin: 11/11/20 10:37 Dose: 20 mg Documented by: Metoprolol Tartrate (Metoprolol Tartrate 25 Mg Tab) 25 mg PO BID@0600,1800 [facility] Last Admin: 11/11/20 17:27 Dose: 25 mg Documented by: Multivitamins (Multivitamins, Thera 1 Each Tab) 1 each PO HS@1800 [facility] Last Admin: 11/11/20 17:27 Dose: 1 each Documented by: Naloxone HCl (Naloxone 0.4 Mg/Ml 1 Ml Vial) 0.2 mg IV Q2M PRN PRN Reason: Opioid Reversal Ondansetron HCl (Ondansetron Odt 4 Mg Tab) 4 mg PO Q8HR PRN PRN Reason: Nausea Last Admin: 11/01/20 19:23 Dose: 4 mg Documented by: Oxymetazoline HCl (Oxymetazoline 0.05% Nasl [place] 1 [place] Bottle) 2 spray NASAL BID [facility] Last Admin: 11/11/20 10:37 Dose: Not Given Documented by: Senna/Docusate Sodium (Sennosides-Docusate Sodium 1 Each Tab) 1 each PO INIGUEZ [facility] Last Admin: 11/05/20 06:20 Dose: 1 each Documented by: Zinc Sulfate (Zinc Sulfate 220 Mg Cap) 220 mg PO DAILY [facility] Last Admin: 11/11/20 10:37 Dose: 220 mg Documented by: Objective - Vital Signs Vital signs: Vital Signs Temp 97.6 F 11/11/20 08:00 Pulse 89 11/11/20 08:00 Resp 18 11/11/20 08:00 BP 120/77 11/11/20 08:00 Pulse Ox 92 L 11/11/20 08:00 Intake & Output 11/10/20 11/11/20 11/11/20 18:59 06:59 18:59 Intake Total 2451 20 620 Output Total 1652 750 600 Balance 799 -730 20 Weight 64 kg Intake: IV 20 20 20 Invasive Line 3 20 20 20 Oral 2431 600 Output: Urine 1652 750 600 Uretheral (Liu) 1152 600 Other: Voiding Method Indwelling Catheter Indwelling Catheter Indwelling Catheter # Bowel Movements 1 1 - Exam GENERAL: The patient is alert and oriented x3, not in any acute distress. Small in stature HEENT: Pupils are round and equally reacting to light. EOMI. No scleral icterus. No conjunctival pallor. CARDIOVASCULAR: S1 and S2 present. No murmurs, rubs, or gallops. PULMONARY: Chest is clear to auscultation, decreased at the lower lung bases. ABDOMEN: Soft, nontender, slightly distended, normoactive bowel sounds. Prior vaginal exam - cervical prolapse, cervix is seen protruding through the vagina, mild amount of bleeding on the glove after the exam. Tried to push the cervix inside. Tried to place Liu's catheter, minimal amount of urine drained EXTREMITIES: no edema NEUROLOGICAL: Paraplegia SKIN: No rashes. no petechiae. - Labs CBC & Chem 7: 11/09/20 12:15 11/08/20 08:20 Labs: Abnormal Lab Results - Last 24 Hours (Table) 11/10/20 11/10/20 11/11/20 Range/Units 16:50 20:00 11:31 POC Glucose (mg/dL) 116 H 105 H 116 H (75-99) mg/dL Assessment and Plan Assessment: ASSESSMENT -Acute severe bilateral COVID 19 pneumonitis, with symptoms starting about 8 days before presentation- slow to respond - Acute urinary retention in a patient with neurogenic bladder -Acute hypoxic respiratory failure due to COVID 19 -Increased inflammatory markers -Chronic spina bifida causing chronic paraplegia -Chronic paraplegia from spina bifida -Chronic neurogenic bladder, and a baseline patient straight caths 4 times a day -Chronic neurogenic bladder requiring self-catheterization -Chronic medical debility patient is wheelchair bound. PLAN; patient to be continued on steroids, vitamin C, vitamin D, zinc and Lovenox. She completed Remdesivir course. Current active issue is acute urinary retention, in a patient with neurogenic bladder. Placed Liu's catheter but failed to drain. Bladder scan showed 1 L of urine. So consulted urology. Patient also has cervical prolapse so STAFFING DIRECTOR has been consulted. We'll also obtain an abdominal x-ray as the patient abdomen is slightly distended. Further recommendations to follow depending on the progress of the patient.
--- NOTE | 2020-11-11 18:38 | PN ---
PROGRESS NOTE DATE OF SERVICE: 11/11/2020 REASON FOR FOLLOWUP: COVID-19 pneumonia. INTERVAL HISTORY: The patient is currently afebrile. The patient is breathing comfortably, currently on 5 L nasal cannula. No chest pain, shortness of breath or cough. No abdominal pain, no diarrhea. PHYSICAL EXAMINATION: Blood pressure 120/77 with a pulse of 89, temperature 98.6, 92% on 5 L nasal cannula. General description is a middle-aged female lying in bed in no distress. Respiratory system: Unlabored breathing, clear to auscultation anteriorly. Heart S1, S2. Regular rate and rhythm. Abdomen soft, no tenderness. LABS: No new labs have been obtained today. DIAGNOSTIC IMPRESSION AND PLAN: Patient with COVID-19 pneumonia. Patient has completed her Remdesivir. She also received Actemra. Currently on dexamethasone, Lovenox, zinc and ascorbic acid. Continue supportive care. MMODL / IJN: [id number] /
[2020-11-11 20:10] LABS: Glucose,Whole Blood 145 mg/dL (75-99)
[2020-11-11] MEDS: DOCUSATE 100 MG CAP PO SCH (20:31)
[2020-11-11] MEDS: ACETAMINOPHEN TAB 325 MG TAB PO PRN (20:31)
--- NOTE | 2020-11-11 23:49 | CT ---
EXAMINATION TYPE: CT abdomen pelvis wo con DATE OF EXAM: 11/11/2020 COMPARISON: 01/02/2017 HISTORY: Decreased urine output. Free fluid in pelvis. CT DLP: 663.9 mGycm Automated exposure control for dose reduction was used. Images obtained from the diaphragm to the floor the pelvis with no contrast. There is some pulmonary interstitial and airspace edema in the lower lung roman. There is no pleural effusion. There is no pericardial effusion. Liver and spleen are intact. Gallbladder is contracted. The bile ducts are not dilated. There is no p ancreatic mass. The stomach is intact. There is no adrenal mass. Left kidney is relatively small. Kidneys show no hydronephrosis. There is Liu catheter in the urinary bladder. Bladder is empty. There is large cystic pelvic fluid collection that is in the cul-de-sac extending superiorly out of the pelvis. This measures 18 x 10 cm . The density is low. This is probably a cyst arising from the left ovary. Uterus appears anteverted. There is no mesenteric edema. There is no ascites or free air. There is no evidence of a bowel obstru ction. Appendix not definitely seen. No sign of thickened appendix. There is left-sided hip dysplasia with deformity of the femoral head and dislocated left hip joint. There is thoracolumbar levoscoliotic deformity. There is thoracic dextroscoliosis. 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 There is spina bifida. There is lumbosacral meningocele. IMPRESSION: There is moderate pulmonary edema. Pulmonary edema appears new compared to old exam. Large cystic thin wall pelvic fluid collection could be large ovarian cyst. This appears not signific antly different than old exam for years ago.
[2020-11-12] MEDS: SENNOSIDES-DOCUSATE SODIUM 1 EACH TAB PO SCH (05:37)
[2020-11-12] MEDS: METOPROLOL TARTRATE 25 MG TAB PO SCH ×2 (05:37→17:01)
[2020-11-12 05:39] VITALS: RESP 16
[2020-11-12 06:02] LABS: Glucose,Whole Blood 124 mg/dL (75-99)
--- NOTE | 2020-11-12 09:33 | P.PN ---
Subjective Progress Note Date: 11/12/20 Principal diagnosis: Acute hypoxic respiratory failure Bilateral covid 19 pneumonia Sepsis Baseline condition of spina bifid a with recurrent chronic urinary tract infection 11/12/2020, patient seen eval examined Estrace status continued to improve, patient is known to liter shortness of breath continued to improve, denies any chest pain and is still have intermittent dry cough, and has his bladder irrigated for obstruction, 11/11/2020, patient seen and evaluated examined her respiratory status slowly improving, does not however tapered down to less than 5 L, sats are in low 90s, ongoing shortness of breath on exertion is present denies any chest pain, 11/10/2020, patient seen eval examined during the rounds labs reviewed medications reviewed care plan discussed, respiratory status slightly better now, patient remains on supplemental oxygen was 6 L, tapering oxygen further causes desaturation, patient is still short of breath unable to complete full sentences however, 11/09/2020, patient seen eval examined slowly FiO2 is being tapered down, remains short of breath on activity and exertion, able to bring it down to 10 L now since saturation is 90%, lowering further causes desaturation significant, patient has been BiPAP at nighttime, 11/08/2020, patient seen eval examined during the rounds labs reviewed medications reviewed care plan discussed, patient is on 15 L oxygen at night time goes on BiPAP, respiratory status stable patient however desaturate on lower FiO2 will follow clinical course closely continue current plan of care and treatment 11/07/2020, patient seen evflor examined during the rounds labs reviewed medications reviewed as per his status continued to improve, less cough and congestion patient breathing more easily, has been on 15 L high flow oxygen, off of BiPAP, however would recommend to continue to use BiPAP at nighttime during the day 5 L oxygen with titration as tolerated 11/06/2020, patient seen evflor examined during the rounds she is in good spirits breathing comfortably denies any chest pain however hypoxia is still there be saturated on 6 L nasal cannulae into high 70s and low 80s, has been on BiPAP currently IPAP of 10:15 and EPAP of 10 with 60% oxygen, will attempt high flow oxygen aerosolysedfor oral care eating and for taking a break from BiPAP machine 11/05/2020, patient seen and evaluated examined labs reviewed medications reviewed overall respiratory status slightly better able to tolerate oxygen vonda al cannula for short period time but most of time however still require BiPAP support, current BiPAP support include IPAP of 15 and EPAP of 5 with 60% oxygen, oxygenation is gradually being tapered down, patient remains on her usual therapy for COVID-19 pneumonia also status post Actemra, 11/04/2020, patient seen eval examined during the rounds each and for breakfast and oral care has been switched from BiPAP 15/10 and 80% oxygen on with saturation was 95% to 6 L nasal cannula oxygen saturation remains stable 89% during evening, will continue BiPAP each night and when necessary during the day and high flow oxygen in between 11/03/2020, patient seen eval examined during rounds labs reviewed, status post a Actemera effusion respiratory status slightly better but however continued to require BiPAP machine, includes 15/10 with 80% oxygen sats are 95%, patient feels relatively better breathing has been easier, Luis on other therapies for COVID-19 pneumonia 11/02/2020, patient seen eval reexamined during the rounds labs reviewed medications reviewed care plan discussed, denies any chest pain shortness of breath is present denies any cough or sputum production, due to constant desatu ration and low oxygenation patient has been moved from fourth floor to third floor on a telemetry bed, patient has been placed on BiPAP, BiPAP setting is 15/10 with 100% oxygen, feels slightly less short of breath on that setting able to tolerate BiPAP fairly well hemodynamic status stable saturations 90%, 11/01/2020, patient seen eval examined during the rounds labs reviewed medications reviewed care plan discussed, oxygen saturation continue to drop down in last 12-48 hours has been on high flow oxygen and mask, desaturate up to 70-80%, has been placed on BiPAP 15/10 with that oxygen saturation improved to 85%, we will consult infectious disease for trial of Actemra given that patient most likely having cytokine ana luisa 10/31/2020, patient seen eval examined during the rounds very short of breath on activity and exertion, address saturation is 87 to 90% on high flow oxygen with nonrebreather mask, denies any cough or sputum production patient has been instructed to prone as much as possible Patient came into the hospital with progressive shortness of breath cough patient is currently on nonrebreather mask symptoms started about 2 days ago with progressive malaise and myalgia, prior medical history significant for a spina bifid a as well as renal calculi has history of multiple UTIs, on arrival noted to have fever of 101, her oxygen saturation was just 75% however improved to 89-90% on nonrebreather mask, her inflammatory parameters were elevated including LDH C-reactive protein, chest x-ray showed bilateral interstitial opacities consistent with Coban 19 pneumonia, computed tomography scan negative for pulmonary embolism, however confirm the findings on the x-ray, currently patient is being treated with IV Decadron, Objective - Vital Signs Vital signs: Vital Signs Temp 97.9 F 11/12/20 05:37 Pulse 92 11/12/20 05:37 Resp 16 11/12/20 05:37 BP 107/72 11/12/20 05:37 Pulse Ox 91 L 11/12/20 05:37 Intake & Output 11/11/20 11/12/20 11/12/20 18:59 06:59 18:59 Intake Total 862 540 Output Total 1200 790 Balance -338 -790 540 Weight 82 kg Intake: IV 40 Invasive Line 3 40 Oral 822 540 Output: Urine 1200 790 Uretheral (Liu) 950 Other: Voiding Method Indwelling Catheter Indwelling Catheter # Bowel Movements 1 1 - Exam - Constitutional General appearance: average body habitus, cooperative, disheveled - EENT Eyes: PERRLA Ears: bilateral: normal - Neck Carotids: bilateral: upstroke normal - Respiratory Respiratory: bilateral: diminished, wheezing - Cardiovascular Rhythm: regular Heart sounds: normal: S1, S2 - Gastrointestinal General gastrointestinal: distended, soft - Neurologic Neurologic: CNII-XII intact - Musculoskeletal Musculoskeletal: gait normal, generalized weakness, strength equal bilaterally - Psychiatric Psychiatric: A&O x's 3, appropriate affect, intact judgment & insight - Labs CBC & Chem 7: 11/09/20 12:15 11/08/20 08:20 Labs: Abnormal Lab Results - Last 24 Hours (Table) 11/11/20 11/11/20 11/11/20 Range/Units 11:31 16:24 20:09 POC Glucose (mg/dL) 116 H 140 H 145 H (75-99) mg/dL 11/12/20 Range/Units 05:56 POC Glucose (mg/dL) 124 H (75-99) mg/dL Assessment and Plan Assessment: Acute hypoxic respiratory failure Sepsis due to COVID-19 pneumonia Bilateral covid 19 pneumonia Baseline condition of spina bifid a with recurrent chronic urinary tract infection, off of Bactrim Plan: patientis status post Actemera Supplemental oxygen titrated down slowly as tolerated Deep breathing exercises incentive spirometry Prone positioning of possible IV steroids in the form of Decadron, can be changed to oral at the time of discharge for 1 week milligrams daily status post IV REMdesivir for 5 days Lovenox can be switched to aspirin at the time of discharge 81 mg daily Further plan of care as per clinical response of the patient Time with Patient: Greater than 30
[2020-11-12] MEDS: ZINC SULFATE 220 MG CAP PO SCH (11:01)
[2020-11-12] MEDS: FAMOTIDINE 20 MG TAB PO SCH ×2 (11:01→20:02)
[2020-11-12] MEDS: ASCORBIC ACID 500 MG TAB PO SCH (11:01)
[2020-11-12] MEDS: DOCUSATE 100 MG CAP PO SCH ×2 (11:01→20:02)
[2020-11-12] MEDS: CHOLECALCIFEROL 25 MCG (1000 IU) TABLET PO SCH (11:01)
[2020-11-12] MEDS: OXYMETAZOLINE 0.05% NASL SPRAY 1 SPRAY BOTTLE NASAL SCH ×2 (11:02→20:02)
[2020-11-12] MEDS: DEXAMETHASONE SOD PHOSPHATE 10 MG/ML 1 ML VIAL IV SCH ×2 (11:02→20:02)
[2020-11-12] MEDS: ENOXAPARIN 40 MG/0.4 ML SYRINGE SQ SCH ×2 (11:02→20:02)
[2020-11-12 11:35] LABS: Glucose,Whole Blood 124 mg/dL (75-99)
--- NOTE | 2020-11-12 15:55 | PN ---
PROGRESS NOTE DATE OF SERVICE: 11/12/2020 REASON FOR FOLLOWUP: COVID-19 pneumonia. INTERVAL HISTORY: The patient is currently afebrile. Patient is breathing comfortably currently on 2 liters nasal cannula. Denies any chest pain. No shortness of breath or cough. No nausea, vomiting or diarrhea. PHYSICAL EXAMINATION: Blood pressure 124/83, pulse 89, temperature 98.2, she is 90% on 2 L nasal cannula. GENERAL DESCRIPTION: A middle-aged female lying in bed in no distress. RESPIRATORY SYSTEM: Unlabored breathing, clear to auscultation anteriorly. HEART: S1, S2. Regular rate and rhythm. ABDOMEN: Soft, no tenderness. LABS: No new labs have been done today. DIAGNOSTIC IMPRESSION AND PLAN: Patient with acute COVID-19 pneumonia in this patient who has shown overall clinical improvement. The patient's oxygenation down to 2 L nasal cannula. She is dexamethasone, Lovenox, zinc and ascorbic acid, to continue along with with respiratory support. Monitor clinical course closely. MMODL / IJN: [id number] /
[2020-11-12 16:44] LABS: Glucose,Whole Blood 131 mg/dL (75-99)
[2020-11-12] MEDS: MULTIVITAMINS, THERA 1 EACH TAB PO SCH (17:01)
[2020-11-12] MEDS: polyethylene glycoL 3350 17 GM POWD.PACK PO SCH (17:01)
[2020-11-12] MEDS: bisacodyL 10 MG SUPP RECTAL SCH ×2 (17:01→18:25)
--- NOTE | 2020-11-12 23:45 | P.PN ---
Subjective Progress Note Date: 11/12/20 Principal diagnosis: Acute severe bilateral COVID 19 pneumonitis Mrs. Gonzales is a 30-year-old female with a past medical history of meningomyelocele, chronic neurogenic bladder, recurrent UTIs, self- catheterization of bladder, GERD, chronic left hydroureter and hydronephrosis a dmitted to the hospital for symptoms of UTI. She was tested positive for COVID- 19. Eventually the patient had acute hypoxic respiratory failure, was started on REM deciliter and Decadron and required high flow nasal cannula. Later on changed to BiPAP and currently she is on 5 L of nasal cannula. On 11/11/2020- Patient is comfortably lying in bed appears to be no acute distress. She states that her difficulty in breathing is improving. She denies having any chest pain or palpitations. No fever or chills or rigors. No abdominal pain nausea vomiting or diarrhea. As per discussion with nursing staff, they placed a catheter and it was not draining. So bladder scan was obtained showing 1 L of urine. I was at the bedside, when the nurse tried to put in a Liu's catheter. But he failed to have any urinary output so urology will be consulted. On 11/12/2020 --patient was seen and examined at bedside no acute distress. Patient has Liu's catheter in place with good urinary output. Patient denies having any active complaints. She states that difficulty in breathing is improving. No chest pain or palpitations. No abdominal pain nausea vomiting or diarrhea. She is states that she is constipated and last bowel movement was yesterday morning. On reviewing the vitals temperature of 98, heart rate of 100s to 120s, blood pressure 131 x 78, saturating at 90% on 2 L of nasal cannula. On reviewing her labs, no new labs for the past couple of days. Active Medications Acetaminophen (Acetaminophen Tab 325 Mg Tab) 650 mg PO Q6HR PRN PRN Reason: Mild Pain or Fever > 100.5 Last Admin: 11/11/20 20:31 Dose: 650 mg Documented by: Alprazolam (Alprazolam 0.25 Mg Tab) 0.25 mg PO TID PRN PRN Reason: Anxiety Last Admin: 11/02/20 17:33 Dose: 0.25 mg Documented by: Artificial Tears (Artificial Tears-Hypromellose Drops 15 Ml Btl) 2 drops BOTH EYES QID PRN PRN Reason: Dry Eye(s) Last Admin: 11/05/20 18:48 Dose: 2 drops Documented by: Ascorbic Acid (Ascorbic Acid 500 Mg Tab) 1,000 mg PO DAILY [facility] [place] Last Admin: 11/12/20 11:01 Dose: 1,000 mg Documented by: Benzonatate (Benzonatate 100 Mg Cap) 100 mg PO TID PRN PRN Reason: Cough Last Admin: 10/30/20 18:15 Dose: 100 mg Documented by: Bisacodyl (Bisacodyl 10 Mg Supp) 10 mg RECTAL DAILY [facility] [place] Last Admin: 11/12/20 18:25 Dose: Not Given Documented by: Cholecalciferol (Cholecalciferol 25 Mcg (1000 Iu) Tablet) 100 mcg PO DAILY [facility] [place] Last Admin: 11/12/20 11:01 Dose: 100 mcg Documented by: Dexamethasone Sodium Phosphate (Dexamethasone Sod Phosphate 10 Mg/Ml 1 Ml Vial) 6 mg IV BID [facility] [place] Last Admin: 11/12/20 20:02 Dose: 6 mg Documented by: Docusate Sodium (Docusate 100 Mg Cap) 100 mg PO BID [facility] [place] Last Admin: 11/12/20 20:02 Dose: 100 mg Documented by: Enoxaparin Sodium (Enoxaparin 40 Mg/0.4 Ml Syringe) 40 mg SQ BID [facility] [place] Last Admin: 11/12/20 20:02 Dose: 40 mg Documented by: Famotidine (Famotidine 20 Mg Tab) 20 mg PO BID [facility] [place] Last Admin: 11/12/20 20:02 Dose: 20 mg Documented by: Metoprolol Tartrate (Metoprolol Tartrate 25 Mg Tab) 25 mg PO BID@0600,1800 [facility] [place] Last Admin: 11/12/20 17:01 Dose: 25 mg Documented by: Multivitamins (Multivitamins, Thera 1 Each Tab) 1 each PO HS@1800 [facility] [place] Last Admin: 11/12/20 17:01 Dose: 1 each Documented by: Naloxone HCl (Naloxone 0.4 Mg/Ml 1 Ml Vial) 0.2 mg IV Q2M PRN PRN Reason: Opioid Reversal Ondansetron HCl (Ondansetron Odt 4 Mg Tab) 4 mg PO Q8HR PRN PRN Reason: Nausea Last Admin: 11/01/20 19:23 Dose: 4 mg Documented by: Oxymetazoline HCl (Oxymetazoline 0.05% Nasl Geneva 1 Geneva Bottle) 2 spray NASAL BID [facility] [place] Last Admin: 11/12/20 20:02 Dose: Not Given Documented by: Polyethylene Glycol (Polyethylene Glycol 3350 17 Gm Powd.Pack) 17 gm PO DAILY [facility] [place] Last Admin: 11/12/20 17:01 Dose: 17 gm Documented by: Senna/Docusate Sodium (Sennosides-Docusate Sodium 1 Each Tab) 1 each PO INIGUEZ [facility] [place] Last Admin: 11/12/20 05:37 Dose: 1 each Documented by: Zinc Sulfate (Zinc Sulfate 220 Mg Cap) 220 mg PO DAILY [facility] [place] Last Admin: 11/12/20 11:01 Dose: 220 mg Documented by: Objective - Vital Signs Vital signs: Vital Signs Temp 98.2 F 11/12/20 08:00 Pulse 89 11/12/20 08:00 Resp 16 11/12/20 08:00 BP 112/83 11/12/20 08:00 Pulse Ox 90 L 11/12/20 08:00 Intake & Output 11/11/20 11/12/20 11/12/20 18:59 06:59 18:59 Intake Total 862 1090 Output Total 1200 790 Balance -338 -790 1090 Weight 82 kg Intake: IV 40 10 Invasive Line 3 40 10 Oral 822 1080 Output: Urine 1200 790 Uretheral (Liu) 950 Other: Voiding Method Indwelling Catheter Indwelling Catheter Indwelling Catheter # Bowel Movements 1 1 - Exam GENERAL: The patient is alert and oriented x3, not in any acute distress. Small in stature HEENT: Pupils are round and equally reacting to light. EOMI. No scleral icterus. No conjunctival pallor. CARDIOVASCULAR: S1 and S2 present. No murmurs, rubs, or gallops. PULMONARY: Chest is clear to auscultation, decreased at the lower lung bases. ABDOMEN: Soft, nontender, slightly distended, normoactive bowel sounds. EXTREMITIES: no edema NEUROLOGICAL: Paraplegia SKIN: No rashes. no petechiae. - Labs CBC & Chem 7: 11/09/20 12:15 11/08/20 08:20 Labs: Abnormal Lab Results - Last 24 Hours (Table) 11/11/20 11/11/20 11/12/20 Range/Units 16:24 20:09 05:56 POC Glucose (mg/dL) 140 H 145 H 124 H (75-99) mg/dL 11/12/20 Range/Units 11:33 POC Glucose (mg/dL) 124 H (75-99) mg/dL Assessment and Plan Assessment: ASSESSMENT -Acute severe bilateral COVID 19 pneumonitis, with symptoms starting about 8 days before presentation- slow to respond - Acute urinary retention in a patient with neurogenic bladder -Acute hypoxic respiratory failure due to COVID 19 -Increased inflammatory markers -Chronic spina bifida causing chronic paraplegia -Chronic paraplegia from spina bifida -Chronic neurogenic bladder, and a baseline patient straight caths 4 times a day -Chronic neurogenic bladder requiring self-catheterization -Chronic medical debility patient is wheelchair bound. PLAN; patient to be continued on steroids, vitamin C, vitamin D, zinc and Lovenox. She completed Remdesivir course. As the patient had urinary retention, urology was consulted. They placed a Liu's catheter and she has good urinary output now. She was also evaluated by [employer] for cervical prolapse and they recommended outpatient follow-up for it. Patient also had a CT of the abdomen done showing large cystic thin-walled pelvic fluid collection which could be a large ovarian cyst that has been present for many years. Patient states that she is aware about the cystic mass. Patient to be continued on the current medication regimen. Anticipate discharge in the next 24 hours.
[2020-11-13] MEDS: METOPROLOL TARTRATE 25 MG TAB PO SCH (06:05)
[2020-11-13] MEDS: ENOXAPARIN 40 MG/0.4 ML SYRINGE SQ SCH (08:34)
[2020-11-13] MEDS: ZINC SULFATE 220 MG CAP PO SCH (08:35)
[2020-11-13] MEDS: polyethylene glycoL 3350 17 GM POWD.PACK PO SCH (08:35)
[2020-11-13] MEDS: DOCUSATE 100 MG CAP PO SCH (08:35)
[2020-11-13] MEDS: CHOLECALCIFEROL 25 MCG (1000 IU) TABLET PO SCH (08:35)
[2020-11-13] MEDS: ASCORBIC ACID 500 MG TAB PO SCH (08:35)
[2020-11-13] MEDS: FAMOTIDINE 20 MG TAB PO SCH (08:35)
[2020-11-13] MEDS: bisacodyL 10 MG SUPP RECTAL SCH (08:36)
[2020-11-13] MEDS: DEXAMETHASONE SOD PHOSPHATE 10 MG/ML 1 ML VIAL IV SCH (08:36)
[2020-11-13] MEDS: OXYMETAZOLINE 0.05% NASL SPRAY 1 SPRAY BOTTLE NASAL SCH (08:36)
[2020-11-13 10:27] VITALS: BP 110/77; PULSE 86; TEMP 97.2
--- NOTE | 2020-11-13 10:55 | P.PN ---
Subjective Progress Note Date: 11/13/20 Principal diagnosis: Acute hypoxic respiratory failure Bilateral covid 19 pneumonia Sepsis Baseline condition of spina bifid a with recurrent chronic urinary tract infection 11/13/2020, patient seen eval examined during the rounds has been on 2 L oxygen does desaturate into mid 80s off of oxygen on room air, Wes 2 L improved to 92% still left shortness of breath on activity and exertion however cuff congestion have improved significantly patient likely will go home on home oxygen as well as oral Decadron for as a week to 10 days, will follow up on telemetry medicine to see and monitor progress in case if patient discharge today, 11/12/2020, patient seen eval examined Estrace status continued to improve, patient is known to liter shortness of breath continued to improve, denies any chest pain and is still have intermittent dry cough, and has his bladder irrigat ed for obstruction, 11/11/2020, patient seen and evaluated examined her respiratory status slowly i mproving, does not however tapered down to less than 5 L, sats are in low 90s, ongoing shortness of breath on exertion is present denies any chest pain, 11/10/2020, patient seen eval examined during the rounds labs reviewed medications reviewed care plan discussed, respiratory status slightly better now, patient remains on supplemental oxygen was 6 L, tapering oxygen further causes desaturation, patient is still short of breath unable to complete full sentences however, 11/09/2020, patient seen eval examined slowly FiO2 is being tapered down, remains short of breath on activity and exertion, able to bring it down to 10 L now since saturation is 90%, lowering further causes desaturation significant, patient has been BiPAP at nighttime, 11/08/2020, patient seen eval examined during the rounds labs reviewed medications reviewed care plan discussed, patient is on 15 L oxygen at night time goes on BiPAP, respiratory status stable patient however desaturate on lower FiO2 will follow clinical course closely continue current plan of care and treatment 11/07/2020, patient seen eval examined during the rounds labs reviewed medications reviewed as per his status continued to improve, less cough and congestion patient breathing more easily, has been on 15 L high flow oxygen, off of BiPAP, however would recommend to continue to use BiPAP at nighttime during the day 5 L oxygen with titration as tolerated 11/06/2020, patient seen eval examined during the rounds she is in good spirits breathing comfortably denies any chest pain however hypoxia is still there be saturated on 6 L nasal cannulae into high 70s and low 80s, has been on BiPAP currently IPAP of 10:15 and EPAP of 10 with 60% oxygen, will attempt high flow oxygen aerosolysedfor oral care eating and for taking a break from BiPAP machine 11/05/2020, patient seen and evaluated examined labs reviewed medications reviewed overall respiratory status slightly better able to tolerate oxygen nasal cannula for short period time but most of time however still require BiPAP support, current BiPAP support include IPAP of 15 and EPAP of 5 with 60% oxygen, oxygenation is gradually being tapered down, patient remains on her usual therapy for COVID-19 pneumonia also status post Actemra, 11/04/2020, patient seen eval examined during the rounds each and for breakfast and oral care has been switched from BiPAP 15/10 and 80% oxygen on with saturation was 95% to 6 L nasal cannula oxygen saturation remains stable 89% during evening, will continue BiPAP each night and when necessary during the day and high flow oxygen in between 11/03/2020, patient seen eval examined during rounds labs reviewed, status post a Actemera effusion respiratory status slightly better but however continued to require BiPAP machine, includes 15/10 with 80% oxygen sats are 95%, patient feels relatively better breathing has been easier, Luis on other therapies for COVID-19 pneumonia 11/02/2020, patient seen eval reexamined during the rounds labs reviewed medications reviewed care plan discussed, denies any chest pain shortness of breath is present denies any cough or sputum production, due to constant desaturation and low oxygenation patient has been moved from fourth floor to third floor on a telemetry bed, patient has been placed on BiPAP, BiPAP setting is 15/10 with 100% oxygen, feels slightly less short of breath on that setting able to tolerate BiPAP fairly well hemodynamic status stable saturations 90%, 11/01/2020, patient seen eval examined during the rounds labs reviewed medications reviewed care plan discussed, oxygen saturation continue to drop down in last 12-48 hours has been on high flow oxygen and mask, desaturate up to 70-80%, has been placed on BiPAP 15/10 with that oxygen saturation improved to 85%, we will consult infectious disease for trial of Actemra given that patient most likely having cytokine ana luisa 10/31/2020, patient seen eval examined during the rounds very short of breath on activity and exertion, address saturation is 87 to 90% on high flow oxygen with nonrebreather mask, denies any cough or sputum production patient has been instructed to prone as much as possible Patient came into the hospital with progressive shortness of breath cough patient is currently on nonrebreather mask symptoms started about 2 days ago with progressive malaise and myalgia, prior medical history significant for a spina bifid a as well as renal calculi has history of multiple UTIs, on arrival noted to have fever of 101, her oxygen saturation was just 75% however improved to 89-90% on nonrebreather mask, her inflammatory parameters were elevated including LDH C-reactive protein, chest x-ray showed bilateral interstitial opacities consistent with Coban 19 pneumonia, computed tomography scan negative for pulmonary embolism, however confirm the findings on the x-ray, currently patient is being treated with IV Decadron, Objective - Vital Signs Vital signs: Vital Signs Temp 97.2 F L 11/13/20 07:48 Pulse 86 11/13/20 07:48 Resp 16 11/13/20 08:10 BP 110/77 11/13/20 07:48 Pulse Ox 92 L 11/13/20 08:10 Intake & Output 11/12/20 11/13/20 11/13/20 18:59 06:59 18:59 Intake Total 2140 230 250 Output Total 625 750 Balance 1515 -520 250 Weight 65 kg Intake: IV 20 30 10 Invasive Line 3 20 Invasive Line 4 30 10 Oral 2120 200 240 Output: Urine 625 750 Uretheral (Liu) 750 Other: Voiding Method Indwelling Catheter Indwelling Catheter Indwelling Catheter # Bowel Movements 1 - Exam - Constitutional General appearance: average body habitus, cooperative, disheveled - EENT Eyes: PERRLA Ears: bilateral: normal - Neck Carotids: bilateral: upstroke normal - Respiratory Respiratory: bilateral: diminished, wheezing - Cardiovascular Rhythm: regular Heart sounds: normal: S1, S2 - Gastrointestinal General gastrointestinal: distended, soft - Neurologic Neurologic: CNII-XII intact - Musculoskeletal Musculoskeletal: gait normal, generalized weakness, strength equal bilaterally - Psychiatric Psychiatric: A&O x's 3, appropriate affect, intact judgment & insight - Labs CBC & Chem 7: 11/09/20 12:15 11/08/20 08:20 Labs: Abnormal Lab Results - Last 24 Hours (Table) 11/12/20 11/12/20 Range/Units 11:33 16:41 POC Glucose (mg/dL) 124 H 131 H (75-99) mg/dL Assessment and Plan Assessment: Acute hypoxic respiratory failure Sepsis due to COVID-19 pneumonia Bilateral covid 19 pneumonia Baseline condition of spina bifid a with recurrent chronic urinary tract infection, off of Bactrim Plan: patientis status post Actemera Supplemental oxygen titrated down slowly as tolerated Deep breathing exercises incentive spirometry Prone positioning of possible IV steroids in the form of Decadron, can be changed to oral at the time of discharge for 1 week 6 milligrams daily status post IV REMdesivir for 5 days Lovenox can be switched to aspirin at the time of discharge 81 mg daily Further plan of care as per clinical response of the patient Agree with discharge planning closing monitor observe an outpatient setting
[2020-11-13 11:40] LABS: African American GFR (CKD) >90 (>60 ml/min/1.73 sqM); Anion Gap 11 mmol/L; Blood Urea Nitrogen 23 mg/dL (7-17); Calcium 9.2 mg/dL (8.4-10.2); Carbon Dioxide 25 mmol/L (22-30); Chloride 100 mmol/L (98-107); Glucose 81 mg/dL (74-99); Non-African American GFR(CKD) >90 (>60 ml/min/1.73 sqM); Sodium 136 mmol/L (137-145)
[2020-11-13 11:42] LABS: Basophils # (A) 0.1 k/uL (0-0.2); Basophils % (A) 0 %; Eosinophils % (A) 0 %; HCT 43.6 % (34.0-46.0); HGB 14.2 gm/dL (11.4-16.0); Lymphocytes # (A) 2.9 k/uL (1.0-4.8); Lymphocytes % (A) 18 %; MCH 29.4 pg (25.0-35.0); MCHC 32.5 g/dL (31.0-37.0); MCV 90.3 fL (80.0-100.0); Mean Platelet Volume 8.7; Monocytes # (A) 0.8 k/uL (0-1.0); Monocytes % (A) 5 %; Neutrophils % (A) 75 %; Platelet Count 202 k/uL (150-450); RBC 4.83 m/uL (3.80-5.40); RDW 15.6 % (11.5-15.5)
[2020-11-13 11:44] LABS: Potassium 4.2 mmol/L (3.5-5.1)
--- NOTE | 2020-11-13 14:18 | PN ---
PROGRESS NOTE DATE OF SERVICE: 11/13/2020 REASON FOR FOLLOWUP: COVID-19 pneumonia. The patient is currently afebrile. The patient is breathing comfortably. Patient down to 2 L cannula. Denies having any chest pain, shortness of breath or cough. No abdominal pain or diarrhea. PHYSICAL EXAMINATION: Blood pressure 110/77, pulse of 86, temperature 97.2. She is 92% on 2 L nasal cannula. General description is a middle-aged female lying in bed in no distress. Respiratory system: Unlabored breathing, clear to auscultation anteriorly. Heart S1, S2. Regular rate and rhythm. ABDOMEN: Soft, no tenderness. LABS: Hemoglobin 14.1, white count 16. BUN of 23, creatinine 0.47. DIAGNOSTIC IMPRESSION AND PLAN: 1. This patient with acute COVID-19 infection showing clinical improvement. The patient has completed her Remdesivir therapy. Also received a dose of Actemra. She is dexamethasone, Lovenox, zinc and ascorbic acid. May consider short course of oral on discharge. 2. Elevated white count more likely steroid effect. No evidence of any infection. No need for systemic antibiotic therapy at this point. MMODL / IJN: [id number] /
--- NOTE | 2020-11-13 16:03 | P.DS ---
<Daniella Quispe - Last Filed: 11/13/20 15:58> Providers Expected date of discharge: 11/13/20 Hospital Course: Final Diagnosis -Acute severe bilateral COVID 19 pneumonitis, with symptoms starting about 8 days before presentation- slow to respond -Acute urinary retention in a patient with neurogenic bladder -Acute hypoxic respiratory failure due to COVID 19 -Increased inflammatory markers -Chronic spina bifida causing chronic paraplegia -Chronic paraplegia from spina bifida -Chronic neurogenic bladder, and a baseline patient straight caths 4 times a day -Chronic neurogenic bladder requiring self-catheterization -Chronic medical debility patient is wheelchair bound. -Full code Discharge disposition Patient is being discharged in a stable condition with guarded prognosis to home . Patient will follow-up with Dr. Edward in the outpatient setting upon discharge. Patient also instructed to follow-up with pulmonary Dr. Wilson in one week. Patient will continue with dexamethasone 6 mg daily for the next one week along with vitamin and zinc supplements and a baby aspirin of 81 mg daily in the outpatient setting. Patient will continue with 2 L of oxygen via nasal cannula secondary to COVID-19 pneumonia. Total time taken is greater than 35 minutes. Hospital Course Acute severe bilateral COVID 19 pneumonitis Mrs. Gonzales is a 30-year-old female with a past medical history of meningomyelocele, chronic neurogenic bladder, recurrent UTIs, self- catheterization of bladder, GERD, chronic left hydroureter and hydronephrosis admitted to the hospital for symptoms of UTI. She was tested positive for COVID-19. Eventually the patient had acute hypoxic respiratory failure, was started on REM deciliter and Decadron and required high flow nasal cannula. Later on changed to BiPAP and currently she is on 5 L of nasal cannula. On 11/11/2020- Patient is comfortably lying in bed appears to be no acute distress. She states that her difficulty in breathing is improving. She denies having any chest pain or palpitations. No fever or chills or rigors. No abdominal pain nausea vomiting or diarrhea. As per discussion with nursing staff, they placed a catheter and it was not draining. So bladder scan was obtained showing 1 L of urine. I was at the bedside, when the nurse tried to put in a Liu's catheter. But he failed to have any urinary output so urology will be consulted. On 11/12/2020 --patient was seen and examined at bedside no acute distress. Patient has Liu's catheter in place with good urinary output. Patient denies having any active complaints. She states that difficulty in breathing is improving. No chest pain or palpitations. No abdominal pain nausea vomiting or diarrhea. She is states that she is constipated and last bowel movement was yesterday morning. On reviewing the vitals temperature of 98, heart rate of 100s to 120s, blood pressure 131 x 78, saturating at 90% on 2 L of nasal cannula. On reviewing her labs, no new labs for the past couple of days. 11/13/2020 Patient seen and evaluated this morning continues to be on 2 L of oxygen and tolerating. Patient will be going home 2 L via nasal cannula secondary to COVID-19 pneumonia along with dexamethasone, aspirin 81 mg, vitamin and zinc supplements and will be following up with pulmonary Dr. Wilson in the outpatient setting in 1 week. Patient instructed to continue using incentive spirometer at least 10 times every hour while awake, encourage fluids and rest, monitor for fevers and treat with Tylenol, social distance, frequent handwashing, and continue wearing the mask. Patient instructed to follow-up with primary care provider upon discharge. Currently no reports of chest pain, worsening shortness of breath, or palpitations. Patient is afebrile. No reports of nausea or vomiting and patient is tolerating diet. Patient will be discharged home today. Guarded prognosis. Patient will follow-up with urology along with gynecology in the outpatient setting as discussed. On exam vital signs are stable. Cardio S1, S2 are muffled. Respiratory system shows diminished breath sounds at the bases with no wheezing or rhonchi noted. Abdomen is soft and nontender. Nervous system shows no focal deficits. Please refer to medication reconciliation sheet for a list of medications. Patient Condition at Discharge: Stable Plan - Discharge Summary New Discharge Prescriptions: New Docusate [Colace] 100 mg PO BID 30 Days #60 cap polyethylene glycoL 3350 [Miralax] 17 gm PO DAILY 30 Days #30 powd.pack Zinc Sulfate [Orazinc] 220 mg PO DAILY 30 Days #30 cap Benzonatate [Tessalon Perles] 100 mg PO TID PRN #30 cap PRN Reason: Cough Acetaminophen Tab [Tylenol] 650 mg PO Q6HR PRN #30 tab PRN Reason: Mild Pain Or Fever > 100.5 Ascorbic Acid [Vitamin C] 1,000 mg PO DAILY 30 Days #60 tab Cholecalciferol [Vitamin D3 (25 Mcg = 1000 Iu)] 100 mcg PO DAILY 30 Days #120 tablet Oxymetazoline 0.05% Nasl Talcott [Afrin 0.05% Nasal Talcott] 2 spray NASAL BID #1 bottle Aspirin 81 mg PO DAILY 30 Days #30 chewable Dexamethasone 6 mg PO DAILY 7 Days #7 tablet Famotidine [Pepcid] 20 mg PO BID 30 Days #60 tab Sennosides-Docusate Sodium [Senokot-S] 1 each PO INIGUEZ #10 tab Continue Metoprolol Tartrate [Lopressor] 25 mg PO BID@0600,1800 Multivitamins, Thera [Multivitamin (formulary)] 1 tab PO HS@1800 Ondansetron Odt [Zofran ODT] 4 mg PO Q8HR PRN #14 tab PRN Reason: Nausea Discontinued Sulfamethox-Tmp 800-160Mg [Bactrim Ds] 1 tab PO Q12HR Discharge Medication List Metoprolol Tartrate [Lopressor] 25 mg PO BID@0600,1800 07/09/17 [History] Multivitamins, Thera [Multivitamin (formulary)] 1 tab PO HS@1800 09/12/17 [History] Ondansetron Odt [Zofran ODT] 4 mg PO Q8HR PRN #14 tab 10/24/20 [Rx] Acetaminophen Tab [Tylenol] 650 mg PO Q6HR PRN #30 tab 11/13/20 [Rx] Ascorbic Acid [Vitamin C] 1,000 mg PO DAILY 30 Days #60 tab 11/13/20 [Rx] Aspirin 81 mg PO DAILY 30 Days #30 chewable 11/13/20 [Rx] Benzonatate [Tessalon Perles] 100 mg PO TID PRN #30 cap 11/13/20 [Rx] Cholecalciferol [Vitamin D3 (25 Mcg = 1000 Iu)] 100 mcg PO DAILY 30 Days #120 tablet 11/13/20 [Rx] Dexamethasone 6 mg PO DAILY 7 Days #7 tablet 11/13/20 [Rx] Docusate [Colace] 100 mg PO BID 30 Days #60 cap 11/13/20 [Rx] Famotidine [Pepcid] 20 mg PO BID 30 Days #60 tab 04/26/21 [Rx] Oxymetazoline 0.05% Nasl Talcott [Afrin 0.05% Nasal Talcott] 2 spray NASAL BID #1 bottle 11/13/20 [Rx] Sennosides-Docusate Sodium [Senokot-S] 1 each PO INIGUEZ #10 tab 11/13/20 [Rx] Zinc Sulfate [Orazinc] 220 mg PO DAILY 30 Days #30 cap 11/13/20 [Rx] polyethylene glycoL 3350 [Miralax] 17 gm PO DAILY 30 Days #30 powd.pack 11/13/20 [Rx] Follow up Appointment(s)/Referral(s): Erasmo Edward DO [Primary Care Provider] - 1-2 days Max Wilson MD [STAFF PHYSICIAN] - 1 Week (telehealth appt) Patient Instructions/Handouts: Coronavirus Disease 2019 (COVID-19), Sepsis (GEN), Tachycardia (ED) Activity/Diet/Wound Care/Special Instructions: Activity Limited until follow-up Follow up with primary care provider upon discharge Encourage fluids and rest Continue to isolate for an additional one week, frequent handwashing, facemask, social distancing Monitor for fever and treat with Tylenol and/or Motrin follow up with pulmonary outpatient in one week Continue with oxygen at 2 L secondary to COVID-19 pneumonia Continue with dexamethasone for the next 7 days until finished Continue with bowel regimen and hold stool softeners with loose stools Continue current heart healthy diet Continue with incentive spirometer at least 10 times every hour while awake Discharge Disposition: HOME SELF-CARE <FabriciodoloresNancy - Last Filed: 11/13/20 18:42> Providers Date of admission: 10/30/20 03:02 Attending physician: Forrest Ames Consults: 10/30/20 06:18 Consult Physician Urgent Consulting Provider: Max Wilson Consult Reason/Comments: covid pneumonia with hypoxemia Do you want consulting provider notified?: Yes 11/01/20 10:39 Consult Physician Routine Consulting Provider: Marilynn Russell Consult Reason/Comments: hypoxia/covid Do you want consulting provider notified?: Already Contacted Primary care physician: Erasmo [facility] Hospital Course: Patient also had a CT of the abdomen done showing large cystic thin-walled pelvic fluid collection which could be a large ovarian cyst that has been present for many years. Patient states that she is aware about the cystic mass. Advised follow up with PCP or her [facility].
== END 2020-11-13 18:35 | disposition home or self-care (01) | DRG 871 ==
LOC: EC 23:35 → 4SSUR 10-30 03:02 → 3SCARD 11-02 09:16
PROVIDERS: ADMIT Hospitalist; ATTEND Hospitalist
PROC: 3E0333Z Introduction of Anti-inflammatory into Peripheral Vein, Percutaneous Approach (ICD-10-PCS; 2020-10-29)
PROC: XW033E5 Introduction of Remdesivir Anti-infective into Peripheral Vein, Percutaneous Approach, New Technology Group 5 (ICD-10-PCS; 2020-10-30)
PROC: 5A0945A Assistance with Respiratory Ventilation, 24-96 Consecutive Hours, High Flow/Velocity Cannula (ICD-10-PCS; 2020-10-30)
PROC: XW033H5 Introduction of Tocilizumab into Peripheral Vein, Percutaneous Approach, New Technology Group 5 (ICD-10-PCS; principal; 2020-11-01)
PROC: 5A09557 Assistance with Respiratory Ventilation, Greater than 96 Consecutive Hours, Continuous Positive Airway Pressure (ICD-10-PCS; 2020-11-01)
DX: A41.89 Other specified sepsis (principal); J96.01 Acute respiratory failure with hypoxia; J12.82 Pneumonia due to coronavirus disease 2019; U07.1 COVID-19; N39.0 Urinary tract infection, site not specified; G82.20 Paraplegia, unspecified; D50-D89 Diseases of the blood and blood-forming organs and certain disorders involving the immune mechanism; Q05.9 Spina bifida, unspecified; Z87.442 Personal history of urinary calculi; Z79.899 Other long term (current) drug therapy; Z98.2 Presence of cerebrospinal fluid drainage device; R65.20 Severe sepsis without septic shock; F41.9 Anxiety disorder, unspecified; K21.9 Gastro-esophageal reflux disease without esophagitis; K59.00 Constipation, unspecified; N31.9 Neuromuscular dysfunction of bladder, unspecified; N81.2 Incomplete uterovaginal prolapse; Z86.14 Personal history of Methicillin resistant Staphylococcus aureus infection; Z87.440 Personal history of urinary (tract) infections; Z99.3 Dependence on wheelchair; Z91.040 Latex allergy status; T38.0X5A Adverse effect of glucocorticoids and synthetic analogues, initial encounter; D72.810 Lymphocytopenia
CPT/HCPCS: 36415; 71045; 71275; 74019; 74176; 76857; 80048; 80053; 82728; 83605; 83615; 83735; 84145; 85025; 85379; 85610; 85730; 86140; 87040; 93005; 94660; 94760; 96361; 96374; 99285

== ENCOUNTER 2021-05-31 06:45 | Emergency (ER) | payer OTHER ==
[2021-05-31] MEDS ORDERED: SODIUM CHLORIDE 0.9% 500 ML 500 ML IV ONE (07:08)
[2021-05-31] MEDS ORDERED: SODIUM CHLORIDE 0.9% 1,000 ML IV ONE (07:08)
[2021-05-31] MEDS ORDERED: ACETAMINOPHEN TAB 325 MG TAB PO STA (07:10)
[2021-05-31 07:14] VITALS: RESP 18; TEMP 99
--- NOTE | 2021-05-31 08:01 | XR ---
EXAMINATION TYPE: XR chest 2V DATE OF EXAM: 05/31/2021 COMPARISON: Chest x-ray November 07, 2020 HISTORY: Cough and congestion. TECHNIQUE: Frontal and lateral views of the chest are obtained. FINDINGS: Overlying right-sided LATHMAKER shunt catheter redemonstrated. Persistent low lung volumes. Cardia c silhouette size is stable and within normal limits. Underlying scoliosis with surgical correction n ear the thoracolumbar junction redemonstrated. No suspicious focal airspace opacity, pleural effusion , or pneumothorax seen currently. IMPRESSION: Lung volumes redemonstrated. No new acute infiltrate identified currently.
[2021-05-31 08:02] LABS: Basophils % (A) 0 %; Eosinophils % (A) 0 %; HCT 43.9 % (34.0-46.0); HGB 14.6 gm/dL (11.4-16.0); Lymphocytes # (A) 1.2 k/uL (1.0-4.8); Lymphocytes % (A) 24 %; MCH 29.9 pg (25.0-35.0); MCHC 33.2 g/dL (31.0-37.0); MCV 90.2 fL (80.0-100.0); Mean Platelet Volume 6.8; Monocytes # (A) 0.5 k/uL (0-1.0); Monocytes % (A) 9 %; Neutrophils # (A) 3.4 k/uL (1.3-7.7); Neutrophils % (A) 64 %; Platelet Count 301 k/uL (150-450); RBC 4.87 m/uL (3.80-5.40); RDW 13.4 % (11.5-15.5); WBC 5.2 k/uL (3.8-10.6)
--- NOTE | 2021-05-31 08:13 | ED ---
General Adult HPI - General Chief complaint: ENT Stated complaint: Sore throat, Shortness of Breath Time Seen by Provider: 05/31/21 06:55 Source: patient, RN notes reviewed Mode of arrival: wheelchair Limitations: physical limitation - History of Present Illness Initial comments: 30-year-old female presents emergency Department chief complaint of cough c ongestion sore throat. Patient states she's been sick last few days she was recently seen at urgent care who told her cervical spine. She had a negative strep. Patient states the cough congestion is getting worse. Patient does not currently on antibiotics for urinary tract infection. She reports no fever no chills. She has no current abdominal pain. Patient has recurrent urinary tract infection secondary to her spina bifida, wheelchair bound. Patient denies any sick contacts. Patient states that she did wheel herself in and feels that her heart is racing denies any associated chest pain. - Related Data Home Medications Medication Instructions Recorded Confirmed Metoprolol Tartrate [Lopressor] 25 mg PO BID@0600,1800 07/09/17 05/31/21 Multivitamins, Thera [Multivitamin 1 tab PO DAILY 09/12/17 05/31/21 (formulary)] Sulfamethox-Tmp 800-160Mg [Bactrim 1 tab PO Q12HR 05/31/21 05/31/21 DS 800-160 mg] polyethylene glycoL 3350 [Miralax] 17 gm PO Q48H 05/31/21 05/31/21 Allergies Allergy/AdvReac Type Severity Reaction Status Date / Time latex AdvReac Fever from Verified 05/31/21 08:27 cath Review of Systems ROS Statement: Those systems with pertinent positive or pertinent negative responses have been documented in the HPI. ROS Other: All systems not noted in ROS Statement are negative. 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 covid 11/08 History of Any Multi-Drug Resistant Organisms: MRSA Date of last positivie culture/infection: 12/05/18 MDRO Source:: Left Ankle Past Surgical History: Back Surgery, Bladder Surgery, Hernia Repair, Orthopedic Surgery Additional Past Surgical History / Comment(s): Multi orthopedic surgeries since childhood. [employer] shunt. Past Anesthesia/Blood Transfusion Reactions: No Reported Reaction Past Psychological History: No Psychological Hx Reported Smoking Status: Never smoker Past Alcohol Use History: None Reported Past Drug Use History: None Reported - Past Family History Mother Family Medical History: Cancer Additional Family Medical History / Comment(s): grandparents - lung Father History Unknown: Yes General Exam Limitations: physical limitation General appearance: alert, in no apparent distress Head exam: Present: atraumatic, normocephalic, normal inspection Eye exam: Present: normal appearance, PERRL, EOMI. Absent: scleral icterus, conjunctival injection, periorbital swelling ENT exam: Present: normal exam, normal oropharynx, mucous membranes moist, TM's normal bilaterally Neck exam: Present: normal inspection, full ROM. Absent: tenderness, meningismus, lymphadenopathy Respiratory exam: Present: normal lung sounds bilaterally. Absent: respiratory distress, wheezes, rales, rhonchi, stridor Cardiovascular Exam: Present: normal rhythm, tachycardia, normal heart sounds. Absent: systolic murmur, diastolic murmur, rubs, gallop, clicks GI/Abdominal exam: Present: soft, normal bowel sounds. Absent: distended, tenderness, guarding, rebound, rigid Course Vital Signs 05/31/21 05/31/21 05/31/21 06:52 07:13 08:37 Temperature 98.8 F 99 F Pulse Rate 144 H 132 H 98 Respiratory 22 18 18 Rate Blood Pressure 127/82 117/60 112/68 O2 Sat by Pulse 98 98 99 Oximetry EKG Findings - EKG Comments: EKG Findings:: EKG performed at 17:26 sinus tachycardia rate of 121 TN 134 QRS 74 QT status QTC 338/479 Medical Decision Making - Medical Decision Making 30-year-old female presented for URI symptoms. Patient found to be tachycardic, labs EKG was initiated fluids were given, antipyretics. Heart rate is improved. Patient has negative COVID-19 negative strep. Patient has a viral URI she does have evidence of urinary tract infection is on antibiotics is scheduled to have follow-up today for possible change of antibiotics. - Lab Data Result diagrams: 05/31/21 07:43 05/31/21 07:43 Lab Results 05/31/21 05/31/21 05/31/21 Range/Units 07:38 07:43 07:43 WBC 5.2 (3.8-10.6) k/uL RBC 4.87 (3.80-5.40) m/uL Hgb 14.6 (11.4-16.0) gm/dL Hct 43.9 (34.0-46.0) % MCV 90.2 (80.0-100.0) fL MCH 29.9 (25.0-35.0) pg MCHC 33.2 (31.0-37.0) g/dL RDW 13.4 (11.5-15.5) % Plt Count 301 (150-450) k/uL MPV 6.8 Neutrophils % 64 % Lymphocytes % 24 % Monocytes % 9 % Eosinophils % 0 % Basophils % 0 % Neutrophils # 3.4 (1.3-7.7) k/uL Lymphocytes # 1.2 (1.0-4.8) k/uL Monocytes # 0.5 (0-1.0) k/uL Eosinophils # 0.0 (0-0.7) k/uL Basophils # 0.0 (0-0.2) k/uL Sodium 138 (137-145) mmol/L Potassium 3.7 (3.5-5.1) mmol/L Chloride 104 (98-107) mmol/L Carbon Dioxide 21 L (22-30) mmol/L Anion Gap 13 mmol/L BUN 16 (7-17) mg/dL Creatinine 0.74 (0.52-1.04) mg/dL Est GFR (CKD-EPI)AfAm >90 (>60 ml/min/1.73 sqM) Est GFR (CKD-EPI)NonAf >90 (>60 ml/min/1.73 sqM) Glucose 81 (74-99) mg/dL Plasma Lactic Acid Mauro (0.7-2.0) mmol/L Calcium 9.5 (8.4-10.2) mg/dL Total Bilirubin 0.4 (0.2-1.3) mg/dL AST 25 (14-36) U/L ALT 16 (4-34) U/L Alkaline Phosphatase 67 (38-126) U/L Total Protein 7.6 (6.3-8.2) g/dL Albumin 4.4 (3.5-5.0) g/dL Urine Color Urine Appearance (Clear) Urine pH (5.0-8.0) Ur Specific [place] (1.001-1.035) Urine Protein (Negative) Urine Glucose (UA) (Negative) Urine Ketones (Negative) Urine Blood (Negative) Urine Nitrite (Negative) Urine Bilirubin (Negative) Urine Urobilinogen (<2.0) mg/dL Ur Leukocyte Esterase (Negative) Urine RBC (0-5) /hpf Urine WBC (0-5) /hpf Ur Squamous Epith Cells (0-4) /hpf Urine Bacteria (None) /hpf Urine Mucus (None) /hpf Coronavirus (PCR) Not Detected (Not Detectd) Group A Strep Rapid (Negative) 05/31/21 05/31/21 05/31/21 Range/Units 07:43 07:43 08:21 WBC (3.8-10.6) k/uL RBC (3.80-5.40) m/uL Hgb (11.4-16.0) gm/dL Hct (34.0-46.0) % MCV (80.0-100.0) fL MCH (25.0-35.0) pg MCHC (31.0-37.0) g/dL RDW (11.5-15.5) % Plt Count (150-450) k/uL MPV Neutrophils % % Lymphocytes % % Monocytes % % Eosinophils % % Basophils % % Neutrophils # (1.3-7.7) k/uL Lymphocytes # (1.0-4.8) k/uL Monocytes # (0-1.0) k/uL Eosinophils # (0-0.7) k/uL Basophils # (0-0.2) k/uL Sodium (137-145) mmol/L Potassium (3.5-5.1) mmol/L Chloride (98-107) mmol/L Carbon Dioxide (22-30) mmol/L Anion Gap mmol/L BUN (7-17) mg/dL Creatinine (0.52-1.04) mg/dL Est GFR (CKD-EPI)AfAm (>60 ml/min/1.73 sqM) Est GFR (CKD-EPI)NonAf (>60 ml/min/1.73 sqM) Glucose (74-99) mg/dL Plasma Lactic Acid [place]uro 1.0 (0.7-2.0) mmol/L Calcium (8.4-10.2) mg/dL Total Bilirubin (0.2-1.3) mg/dL AST (14-36) U/L ALT (4-34) U/L Alkaline Phosphatase (38-126) U/L Total Protein (6.3-8.2) g/dL Albumin (3.5-5.0) g/dL Urine Color Yellow Urine Appearance Turbid H (Clear) Urine pH 5.5 (5.0-8.0) Ur Specific [place] 1.017 (1.001-1.035) Urine Protein Trace H (Negative) Urine Glucose (UA) Negative (Negative) Urine Ketones 1+ H (Negative) Urine Blood Negative (Negative) Urine Nitrite Negative (Negative) Urine Bilirubin Negative (Negative) Urine Urobilinogen <2.0 (<2.0) mg/dL Ur Leukocyte Esterase Trace H (Negative) Urine RBC 6 H (0-5) /hpf Urine WBC 86 H (0-5) /hpf Ur Squamous Epith Cells <1 (0-4) /hpf Urine Bacteria Rare H (None) /hpf Urine Mucus Rare H (None) /hpf Coronavirus (PCR) (Not Detectd) Group A Strep Rapid Negative (Negative) Disposition Clinical Impression: UTI (urinary tract infection), URI (upper respiratory infection) Disposition: HOME SELF-CARE Condition: Stable Instructions (If sedation given, give patient instructions): Urinary Tract Infection in Women (DC) Additional Instructions: Please return to the Emergency Department if symptoms worsen or any other concerns. Is patient prescribed a controlled substance at d/c from ED?: No Referrals: Erasmo Edward DO [Primary Care Provider] - 1-2 days Time of Disposition: 09:42
[2021-05-31 08:15] LABS: ALT 16 U/L (4-34); AST 25 U/L (14-36); African American GFR (CKD) >90 (>60 ml/min/1.73 sqM); Albumin 4.4 g/dL (3.5-5.0); Alkaline Phosphatase 67 U/L (38-126); Anion Gap 13 mmol/L; Blood Urea Nitrogen 16 mg/dL (7-17); Calcium 9.5 mg/dL (8.4-10.2); Carbon Dioxide 21 mmol/L (22-30); Chloride 104 mmol/L (98-107); Glucose 81 mg/dL (74-99); Non-African American GFR(CKD) >90 (>60 ml/min/1.73 sqM); Potassium 3.7 mmol/L (3.5-5.1); Sodium 138 mmol/L (137-145); Total Bilirubin 0.4 mg/dL (0.2-1.3); Total Protein 7.6 g/dL (6.3-8.2)
[2021-05-31 08:38] VITALS: BP 112/68; PULSE 98
[2021-05-31 08:49] LABS: Appearance,Urine Turbid (Clear); Bacteria,Urine Rare /hpf; Bilirubin,Urine Negative (Negative); Blood,Urine Negative (Negative); Color,Urine Yellow; Glucose,Urine (UA) Negative (Negative); Ketones,Urine 1+ (Negative); Leukocyte Esterase,Urine Trace (Negative); Mucus,Urine Rare /hpf; Nitrite,Urine Negative (Negative); PH, Urine 5.5 (5.0-8.0); Protein,Urine Trace (Negative); RBC,Urine 6 /hpf (0-5); Specific Gravity,Urine 1.017 (1.001-1.035); Squamous Epithelial Cell,Urine <1 /hpf (0-4); Urobilinogen,Urine <2.0 mg/dL (<2.0); WBC,Urine 86 /hpf (0-5)
[2021-05-31] MEDS ORDERED: cefTRIAXone IN SWFI 1,000 MG/10 ML SYRINGE IVP STA (09:38)
== END 2021-05-31 10:23 | disposition home or self-care (01) ==
LOC: EC 06:45
DX: J06.9 Acute upper respiratory infection, unspecified (principal); N39.0 Urinary tract infection, site not specified; Z20.822 Contact with and (suspected) exposure to COVID-19; Z91.040 Latex allergy status; Z87.442 Personal history of urinary calculi; Z87.440 Personal history of urinary (tract) infections; Z86.16 Personal history of COVID-19
CPT/HCPCS: 96361 ×2; 96374 ×2; 99284 ×2; 96375; 36415; 93005; 80053; 83605; 85025; 81001; 87086; 87081; 87430; 87635; 71046; J0696

== ENCOUNTER 2021-08-02 20:23 | Emergency (ER) | payer OTHER ==
[2021-08-02 20:28] VITALS: BP 137/88; PULSE 98; RESP 18; TEMP 97.3
[2021-08-02] MEDS ORDERED: MORPHINE SULFATE 4 MG/ML SYRINGE IM STA (20:46)
[2021-08-02] MEDS ORDERED: TRIMETHOBENZAMIDE 100 MG/ML 2 ML VIAL IM STA (20:47)
--- NOTE | 2021-08-02 20:50 | ED ---
General Adult HPI - General Chief complaint: Urogenital Stated complaint: Painful Urination,Nausea Time Seen by Provider: 08/02/21 20:40 Source: patient, family, RN notes reviewed, old records reviewed Mode of arrival: ambulatory Limitations: no limitations - History of Present Illness Initial comments: 30-year-old female with alert and oriented 4, presents to the emergency room with complaints of dysuria that started around 8:00 this evening. She has a history of multiple urinary tract infections in the past. She does straight cath herself 4 times a day history of spina bifida. 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 She denies any fevers but does state she has nausea ,no vomiting or diarrhea. -: hour(s) (1) Location: pelvis (suprapubic) Radiation: non-radiation Severity scale (1-10): 7 Quality: constant Consistency: constant Associated Symptoms: nausea/vomiting, other (dysuria) - Related Data Home Medications Medication Instructions Recorded Confirmed Metoprolol Tartrate [Lopressor] 25 mg PO BID@0600,1800 07/09/17 08/02/21 Multivitamins, Thera [Multivitamin 1 tab PO HS 09/12/17 08/02/21 (formulary)] Previous Rx's Medication Instructions Recorded Sulfamethox-Tmp 800-160Mg [Bactrim 1 each PO Q12HR 5 Days #10 tab 08/02/21 Ds] Allergies Allergy/AdvReac Type Severity Reaction Status Date / Time latex AdvReac Fever from Verified 08/02/21 21:11 cath Review of Systems ROS Statement: Those systems with pertinent positive or pertinent negative responses have been documented in the HPI. ROS Other: All systems not noted in ROS Statement are negative. 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 covid 11/08 History of Any Multi-Drug Resistant Organisms: MRSA Date of last positivie culture/infection: 12/05/18 MDRO Source:: Left Ankle Past Surgical History: Back Surgery, Bladder Surgery, Hernia Repair, Orthopedic Surgery Additional Past Surgical History / Comment(s): Multi orthopedic surgeries since childhood. [employer] shunt. Past Anesthesia/Blood Transfusion Reactions: No Reported Reaction Past Psychological History: No Psychological Hx Reported Smoking Status: Never smoker Past Alcohol Use History: None Reported Past Drug Use History: None Reported - Past Family History Mother Family Medical History: Cancer Additional Family Medical History / Comment(s): grandparents - lung Father History Unknown: Yes General Exam Limitations: physical limitation (Spina bifida wheelchair) General appearance: alert, in no apparent distress Head exam: Present: atraumatic, normocephalic, normal inspection Eye exam: Present: normal appearance, EOMI. Absent: scleral icterus, conjunctival injection, periorbital swelling ENT exam: Present: normal exam, normal oropharynx, mucous membranes moist Neck exam: Present: normal inspection, full ROM. Absent: tenderness, meningismus, lymphadenopathy Respiratory exam: Present: normal lung sounds bilaterally. Absent: respiratory distress, wheezes, rales, rhonchi, stridor, chest wall tenderness, accessory muscle use, decreased breath sounds Cardiovascular Exam: Present: regular rate, normal rhythm, normal heart sounds. Absent: systolic murmur, diastolic murmur, rubs, gallop, clicks GI/Abdominal exam: Present: soft, tenderness (suprapubic ). Absent: distended, guarding, rebound, rigid Back exam: Present: other (Old surgical scars lumbar sacral spine). Absent: tenderness, CVA tenderness (R), CVA tenderness (L), rash noted Neurological exam: Present: alert, oriented X3 Psychiatric exam: Present: normal affect, normal mood Skin exam: Present: warm, dry, intact, normal color. Absent: rash, cyanosis, diaphoretic Course Vital Signs 08/02/21 20:25 Temperature 97.3 F L Pulse Rate 98 Respiratory 18 Rate Blood Pressure 137/88 O2 Sat by Pulse 97 Oximetry Medical Decision Making - Medical Decision Making Patient presents to emergency room with suprapubic abdominal pain consistent with previous urinary tract infections that she's had in the past. She does self cath at home due to spina bifida. She denies any fevers but does have nausea. She has no CVA tenderness. Abdomen is soft with suprapubic tenderness consistent with UTI. She was given Tigan in the emergency room in addition to bactrim. She'll be prescribed Bactrim and directed to return to the emergency room with any new or worsening symptoms including fevers, increased pain or vomiting, patient is agreeable to this plan of care. Case discussed with Dr. Sapp - Lab Data Lab Results 08/02/21 Range/Units 20:44 Urine Color Yellow Urine Appearance Turbid H (Clear) Urine pH 5.5 (5.0-8.0) Ur Specific [place] 1.018 (1.001-1.035) Urine Protein 1+ H (Negative) Urine Glucose (UA) Negative (Negative) Urine Ketones Negative (Negative) Urine Blood Trace H (Negative) Urine Nitrite Negative (Negative) Urine Bilirubin Negative (Negative) Urine Urobilinogen <2.0 (<2.0) mg/dL Ur Leukocyte Esterase Large H (Negative) Urine RBC 18 H (0-5) /hpf Urine WBC >182 H (0-5) /hpf Urine WBC Clumps Few H (None) /hpf Ur Squamous Epith Cells 2 (0-4) /hpf Urine Bacteria Occasional H (None) /hpf Urine Mucus Rare H (None) /hpf Disposition Clinical Impression: UTI (urinary tract infection) Disposition: HOME SELF-CARE Condition: Good Instructions (If sedation given, give patient instructions): Urinary Tract Infection in Women (ED) Additional Instructions: Take antibiotics as prescribed and follow-up with your primary care doctor this week. Return to the emergency room with any new or worsening symptoms including vomiting, increased abdominal pain, fevers or back pain. Prescriptions: Sulfamethox-Tmp 800-160Mg [Bactrim Ds] 1 each PO Q12HR 5 Days #10 tab Is patient prescribed a controlled substance at d/c from ED?: No Referrals: Erasmo Edward DO [Primary Care Provider] - 1-2 days Time of Disposition: 21:31
[2021-08-02 20:56] LABS: Appearance,Urine Turbid (Clear); Bacteria,Urine Occasional /hpf; Bilirubin,Urine Negative (Negative); Blood,Urine Trace (Negative); Color,Urine Yellow; Glucose,Urine (UA) Negative (Negative); Ketones,Urine Negative (Negative); Leukocyte Esterase,Urine Large (Negative); Mucus,Urine Rare /hpf; Nitrite,Urine Negative (Negative); PH, Urine 5.5 (5.0-8.0); Protein,Urine 1+ (Negative); RBC,Urine 18 /hpf (0-5); Specific Gravity,Urine 1.018 (1.001-1.035); Squamous Epithelial Cell,Urine 2 /hpf (0-4); Urobilinogen,Urine <2.0 mg/dL (<2.0); WBC,Urine >182 /hpf (0-5)
[2021-08-02] MEDS ORDERED: SULFAMETHOX-TMP 800-160MG 1 EACH TAB PO STA (21:27)
[2021-08-02] MEDS ORDERED: ONDANSETRON 4 MG ODT STARTER PACK 2 TAB BTL PO STA (21:28)
[2021-08-02] MEDS ORDERED: SULFAMETH-TMP DS STARTER PACK 2 TAB BTL PO STA (21:28)
== END 2021-08-02 22:07 | disposition home or self-care (01) ==
LOC: EC 20:23
DX: N39.0 Urinary tract infection, site not specified (principal); Z91.040 Latex allergy status; Z87.442 Personal history of urinary calculi
CPT/HCPCS: 99283; 96372 ×2; 81001; 81025; 87086; 87077; 87186; J2270; J3250; S0119

== ENCOUNTER 2021-10-19 03:28 | Emergency (ER) | payer OTHER ==
[2021-10-19 04:02] VITALS: TEMP 98.8
[2021-10-19 05:18] LABS: Appearance,Urine Turbid (Clear); Bacteria,Urine Occasional /hpf; Bilirubin,Urine Negative (Negative); Blood,Urine Negative (Negative); Color,Urine Yellow; Glucose,Urine (UA) Negative (Negative); Ketones,Urine Negative (Negative); Leukocyte Esterase,Urine Large (Negative); Mucus,Urine Rare /hpf; Nitrite,Urine Negative (Negative); Protein,Urine 1+ (Negative); RBC,Urine 2 /hpf (0-5); Specific Gravity,Urine 1.017 (1.001-1.035); Squamous Epithelial Cell,Urine 3 /hpf (0-4); Urobilinogen,Urine <2.0 mg/dL (<2.0); WBC,Urine >182 /hpf (0-5)
[2021-10-19] MEDS ORDERED: LEVOFLOXACIN 500 MG TAB PO STA (05:55)
--- NOTE | 2021-10-19 05:57 | ED ---
Female Urogenital HPI - General Chief complaint: Urogenital Stated complaint: Congestion, Chest Pain, UTI Time Seen by Provider: 10/19/21 04:26 Source: patient Mode of arrival: ambulatory - History of Present Illness Initial comments: Patient is 31-year-old woman who states that she feels as if a urinary tract infection is developing. She states that she gets certain sensation in the suprapubic area as well as some urinary frequency. In addition, patient is having some sinus congestion and pressure. Patient has not had any definite fever or chills. No abdominal pain. No vomiting or diarrhea. MD Complaint: dysuria Onset/Timin -: days(s) Location: suprapubic Radiation: non-radiating Severity: mild Quality: cramping, burning Consistency: intermittent Improves with: none Worsens with: urination - Related Data Home Medications Medication Instructions Recorded Confirmed Metoprolol Tartrate [Lopressor] 25 mg PO BID@0600,1800 07/09/17 08/02/21 Multivitamins, Thera [Multivitamin 1 tab PO HS 09/12/17 08/02/21 (formulary)] Previous Rx's Medication Instructions Recorded Sulfamethox-Tmp 800-160Mg [Bactrim 1 each PO Q12HR 5 Days #10 tab 08/02/21 Ds] Ciprofloxacin HCl [Cipro] 500 mg PO Q12HR #14 tablet 10/19/21 Allergies Allergy/AdvReac Type Severity Reaction Status Date / Time latex AdvReac Fever from Verified 10/19/21 04:02 cath Review of Systems ROS Statement: Those systems with pertinent positive or pertinent negative responses have been documented in the HPI. ROS Other: All systems not noted in ROS Statement are negative. Constitutional: Denies: fever, chills ENT: Reports: congestion. Denies: ear pain Respiratory: Denies: cough, dyspnea Cardiovascular: Denies: chest pain, palpitations, edema Gastrointestinal: Denies: abdominal pain, vomiting, diarrhea Genitourinary: Reports: dysuria, frequency. 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 covid 11/08 History of Any Multi-Drug Resistant Organisms: MRSA Date of last positivie culture/infection: 12/05/18 MDRO Source:: Left Ankle Past Surgical History: Back Surgery, Bladder Surgery, Hernia Repair, Orthopedic Surgery Additional Past Surgical History / Comment(s): Multi orthopedic surgeries since childhood. [employer] shunt. Past Anesthesia/Blood Transfusion Reactions: No Reported Reaction Past Psychological History: No Psychological Hx Reported Smoking Status: Never smoker Past Alcohol Use History: None Reported Past Drug Use History: None Reported - Past Family History Mother Family Medical History: Cancer Additional Family Medical History / Comment(s): grandparents - lung Father History Unknown: Yes General Exam General appearance: alert, in no apparent distress Head exam: Present: atraumatic, normocephalic Eye exam: Present: normal appearance. Absent: scleral icterus, conjunctival injection Neck exam: Present: normal inspection Respiratory exam: Present: normal lung sounds bilaterally. Absent: respiratory distress, wheezes, rales, rhonchi, stridor Cardiovascular Exam: Present: regular rate, normal rhythm, normal heart sounds. Absent: systolic murmur, diastolic murmur, rubs, gallop GI/Abdominal exam: Present: soft. Absent: distended, tenderness, guarding, rebound, rigid, mass Extremities exam: Present: normal inspection Neurological exam: Present: alert Skin exam: Present: warm, dry, intact, normal color. Absent: rash Course Vital Signs 10/19/21 10/19/21 10/19/21 03:58 04:02 06:02 Temperature 98.8 F Pulse Rate 110 H 77 81 Respiratory 18 16 18 Rate Blood Pressure 119/83 122/77 133/87 O2 Sat by Pulse 97 99 99 Oximetry 10/19/21 06:28 Temperature Pulse Rate 78 Respiratory 18 Rate Blood Pressure 110/74 O2 Sat by Pulse 100 Oximetry Medical Decision Making - Lab Data Lab Results 10/19/21 10/19/21 10/19/21 Range/Units 04:53 04:53 04:54 Urine Color Yellow Urine Appearance Turbid H (Clear) Urine pH 6.0 (5.0-8.0) Ur Specific [place] 1.017 (1.001-1.035) Urine Protein 1+ H (Negative) Urine Glucose (UA) Negative (Negative) Urine Ketones Negative (Negative) Urine Blood Negative (Negative) Urine Nitrite Negative (Negative) Urine Bilirubin Negative (Negative) Urine Urobilinogen <2.0 (<2.0) mg/dL Ur Leukocyte Esterase Large H (Negative) Urine RBC 2 (0-5) /hpf Urine WBC >182 H (0-5) /hpf Ur Squamous Epith Cells 3 (0-4) /hpf Urine Bacteria Occasional H (None) /hpf Urine Mucus Rare H (None) /hpf Urine HCG, Qual Not Detected (Not Detectd) Coronavirus (PCR) Not Detected (Not Detectd) Disposition Clinical Impression: UTI (urinary tract infection) Disposition: HOME SELF-CARE Condition: Fair Instructions (If sedation given, give patient instructions): Urinary Tract Infection in Women (ED) Prescriptions: Ciprofloxacin HCl [Cipro] 500 mg PO Q12HR #14 tablet Is patient prescribed a controlled substance at d/c from ED?: No Referrals: Erasmo Edward DO [Primary Care Provider] - 1-2 days
[2021-10-19 06:53] VITALS: RESP 18
[2021-10-19 06:56] VITALS: BP 110/74; PULSE 78
== END 2021-10-19 06:31 | disposition home or self-care (01) ==
LOC: EC 03:28
DX: N39.0 Urinary tract infection, site not specified (principal); Z91.040 Latex allergy status; Z87.442 Personal history of urinary calculi; Z20.822 Contact with and (suspected) exposure to COVID-19
CPT/HCPCS: 81001; 81025; 87086; 87635; 99283

== ENCOUNTER 2022-05-17 20:50 | Emergency (ER) | payer OTHER ==
[2022-05-17 21:00] VITALS: RESP 18; TEMP 98.3
--- NOTE | 2022-05-17 21:56 | XR ---
EXAMINATION TYPE: XR hand complete LT DATE OF EXAM: 05/17/2022 COMPARISON: NONE HISTORY: Pain and laceration TECHNIQUE: 3 views FINDINGS: Metacarpals are intact. The fingers appear intact. I see no fracture nor dislocation. Carpa l bones appear normal. No sizable foreign body. IMPRESSION: Negative left hand exam.
[2022-05-18] MEDS ORDERED: BACITRACIN OINT 1 EACH PACKET TOPICAL ONE (01:04)
[2022-05-18] MEDS ORDERED: IBUPROFEN 600 MG TAB PO STA (01:06)
[2022-05-18 01:53] VITALS: BP 110/57; PULSE 110
--- NOTE | 2022-05-18 02:04 | ED ---
General Adult HPI - General Chief complaint: Wound/Laceration Stated complaint: left finger injury Time Seen by Provider: 05/18/22 00:42 Source: patient, RN notes reviewed Mode of arrival: wheelchair Limitations: physical limitation - History of Present Illness Initial comments: 31-year-old female presents to the emergency department for evaluation of injury to the left hand. Patient states she was washing dishes when she to retrieve the utensil that had fallen into the garbage disposal. States the garbage disposal was on and she absentmindedly reached in. Complains of pain to the second and third digits. Bleeding was controlled prior to arrival. She is able to move expected digits without difficulty. Tetanus shot is up to date. Denies any other injuries or concerns at this time. - Related Data Home Medications Medication Instructions Recorded Confirmed Metoprolol Tartrate [Lopressor] 25 mg PO BID@0600,1800 07/09/17 08/02/21 Multivitamins, Thera [Multivitamin 1 tab PO HS 09/12/17 08/02/21 (formulary)] Previous Rx's Medication Instructions Recorded Sulfamethox-Tmp 800-160Mg [Bactrim 1 each PO Q12HR 5 Days #10 tab 08/02/21 Ds] Ciprofloxacin HCl [Cipro] 500 mg PO Q12HR #14 tablet 10/19/21 Allergies Allergy/AdvReac Type Severity Reaction Status Date / Time latex AdvReac Fever from Verified 05/17/22 20:57 cath Review of Systems ROS Statement: Those systems with pertinent positive or pertinent negative responses have been documented in the HPI. ROS Other: All systems not noted in ROS Statement are negative. 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 covid 11/08 History of Any Multi-Drug Resistant Organisms: MRSA Date of last positivie culture/infection: 12/05/18 MDRO Source:: Left Ankle Past Surgical History: Back Surgery, Bladder Surgery, Hernia Repair, Orthopedic Surgery Additional Past Surgical History / Comment(s): Multi orthopedic surgeries since childhood. 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 Past Anesthesia/Blood Transfusion Reactions: No Reported Reaction Past Psychological History: No Psychological Hx Reported Smoking Status: Never smoker Past Alcohol Use History: None Reported Past Drug Use History: None Reported - Past Family History Mother Family Medical History: Cancer Additional Family Medical History / Comment(s): grandparents - lung Father History Unknown: Yes General Exam Limitations: physical limitation General appearance: alert, in no apparent distress, other (Well-developed, well- nourished female in no acute distress. Initial temperature 98.3, pulse 139, recheck 109, respirations 18, blood pressure 132/95, pulse ox 98% on room air.) Respiratory exam: Present: normal lung sounds bilaterally. Absent: respiratory distress, wheezes, rales, rhonchi, stridor Cardiovascular Exam: Present: regular rate, normal rhythm, normal heart sounds. Absent: systolic murmur, diastolic murmur, rubs, gallop, clicks Left Elbow exam: Present: normal inspection, full ROM. Absent: tenderness, swelling Forearm Wrist exam: Present: normal inspection, full ROM. Absent: tenderness, swelling Hand Wrist exam: Present: tenderness (Tenderness upon palpation of the distal phalanx on the third digit), laceration (Less than 0.5 cm superficial laceration to the third digit on the left hand, middle phalanx. ). Absent: deformity Neuro motor exam: Present: other (flexor and extensor tendon intact, 3rd digit) Neurosensory exam: Present: radial nerve intact, median nerve intact Vascular: Present: normal capillary refill, radial pulse. Absent: vascular compromise, Pallo Neurological exam: Present: alert, oriented X3 Psychiatric exam: Present: normal affect, normal mood Course Vital Signs 05/17/22 05/18/22 05/18/22 20:57 00:40 01:53 Temperature 98.3 F Pulse Rate 139 H 114 H 110 H Respiratory 18 18 18 Rate Blood Pressure 132/95 115/84 110/57 O2 Sat by Pulse 98 99 98 Oximetry Medical Decision Making - Medical Decision Making This is a pleasant 31-year-old female who presents to the emergency department for evaluation of injury to left hand, third digit. Upon exam, patient is well- appearing and in no acute distress. Bleeding is controlled prior to arrival. There are tiny superficial lacerations on the third digit, distal phalanx. X- ray was obtained and was negative. Patient was given Motrin for discomfort. Wounds were gently cleansed and bacitracin dressing applied. Instructed on wound care. Encouraged to follow up with PCP for recheck. Return parameters discussed in detail. Patient verbalizes understanding and agrees with this plan . Attending: Geri. - Radiology Data Radiology results: report reviewed, image reviewed Interpreted by me: X-ray of the left hand was obtained. Report was reviewed in its entirety. Impression per Dr. Robledo is negative left hand exam. Disposition Clinical Impression: Superficial laceration of finger, Contusion of finger of left hand Disposition: HOME SELF-CARE Condition: Stable Instructions (If sedation given, give patient instructions): Laceration (ED) Additional Instructions: Gently wash injured areas with mild soap and water. Apply antibiotic ointment to wounds. May apply ice to sore areas. Take Tylenol or Motrin if needed for pain. Monitor carefully for any signs of infection including increased redness or foul-smelling drainage. Follow-up with your PCP for a recheck next week. Return to the emergency department with any new, worsening, or concerning symptoms. Is patient prescribed a controlled substance at d/c from ED?: No Referrals: Erasmo Edward DO [Primary Care Provider] - 1-2 days Time of Disposition: 02:04
== END 2022-05-18 02:07 | disposition home or self-care (01) ==
LOC: EC 20:50
DX: S61.219A Laceration without foreign body of unspecified finger without damage to nail, initial encounter (principal); S60.222A Contusion of left hand, initial encounter; Z91.040 Latex allergy status; X58.XXXA Exposure to other specified factors, initial encounter
CPT/HCPCS: 99283

== ENCOUNTER 2022-05-25 22:43 | Emergency (ER) | payer OTHER ==
[2022-05-25] MEDS ORDERED: ONDANSETRON 4 MG/2 ML VIAL IVP STA (23:01)
[2022-05-25] MEDS ORDERED: SODIUM CHLORIDE 0.9% 1,000 ML IV STA (23:01)
--- NOTE | 2022-05-25 23:06 | ED ---
Female Urogenital HPI - General Source: patient, RN notes reviewed Mode of arrival: wheelchair Limitations: no limitations <Heath Mata - Last Filed: 05/26/22 03:51> <Papito Nevarez - Last Filed: 05/26/22 04:49> - General Chief complaint: Urogenital Stated complaint: UTI Time Seen by Provider: 05/25/22 22:56 - History of Present Illness Initial comments: This is a pleasant 31-year-old female with a history of spina bifida, multiple abdominal surgeries, and recurrent urinary tract infections. Patient has been on Bactrim DS since for a current urinary tract infection but states she is not feeling any better., Patient states she started having some vomiting episodes and then started having nasal congestion and nasal discharge with postnasal drainage. Patient has tried [id number] Sudafed with limited results. Patient has a history of tachycardia. Patient states she's felt febrile but no definitive fever. Some shaking chills. No headache, no fever or chills, no changes in vision or hearing, no sore throat or difficulty with speech, no neck pain, no chest pain or shortness of breath, no abdominal pain, no nausea or vomiting, no changes in urination or bowel movements, no numbness or tingling, no extremity pain, no skin rashes or lesions. Past medical, surgical, social, and family history reviewed. (Heath Mata) - Related Data Home Medications Medication Instructions Recorded Confirmed Metoprolol Tartrate [Lopressor] 25 mg PO BID@0600,1800 07/09/17 08/02/21 Multivitamins, Thera [Multivitamin 1 tab PO HS 09/12/17 08/02/21 (formulary)] Previous Rx's Medication Instructions Recorded Sulfamethox-Tmp 800-160Mg [Bactrim 1 each PO Q12HR 5 Days #10 tab 08/02/21 Ds] Ciprofloxacin HCl [Cipro] 500 mg PO Q12HR #14 tablet 10/19/21 Sulfamethox-Tmp 800-160Mg [Bactrim 1 tab PO Q12HR 7 Days #14 tab 05/26/22 DS 800-160 mg] Allergies Allergy/AdvReac Type Severity Reaction Status Date / Time ceftriaxone [From Rocephin] AdvReac Nausea & Verified 05/26/22 01:50 EDT Vomiting latex AdvReac Fever from Verified 05/25/22 22:53 cath Review of Systems ROS Other: All systems not noted in ROS Statement are negative. <Heath Mata - Last Filed: 05/26/22 03:51> ROS Other: All systems not noted in ROS Statement are negative. <Papito Nevarez - Last Filed: 05/26/22 04:49> ROS Statement: Those systems with pertinent positive or pertinent negative responses have been documented in the HPI. 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 covid 11/08 History of Any Multi-Drug Resistant Organisms: MRSA Date of last positivie culture/infection: 12/05/18 MDRO Source:: Left Ankle Past Surgical History: Back Surgery, Bladder Surgery, Hernia Repair, Orthopedic Surgery Additional Past Surgical History / Comment(s): Multi orthopedic surgeries since childhood. 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 Past Anesthesia/Blood Transfusion Reactions: No Reported Reaction Past Psychological History: No Psychological Hx Reported Smoking Status: Never smoker Past Alcohol Use History: None Reported Past Drug Use History: None Reported - Past Family History Mother Family Medical History: Cancer Additional Family Medical History / Comment(s): grandparents - lung Father History Unknown: Yes <Heath Mata - Last Filed: 05/26/22 03:51> General Exam Limitations: no limitations General appearance: alert, in no apparent distress Head exam: Present: atraumatic, normocephalic, normal inspection Eye exam: Present: normal appearance, PERRL, EOMI. Absent: scleral icterus, conjunctival injection, periorbital swelling ENT exam: Present: normal exam, normal oropharynx, mucous membranes moist, TM's normal bilaterally, normal external ear exam, other (Clear nasal discharge). Absent: mucous membranes dry Neck exam: Present: normal inspection, full ROM. Absent: tenderness, meningismus, lymphadenopathy Respiratory exam: Present: normal lung sounds bilaterally. Absent: respiratory distress, wheezes, rales, rhonchi, stridor, chest wall tenderness, accessory muscle use, decreased breath sounds, prolonged expiratory Cardiovascular Exam: Present: normal rhythm, tachycardia, normal heart sounds. Absent: regular rate, systolic murmur, diastolic murmur, rubs, gallop, clicks GI/Abdominal exam: Present: soft, normal bowel sounds. Absent: distended, tenderness, guarding, rebound, rigid Extremities exam: Present: normal inspection, full ROM, normal capillary refill. Absent: tenderness, pedal edema, joint swelling, calf tenderness Back exam: Present: normal inspection. Absent: CVA tenderness (R), CVA tenderness (L) Neurological exam: Present: alert, oriented X3, CN II-XII intact Psychiatric exam: Present: normal affect, normal mood Skin exam: Present: warm, dry, intact, normal color. Absent: rash <Heath Mata - Last Filed: 05/26/22 03:51> - General Exam Comments Initial Comments: She does not appear to be in any acute distress. Capillary refills less than 2 seconds. There is no mottling. Patient noted to be tachycardic. (Heath Mata) Course <Heath Mata - Luis Miguel Filed: 05/26/22 03:51> Vital Signs 05/25/22 05/26/22 05/26/22 22:50 01:10 EST 01:27 EST Temperature 99.3 F 97.8 F Pulse Rate 132 H 129 H Respiratory 20 16 Rate Blood Pressure 134/77 98/45 115/74 O2 Sat by Pulse 98 100 Oximetry 05/26/22 05/26/22 05/26/22 02:41 03:30 03:50 Temperature Pulse Rate 120 H 124 H 122 H Respiratory 16 16 Rate Blood Pressure 100/57 110/53 O2 Sat by Pulse 99 Oximetry 05/26/22 04:30 Temperature Pulse Rate 120 H Respiratory 16 Rate Blood Pressure O2 Sat by Pulse Oximetry - Reevaluation(s) Reevaluation #1: 05/26/22 01:36 EDT Patient likely had a reaction to ceftriaxone. Antibiotic was finished. Patient had redness of her skin. There was no airway problems. No throat swelling. No angioedema. No wheezing. Patient did have a few episodes of vomiting. When ahead and treated with diphenhydramine, famotidine, and salmeterol. 05/26/22 01:58 EDT Note that the patient informed me after the reaction that she has reacted like this with ceftriaxone previously. This was not on the patient's ALLERGY list, nor were we informed of this reaction. Medication will be admitted to the ALLERGY list at this time. (Heath Mata) Reevaluation #2: 05/26/22 01:28 EST Patient noted to be tachycardic. However the patient is always tachycardic. Patient has no respiratory distress. Patient's SpO2 on room air is 98%. (Heath Mata) Reevaluation #3: 05/26/22 02:25 Awaiting d-dimer. I reviewed several of the patient's urine cultures. This should be susceptible to Bactrim DS. (Heath Mata) Medical Decision Making - Lab Data Result diagrams: 05/26/22 01:20 EST 05/26/22 01:20 EST <Heath Mata - Last Filed: 05/26/22 03:51> - Lab Data Result diagrams: 05/26/22 01:20 EST 05/26/22 01:20 EST <Papito Nevarez - Last Filed: 05/26/22 04:49> - Medical Decision Making Patient presents with tachycardia and currently being treated for urinary tract infection. Patient has a history of tachycardia has been taking Sudafed for the past 2 days. Certainly this could be affecting the patient's heart rate. She does not appear to be ill or toxic otherwise. Patient has clear nasal discharge with some nasal congestion. No sinus tenderness. No evidence of purulent discharge. Oropharynx is clear. Patient will be endorsed to the ED attending physician at 4 AM for further evaluation and disposition. (Heath Mata) - Lab Data Lab Results 05/26/22 05/26/22 05/26/22 Range/Units 00:26 00:26 00:26 WBC (3.8-10.6) k/uL RBC (3.80-5.40) m/uL Hgb (11.4-16.0) gm/dL Hct (34.0-46.0) % MCV (80.0-100.0) fL MCH (25.0-35.0) pg MCHC (31.0-37.0) g/dL RDW (11.5-15.5) % Plt Count (150-450) k/uL MPV Neutrophils % % Lymphocytes % % Monocytes % % Eosinophils % % Basophils % % Neutrophils # (1.3-7.7) k/uL Lymphocytes # (1.0-4.8) k/uL Monocytes # (0-1.0) k/uL Eosinophils # (0-0.7) k/uL Basophils # (0-0.2) k/uL D-Dimer (<0.60) mg/L FEU Sodium (137-145) mmol/L Potassium (3.5-5.1) mmol/L Chloride (98-107) mmol/L Carbon Dioxide (22-30) mmol/L Anion Gap mmol/L BUN (7-17) mg/dL Creatinine (0.52-1.04) mg/dL Est GFR (CKD-EPI)AfAm (>60 ml/min/1.73 sqM) Est GFR (CKD-EPI)NonAf (>60 ml/min/1.73 sqM) Glucose (74-99) mg/dL Plasma Lactic Acid Mauro (0.7-2.0) mmol/L Calcium (8.4-10.2) mg/dL Total Bilirubin (0.2-1.3) mg/dL AST (14-36) U/L ALT (4-34) U/L Alkaline Phosphatase (38-126) U/L Total Protein (6.3-8.2) g/dL Albumin (3.5-5.0) g/dL Lipase (23-300) U/L Urine Color Light Yellow Urine Appearance Cloudy H (Clear) Urine pH 6.5 (5.0-8.0) Ur Specific [place] 1.014 (1.001-1.035) Urine Protein Negative (Negative) Urine Glucose (UA) Negative (Negative) Urine Ketones Negative (Negative) Urine Blood Negative (Negative) Urine Nitrite Negative (Negative) Urine Bilirubin Negative (Negative) Urine Urobilinogen <2.0 (<2.0) mg/dL Ur Leukocyte Esterase Small H (Negative) Urine RBC 3 (0-5) /hpf Urine WBC 43 H (0-5) /hpf Ur Squamous Epith Cells <1 (0-4) /hpf Urine Bacteria Rare H (None) /hpf Urine HCG, Qual Not Detected (Not Detectd) Influenza Type A (PCR) Not Detected (Not Detectd) Influenza Type B (PCR) Not Detected (Not Detectd) RSV (PCR) Not Detected (Not Detectd) SARS-CoV-2 (PCR) Detected A (Not Detectd) 05/26/22 05/26/22 05/26/22 Range/Units 01:20 EST 01:20 EST 01:20 EST WBC 8.3 (3.8-10.6) k/uL RBC 4.44 (3.80-5.40) m/uL Hgb 13.3 (11.4-16.0) gm/dL Hct 39.2 (34.0-46.0) % MCV 88.4 (80.0-100.0) fL MCH 30.0 (25.0-35.0) pg MCHC 33.9 (31.0-37.0) g/dL RDW 13.0 (11.5-15.5) % Plt Count 276 (150-450) k/uL MPV 7.2 Neutrophils % 79 % Lymphocytes % 15 % Monocytes % 5 % Eosinophils % 1 % Basophils % 0 % Neutrophils # 6.5 (1.3-7.7) k/uL Lymphocytes # 1.2 (1.0-4.8) k/uL Monocytes # 0.4 (0-1.0) k/uL Eosinophils # 0.1 (0-0.7) k/uL Basophils # 0.0 (0-0.2) k/uL D-Dimer (<0.60) mg/L FEU Sodium 137 (137-145) mmol/L Potassium 4.0 (3.5-5.1) mmol/L Chloride 107 (98-107) mmol/L Carbon Dioxide 19 L (22-30) mmol/L Anion Gap 11 mmol/L BUN 12 (7-17) mg/dL Creatinine 0.77 (0.52-1.04) mg/dL Est GFR (CKD-EPI)AfAm >90 (>60 ml/min/1.73 sqM) Est GFR (CKD-EPI)NonAf >90 (>60 ml/min/1.73 sqM) Glucose 97 (74-99) mg/dL Plasma Lactic Acid Mauro 1.0 (0.7-2.0) mmol/L Calcium 9.1 (8.4-10.2) mg/dL Total Bilirubin 0.3 (0.2-1.3) mg/dL AST 21 (14-36) U/L ALT 17 (4-34) U/L Alkaline Phosphatase 65 (38-126) U/L Total Protein 6.8 (6.3-8.2) g/dL Albumin 4.0 (3.5-5.0) g/dL Lipase 135 (23-300) U/L Urine Color Urine Appearance (Clear) Urine pH (5.0-8.0) Ur Specific [place] (1.001-1.035) Urine Protein (Negative) Urine Glucose (UA) (Negative) Urine Ketones (Negative) Urine Blood (Negative) Urine Nitrite (Negative) Urine Bilirubin (Negative) Urine Urobilinogen (<2.0) mg/dL Ur Leukocyte Esterase (Negative) Urine RBC (0-5) /hpf Urine WBC (0-5) /hpf Ur Squamous Epith Cells (0-4) /hpf Urine Bacteria (None) /hpf Urine HCG, Qual (Not Detectd) Influenza Type A (PCR) (Not Detectd) Influenza Type B (PCR) (Not Detectd) RSV (PCR) (Not Detectd) SARS-CoV-2 (PCR) (Not Detectd) 05/26/22 Range/Units 03:04 WBC (3.8-10.6) k/uL RBC (3.80-5.40) m/uL Hgb (11.4-16.0) gm/dL Hct (34.0-46.0) % MCV (80.0-100.0) fL MCH (25.0-35.0) pg MCHC (31.0-37.0) g/dL RDW (11.5-15.5) % Plt Count (150-450) k/uL MPV Neutrophils % % Lymphocytes % % Monocytes % % Eosinophils % % Basophils % % Neutrophils # (1.3-7.7) k/uL Lymphocytes # (1.0-4.8) k/uL Monocytes # (0-1.0) k/uL Eosinophils # (0-0.7) k/uL Basophils # (0-0.2) k/uL D-Dimer 3.11 H (<0.60) mg/L FEU Sodium (137-145) mmol/L Potassium (3.5-5.1) mmol/L Chloride (98-107) mmol/L Carbon Dioxide (22-30) mmol/L Anion Gap mmol/L BUN (7-17) mg/dL Creatinine (0.52-1.04) mg/dL Est GFR (CKD-EPI)AfAm (>60 ml/min/1.73 sqM) Est GFR (CKD-EPI)NonAf (>60 ml/min/1.73 sqM) Glucose (74-99) mg/dL Plasma Lactic Acid Mauro (0.7-2.0) mmol/L Calcium (8.4-10.2) mg/dL Total Bilirubin (0.2-1.3) mg/dL AST (14-36) U/L ALT (4-34) U/L Alkaline Phosphatase (38-126) U/L Total Protein (6.3-8.2) g/dL Albumin (3.5-5.0) g/dL Lipase (23-300) U/L Urine Color Urine Appearance (Clear) Urine pH (5.0-8.0) Ur Specific [place] (1.001-1.035) Urine Protein (Negative) Urine Glucose (UA) (Negative) Urine Ketones (Negative) Urine Blood (Negative) Urine Nitrite (Negative) Urine Bilirubin (Negative) Urine Urobilinogen (<2.0) mg/dL Ur Leukocyte Esterase (Negative) Urine RBC (0-5) /hpf Urine WBC (0-5) /hpf Ur Squamous Epith Cells (0-4) /hpf Urine Bacteria (None) /hpf Urine HCG, Qual (Not Detectd) Influenza Type A (PCR) (Not Detectd) Influenza Type B (PCR) (Not Detectd) RSV (PCR) (Not Detectd) SARS-CoV-2 (PCR) (Not Detectd) Disposition Is patient prescribed a controlled substance at d/c from ED?: No <Heath Mata - Last Filed: 05/26/22 03:51> Is patient prescribed a controlled substance at d/c from ED?: No Time of Disposition: 04:45 <Papito Nevarez - Last Filed: 05/26/22 04:49> Clinical Impression: COVID-19, Urinary tract infection, Sinus tachycardia Narrative: Chronic sinus tachycardia (Heath Mata) Disposition: HOME SELF-CARE Condition: Good Instructions (If sedation given, give patient instructions): Urinary Tract Infection in Women (ED), Tachycardia (ED), COVID-19 (Coronavirus Disease 2019) (ED) Additional Instructions: SELF QUARANTINE DISCHARGE: As you are at risk for symptoms due to coronavirus, please stay home and stay away from others as much as possible. Please maintain social distance of 6 feet if possible. You should not return to work until at least 3 days (72 hours) have passed since recovery of symptoms. This defined as resolution of fever without the use of fever reducing medicines and improvement in respiratory symptoms (e.g,, cough, shortness of breath) Isolation can end at least 5 days after symptom onset and after fever ends for 24 hours (without the use of fever-reducing medication) and symptoms are improving, if these people can continue to properly wear a well-fitted mask around others for 5 more days after the 5-day isolation period. If you're still having symptoms at the end of 5 day period, isolate for an additional 5 days. More information about what to do if you are sick can be found on the CDC website at https://www.cdc.gov/co ronavirus/2019-ncov/xv-eqx-fci-sick/epixo-dbae-etng.html Expect the symptoms to last for 7-14 days from onset. Use acetaminophen (Tylenol) as needed for discomfort. You can take a maximum of 1 gram every 6 hours for discomfort, with your total dose in 24 hours not exceeding 4 grams. Be sure to maintain hydration. Drink continuous water and/or items high in vitamin C, such as orange juice and/or lemonade. For a cough you may take Mucinex or Robitussin. Also consider the use of Vicks Vapor Rub or your chest when you sleep. Use a humidifier that is cleaned frequently, in the bedroom at night. For Nausea /Vomiting/Diarrhea associated with your Illness: o Small frequent sips of room temperature liquids. o Diet: [employer] - If you are still experiencing discomfort and/or nausea please slowly advancing your diet using the BRAT Diet = bananas, rice, apples/apple sauce, toast. o With diarrhea avoid any dairy for 48 hours after symptoms resolved. o Continue with activity as tolerated. If your symptoms do get worse and you believe that the upper respiratory infection has developed into something else, such as pneumonia or severe dehydration, please return to the emergency department or follow-up with your primary care. But expect to be symptomatic for the days as indicated above Take the antibiotics as directed. Refrain from any medication which would increase her heart rate. Do not take Sudafed. No stimulants. Limit caffeine. Prescriptions: Sulfamethox-Tmp 800-160Mg [Bactrim DS 800-160 mg] 1 tab PO Q12HR 7 Days #14 tab Referrals: Erasmo Edward DO [Primary Care Provider] - 1-2 days
--- NOTE | 2022-05-26 00:15 | XR ---
EXAMINATION TYPE: XR chest 1V portable DATE OF EXAM: 05/25/2022 COMPARISON: 05/31/2021 HISTORY: Vomiting TECHNIQUE: FINDINGS: There is poor inspiration. There is coarsening of the pulmonary interstitial markings. No d efinite pleural effusion. No heart failure. There are no hilar masses. Heart size is normal. There is right-sided ventricular peritoneal shunt catheter. IMPRESSION: Increased lung markings compared to old exam. No pulmonary consolidation or heart failure .
[2022-05-26 00:50] LABS: Appearance,Urine Cloudy (Clear); Bacteria,Urine Rare /hpf; Bilirubin,Urine Negative (Negative); Blood,Urine Negative (Negative); Color,Urine Light Yellow; Glucose,Urine (UA) Negative (Negative); Ketones,Urine Negative (Negative); Leukocyte Esterase,Urine Small (Negative); Nitrite,Urine Negative (Negative); PH, Urine 6.5 (5.0-8.0); Protein,Urine Negative (Negative); RBC,Urine 3 /hpf (0-5); Specific Gravity,Urine 1.014 (1.001-1.035); Squamous Epithelial Cell,Urine <1 /hpf (0-4); Urobilinogen,Urine <2.0 mg/dL (<2.0); WBC,Urine 43 /hpf (0-5)
[2022-05-26 01:01] LABS: ALT 17 U/L (4-34); AST 21 U/L (14-36); African American GFR (CKD) >90 (>60 ml/min/1.73 sqM); Alkaline Phosphatase 65 U/L (38-126); Anion Gap 11 mmol/L; Blood Urea Nitrogen 12 mg/dL (7-17); Calcium 9.1 mg/dL (8.4-10.2); Carbon Dioxide 19 mmol/L (22-30); Chloride 107 mmol/L (98-107); Glucose 97 mg/dL (74-99); Lipase 135 U/L (23-300); Non-African American GFR(CKD) >90 (>60 ml/min/1.73 sqM); Sodium 137 mmol/L (137-145); Total Bilirubin 0.3 mg/dL (0.2-1.3); Total Protein 6.8 g/dL (6.3-8.2)
[2022-05-26 01:12] VITALS: RESP 16
[2022-05-26] MEDS ORDERED: FAMOTIDINE 20 MG/2 ML VIAL IV STA (01:35)
[2022-05-26] MEDS ORDERED: ONDANSETRON 4 MG/2 ML VIAL IVP STA (01:35)
[2022-05-26] MEDS ORDERED: methylPREDNISolone SOD SUCCI 125 MG/2 ML VIAL IV STA (01:35)
[2022-05-26] MEDS ORDERED: diphenhydrAMINE 50 MG/ML 1 ML VIAL IVP STA (01:35)
[2022-05-26 01:45] LABS: Basophils % (A) 0 %; Eosinophils # (A) 0.1 k/uL (0-0.7); Eosinophils % (A) 1 %; HCT 39.2 % (34.0-46.0); HGB 13.3 gm/dL (11.4-16.0); Lymphocytes # (A) 1.2 k/uL (1.0-4.8); Lymphocytes % (A) 15 %; MCHC 33.9 g/dL (31.0-37.0); MCV 88.4 fL (80.0-100.0); Mean Platelet Volume 7.2; Monocytes # (A) 0.4 k/uL (0-1.0); Monocytes % (A) 5 %; Neutrophils # (A) 6.5 k/uL (1.3-7.7); Neutrophils % (A) 79 %; Platelet Count 276 k/uL (150-450); RBC 4.44 m/uL (3.80-5.40); WBC 8.3 k/uL (3.8-10.6)
[2022-05-26] MEDS ORDERED: SODIUM CHLORIDE 0.9% 1,000 ML IV ONE (01:58)
--- NOTE | 2022-05-26 04:39 | CT ---
EXAMINATION TYPE: CT chest angio for PE DATE OF EXAM: 05/26/2022 COMPARISON: 10/30/2020 HISTORY: elevated d-dimer CT DLP: 351.7 mGycm Automated exposure control for dose reduction was used. CONTRAST: Performed with IV Contrast, patient injected with 70 mL of Isovue 370. Images obtained from the thoracic inlet to the diaphragm with the IV contrast. Three-D postprocessed images. There are some patchy interstitial infiltrates in both lungs. No pulmonary mass. Heart size is normal . No hilar mass. No mediastinal adenopathy. The thoracic aorta is intact. No aneurysm or dissection. No pleural effusion. There is a mild thoracic dextroscoliosis. There is thoracolumbar levoscoliosis. The left kidney is sm all with cortical thinning and hydronephrosis. No evidence of filling defect in the pulmonary arteries. IMPRESSION: No evidence of pulmonary embolism. Interstitial mild pulmonary infiltrates. No suspicious pulmonary m ass. Pulmonary infiltrates significantly improved compared to the old exam. Left renal atrophy and hydronephrosis. This is also present on old CT scan of 11/11/2020.
[2022-05-26 04:55] VITALS: BP 110/72; PULSE 119; TEMP 98.2
== END 2022-05-26 04:59 | disposition home or self-care (01) ==
LOC: EC 22:43
DX: U07.1 COVID-19 (principal); J06.9 Acute upper respiratory infection, unspecified; R00.0 Tachycardia, unspecified; Z91.040 Latex allergy status; Z88.1 Allergy status to other antibiotic agents
CPT/HCPCS: 99284; 96374; 96375 ×4; 96361; 36415; 85379; 80053; 83605; 83690; 85025; 81001; 81025; 87040; 87086; 87636; 71045; 71275; J1200; J2930; J2405; J0696; Q9967

== ENCOUNTER → 2023-03-04 | Outpatient (CLI) | payer OTHER ==
--- NOTE | 2023-03-04 14:17 | US ---
EXAMINATION TYPE: US kidneys/renal and bladder DATE OF EXAM: 03/04/2023 COMPARISON: CT abdomen and pelvis 11/11/2020 amount bladder ultrasound 11/11/2020 CLINICAL INDICATION: Female, 32 years old with history of N31.9 NEUROMUSCULAR DYSFUNCTION OF BLADDER, UNSPEC; neurogenic bladder EXAM MEASUREMENTS: Right Kidney: 9.7 x 6.3 x 5.6 cm Left Kidney: 7.3 x 3.4 x 3.9 cm Right Kidney: limited evaluation due to overlying bowel gas Left Kidney: hydronephrosis. atrophic Bladder: wnl as visualized. large fluid collection noted (pelvic mass) as on prior exams Bilateral Jets seen: no Limited evaluation of the right kidney due to overlying bowel gas. No definitive right renal hydronep hrosis or nephrolithiasis. The left kidney is atrophic with hydronephrosis demonstrated. Urinary blad shaq is within normal limits. Large fluid collection noted in the pelvis again. IMPRESSION: 1. Mild left hydronephrosis with left renal atrophy. 2. Redemonstration of large cystic fluid collection within the pelvis from prior CT on 11/11/2020. Ma y represent an ovarian cyst.
== END | disposition home or self-care (01) ==
LOC: RADUSWWP 12:48
PROVIDERS: ATTEND Urology
DX: N31.9 Neuromuscular dysfunction of bladder, unspecified (principal); N13.30 Unspecified hydronephrosis; N26.1 Atrophy of kidney (terminal); N28.1 Cyst of kidney, acquired
CPT/HCPCS: 76770

== ENCOUNTER 2023-06-09 21:47 | Emergency (ER) | payer OTHER ==
[2023-06-09 22:12] VITALS: RESP 18; TEMP 98
[2023-06-09] MEDS ORDERED: LIDOCAINE 1% INJ 10MG/ML (20 ML MDV) SQ ONE (22:17)
--- NOTE | 2023-06-09 22:27 | ED ---
Skin/Abscess/FB HPI - General Chief complaint: Skin/Abscess/Foreign Body Stated complaint: Abcess on Left Ankle Injury Time Seen by Provider: 06/09/23 22:08 Source: patient, RN notes reviewed Mode of arrival: ambulatory Limitations: no limitations - History of Present Illness Initial comments: This is a 32-year-old female who presents to the emergency department for an abscess to the left ankle. States she has had a wound here for about 7 years, however today developed what appears to be a pus pocket and she believes that it needs to be drained. She does go to the wound clinic each week, but has been having problems lately and has not been able to get the silvercel dressing or supplies to keep it wrapped. She does not have sensation to this foot, and is thus not experiencing any pain. Denies any fevers or chills. This did happen once several years ago and it was drained and treated with Bactrim. She has not been on any antibiotics in a long period of time. MD complaint: abscess/boil - Related Data Previous Rx's Medication Instructions Recorded Metoprolol Tartrate [Lopressor] 25 mg PO BID@0600,1800 30 Days #60 09/06/22 tab Sulfamethox-Tmp 800-160Mg [Bactrim 1 each PO Q12HR 5 Days #10 tab 09/06/22 Ds] Sulfamethox-Tmp 800-160Mg [Bactrim 1 tab PO Q12HR 7 Days #14 tab 06/10/23 DS 800-160 mg] Allergies Allergy/AdvReac Type Severity Reaction Status Date / Time ceftriaxone [From Rocephin] AdvReac Nausea & Verified 09/06/22 20:02 Vomiting latex AdvReac Fever from Verified 09/06/22 20:02 cath Review of Systems ROS Statement: Those systems with pertinent positive or pertinent negative responses have been documented in the HPI. ROS Other: All systems not noted in ROS Statement are negative. 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 covid 11/08 History of Any Multi-Drug Resistant Organisms: MRSA Date of last positivie culture/infection: 12/05/18 MDRO Source:: Left Ankle Past Surgical History: Back Surgery, Bladder Surgery, Hernia Repair, Orthopedic Surgery Additional Past Surgical History / Comment(s): Multi orthopedic surgeries since childhood. 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 Past Anesthesia/Blood Transfusion Reactions: No Reported Reaction Past Psychological History: No Psychological Hx Reported Smoking Status: Never smoker Past Alcohol Use History: None Reported Past Drug Use History: None Reported - Past Family History Mother Family Medical History: Cancer Additional Family Medical History / Comment(s): grandparents - lung Father History Unknown: Yes General Exam Limitations: no limitations General appearance: alert, in no apparent distress Head exam: Present: atraumatic, normocephalic, normal inspection Respiratory exam: Present: normal lung sounds bilaterally. Absent: respiratory distress, wheezes, rales, rhonchi, stridor Cardiovascular Exam: Present: regular rate, normal rhythm, normal heart sounds. Absent: systolic murmur, diastolic murmur, rubs, gallop, clicks Extremities exam: Present: other (Ulceration to the medial aspect of the left ankle with surrounding erythema and swelling.) Neurological exam: Present: alert, oriented X3, CN II-XII intact Psychiatric exam: Present: normal affect, normal mood Course Vital Signs 06/09/23 06/10/23 21:51 00:32 Temperature 98.0 F Pulse Rate 109 H 89 Respiratory 18 18 Rate Blood Pressure 136/87 132/78 O2 Sat by Pulse 96 97 Oximetry Procedures - Incision & Drainage Consent Obtained: verbal consent Indication: Abscess Site: lower extremity Size (cm): 2 Sterile Field Used?: Yes Scalpel Used: #11 Ultrasound used: No Needle Aspiration Performed?: No Irrigation Performed?: No I&D Drainage Obtained: Blood Medical Decision Making - Medical Decision Making This is a 32-year-old female who presents to the emergency department for concerns of an abscess to the left ankle. Was pt. sent in by a medical professional or institution? @ -No Did you speak to anyone other than the patient for history? @ -No Did you review nursing and triage notes? @ -Yes, and I agree, it is accurate with regards to the patient's symptoms. Were old charts reviewed? @ -No Differential Diagnosis? @ -Differential Wound: Cellulitis, injury, ulceration, abscess, this is not meant to be an all- inclusive list. EKG interpreted by me (3pts min.)? @ -Not obtained X-rays interpreted by me (1pt min.)? @ -X-ray of the left ankle obtained. My interpretation identifies soft tissue swelling. CT interpreted by me (1pt min.)? @ -Not obtained U/S interpreted by me (1pt. min.)? @ -Not obtained What testing was considered but not performed? (CT, X-rays, U/S, labs)? Why? @ -None What meds were considered but not given? Why? @ -None Did you discuss the management of the patient with other professionals? @ -No Did you reconcile home meds? @ -No Was smoking cessation discussed for >3mins.? @ -No Was critical care preformed (if so, how long)? @ -No Were there social determinants of health that impacted care today? How? (Homelessness, low income, unemployed, alcoholism, drug addiction, transportation, low edu. Level, literacy, decrease access to med. care, custodial, rehab)? @ -No Was there de-escalation of care discussed even if they declined? (Discuss DNR or withdrawal of care, Hospice)? @ -No What co-morbidities impacted this encounter? (DM, HTN, Smoking, COPD, CAD, Cancer, CVA, Hep., AIDS, mental health diagnosis, sleep apnea, morbid obesity)? @ -Spina bifida Was patient admitted / discharged? @ -Discharged. Lab work obtained revealing mild leukocytosis and no other actionable findings. Wound culture was obtained. X-ray of the left ankle obtained revealing soft tissue swelling without evidence of subcutaneous gas formation or osseous destruction. Incision and drainage was attempted, however we were only able to get blood. Her wound was bandaged accordingly and she was sent home with supplies due to her difficulty with obtaining these from the wound center. Prescription for Bactrim provided with dosing instructions reviewed, initial dose was administered in the emergency department. She was otherwise discharged home in stable condition and will continue to follow up with the wound center. Undiagnosed new problem with uncertain prognosis? @ -None Drug Therapy requiring intensive monitoring for toxicity (Heparin, Nitro, In sulin, Cardizem)? @ -None Were any procedures done? @ -Incision and drainage Diagnosis/symptom? @ -Abscess of left ankle Acute, or Chronic, or Acute on Chronic? @ -Acute Uncomplicated (without systemic symptoms) or Complicated (systemic symptoms)? @ -Uncomplicated Side effects of treatment? @ -None Exacerbation, Progression, or Severe Exacerbation] @ -Not applicable Poses a threat to life or bodily function? @ -No Return precautions reviewed in depth, the patient is instructed to return to the emergency department with any new, worsening, or concerning symptoms. Patient verbalized understanding. This case was discussed in detail with the attending ED physician, Dr. Nevarez. Presentation, findings, and treatment plan discussed in detail as well. - Lab Data Result diagrams: 06/09/23:06/09/23 22: Lab Results 06/09/23 06/09/23 06/09/23 Range/Units 22: 22:: WBC 11.3 H (3.8-10.6) k/uL RBC 4.65 (3.80-5.40) m/uL Hgb 14.2 (11.4-16.0) gm/dL Hct 41.7 (34.0-46.0) % MCV 89.6 (80.0-100.0) fL MCH 30.5 (25.0-35.0) pg MCHC 34.0 (31.0-37.0) g/dL RDW 12.3 (11.5-15.5) % Plt Count 381 (150-450) k/uL MPV 6.9 Neutrophils % 58 % Lymphocytes % 36 % Monocytes % 4 % Eosinophils % 0 % Basophils % 0 % Neutrophils # 6.5 (1.3-7.7) k/uL Lymphocytes # 4.1 (1.0-4.8) k/uL Monocytes # 0.5 (0-1.0) k/uL Eosinophils # 0.0 (0-0.7) k/uL Basophils # 0.0 (0-0.2) k/uL ESR 46 H (0-20) mm/Hr Sodium 138 (137-145) mmol/L Potassium 4.0 (3.5-5.1) mmol/L Chloride 104 (98-107) mmol/L Carbon Dioxide 23 (22-30) mmol/L Anion Gap 11 mmol/L BUN 20 H (7-17) mg/dL Creatinine 0.60 (0.52-1.04) mg/dL Est GFR (CKD-EPI)AfAm >90 (>60 ml/min/1.73 sqM) Est GFR (CKD-EPI)NonAf >90 (>60 ml/min/1.73 sqM) Glucose 94 (74-99) mg/dL Plasma Lactic Acid Mauro 1.0 (0.7-2.0) mmol/L Calcium 10.0 (8.4-10.2) mg/dL Total Bilirubin 0.3 (0.2-1.3) mg/dL AST 22 (14-36) U/L ALT 20 (4-34) U/L Alkaline Phosphatase 66 (38-126) U/L C-Reactive Protein 0.8 (<1.0) mg/dL Total Protein 7.7 (6.3-8.2) g/dL Albumin 4.5 (3.5-5.0) g/dL - Radiology Data Radiology results: report reviewed, image reviewed Disposition Clinical Impression: Abscess of skin of left ankle Disposition: HOME SELF-CARE Instructions (If sedation given, give patient instructions): Abscess Incision and Drainage (ED), Abscess (ED) Additional Instructions: Return to the emergency department with any new, worsening, or concerning symp toms. Take the antibiotic as prescribed for 7 days. Follow up with the Wound Center. Prescriptions: Sulfamethox-Tmp 800-160Mg [Bactrim DS 800-160 mg] 1 tab PO Q12HR 7 Days #14 tab Is patient prescribed a controlled substance at d/c from ED?: No Referrals: Erasmo Edward DO [Primary Care Provider] - 1-2 days
[2023-06-09 22:46] LABS: Basophils % (A) 0 %; Eosinophils % (A) 0 %; HCT 41.7 % (34.0-46.0); HGB 14.2 gm/dL (11.4-16.0); Lymphocytes # (A) 4.1 k/uL (1.0-4.8); Lymphocytes % (A) 36 %; MCH 30.5 pg (25.0-35.0); MCV 89.6 fL (80.0-100.0); Mean Platelet Volume 6.9; Monocytes # (A) 0.5 k/uL (0-1.0); Monocytes % (A) 4 %; Neutrophils # (A) 6.5 k/uL (1.3-7.7); Neutrophils % (A) 58 %; Platelet Count 381 k/uL (150-450); RBC 4.65 m/uL (3.80-5.40); RDW 12.3 % (11.5-15.5); WBC 11.3 k/uL (3.8-10.6)
[2023-06-09] MEDS ORDERED: SULFAMETHOX-TMP 800-160MG 1 EACH TAB PO STA (22:55)
[2023-06-09 22:59] LABS: ALT 20 U/L (4-34); AST 22 U/L (14-36); African American GFR (CKD) >90 (>60 ml/min/1.73 sqM); Albumin 4.5 g/dL (3.5-5.0); Alkaline Phosphatase 66 U/L (38-126); Anion Gap 11 mmol/L; Blood Urea Nitrogen 20 mg/dL (7-17); C Reactive Protein 0.8 mg/dL (<1.0); Carbon Dioxide 23 mmol/L (22-30); Chloride 104 mmol/L (98-107); Glucose 94 mg/dL (74-99); Non-African American GFR(CKD) >90 (>60 ml/min/1.73 sqM); Sodium 138 mmol/L (137-145); Total Bilirubin 0.3 mg/dL (0.2-1.3); Total Protein 7.7 g/dL (6.3-8.2)
[2023-06-10] MEDS ORDERED: SULFAMETH-TMP DS STARTER PACK 2 TAB BTL PO STA (00:07)
--- NOTE | 2023-06-10 00:49 | XR ---
EXAM: XR Left Ankle Complete, 3 or More Views CLINICAL HISTORY: ITS.REASON XR Reason: Ankle infection TECHNIQUE: Frontal, lateral and oblique views of the left ankle. COMPARISON: No relevant prior studies available. FINDINGS: Bones/joints: Unremarkable. No acute fracture or dislocation. Soft tissues: Severe medial soft tissue swelling. Other findings: Pes planus. IMPRESSION: 1. No acute fracture or dislocation. 2. Severe medial soft tissue swelling.
[2023-06-10 01:00] VITALS: BP 132/78; PULSE 89
[2023-06-10 02:48] LABS: Erythrocyte Sedimentation Rate 46 mm/Hr (0-20)
== END 2023-06-10 00:33 | disposition home or self-care (01) ==
LOC: EC 21:47
DX: L02.416 Cutaneous abscess of left lower limb (principal); Z91.040 Latex allergy status; Z88.8 Allergy status to other drugs, medicaments and biological substances
CPT/HCPCS: 36415; 80053; 85652; 83605; 85025; 86140; 87070; 87205; 73610; 10060; 99283; J2001

== ENCOUNTER 2023-12-05 19:17 | Emergency (ER) | payer OTHER ==
--- NOTE | 2023-12-05 20:17 | ED ---
General Adult HPI - General Chief complaint: Nausea/Vomiting/Diarrhea Stated complaint: Abd pain, numbness Time Seen by Provider: 12/05/23 20:09 Source: patient, RN notes reviewed Mode of arrival: wheelchair Limitations: physical limitation - History of Present Illness Initial comments: 33-year-old female with a past medical history significant for spina bifida and recurrent UTIs presenting to the ED with complaints of nausea and vomiting. Patient states over the past few days has had intermittent nonbloody diarrhea. Today onset of nausea and nonbloody emesis. Also states that she feels like there is a "numbness" in her upper abdomen. Otherwise denies abdominal pain. Per patient mother, states that these are her typical symptoms of urinary tract infections. Follows with Dr. Hammer of urology. - Related Data Previous Rx's Medication Instructions Recorded Metoprolol Tartrate [Lopressor] 25 mg PO BID@0600,1800 30 Days #60 09/06/22 tab Sulfamethox-Tmp 800-160Mg [Bactrim 1 each PO Q12HR 5 Days #10 tab 09/06/22 Ds] Sulfamethox-Tmp 800-160Mg [Bactrim 1 tab PO Q12HR 7 Days #14 tab 06/10/23 DS 800-160 mg] Ondansetron Odt [Zofran Odt] 4 mg PO Q8HR PRN #10 tab 12/05/23 Sulfamethox-Tmp 800-160Mg [Bactrim 1 each PO Q12HR #20 tab 12/05/23 Ds] Allergies Allergy/AdvReac Type Severity Reaction Status Date / Time ceftriaxone [From Rocephin] AdvReac Nausea & Verified 12/05/23 20:08 Vomiting latex AdvReac Fever from Verified 12/05/23 20:08 cath Review of Systems ROS Statement: Those systems with pertinent positive or pertinent negative responses have been documented in the HPI. ROS Other: All systems not noted in ROS Statement are negative. 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 covid 11/08 History of Any Multi-Drug Resistant Organisms: MRSA Date of last positivie culture/infection: 12/05/18 MDRO Source:: Left Ankle Past Surgical History: Back Surgery, Bladder Surgery, Hernia Repair, Orthopedic Surgery Additional Past Surgical History / Comment(s): Multi orthopedic surgeries since childhood. 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 Past Anesthesia/Blood Transfusion Reactions: No Reported Reaction Past Psychological History: No Psychological Hx Reported Smoking Status: Never smoker Past Alcohol Use History: None Reported Past Drug Use History: None Reported - Past Family History Mother Family Medical History: Cancer Additional Family Medical History / Comment(s): grandparents - lung Father History Unknown: Yes General Exam - General Exam Comments Initial Comments: Visual Physical Exam Vital signs reviewed General: Well-appearing, nontoxic, no acute distress. Head: Normocephalic, atraumatic Eyes: PERRLA, EOMI ENT: Airway patent Chest: Nonlabored breathing Skin: No visual rash, normal skin tone Neuro: Alert and oriented 3 Musculoskeletal: No gross abnormalities Limitations: physical limitation General appearance: alert, in no apparent distress Eye exam: Present: normal appearance Neck exam: Present: normal inspection Respiratory exam: Present: normal lung sounds bilaterally Cardiovascular Exam: Present: regular rate, normal rhythm GI/Abdominal exam: Present: soft, normal bowel sounds, other (No CVA tenderness to percussion bilaterally.). Absent: distended, tenderness, guarding, rebound, rigid Neurological exam: Present: alert, oriented X3 Skin exam: Present: warm, dry Course Vital Signs 12/05/23 12/05/23 20:08 22:45 Temperature 99.0 F 98.8 F Pulse Rate 105 H Respiratory 16 Rate Blood Pressure 137/92 O2 Sat by Pulse 96 Oximetry Medical Decision Making - Medical Decision Making Quicknote portion performed. Signed Rodolfo Merino PA-C Was pt. sent in by a medical professional or institution (ANDREZ Thomas, ELECTRIC METER REPAIRER, urgent care, hospital, or assisted...) When possible be specific @ -No Did you speak to anyone other than the patient for history (EMS, parent, family, police, friend...)? What history was obtained from this source @ -No Did you review nursing and triage notes (agree or disagree)? Why? @ -I reviewed and agree with nursing and triage notes Were old charts reviewed (outside hosp., previous admission, EMS record, old EKG, old radiological studies, urgent care reports/EKG's, assisted records)? Report findings @ -No old charts were reviewed Differential Diagnosis (chest pain, altered mental status, abdominal pain women, abdominal pain men, vaginal bleeding, weakness, fever, dyspnea, syncope, headache, dizziness, GI bleed, back pain, seizure, CVA, palpatations, mental health, musculoskeletal)? @ -Differential Abdominal Pain Women: Appendicitis, Cholecystitis, diverticulosis, ischemic bowel, pancreatitis, hepatitis, UTI, gastroenteritis, AAA, incarcerated hernia, bowel obstruction, constipation, inflammatory bowel, hepatitis, peptic ulcer disease, splenic infarction, perforated viscus, vulvitis, ovarian torsion, PID, kidney stone, placenta abruption, this is not meant to be an all-inclusive list EKG interpreted by me (3pts min.). @ -EKG inter by me showing a sinus rhythm at [address] or T wave changes. UT 140, QRS 82, QT/QTc 341/385. X-rays interpreted by me (1pt min.). @ -None CT interpreted by me (1pt min.). @ -None done U/S interpreted by me (1pt. min.). @ -None done What testing was considered but not performed or refused? (CT, X-rays, U/S, labs)? Why? @ -None What meds were considered but not given or refused? Why? @ -None Did you discuss the management of the patient with other professionals (professionals i.e. , PA, ELECTRIC METER REPAIRER, lab, RT, psych nurse, social media marketing specialist, furniture designer, teacher, corporate trust officer, manager of case)? Give summary @ -No Was smoking cessation discussed for >3mins.? @ -No Was critical care preformed (if so, how long)? @ -No Were there social determinants of health that impacted care today? How? (Homelessness, low income, unemployed, alcoholism, drug addiction, transportation, low edu. Level, literacy, decrease access to med. care, senior living, rehab)? @ -No Was there de-escalation of care discussed even if they declined (Discuss DNR or withdrawal of care, Hospice)? DNR status @ -No What co-morbidities impacted this encounter? (DM, HTN, Smoking, COPD, CAD, Cancer, CVA, ARF, Chemo, Hep., AIDS, mental health diagnosis, sleep apnea, morbid obesity)? @ -None Was patient admitted / discharged? Hospital course, mention meds given and route, prescriptions, significant lab abnormalities, going to OR and other pertinent info. @ -Discharge 33-year-old female presenting to the ED with complaints of nausea vomiting, and a epigastric "numbness". Patient reports history of chronic UTIs and follows with Dr. Hammer. States that these are symptoms typical of her urinary tract infections. Laboratory studies reviewed. CBC shows a white blood cell count at 12.8, chemistry panel unremarkable, urine does appear consistent with infection with moderate leukocyte esterase, 67 white blood cells, rare white blood cell clumps. Urine culture was obtained. At this time patient is not reporting any flank pain. Vital signs stable afebrile. Discharged home with prescription for Bactrim and Zofran. Advise close follow-up with her PCP and urologist. Discussed tricked return precautions with patient mother who verbalized agreement. Undiagnosed new problem with uncertain prognosis? @ -No Drug Therapy requiring intensive monitoring for toxicity (Heparin, Nitro, Insulin, Cardizem)? @ -No Were any procedures done? @ -No Diagnosis/symptom? @ -Urinary tract infection Acute, or Chronic, or Acute on Chronic? @ -Acute Uncomplicated (without systemic symptoms) or Complicated (systemic symptoms)? @ -Uncomplicated Side effects of treatment? @ -No Exacerbation, Progression, or Severe Exacerbation? @ -No Poses a threat to life or bodily function? How? (Chest pain, [place], NC, pneumonia, PE, COPD, DKA, ARF, appy, cholecystitis, CVA, Diverticulitis, Homicidal, Suicidal, threat to staff... and all critical care pts) @ -No - Lab Data Result diagrams: 12/05/23 22:24 12/05/23 22:24 Lab Results 12/05/23 12/05/23 12/05/23 Range/Units 22:24 22:24 22:24 WBC 12.8 H (3.8-10.6) k/uL RBC 4.79 (3.80-5.40) m/uL Hgb 13.9 (11.4-16.0) gm/dL Hct 42.0 (34.0-46.0) % MCV 87.7 (80.0-100.0) fL MCH 29.0 (25.0-35.0) pg MCHC 33.0 (31.0-37.0) g/dL RDW 13.5 (11.5-15.5) % Plt Count 439 (150-450) k/uL MPV 7.5 Neutrophils % 66 % Lymphocytes % 26 % Monocytes % 6 % Eosinophils % 1 % Basophils % 0 % Neutrophils # 8.5 H (1.3-7.7) k/uL Lymphocytes # 3.3 (1.0-4.8) k/uL Monocytes # 0.7 (0-1.0) k/uL Eosinophils # 0.1 (0-0.7) k/uL Basophils # 0.1 (0-0.2) k/uL Sodium (137-145) mmol/L Potassium (3.5-5.1) mmol/L Chloride (98-107) mmol/L Carbon Dioxide (22-30) mmol/L Anion Gap mmol/L BUN (7-17) mg/dL Creatinine (0.52-1.04) mg/dL Est GFR (CKD-EPI)AfAm (>60 ml/min/1.73 sqM) Est GFR (CKD-EPI)NonAf (>60 ml/min/1.73 sqM) Glucose (74-99) mg/dL Calcium (8.4-10.2) mg/dL Total Bilirubin (0.2-1.3) mg/dL AST (14-36) U/L ALT (4-34) U/L Alkaline Phosphatase (38-126) U/L Total Protein (6.3-8.2) g/dL Albumin (3.5-5.0) g/dL Amylase (30-110) U/L Lipase (23-300) U/L Urine Color Colorless Urine Appearance Cloudy H (Clear) Urine pH 6.5 (5.0-8.0) Ur Specific [place] 1.019 (1.001-1.035) Urine Protein Negative (Negative) Urine Glucose (UA) Negative (Negative) Urine Ketones Negative (Negative) Urine Blood Negative (Negative) Urine Nitrite Negative (Negative) Urine Bilirubin Negative (Negative) Urine Urobilinogen <2.0 (<2.0) mg/dL Ur Leukocyte Esterase Moderate H (Negative) Urine RBC 4 (0-5) /hpf Urine WBC 67 H (0-5) /hpf Urine WBC Clumps Rare H (None) /hpf Ur Squamous Epith Cells 1 (0-4) /hpf Urine Mucus Rare H (None) /hpf Urine HCG, Qual Not Detected (Not Detectd) Influenza Type A (PCR) (Not Detectd) Influenza Type B (PCR) (Not Detectd) RSV (PCR) (Not Detectd) SARS-CoV-2 (PCR) (Not Detectd) 12/05/23 12/05/23 Range/Units 22:24 22:24 WBC (3.8-10.6) k/uL RBC (3.80-5.40) m/uL Hgb (11.4-16.0) gm/dL Hct (34.0-46.0) % MCV (80.0-100.0) fL MCH (25.0-35.0) pg MCHC (31.0-37.0) g/dL RDW (11.5-15.5) % Plt Count (150-450) k/uL MPV Neutrophils % % Lymphocytes % % Monocytes % % Eosinophils % % Basophils % % Neutrophils # (1.3-7.7) k/uL Lymphocytes # (1.0-4.8) k/uL Monocytes # (0-1.0) k/uL Eosinophils # (0-0.7) k/uL Basophils # (0-0.2) k/uL Sodium 140 (137-145) mmol/L Potassium 4.3 (3.5-5.1) mmol/L Chloride 107 (98-107) mmol/L Carbon Dioxide 23 (22-30) mmol/L Anion Gap 10 mmol/L BUN 20 H (7-17) mg/dL Creatinine 0.62 (0.52-1.04) mg/dL Est GFR (CKD-EPI)AfAm >90 (>60 ml/min/1.73 sqM) Est GFR (CKD-EPI)NonAf >90 (>60 ml/min/1.73 sqM) Glucose 96 (74-99) mg/dL Calcium 10.2 (8.4-10.2) mg/dL Total Bilirubin 0.3 (0.2-1.3) mg/dL AST 22 (14-36) U/L ALT 18 (4-34) U/L Alkaline Phosphatase 85 (38-126) U/L Total Protein 8.0 (6.3-8.2) g/dL Albumin 4.5 (3.5-5.0) g/dL Amylase 74 (30-110) U/L Lipase 180 (23-300) U/L Urine Color Urine Appearance (Clear) Urine pH (5.0-8.0) Ur Specific [place] (1.001-1.035) Urine Protein (Negative) Urine Glucose (UA) (Negative) Urine Ketones (Negative) Urine Blood (Negative) Urine Nitrite (Negative) Urine Bilirubin (Negative) Urine Urobilinogen (<2.0) mg/dL Ur Leukocyte Esterase (Negative) Urine RBC (0-5) /hpf Urine WBC (0-5) /hpf Urine WBC Clumps (None) /hpf Ur Squamous Epith Cells (0-4) /hpf Urine Mucus (None) /hpf Urine HCG, Qual (Not Detectd) Influenza Type A (PCR) Not Detected (Not Detectd) Influenza Type B (PCR) Not Detected (Not Detectd) RSV (PCR) Not Detected (Not Detectd) SARS-CoV-2 (PCR) Not Detected (Not Detectd) Disposition Clinical Impression: UTI (urinary tract infection) Disposition: HOME SELF-CARE Condition: Good Instructions (If sedation given, give patient instructions): Urinary Tract Infection in Women (ED) Additional Instructions: Please return to the Emergency Department if symptoms worsen or any other concerns. Please follow-up with your primary care provider and urologist. Prescriptions: Sulfamethox-Tmp 800-160Mg [Bactrim Ds] 1 each PO Q12HR #20 tab Ondansetron Odt [Zofran Odt] 4 mg PO Q8HR PRN #10 tab PRN Reason: Nausea Is patient prescribed a controlled substance at d/c from ED?: No Referrals: Erasmo Edward DO [Primary Care Provider] - 1-2 days Time of Disposition: 23:53
[2023-12-05 20:46] VITALS: RESP 16
[2023-12-05 22:54] LABS: Appearance,Urine Cloudy (Clear); Basophils # (A) 0.1 k/uL (0-0.2); Basophils % (A) 0 %; Bilirubin,Urine Negative (Negative); Blood,Urine Negative (Negative); Color,Urine Colorless; Eosinophils # (A) 0.1 k/uL (0-0.7); Eosinophils % (A) 1 %; Glucose,Urine (UA) Negative (Negative); HGB 13.9 gm/dL (11.4-16.0); Ketones,Urine Negative (Negative); Leukocyte Esterase,Urine Moderate (Negative); Lymphocytes # (A) 3.3 k/uL (1.0-4.8); Lymphocytes % (A) 26 %; MCV 87.7 fL (80.0-100.0); Mean Platelet Volume 7.5; Monocytes # (A) 0.7 k/uL (0-1.0); Monocytes % (A) 6 %; Mucus,Urine Rare /hpf; Neutrophils # (A) 8.5 k/uL (1.3-7.7); Neutrophils % (A) 66 %; Nitrite,Urine Negative (Negative); PH, Urine 6.5 (5.0-8.0); Platelet Count 439 k/uL (150-450); Protein,Urine Negative (Negative); RBC 4.79 m/uL (3.80-5.40); RBC,Urine 4 /hpf (0-5); RDW 13.5 % (11.5-15.5); Specific Gravity,Urine 1.019 (1.001-1.035); Squamous Epithelial Cell,Urine 1 /hpf (0-4); Urobilinogen,Urine <2.0 mg/dL (<2.0); WBC 12.8 k/uL (3.8-10.6); WBC,Urine 67 /hpf (0-5)
[2023-12-05 22:58] LABS: ALT 18 U/L (4-34); AST 22 U/L (14-36); African American GFR (CKD) >90 (>60 ml/min/1.73 sqM); Albumin 4.5 g/dL (3.5-5.0); Alkaline Phosphatase 85 U/L (38-126); Amylase 74 U/L (30-110); Anion Gap 10 mmol/L; Blood Urea Nitrogen 20 mg/dL (7-17); Calcium 10.2 mg/dL (8.4-10.2); Carbon Dioxide 23 mmol/L (22-30); Chloride 107 mmol/L (98-107); Glucose 96 mg/dL (74-99); Lipase 180 U/L (23-300); Non-African American GFR(CKD) >90 (>60 ml/min/1.73 sqM); Potassium 4.3 mmol/L (3.5-5.1); Sodium 140 mmol/L (137-145); Total Bilirubin 0.3 mg/dL (0.2-1.3)
[2023-12-05] MEDS: ONDANSETRON 4 MG/2 ML VIAL IVP STA (23:54)
[2023-12-05] MEDS: SODIUM CHLORIDE 0.9% 1,000 ML IV STA (23:54)
[2023-12-05] MEDS: SULFAMETH-TMP DS STARTER PACK 2 TAB BTL PO STA (23:58)
[2023-12-05] MEDS: ONDANSETRON 4 MG ODT STARTER PACK 2 TAB BTL PO STA (23:58)
[2023-12-06 00:08] VITALS: BP 135/89; PULSE 80; TEMP 98.6
== END 2023-12-06 00:03 | disposition home or self-care (01) ==
LOC: EC 19:17
DX: N39.0 Urinary tract infection, site not specified (principal); Z11.52 Encounter for screening for COVID-19; Z88.1 Allergy status to other antibiotic agents; Z91.040 Latex allergy status; Z86.16 Personal history of COVID-19
CPT/HCPCS: 36415; 93005; 80053; 82150; 83690; 85025; 81001; 81025; 87086; 87636; 99284; S0119

== ENCOUNTER 2023-12-22 10:12 | Emergency (ER) | payer OTHER ==
--- NOTE | 2023-12-22 10:28 | ED ---
Extremity Problem HPI - General Chief complaint: Extremity Problem,Nontraumatic Stated complaint: L Ankle Wound Time Seen by Provider: 12/22/23 10:28 Source: patient, RN notes reviewed Mode of arrival: wheelchair Limitations: no limitations - History of Present Illness Initial comments: This is a 33-year-old female presents emergency department chief complaint of a chronic left ankle wound. She states that she noticed the wound become more swollen and tender yesterday afternoon, states that she has a history of pus pockets developing within the wound and is concerned they may be returning. She denies fevers, nausea, vomiting, weakness or fatigue. Patient follows with Dr. Waters with her next appointment on of this week. Recent use of bactrim roughly 2 weeks ago. She denies parasthesias, leakage from wound. - Related Data Previous Rx's Medication Instructions Recorded Metoprolol Tartrate [Lopressor] 25 mg PO BID@0600,1800 30 Days #60 09/06/22 tab Sulfamethox-Tmp 800-160Mg [Bactrim 1 each PO Q12HR 5 Days #10 tab 09/06/22 Ds] Sulfamethox-Tmp 800-160Mg [Bactrim 1 tab PO Q12HR 7 Days #14 tab 06/10/23 DS 800-160 mg] Ondansetron Odt [Zofran Odt] 4 mg PO Q8HR PRN #10 tab 12/05/23 Sulfamethox-Tmp 800-160Mg [Bactrim 1 each PO Q12HR #20 tab 12/05/23 Ds] Doxycycline [Vibramycin] 100 mg PO BID #20 capsule 12/22/23 Allergies Allergy/AdvReac Type Severity Reaction Status Date / Time ceftriaxone [From Rocephin] AdvReac Nausea & Verified 12/22/23 10:22 Vomiting latex AdvReac Fever from Verified 12/22/23 10:22 cath Review of Systems ROS Statement: Those systems with pertinent positive or pertinent negative responses have been documented in the HPI. ROS Other: All systems not noted in ROS Statement are negative. 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 covid 4/21 History of Any Multi-Drug Resistant Organisms: MRSA Date of last positivie culture/infection: 12/05/18 MDRO Source:: Left Ankle Past Surgical History: Back Surgery, Bladder Surgery, Hernia Repair, Orthopedic Surgery Additional Past Surgical History / Comment(s): Multi orthopedic surgeries since childhood. FURNACE FEEDER shunt. Past Anesthesia/Blood Transfusion Reactions: No Reported Reaction Past Psychological History: No Psychological Hx Reported Smoking Status: Never smoker Past Alcohol Use History: None Reported Past Drug Use History: None Reported - Past Family History Mother Family Medical History: Cancer Additional Family Medical History / Comment(s): grandparents - lung Father History Unknown: Yes General Exam Limitations: no limitations, physical limitation (wheelchair bound) General appearance: alert, in no apparent distress Head exam: Present: atraumatic, normocephalic, normal inspection Eye exam: Present: normal appearance, PERRL, EOMI. Absent: scleral icterus, conjunctival injection, periorbital swelling ENT exam: Present: normal exam, mucous membranes moist Neck exam: Present: normal inspection. Absent: tenderness, meningismus, lymphadenopathy Respiratory exam: Present: normal lung sounds bilaterally. Absent: respiratory distress, wheezes, rales, rhonchi, stridor Cardiovascular Exam: Present: regular rate, normal rhythm, normal heart sounds. Absent: systolic murmur, diastolic murmur, rubs, gallop, clicks GI/Abdominal exam: Present: soft, normal bowel sounds. Absent: distended, tenderness, guarding, rebound, rigid Left Ankle exam: Present: swelling (medial malleolus edema, erythema, and callused skin), deformity Back exam: Present: normal inspection Neurological exam: Present: alert, oriented X3, CN II-XII intact Psychiatric exam: Present: normal affect, normal mood Skin exam: Present: warm, dry, intact, normal color, other (see above for description of left sided chronic ankle wound). Absent: rash Course Vital Signs 12/22/23 12/22/23 10:19 11:45 Temperature 98.2 F Pulse Rate 90 76 Respiratory 18 18 Rate Blood Pressure 131/82 147/76 O2 Sat by Pulse 97 97 Oximetry Procedures - Incision & Drainage Consent Obtained: verbal consent Indication: Wound of the left medial ankle Site: lower extremity Size (cm): 3 Anesthetic Used: lidocaine 1%, without epi Amount (mLs): 3 I&D Cleaning Method: Alcohol Wipe Sterile Field Used?: Yes Scalpel Used: #11 I&D Drainage Obtained: Blood Culture Obtained?: No Patient Tolerated Procedure: well, no complications Medical Decision Making - Medical Decision Making Was pt. sent in by a medical professional or institution (, PA, OIL BURNER, urgent care, hospital, or jail...) When possible be specific @ -No Did you speak to anyone other than the patient for history (EMS, parent, family, police, friend...)? What history was obtained from this source @ -No Did you review nursing and triage notes (agree or disagree)? Why? @ -I reviewed and agree with nursing and triage notes Were old charts reviewed (outside hosp., previous admission, EMS record, old EKG, old radiological studies, urgent care reports/EKG's, jail records)? Report findings @ -I reviewed the chart from May 2023 where patient presented for the chronic abscess of her left ankle, history was obtained revealed soft tissue swelling. Labs reveal mild leukocytosis. Incision and drainage attempted, unsuccessful and she was discharged home with a prescription for Bactrim. Differential Diagnosis (chest pain, altered mental status, abdominal pain women, abdominal pain men, vaginal bleeding, weakness, fever, dyspnea, syncope, headache, dizziness, GI bleed, back pain, seizure, CVA, palpatations, mental health, musculoskeletal)? @ -Cellulitis, chronic wound, osteomyelitis, superficial skin infection, this list is not all inclusive. EKG interpreted by me (3pts min.). @ -None X-rays interpreted by me (1pt min.). @ -X-ray of the left ankle reveals noted a large amount of swelling near the medial malleolus, no evidence for osseous erosion or fracture. Findings similar to 06/09/2023. CT interpreted by me (1pt min.). @ -None done U/S interpreted by me (1pt. min.). @ -None done What testing was considered but not performed or refused? (CT, X-rays, U/S, labs)? Why? @ -Lab such as CBC, CMP, lactate were considered but deferred at this time due to patient not experiencing systemic symptoms. Vitals are stable upon arrival therefore minimal clinical concern for concern of sepsis and admission for antibiotics. Patient is in agreement with this. What meds were considered but not given or refused? Why? @ -None Did you discuss the management of the patient with other professionals (professionals i.e. , PA, OIL BURNER, lab, RT, psych nurse, psychosocial rehabilitation counselor, production administrative assistant, teacher, articulation officer, case mgr)? Give summary @ -No Was smoking cessation discussed for >3mins.? @ -No Was critical care preformed (if so, how long)? @ -No Were there social determinants of health that impacted care today? How? (Homelessness, low income, unemployed, alcoholism, drug addiction, transportation, low edu. Level, literacy, decrease access to med. care, [facility], rehab)? @ -No Was there de-escalation of care discussed even if they declined (Discuss DNR or withdrawal of care, Hospice)? DNR status @ -No What co-morbidities impacted this encounter? (DM, HTN, Smoking, COPD, CAD, Cancer, CVA, ARF, Chemo, Hep., AIDS, mental health diagnosis, sleep apnea, morbid obesity)? @ -None Was patient admitted / discharged? Hospital course, mention meds given and route, prescriptions, significant lab abnormalities, going to OR and other pertinent info. @ -Discharged. 33-year-old female with a left chronic ankle wound. On examination there is noted edema, soft tissue swelling, callus of the left medial ankle. Patient is not expressing systemic symptoms such as fever, nausea, vomiting, weakness therefore labs were deferred. Patient did agree with this. She is sent for an x-ray of the left ankle due to recent imaging completed in May 2023. X-ray nonconcerning for signs of osteomyelitis or bony involvement. Attempted incision and drainage with use of 5% lidocaine with blood return, no purulence. Area was wrapped and prescription of antibiotics sent to the pharmacy. Recommend that patient keeps appointment as scheduled on with foot and ankle specialist. Questions answered at bedside. Patient is stable for discharge. Strict return parameters discussed. Case discussed with Dr. Nevarez Undiagnosed new problem with uncertain prognosis? @ -No Drug Therapy requiring intensive monitoring for toxicity (Heparin, Nitro, Insulin, Cardizem)? @ -No Were any procedures done? @ -Incision and drainage Diagnosis/symptom? @ -Chronic left ankle wound Acute, or Chronic, or Acute on Chronic? @ -Acute Uncomplicated (without systemic symptoms) or Complicated (systemic symptoms)? @ -Uncomplicated Side effects of treatment? @ -No Exacerbation, Progression, or Severe Exacerbation? @ -No Poses a threat to life or bodily function? How? (Chest pain, [place], [place], pneumonia, PE, COPD, DKA, ARF, appy, cholecystitis, CVA, Diverticulitis, Homicidal, Suicidal, threat to staff... and all critical care pts) @ -No Disposition Clinical Impression: Chronic wound of extremity Disposition: HOME SELF-CARE Condition: Good Instructions (If sedation given, give patient instructions): Chronic Wounds (ED) Additional Instructions: Return to the emergency department if your symptoms worsen or not improve. Complete full course of antibiotics as prescribed. follow up as scheduled with your foot and ankle specialist this week for further evaluation. Prescriptions: Doxycycline [Vibramycin] 100 mg PO BID #20 capsule Is patient prescribed a controlled substance at d/c from ED?: No Referrals: Erasmo Edward DO [Primary Care Provider] - 1-2 days Time of Disposition: 11:14
--- NOTE | 2023-12-22 11:06 | XR ---
EXAMINATION TYPE: XR ankle complete LT DATE OF EXAM: 12/22/2023 10:55 AM CLINICAL INDICATION:Female, 33 years old with history of chronic medial ankle wound, increasing swell ing; [facility] COMPARISON: . 06/09/2023 TECHNIQUE: XR ankle complete LT; ankle is imaged in frontal, lateral and oblique projections. FINDINGS: There is no evidence of acute osseous pathology. No evidence of subluxation or dislocation. Kager's fat pad is intact. Large amount of soft tissue edema/swelling with possible skin defect in the medial malleolus. No evidence for osseous erosion No radiopaque foreign bodies are identified. Multifocal d egeneration changes throughout the joints of the foot with osteophyte formation and joint space narro wing. IMPRESSION: Large amount swelling near the medial malleolus. No evidence for osseous erosion or fracture. Findin gs similar to 06/09/2023.
[2023-12-22] MEDS: LIDOCAINE 1% INJ 10MG/ML (20 ML MDV) SQ ONE (11:19)
[2023-12-22 13:26] VITALS: BP 147/76; PULSE 76; RESP 18; TEMP 98.2
== END 2023-12-22 11:45 | disposition home or self-care (01) ==
LOC: EC 10:12
DX: S91.002A Unspecified open wound, left ankle, initial encounter (principal); Z88.1 Allergy status to other antibiotic agents; Z91.040 Latex allergy status; X58.XXXA Exposure to other specified factors, initial encounter
CPT/HCPCS: 73610; 10060; 99283; J2001

== ENCOUNTER → 2024-01-29 | Outpatient (CLI) | payer OTHER | END | disposition home or self-care (01) | LOC: RADMRIMAIN 10:25 | PROVIDERS: ATTEND Podiatrist Foot & Ankle Surgery | DX: Z53.9 Procedure and treatment not carried out, unspecified reason (principal) ==

== ENCOUNTER 2024-11-04 20:59 | Emergency (ER) | payer OTHER ==
[2024-11-04 21:05] VITALS: TEMP 98.4
--- NOTE | 2024-11-04 21:33 | ED ---
Female Urogenital HPI - General Chief complaint: Urogenital Stated complaint: Bladder Infection Time Seen by Provider: 11/04/24 21:33 Source: patient, RN notes reviewed Mode of arrival: wheelchair Limitations: no limitations - History of Present Illness Initial comments: 34-year-old female with a past medical history significant of spina bifida presenting to the ER for evaluation of dysuria. Patient does straight catheterize herself due to spina bifida. She states for the past day or 2 she has been experiencing dysuria with self catheterization along with cloudy urine. She also reports nausea and hip pain which are classic symptoms of her UTIs. Patient denies any fevers, chills or abdominal pain. She denies any hematuria or history of kidney stones. No back/flank pain or abnormal vaginal bleeding or discharge. Patient has taken [id number] ibuprofen and Tylenol for discomfort at home. No concern of STDs. Denies . Patient has no other complaints. - Related Data Previous Rx's Medication Instructions Recorded Metoprolol Tartrate [Lopressor] 25 mg PO BID@0600,1800 30 Days #60 09/06/22 tab Sulfamethox-Tmp 800-160Mg [Bactrim 1 each PO Q12HR 5 Days #10 tab 09/06/22 Ds] Sulfamethox-Tmp 800-160Mg [Bactrim 1 tab PO Q12HR 7 Days #14 tab 06/10/23 DS 800-160 mg] Ondansetron Odt [Zofran Odt] 4 mg PO Q8HR PRN #10 tab 12/05/23 Sulfamethox-Tmp 800-160Mg [Bactrim 1 each PO Q12HR #20 tab 12/05/23 Ds] Doxycycline [Vibramycin] 100 mg PO BID #20 capsule 12/22/23 Sulfamethox-Tmp 800-160Mg [Bactrim 1 each PO Q12HR 5 Days #10 tab 11/04/24 Ds] Allergies Allergy/AdvReac Type Severity Reaction Status Date / Time ceftriaxone [From Rocephin] AdvReac Nausea & Verified 11/04/24 21:05 Vomiting latex AdvReac Fever from Verified 11/04/24 21:05 cath Review of Systems ROS Statement: Those systems with pertinent positive or pertinent negative responses have been documented in the HPI. ROS Other: All systems not noted in ROS Statement are negative. 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 covid 11/08 History of Any Multi-Drug Resistant Organisms: MRSA Date of last positivie culture/infection: 12/05/18 MDRO Source:: Left Ankle Past Surgical History: Back Surgery, Bladder Surgery, Hernia Repair, Orthopedic Surgery Additional Past Surgical History / Comment(s): Multi orthopedic surgeries since childhood. AUTOMATION QA TESTER shunt. Past Anesthesia/Blood Transfusion Reactions: No Reported Reaction Past Psychological History: No Psychological Hx Reported Smoking Status: Never smoker Past Alcohol Use History: None Reported Past Drug Use History: None Reported - Past Family History Mother Family Medical History: Cancer Additional Family Medical History / Comment(s): grandparents - lung Father History Unknown: Yes General Exam Limitations: no limitations General appearance: alert, in no apparent distress Respiratory exam: Present: normal lung sounds bilaterally. Absent: respiratory distress, wheezes, rales, rhonchi, stridor Cardiovascular Exam: Present: regular rate, normal rhythm, normal heart sounds. Absent: systolic murmur, diastolic murmur, rubs, gallop, clicks GI/Abdominal exam: Present: soft, normal bowel sounds. Absent: distended, t enderness, guarding, rebound, rigid Back exam: Present: other (no CVA tenderness bilaterally) Neurological exam: Present: alert, oriented X3, CN II-XII intact Skin exam: Present: warm, dry, intact, normal color. Absent: rash Course Vital Signs 11/04/24 11/04/24 21:01 21:59 Temperature 98.4 F 98.4 F Pulse Rate 94 81 Respiratory 18 20 Rate Blood Pressure 135/83 135/79 O2 Sat by Pulse 97 98 Oximetry Medical Decision Making - Medical Decision Making Was pt. sent in by a medical professional or institution (, PA, WHEEL PRESS OPERATOR, urgent care, hospital, or usp...) When possible be specific @ -No Did you speak to anyone other than the patient for history (EMS, parent, family, police, friend...)? What history was obtained from this source @ -No Did you review nursing and triage notes (agree or disagree)? Why? @ -I reviewed and agree with nursing and triage notes Were old charts reviewed (outside hosp., previous admission, EMS record, old EKG, old radiological studies, urgent care reports/EKG's, usp records)? Report findings @ -No old charts were reviewed Differential Diagnosis (chest pain, altered mental status, abdominal pain women, abdominal pain men, vaginal bleeding, weakness, fever, dyspnea, syncope, headache, dizziness, GI bleed, back pain, seizure, CVA, palpatations, mental health, musculoskeletal)? @ -Differential Abdominal Pain Women: Appendicitis, Cholecystitis, diverticulosis, ischemic bowel, pancreatitis, hepatitis, UTI, gastroenteritis, AAA, incarcerated hernia, bowel obstruction, constipation, inflammatory bowel, hepatitis, peptic ulcer disease, splenic infarction, perforated viscus, vulvitis, ovarian torsion, PID, kidney stone, placenta abruption, this is not meant to be an all-inclusive list EKG interpreted by me (3pts min.). @ -None done X-rays interpreted by me (1pt min.). @ -None done CT interpreted by me (1pt min.). @ -None done U/S interpreted by me (1pt. min.). @ -None done What testing was considered but not performed or refused? (CT, X-rays, U/S, labs)? Why? @ -None What meds were considered but not given or refused? Why? @ -None Did you discuss the management of the patient with other professionals (professionals i.e. , PA, WHEEL PRESS OPERATOR, lab, RT, psych nurse, social insurance administrator, commission broker, teacher, seal delivery vehicle officer, registered nurse hh case manager)? Give summary @ -No Was smoking cessation discussed for >3mins.? @ -No Was critical care preformed (if so, how long)? @ -No Were there social determinants of health that impacted care today? How? (Homelessness, low income, unemployed, alcoholism, drug addiction, transportation, low edu. Level, literacy, decrease access to med. care, group home, rehab)? @ -No Was there de-escalation of care discussed even if they declined (Discuss DNR or withdrawal of care, Hospice)? DNR status @ -No What co-morbidities impacted this encounter? (DM, HTN, Smoking, COPD, CAD, Cancer, CVA, ARF, Chemo, Hep., AIDS, mental health diagnosis, sleep apnea, morbid obesity)? @ -Patient with a history of spina bifida patient straight catheterizes herself for urination Was patient admitted / discharged? Hospital course, mention meds given and route, prescriptions, significant lab abnormalities, going to OR and other pertinent info. @ -Discharge. 34-year-old female presenting to the ER for evaluation of UTI symptoms. No back, flank or abdominal pain. No abnormal vaginal bleeding or discharge. Upon rooming, history and physical exam completed. Vitals with acceptable limits. Patient in no signs of acute distress nontoxic-appearing. No focal abdominal tenderness on exam. Urinalysis concerning of infection with positive nitrates, greater than 182 WBCs and many WBC clumps. hCG negative. Prior urine cultures reviewed which shows susceptibility to Bactrim, patient will be started on this. Ciprofloxacin was considered but patient states it does not typically work well for her and prefers Bactrim. Patient given Pyridium for symptom control in the ER. patient discharged in stable condition with follow-up to PCP.Return parameters discussed. Patient verbally expressed understanding and agreement with care plan. Case discussed with ED attending, Dr. Bingham. Undiagnosed new problem with uncertain prognosis? @ -No Drug Therapy requiring intensive monitoring for toxicity (Heparin, Nitro, Insulin, Cardizem)? @ -No Were any procedures done? @ -No Diagnosis/symptom? @ -UTI Acute, or Chronic, or Acute on Chronic? @ -Acute Uncomplicated (without systemic symptoms) or Complicated (systemic symptoms)? @ -Uncomplicated Side effects of treatment? @ -No Exacerbation, Progression, or Severe Exacerbation? @ -No Poses a threat to life or bodily function? How? (Chest pain, [place], [place], pneumonia, PE, COPD, DKA, ARF, appy, cholecystitis, CVA, Diverticulitis, Homicidal, Suicidal, threat to staff... and all critical care pts) @ -No - Lab Data Lab Results 11/04/24 11/04/24 Range/Units 21:35 21:35 Urine Color Colorless Urine Appearance Cloudy H (Clear) Urine pH 6.0 (5.0-8.0) Ur Specific [place] 1.018 (1.001-1.035) Urine Protein Trace H (Negative) Urine Glucose (UA) Negative (Negative) Urine Ketones Negative (Negative) Urine Blood Trace H (Negative) Urine Nitrite Positive H (Negative) Urine Bilirubin Negative (Negative) Urine Urobilinogen <2.0 (<2.0) mg/dL Ur Leukocyte Esterase Large H (Negative) Urine RBC 13 H (0-5) /hpf Urine WBC >182 H (0-5) /hpf Urine WBC Clumps Many H (None) /hpf Ur Squamous Epith Cells 3 (0-4) /hpf Urine HCG, Qual Not Detected (Not Detectd) Disposition Clinical Impression: UTI (urinary tract infection) Disposition: HOME SELF-CARE Condition: Stable Instructions (If sedation given, give patient instructions): Urinary Tract Infection in Women (ED) Additional Instructions: Follow-up with PCP. Take bactrim as prescribed. Return to the ER for any new or worsening symptoms. Prescriptions: Sulfamethox-Tmp 800-160Mg [Bactrim Ds] 1 each PO Q12HR 5 Days #10 tab Is patient prescribed a controlled substance at d/c from ED?: No Referrals: Erasmo Edward DO [Primary Care Provider] - 1-2 days Time of Disposition: 21:55
[2024-11-04 21:44] LABS: Appearance,Urine Cloudy (Clear); Bilirubin,Urine Negative (Negative); Blood,Urine Trace (Negative); Color,Urine Colorless; Glucose,Urine (UA) Negative (Negative); Ketones,Urine Negative (Negative); Leukocyte Esterase,Urine Large (Negative); Nitrite,Urine Positive (Negative); Protein,Urine Trace (Negative); RBC,Urine 13 /hpf (0-5); Specific Gravity,Urine 1.018 (1.001-1.035); Squamous Epithelial Cell,Urine 3 /hpf (0-4); Urobilinogen,Urine <2.0 mg/dL (<2.0); WBC,Urine >182 /hpf (0-5)
[2024-11-04] MEDS: PHENAZOPYRIDINE 100 MG TAB PO STA (21:57)
[2024-11-04] MEDS: SULFAMETHOX-TMP 800-160MG 1 EACH TAB PO STA (21:57)
[2024-11-04 22:00] VITALS: BP 135/79; PULSE 81; RESP 20
== END 2024-11-04 21:59 | disposition home or self-care (01) ==
LOC: EC 20:59
DX: N39.0 Urinary tract infection, site not specified (principal); Q05.9 Spina bifida, unspecified; Z91.040 Latex allergy status; Z88.1 Allergy status to other antibiotic agents
CPT/HCPCS: 81001; 81025; 87077; 87086; 87186; 99283